=== PATIENT | female | born 1985 | race Caucasian/White ===

== ENCOUNTER 2016-10-22 17:13 | Inpatient (IN) | payer MEDICAID, OTHER ==
[~2016-10-22] VITALS: Ht 170.2 cm; Wt 69.6 kg
[2016-10-22] VITALS (7 sets, daily range): BP systolic 117–151; BP diastolic 79–93
[2016-10-22] MEDS ORDERED: humalog insulin pump (17:29)
[2016-10-22] MEDS ORDERED: HYDR50CA PO (17:29)
[2016-10-22] MEDS ORDERED: BUSP30TA2 PO (17:29)
[2016-10-22] MEDS ORDERED: NAPR500T PO (17:29)
[2016-10-22] MEDS ORDERED: GABA800T2 PO (17:29)
[2016-10-22] MEDS ORDERED: NS IV 1000 ML 1,000 ML IV ONE ×2 (18:42→20:22)
--- NOTE | 2016-10-22 19:12 | Diagnostic Imaging Report ---
INDICATION: History of previous fracture. Infection. COMPARISON: None FINDINGS: Multiple deformities of the toes of the right foot are identified. There is comminuted deformity involving the distal margins of the first proximal phalanx. There is underlying osteolysis. There may be some osteolysis involving the proximal margins of the first distal phalanx as well. Evaluation of the second toe demonstrates extensive osteolysis involving the distal phalanx. There is transverse oriented fracture involving the proximal margins of the second middle phalanx as well. There is displacement of the proximal fracture fragments with proximal retraction of the distal fracture fragment. The third and fourth toes have an unremarkable radiographic appearance. Evaluation of the fifth toe demonstrates acute appearing transverse oriented fracture of the distal phalanx. No unexpected radiopaque foreign bodies are seen. There is significant soft tissue swelling, particularly involving the second toe. IMPRESSION: 1. Multiple deformities of the toes of the right foot as described above. Osteolysis of the first proximal phalanx and second distal phalanx are identified and are consistent with underlying osteomyelitis. 2. Transverse oriented fractures involving the proximal margins of the second middle phalanx and fifth distal phalanx are also present. 3. There may be some early or mild osteomyelitis involving the proximal margins of the first distal phalanx as well. Dictated by: Dictated on workstation # [id number]
[2016-10-22] MEDS ORDERED: PIPERACILLIN SODIUM/TAZOBACTAM 4.5 GM in NS (IVPB) 100 ML IV ONE (19:15)
[2016-10-22] MEDS ORDERED: VANCOMYCIN IV ADD-VANTAGE 1,000 MG in SODIUM CHLORIDE (ADD-VANTAGE) 250 ML IV ONE (19:15)
[2016-10-22] MEDS ORDERED: fentaNYL INJECTION 100 MCG/2 ML AMP IVP ONE (19:30)
[2016-10-22 19:39] LABS: BASOPHILS # (AUTO) 0.1 10^3/uL (0.0-0.1); BASOPHILS % (AUTO) 1 % (0-10); EOSINOPHILS # (AUTO) 0.2 10^3/uL (0.0-0.3); EOSINOPHILS % (AUTO) 2 % (0-10); LYMPHOCYTES # (AUTO) 2.4 X 10^3 (1.0-4.0); LYMPHOCYTES % (AUTO) 33 % (12-44); MEAN CORPUSCULAR HEMOGLOBIN 25 PG (25-34); MEAN CORPUSCULAR HGB CONC 33 G/DL (32-36); MEAN CORPUSCULAR VOLUME 76 FL (80-99); MEAN PLATELET VOLUME 10.8 FL (7.4-10.4); MONOCYTES % (AUTO) 13 % (0-12); NEUTROPHILS # (AUTO) 3.8 X 10^3 (1.8-7.8); NEUTROPHILS % (AUTO) 51 % (42-75); PLATELET COUNT 267 10^3/uL (130-400); RED CELL DISTRIBUTION WIDTH 14.4 % (10.0-14.5); WHITE BLOOD COUNT 7.4 10^3/uL (4.3-11.0)
[2016-10-22 20:18] LABS: ALBUMIN 3.7 G/DL (3.2-4.5); BILIRUBIN,TOTAL 0.2 MG/DL (0.1-1.0); CALCIUM 8.7 MG/DL (8.5-10.1); CREATININE SERUM 1.61 MG/DL (0.60-1.30); TOTAL PROTEIN 7.4 G/DL (6.4-8.2); hs C REACTIVE PROTEIN 0.38 MG/DL (0.00-0.50)
[2016-10-22 20:21] LABS: POTASSIUM 7.2 MMOL/L (3.6-5.0)
[2016-10-22] MEDS ORDERED: inSUlin (REGULAR) HUMAN 1 UNIT/0.01 ML (CHARGE PER UNIT) IV ONE ×2 (20:30→21:30)
[2016-10-22] MEDS ORDERED: SOD POLYSTERENE 15 GM/60 ML (KAYEXALATE) UNIT DOSE PO ONE (20:30)
[2016-10-22 20:50] LABS: BILIRUBIN,URINE NEGATIVE (NEGATIVE); KETONES,URINE NEGATIVE (NEGATIVE); LEUKOCYTE ESTERASE ,URINE NEGATIVE (NEGATIVE); NITRITE,URINE NEGATIVE (NEGATIVE); PH,URINE 5 (5-9); PROTEIN,URINE NEGATIVE (NEGATIVE); UROBILINOGEN,URINE NORMAL (NORMAL)
[2016-10-22 20:53] LABS: SQUAMOUS EPITHELIAL CELL,UR 25-50 /HPF; WBC,URINE 0-2 /HPF
--- NOTE | 2016-10-22 21:38 | ED General ---
General Chief Complaint: Lower Extremity Stated Complaint: R TOE INFECTION Nursing Triage Note: pt reports right 2nd toe infection x 1 month. she has taken bactrim, but toe hasn't improved. Nursing Sepsis Screen: No Definite Risk Source of Information: Patient Exam Limitations: No Limitations History of Present Illness Time Seen by Provider: 18:30 Initial Comments This 31-year-old woman presents to the emergency room with swollen, painful, and red toes on the right foot. Symptoms have been present for 3-4 weeks. She was placed on Bactrim 1 week and finished the prescription about 2 weeks ago. She had no improvement. She did not follow-up until today. Her primary care provider is [facility] in [place]. She is presently staying at the [facility]. She denies any measured fevers but thinks she may have had some subjective fevers at home. She denies any drug or alcohol use. She does smoke. She is a type I diabetic who has been on insulin since her early teens. She uses an insulin pump. Allergies and Home Medications Allergies Coded Allergies: No Known Drug Allergies (Unverified , 10/22/16) Home Medications (Reported) Buspirone HCl 30 Mg Tablet 30 MG PO TID (Reported) Gabapentin 800 Mg Tablet 800 MG PO TID (Reported) Hydroxyzine Pamoate 50 Mg Capsule 50 MG PO TID (Reported) Naproxen 500 Mg Tablet 500 MG PO BID (Reported) Constitutional: see HPI EENTM: no symptoms reported Respiratory: no symptoms reported Cardiovascular: other (tachycardia) Gastrointestinal: no symptoms reported Genitourinary: no symptoms reported Musculoskeletal: no symptoms reported Skin: other (numerous skin sores) Psychiatric/Neurological: No Symptoms Reported Hematologic/Lymphatic: No Symptoms Reported Past Vntspxi-Llpdgh-Oqlxfy Hx Patient Social History Alcohol Use: Denies Use Recreational Drug Use: No Smoking Status: Current Everyday Smoker Type Used: Cigarettes Recent Foreign Travel: No Contact w/Someone Who Travel: No Recent Infectious Disease Expo: No Surgeries HX Surgeries: Yes Surgeries: Cardiac (as an ), Section Respiratory Hx Respiratory Disorders: Yes (tobaccoism) Cardiovascular Hx Cardiac Disorders: Yes (cardiac surgery as an ) Neurological Hx Neurological Disorders: No Reproductive System : No Genitourinary Hx Genitourinary Disorders: No Gastrointestinal Hx Gastrointestinal Disorders: Yes (celiac disease) Musculoskeletal Hx Musculoskeletal Disorders: No Endocrine Hx Endocrine Disorders: Yes Endocrine Disorders: Diabetes, Insulin dep (type I diabetes since early teens) HEENT HX ENT Disorders: No Cancer Hx Cancer: No Psychosocial Hx Psychiatric Problems: No Integumentary HX Skin/Integumentary Disorder: No Family Medical History Significant Family History: No Pertinent Family Hx Physical Exam Vital Signs Vital Sign - Last 12Hours 10/22/16 17:25 Temp 97.9 Pulse 109 Resp 18 B/P 119/78 Capillary Refill : Less Than 3 Seconds General Appearance: No Apparent Distress WD/WN HEENT: PERRL/EOMI Normal ENT Inspection Neck: Normal Inspection Respiratory: Lungs Clear Normal Breath Sounds No Accessory Muscle Use No Respiratory Distress Cardiovascular: No Edema No Murmur Tachycardia Gastrointestinal: Normal Bowel Sounds Non Tender Soft Extremity: Other (numerous skin sores. The right great toe is tender and swollen. The right second toe is markedly edematous, erythematous, and tender. The right fifth toe is tender and swollen with mild erythema. There is streaking of erythema from the second toe up the dorsum of the foot.) Neurologic/Psychiatric: Alert Oriented x3 No Motor/Sensory Deficits Normal Mood/Affect bilingual interpreter II-XII Norm as Tested Skin: Normal Color Warm/Dry Other (numerous skin sores in various stages throughout the body. See extremity exam above) Progress/Results/Core Measures Results/Orders Lab Results Laboratory Tests Test 10/22/16 19:30 10/22/16 19:45 10/22/16 20:30 10/22/16 21:02 Range/Units Basophils # (Auto) 0.1 0.0-0.1 10^3/uL Basophils (%) (Auto) 1 0-10 % Eosinophils # (Auto) 0.2 0.0-0.3 10^3/uL Eosinophils (%) (Auto) 2 0-10 % Hematocrit 33 L 35-52 % Hemoglobin 10.9 L 11.5-16.0 G/DL Lactic Acid Level 0.8 0.5-2.0 MMOL/L Lymphocytes # (Auto) 2.4 1.0-4.0 X 10^3 Lymphocytes (%) (Auto) 33 12-44 % Mean Corpuscular Hemoglobin 25 25-34 PG Mean Corpuscular Hemoglobin Concent 33 32-36 G/DL Mean Corpuscular Volume 76 L 80-99 FL Mean Platelet Volume 10.8 H 7.4-10.4 FL Monocytes # (Auto) 1.0 0.0-1.0 X 10^3 Monocytes (%) (Auto) 13 H 0-12 % Neutrophils # (Auto) 3.8 1.8-7.8 X 10^3 Neutrophils (%) (Auto) 51 42-75 % Platelet Count 267 130-400 10^3/uL Red Blood Count 4.40 4.35-5.85 10^6/uL Red Cell Distribution Width 14.4 10.0-14.5 % White Blood Count 7.4 4.3-11.0 10^3/uL Alanine Aminotransferase (ALT/SGPT) 40 0-55 U/L Albumin 3.7 3.2-4.5 G/DL Alkaline Phosphatase 163 H 40-136 U/L Anion Gap 12 5-14 MMOL/L Aspartate Amino Transf (AST/SGOT) 17 5-34 U/L BUN/Creatinine Ratio 15 Blood Urea Nitrogen 24 H 7-18 MG/DL C-Reactive Protein High Sensitivity 0.38 0.00-0.50 MG/DL Calcium Level 8.7 8.5-10.1 MG/DL Carbon Dioxide Level 15 L 21-32 MMOL/L Chloride Level 101 98-107 MMOL/L Creatinine 1.61 H 0.60-1.30 MG/DL Estimat Glomerular Filtration Rate 37 Glucose Level 768 *H 70-105 MG/DL Magnesium Level 1.8 1.8-2.4 MG/DL Potassium Level 7.2 *H 3.6-5.0 MMOL/L Serum Test, Qualitative NEGATIVE NEGATIVE Sodium Level 128 L 135-145 MMOL/L Total Bilirubin 0.2 0.1-1.0 MG/DL Total Protein 7.4 6.4-8.2 G/DL Ur Tricyclic Antidepressants Screen NEGATIVE NEGATIVE Urine Amphetamines Screen NEGATIVE NEGATIVE Urine Bacteria TRACE /HPF Urine Barbiturates Screen NEGATIVE NEGATIVE Urine Benzodiazepines Screen NEGATIVE NEGATIVE Urine Bilirubin NEGATIVE NEGATIVE Urine Cannabinoids Screen NEGATIVE NEGATIVE Urine Casts NONE /LPF Urine Clarity CLEAR Urine Cocaine Screen NEGATIVE NEGATIVE Urine Color YELLOW Urine Crystals NONE /LPF Urine Culture Indicated NO Urine Glucose (UA) 4+ H NEGATIVE Urine Ketones NEGATIVE NEGATIVE Urine Leukocyte Esterase NEGATIVE NEGATIVE Urine Methadone Screen NEGATIVE NEGATIVE Urine Methamphetamines Screen NEGATIVE NEGATIVE Urine Mucus NEGATIVE /LPF Urine Nitrite NEGATIVE NEGATIVE Urine Opiates Screen NEGATIVE NEGATIVE Urine Oxycodone Screen NEGATIVE NEGATIVE Urine Phencyclidine Screen NEGATIVE NEGATIVE Urine Propoxyphene Screen NEGATIVE NEGATIVE Urine Protein NEGATIVE NEGATIVE Urine RBC NONE /HPF Urine RBC (Auto) NEGATIVE NEGATIVE Urine Specific Jones 1.015 L 1.016-1.022 Urine Squamous Epithelial Cells 25-50 H /HPF Urine Urobilinogen NORMAL NORMAL MG/DL Urine WBC 0-2 /HPF Urine pH 5 5-9 Glucometer 579 *H 70-110 MG/DL My Orders Orders-CHAUNCEY ALCANTARA MD Cbc With Automated Diff (10/22/16 18:42) Comprehensive Metabolic Panel (10/22/16 18:42) Lactic Acid Analyzer (10/22/16 18:42) Blood Culture (10/22/16 18:42) Ua Culture If Indicated (10/22/16 18:42) O2 (10/22/16 18:42) Saline Lock/Iv-Start (10/22/16 18:42) Vital Signs Adult Sepsis Patie Q1HR (10/22/16 18:42) Remove Rings In Anticipation O (10/22/16 18:42) Hs C Reactive Protein (10/22/16 18:42) Ns Iv 1000 Ml (Sodium Chloride 0.9%) (10/22/16 18:42) Toe(S) (10/22/16 18:42) Vancomycin Iv Add-[place] (Vancomycin Iv (10/22/16 19:15) Piperacillin Sodium/Tazobactam (Zosyn Vi (10/22/16 19:15) Fentanyl Injection (Sublimaze Injection (10/22/16 19:30) Hcg,Qualitative Serum (10/22/16 19:26) Drug Screen Stat (Urine) (10/22/16 20:19) Magnesium (10/22/16 20:21) Ekg Tracing (10/22/16 20:21) Monitor-Rhythm Ecg Trace Only (10/22/16 20:21) Insulin (Regular) Human (Humulin R (Per (10/22/16 20:30) Ns Iv 1000 Ml (Sodium Chloride 0.9%) (10/22/16 20:22) Sodium Polystyrene Sulfonate (Kayexalate (10/22/16 20:30) Insulin (Regular) Human (Humulin R (Per (10/22/16 21:30) Basic Metabolic Panel (10/22/16 21:27) Medications Given in ED Current Medications Medications Dose Ordered Sig/Dipti Route Start Time Stop Time Status Last Admin Dose Admin Fentanyl Citrate 50 mcg ONCE ONCE IVP 10/22/16 19:30 10/22/16 19:31 DC 10/22/16 19:44 50 MCG Insulin Human Regular 5 unit ONCE ONCE IV 10/22/16 21:30 10/22/16 21:31 DC 10/22/16 21:41 5 UNIT Insulin Human Regular 10 unit ONCE ONCE IV 10/22/16 20:30 10/22/16 20:31 DC 10/22/16 20:32 10 UNIT Piperacillin Sod/ Tazobactam Sod/ Sodium Chloride 100 ml @ 200 mls/hr ONCE ONCE IV 10/22/16 19:15 10/22/16 19:44 DC 10/22/16 19:57 200 MLS/HR Sodium Polystyrene Sulfonate 15 gm ONCE ONCE PO 10/22/16 20:30 10/22/16 20:31 DC 10/22/16 22:03 15 GM Sodium Chloride 1,000 ml @ 0 mls/hr Q0M ONCE IV 10/22/16 18:42 10/22/16 18:44 DC 10/22/16 19:20 1,000 MLS/HR Vancomycin HCl 1000 mg/Sodium Chloride 250 ml @ 250 mls/hr ONCE ONCE IV 10/22/16 19:15 10/22/16 20:19 DC 10/22/16 21:14 250 MLS/HR Vital Signs/I&O Vital Sign - Last 12Hours 10/22/16 17:25 Temp 97.9 Pulse 109 Resp 18 B/P 119/78 Blood Pressure Mean: 92 Point of Care Testing Finger Stick Blood Glucose: 579 Blood Glucose Action Taken: RN and notified Progress Note : Progress Note On assessment patient was noted to be tachycardic with signs of infection in the toes of the right foot. Sepsis workup was pursued. X-ray suggested osteomyelitis of 3 toes. Zosyn and vancomycin were ordered. Blood sugar was found to be markedly elevated. 2 L of normal saline were administered along with a total of 15 units of insulin. Blood cultures were collected prior to antibiotics. X-ray images of the foot were reviewed by Dr. Sandoval. He recommended referral to podiatry. We will admit this patient and treat infection with IV antibiotics. DKA will be corrected in the ICU tonight. Podiatry can be consulted in the next 1-2 days after her other conditions calmed down. Fentanyl was used for pain control. Blood sugars were trending down. Hyperkalemia was noted and Kayexalate was administered in addition to the fluids and insulin. A repeat BMP will be collected at 22:00. ECG Initial ECG Impression Date: Oct 22, 2016 Initial ECG Impression Time: 20:30 Initial ECG Rate: 99 Initial ECG Rhythm: Normal Sinus Comment Sinus rhythm with no ST elevation or depression. T waves are somewhat peaked probably secondary to the hyperkalemia. No abnormal intervals. Diagnostic Imaging Diagonstic Imaging: Xray Plain Films/CT/US/NM/MRI: other (right toes) Comments X-ray viewed by me and report reviewed. See report below: [place], [place] NAME: [facility] REC#: [id number] PT STATUS: REG ER : 1985 PHYSICIAN: CHAUNCEY ALCANTARA MD ADMIT DATE: 10/22/16/ER Draft Date of Exam:10/22/16 TOE(S) INDICATION: History of previous fracture. Infection. COMPARISON: None FINDINGS: Multiple deformities of the toes of the right foot are identified. There is comminuted deformity involving the distal margins of the first proximal phalanx. There is underlying osteolysis. There may be some osteolysis involving the proximal margins of the first distal phalanx as well. Evaluation of the second toe demonstrates extensive osteolysis involving the distal phalanx. There is transverse oriented fracture involving the proximal margins of the second middle phalanx as well. There is displacement of the proximal fracture fragments with proximal retraction of the distal fracture fragment. The third and fourth toes have an unremarkable radiographic appearance. Evaluation of the fifth toe demonstrates acute appearing transverse oriented fracture of the distal phalanx. No unexpected radiopaque foreign bodies are seen. There is significant soft tissue swelling, particularly involving the second toe. IMPRESSION: 1. Multiple deformities of the toes of the right foot as described above. Osteolysis of the first proximal phalanx and second distal phalanx are identified and are consistent with underlying osteomyelitis. 2. Transverse oriented fractures involving the proximal margins of the second middle phalanx and fifth distal phalanx are also present. 3. There may be some early or mild osteomyelitis involving the proximal margins of the first distal phalanx as well. Dictated on workstation # [id number] Dict: 10/22/161904 Trans: 10/22/161911 GREGORIO [id number] Interpreted by: SALMA MALDONADO Departure Communication Time/Spoke to Admitting Phy: 21:[address] Jay Impression Impression: Primary Impression: Diabetic ketoacidosis Qualified Code: E10.10 - Type 1 diabetes mellitus with ketoacidosis without coma Additional Impressions: Hyperkalemia Osteomyelitis of toe of right foot Disposition: ADMITTED INPATIENT Condition: Improved Decision to Admit Reason: Admit from ER (General) Decision to Admit/Date: Oct 22, 2016 Time/Decision to Admit Time: 20:00 Departure-Patient Inst. Referrals: NO,LOCAL PHYSICIAN (PCP/Family) Primary Care Physician CHAUNCEY ALCANTARA MD Oct 22, 2016 21:38
[2016-10-22] MEDS ORDERED: 1/2 NS IV SOLUTION 1,000 ML IV SCH (22:30)
[2016-10-22] MEDS ORDERED: CATHETER FLUSH 10 ML SYR IV PRN (22:30)
[2016-10-22] MEDS ORDERED: REGULAR inSUlin DRIP 250 UNITS/NS 250 ML IV SCH ×2 (22:30)
[2016-10-22] MEDS ORDERED: DEXTROSE 10% IV SOLUTION 1,000 ML IV SCH (22:30)
[2016-10-22] MEDS ORDERED: NS IV 1000 ML X 1 WIDE OPEN IV ONE (22:30)
[2016-10-22] MEDS ORDERED: NS (IVPB) 100 ML ONE (22:36)
[2016-10-22] MEDS: HYDROcodone/APAP 5 MG/325 MG (LORTAB) TAB PO PRN (22:41)
[2016-10-22 23:05] LABS: CALCIUM 7.8 MG/DL (8.5-10.1); CREATININE SERUM 1.17 MG/DL (0.60-1.30); POTASSIUM 5.2 MMOL/L (3.6-5.0)
[2016-10-23] VITALS (10 sets, daily range): BP systolic 112–134; BP diastolic 72–102
[2016-10-23] MEDS ORDERED: inSUlin DETERMIR 1 UNIT/0.01 ML (LEVEMIR) CHARGE PER UNIT SQ ONE (00:38)
[2016-10-23] MEDS ORDERED: inSUlin (REGULAR) HUMAN 1 UNIT/0.01 ML (CHARGE PER UNIT) ONE ×2 (00:38→04:06)
[2016-10-23] MEDS: inSUlin ASPART (NovoLOG) 1 UNIT/0.01 ML (CHARGE PER UNIT) SC SCH ×2 (01:00→05:40)
[2016-10-23] MEDS ORDERED: inSUlin DETERMIR 1 UNIT/0.01 ML (LEVEMIR) CHARGE PER UNIT SQ SCH (01:28)
[2016-10-23] MEDS ORDERED: PIPERACILLIN/TAZOBACTAM 4.5 GM/NS 100 ML IVPB IV SCH ×2 (01:30)
[2016-10-23 02:00] LABS: CALCIUM 8.3 MG/DL (8.5-10.1); CREATININE SERUM 1.24 MG/DL (0.60-1.30); POTASSIUM 5.4 MMOL/L (3.6-5.0)
[2016-10-23 02:33] LABS: CALCIUM 7.9 MG/DL (8.5-10.1); CREATININE SERUM 1.15 MG/DL (0.60-1.30); POTASSIUM 4.9 MMOL/L (3.6-5.0)
[2016-10-23] MEDS: HYDROcodone/APAP 5 MG/325 MG (LORTAB) TAB PO PRN ×6 (02:41→23:42)
[2016-10-23] MEDS: NS IV 1000 ML 1,000 ML IV SCH ×2 (02:42→05:30)
[2016-10-23] MEDS ORDERED: NICOTINE 14 MG (NICODERM) PATCH TD ONE (02:59)
[2016-10-23] MEDS ORDERED: NS (IVPB) 250 ML ONE (04:05)
[2016-10-23 04:07] LABS: BASOPHILS # (AUTO) 0.1 10^3/uL (0.0-0.1); BASOPHILS % (AUTO) 1 % (0-10); EOSINOPHILS # (AUTO) 0.2 10^3/uL (0.0-0.3); EOSINOPHILS % (AUTO) 4 % (0-10); LYMPHOCYTES # (AUTO) 2.6 X 10^3 (1.0-4.0); LYMPHOCYTES % (AUTO) 38 % (12-44); MEAN CORPUSCULAR HEMOGLOBIN 24 PG (25-34); MEAN CORPUSCULAR HGB CONC 32 G/DL (32-36); MEAN CORPUSCULAR VOLUME 75 FL (80-99); MEAN PLATELET VOLUME 10.8 FL (7.4-10.4); MONOCYTES # (AUTO) 0.7 X 10^3 (0.0-1.0); MONOCYTES % (AUTO) 11 % (0-12); NEUTROPHILS # (AUTO) 3.3 X 10^3 (1.8-7.8); NEUTROPHILS % (AUTO) 47 % (42-75); PLATELET COUNT 380 10^3/uL (130-400); RED BLOOD COUNT 4.14 10^6/uL (4.35-5.85); RED CELL DISTRIBUTION WIDTH 14.4 % (10.0-14.5); WHITE BLOOD COUNT 6.9 10^3/uL (4.3-11.0)
[2016-10-23] MEDS ORDERED: LACTATED RINGERS 1,000 ML IV ONE (04:09)
[2016-10-23 04:32] LABS: CALCIUM 7.8 MG/DL (8.5-10.1); CREATININE SERUM 1.14 MG/DL (0.60-1.30); MAGNESIUM 1.4 MG/DL (1.8-2.4); PHOSPHORUS 3.9 MG/DL (2.3-4.7)
[2016-10-23] MEDS: MAGNESIUM 1 GM/100 ML IVPB 100 ML IV SCH ×4 (05:40→07:11)
[2016-10-23] MEDS: CATHETER FLUSH 10 ML SYR IV SCH ×3 (05:43→22:00)
[2016-10-23] MEDS ORDERED: POTASSIUM CL 10MEQ/50ML IVPB 50 ML IV SCH (06:00)
[2016-10-23] MEDS ORDERED: KCL 20 MEQ TAB (K-DUR) PO SCH (06:00)
[2016-10-23] MEDS ORDERED: DEXTROSE 50% 50 ML (IMS) SYR IV PRN (06:00)
[2016-10-23] MEDS ORDERED: INSULIN REGULAR TPN IV SCH (06:00)
[2016-10-23] MEDS ORDERED: NORMAL SALINE IV SCH (06:00)
[2016-10-23] MEDS ORDERED: DRIP ONLY IV SCH (06:00)
[2016-10-23] MEDS ORDERED: LACTATED RINGERS 1,000 ML IV SCH (06:15)
[2016-10-23 06:47] LABS: ANION GAP 9 MMOL/L (5-14); BLOOD UREA NITROGEN 18 MG/DL (7-18); BUN/CREATININE RATIO 17; CALCIUM 7.9 MG/DL (8.5-10.1); CARBON DIOXIDE 15 MMOL/L (21-32); CHLORIDE 113 MMOL/L (98-107); CREATININE SERUM 1.03 MG/DL (0.60-1.30); GFR ESTIMATED > 60; GLUCOSE 154 MG/DL (70-105); POTASSIUM 4.6 MMOL/L (3.6-5.0); SODIUM 137 MMOL/L (135-145)
--- NOTE | 2016-10-23 07:58 | Diagnostic Imaging Report ---
INDICATION: Dyspnea, hypokalemia, diabetic ketoacidosis, osteomyelitis of the toes. DISCUSSION: Single portable upright view of the chest was obtained, no comparison. Discoid atelectasis is noted within the right lung base. No focal consolidation, pleural fluid, or pneumothorax. Normal heart size. No osseous abnormality. IMPRESSION: 1. Negative portable chest. Dictated by: Dictated on workstation # [id number]
[2016-10-23] MEDS ORDERED: TROUGH ORDER-PHARMACY XX NR (08:00)
[2016-10-23] MEDS ORDERED: inSUlin REGULAR TPN/DRIP ONLY 250 UNITS in NORMAL SALINE 247.5 ML IV SCH (08:07)
--- NOTE | 2016-10-23 08:26 | History & Physical-Hospitalist ---
HPI History of Present Illness: HPI/Chief Complaint CC: Right foot pain with elevated sugars HPI: This is a 31-year-old white female clinic patient of [facility] with a past medical history of type I diabetes on insulin pump the presents to the emergency room with high sugar and redness to her foot with fever. She hurt her toe by running into a piece of furniture apparently one month ago presented to the clinic one week ago placed on Bactrim and he completed that treatment but felt like she was worse found to have sugar of 736 so admitted to the ICU in [place] [facility] for DKA although eICU managed that situation and found her have normal bicarbonate but she still remains on insulin pump because she says she is allergic to Levemir. Patient has poor IV access due to a history of IV drug abuse so a midline will be placed in addition MRI and bone scan will be obtained and I did speak to Dr. Parkinson who will see her in consultation for possible amputation. She has no pain but does want to eat breakfast. Source: patient Exam Limitations: no limitations Date Seen 10/23/16 Attending Physician Katherine Jay MD PCP No,Local Physician Referring Physician Date of Admission Oct 22, 2016 at 21:43 Home Medications & Allergies Home Medications Reviewed patient Home Medication Reconciliation Form Allergies Coded Allergies: No Known Drug Allergies (Unverified , 10/22/16) Past Ldixtfb-Fyaoht-Kwsqqy Hx Patient Social History Marrital Status: single Employed/Student: unemployed Alcohol Use: Denies Use Recreational Drug Use: No Smoking Status: Current Everyday Smoker Type Used: Cigarettes Recent Foreign Travel: No Contact w/other who traveled: No Recent Hopitalizations: No Recent Infectious Disease Expo: No Surgeries HX Surgeries: Yes Surgeries: Cardiac (as an infant), Section Respiratory Hx Respiratory Disorders: Yes (tobaccoism) Cardiovascular Hx Cardiovascular Disorders: Yes (cardiac surgery as an ) Neurological Hx Neurological Disorders: Yes Neurological Disorders: Neuropathy Reproductive System : No Genitourinary Hx Genitourinary Disorders: No Gastrointestinal Hx Gastrointestinal Disorders: Yes (celiac disease) Musculoskeletal Hx Musculoskeletal Disorders: No Endocrine Hx Endocrine Disorders: Yes Endocrine Disorders: Diabetes, Insulin dep (type I diabetes since early teens) HEENT HX ENT Disorders: No Cancer Hx Cancer: No Psychosocial Hx Psychiatric Problems: No Integumentary HX Skin/Integumentary Disorder: No Family Medical History Significant Family History: No Pertinent Family Hx Review of Systems Constitutional: see HPI dizziness fever weakness EENTM: no symptoms reported Respiratory: no symptoms reported Cardiovascular: no symptoms reported Gastrointestinal: no symptoms reported Genitourinary: no symptoms reported Musculoskeletal: joint pain (right toe pain) Skin: no symptoms reported Psychiatric/Neurological: No Symptoms Reported All Other Systems Reviewed Negative Unless Noted: Yes Physical Exam Physical Exam Vital Signs Vital Sign - Last 12Hours 10/22/16 10/22/16 10/22/16 17:25 22:06 22:20 Temp 97.9 Pulse 109 Resp 18 B/P 119/78 Pulse Ox 98 O2 Delivery Room Air Capillary Refill : Less Than 3 Seconds General Appearance: No Apparent Distress WD/WN Chronically ill Eyes: Bilateral Eye Normal Inspection, Bilateral Eye PERRL HEENT: PERRL/EOMI Normal ENT Inspection Pharynx Normal Neck: Full Range of Motion Normal Inspection Non Tender Supple Carotid Bruit Respiratory: Chest Non Tender Lungs Clear Normal Breath Sounds No Accessory Muscle Use No Respiratory Distress Cardiovascular: Regular Rate, Rhythm No Edema No Gallop No JVD No Murmur Normal Peripheral Pulses Gastrointestinal: Normal Bowel Sounds No Organomegaly No Pulsatile Mass Non Tender Soft Back: Normal Inspection No CVA Tenderness No Vertebral Tenderness Extremity: Normal Capillary Refill Normal Inspection Normal Range of Motion Non Tender No Calf Tenderness No Pedal Edema Other (right great toe and second toe with mild edema and tenderness and decreased range of motion with erythema) Neurologic/Psychiatric: Alert Oriented x3 No Motor/Sensory Deficits Normal Mood/Affect Skin: Normal Color Warm/Dry Lymphatic: No Adenopathy Results Results/Procedures Lab Laboratory Tests 10/22/16 19:30 10/22/16 19:45 10/22/16 22:36 10/23/16 00:32 10/23/16 02:00 10/23/16 03:54 10/23/16 06:15 Assessment/Plan Admission Diagnosis Assessment: Right great toe and second toe pain due to fracture 1 month ago with likely osteomyelitis Type I diabetes on insulin pump [id number] with labile sugars allergic to long-acting insulin on insulin pump History of IV drug abuse poor IV access midline will be placed Neuropathy Anxiety Smoker Assessment and Plan Check MRI and bone scan Consult Dr. Parkinson for general surgery possible 8 dictation Zosyn and vancomycin empirically Insulin JESSICA Smith DO Oct 23, 2016 08:26
[2016-10-23] MEDS ORDERED: FLU TRIvalent (5 YOA+) 2016-17 (AFLURIA) 0.5 ML IM ONE (09:15)
[2016-10-23] MEDS: VANCOMYCIN 1 GM/NS 250 ML IVPB IV SCH ×4 (11:16→22:08)
[2016-10-23] MEDS: PIPERACILLIN/TAZOBACTAM 4.5 GM/NS 100 ML IVPB IV SCH ×4 (11:17→22:03)
--- NOTE | 2016-10-23 11:19 | Diagnostic Imaging Report ---
PROCEDURE: MRI right lower extremity without contrast. TECHNIQUE: Multiplanar, multisequence non contrast-enhanced MRI of the right lower extremity was accomplished. INDICATION: Second greater than first toe pain, redness, swelling. Study interpreted in correlation with plain films performed one day prior. FINDINGS: There is marked edema and destructive changes with cortical disruption of the distal greater than middle phalanx of the second toe with overlying cellulitis and skin thickening. There is abnormal architectural distortion, cortical irregularity, and edematous signal involving the distal third of the proximal phalanx of the great toe. MRI findings correlate with areas of bony destruction and abnormal lucencies noted at earlier radiographs and are accompanied by soft tissue swelling. Osteomyelitis would be suspected in the appropriate clinical scenario. No abscess or discrete drainable fluid collection was found, and the remaining marrow signal intensity of the forefoot unremarkable. There is some dorsal forefoot subcutaneous edema. IMPRESSION: Marrow edema, architectural disorganization, cortical destructions involve distal greater than middle phalanges of the second toe and the distal aspect, proximal phalanx, great toe and are presumptively owing to osteomyelitis. There is regional soft tissue swelling present. There is no drainable or discrete fluid collection. Remaining osseous structures appeared normal. Dictated by: Dictated on workstation # [id number]
[2016-10-23] MEDS ORDERED: INSULIN VIAL ASPART for PUMP 100 UNIT/ML VIAL SQ SCH (11:30)
[2016-10-23] MEDS: ONDANSETRON 4 MG/2 ML (SDV) Z0FRAN IV PRN ×2 (11:53→17:01)
[2016-10-23] MEDS: hydrOXYzine (VISTARIL) 25 MG CAP PO SCH ×2 (13:13→21:56)
[2016-10-23] MEDS: GABAPENTIN 400 MG (NEURONTIN) CAP PO SCH ×2 (13:14→21:56)
[2016-10-23] MEDS: NAPROXEN 250 MG (NAPROSYN) TABLET PO SCH ×2 (13:14→19:02)
[2016-10-23] MEDS: busPIRone 15 MG (BUSPAR) TABLET PO SCH ×2 (13:14→21:56)
[2016-10-23] MEDS ORDERED: INSU100V SQ (13:17)
[2016-10-23] MEDS ORDERED: BUSP15TA60 PO (13:17)
[2016-10-23] MEDS ORDERED: LISI-556 PO (13:21)
[2016-10-23] MEDS ORDERED: PARO20TA5 PO (13:21)
[2016-10-23] MEDS ORDERED: OMEP40CA36 PO (13:21)
--- NOTE | 2016-10-23 18:25 | Consultation ---
History of Present Illness History of Present Illness Patient Consulted On(brooklynn/time) 10/23/16 18:19 Date of Admission History of Present Illness Consult requested on 31 yo female admitted for hyperglycemia with secondary right great, 2nd, and 3rd toe possible osteomyelitis. She has a past medical history of type I diabetes on insulin pump who presented to the emergency room; she is currently admitted to the ICU in for DKA. X-rays, bone scan, MRI were reviewed. Secondary consult as requested by Dr. Parkinson. Patient has poor IV access due to a history of IV drug abuse, thus we will obtain an FLORI to determine arterial flow to the affected extremity. Allergies and Home Medications Allergies Coded Allergies: No Known Drug Allergies (Unverified , 10/22/16) Home Medications Buspirone HCl 15 Mg Tablet 30 MG PO TID (Reported) LAST FILLED #168 09-11-16 TAKES 2 (15MG) TABLETS Gabapentin 800 Mg Tablet 800 MG PO TID (Reported) Hydroxyzine Pamoate 50 Mg Capsule 50 MG PO TID (Reported) Insulin Lispro 100 Unit/1 Ml Vial SQ PER INSULIN PUMP (Reported) Lisinopril 5 Mg Tablet 5 MG PO DAILY (Reported) Naproxen 500 Mg Tablet 500 MG PO BID (Reported) Omeprazole 40 Mg Capsule.dr 40 MG PO DAILY (Reported) Paroxetine HCl 20 Mg Tablet 20 MG PO DAILY (Reported) Past Eppvinf-Qitipf-Pgxgfb Hx Patient Social History Alcohol Use: Denies Use Recreational Drug Use: No Smoking Status: Current Everyday Smoker Type Used: Cigarettes Recent Foreign Travel: No Contact w/Someone Who Travel: No Recent Infectious Disease Expo: No Recent Hopitalizations: No Physical Abuse Screen: Yes Sexual Abuse: No Immunizations Up To Date PED Vaccines UTD: No Seasonal Allergies Seasonal Allergies: No Surgeries HX Surgeries: Yes Surgeries: Cardiac (as an ), Section Respiratory Hx Respiratory Disorders: Yes (tobaccoism) Cardiovascular Hx Cardiac Disorders: Yes (cardiac surgery as an ) Neurological Hx Neurological Disorders: Yes Neurological Disorders: Neuropathy Reproductive System : No Genitourinary Hx Genitourinary Disorders: No Gastrointestinal Hx Gastrointestinal Disorders: Yes (celiac disease) Musculoskeletal Hx Musculoskeletal Disorders: No Endocrine Hx Endocrine Disorders: Yes Endocrine Disorders: Diabetes, Insulin dep (type I diabetes since early teens) HEENT HX ENT Disorders: No Cancer Hx Cancer: No Psychosocial Hx Psychiatric Problems: No Integumentary HX Skin/Integumentary Disorder: No Family Medical History Significant Family History: No Pertinent Family Hx Physical Exam-General Problems Physical Exam Vital Signs Vital Sign - Last 12Hours 10/22/16 10/22/16 10/22/16 17:25 22:06 22:20 Temp 97.9 Pulse 109 Resp 18 B/P 119/78 Pulse Ox 98 O2 Delivery Room Air Capillary Refill : Less Than 3 Seconds Assessment/Plan Assessment/Plan Admission Diagnosis/Plan Patient high risk for poor healing. Will order FLORI study of the right lower extremity. DX: Osteomyelitis Right Great, 2nd, and 3rd toe. Plan: Once stable and discharged, will refer to Dr. Coello for evaluation and further treatment. Clinical Quality Measures DVT/VTE Risk/Contraindication: Risk Factor Score Per Nursin RFS Level Per Nursing on Admit: 1=Low/No VTE PPX Vital Signs Vitals Signs Temperature: 97.8, Source: Tympanic, Heart Rate: 99, Respiratory Rate: 17, BP: 134/75, Pulse Oximetry: 98 Labs Laboratory Tests 10/22/16 19:30 10/22/16 19:45 10/22/16 22:36 10/23/16 00:32 10/23/16 02:00 10/23/16 03:54 10/23/16 06:15 ROS-Standard Review of Systems ROS Laboratory Tests 10/23/16 11:03: Glucometer 232 10/23/16 13:49: Glucometer 476 10/23/16 15:32: Glucometer 532 10/23/16 16:38: Glucometer 560 10/23/16 17:47: Glucometer 520 GUERRIERKRISTA BIOLOGY TEACHER Oct 23, 2016 18:25
[2016-10-23] MEDS: PANTOPRAZOLE 40 MG (PROTONIX) TAB PO SCH (19:02)
--- NOTE | 2016-10-23 20:27 | Diagnostic Imaging Report ---
INDICATION: History of previous fractures. Infection with redness and swelling. TECHNIQUE: 26.3 mCi technetium-99m MDP administered with three-phase bone imaging obtained over the feet. CORRELATION STUDY: Recent radiograph imaging of one day earlier. FINDINGS: On the dynamic blood flow images, there is asymmetric uptake about the distal aspect of the right foot. This is likely predominantly in the region of the phalanges of the second toe as well as the proximal phalanges of the great toe. Very questionable subtle findings of uptake about the distal aspect likely the second toe of the left foot. Blood pool images demonstrate progressive accumulation of radiotracer within the proximal phalanx of the right great toe as well as through the likely proximal, mid and distal aspect of second phalanx. There is also uptake at the of the mid to distal aspect of the of the fifth toe. There is perhaps minimal uptake about the distal aspect of the great toe of the left foot. Delayed uptake demonstrates rather prominent uptake at the region of the proximal phalanx of the great toe as well as within the middle and distal and perhaps to a lesser degree proximal phalanx of the second digit. There is also uptake within the likely distal aspect of the fifth toe. There is uptake about the medial aspect of the left foot, likely in region of the first metatarsal head and/or sesamoid bones. There is also uptake about the proximal and distal phalanx of the great toe as well as tip of the second toe. IMPRESSION: Three-phase uptake about the region of the likely proximal phalanx of the great toe and through the middle, distal and likely proximal phalanx of second toe of right foot. Given the apparent fractures may be somewhat attributed to this, however, given three-phase uptake does raise concern for osteomyelitis. Delayed uptake about the right fifth toe. Somewhat indeterminate but predominantly delayed uptake about the first and second toes of the left foot favoring perhaps noninfectious-type uptake. Dictated by: Dictated on workstation # [id number]
[2016-10-23] MEDS: SUCRALFATE 1 GM (CARAFATE) TAB PO SCH (22:02)
[2016-10-23] MEDS: PIPERACILLIN/TAZOBACTAM 4.5 GM/NS100 ML IVPB IV SCH ×2 (23:00)
[2016-10-24] VITALS: BP 130/79
[2016-10-24] MEDS: inSUlin ASPART (NovoLOG) 1 UNIT/0.01 ML (CHARGE PER UNIT) SC SCH ×12 (00:10→22:00)
[2016-10-24 02:00] VITALS: BP 127/75
[2016-10-24] MEDS: HYDROcodone/APAP 5 MG/325 MG (LORTAB) TAB PO PRN ×2 (03:39→08:14)
[2016-10-24] MEDS: NAPROXEN 250 MG (NAPROSYN) TABLET PO SCH ×2 (06:07→16:02)
[2016-10-24] MEDS: CATHETER FLUSH 10 ML SYR IV SCH ×3 (06:07→21:17)
[2016-10-24] MEDS: PANTOPRAZOLE 40 MG (PROTONIX) TAB PO SCH (06:07)
[2016-10-24] MEDS: SUCRALFATE 1 GM (CARAFATE) TAB PO SCH ×4 (06:08→21:16)
[2016-10-24] MEDS: PIPERACILLIN/TAZOBACTAM 4.5 GM/NS100 ML IVPB IV SCH ×6 (06:08→23:22)
[2016-10-24 08:00] VITALS: BP_SYST 135; BP_SYST 186; BP_DIAS 72; BP_DIAS 85
[2016-10-24] MEDS ORDERED: TROUGH ORDER-PHARMACY XX NR (08:00)
[2016-10-24] MEDS: busPIRone 15 MG (BUSPAR) TABLET PO SCH ×3 (08:55→21:17)
[2016-10-24] MEDS: hydrOXYzine (VISTARIL) 25 MG CAP PO SCH ×3 (08:55→21:16)
[2016-10-24] MEDS: GABAPENTIN 400 MG (NEURONTIN) CAP PO SCH ×3 (08:55→21:17)
--- NOTE | 2016-10-24 09:30 | Progress Note-Hospitalist ---
Progress Note HPI/CC on Admission CC: Right foot pain with elevated sugars HPI: This is a 31-year-old white female clinic patient of [facility] with a past medical history of type I diabetes on insulin pump the presents to the emergency room with high sugar and redness to her foot with fever. She hurt her toe by running into a piece of furniture apparently one month ago presented to the clinic one week ago placed on Bactrim and he completed that treatment but felt like she was worse found to have sugar of 736 so admitted to the ICU in [place] treatment for DKA although eICU managed that situation and found her have normal bicarbonate but she still remains on insulin pump because she says she is allergic to Levemir. Patient has poor IV access due to a history of IV drug abuse so a midline will be placed in addition MRI and bone scan will be obtained and I did speak to Dr. Parkinson who will see her in consultation for possible amputation. She has no pain but does want to eat breakfast. Progress Notes/Assess & Plan Date Seen 10/24/16 Admission Dx/Process Assessment: Right great toe and second toe pain due to fracture 1 month ago with likely osteomyelitis Type I diabetes on insulin pump [id number] with labile sugars allergic to long-acting insulin on insulin pump History of IV drug abuse poor IV access midline will be placed Neuropathy Anxiety Smoker Diagonsis/Assessment & Plan Patient doing well except she is prepared for likely amputation of her toes Blood sugar much improved since off insulin drip and we'll restart her insulin pump today I spoke with Dr. Coello and he will make arrangements for likely amputation Midline has been placed in currently on Vanc and Zosyn Once her pain medication increased to hydrocodone 10 so initiated that change Overall still having reflux problems but a lot of social issues in her life she reports Difficulty with follow-up and compliance with medical treatment so we'll try to do everything we can to support this patient while hospitalized No fever, vital signs stable, pleasant Chronically ill Regular rate and rhythm, clear to auscultation bilaterally Right foot with improved edema and erythema but chronic and acute osteomyelitis noted Assessment: Right great toe and second toe pain due to fracture 1 month ago with likely osteomyelitis Type I diabetes on insulin pump [id number] with labile sugars allergic to long-acting insulin on insulin pump History of IV drug abuse poor IV access midline will be placed Neuropathy Anxiety Smoker Checked MRI and bone scan Ortho for amputation Zosyn and vancomycin empirically Insulin pump restarted JESSICA ALMEIDA DO Oct 24, 2016 09:30
[2016-10-24] MEDS: VANCOMYCIN 1 GM/NS 250 ML IVPB IV SCH ×4 (10:12→21:16)
[2016-10-24 12:00] VITALS: BP 118/70
--- NOTE | 2016-10-24 12:10 | Diagnostic Imaging Report ---
EXAMINATION: Ultrasound noninvasive INDICATION: Leg pain The ankle-brachial indices were obtained in the usual manner. The ankle-brachial index on the right is 0.96 and on the left is 0.97 (normal 1.00 or greater). IMPRESSION: The ankle-brachial indices are only slightly below normal limits. If further imaging is desired, then a dedicated bilateral lower extremity arterial Doppler exam should be obtained. Dictated by: Dictated on workstation # [id number]
[2016-10-24 12:36] LABS: BASOPHILS # (AUTO) 0.1 10^3/uL (0.0-0.1); BASOPHILS % (AUTO) 1 % (0-10); EOSINOPHILS # (AUTO) 0.2 10^3/uL (0.0-0.3); EOSINOPHILS % (AUTO) 3 % (0-10); LYMPHOCYTES # (AUTO) 2.6 X 10^3 (1.0-4.0); LYMPHOCYTES % (AUTO) 40 % (12-44); MEAN CORPUSCULAR HEMOGLOBIN 25 PG (25-34); MEAN CORPUSCULAR HGB CONC 33 G/DL (32-36); MEAN CORPUSCULAR VOLUME 75 FL (80-99); MEAN PLATELET VOLUME 10.6 FL (7.4-10.4); MONOCYTES # (AUTO) 0.9 X 10^3 (0.0-1.0); MONOCYTES % (AUTO) 14 % (0-12); NEUTROPHILS # (AUTO) 2.7 X 10^3 (1.8-7.8); NEUTROPHILS % (AUTO) 42 % (42-75); PLATELET COUNT 386 10^3/uL (130-400); RED BLOOD COUNT 3.69 10^6/uL (4.35-5.85); RED CELL DISTRIBUTION WIDTH 14.6 % (10.0-14.5); WHITE BLOOD COUNT 6.4 10^3/uL (4.3-11.0)
[2016-10-24] MEDS: HYDROcodone/APAP 10 MG/325 MG (LORTAB) TAB PO PRN ×3 (12:36→21:17)
[2016-10-24 12:57] LABS: ALANINE AMINOTRANSFERASE 29 U/L (0-55); ALBUMIN 2.4 G/DL (3.2-4.5); ANION GAP 4 MMOL/L (5-14); ASPARTATE AMINO TRANSFERASE 20 U/L (5-34); BILIRUBIN,TOTAL < 0.1 MG/DL (0.1-1.0); BLOOD UREA NITROGEN 23 MG/DL (7-18); BUN/CREATININE RATIO 18; CALCIUM 7.6 MG/DL (8.5-10.1); CARBON DIOXIDE 19 MMOL/L (21-32); CHLORIDE 109 MMOL/L (98-107); CREATININE SERUM 1.25 MG/DL (0.60-1.30); GFR ESTIMATED 49; GLUCOSE 341 MG/DL (70-105); SODIUM 132 MMOL/L (135-145); TOTAL PROTEIN 4.9 G/DL (6.4-8.2)
[2016-10-24 16:32] VITALS: BP 129/78
--- NOTE | 2016-10-24 18:08 | Consultation ---
History of Present Illness History of Present Illness Patient Consulted On(brooklynn/time) 10/24/16 18:04 Date of Admission History of Present Illness History of right 1st and 2nd toe fracture @1-2 mo ago now with significant cellulitis and nonhealing with MRI and bone scan findings concern for osteomyelitis. Allergies and Home Medications Allergies Coded Allergies: No Known Drug Allergies (Unverified , 10/22/16) Home Medications Buspirone HCl 15 Mg Tablet 30 MG PO TID (Reported) LAST FILLED #168 09-11-16 TAKES 2 (15MG) TABLETS Gabapentin 800 Mg Tablet 800 MG PO TID (Reported) Hydroxyzine Pamoate 50 Mg Capsule 50 MG PO TID (Reported) Insulin Lispro 100 Unit/1 Ml Vial SQ PER INSULIN PUMP (Reported) Lisinopril 5 Mg Tablet 5 MG PO DAILY (Reported) Naproxen 500 Mg Tablet 500 MG PO BID (Reported) Omeprazole 40 Mg Capsule.dr 40 MG PO DAILY (Reported) Paroxetine HCl 20 Mg Tablet 20 MG PO DAILY (Reported) Past Lanfwzx-Rtehpw-Pmcjyw Hx Patient Social History Alcohol Use: Denies Use Recreational Drug Use: No Smoking Status: Current Everyday Smoker Type Used: Cigarettes Recent Foreign Travel: No Contact w/Someone Who Travel: No Recent Infectious Disease Expo: No Recent Hopitalizations: No Physical Abuse Screen: Yes Sexual Abuse: No Immunizations Up To Date PED Vaccines UTD: No Seasonal Allergies Seasonal Allergies: No Surgeries HX Surgeries: Yes Surgeries: Cardiac (as an infant), Section Respiratory Hx Respiratory Disorders: Yes (tobaccoism) Cardiovascular Hx Cardiac Disorders: Yes (cardiac surgery as an infant) Neurological Hx Neurological Disorders: Yes Neurological Disorders: Neuropathy Reproductive System : No Genitourinary Hx Genitourinary Disorders: No Gastrointestinal Hx Gastrointestinal Disorders: Yes (celiac disease) Musculoskeletal Hx Musculoskeletal Disorders: No Endocrine Hx Endocrine Disorders: Yes Endocrine Disorders: Diabetes, Insulin dep (type I diabetes since early teens) HEENT HX ENT Disorders: No Cancer Hx Cancer: No Psychosocial Hx Psychiatric Problems: No Integumentary HX Skin/Integumentary Disorder: No Family Medical History Significant Family History: No Pertinent Family Hx Physical Exam-General Problems Physical Exam Vital Signs Vital Sign - Last 12Hours 10/22/16 10/22/16 10/22/16 17:25 22:06 22:20 Temp 97.9 Pulse 109 Resp 18 B/P 119/78 Pulse Ox 98 O2 Delivery Room Air Capillary Refill : Less Than 3 SecondsLess Than 3 Seconds Extremities: other (N/V intact to the right foot, swelling cellulitis to the 2nd toe, pain and swelling to the 1st and 2nd toes.) Assessment/Plan Assessment/Plan Admission Diagnosis/Plan 1. Osteomyelitis to the right 1st and 2nd toes -Plan for Toe amputations on Sunday10/29/16 -NPO on 10/29/16 -Cont current care until then. Clinical Quality Measures DVT/VTE Risk/Contraindication: Risk Factor Score Per Nursin RFS Level Per Nursing on Admit: 1=Low/No VTE PPX ORION HUNTER DPM Oct 24, 2016 18:08
[2016-10-24 20:07] VITALS: BP 111/73
[2016-10-25] VITALS: BP 108/70
[2016-10-25] MEDS: HYDROcodone/APAP 10 MG/325 MG (LORTAB) TAB PO PRN ×3 (01:08→14:35)
[2016-10-25] MEDS: inSUlin ASPART (NovoLOG) 1 UNIT/0.01 ML (CHARGE PER UNIT) SC SCH ×8 (02:00→14:00)
[2016-10-25 04:00] VITALS: BP 110/68
[2016-10-25] MEDS: PIPERACILLIN/TAZOBACTAM 4.5 GM/NS100 ML IVPB IV SCH ×4 (06:19→14:21)
[2016-10-25] MEDS: NAPROXEN 250 MG (NAPROSYN) TABLET PO SCH (06:19)
[2016-10-25] MEDS: CATHETER FLUSH 10 ML SYR IV SCH ×2 (06:19→14:22)
[2016-10-25] MEDS: PANTOPRAZOLE 40 MG (PROTONIX) TAB PO SCH (06:19)
[2016-10-25] MEDS: SUCRALFATE 1 GM (CARAFATE) TAB PO SCH ×3 (06:23→15:28)
[2016-10-25 08:15] VITALS: BP 131/84
[2016-10-25] MEDS: busPIRone 15 MG (BUSPAR) TABLET PO SCH ×2 (09:30→12:03)
[2016-10-25] MEDS: GABAPENTIN 400 MG (NEURONTIN) CAP PO SCH ×2 (09:30→12:03)
[2016-10-25] MEDS: hydrOXYzine (VISTARIL) 25 MG CAP PO SCH ×2 (09:30→12:03)
[2016-10-25] MEDS: VANCOMYCIN 1 GM/NS 250 ML IVPB IV SCH ×2 (09:31)
[2016-10-25] MEDS ORDERED: AMOX-358 PO (11:07)
[2016-10-25] MEDS ORDERED: HYDR-3820 PO (11:07)
--- NOTE | 2016-10-25 11:09 | Discharge Instructions ---
Discharge Instructions Discharge Medications New, Converted or Re-Newed RX: RX on Chart New Medications: Amoxicillin/Potassium Clav (Augmentin 875-125 Tablet) 1 Each Tablet 1 EACH PO BID #14 TAB Hydrocodone/Acetaminophen (Hydrocodon-Acetaminophn 10-325) 1 Each Tablet 1 EA PO BID PRN MODERATE PAIN #30 TAB Continued Medications: Buspirone HCl (Buspirone HCl) 15 Mg Tablet 30 MG PO TID LAST FILLED #168 9-17 TAKES 2 (15MG) TABLETS TAB Gabapentin (Gabapentin) 800 Mg Tablet 800 MG PO TID TAB Hydroxyzine Pamoate (Vistaril) 50 Mg Capsule 50 MG PO TID CAP Insulin Lispro (Humalog) 100 Unit/1 Ml Vial SQ PER INSULIN PUMP VIAL Lisinopril (Lisinopril) 5 Mg Tablet 5 MG PO DAILY TAB Naproxen (Naprosyn) 500 Mg Tablet 500 MG PO BID TAB Omeprazole (Omeprazole) 40 Mg Capsule.dr 40 MG PO DAILY CAP Paroxetine HCl (Paroxetine HCl) 20 Mg Tablet 20 MG PO DAILY TAB Patient Instructions Goal/Follow Up Appt: [facility] as scheduled Dr Coello podiatry to schedule appt next week to arrange for probable amputation of two toes Activity & Diet Discharge Diet: ADA Diet Activity as Tolerated: Yes JESSICA ALMEIDA DO Oct 25, 2016 11:09
--- NOTE | 2016-10-25 11:16 | Discharge Summary-Hospitalist ---
Diagnosis/Chief Complaint Date of Admission Oct 22, 2016 at 21:43 Date of Discharge Discharge Date: Oct 25, 2016 Admission Diagnosis Assessment: Right great toe and second toe pain due to fracture 1 month ago with likely osteomyelitis Type I diabetes on insulin pump [id number] with labile sugars allergic to long-acting insulin on insulin pump History of IV drug abuse poor IV access midline will be placed Neuropathy Anxiety Smoker Discharge Diagnosis Assessment: Right great toe and second toe pain due to fracture 1 month ago with osteomyelitis in need of outpatient amputation by Dr. Coello Type I diabetes on insulin pump [id number] with labile sugars allergic to long-acting insulin on insulin pump History of IV drug abuse poor IV access midline will be placed Neuropathy Anxiety Smoker Patient doing well except she is prepared for likely amputation of her toes Blood sugar much improved since off insulin drip and we'll restart her insulin pump today I spoke with Dr. Coello and he will make arrangements for likely amputation Midline has been placed in currently on Vanc and Zosyn Once her pain medication increased to hydrocodone 10 so initiated that change Overall still having reflux problems but a lot of social issues in her life she reports Difficulty with follow-up and compliance with medical treatment so we'll try to do everything we can to support this patient while hospitalized No fever, vital signs stable, pleasant Chronically ill Regular rate and rhythm, clear to auscultation bilaterally Right foot with improved edema and erythema but chronic and acute osteomyelitis noted Assessment: Right great toe and second toe pain due to fracture 1 month ago with likely osteomyelitis Type I diabetes on insulin pump [id number] with labile sugars allergic to long-acting insulin on insulin pump History of IV drug abuse poor IV access midline will be placed Neuropathy Anxiety Smoker Checked MRI and bone scan Ortho for amputation Zosyn and vancomycin empirically Insulin pump restarted Reason Hospital Visit/Course CC: Right foot pain with elevated sugars HPI: This is a 31-year-old white female clinic patient of [facility] with a past medical history of type I diabetes on insulin pump the presents to the emergency room with high sugar and redness to her foot with fever. She hurt her toe by running into a piece of furniture apparently one month ago presented to the clinic one week ago placed on Bactrim and he completed that treatment but felt like she was worse found to have sugar of 736 so admitted to the ICU in [place] treatment for DKA although eICU managed that situation and found her have normal bicarbonate but she still remains on insulin pump because she says she is allergic to Levemir. Patient has poor IV access due to a history of IV drug abuse so a midline will be placed in addition MRI and bone scan will be obtained and I did speak to Dr. Parkinson who will see her in consultation for possible amputation. She has no pain but does want to eat breakfast. Notes from 10/25/2015: Chart Review: No fever Vitals stable No new labs Blood sugars better on insulin pump All Cx negative Pharmacy Review: Augmentin with possible Bactrim suggested. MRSA negative. 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 Last pill was at 6am. Patient Interview: Dr. Almeida informs pt that she may shift to po antibiotic and DC today. Pt agrees to this plan. Pt has been ambulating. Pt is very tired. Pt has a PCP in [place] Pt has sufficient supply of Insulin. no fever vital signs stable, sleepy, oriented 3 Regular rate and rhythm, clear to auscultation bilaterally right foot with minimal edema or erythema Plan: DC with Augmentin for 7 days Follow-up with PCP and Dr. Coello Reduce pain meds for mental clarity Scribed by Efrain Person under the direct supervision of Dr. Almeida. Hospital course: Patient had an uneventful hospital course. She is placed in the ICU presumed DKA source but her bicarbonate was normal but just recorded insulin drip since her insulin pump was somewhat compromised. She was found to have right great toe and second toe with involvement likely osteomyelitis so she was placed on empiric IV antibiotics broad-spectrum with Zosyn and vancomycin and MRI and bone scan revealed osteomyelitis in need of amputation. General surgery did see the patient then referred to podiatry and patient was in no distress no evidence of any sepsis in the cellulitis had improved so she will have toe amputation managed by podiatry Dr. Coello next week after assessed in his office in clinic with a close follow-up a [facility] provider to be sure the foot does not worsen prior to the amputation process. She has a history of noncompliance and no-shows to multiple medical appointments so I recommend that she maintains this plan and will try to support this patient anyway possible. Discharge Summary Discharge Physical Examination Allergies: Coded Allergies: No Known Drug Allergies (Unverified , 10/22/16) Vitals & I&Os Vital Signs Date Time Temp Pulse Resp B/P Pulse Ox O2 Delivery O2 Flow Rate FiO2 10/25/16 04:00 98.2 108 20 110/68 97 Room Air Hospital Course Labs (last 24 hrs) Laboratory Tests 10/24/16 14:38: Glucometer 276H 10/24/16 16:17: Glucometer 175H 10/24/16 18:02: Glucometer 233H 10/24/16 20:04: Glucometer 320H 10/24/16 22:38: Glucometer 329H 10/24/16 23:39: Glucometer 273H 10/25/16 02:18: Glucometer 163H 10/25/16 04:01: Glucometer 224H 10/25/16 06:08: Glucometer 156H 10/25/16 08:21: Glucometer 122H 10/25/16 10:19: Glucometer 97 Microbiology 10/22/16 Blood Culture - Preliminary, Resulted No growth 10/22/16 MRSA Screen - Final, Complete MRSA not isolated Pending Labs Laboratory Tests 10/25/16 06:08: Glucometer 156 10/25/16 08:21: Glucometer 122 10/25/16 10:19: Glucometer 97 Discharge Home Medications: Active Scripts Active Augmentin 875-125 Tablet (Amoxicillin/Potassium Clav) 1 Each Tablet 1 Each PO BID Hydrocodon-Acetaminophn 10-325 (Hydrocodone/Acetaminophen) 1 Each Tablet 1 Ea PO BID PRN Reported Paroxetine HCl 20 Mg Tablet 20 Mg PO DAILY Lisinopril 5 Mg Tablet 5 Mg PO DAILY Omeprazole 40 Mg Capsule.dr 40 Mg PO DAILY Humalog (Insulin Lispro) 100 Unit/1 Ml Vial SQ PER INSULIN PUMP Buspirone HCl 15 Mg Tablet 30 Mg PO TID LAST FILLED #168 09-11-16 TAKES 2 (15MG) TABLETS Vistaril (Hydroxyzine Pamoate) 50 Mg Capsule 50 Mg PO TID Naprosyn (Naproxen) 500 Mg Tablet 500 Mg PO BID Gabapentin 800 Mg Tablet 800 Mg PO TID Instructions to patient/family Please see electonic discharge instructions given to patient. Clinical Quality Measures DVT/VTE Risk/Contraindication: Risk Factor Score Per Nursin RFS Level Per Nursing on Admit: 1=Low/No VTE PPX JESSICA ALMEIDA DO Oct 25, 2016 11:16
[2016-10-25 12:00] VITALS: BP 117/78
[2016-10-25] MEDS: ONDANSETRON 4 MG/2 ML (SDV) Z0FRAN IV PRN (12:03)
[2016-10-25] MEDS ORDERED: LOPERAMIDE 2 MG (IMODIUM) CAP PO NR (14:15)
[2016-10-25] MEDS ORDERED: PARO20TA5 PO (14:54)
[2016-10-25 16:00] VITALS: BP 123/85
--- NOTE | 2016-10-26 10:04 | Progress Note-Standard ---
Standard Progress Note Progress Notes/Assess & Plan Progress/Assessment & Plan Ortho note/dima After review of FLORI (greater than .9) If the patient is off meth, stops smoking and gets control of her diabetes ( hb a1c less than 7.5), she has chance of healing her foot incision. If she doesn't, there is probably very little chance of her foot incision healing and would then require BKA ANUEL VELASQUEZ DO Oct 26, 2016 10:04
[2016-11-10] MEDS ORDERED: HYDR-3729 PO (09:10)
== END 2016-10-25 16:17 | disposition home or self-care (01) | DRG 638 ==
LOC: ER 17:19 → ICU 21:43 → 4TH 10-23 22:50
PROVIDERS: ADMIT Family Medicine; ATTEND Family Medicine
DX: E10.65 Type 1 diabetes mellitus with hyperglycemia (principal); M86.9 Osteomyelitis, unspecified; E87.5 Hyperkalemia; E10.21 Type 1 diabetes mellitus with diabetic nephropathy; K90.0 Celiac disease; F17.210 Nicotine dependence, cigarettes, uncomplicated; F41.9 Anxiety disorder, unspecified; F19.21 Other psychoactive substance dependence, in remission; K21.9 Gastro-esophageal reflux disease without esophagitis; S92.521D Displaced fracture of middle phalanx of right lesser toe(s), subsequent encounter for fracture with routine healing; S92.531D Displaced fracture of distal phalanx of right lesser toe(s), subsequent encounter for fracture with routine healing; W22.03XD Walked into furniture, subsequent encounter; Y99.8 Other external cause status
CPT/HCPCS: 36415; 71010; 73660; 76937; 78315; 80048; 80053; 80202; 80306; 81000; 82962; 83605; 83735; 84100; 84703; 85025; 86141; 87040; 87081; 93005; 93922; 96361; 96365; 96375; 96376

== ENCOUNTER 2016-10-26 22:56 | Emergency (ER) | payer MEDICAID, OTHER ==
[~2016-10-26] VITALS: Ht 170.2 cm; Wt 69.4 kg
[~2016-10-26 22:56] MED LIST: AMOX-358 PO; BUSP15TA60 PO; BUSP30TA2 PO; GABA800T2 PO; HYDR-3820 PO; HYDR50CA PO; INSU100V SQ; LISI-556 PO; NAPR500T PO; OMEP40CA36 PO; PARO20TA5 PO; humalog insulin pump
--- OUTSIDE RECORDS SUMMARY | 2016-10-26 23:00 | XMS REPORT ---
Author Author ANSON SAPP Organization [employer] Address Unknown Phone Unavailable Care Team Providers Care Geology Professor Name Role Phone ANSON SAPP CP Unavailable Allergies No Known Allergies Problems Problem Type Condition Code Onset Dates Condition Status Problem Type 1 diabetes mellitus with diabetic neuropathy E10.40 Active Problem Hepatitis C virus infection, unspecified chronicity B19.20 Active Problem Anxiety disorder, unspecified F41.9 Active Problem 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 Active Problem Hep C w/o coma, chronic B18.2 Active Problem Generalized anxiety disorder F41.1 Active Problem Diabetes type 1, uncontrolled E10.65 Active Problem Celiac disease K90.0 Active Problem Type 1 diabetes mellitus with foot ulcer E10.621 Active Problem Microalbuminuria R80.9 Active Medications Medication Code System Code Instructions Start Date End Date Status Dosage Humalog [facility] [id number] 100 UNIT/ML USE DIRECTED PER INSULIN PUMP- 2 VIALS MONTHLY Results No Known Results Summary Purpose [employer] Submission
--- NOTE | 2016-10-26 23:12 | ED General ---
General Chief Complaint: General Problems/Pain Stated Complaint: SWELLING Nursing Triage Note: Pt to ED via [facility]. Pt ambulatory to ED exam room 7 from ambulance. Pt reports she was just recently discharged from the hospital after being treated for hyperglycemia and hyperkalemia. Pt now c/o bilat lower extremity swelling and pain. Pt reports she has appointment w/ orthopedic surgeon next Sunday to have toe amputated. Nursing Sepsis Screen: No Definite Risk Source of Information: Patient Exam Limitations: No Limitations History of Present Illness Time Seen by Provider: 22:55 Initial Comments here with complaint of bilateral lower extremity swelling and pain. She does have history of diabetes mellitus that is uncontrolled. She was admitted recently due to uncontrolled blood sugars. Reports that the swelling of both legs started today and has persisted. Reports that her blood sugar was elevated this evening. She is on insulin pump and states that is running. She did take 7 units of insulin subcutaneous at the time of ambulance arrival. Her main concern is to bilateral leg pain and swelling. Timing/Duration: 4-6 Hours, Getting Worse Severity: Moderate Associated Systoms: No Chest Pain, No Fever/Chills, No Nausea/Vomiting, No Shortness of Air, No Weakness Allergies and Home Medications Allergies Coded Allergies: No Known Drug Allergies (Unverified , 10/22/16) Home Medications Amoxicillin/Potassium Clav 1 Each Tablet #14 1 EACH PO BID Prescribed by: JESSICA ALMEIDA on 10/25/16 1107 Buspirone HCl 15 Mg Tablet 30 MG PO TID (Reported) LAST FILLED #168 09-11-16 TAKES 2 (15MG) TABLETS Gabapentin 800 Mg Tablet 800 MG PO TID (Reported) Hydrocodone/Acetaminophen 1 Each Tablet #30 1 EA PO BID PRN PRN MODERATE PAIN Prescribed by: JESSICA ALMEIDA on 10/25/16 1107 Hydroxyzine Pamoate 50 Mg Capsule 50 MG PO TID (Reported) Insulin Lispro 100 Unit/1 Ml Vial SQ PER INSULIN PUMP (Reported) Lisinopril 5 Mg Tablet 5 MG PO DAILY (Reported) Naproxen 500 Mg Tablet 500 MG PO BID (Reported) Omeprazole 40 Mg Capsule.dr 40 MG PO DAILY (Reported) Paroxetine HCl 20 Mg Tablet #30 20 MG PO DAILY Prescribed by: MENA TONEY on 10/25/16 9124 Constitutional: see HPINo chills, No fever EENTM: no symptoms reported Respiratory: no symptoms reportedNo dyspnea on exertion, No short of breath Cardiovascular: no symptoms reported edema Gastrointestinal: No nausea, No vomiting Genitourinary: no symptoms reported Musculoskeletal: see HPI muscle pain other (restless leg syndrome bilateral) Skin: see HPI other (left foot with toe requiring possible amputation.) Psychiatric/Neurological: No Symptoms Reported All Other Systems Reviewed Negative Unless Noted: Yes Past Oojollv-Bkrqcr-Rscrsd Hx Patient Social History Alcohol Use: Denies Use Recreational Drug Use: No Smoking Status: Current Everyday Smoker Type Used: Cigarettes Recent Foreign Travel: No Contact w/Someone Who Travel: No Recent Infectious Disease Expo: No Recent Hopitalizations: No Immunizations Up To Date PED Vaccines UTD: No Seasonal Allergies Seasonal Allergies: No Surgeries HX Surgeries: Yes Surgeries: Cardiac, Section Respiratory Hx Respiratory Disorders: Yes (tobaccoism) Cardiovascular Hx Cardiac Disorders: Yes (cardiac surgery as an ) Neurological Hx Neurological Disorders: Yes Neurological Disorders: Neuropathy Genitourinary Hx Genitourinary Disorders: No Gastrointestinal Hx Gastrointestinal Disorders: Yes (celiac disease) Musculoskeletal Hx Musculoskeletal Disorders: No Endocrine Hx Endocrine Disorders: Yes Endocrine Disorders: Diabetes, Insulin dep HEENT HX ENT Disorders: No Cancer Hx Cancer: No Psychosocial Hx Psychiatric Problems: No Integumentary HX Skin/Integumentary Disorder: No Reviewed Nursing Assessment Reviewed/Agree w Nursing PMH: Yes Family Medical History Significant Family History: No Pertinent Family Hx Physical Exam Vital Signs Vital Sign - Last 12Hours 10/26/16 22:59 Temp 97.3 Pulse 92 Resp 18 B/P 125/77 Pulse Ox 97 O2 Delivery Room Air Capillary Refill : Less Than 3 Seconds General Appearance: No Apparent Distress WD/WN HEENT: PERRL/EOMI Pharynx Normal Neck: Non Tender Supple Respiratory: Lungs Clear Normal Breath Sounds Cardiovascular: Regular Rate, Rhythm No Murmur Gastrointestinal: Non Tender Soft Back: Normal Inspection No CVA Tenderness No Vertebral Tenderness Extremity: Normal Range of Motion Pedal Edema (2+ edema up to level of mid tibia bilateral.) Neurologic/Psychiatric: Alert Oriented x3 Skin: Normal Color Warm/DryNo Erythema, Other (wound to the right foot great toe and second toe as well as left foot great and second toe.) Progress/Results/Core Measures Results/Orders Lab Results Laboratory Tests Test 10/27/16 00:00 2/24/17 01:20 Range/Units Alanine Aminotransferase (ALT/SGPT) 50 0-55 U/L Albumin 2.6 L 3.2-4.5 G/DL Alkaline Phosphatase 97 40-136 U/L Anion Gap 7 5-14 MMOL/L Aspartate Amino Transf (AST/SGOT) 46 H 5-34 U/L B-Type Natriuretic Peptide 77.2 <100.0 PG/ML BUN/Creatinine Ratio 19 Basophils # (Auto) 0.1 0.0-0.1 10^3/uL Basophils (%) (Auto) 1 0-10 % Blood Urea Nitrogen 21 H 7-18 MG/DL C-Reactive Protein High Sensitivity 0.22 0.00-0.50 MG/DL Calcium Level 8.1 L 8.5-10.1 MG/DL Carbon Dioxide Level 19 L 21-32 MMOL/L Chloride Level 111 H 98-107 MMOL/L Creatinine 1.08 0.60-1.30 MG/DL D-Dimer 0.87 H 0.00-0.49 UG/ML Eosinophils # (Auto) 0.3 0.0-0.3 10^3/uL Eosinophils (%) (Auto) 4 0-10 % Estimat Glomerular Filtration Rate 58 Glucose Level 135 H 70-105 MG/DL Hematocrit 31 L 35-52 % Hemoglobin 9.8 L 11.5-16.0 G/DL Lymphocytes # (Auto) 3.0 1.0-4.0 X 10^3 Lymphocytes (%) (Auto) 46 H 12-44 % Magnesium Level 1.7 L 1.8-2.4 MG/DL Mean Corpuscular Hemoglobin 24 L 25-34 PG Mean Corpuscular Hemoglobin Concent 32 32-36 G/DL Mean Corpuscular Volume 76 L 80-99 FL Mean Platelet Volume 10.5 H 7.4-10.4 FL Monocytes # (Auto) 0.7 0.0-1.0 X 10^3 Monocytes (%) (Auto) 12 0-12 % Neutrophils # (Auto) 2.3 1.8-7.8 X 10^3 Neutrophils (%) (Auto) 37 L 42-75 % Platelet Count 463 H 130-400 10^3/uL Potassium Level 5.6 H 3.6-5.0 MMOL/L Red Blood Count 4.03 L 4.35-5.85 10^6/uL Red Cell Distribution Width 15.1 H 10.0-14.5 % Sodium Level 137 135-145 MMOL/L Total Bilirubin 0.1 0.1-1.0 MG/DL Total Protein 5.3 L 6.4-8.2 G/DL White Blood Count 6.4 4.3-11.0 10^3/uL Glucometer 63 L 70-110 MG/DL My Orders Orders-JEIMY GUADALUPE MD Cbc With Automated Diff (10/26/16 23:03) Comprehensive Metabolic Panel (10/26/16 23:03) Hs C Reactive Protein (10/26/16 23:03) Fibrin Degradation Products (10/26/16 23:03) Saline Lock/Iv-Start (10/26/16 23:03) BNP (10/26/16 23:04) Magnesium (10/26/16 23:04) Us Venous Lower Ext Harley (10/27/16 01:05) Vital Signs/I&O Vital Sign - Last 12Hours 10/26/16 22:59 Temp 97.3 Pulse 92 Resp 18 B/P 125/77 Pulse Ox 97 O2 Delivery Room Air Blood Pressure Mean: 93 Progress Note : Progress Note Seen and evaluated. IV and labs ordered. Patient refused IV so we will just a blood draw. Monitor patient. Unable to rule out blood clots via d-dimer. Ultrasound bilateral lower extremity ordered. Otherwise labs look fine. Patient did have blood sugar declined to 60s. She was able to eat and tolerated that well. Monitor patient. 0245: DVT evaluation negative by ultrasound. Patient improved overall. Blood sugar 130s. Discharged home with return precautions. Patient verbalize understanding instructions and agreement with plan. Diagnostic Imaging Diagonstic Imaging: Ultrasound Plain Films/CT/US/NM/MRI: leg Comments Bilateral lower extremity negative for DVT. Departure Impression Impression: Primary Impression: Bilateral leg edema Disposition: HOME, SELF-CARE Condition: Improved Departure-Patient Inst. Decision time for Depature: 02:50 Referrals: NO,LOCAL PHYSICIAN (PCP/Family) Primary Care Physician Patient Instructions: Dependent Edema (DC) Add. Discharge Instructions: All discharge instructions reviewed with patient and/or family. Voiced understanding. Continue home medications as directed. Carefully manage her blood sugars. Follow-up with your DrJazlyn as scheduled. It is very important for you to seek local physician. Return for worse pain, fever, vomiting, weakness, breathing problems or other concerns as needed. Do not walk barefoot and carefully check your feet twice daily for wounds. JEIMY GUADALUPE MD Oct 26, 2016 23:12
[2016-10-27 00:27] LABS: BASOPHILS # (AUTO) 0.1 10^3/uL (0.0-0.1); BASOPHILS % (AUTO) 1 % (0-10); EOSINOPHILS # (AUTO) 0.3 10^3/uL (0.0-0.3); EOSINOPHILS % (AUTO) 4 % (0-10); LYMPHOCYTES % (AUTO) 46 % (12-44); MEAN CORPUSCULAR HEMOGLOBIN 24 PG (25-34); MEAN CORPUSCULAR HGB CONC 32 G/DL (32-36); MEAN CORPUSCULAR VOLUME 76 FL (80-99); MEAN PLATELET VOLUME 10.5 FL (7.4-10.4); MONOCYTES # (AUTO) 0.7 X 10^3 (0.0-1.0); MONOCYTES % (AUTO) 12 % (0-12); NEUTROPHILS # (AUTO) 2.3 X 10^3 (1.8-7.8); NEUTROPHILS % (AUTO) 37 % (42-75); PLATELET COUNT 463 10^3/uL (130-400); RED BLOOD COUNT 4.03 10^6/uL (4.35-5.85); RED CELL DISTRIBUTION WIDTH 15.1 % (10.0-14.5); WHITE BLOOD COUNT 6.4 10^3/uL (4.3-11.0)
[2016-10-27 00:40] LABS: ALBUMIN 2.6 G/DL (3.2-4.5); BILIRUBIN,TOTAL 0.1 MG/DL (0.1-1.0); CALCIUM 8.1 MG/DL (8.5-10.1); CREATININE SERUM 1.08 MG/DL (0.60-1.30); MAGNESIUM 1.7 MG/DL (1.8-2.4); POTASSIUM 5.6 MMOL/L (3.6-5.0); TOTAL PROTEIN 5.3 G/DL (6.4-8.2); hs C REACTIVE PROTEIN 0.22 MG/DL (0.00-0.50)
[2016-10-27 03:00] VITALS: BP 136/99
--- NOTE | 2016-10-27 08:14 | Diagnostic Imaging Report ---
INDICATION: Bilateral leg edema. Bilateral lower extremity venous Doppler study was performed in the routine fashion with color flow Doppler and waveform analysis. FINDINGS: The common femoral veins, superficial femoral veins, popliteal veins and visualized portion of the tibial veins show normal compressibility and venous flow patterns. There is normal augmentation. IMPRESSION: No evidence of deep vein thrombosis in the major veins of both legs. Dictated by: Dictated on workstation # [id number]
[2016-11-10] MEDS ORDERED: HYDR-3729 PO (09:10)
== END 2016-10-27 03:00 | disposition home or self-care (01) ==
LOC: EDUNIT# 22:56 → ER 22:57
DX: R60.0 Localized edema (principal); E11.9 Type 2 diabetes mellitus without complications; S91.102A Unspecified open wound of left great toe without damage to nail, initial encounter; S91.101A Unspecified open wound of right great toe without damage to nail, initial encounter; S91.104A Unspecified open wound of right lesser toe(s) without damage to nail, initial encounter; S91.105A Unspecified open wound of left lesser toe(s) without damage to nail, initial encounter; F17.210 Nicotine dependence, cigarettes, uncomplicated; Z96.41 Presence of insulin pump (external) (internal); X58.XXXA Exposure to other specified factors, initial encounter; Y99.8 Other external cause status
CPT/HCPCS: 36415; 80053; 82962; 83735; 83880; 85025; 85379; 86141; 93970; 99283

== ENCOUNTER → 2016-10-31 | Outpatient (CLI) | payer MEDICAID ==
[~2016-10-31] MED LIST changes: +HYDR-3729 PO; +HYDR-3812 PO; +INSU100I23 SQ; +INSU100I32 SQ; +INSU300I SQ; +NAPR500T3 PO; +PAMI30VI8 SQ; +SILV20CR14 TP; +SULF1TAB35 PO; +VANC1VIA IV
== END ==
LOC: PREOP 05:36
PROVIDERS: ATTEND Podiatrist
DX: Z01.818 Encounter for other preprocedural examination (principal); M86.9 Osteomyelitis, unspecified

== ENCOUNTER → 2016-11-01 | Day surgery (SDC) | payer MEDICAID, OTHER ==
[~2016-11-01] VITALS: Ht 170.2 cm; Wt 67.3 kg
[~2016-11-01] MED LIST changes: +BUPIVACAINE 0.5% 30 ML (SENSORCAINE) VIAL ONE
[2016-11-01 09:26] VITALS: BP 128/98
== END | disposition home or self-care (01) ==
LOC: SDC 07:39
PROVIDERS: ATTEND Podiatrist
DX: M86.9 Osteomyelitis, unspecified (principal); Z53.8 Procedure and treatment not carried out for other reasons
CPT/HCPCS: 82962

== ENCOUNTER 2016-11-04 18:37 | Emergency (ER) | payer MEDICAID, OTHER ==
[~2016-11-04] VITALS: Ht 170.2 cm; Wt 67.1 kg
[~2016-11-04 18:37] MED LIST changes: -BUPIVACAINE 0.5% 30 ML (SENSORCAINE) VIAL ONE; -HYDR-3729 PO; -HYDR-3812 PO; -INSU100I23 SQ; -INSU100I32 SQ; -INSU300I SQ; -NAPR500T3 PO; -PAMI30VI8 SQ; -SILV20CR14 TP; -SULF1TAB35 PO; -VANC1VIA IV
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
[2016-11-04] MEDS ORDERED: HYDROcodone/APAP 10 MG/325 MG (LORTAB) TAB PO STA (21:01)
[2016-11-04 21:28] VITALS: BP 125/73
[2016-11-10] MEDS ORDERED: HYDR-3729 PO (09:10)
== END 2016-11-04 21:28 | disposition home or self-care (01) ==
LOC: EDUNIT# 18:37 → ER 18:38
DX: M79.674 Pain in right toe(s) (principal); E11.9 Type 2 diabetes mellitus without complications; Z96.41 Presence of insulin pump (external) (internal); Z79.899 Other long term (current) drug therapy; Z87.39 Personal history of other diseases of the musculoskeletal system and connective tissue
CPT/HCPCS: 99283

== ENCOUNTER 2016-11-08 12:00 | Outpatient (CLI) | payer MEDICAID, OTHER ==
[~2016-11-08] VITALS: Ht 170.2 cm; Wt 67.3 kg
[2016-11-10] MEDS ORDERED: HYDR-3729 PO (09:10)
== END 2016-11-08 14:00 ==
LOC: PREOP 12:00
PROVIDERS: ATTEND Podiatrist
DX: Z01.818 Encounter for other preprocedural examination (principal); M86.671 Other chronic osteomyelitis, right ankle and foot

== ENCOUNTER 2016-11-10 06:04 | Day surgery (SDC) | payer MEDICAID, OTHER ==
[~2016-11-10] VITALS: Ht 170.2 cm; Wt 67.3 kg
[2016-11-10 06:30] VITALS: BP 115/84
[2016-11-10] MEDS ORDERED: LACTATED RINGERS 1,000 ML IV PRN (07:44)
[2016-11-10] MEDS ORDERED: MIDAZOLAM 2 MG/2 ML (VERSED) VIAL IV ONE (07:45)
[2016-11-10] MEDS ORDERED: BUPIVACAINE 0.5% 30 ML (SENSORCAINE) VIAL ONE (08:25)
[2016-11-10] MEDS ORDERED: MIDAZOLAM 2 MG/2 ML (VERSED) VIAL ONE (08:36)
[2016-11-10] MEDS ORDERED: fentaNYL INJECTION 100 MCG/2 ML AMP ONE (08:41)
[2016-11-10] MEDS ORDERED: LACTATED RINGERS 1,000 ML IV ONE (08:57)
[2016-11-10] MEDS ORDERED: ceFAZolin 1,000 MG (ANCEF) VIAL ONE (08:57)
[2016-11-10] MEDS ORDERED: proPOfol 200 MG/20 ML (DIPRIVAN) VIAL IV ONE (08:57)
[2016-11-10] MEDS ORDERED: LIDOCAINE PF 2% 10 ML (XYLOCAINE) AMP ONE (08:57)
[2016-11-10] MEDS ORDERED: SEVOFLURANE (ULTANE) 15 ML INHAL SOLN ONE ×2 (08:57)
[2016-11-10] MEDS ORDERED: ONDANSETRON 4 MG/2 ML (SDV) Z0FRAN ONE (08:57)
--- NOTE | 2016-11-10 09:07 | Discharge Inst-Surgical ---
ORION HUNTER DPM Nov 10, 2016 09:07
--- NOTE | 2016-11-10 09:07 | Progress Note-Post Operative ---
Post-Operative Progess Note Admission Liaison none Pre-Operative Diagnosis Osteomyelitis Right 2nd Toe Post-Operative Diagnosis same Post-Op Procedure Note Date of Procedure: Nov 10, 2016 Name of Procedure: Amputation Right 2nd Toe Anesthesia Type GA Estimated blood loss (mL): none ORION HUNTER DPM Nov 10, 2016 09:07
[2016-11-10] MEDS ORDERED: HYDR-3729 PO (09:10)
[2016-11-10] MEDS ORDERED: HYDROmorphone (DILAUDID) 2 MG/ML VIAL ONE (09:14)
[2016-11-10] MEDS ORDERED: MEPERIDINE (DEMEROL) INJ 50 MG/ML ONE (09:14)
[2016-11-10] MEDS ORDERED: ONDANSETRON 4 MG/2 ML (SDV) Z0FRAN IV ONE (09:30)
[2016-11-10] MEDS ORDERED: MEPERIDINE (DEMEROL) INJ 50 MG/ML IV PRN (09:30)
[2016-11-10] MEDS ORDERED: HYDROmorphone (DILAUDID) 2 MG/ML VIAL IV PRN (09:30)
[2016-11-10] MEDS ORDERED: fentaNYL INJECTION 100 MCG/2 ML AMP IV PRN (09:30)
[2016-11-10] MEDS ORDERED: morphine INJ 10 MG/ML 1ML (SYR OR VIAL) IV PRN (09:30)
[2016-11-10] MEDS ORDERED: ceFAZolin INJECTION 1,000 MG in NS (IVPB) 50 ML IVP SCH (09:30)
[2016-11-10 10:05] VITALS: BP 100/65
[2016-11-10 10:35] VITALS: BP 106/73
[2016-11-10] MEDS ORDERED: HYDROcodone/APAP 5 MG/325 MG (LORTAB) TAB PO ONE (10:45)
[2016-11-10] MEDS ORDERED: HYDROcodone/APAP 5 MG/325 MG (LORTAB) TAB ONE (10:52)
[2016-11-10 11:05] VITALS: BP 102/67
--- NOTE | 2016-11-30 09:11 | OPERATIVE REPORT ---
PROCEDURE PHYSICIAN: ORION HUNTER DATE OF PROCEDURE: 11/10/2016 SURGEON: Dr. Hunter DIESEL FITTER MECHANIC: None. PREOPERATIVE DIAGNOSIS: Osteomyelitis, right second toe. POSTOPERATIVE DIAGNOSIS: Osteomyelitis, right second toe. PROCEDURE PERFORMED: Amputation of right second toe with disarticulation at the metatarsophalangeal joint. ANESTHESIA: General anesthesia. HEMOSTASIS: Pneumatic ankle tourniquet at 250 mmHg. BLOOD LOSS: Minimal. MATERIALS USED: 3-0 nylon. INTRAOPERATIVE INJECTABLES: 10 mL of half percent Marcaine plain. COMPLICATIONS: None. INDICATIONS FOR THE PROCEDURE: The patient Ileana Glavin is a 31-year-old female who has osteomyelitis of her right second toe. She has exhausted all conservative measures at this time and is requiring surgical intervention. She has signed consent prior to being taken back to the OR. DESCRIPTION OF THE PROCEDURE: Under mild sedation, the patient was brought into the OR and placed on the operating table in the supine position. Following administration of general anesthesia, the right lower extremity was scrubbed, prepped and draped in an aseptic manner. Appropriate timeout was performed. The right lower extremity was identified as the surgical site. Next, 2 semi-elliptical incisions were made over the area of the second toe at the base of a second toe. The incisions were deepened down to the level of the metatarsophalangeal joint. The metatarsophalangeal joint was disarticulated and the toe was passed from the surgical field. The wound was flushed with copious amounts sterile saline. The skin was reapproximated and closed with 3-0 nylon. 10 mL of half percent Marcaine plain were injected in the foot and the foot was dressed with dry sterile dressing consisting of 4 x 4's, web roll, and Ted wrap. The patient tolerated the procedure and anesthesia well. She was transferred from OR to recovery with vital signs stable, neurovascular status intact to the right lower extremity. Job ID: [id number] Dictated Date: 11/29/2016 16:42:07 Panelbeater Date: 11/30/2016 09:05:21 / taylor
== END 2016-11-10 11:27 | disposition home or self-care (01) ==
LOC: SDC 06:04
PROVIDERS: ATTEND Podiatrist
DX: M86.9 Osteomyelitis, unspecified (principal)
CPT/HCPCS: 80306; 82962; 84703; 87081

== ENCOUNTER 2016-11-12 15:25 | Emergency (ER) | payer MEDICAID, OTHER ==
[~2016-11-12] VITALS: Ht 170.2 cm; Wt 68.0 kg
[~2016-11-12 15:25] MED LIST changes: +HYDR-3729 PO
[2016-11-12] MEDS ORDERED: DEXTROSE 50% 50 ML (IMS) SYR ONE (15:27)
--- NOTE | 2016-11-12 15:35 | ED General ---
General Stated Complaint: LOW BLOOD SUGAR Source of Information: Patient Exam Limitations: No Limitations History of Present Illness Time Seen by Provider: 15:33 Initial Comments To ER per EMS from the [facility] with reports of hypoglycemia. Sugar was found to be 30 though she was alert she was given oral glucose. Upon arrival to the emergency room EMS found her sugar to be 23. Patient still remained alert. I started an IV and found sugar to be 60. She was given one half amp of D50. She has multiple admissions here recently for diabetic ketoacidosis and osteomyelitis of the right foot with a second toe amputation in October of this year. She is a known diabetic and has an insulin pump which was disconnected upon arrival to ER Timing/Duration: 1-2 Days Severity: Moderate Allergies and Home Medications Allergies Coded Allergies: No Known Drug Allergies (Unverified , 10/22/16) Home Medications Buspirone HCl 15 Mg Tablet 30 MG PO TID (Reported) LAST FILLED #168 09-11-16 TAKES 2 (15MG) TABLETS Gabapentin 800 Mg Tablet 800 MG PO TID (Reported) Hydrocodone/Acetaminophen 1 Each Tablet #20 1 EACH PO Q4H PRN PRN PAIN Prescribed by: ORION HUNTER on 11/10/16 0910 Hydroxyzine Pamoate 50 Mg Capsule 50 MG PO TID (Reported) Insulin Lispro 100 Unit/1 Ml Vial SQ PER INSULIN PUMP (Reported) Naproxen 500 Mg Tablet 500 MG PO BID (Reported) Paroxetine HCl 20 Mg Tablet #30 20 MG PO DAILY Prescribed by: MENA TONEY on 10/25/16 1454 Constitutional: see HPI EENTM: see HPI Respiratory: no symptoms reported Cardiovascular: no symptoms reported Genitourinary: no symptoms reported Musculoskeletal: no symptoms reported Skin: no symptoms reported Psychiatric/Neurological: No Symptoms Reported Hematologic/Lymphatic: No Symptoms Reported Past Pyemtjw-Pprqqn-Cpizeh Hx Patient Social History Type Used: Cigarettes Recent Hopitalizations: No Immunizations Up To Date Tetanus Booster (TDap): Unknown PED Vaccines UTD: No Date of Influenza Vaccine: Jul 03, 2016 Seasonal Allergies Seasonal Allergies: No Surgeries HX Surgeries: Yes (OPEN HEART SX AN ) Surgeries: Cardiac, Section Respiratory Hx Respiratory Disorders: No Cardiovascular Hx Cardiac Disorders: Yes (CARDIAC SURGERY AN ) Neurological Hx Neurological Disorders: Yes Neurological Disorders: Neuropathy Genitourinary Hx Genitourinary Disorders: No Gastrointestinal Hx Gastrointestinal Disorders: Yes (CELIAC DISEASE) Musculoskeletal Hx Musculoskeletal Disorders: Yes (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) Endocrine Hx Endocrine Disorders: Yes (PT HAS INSULIN PUMP) Endocrine Disorders: Diabetes, Insulin dep HEENT HX ENT Disorders: No Loss of Vision: Denies Hearing Impairment: Denies Cancer Hx Cancer: No Psychosocial Hx Psychiatric Problems: Yes Behavioral Health Disorders: Anxiety Integumentary HX Skin/Integumentary Disorder: No Blood Transfusions Hx Blood Disorders: Yes (HEP C+) Family Medical History Significant Family History: No Pertinent Family Hx Physical Exam Vital Signs Vital Sign - Last 12Hours 11/12/16 11/12/16 15:25 17:20 Temp 98.0 Pulse 100 Resp 16 B/P 166/132 Pulse Ox 100 O2 Delivery Room Air Capillary Refill : General Appearance: No Apparent Distress WD/WN Chronically ill Other ( multiple track novak on both arms, bruises on both arms, cut novak that are old and healed to both arms. Bandage over the right foot.) HEENT: PERRL/EOMI TMs Normal Neck: Full Range of Motion Normal Inspection Respiratory: No Accessory Muscle Use No Respiratory Distress Cardiovascular: Regular Rate, Rhythm Normal Peripheral Pulses Gastrointestinal: Non Tender Soft Extremity: Normal Range of Motion No Pedal Edema Neurologic/Psychiatric: Alert Oriented x3 No Motor/Sensory Deficits Progress/Results/Core Measures Results/Orders Lab Results Laboratory Tests Test 11/12/16 15:30 11/12/16 15:40 11/12/16 16:02 11/12/16 16:03 Range/Units Glucometer 60 *L 206 H 70-110 MG/DL Ur Tricyclic Antidepressants Screen NEGATIVE NEGATIVE Urine Amphetamines Screen NEGATIVE NEGATIVE Urine Bacteria NEGATIVE /HPF Urine Barbiturates Screen NEGATIVE NEGATIVE Urine Benzodiazepines Screen NEGATIVE NEGATIVE Urine Bilirubin NEGATIVE NEGATIVE Urine Cannabinoids Screen NEGATIVE NEGATIVE Urine Casts NONE /LPF Urine Clarity CLEAR Urine Cocaine Screen NEGATIVE NEGATIVE Urine Color YELLOW Urine Crystals NONE /LPF Urine Culture Indicated NO Urine Glucose (UA) NEGATIVE NEGATIVE Urine Ketones NEGATIVE NEGATIVE Urine Leukocyte Esterase NEGATIVE NEGATIVE Urine Methadone Screen NEGATIVE NEGATIVE Urine Methamphetamines Screen NEGATIVE NEGATIVE Urine Mucus NEGATIVE /LPF Urine Nitrite NEGATIVE NEGATIVE Urine Opiates Screen POSITIVE H NEGATIVE Urine Oxycodone Screen NEGATIVE NEGATIVE Urine Phencyclidine Screen NEGATIVE NEGATIVE Urine Propoxyphene Screen NEGATIVE NEGATIVE Urine Protein NEGATIVE NEGATIVE Urine RBC NONE /HPF Urine RBC (Auto) NEGATIVE NEGATIVE Urine Specific [place] 1.020 1.016-1.022 Urine Squamous Epithelial Cells 10-25 H /HPF Urine Urobilinogen NORMAL NORMAL MG/DL Urine WBC RARE /HPF Urine pH 5 5-9 Alanine Aminotransferase (ALT/SGPT) 34 0-55 U/L Albumin 3.8 3.2-4.5 G/DL Alkaline Phosphatase 178 H 40-136 U/L Anion Gap 11 5-14 MMOL/L Aspartate Amino Transf (AST/SGOT) 30 5-34 U/L BUN/Creatinine Ratio 18 Basophils # (Auto) 0.1 0.0-0.1 10^3/uL Basophils (%) (Auto) 1 0-10 % Blood Urea Nitrogen 18 7-18 MG/DL Calcium Level 9.2 8.5-10.1 MG/DL Carbon Dioxide Level 18 L 21-32 MMOL/L Chloride Level 111 H 98-107 MMOL/L Creatinine 1.02 0.60-1.30 MG/DL Eosinophils # (Auto) 0.2 0.0-0.3 10^3/uL Eosinophils (%) (Auto) 2 0-10 % Estimat Glomerular Filtration Rate > 60 Glucose Level 197 H 70-105 MG/DL Hematocrit 37 35-52 % Hemoglobin 11.7 11.5-16.0 G/DL Lymphocytes # (Auto) 1.8 1.0-4.0 X 10^3 Lymphocytes (%) (Auto) 19 12-44 % Mean Corpuscular Hemoglobin 24 L 25-34 PG Mean Corpuscular Hemoglobin Concent 32 32-36 G/DL Mean Corpuscular Volume 75 L 80-99 FL Mean Platelet Volume 10.8 H 7.4-10.4 FL Monocytes # (Auto) 0.5 0.0-1.0 X 10^3 Monocytes (%) (Auto) 6 0-12 % Neutrophils # (Auto) 7.0 1.8-7.8 X 10^3 Neutrophils (%) (Auto) 74 42-75 % Platelet Count 361 130-400 10^3/uL Potassium Level 5.2 H 3.6-5.0 MMOL/L Red Blood Count 4.89 4.35-5.85 10^6/uL Red Cell Distribution Width 14.9 H 10.0-14.5 % Serum Alcohol < 10 <10 MG/DL Sodium Level 140 135-145 MMOL/L Total Bilirubin 0.1 0.1-1.0 MG/DL Total Protein 7.5 6.4-8.2 G/DL White Blood Count 9.5 4.3-11.0 10^3/uL Test 11/12/16 17:14 Range/Units Glucometer 290 H 70-110 MG/DL My Orders Orders-LATOYA CHRISTIANSEN APRN Cbc With Automated Diff (11/12/16 15:35) Comprehensive Metabolic Panel (11/12/16 15:35) Urine Bedside (11/12/16 15:35) Drug Screen Stat (Urine) (11/12/16 15:35) Saline Lock/Iv-Start (11/12/16 15:35) D50w (Emergency) Syringe (Dextrose 50% 5 (11/12/16 15:45) Alcohol (11/12/16 15:35) General/Regular (11/12/16 Lunch) Accucheck Stat ONCE (11/12/16 15:51) Ua Culture If Indicated (11/12/16 16:00) Hydrocodone/Apap 5/325 Tablet (Lortab 5 (11/12/16 16:30) Medications Given in ED Current Medications Medications Dose Ordered Sig/Dipti Route Start Time Stop Time Status Last Admin Dose Admin Acetaminophen/ Hydrocodone Bitart 1 tab ONCE ONCE PO 11/12/16 16:30 11/12/16 16:31 DC 11/12/16 16:35 1 TAB Dextrose 25 ml ONCE ONCE IV 11/12/16 15:45 11/12/16 15:46 DC 11/12/16 15:35 25 ML Vital Signs/I&O Vital Sign - Last 12Hours 11/12/16 11/12/16 15:25 17:20 Temp 98.0 Pulse 100 103 Resp 16 B/P 166/132 Pulse Ox 100 97 O2 Delivery Room Air Departure Impression Impression: Primary Impression: Hypoglycemic reaction to insulin Disposition: HOME, SELF-CARE Condition: Improved Departure-Patient Inst. Decision time for Depature: 16:35 Referrals: NO,LOCAL PHYSICIAN (PCP/Family) Primary Care Physician Patient Instructions: NO INSTRUCTIONS GIVEN Add. Discharge Instructions: 1. You should reattach her insulin pump and continue with the current rate and dosage. Check your blood sugars frequently and you may reduce your dosage of insulin/rate if your blood sugar is low. LATOYA CHRISTIANSEN APRN Nov 12, 2016 15:35
[2016-11-12] MEDS ORDERED: DEXTROSE 50% 50 ML (IMS) SYR IV ONE (15:45)
[2016-11-12 16:04] LABS: BILIRUBIN,URINE NEGATIVE (NEGATIVE); KETONES,URINE NEGATIVE (NEGATIVE); LEUKOCYTE ESTERASE ,URINE NEGATIVE (NEGATIVE); NITRITE,URINE NEGATIVE (NEGATIVE); PH,URINE 5 (5-9); PROTEIN,URINE NEGATIVE (NEGATIVE); UROBILINOGEN,URINE NORMAL (NORMAL)
[2016-11-12 16:09] LABS: BASOPHILS # (AUTO) 0.1 10^3/uL (0.0-0.1); BASOPHILS % (AUTO) 1 % (0-10); EOSINOPHILS # (AUTO) 0.2 10^3/uL (0.0-0.3); EOSINOPHILS % (AUTO) 2 % (0-10); LYMPHOCYTES # (AUTO) 1.8 X 10^3 (1.0-4.0); LYMPHOCYTES % (AUTO) 19 % (12-44); MEAN CORPUSCULAR HEMOGLOBIN 24 PG (25-34); MEAN CORPUSCULAR HGB CONC 32 G/DL (32-36); MEAN CORPUSCULAR VOLUME 75 FL (80-99); MEAN PLATELET VOLUME 10.8 FL (7.4-10.4); MONOCYTES # (AUTO) 0.5 X 10^3 (0.0-1.0); MONOCYTES % (AUTO) 6 % (0-12); NEUTROPHILS % (AUTO) 74 % (42-75); PLATELET COUNT 361 10^3/uL (130-400); RED BLOOD COUNT 4.89 10^6/uL (4.35-5.85); RED CELL DISTRIBUTION WIDTH 14.9 % (10.0-14.5); WHITE BLOOD COUNT 9.5 10^3/uL (4.3-11.0)
[2016-11-12 16:29] LABS: WBC,URINE RARE /HPF
[2016-11-12] MEDS ORDERED: HYDROcodone/APAP 5 MG/325 MG (LORTAB) TAB PO ONE (16:30)
[2016-11-12 16:31] LABS: ALANINE AMINOTRANSFERASE 34 U/L (0-55); ALBUMIN 3.8 G/DL (3.2-4.5); ANION GAP 11 MMOL/L (5-14); ASPARTATE AMINO TRANSFERASE 30 U/L (5-34); BILIRUBIN,TOTAL 0.1 MG/DL (0.1-1.0); BLOOD UREA NITROGEN 18 MG/DL (7-18); BUN/CREATININE RATIO 18; CALCIUM 9.2 MG/DL (8.5-10.1); CARBON DIOXIDE 18 MMOL/L (21-32); CHLORIDE 111 MMOL/L (98-107); CREATININE SERUM 1.02 MG/DL (0.60-1.30); GFR ESTIMATED > 60; GLUCOSE 197 MG/DL (70-105); POTASSIUM 5.2 MMOL/L (3.6-5.0); SODIUM 140 MMOL/L (135-145); TOTAL PROTEIN 7.5 G/DL (6.4-8.2)
[2016-11-12 16:33] LABS: ALCOHOL < 10 MG/DL (<10)
[2016-11-12 17:20] VITALS: BP 137/89
== END 2016-11-12 17:20 | disposition home or self-care (01) ==
LOC: EDUNIT# 15:25 → ER 15:26
DX: E11.649 Type 2 diabetes mellitus with hypoglycemia without coma (principal); Z96.41 Presence of insulin pump (external) (internal)
CPT/HCPCS: 36415; 80053; 80306; 80320; 81000; 82962; 84703; 85025; 96374

== ENCOUNTER 2016-11-19 18:43 | Emergency (ER) | payer MEDICAID, OTHER ==
[~2016-11-19] VITALS: Ht 167.6 cm; Wt 65.8 kg
[2016-11-19] MEDS ORDERED: DEXTROSE 50% 50 ML (IMS) SYR ONE (18:44)
[2016-11-19 18:53] LABS: BASOPHILS # (AUTO) 0.1 10^3/uL (0.0-0.1); BASOPHILS % (AUTO) 1 % (0-10); EOSINOPHILS # (AUTO) 0.6 10^3/uL (0.0-0.3); EOSINOPHILS % (AUTO) 7 % (0-10); LYMPHOCYTES # (AUTO) 3.7 X 10^3 (1.0-4.0); LYMPHOCYTES % (AUTO) 42 % (12-44); MEAN CORPUSCULAR HEMOGLOBIN 24 PG (25-34); MEAN CORPUSCULAR HGB CONC 32 G/DL (32-36); MEAN CORPUSCULAR VOLUME 76 FL (80-99); MEAN PLATELET VOLUME 10.5 FL (7.4-10.4); MONOCYTES # (AUTO) 0.9 X 10^3 (0.0-1.0); MONOCYTES % (AUTO) 10 % (0-12); NEUTROPHILS # (AUTO) 3.7 X 10^3 (1.8-7.8); NEUTROPHILS % (AUTO) 41 % (42-75); PLATELET COUNT 356 10^3/uL (130-400); RED BLOOD COUNT 4.03 10^6/uL (4.35-5.85); RED CELL DISTRIBUTION WIDTH 15.1 % (10.0-14.5); WHITE BLOOD COUNT 8.9 10^3/uL (4.3-11.0)
[2016-11-19] MEDS ORDERED: D5 NS 1000 ML IV SOLUTION 1,000 ML IV ONE (19:00)
[2016-11-19] MEDS ORDERED: DEXTROSE 50% 50 ML (IMS) SYR IV ONE (19:00)
[2016-11-19 19:21] LABS: ALANINE AMINOTRANSFERASE 37 U/L (0-55); ALBUMIN 3.4 G/DL (3.2-4.5); ANION GAP 9 MMOL/L (5-14); ASPARTATE AMINO TRANSFERASE 35 U/L (5-34); BILIRUBIN,TOTAL 0.1 MG/DL (0.1-1.0); BLOOD UREA NITROGEN 18 MG/DL (7-18); BUN/CREATININE RATIO 21; CALCIUM 8.7 MG/DL (8.5-10.1); CARBON DIOXIDE 18 MMOL/L (21-32); CHLORIDE 113 MMOL/L (98-107); CREATININE SERUM 0.86 MG/DL (0.60-1.30); GFR ESTIMATED > 60; MAGNESIUM 1.5 MG/DL (1.8-2.4); POTASSIUM 4.1 MMOL/L (3.6-5.0); SALICYLATE < 5.0 MG/DL (5.0-20.0); SODIUM 140 MMOL/L (135-145); TOTAL PROTEIN 6.5 G/DL (6.4-8.2)
[2016-11-19 19:33] LABS: ACETAMINOPHEN < 10 UG/ML (10-30); ALCOHOL < 10 MG/DL (<10); GLUCOSE 29 MG/DL (70-105)
--- NOTE | 2016-11-19 19:42 | Diagnostic Imaging Report ---
EXAMINATION: Portable chest. INDICATION: Shortness of breath. COMPARISON: Prior study from October 23, 2016. FINDINGS: Some interstitial changes are present within the lungs which are not significantly changed from the prior examination. Linear regions of density adjacent to the mauricio, bilaterally, suggest regions of scarring or discoid atelectasis. There is no focal alveolar consolidation. There is no effusion. There is no pneumothorax. Heart size and mediastinal contours appear appropriate. Prominent vascularity appears within normal limits. IMPRESSION: While this is a young patient, there do appear to be interstitial changes within the lungs. Correlation as to smoking history or history of interstitial lung disease appreciated. There has not been significant interval change when compared to the prior examination. No acute cardiopulmonary process is evident. Dictated by: Dictated on workstation # [id number]
--- NOTE | 2016-11-19 19:49 | ED General ---
General Chief Complaint: Glucose Problems Stated Complaint: UNRESPONSIVE Nursing Triage Note: PT HERE VIA EMS WITH REPORTS OF LOW BLOOD SUGAR AND UNRESPONSIVE. Nursing Sepsis Screen: No Definite Risk Source of Information: Patient Exam Limitations: No Limitations History of Present Illness Time Seen by Provider: 18:43 Initial Comments This 31-year-old woman presents to the emergency room via EMS after being found unresponsive in the [facility] where she is [facility]. She is a type I diabetic with an insulin pump. Companions who arrived a short time later report she had extremely high blood sugars early in the morning. She then bolused herself and did not eat the remainder of the day. She is going through significant psychosocial stressors including the suicide of a boyfriend yesterday and recovery from substance abuse. Those who are with her at that time attempted to give her sugar but patient was not awake enough to consume it. EMS attempted to clear the oropharynx. She was suctioned during initial assessment. Vital signs were stable upon arrival. Patient was unresponsive. Insulin pump was removed. Fingerstick blood sugar was "low" for EMS. It was 33 on arrival. Patient has had recent surgery for osteomyelitis of the toes without complication. Allergies and Home Medications Allergies Coded Allergies: No Known Drug Allergies (Unverified , 10/22/16) Home Medications Buspirone HCl 15 Mg Tablet 30 MG PO TID (Reported) LAST FILLED #168 09-11-16 TAKES 2 (15MG) TABLETS Gabapentin 800 Mg Tablet 800 MG PO TID (Reported) Hydrocodone/Acetaminophen 1 Each Tablet #20 1 EACH PO Q4H PRN PRN PAIN Prescribed by: ORION HUNTER on 11/10/16 0910 Hydroxyzine Pamoate 50 Mg Capsule 50 MG PO TID (Reported) Insulin Lispro 100 Unit/1 Ml Vial SQ PER INSULIN PUMP (Reported) Naproxen 500 Mg Tablet 500 MG PO BID (Reported) Paroxetine HCl 20 Mg Tablet #30 20 MG PO DAILY Prescribed by: MENA TONEY on 10/25/16 2704 Constitutional: see HPI EENTM: no symptoms reported Respiratory: see HPI Cardiovascular: no symptoms reported Gastrointestinal: diarrhea Genitourinary: no symptoms reported Musculoskeletal: see HPI Skin: no symptoms reported Psychiatric/Neurological: See HPI Past Maqjmji-Zwtjaa-Qmabsz Hx Patient Social History Type Used: Cigarettes Recent Foreign Travel: No Contact w/Someone Who Travel: No Recent Infectious Disease Expo: No Recent Hopitalizations: No Immunizations Up To Date Tetanus Booster (TDap): Unknown PED Vaccines UTD: No Date of Influenza Vaccine: Jul 03, 2016 Seasonal Allergies Seasonal Allergies: No Surgeries HX Surgeries: Yes (OPEN HEART SX AN ) Surgeries: Cardiac, Section, Orthopedic Respiratory Hx Respiratory Disorders: No Cardiovascular Hx Cardiac Disorders: Yes (CARDIAC SURGERY AN INFANT) Neurological Hx Neurological Disorders: Yes Neurological Disorders: Neuropathy, Seizure Disorder Genitourinary Hx Genitourinary Disorders: No Gastrointestinal Hx Gastrointestinal Disorders: Yes (CELIAC DISEASE) Musculoskeletal Hx Musculoskeletal Disorders: Yes (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) Endocrine Hx Endocrine Disorders: Yes (PT HAS INSULIN PUMP) Endocrine Disorders: Diabetes, Insulin dep HEENT HX ENT Disorders: No Loss of Vision: Denies Hearing Impairment: Denies Cancer Hx Cancer: No Psychosocial Hx Psychiatric Problems: Yes Behavioral Health Disorders: Anxiety Integumentary HX Skin/Integumentary Disorder: No Blood Transfusions Hx Blood Disorders: Yes (HEP C+) Family Medical History Significant Family History: No Pertinent Family Hx Physical Exam Vital Signs Vital Sign - Last 12Hours 11/19/16 11/19/16 18:43 18:50 Temp 97.8 Pulse 73 Resp 18 B/P 140/98 Pulse Ox 98 O2 Delivery Nonrebreather O2 Flow Rate 10 Capillary Refill : Less Than 3 Seconds General Appearance: WD/WN Other (Unresponsive) HEENT: PERRL/EOMI Normal ENT Inspection Neck: Normal Inspection Respiratory: Lungs Clear Normal Breath Sounds No Accessory Muscle Use No Respiratory Distress Cardiovascular: Regular Rate, Rhythm No Edema No Murmur Gastrointestinal: Normal Bowel Sounds SoftNo Distended Extremity: No Pedal Edema Neurologic/Psychiatric: Other (Unresponsive) Skin: Normal Color Warm/Dry Focused Exam Lactic Acid Level Progress/Results/Core Measures Results/Orders Lab Results Laboratory Tests Test 11/19/16 18:45 11/19/16 18:48 11/19/16 19:06 11/19/16 20:19 Range/Units Acetaminophen Level < 10 L 10-30 UG/ML Alanine Aminotransferase (ALT/SGPT) 37 0-55 U/L Albumin 3.4 3.2-4.5 G/DL Alkaline Phosphatase 152 H 40-136 U/L Anion Gap 9 5-14 MMOL/L Aspartate Amino Transf (AST/SGOT) 35 H 5-34 U/L BUN/Creatinine Ratio 21 Basophils # (Auto) 0.1 0.0-0.1 10^3/uL Basophils (%) (Auto) 1 0-10 % Blood Urea Nitrogen 18 7-18 MG/DL Calcium Level 8.7 8.5-10.1 MG/DL Carbon Dioxide Level 18 L 21-32 MMOL/L Chloride Level 113 H 98-107 MMOL/L Creatinine 0.86 0.60-1.30 MG/DL Eosinophils # (Auto) 0.6 H 0.0-0.3 10^3/uL Eosinophils (%) (Auto) 7 0-10 % Estimat Glomerular Filtration Rate > 60 Glucose Level 29 *L 70-105 MG/DL Hematocrit 31 L 35-52 % Hemoglobin 9.6 L 11.5-16.0 G/DL Lymphocytes # (Auto) 3.7 1.0-4.0 X 10^3 Lymphocytes (%) (Auto) 42 12-44 % Magnesium Level 1.5 L 1.8-2.4 MG/DL Mean Corpuscular Hemoglobin 24 L 25-34 PG Mean Corpuscular Hemoglobin Concent 32 32-36 G/DL Mean Corpuscular Volume 76 L 80-99 FL Mean Platelet Volume 10.5 H 7.4-10.4 FL Monocytes # (Auto) 0.9 0.0-1.0 X 10^3 Monocytes (%) (Auto) 10 0-12 % Neutrophils # (Auto) 3.7 1.8-7.8 X 10^3 Neutrophils (%) (Auto) 41 L 42-75 % Platelet Count 356 130-400 10^3/uL Potassium Level 4.1 3.6-5.0 MMOL/L Red Blood Count 4.03 L 4.35-5.85 10^6/uL Red Cell Distribution Width 15.1 H 10.0-14.5 % Salicylates Level < 5.0 L 5.0-20.0 MG/DL Serum Alcohol < 10 <10 MG/DL Serum Test, Qualitative NEGATIVE NEGATIVE Sodium Level 140 135-145 MMOL/L Total Bilirubin 0.1 0.1-1.0 MG/DL Total Protein 6.5 6.4-8.2 G/DL White Blood Count 8.9 4.3-11.0 10^3/uL Glucometer 33 *L 234 H 351 H 70-110 MG/DL Test 11/19/16 20:38 Range/Units Ur Tricyclic Antidepressants Screen NEGATIVE NEGATIVE Urine Amphetamines Screen NEGATIVE NEGATIVE Urine Bacteria TRACE /HPF Urine Barbiturates Screen NEGATIVE NEGATIVE Urine Benzodiazepines Screen POSITIVE H NEGATIVE Urine Bilirubin NEGATIVE NEGATIVE Urine Cannabinoids Screen NEGATIVE NEGATIVE Urine Casts NONE /LPF Urine Clarity CLEAR Urine Cocaine Screen NEGATIVE NEGATIVE Urine Color YELLOW Urine Crystals NONE /LPF Urine Culture Indicated NO Urine Glucose (UA) 4+ H NEGATIVE Urine Ketones NEGATIVE NEGATIVE Urine Leukocyte Esterase NEGATIVE NEGATIVE Urine Methadone Screen NEGATIVE NEGATIVE Urine Methamphetamines Screen NEGATIVE NEGATIVE Urine Mucus NEGATIVE /LPF Urine Nitrite NEGATIVE NEGATIVE Urine Opiates Screen NEGATIVE NEGATIVE Urine Oxycodone Screen NEGATIVE NEGATIVE Urine Phencyclidine Screen NEGATIVE NEGATIVE Urine Propoxyphene Screen NEGATIVE NEGATIVE Urine Protein 1+ H NEGATIVE Urine RBC NONE /HPF Urine RBC (Auto) NEGATIVE NEGATIVE Urine Specific Dixon 1.010 L 1.016-1.022 Urine Squamous Epithelial Cells 5-10 /HPF Urine Urobilinogen NORMAL NORMAL MG/DL Urine WBC NONE /HPF Urine pH 6 5-9 My Orders Orders-CHAUNCEY ALCANTARA MD Acetaminophen (11/19/16 18:46) Alcohol (11/19/16 18:46) Cbc With Automated Diff (11/19/16 18:46) Comprehensive Metabolic Panel (11/19/16 18:46) Drug Screen Stat (Urine) (11/19/16 18:46) Hcg,Qualitative Serum (11/19/16 18:46) Magnesium (11/19/16 18:46) Salicylate (11/19/16 18:46) Ua Culture If Indicated (11/19/16 18:46) Accucheck Stat ONCE (11/19/16 18:46) Saline Lock/Iv-Start (11/19/16 18:46) O2 (11/19/16 18:46) Monitor-Rhythm Ecg Trace Only (11/19/16 18:46) Chest 1 View, Ap/Pa Only (11/19/16 18:46) D50w (Emergency) Syringe (Dextrose 50% 5 (11/19/16 19:00) D5 Ns 1000 Ml Iv Solution (Dextrose 5%/0 (11/19/16 19:00) Magnesium Oxide Tablet (Mag Ox Tablet) (11/19/16 19:45) Accucheck Stat ONCE (11/19/16 19:54) Ketorolac Injection (Toradol Injection) (11/19/16 20:45) Medications Given in ED Vital Signs/I&O Blood Pressure Mean: 112 Point of Care Testing Finger Stick Blood Glucose: 234 Blood Glucose Action Taken: DR NOTIFIED Progress Note : Progress Note IV was rapidly established. Patient was bolused with D50. She rapidly became alert and oriented. Her companions were concerned about her overall well-being inability to care for herself. She reportedly made some comments about desiring earlier in the day. I address this directly with the patient who adamantly denies any suicidal ideation. I contacted Dr. Maurice regarding follow-up. She was to place a note in the patient's chart at the clinic to ensure someone contacts her tomorrow. A engineering instructor also contacted Tamar Westbrook at [facility] who plans to see the patient tomorrow for assistance with diabetes management. Patient was about to be discharged when she abruptly became very agitated, removed her own EJ IV, and burst out of the emergency room. Her companions who were giving her a ride home received her discharge papers. Patient had received IV fluids, Toradol for her postoperative pain, and magnesium supplementation prior to dismissal. Diagnostic Imaging Diagonstic Imaging: Xray Plain Films/CT/US/NM/MRI: chest Comments Chest x-ray viewed by me and report reviewed. See report below: NAME: HUONG ARANGO [facility] REC#: [id number] PT STATUS: REG ER : 1985 PHYSICIAN: CHAUNCEY ALCANTARA MD ADMIT DATE: 11/19/16/ER Draft Date of Exam:11/19/16 CHEST 1 VIEW, AP/PA ONLY EXAMINATION: Portable chest. INDICATION: Shortness of breath. COMPARISON: Prior study from October 23, 2016. FINDINGS: Some interstitial changes are present within the lungs which are not significantly changed from the prior examination. Linear regions of density adjacent to the mauricio, bilaterally, suggest regions of scarring or discoid atelectasis. There is no focal alveolar consolidation. There is no effusion. There is no pneumothorax. Heart size and mediastinal contours appear appropriate. Prominent vascularity appears within normal limits. IMPRESSION: While this is a young patient, there do appear to be interstitial changes within the lungs. Correlation as to smoking history or history of interstitial lung disease appreciated. There has not been significant interval change when compared to the prior examination. No acute cardiopulmonary process is evident. Dictated on workstation # [id number] Dict: 11/19/161935 Trans: 11/19/161940 [facility] [id number] Interpreted by: WENDY JOHNSTON MD Departure Impression Impression: Primary Impression: Hypoglycemia associated with diabetes Additional Impressions: Altered mental status Qualified Code: R41.82 - Altered mental status, unspecified Hypomagnesemia Postoperative pain Disposition: HOME, SELF-CARE Condition: Improved Departure-Patient Inst. Decision time for Depature: 20:42 Referrals: NO,LOCAL PHYSICIAN (PCP/Family) Primary Care Physician Patient Instructions: Diabetes Type 1, Adult (DC) Add. Discharge Instructions: Continue use of your insulin pump and other medications as prescribed. Follow-up with Tamar Westbrook at [facility] tomorrow morning. Please check your blood sugar upon returning home and again at midnight and at 2 or 3 a.m. Then check your blood sugars fasting and 2 hours after each meal unless otherwise instructed by Tamar. Return to the emergency room as needed. All discharge instructions reviewed with patient and/or family. Voiced understanding. Copy Copies To 1: DESIRAE MAURICE MD, JOSHUA T MD Nov 19, 2016 19:49 Dextrose 50 ml 50 ml ONCE ONCE IV 11/19/16 19:00 11/19/16 19:01 DC 11/19/16 18:43 50 ML Dextrose/Sodium Chloride 1,000 ml @ 0 mls/hr Q0M ONCE IV 11/19/16 19:00 11/19/16 19:01 DC 11/19/16 19:02 0 MLS/HR Ketorolac Tromethamine 30 mg ONCE ONCE IVP 11/19/16 20:45 11/19/16 20:46 DC 11/19/16 20:49 30 MG Magnesium Oxide 400 mg ONCE ONCE PO 11/19/16 19:45 11/19/16 19:46 DC 11/19/16 21:38 400 MG Vital Signs/I&O Vital Sign - Last 12Hours 11/19/16 11/19/16 18:43 18:50 Temp 97.8 Pulse 73 Resp 18 B/P 140/98 Pulse Ox 98 O2 Delivery Nonrebreather Nasal Cannula O2 Flow Rate 10 2 Blood Pressure Mean: 112 Point of Care Testing Finger Stick Blood Glucose: 234 Blood Glucose Action Taken: NOTIFIED Diagnostic Imaging Diagonstic Imaging: Xray Plain Films/CT/US/NM/MRI: chest Comments Chest x-ray viewed by me and report reviewed. See report below: NAME: HUONG ARANGO REC#: [id number] PT STATUS: REG ER : 1985 PHYSICIAN: CHAUNCEY ALCANTARA MD ADMIT DATE: 11/19/16/ER Draft Date of Exam:11/19/16 CHEST 1 VIEW, AP/PA ONLY EXAMINATION: Portable chest. INDICATION: Shortness of breath. COMPARISON: Prior study from October 23, 2016. FINDINGS: Some interstitial changes are present within the lungs which are not significantly changed from the prior examination. Linear regions of density adjacent to the mauricio, bilaterally, suggest regions of scarring or discoid atelectasis. There is no focal alveolar consolidation. There is no effusion. There is no pneumothorax. Heart size and mediastinal contours appear appropriate. Prominent vascularity appears within normal limits. IMPRESSION: While this is a young patient, there do appear to be interstitial changes within the lungs. Correlation as to smoking history or history of interstitial lung disease appreciated. There has not been significant interval change when compared to the prior examination. No acute cardiopulmonary process is evident. Dictated on workstation # [id number] Dict: 11/19/161935 Trans: 11/19/161940 [facility] [id number] Interpreted by: WENDY JOHNSTON MD Departure Impression Impression: Primary Impression: Hypoglycemia associated with diabetes Additional Impressions: Altered mental status Qualified Code: R41.82 - Altered mental status, unspecified Hypomagnesemia Postoperative pain Disposition: 01 HOME, SELF-CARE Condition: Improved Departure-Patient Inst. Decision time for Depature: 20:42 Referrals: NO,LOCAL PHYSICIAN (PCP/Family) Primary Care Physician Patient Instructions: Diabetes Type 1, Adult (DC) Add. Discharge Instructions: Continue use of your insulin pump and other medications as prescribed. Follow-up with Tamar Westbrook at [facility] tomorrow morning. Please check your blood sugar upon returning home and again at midnight and at 2 or 3 a.m. Then check your blood sugars fasting and 2 hours after each meal unless otherwise instructed by Tamar. Return to the emergency room as needed. All discharge instructions reviewed with patient and/or family. Voiced understanding. Copy Copies To 1: DESIRAE MAURICE MD, JOSHUA T MD Nov 19, 2016 19:49
[2016-11-19 20:45] LABS: BILIRUBIN,URINE NEGATIVE (NEGATIVE); KETONES,URINE NEGATIVE (NEGATIVE); LEUKOCYTE ESTERASE ,URINE NEGATIVE (NEGATIVE); NITRITE,URINE NEGATIVE (NEGATIVE); PH,URINE 6 (5-9); PROTEIN,URINE 1+ (NEGATIVE); UROBILINOGEN,URINE NORMAL (NORMAL)
[2016-11-19] MEDS ORDERED: KETOROLAC 30 MG/ML VIAL IVP ONE (20:45)
[2016-11-19] MEDS: MAGNESIUM OXIDE (MAG-OX)400 MG TAB PO ONE ×2 (21:38→22:15)
[2016-11-19 22:15] VITALS: BP 140/98
== END 2016-11-19 22:15 | disposition home or self-care (01) ==
LOC: EDUNIT# 18:43 → ER 18:43
DX: E10.649 Type 1 diabetes mellitus with hypoglycemia without coma (principal); E83.42 Hypomagnesemia; G89.18 Other acute postprocedural pain; F43.9 Reaction to severe stress, unspecified; Z96.41 Presence of insulin pump (external) (internal)
CPT/HCPCS: 36415; 71010; 80053; 80306; 80320; 80329; 81000; 82962; 83735; 84703; 85025; 93041; 96361; 96374; 96375

== ENCOUNTER 2016-11-29 18:15 | Emergency (ER) | payer MEDICAID, OTHER ==
[~2016-11-29] VITALS: Ht 170.2 cm; Wt 68.0 kg
[2016-11-29] MEDS ORDERED: PAMI30VI8 SQ (19:00)
[2016-11-29] MEDS ORDERED: INSU300I SQ (19:00)
--- NOTE | 2016-11-29 21:42 | ED General ---
General Chief Complaint: Skin/Wound Problems Stated Complaint: SUTURE REMOVAL/R FOOT POSS INFECTION Nursing Triage Note: pt reports she had right 2nd toe amputated 2 weeks ago. she was supposed to f/ u with dr hunter last week, but was unable to make that appt. she is requesting suture removal. also c/o infection at base of great toe et possible infection at amputation site. Nursing Sepsis Screen: No Definite Risk Source of Information: Patient Exam Limitations: No Limitations History of Present Illness Time Seen by Provider: 21:42 Initial Comments 31-year-old female patient presents to the emergency department with complaints of needing sutures removed from the right second toe amputation. Patient states toe was amputated 2 weeks ago. States she was supposed follow-up with Dr. Hunter last week, but was unable to see him. Has not rescheduled the appointment. Does complain of increased redness, swelling, and warmth beginning this a.m. Timing/Duration: Getting Worse, Other (this morning) Modifying Factors: worse with Other (worse with palpation) Allergies and Home Medications Allergies Coded Allergies: No Known Drug Allergies (Unverified , 10/22/16) Home Medications Buspirone HCl 15 Mg Tablet, 30 MG PO TID, (Reported) LAST FILLED #168 09-11-16 TAKES 2 (15MG) TABLETS Gabapentin 800 Mg Tablet, 800 MG PO TID, (Reported) Hydroxyzine Pamoate 50 Mg Capsule, 50 MG PO TID, (Reported) Insulin Glargine,Hum.rec.anlog 300 Unit/1 Ml Insuln.pen, 30 UNIT SQ HS, ( Reported) Insulin Lispro 100 Unit/1 Ml Cartridge, 100 UNIT SQ, (Reported) Naproxen 500 Mg Tablet, 500 MG PO BID, (Reported) Paroxetine HCl 20 Mg Tablet, 20 MG PO DAILY, #30 Ref 0 Prescribed by: MENA TONEY on 10/25/16 1454 Sulfamethoxazole/Trimethoprim 1 Each Tablet, 1 EACH PO BID for 7 Days, #14 Ref 0 Prescribed by: KARRIE BENTON on 11/29/16 2210 Constitutional: No chills, No fever, No malaise Skin: see HPI, change in color (erythema), other (ulcer right foot) Psychiatric/Neurological: Denies Numbness, Denies Paresthesia, Denies Tingling , Denies Weakness All Other Systems Reviewed Negative Unless Noted: Yes (Negative excepted noted.) Past Qmcqghi-Kvvdaq-Sgzduf Hx Patient Social History Type Used: Cigarettes Recent Foreign Travel: No Contact w/Someone Who Travel: No Recent Infectious Disease Expo: No Recent Hopitalizations: No Immunizations Up To Date Tetanus Booster (TDap): Unknown PED Vaccines UTD: No Date of Influenza Vaccine: Jul 03, 2016 Seasonal Allergies Seasonal Allergies: No Surgeries HX Surgeries: Yes (OPEN HEART SX AN ) Surgeries: Cardiac, Section, Orthopedic Respiratory Hx Respiratory Disorders: No Cardiovascular Hx Cardiac Disorders: Yes (CARDIAC SURGERY AN INFANT) Neurological Hx Neurological Disorders: Yes Neurological Disorders: Neuropathy, Seizure Disorder Genitourinary Hx Genitourinary Disorders: No Gastrointestinal Hx Gastrointestinal Disorders: Yes (CELIAC DISEASE) Musculoskeletal Hx Musculoskeletal Disorders: Yes (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) Endocrine Hx Endocrine Disorders: Yes (PT HAS INSULIN PUMP) Endocrine Disorders: Diabetes, Insulin dep HEENT HX ENT Disorders: No Loss of Vision: Denies Hearing Impairment: Denies Cancer Hx Cancer: No Psychosocial Hx Psychiatric Problems: Yes Behavioral Health Disorders: Anxiety Integumentary HX Skin/Integumentary Disorder: No Blood Transfusions Hx Blood Disorders: Yes (HEP C+) Reviewed Nursing Assessment Reviewed/Agree w Nursing PMH: Yes Family Medical History Significant Family History: No Pertinent Family Hx Physical Exam Vital Signs Vital Sign - Last 12Hours 11/29/16 11/29/16 18:54 22:45 Temp 99.0 Pulse 104 Resp 18 B/P (MAP) 120/81 Pulse Ox 98 Capillary Refill : Less Than 3 Seconds General Appearance: No Apparent Distress, WD/WN Cardiovascular: Normal Peripheral Pulses Extremity: Normal Capillary Refill, Inflammation (erythema, warmth, swelling right mid and distal foot. 2 x 2 cm ulcer noted on the base of the first right toe without active drainage. Second toe incision healed with sutures still intact.), Other (right foot soft tissue tenderness) Neurologic/Psychiatric: Alert, Oriented x3, Other (patient is very fidgety, avoids eye contact, nervous.) Skin: Warm/Dry, Erythema, Tattoos/Piercings, Other (erythema, warmth, swelling right mid and distal foot. 2 x 2 cm ulcer noted on the base of the first right toe without active drainage. Second toe incision healed with sutures still intact.) Progress/Results/Core Measures Results/Orders My Orders Orders - KARRIE BENTON Hydrocodone/Apap 10/325 Tablet (Lortab 1 (11/29/16 21:51) Wound Culture (11/29/16 21:51) Foot, Right, 3 View (11/29/16 21:51) Rx-Trimeth/Sulfameth Ds Tab (Rx-Bactrim/ (11/29/16 21:53) Vital Signs/I&O Vital Sign - Last 12Hours 11/29/16 11/29/16 18:54 22:45 Temp 99.0 99.0 Pulse 104 104 Resp 18 18 B/P (MAP) 120/81 Pulse Ox 98 Blood Pressure Mean: 94 Diagnostic Imaging Diagonstic Imaging: Xray Plain Films/CT/US/NM/MRI: other (right foot) Reviewed: Reviewed/Discussed Departure Communication Progress Notes Diagnostic findings discussed with the patient. Patient instructed to follow- up with Dr. Hunter as an outpatient for recheck, however patient states she is moving back to the [facility]. Patient states she leaves tomorrow at midnight to return home. Patient instructed to follow-up with the orthopedic surgeon, family practitioner, or urgent care/quick care of her choice in the next 1-2 days. All return precautions were discussed with the patient as described in the discharge instructions of this report. Patient voices understanding and agrees with the treatment plan. Impression Impression: Primary Impression: Cellulitis of right foot Additional Impression: Skin ulcer Qualified Codes: L98.491 - Non-pressure chronic ulcer of skin of other sites limited to breakdown of skin Disposition: 01 HOME, SELF-CARE Condition: Improved Departure-Patient Inst. Decision time for Depature: 22:10 Referrals: ORION HUNTER DPM NO,LOCAL PHYSICIAN (PCP) Primary Care Physician Patient Instructions: Cellulitis (Skin Infection), Adult (DC) Add. Discharge Instructions: All discharge instructions reviewed with patient and/or family. Voiced understanding. Medications as instructed. Continue usual home medications. Elevate the right foot on pillows above the level of the heart. Shower with antibacterial soap. Pat dry, apply triple antibiotic ointment twice daily to the ulcer and cover with gauze. Change dressing frequently if dressing becomes soiled. Follow-up with Dr. Hunter as an outpatient for a recheck this week or early next week. Call for appointment time tomorrow morning. Return to the emergency department for worsened redness, fever, drainage, swelling, pain, or any other concerns. Scripts Sulfamethoxazole/Trimethoprim (Bactrim Ds Tablet) 1 Each Tablet 1 EACH PO BID for 7 Days, #14 TAB 0 Refills Prov: KARRIE BENTON 11/29/16 KARRIE BENTON Nov 29, 2016 21:42
[2016-11-29] MEDS ORDERED: HYDROcodone/APAP 10 MG/325 MG (LORTAB) TAB PO STA (21:51)
[2016-11-29] MEDS ORDERED: RX-TRIMETH/SULFA. 160-800 MG (BACTRIM DS) TAB PPK#2 PO STA (21:53)
[2016-11-29] MEDS ORDERED: SULF1TAB35 PO (22:10)
[2016-11-29 22:45] VITALS: BP 120/81
--- NOTE | 2016-11-30 07:32 | Diagnostic Imaging Report ---
INDICATION: Recent surgery. Exam compared with study dated 10/22/2016. FINDINGS: There has been interval amputation of the second ray just distal to its mid proximal phalanx. Fragmentation and irregularity and destructive changes to the distal aspect of the proximal phalanx of the great toe is an unchanged finding. There is new subtle irregularity to the distal head of the third metatarsal which could be posttraumatic. Correlate with any recent injury. No other potential change. IMPRESSION: Interval surgical resection of portions of the second toe. Unchanged sclerosis, lucency, and fragmentation, distal aspect, proximal phalanx great toe. Lucency and subtle irregularities to the distal head of the third metatarsal as a new finding which is of uncertain etiology. This could be fracture from trauma. Correlate clinically. No soft tissue gas or opaque foreign body at this exam. Dictated by: Dictated on workstation # [id number]
--- OUTSIDE RECORDS SUMMARY | 2016-12-24 05:09 | XMS REPORT | Continuity of Care Document ---
Author Author [facility] Organization [facility] Address [facility] [address] [place], [place] [id number] Phone Unavailable Support Name Relationship Address Phone ANSON SAPP Caregiver [address] [place] [address] SOPHIA SOW MD Caregiver [address] [place], [place] [address] Unavailable BASSAM STEVENSON Next Of Kin [address] [id number] Insurance Providers Payer Name Policy Number Subscriber Name Relationship [employer] [facility] [id number] She Galvin 16 Self / Same As Patient Advance Directives Directive Response Recorded Date/Time Advance Directives No 03/16/15 4:11pm Living Will No 03/16/15 4:11pm Health Care Proxy No 09/25/16 6:41pm Power of Manager Patient for Health Care No 03/16/15 4:11pm Organ, Tissue, or Eye Donor No 03/16/15 4:11pm Do you have a signed organ donor card? No 03/16/15 4:11pm Chief Complaint and Reason for Visit Chief Complaint FOOT PROBLEM Reason for Visit [id number] Problems Active Problems Medical Problem Onset Date Status Abdominal pain Unknown Acute Abscess Unknown Acute Cellulitis of toe of right foot Unknown Acute Hyperglycemia Unknown Acute Medication refill Unknown Acute Toe fracture, right Unknown Acute Medications Current Home Medications Medication Dose Units Route Directions Days/Qty Instructions Start Date Insulin Detemir* 100 U/Ml 15 Unit Sub-Q Twice A Day 11/04/15 Insulin Detemir 100 U/Ml Unknown Dose Sub-Q Four Times Daily *PER SLIDING SCALE 11/04/15 Gabapentin 800 Mg 800 Mg Oral Three Times A Day 11/04/15 Ondansetron* 4 Mg/Tab 4 Mg Oral Every 6 To 8 Hours As Needed as needed for Nausea 10 11/04/15 Acetaminophen/Hydrocodone Bitart (Lortab 5-325*) 1 Tab 1 Each Oral Every 4- 6 Hrs As Needed Pain as needed for Pain 15 11/04/15 Buspirone Hcl 10 Mg 15 Mg Oral Three Times A Day 11/04/15 Naproxen 500 Mg 500 Mg Oral Twice Daily As Needed 11/04/15 Hydroxyzine Hcl 50 Mg 50 Mg Oral Three Times A Day 11/04/15 Acetaminophen/Hydrocodone Bitart (Lortab 5-325*) 1 Tab 1 Each Oral Every 4- 6 Hrs As Needed Pain 15 07/22/16 Sulfamethoxazole/Trimethoprim* 1 Tab 2 Ea Oral Twice A Day 40 TAKE FOR 5 DAYS 07/22/16 Levofloxacin 750 Mg 750 Mg Oral Daily 10 09/25/16 Oxycodone Hcl/Acetaminophen* 1 Tab 1 Ea Oral Every 6 Hrs As Needed For Pain 15 09/25/16 Past Home Medications Medication Directions Ordered Status Insulin Detemir* 100 U/Ml Vial, 13 Unit Sub-Q Twice A Day 03/16/15 Discontinued Social History Social History Problem Response Recorded Date/Time Smoking Status Current every day smoker 03/16/2015 4:50pm Tobacco Use Denies Use 07/22/2016 4:34pm Query Response Start Date Stop Date Smoking Status Current every day smoker Hospital Discharge Instructions No hospital discharge instructions. Plan of Care Discharge Date 09/25/16 7:10pm Condition at Discharge Stable Instructions/Education Provided Toe Fracture (ED) Cellulitis (ED) Prescriptions See Medication Section Referrals ANSON SAPP - 2-3 Days Functional Status Query Response Date Recorded Patient Behavior Cooperative Appropriate September 25, 2016 5:15pm Allergies, Adverse Reactions, Alerts No known allergies. Immunizations Name Given Type Hx Diphtheria, Pertussis, Tetanus Vaccination Up To Date Historical Hx Influenza Vaccination Yes Historical Hx Pneumococcal Vaccination Yes Historical DTP 07/22/16 Administered Vital Signs Acute Vital Signs Vital Response Date/Time Temperature (Fahrenheit) 98.2 degrees F (97.6 - 99.5) 09/25/2016 7:10pm Temperature Source Temporal Artery 09/25/2016 7:10pm Pulse Rate (adult) 97 bpm (60 - 90) 09/25/2016 7:10pm Respiratory Rate 20 bpm (12 - 24) 09/25/2016 7:10pm Blood Pressure 144/94 mm Hg 09/25/2016 7:10pm O2 Sat by Pulse Oximetry 98 % (90 - 100) 09/25/2016 7:10pm Oxygen Delivery Method 09/25/2016 7:10pm Pain Location Body Site Modifier 09/25/2016 6:30pm Height 5 ft 7 in Weight 130 lb Body Mass Index 20.0 kg/m^2 Results No known relevant diagnostic tests, laboratory data and/or discharge summary. Procedures Procedure Status Date Provider(s) X-ray of right foot, two views Completed 09/25/16 SOPHIA SOW MD Encounters Encounter Location Arrival/Admit Date Discharge/Depart Date Attending Provider Departed Emergency Room [facility] 09/25/16 5:18pm 09/25/16 7:10pm SOPHIA SOW MD Departed Emergency Room [facility] 07/22/16 3:30pm 07/22/16 5:10pm LAYA ALEX DO Recent Diagnosis
--- OUTSIDE RECORDS SUMMARY | 2016-12-24 05:09 | XMS REPORT ---
Author Author ANSON SAPP Organization [employer] Address Unknown Phone Unavailable Care Team Providers Care Filling Station Attendant Name Role Phone ANSON SAPP CP Unavailable [...] Start Date End Date Status Dosage Humalog [facility] [id number] 100 UNIT/ML USE DIRECTED PER INSULIN PUMP- 2 VIALS MONTHLY Results No Known Results Summary Purpose [employer] Submission
--- OUTSIDE RECORDS SUMMARY | 2016-12-24 05:09 | XMS REPORT ---
Author Author ANSON SAPP Organization [employer] Address Unknown Phone Unavailable Care Team Providers Care Marble Machine Operator Name Role Phone ANSON SAPP CP Unavailable Allergies No Known Allergies Problems Problem Type Condition Code Onset Dates Condition Status Problem Celiac disease K90.0 Active Problem Hepatitis C virus infection, unspecified chronicity B19.20 Active Problem Diabetes type 1, uncontrolled E10.65 Active Problem Anxiety disorder, unspecified F41.9 Active Problem Type 1 diabetes mellitus with diabetic neuropathy E10.40 Active Medications No Known Medications Results No Known Results Summary Purpose [employer] Submission
--- OUTSIDE RECORDS SUMMARY | 2016-12-24 05:09 | XMS REPORT ---
Author Author TREMAYNE SANABRIA Organization [employer] Address Unknown Phone Unavailable Care Team Providers Care Gun Synchronizer Name Role Phone TREMAYNE SANABRIA Unavailable Allergies No Known Allergies Problems Problem Type Condition ICD-9 Code Onset Dates Condition Status Problem Type 1 diabetes, uncontrolled, with neuropathy 250.63 Active Problem Celiac disease 579.0 Active Problem Diabetes mellitus type I 250.01 Active Problem Hepatitis C 070.70 Active Problem Anxiety 300.00 Active Medications No Known Medications Results No Known Results Summary Purpose [employer] Submission
--- OUTSIDE RECORDS SUMMARY | 2016-12-24 05:10 | XMS REPORT ---
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 Active 620897982 Problem Microalbuminuria R80.9 Active 159500606 Problem Diabetes type 1, uncontrolled E10.65 Active 688691719 Problem Hep C w/o coma, chronic B18.2 Active 289856323 Problem Type 1 diabetes mellitus with foot ulcer E10.621 Active 135292752 ALLERGIES Unknown Allergies SOCIAL HISTORY No smoking Hx information available PLAN OF CARE VITAL SIGNS MEDICATIONS Medication Instructions Dosage Frequency Start Date End Date Duration Status Cyclobenzaprine HCl 5 mg Orally Three times a day 1 tablet 8h Nov, Active RESULTS No Results PROCEDURES No Known procedures IMMUNIZATIONS No Known Immunizations
--- OUTSIDE RECORDS SUMMARY | 2016-12-24 05:10 | XMS REPORT ---
Author Author DESMOND HINDS [facility] [employer] Address Unknown Phone Unavailable Care Team Providers Care Inspector Machine Cut Glass Name Role Phone DESMOND HINDS Unavailable Allergies, Adverse Reactions, Alerts Substance Reaction Event Type gluten bloating Non Drug Allergy Problems Problem Type Condition Code Onset Dates Condition Status Problem Celiac disease K90.0 Active Problem Hepatitis C virus infection, unspecified chronicity B19.20 Active Problem Diabetes type 1, uncontrolled E10.65 Active Assessment Encounter for dental examination Z01.20 Active Problem Anxiety disorder, unspecified F41.9 Active Problem Type 1 diabetes mellitus with diabetic neuropathy E10.40 Active Medications Medication Code System Code Instructions Start Date End Date Status Dosage BuSpar NDC 0 30 MG Orally 3 times a day 1 tablet Vistaril [facility] [address]-89 50 MG Orally 3 times a day Apr 21, 2015 1 capsule as needed Humalog KwikPen [facility] [address]-39 100 UNIT/ML Subcutaneous 3 times a day with meals Apr 13, 2015 as directed per sliding scale Lancets NDC 0 Box 4 times a day Apr 14, 2015 as directed Naproxen [facility] [address]-46 500 MG Orally every 12 hrs 1 tablet as needed Gabapentin [facility] [address]-92 600 MG Orally Three times a day 1 tablet Levemir FlexTouch [facility] [address]-30 100 UNIT/ML Subcutaneous 2 times a day Apr 13, 2015 15 units TrueTrack Test Strips NDC 0 Test Strips In Vitro 4 times a day Apr 13, 2015 as directed Test strips NDC 0 1 tablet 6 times per day Apr 21, 2015 as directed Advocate Insulin Pen [place] [facility] 15782620036 31G X 8 MM DIRECTED WITH INSULIN PENS Procedures Procedure Coding System Code Date PROPHYLAXIS - ADULT CPT-4 D1110 Jul 15, 2015 INTRAORL - CMPL SERIES CODE 95466 CPT-4 D0210 Jul 15, 2015 Vital Signs Date/Time: Jul 15, 2015 Blood Pressure Diastolic 78 mmHg Blood Pressure Systolic 113 mmHg Cardiac Monitoring Heart Rate 91 bpm Results No Known Results Summary Purpose [employer] Submission
--- OUTSIDE RECORDS SUMMARY | 2016-12-24 05:10 | XMS REPORT ---
Author Author TREMAYNE SANABRIA Organization [employer] Address Unknown Phone Unavailable Care Team Providers Care Emission Specialist Name Role Phone TREMAYNE SANABRIA Unavailable Allergies [...]
--- OUTSIDE RECORDS SUMMARY | 2016-12-24 05:10 | XMS REPORT ---
Author Author TREMAYNE SANABRIA Organization [employer] Address Unknown Phone Unavailable Care Team Providers Care Solderer Furnace Name Role Phone TREMAYNE SANABRIA Unavailable Allergies, Adverse Reactions, Alerts Substance Reaction Event Type gluten bloating Non Drug Allergy Problems Problem Type Condition Code Onset Dates Condition Status Problem Celiac disease K90.0 Active Problem Hepatitis C virus infection, unspecified chronicity B19.20 Active Problem Diabetes type 1, uncontrolled E10.65 Active Assessment Type 1 diabetes mellitus with diabetic neuropathy E10.40 Active Problem Anxiety disorder, unspecified F41.9 Active Problem Type 1 diabetes mellitus with diabetic neuropathy E10.40 Active Medications Medication Code System Code Instructions Start Date End Date Status Dosage Gabapentin [facility] [address]-42 800 MG Orally Three times a day 1 tablet Naproxen [facility] [address]-86 500 MG Orally every 12 hrs 1 tablet as needed Humalog KwikPen [facility] [address]-33 100 UNIT/ML Subcutaneous 3 times a day with meals Apr 13, 2015 as directed per sliding scale Levemir FlexTouch [facility] [address]-36 100 UNIT/ML Subcutaneous and 16 units in the evening. Apr 13, 2015 15 units in the morning BuSpar NDC 0 30 MG Orally 3 times a day 1 tablet Vistaril [facility] [address]-92 50 MG Orally 3 times a day Apr 21, 2015 1 capsule as needed TrueTrack Test Strips NDC 0 Test Strips In Vitro 4 times a day Apr 13, 2015 as directed Lancets NDC 0 Box 4 times a day Apr 14, 2015 as directed Test strips NDC 0 1 tablet 6 times per day Apr 21, 2015 as directed Advocate Insulin Pen [place] [facility] [id number] 31G X 8 MM DIRECTED WITH INSULIN PENS Procedures Procedure Coding System Code Date COMPREHEN METABOLIC PANEL CPT-4 59595 Jul 23, 2015 VENIPUNCT, ROUTINE* CPT-4 16059 Jul 23, 2015 GLYCATED HEMOGLOBIN TEST CPT-4 69685 Jul 23, 2015 Office Visit, Est Pt., Level 3 CPT-4 18173 Jul 23, 2015 Vital Signs Date/Time: Jul 23, 2015 Temperature 98.7 F Weight 140.3 lbs Height 66 in BMI 22.64 Index Blood Pressure Diastolic 70 mmHg Blood Pressure Systolic 102 mmHg Cardiac Monitoring Heart Rate 94 bpm Results Name Result Date Reference Range Unit Abnormality Flag ROUTINE VENIPUNCTURE Summary Purpose [employer] Submission
--- OUTSIDE RECORDS SUMMARY | 2016-12-24 05:10 | XMS REPORT ---
Author Author ANSON SAPP Organization [employer] Address Unknown Phone Unavailable Care Team Providers Care Toll Collector Supervisor Name Role Phone ANSON SAPP CP Unavailable Allergies, Adverse Reactions, Alerts Substance Reaction Event Type NovoLog Flexpen hypoglycemia Drug Allergy gluten bloating Non Drug Allergy Problems Problem [...]
--- OUTSIDE RECORDS SUMMARY | 2016-12-24 05:10 | XMS REPORT ---
Author Author ANSON SAPP Organization [employer] Address Unknown Phone Unavailable Care Team Providers Care Family Practice Md Name Role Phone ANSON SAPP CP Unavailable Allergies No Known Allergies Problems Problem Type Condition Code Onset Dates Condition Status Problem Microalbuminuria R80.9 Active Problem Diabetes type 1, uncontrolled E10.65 Active Problem Type 1 diabetes mellitus with foot ulcer E10.621 Active Problem Anxiety disorder, unspecified F41.9 Active Problem Type 1 diabetes mellitus with diabetic neuropathy E10.40 Active Problem Celiac disease K90.0 Active Problem Hepatitis C virus infection, unspecified chronicity B19.20 Active Medications Medication Code System Code Instructions Start Date End Date Status Dosage Humalog [facility] [id number] 100 UNIT/ML Subcutaneous per insulin pump- 2 vials monthly as directed Results No Known Results Summary Purpose [employer] Submission
--- OUTSIDE RECORDS SUMMARY | 2016-12-24 05:10 | XMS REPORT ---
Author Author TREMAYNE SANABRIA Organization [employer] Address Unknown Phone Unavailable Care Team Providers Care Physicist [employer] Name Role Phone TREMAYNE SANABRIA Unavailable Allergies [...]
--- OUTSIDE RECORDS SUMMARY | 2016-12-24 05:10 | XMS REPORT ---
Author Author TREMAYNE SANABRIA Organization [employer] Address Unknown Phone Unavailable Care Team Providers Care It Trainee Name Role Phone TREMAYNE SANABRIA Unavailable Allergies, Adverse Reactions, Alerts Substance Reaction Event Type gluten bloating Non Drug Allergy Problems Problem Type Condition Code Onset Dates Condition Status Problem Celiac disease K90.0 Active Problem Hepatitis C virus infection, unspecified chronicity B19.20 Active Problem Diabetes type 1, uncontrolled E10.65 Active Assessment Diabetes type 1, uncontrolled E10.65 Active Assessment Needs flu shot Z23 Active Problem Anxiety disorder, unspecified F41.9 Active Problem Type 1 diabetes mellitus with diabetic neuropathy E10.40 Active Medications Medication Code System Code Instructions Start Date End Date Status Dosage Naproxen [facility] [address]-17 500 MG Orally every 12 hrs 1 tablet as needed Levemir FlexTouch [facility] [address]-54 100 UNIT/ML Subcutaneous 2 times a day Apr 13, 2015 15 units Test strips NDC 0 1 tablet 6 times per day Apr 21, 2015 as directed Humalog KwikPen [facility] [address]-76 100 UNIT/ML Subcutaneous 3 times a day with meals Apr 13, 2015 as directed per sliding scale Gabapentin [facility] [address]-03 600 MG Orally Three times a day 1 tablet BuSpar NDC 0 30 MG Orally 3 times a day 1 tablet Advocate Insulin Pen Jean [facility] [id number] 31G X 8 MM DIRECTED WITH INSULIN PENS TrueTrack Test Strips NDC 0 Test Strips In Vitro 4 times a day Apr 13, 2015 as directed Lancets NDC 0 Box 4 times a day Apr 14, 2015 as directed Vistaril [facility] [address]-41 50 MG Orally 3 times a day Apr 21, 2015 1 capsule as needed Procedures Procedure Coding System Code Date SINGLE IMMUNIZATION ADMIN CPT-4 87063 Jun 22, 2015 Office Visit, Est Pt., Level 3 CPT-4 61578 Jun 22, 2015 FLUARIX QUAD (3 & UP)-GSK-2014 CPT-4 61801 Jun 22, 2015 Vital Signs Date/Time: Jun 22, 2015 Temperature 98.2 F Weight 139.0 lbs Height 66 in BMI 22.43 Index Blood Pressure Diastolic 78 mmHg Blood Pressure Systolic 104 mmHg Cardiac Monitoring Heart Rate 90 bpm Results No Known Results Immunizations Vaccine Administration Date FLUARIX QUAD (3 & UP)-[employer]-2014Jun 22, 2015 Summary Purpose eClinicalWorks Submission
--- OUTSIDE RECORDS SUMMARY | 2016-12-24 05:11 | XMS REPORT ---
Author Author ANSON SAPP Organization [employer] Address Unknown Phone Unavailable Care Team Providers Care Garment Parts Cutter Hand Name Role Phone ANSON SAPP CP Unavailable [...] E10.621 Active Problem Microalbuminuria R80.9 Active Medications No Known Medications Results No Known Results Summary Purpose [employer] Submission
--- OUTSIDE RECORDS SUMMARY | 2016-12-24 05:11 | XMS REPORT ---
Author Author ANSON SAPP [facility] e[employer] Address Unknown Phone Unavailable Care Team Providers Care Movie Extra Name Role Phone ANSON SAPP CP Unavailable Allergies, Adverse Reactions, Alerts Substance Reaction Event Type NovoLog Flexpen hypoglycemia Drug Allergy gluten bloating Non Drug Allergy Problems Problem Type Condition Code Onset Dates Condition Status Problem Celiac disease K90.0 Active Problem Hepatitis C virus infection, unspecified chronicity B19.20 Active Problem Diabetes type 1, uncontrolled E10.65 Active Assessment Type 1 diabetes mellitus without complication E10.9 Active Problem Anxiety disorder, unspecified F41.9 Active Problem Type 1 diabetes mellitus with diabetic neuropathy E10.40 Active Medications Medication Code System Code Instructions Start Date End Date Status Dosage Naproxen [facility][NOTE 3] [address]-69 500 MG Orally every 12 hrs 1 tablet as needed BuSpar NDC 0 30 MG Orally 3 times a day 1 tablet TrueTrack Test Strips NDC 0 Test Strips In Vitro 4 times a day Apr 13, 2015 as directed Test strips NDC 0 1 tablet 6 times per day Apr 21, 2015 as directed Vistaril [facility][NOTE 3] [address]-25 50 MG Orally 3 times a day Apr 21, 2015 1 capsule as needed Levemir FlexTouch [facility][NOTE 3] [address]-57 100 UNIT/ML Subcutaneous and 16 units in the evening. Apr 13, 2015 15 units in the morning Gabapentin [facility][NOTE 3] [address]-55 800 MG Orally Three times a day 1 tablet Advocate Insulin Pen [place] [facility][NOTE 3] 24662630044 31G X 8 MM DIRECTED WITH INSULIN PENS Lancets ND 0 Box 4 times a day Apr 14, 2015 as directed Humalog KwikPen [facility][NOTE 3] [address]-50 100 UNIT/ML Subcutaneous 3 times a day with meals Apr 13, 2015 as directed per sliding scale Procedures Procedure Coding System Code Date Office Visit, Est Pt., Level 3 CPT-4 14211 Aug 17, 2015 Vital Signs Date/Time: Aug 17, 2015 Temperature 98 F Weight 140 lbs Height 66 in BMI 22.59 Index Blood Pressure Diastolic 70 mmHg Blood Pressure Systolic 102 mmHg Cardiac Monitoring Heart Rate 84 bpm Results No Known Results Summary Purpose eClinicalWorks Submission
--- OUTSIDE RECORDS SUMMARY | 2016-12-24 05:11 | XMS REPORT ---
Author Author ANSON SAPP Organization [employer] Address Unknown Phone Unavailable Care Team Providers Care Door To Door Selling Agent Name Role Phone ANSON SAPP CP Unavailable [...]
--- OUTSIDE RECORDS SUMMARY | 2016-12-24 05:11 | XMS REPORT | Continuity of Care Document ---
Author Author [facility] Organization [facility] Address [facility] [address] [place] [address] Phone Unavailable Support Name Relationship Address Phone LAYA ALEX DO Caregiver [address] [place], [place] [address] BASSAM STEVENSON Next Of Kin [address] [place] [address] Insurance Providers Payer Name Policy Number Subscriber Name Relationship [employer] [id number] She Galvin 16 Self / Same As Patient Advance Directives Directive Response Recorded Date/Time Advance Directives No 03/16/15 4:11pm Living Will No 03/16/15 4:11pm Health Care Proxy No 07/22/16 3:38pm Power of Television Producer for Health Care No 03/16/15 4:11pm Organ, Tissue, or Eye Donor No 03/16/15 4:11pm Do you have a signed organ donor card? No 03/16/15 4:11pm Chief Complaint and Reason for Visit Chief Complaint ABSCESS Reason for Visit Abscess Problems Active Problems Medical Problem Onset Date Status Abdominal pain Unknown Acute Abscess Unknown Acute Hyperglycemia Unknown Acute Medication refill Unknown Acute Medications Current Home Medications Medication [...] Day 40 TAKE FOR 5 DAYS 07/22/16 Past Home Medications Medication Directions Ordered Status Insulin Detemir* 100 U/Ml Vial, 13 Unit Sub-Q Twice A Day 03/16/15 Discontinued Social History Social History Problem Response Recorded Date/Time Smoking Status Current every day smoker 03/16/2015 4:50pm Tobacco Use Denies Use 07/22/2016 4:34pm Alcohol Use none 07/22/2016 4:34pm Drug Use none 07/22/2016 4:34pm Query Response Start Date Stop Date Smoking Status Current every day smoker Hospital Discharge Instructions No hospital discharge instructions. Plan of Care Discharge Date 07/22/16 5:10pm Disposition 01 HOME, SKILLED NURSING,ASSISTED LIVING Condition at Discharge Stable Instructions/Education Provided Abscess (ED) Prescriptions See Medication Section Referrals Your Doctor - 2-3 Days Functional Status Query Response Date Recorded Patient Behavior Cooperative Appropriate July 22, 2016 3:48pm Allergies, Adverse Reactions, Alerts No known allergies. Immunizations Name Given Type Hx Diphtheria, Pertussis, Tetanus Vaccination patient states that it is current, then states to , " sam moscoso know Historical Hx Influenza Vaccination Y last fall, not yet this year Historical Hx Pneumococcal Vaccination No Historical DTP 07/22/16 Administered Vital Signs Acute Vital Signs Vital Response Date/Time Temperature (Fahrenheit) 98.3 degrees F (97.6 - 99.5) 07/22/2016 5:09pm Temperature Source Temporal Artery 07/22/2016 5:09pm Pulse Rate (adult) 89 bpm (60 - 90) 07/22/2016 5:09pm Respiratory Rate 18 bpm (12 - 24) 07/22/2016 5:09pm Blood Pressure 138/79 mm Hg 07/22/2016 5:09pm O2 Sat by Pulse Oximetry 100 % (90 - 100) 07/22/2016 5:09pm Oxygen Delivery Method 07/22/2016 5:09pm Pain Location Body Site Modifier 07/22/2016 4:36pm Height 5 ft 7 in Weight 121 lb Body Mass Index 18.0 kg/m^2 Results No known relevant diagnostic tests, laboratory data and/or discharge summary. Procedures No known history of procedures. Encounters Encounter Location Arrival/Admit Date Discharge/Depart Date Attending Provider Departed Emergency Room [place] 07/22/16 3:30pm 07/22/16 5:10pm LAYA ALEX DO Recent Diagnosis
--- OUTSIDE RECORDS SUMMARY | 2016-12-24 05:11 | XMS REPORT ---
Author Author ANSON SAPP Organization [employer] Address Unknown Phone Unavailable Care Team Providers Care Natural Resource Economist Name Role Phone ANSON SAPP CP Unavailable Allergies, Adverse Reactions, Alerts Substance Reaction Event Type gluten bloating Non Drug Allergy Problems Problem Type Condition ICD-9 Code Onset Dates Condition Status Problem Type 1 diabetes, uncontrolled, with neuropathy 250.63 Active Problem Celiac disease 579.0 Active Problem DM type 1 (diabetes mellitus, type 1) 250.01 Active Assessment DM type 1 (diabetes mellitus, type 1) 250.01 Active Assessment Generalized anxiety disorder 300.02 Active Problem Hepatitis C 070.70 Active Problem Anxiety 300.00 Active Medications Medication Code System Code Instructions Start Date End Date Status Dosage TrueTrack Test Strips NDC 0 Test Strips In Vitro 4 times a day Apr 13, 2015 as directed BuSpar NDC 0 30 MG Orally 3 times a day 1 tablet Lancets NDC 0 Box 4 times a day Apr 14, 2015 as directed Naproxen [facility] [address]-79 500 MG Orally every 12 hrs 1 tablet as needed Levemir FlexTouch [facility] [address]-83 100 UNIT/ML Subcutaneous 2 times a day Apr 13, 2015 13u Humalog KwikPen [facility] [address]-33 100 UNIT/ML Subcutaneous 3 times a day with meals Apr 13, 2015 as directed per sliding scale Vistaril [facility] [address]-80 50 MG Orally 3 times a day Apr 21, 2015 1 capsule as needed Test strips NDC 0 1 tablet 6 times per day Apr 21, 2015 as directed Gabapentin [facility] [address]-64 600 MG Orally Three times a day 1 tablet Procedures Procedure Coding System Code Date Office Visit, Est Pt., Level 4 CPT-4 22907 May 21, 2015 Vital Signs Date/Time: May 21, 2015 Temperature 98.7 F Weight 142 lbs Height 66 in BMI 22.92 Index Blood Pressure Diastolic 70 mmHg Blood Pressure Systolic 112 mmHg Cardiac Monitoring Heart Rate 88 bpm Results No Known Results Summary Purpose eClinicalWorks Submission
--- OUTSIDE RECORDS SUMMARY | 2016-12-24 05:11 | XMS REPORT ---
Author Author ANSON SAPP [facility] Address [address] [place] [address] Care Team Providers Care Central Lab Technician Name Role Phone ANSON SAPP Unavailable PROBLEMS Type Condition ICD9-CM Code [id number] Code Onset Dates Condition Status SNOMED Code Problem Anxiety disorder, unspecified F41.9 Active 499855699 Problem Celiac disease K90.0 Active 699209233 Problem Hepatitis C virus infection, unspecified chronicity B19.20 Active 81356436 Problem Type 1 diabetes mellitus with diabetic neuropathy E10.40 Active 844978144 Problem Generalized anxiety disorder F41.1 Active 67731580 Problem 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
--- OUTSIDE RECORDS SUMMARY | 2016-12-24 05:11 | XMS REPORT | Continuity of Care Document ---
Author Author [facility] Organization [facility] Address [facility] [address] [place] [address] Phone Unavailable Support Name Relationship Address Phone COLTEN MCDERMOTT DO Caregiver [address] [place] [address] SENAIT, SWATI Caregiver [address] [place] [address] ISAIAH TOUSSAINT D.O. Caregiver [address] [place] [address] BASSAM STEVENSON Next Of Kin [address] [place] [address] Insurance Providers Payer Name Policy Number Subscriber Name Relationship [employer] [facility] [id number] She Galvin 18 Self / Same As Patient Advance Directives Directive Response Recorded Date/Time Advance Directives No 03/16/15 4:11pm Living Will No 03/16/15 4:11pm Health Care Proxy No 10/16/16 5:42pm Power of Program Analyst for Health Care No 03/16/15 4:11pm Organ, Tissue, or Eye Donor No 03/16/15 4:11pm Do you have a signed organ donor card? No 03/16/15 4:11pm Chief Complaint and Reason for Visit Chief Complaint RIB PAIN Reason for Visit [id number] Problems Active Problems Medical Problem Onset Date Status Abdominal pain Unknown Acute Abscess Unknown Acute Cellulitis of toe of right foot Unknown Acute Contusion of rib on left side Unknown Acute Hyperglycemia Unknown Acute Medication refill [...] Use Denies Use 07/22/2016 4:34pm Alcohol Use occasionally 10/16/2016 8:22pm Drug Use other 10/16/2016 8:22pm Employment Unemployeed 10/16/2016 8:22pm Query Response Start Date Stop Date Smoking Status Current every day smoker Hospital Discharge Instructions No hospital discharge instructions. Plan of Care Discharge Date 10/16/16 8:40pm Condition at Discharge Stable Instructions/Education Provided Contusion in Adults (ED) Prescriptions See Medication Section Referrals ANSON SAPP - Functional Status Query Response Date Recorded [place] Coma Scale Total 15 October 16, 2016 7:15pm Patient Behavior Fatigued October 16, 2016 7:15pm Allergies, Adverse Reactions, Alerts No known allergies. Immunizations Name Given Type Hx Diphtheria, Pertussis, Tetanus Vaccination Up To Date Historical Hx Influenza Vaccination Y FALL 2015 Historical Hx Pneumococcal Vaccination Yes Historical DTP 07/22/16 Administered Vital Signs Acute Vital Signs Vital Response Date/Time Temperature (Fahrenheit) 97.6 degrees F (97.6 - 99.5) 10/16/2016 7:15pm Temperature Source Temporal Artery 10/16/2016 7:15pm Pulse Rate (adult) 109 bpm (60 - 90) 10/16/2016 7:15pm Respiratory Rate 18 bpm (12 - 24) 10/16/2016 7:15pm Blood Pressure 116/85 mm Hg 10/16/2016 7:15pm O2 Sat by Pulse Oximetry 100 % (90 - 100) 10/16/2016 7:15pm Oxygen Delivery Method 10/16/2016 7:15pm Pain Location Body Site Modifier 09/25/2016 6:30pm Height 5 ft 5 in Weight 121 lb Body Mass Index 20.0 kg/m^2 Results No known relevant diagnostic tests, laboratory data and/or discharge summary. Procedures Procedure Status Date Provider(s) X-ray of right foot, two views Active 09/25/16 SOPHIA SOW MD X-ray of left ribs, three or more views including chest x-ray Completed 10/16 ISAIAH TOUSSAINT D.O. Encounters Encounter Location Arrival/Admit Date Discharge/Depart Date Attending Provider Departed Emergency Room [place] 10/16/16 4:58pm 10/16/16 8:40pm ISAIAH TOUSSAINT D.O. Departed Emergency Room [place] 09/25/16 5:18pm 09/25/16 7:10pm SOPHIA SOW MD Departed Emergency Room [place] 07/22/16 3:30pm 07/22/16 5:10pm LAYA ALEX DO Recent Diagnosis
--- OUTSIDE RECORDS SUMMARY | 2016-12-24 05:11 | XMS REPORT ---
Author Author ANSON SAPP Organization [employer] Address Unknown Phone Unavailable Care Team Providers Care Design Printing Machine Setter Name Role Phone ANSON SAPP CP Unavailable [...]
--- OUTSIDE RECORDS SUMMARY | 2016-12-24 05:11 | XMS REPORT ---
Author Author ANSON SAPP [facility] Address [address] [place] [address] Care Team Providers Care Certified Medical Technician Name Role Phone ANSON SAPP Unavailable PROBLEMS Type Condition ICD9-CM Code [id number] Code Onset Dates Condition Status SNOMED Code Problem Anxiety disorder, unspecified F41.9 Active 264630867 Problem Celiac disease K90.0 Active 129737008 Problem Hepatitis C virus infection, unspecified chronicity B19.20 Active 99172293 Problem Type 1 diabetes mellitus with diabetic neuropathy E10.40 Active 237817830 Problem Generalized anxiety disorder F41.1 Active 80768216 Problem 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
--- OUTSIDE RECORDS SUMMARY | 2016-12-24 05:12 | XMS REPORT ---
Author Author ANSON SAPP Organization [employer] Address Unknown Phone Unavailable Care Team Providers Care Primer Press Operator Name Role Phone ANSON SAPP CP Unavailable Allergies No Known Allergies Problems Problem Type Condition Code Onset Dates Condition Status Problem Diabetes type 1, uncontrolled E10.65 Active Problem Celiac disease K90.0 Active Problem Microalbuminuria R80.9 Active Problem Type 1 diabetes mellitus with diabetic neuropathy E10.40 Active Problem Hepatitis C virus infection, unspecified chronicity B19.20 Active Problem Anxiety disorder, unspecified F41.9 Active Medications No Known Medications Results No Known Results Summary Purpose eClinicalWorks Submission
--- OUTSIDE RECORDS SUMMARY | 2016-12-24 05:12 | XMS REPORT ---
Author Author DANIEL BOCANEGRA Organization [employer] Address Unknown Phone Unavailable Care Team Providers Care Roving Department End Finder Name Role Phone DANIEL BOCANEGRA CP Unavailable Allergies No Known Allergies Problems Problem Type Condition Code Onset Dates Condition Status Problem Celiac disease K90.0 Active Problem Hepatitis C virus infection, unspecified chronicity B19.20 Active Problem Diabetes type 1, uncontrolled E10.65 Active Assessment Dental caries on smooth surface penetrating into pulp K02.63 Active Problem Anxiety disorder, unspecified F41.9 Active Problem Type 1 diabetes mellitus with diabetic neuropathy E10.40 Active Medications No Known Medications Procedures Procedure Coding System Code Date EXTRAC ERUPTED TOOTH/EXPOSED ROOT CPT-4 D7140 Aug 17, 2015 Vital Signs Date/Time: Aug 20, 2015 Blood Pressure Systolic 129 mmHg Cardiac Monitoring Heart Rate 106 bpm Height 66 in Blood Pressure Diastolic 91 mmHg Results No Known Results Summary Purpose eClinicalWorks Submission
--- OUTSIDE RECORDS SUMMARY | 2016-12-24 05:12 | XMS REPORT ---
Author Author ANSON SAPP Organization [employer] Address Unknown Phone Unavailable Care Team Providers Care Outdoor Studies Professor Name Role Phone ANSON SAPP CP [...]
--- OUTSIDE RECORDS SUMMARY | 2016-12-24 05:12 | XMS REPORT ---
Author Author ANSON SAPP Organization [employer] Address Unknown Phone Unavailable Care Team Providers Care Laminator Name Role Phone ANSON SAPP CP Unavailable Allergies, Adverse Reactions, Alerts Substance Reaction Event Type gluten bloating Non Drug Allergy Problems Problem Type Condition ICD-9 Code Onset Dates Condition Status Assessment Hepatitis C 070.70 Active Problem Type 1 diabetes, uncontrolled, with neuropathy 250.63 Active Problem Celiac disease 579.0 Active Problem Diabetes mellitus type I 250.01 Active Assessment Diabetes mellitus type I 250.01 Active Assessment Generalized anxiety disorder 300.02 Active Problem Hepatitis C 070.70 Active Problem Anxiety 300.00 Active Medications Medication Code System Code Instructions Start Date End Date Status Dosage Test strips NDC 0 1 tablet 6 times per day Apr 21, 2015 as directed BuSpar NDC 0 30 MG Orally 3 times a day 0.5 tablet Humalog KwikPen [facility] [address]-15 100 UNIT/ML Subcutaneous 3 times a day with meals Apr 13, 2015 as directed per sliding scale TrueTrack Test Strips NDC 0 Test Strips In Vitro 4 times a day Apr 13, 2015 as directed Gabapentin [facility] [address]-76 600 MG Orally Three times a day 1 tablet Levemir FlexTouch [facility] [address]-52 100 UNIT/ML Subcutaneous 2 times a day Apr 13, 2015 13u Vistaril [facility] [address]-10 50 MG Orally 3 times a day Apr 21, 2015 1 capsule as needed Lancets NDC 0 Box 4 times a day Apr 14, 2015 as directed Naproxen [facility] [address]-59 500 MG Orally every 12 hrs 1 tablet as needed Procedures Procedure Coding System Code Date Office Visit, Est Pt., Level 4 CPT-4 09260 Apr 21, 2015 Vital Signs Date/Time: Apr 21, 2015 Temperature 97.0 F Weight 144.4 lbs Height 66 in BMI 23.30 Index Blood Pressure Diastolic 76 mmHg Blood Pressure Systolic 118 mmHg Cardiac Monitoring Heart Rate 16 bpm Results No Known Results Summary Purpose eClinicalWorks Submission
--- OUTSIDE RECORDS SUMMARY | 2016-12-24 05:12 | XMS REPORT ---
Author Author ANSON SAPP Organization [employer] Address Unknown Phone Unavailable Care Team Providers Care Medical Dir Name Role Phone ANSON SAPP CP Unavailable [...]
--- OUTSIDE RECORDS SUMMARY | 2016-12-24 05:12 | XMS REPORT ---
Author Author ANSON SAPP Organization [employer] Address Unknown Phone Unavailable Care Team Providers Care Television Journalist Name Role Phone ANSON SAPP CP Unavailable [...]
--- OUTSIDE RECORDS SUMMARY | 2016-12-24 05:12 | XMS REPORT ---
Author Author DANIEL BOCANEGRA [facility] eClinical[employer] Address Unknown Phone Unavailable Care Team Providers Care Drilling Supervisor Name Role Phone DANIEL BOCANEGRA CP Unavailable Allergies, Adverse Reactions, Alerts Substance [...] Instructions Start Date End Date Status Dosage Vistaril [facility] [address]-03 50 MG Orally 3 times a day Apr 21, 2015 1 capsule as needed Advocate Insulin Pen [place] [facility] [id number] 31G X 8 MM DIRECTED WITH INSULIN PENS TrueTrack Test Strips NDC 0 Test Strips In Vitro 4 times a day Apr 13, 2015 as directed Humalog KwikPen [facility] [address]-38 100 UNIT/ML Subcutaneous 3 times a day with meals Apr 13, 2015 as directed per sliding scale Gabapentin [facility] [address]-45 800 MG Orally Three times a day 1 tablet Naproxen [facility] [address]-20 500 MG Orally every 12 hrs 1 tablet as needed Lancets NDC 0 Box 4 times a day Apr 14, 2015 as directed Test strips NDC 0 1 tablet 6 times per day Apr 21, 2015 as directed Levemir FlexTouch [facility] [address]-54 100 UNIT/ML Subcutaneous and 16 units in the evening. Apr 13, 2015 15 units in the morning BuSpar NDC 0 30 MG Orally 3 times a day 1 tablet Procedures Procedure Coding System Code Date INTRAORL-PERIAPICAL 1 FILM 44616 CPT-4 D0220 Aug 17, 2015 LTD ORAL EVALUATION - PROBLEM FOCUS CPT-4 D0140 Aug 17, 2015 Vital Signs Date/Time: Aug 17, 2015 Blood Pressure Diastolic 88 mmHg Blood Pressure Systolic 129 mmHg Cardiac Monitoring Heart Rate 85 bpm Results No Known Results Summary Purpose eClinicalWorks Submission
== END 2016-11-29 22:46 | disposition home or self-care (01) ==
LOC: EDUNIT# 18:15 → ER 18:17
DX: L97.511 Non-pressure chronic ulcer of other part of right foot limited to breakdown of skin (principal); L03.115 Cellulitis of right lower limb; Z89.421 Acquired absence of other right toe(s); E11.9 Type 2 diabetes mellitus without complications; Z96.41 Presence of insulin pump (external) (internal)
CPT/HCPCS: 73630; 87070; 87077; 87186; 87205; 99283

== ENCOUNTER 2016-12-14 15:16 | Inpatient (IN) | payer MEDICAID ==
[~2016-12-14] VITALS: Ht 170.2 cm; Wt 67.6 kg
[~2016-12-14 15:16] MED LIST changes: +INSU300I SQ; +PAMI30VI8 SQ; +SULF1TAB35 PO
[2016-12-14] MEDS ORDERED: HYDROcodone/APAP 7.5 MG/325 MG (LORTAB, LORCET PLUS) TABLET PO STA (17:06)
--- NOTE | 2016-12-14 17:51 | Diagnostic Imaging Report ---
INDICATION: Swelling in right foot. EXAMINATION: AP, oblique and lateral views of the right foot were obtained. COMPARISON: 11/29/16. FINDINGS: The patient has had amputation of the second digit at the level of the distal aspect of the proximal phalanx. There is again noted to be a destructive change with sclerosis and fragmentation in the distal aspect of the first proximal phalanx. There is also worsening and destructive change in the distal aspect of the third metatarsal and some early lucency in the distal aspect of the fourth metatarsal. Remaining structures appear intact. IMPRESSION: Status post second toe amputation. Unchanged destructive bony findings in the first proximal phalanx. Worsening areas of lucency and early bony erosion in the distal aspects of the third and fourth metatarsals. Dictated by: Dictated on workstation # [id number]
[2016-12-14 17:58] LABS: BILIRUBIN,URINE NEGATIVE (NEGATIVE); KETONES,URINE NEGATIVE (NEGATIVE); LEUKOCYTE ESTERASE ,URINE 2+ (NEGATIVE); NITRITE,URINE POSITIVE (NEGATIVE); PH,URINE 5 (5-9); PROTEIN,URINE 1+ (NEGATIVE); UROBILINOGEN,URINE NORMAL (NORMAL)
[2016-12-14 18:13] LABS: BASOPHILS # (AUTO) 0.1 10^3/uL (0.0-0.1); BASOPHILS % (AUTO) 1 % (0-10); EOSINOPHILS # (AUTO) 0.3 10^3/uL (0.0-0.3); EOSINOPHILS % (AUTO) 5 % (0-10); LYMPHOCYTES # (AUTO) 1.8 X 10^3 (1.0-4.0); LYMPHOCYTES % (AUTO) 27 % (12-44); MEAN CORPUSCULAR HEMOGLOBIN 23 PG (25-34); MEAN CORPUSCULAR HGB CONC 31 G/DL (32-36); MEAN CORPUSCULAR VOLUME 75 FL (80-99); MONOCYTES # (AUTO) 0.9 X 10^3 (0.0-1.0); MONOCYTES % (AUTO) 13 % (0-12); NEUTROPHILS # (AUTO) 3.8 X 10^3 (1.8-7.8); NEUTROPHILS % (AUTO) 55 % (42-75); PLATELET COUNT 362 10^3/uL (130-400); RED BLOOD COUNT 3.98 10^6/uL (4.35-5.85); RED CELL DISTRIBUTION WIDTH 16.5 % (10.0-14.5)
[2016-12-14 18:17] LABS: SQUAMOUS EPITHELIAL CELL,UR 0-2 /HPF
--- NOTE | 2016-12-14 18:19 | ED Lower Extremity ---
General Chief Complaint: Skin/Wound Problems Stated Complaint: RT FOOT SWELLING Nursing Triage Note: c/o R foot swelling, reports had toe amputated 2 months ago Nursing Sepsis Screen: No Definite Risk History of Present Illness Time seen by provider: 17:00 Initial Comments Patient reports increased right foot pain. On November 082016 she had the distal aspect of the second right toe amputated by Dr. Coello.. She's had no follow-up with him since dismissal from the hospital. On November 29 she was treated for cellulitis of the right foot with oral antibiotics. 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 She had previously been on an insulin pump, she recently changed and has been having a difficult time maintaining her blood sugars. Severity: moderate Pain/Injury Location: left foot Method of Injury: unknown Modifying Factors: Improves With Pain Medication, Improves With Rest Allergies and Home Medications Allergies Coded Allergies: No Known Drug Allergies (Unverified , 10/22/16) Home Medications Buspirone HCl 15 Mg Tablet, 30 MG PO TID, (Reported) LAST FILLED #[id number] 09-11-16 TAKES 2 (15MG) TABLETS Gabapentin 800 Mg Tablet, 800 MG PO TID, (Reported) Hydroxyzine Pamoate 50 Mg Capsule, 50 MG PO TID, (Reported) Insulin Glargine,Hum.rec.anlog 300 Unit/1 Ml Insuln.pen, 30 UNIT SQ HS, ( Reported) Insulin Lispro 100 Unit/1 Ml Cartridge, 100 UNIT SQ, (Reported) Naproxen 500 Mg Tablet, 500 MG PO BID, (Reported) Paroxetine HCl 20 Mg Tablet, 20 MG PO DAILY, #30 Ref 0 Prescribed by: MENA TONEY on 10/25/16 4904 Constitutional: no symptoms reported, see HPI EENTM: no symptoms reported, see HPI Respiratory: no symptoms reported, see HPI Cardiovascular: no symptoms reported, see HPI Gastrointestinal: no symptoms reported, see HPI Genitourinary: no symptoms reported, see HPI Musculoskeletal: see HPI, joint pain, muscle pain Skin: no symptoms reported, see HPI Psychiatric/Neurological: No Symptoms Reported, See HPI Past Psopflt-Btztzi-Wkzlku Hx Patient Social History Alcohol Use: Denies Use Recreational Drug Use: No Smoking Status: Current Someday Smoker Type Used: Cigarettes 2nd Hand Smoke Exposure: No Recent Foreign Travel: No Contact w/Someone Who Travel: No Recent Infectious Disease Expo: No Recent Hopitalizations: No Immunizations Up To Date Tetanus Booster (TDap): Unknown PED Vaccines UTD: No Date of Influenza Vaccine: Jul 03, 2016 Seasonal Allergies Seasonal Allergies: No Surgeries HX Surgeries: Yes (OPEN HEART SX AN INFANT) Surgeries: Cardiac, Section, Orthopedic Respiratory Hx Respiratory Disorders: No Cardiovascular Hx Cardiac Disorders: Yes (CARDIAC SURGERY AN ) Neurological Hx Neurological Disorders: Yes Neurological Disorders: Neuropathy, Seizure Disorder Genitourinary Hx Genitourinary Disorders: No Gastrointestinal Hx Gastrointestinal Disorders: Yes (CELIAC DISEASE) Musculoskeletal Hx Musculoskeletal Disorders: Yes (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) Endocrine Hx Endocrine Disorders: Yes (PT HAS INSULIN PUMP) Endocrine Disorders: Diabetes, Insulin dep HEENT HX ENT Disorders: No Loss of Vision: Denies Hearing Impairment: Denies Cancer Hx Cancer: No Psychosocial Hx Psychiatric Problems: Yes Behavioral Health Disorders: Anxiety Integumentary HX Skin/Integumentary Disorder: No Blood Transfusions Hx Blood Disorders: Yes (HEP C+) Family Medical History Significant Family History: No Pertinent Family Hx Physical Exam Vital Signs Vital Sign - Last 12Hours 12/14/16 15:23 Temp 98.7 Pulse 96 Resp 18 B/P (MAP) 125/83 Pulse Ox 98 O2 Delivery Room Air Capillary Refill : Less Than 3 Seconds General Appearance: WD/WN, no apparent distress HEENT: PERRL/EOMI, normal ENT inspection, TMs normal, pharynx normal Neck: non-tender, full range of motion, normal inspection Cardiovascular: normal peripheral pulses, regular rate, rhythm, no JVD, no murmur Respiratory: chest non-tender, lungs clear, normal breath sounds Gastrointestinal: normal bowel sounds, non tender, soft Back: normal inspection, no CVA tenderness, no vertebral tenderness Ankles: bilateral ankle non-tender, bilateral ankle normal inspection, bilateral ankle normal range of motion, bilateral ankle no evidence of injury Feet: right foot limited range of motion, right foot pain (mainly on the medial aspect), right foot soft tissue tenderness (over the medial aspect), right foot other (peripheral pulses 1+ bilaterally, cap refill less than 3 seconds. Sensation intact bilateral lower extremities) Neurologic/Tendon: normal sensation, normal motor functions, normal tendon functions, responds to pain Neurologic/Psychiatric: no motor/sensory deficits, alert, normal mood/affect, oriented x 3 Progress/Results/Core Measures Results/Orders Lab Results Laboratory Tests Test 12/14/16 17:50 12/14/16 18:00 Range/Units Urine Color YELLOW Urine Clarity SLIGHTLY CLOUDY Urine pH 5 5-9 Urine Specific [place] 1.015 L 1.016-1.022 Urine Protein 1+ H NEGATIVE Urine Glucose (UA) NEGATIVE NEGATIVE Urine Ketones NEGATIVE NEGATIVE Urine Nitrite POSITIVE H NEGATIVE Urine Bilirubin NEGATIVE NEGATIVE Urine Urobilinogen NORMAL NORMAL MG/DL Urine Leukocyte Esterase 2+ H NEGATIVE Urine RBC (Auto) 1+ H NEGATIVE Urine RBC 0-2 /HPF Urine WBC 10-25 H /HPF Urine Squamous Epithelial Cells 0-2 /HPF Urine Crystals NONE /LPF Urine Bacteria MODERATE H /HPF Urine Casts NONE /LPF Urine Mucus NEGATIVE /LPF Urine Culture Indicated YES Urine Opiates Screen NEGATIVE NEGATIVE Urine Oxycodone Screen NEGATIVE NEGATIVE Urine Methadone Screen NEGATIVE NEGATIVE Urine Propoxyphene Screen NEGATIVE NEGATIVE Urine Barbiturates Screen NEGATIVE NEGATIVE Ur Tricyclic Antidepressants Screen NEGATIVE NEGATIVE Urine Phencyclidine Screen NEGATIVE NEGATIVE Urine Amphetamines Screen POSITIVE H NEGATIVE Urine Methamphetamines Screen NEGATIVE NEGATIVE Urine Benzodiazepines Screen NEGATIVE NEGATIVE Urine Cocaine Screen NEGATIVE NEGATIVE Urine Cannabinoids Screen NEGATIVE NEGATIVE White Blood Count 7.0 4.3-11.0 10^3/uL Red Blood Count 3.98 L 4.35-5.85 10^6/uL Hemoglobin 9.3 L 11.5-16.0 G/DL Hematocrit 30 L 35-52 % Mean Corpuscular Volume 75 L 80-99 FL Mean Corpuscular Hemoglobin 23 L 25-34 PG Mean Corpuscular Hemoglobin Concent 31 L 32-36 G/DL Red Cell Distribution Width 16.5 H 10.0-14.5 % Platelet Count 362 130-400 10^3/uL Mean Platelet Volume 11.0 H 7.4-10.4 FL Neutrophils (%) (Auto) 55 42-75 % Lymphocytes (%) (Auto) 27 12-44 % Monocytes (%) (Auto) 13 H 0-12 % Eosinophils (%) (Auto) 5 0-10 % Basophils (%) (Auto) 1 0-10 % Neutrophils # (Auto) 3.8 1.8-7.8 X 10^3 Lymphocytes # (Auto) 1.8 1.0-4.0 X 10^3 Monocytes # (Auto) 0.9 0.0-1.0 X 10^3 Eosinophils # (Auto) 0.3 0.0-0.3 10^3/uL Basophils # (Auto) 0.1 0.0-0.1 10^3/uL Erythrocyte Sedimentation Rate 36 H 0-20 MM/HR Sodium Level 138 135-145 MMOL/L Potassium Level 5.4 H 3.6-5.0 MMOL/L Chloride Level 112 H 98-107 MMOL/L Carbon Dioxide Level 17 L 21-32 MMOL/L Anion Gap 9 5-14 MMOL/L Blood Urea Nitrogen 24 H 7-18 MG/DL Creatinine 1.20 0.60-1.30 MG/DL Estimat Glomerular Filtration Rate 52 BUN/Creatinine Ratio 20 Glucose Level 238 H 70-105 MG/DL Calcium Level 8.1 L 8.5-10.1 MG/DL Total Bilirubin 0.1 0.1-1.0 MG/DL Aspartate Amino Transf (AST/SGOT) 22 5-34 U/L Alanine Aminotransferase (ALT/SGPT) 26 0-55 U/L Alkaline Phosphatase 173 H 40-136 U/L C-Reactive Protein High Sensitivity 0.46 0.00-0.50 MG/DL Total Protein 6.7 6.4-8.2 G/DL Albumin 3.4 3.2-4.5 G/DL My Orders Orders - VANDANADANIEL Cho 45g/M 0snack (12-1500 Caden) (12/14/16 Dinner) Cbc With Automated Diff (12/14/16 17:06) Comprehensive Metabolic Panel (12/14/16 17:06) Hs C Reactive Protein (12/14/16 17:06) Ua Culture If Indicated (12/14/16 17:06) Erythrocyte Sedimentation Rate (12/14/16 17:06) Hydrocodone/Apap 7.5/325 Tab (Lortab 7. (12/14/16 17:06) Foot, Right, 3 View (12/14/16 17:09) Urine Culture (12/14/16 17:50) Wound Culture (12/14/16 18:30) Doxycycline Hyclate Tablet (Vibramycin T (12/14/16 18:37) Sulfamethoxazole/Trimet Ds Tab (Bactrim (12/14/16 18:45) Saline Lock/Iv-Start (12/14/16 18:51) Ns Iv 1000 Ml (Sodium Chloride 0.9%) (12/14/16 18:51) Ketorolac Injection (Toradol Injection) (12/14/16 19:06) Ketorolac Injection (Toradol Injection) (12/14/16 19:24) Drug Screen Stat (Urine) (12/14/16 19:47) Blood Culture (12/14/16 19:54) Lactic Acid Analyzer (12/14/16 19:54) Morphine Injection (Morphine Injection (12/14/16 20:10) Medications Given in ED Current Medications Medications Dose Ordered Sig/Dipti Route Start Time Stop Time Status Last Admin Dose Admin Sodium Chloride 1,000 ml @ 0 mls/hr Q0M ONCE IV 12/14/16 18:51 12/14/16 18:57 DC 12/14/16 19:01 0 MLS/HR Trimethoprim/ Sulfamethoxazole 1 ea ONCE ONCE PO 12/14/16 18:45 12/14/16 18:46 DC 12/14/16 19:01 1 EA Vital Signs/I&O Vital Sign - Last 12Hours 12/14/16 15:23 Temp 98.7 Pulse 96 Resp 18 B/P (MAP) 125/83 Pulse Ox 98 O2 Delivery Room Air Blood Pressure Mean: 97 Progress Note : Time: 18:00 Progress Note Initial evaluation completed, recommended labs and x-rays of the right foot. WBC 7.0, hemoglobin 9.3, hematocrit 30, platelets 362, ESR 36, potassium 5.4, chloride 112, carbon dioxide 17, BUN 24, creatinine 1.2, estimated GFR 52, glucose 238, lactic acid 1.08, C-reactive protein 0.46, alkaline phosphatase 173. UA positive for urinary tract infection, ketones negative, nitrates positive, 2+ leukocyte Estrace, 1+ RBC, 10-25 WBCs, moderate bacteria. Urine culture pending. Hydrocodone/APAP 5/325mg po for pain 1830 Doxycycline 100 mg by mouth and Bactrim DS 1 tablet by mouth 1850 normal saline 1 L IV. 1899 Amphetamine screen positive. Toradol 30 mg IV for pain 1929 Discussed with patient the results of for foot x-ray, which show osteomyelitis with any distraction of the first metatarsal. 1999 discussed the patient's findings with Dr. Jay, recommended admission for treatment of osteomyelitis. Will start vancomycin 1 g IV. Admission orders written. 2009 morphine 5 mg IV for pain. Diagnostic Imaging Diagonstic Imaging: Xray Plain Films/CT/US/NM/MRI: other (Foot, right) Comments NAME: HUONG ARANGO [facility] REC#: [id number] PT STATUS: REG ER : 1985 PHYSICIAN: DANIEL ROSS ADMIT DATE: 12/14/16/ER Signed Date of Exam: 12/14/16 FOOT, RIGHT, 3 VIEW INDICATION: Swelling in right foot. EXAMINATION: AP, oblique and lateral views of the right foot were obtained. COMPARISON: 11/29/16. FINDINGS: The patient has had amputation of the second digit at the level of the distal aspect of the proximal phalanx. There is again noted to be a destructive change with sclerosis and fragmentation in the distal aspect of the first proximal phalanx. There is also worsening and destructive change in the distal aspect of the third metatarsal and some early lucency in the distal aspect of the fourth metatarsal. Remaining structures appear intact. IMPRESSION: Status post second toe amputation. Unchanged destructive bony findings in the first proximal phalanx. Worsening areas of lucency and early bony erosion in the distal aspects of the third and fourth metatarsals. Dictated by: Dictated on workstation # [id number] <Dictated by TIMO RUSSELL MD> 12/14/16 1753 Departure Impression Impression: Primary Impression: Osteomyelitis of metatarsal Additional Impression: Urinary tract infection Qualified Codes: N30.00 - Acute cystitis without hematuria Disposition: ADMITTED INPATIENT Condition: Stable Decision to Admit Reason: Admit from ER (General) Time/Decision to Admit Time: 19:30 Departure-Patient Inst. Referrals: NO,LOCAL PHYSICIAN (PCP/Family) Primary Care Physician DANIEL ROSS Dec 14, 2016 18:19
[2016-12-14 18:28] LABS: ALBUMIN 3.4 G/DL (3.2-4.5); BILIRUBIN,TOTAL 0.1 MG/DL (0.1-1.0); CALCIUM 8.1 MG/DL (8.5-10.1); CREATININE SERUM 1.2 MG/DL (0.60-1.30); POTASSIUM 5.4 MMOL/L (3.6-5.0); TOTAL PROTEIN 6.7 G/DL (6.4-8.2); hs C REACTIVE PROTEIN 0.46 MG/DL (0.00-0.50)
[2016-12-14] MEDS ORDERED: DOXYCYCLINE 100 MG (VIBRAMYCIN) TABLET PO STA (18:37)
[2016-12-14] MEDS ORDERED: TRIM/SULFAMETH 160/800 (SEPTRA DS) TAB PO ONE (18:45)
[2016-12-14] MEDS ORDERED: NS IV 1000 ML 1,000 ML IV ONE (18:51)
[2016-12-14 18:54] LABS: ERYTHROCYTE SEDIMENTATION RATE 36 MM/HR (0-20)
[2016-12-14] MEDS ORDERED: KETOROLAC 60 MG/2 ML VIAL IM STA (19:06)
[2016-12-14] MEDS ORDERED: KETOROLAC 30 MG/ML VIAL IVP STA (19:24)
[2016-12-14] MEDS ORDERED: morphine INJ 10 MG/ML 1ML (SYR OR VIAL) IVP STA (20:10)
[2016-12-14] MEDS ORDERED: NS IV 1000 ML 1,000 ML ONE (21:21)
[2016-12-14] MEDS ORDERED: VANCOMYCIN 1000 MG/VIAL ONE (21:21)
[2016-12-14] MEDS ORDERED: NS (IVPB) 250 ML ONE (21:21)
[2016-12-14] MEDS ORDERED: VANCOMYCIN 1 GM/NS 250 ML IVPB IV SCH ×2 (21:30)
[2016-12-14] MEDS ORDERED: CATHETER FLUSH 10 ML SYR IV PRN (21:45)
[2016-12-14] MEDS: NS IV 1000 ML 1,000 ML IV SCH (21:45)
[2016-12-14] MEDS ORDERED: NICOTINE 14 MG (NICODERM) PATCH TD ONE (21:56)
[2016-12-14] MEDS: CATHETER FLUSH 10 ML SYR IV SCH (22:00)
[2016-12-14] MEDS: ACETAMINOPHEN 325 MG TABLET/CAPLET (TYLENOL) PO PRN (22:26)
[2016-12-14] MEDS ORDERED: RT-ALBUTEROL SULF 2.5 MG/3 ML PRE-MIX VIAL IH PRN (22:45)
[2016-12-14] MEDS: morphine INJ 4 MG/ML 1 ML (VIAL/SYRINGE) IV PRN (23:39)
[2016-12-15 00:23] VITALS: BP 112/75
[2016-12-15 04:00] VITALS: BP 111/77
[2016-12-15] MEDS: morphine INJ 4 MG/ML 1 ML (VIAL/SYRINGE) IV PRN ×5 (05:05→22:24)
[2016-12-15] MEDS: CATHETER FLUSH 10 ML SYR IV SCH ×3 (05:07→20:54)
[2016-12-15 05:13] LABS: BASOPHILS # (AUTO) 0.1 10^3/uL (0.0-0.1); BASOPHILS % (AUTO) 1 % (0-10); EOSINOPHILS # (AUTO) 0.2 10^3/uL (0.0-0.3); EOSINOPHILS % (AUTO) 4 % (0-10); LYMPHOCYTES # (AUTO) 2.4 X 10^3 (1.0-4.0); LYMPHOCYTES % (AUTO) 41 % (12-44); MEAN CORPUSCULAR HEMOGLOBIN 23 PG (25-34); MEAN CORPUSCULAR HGB CONC 30 G/DL (32-36); MEAN CORPUSCULAR VOLUME 76 FL (80-99); MEAN PLATELET VOLUME 10.6 FL (7.4-10.4); MONOCYTES # (AUTO) 0.6 X 10^3 (0.0-1.0); MONOCYTES % (AUTO) 10 % (0-12); NEUTROPHILS # (AUTO) 2.5 X 10^3 (1.8-7.8); NEUTROPHILS % (AUTO) 43 % (42-75); PLATELET COUNT 316 10^3/uL (130-400); RED BLOOD COUNT 3.62 10^6/uL (4.35-5.85); RED CELL DISTRIBUTION WIDTH 16.8 % (10.0-14.5); WHITE BLOOD COUNT 5.7 10^3/uL (4.3-11.0)
[2016-12-15 05:37] LABS: ALBUMIN 2.9 G/DL (3.2-4.5); BILIRUBIN,TOTAL 0.1 MG/DL (0.1-1.0); CALCIUM 7.7 MG/DL (8.5-10.1); CREATININE SERUM 1.12 MG/DL (0.60-1.30); TOTAL PROTEIN 5.7 G/DL (6.4-8.2)
[2016-12-15 05:39] LABS: POTASSIUM 5.9 MMOL/L (3.6-5.0)
[2016-12-15 08:00] VITALS: BP 100/73
[2016-12-15] MEDS: PATCH REMOVAL TP SCH (08:34)
[2016-12-15] MEDS: NICOTINE 14 MG (NICODERM) PATCH TD SCH (08:34)
[2016-12-15] MEDS ORDERED: INSU100I23 SQ (08:59)
[2016-12-15] MEDS ORDERED: PARO20TA5 PO (08:59)
[2016-12-15] MEDS ORDERED: NAPR500T3 PO (08:59)
[2016-12-15] MEDS: VANCOMYCIN 1 GM/NS 250 ML IVPB IV SCH ×4 (09:11→20:33)
[2016-12-15] MEDS ORDERED: OMEP40CA36 PO (10:11)
[2016-12-15] MEDS ORDERED: INSU100I32 SQ (10:11)
[2016-12-15] MEDS ORDERED: LISI-556 PO (10:18)
--- NOTE | 2016-12-15 10:41 | History & Physicial (CHS) ---
HPI History of Present Illness: Patient came to ER due to foot pain in right foot for the last 3-5 days. She had second toe distal amputation 2 months ago for osteomyelitis. She has a wound at the base of her big toe, but has pain across her whole foot and swelling in her forefoot that prompted her visit. She denies fever. She has felt nauseated and has had nasal congestion and sore throat. She has a history of substance abuse and recently went through a rehab program, she does note she relapsed once a month ago after her ex-boyfriend committed suicide, states that was her last use. She has plans to go to a 9 month program in [place] next week and is hopeful to get out of the hospital in time to go. She has type I diabetes and admits she has not been using her mealtime insulin as much as she should. She used to have a pump, but is on Tresiba and sliding scale based on carb counting as well as correction factor. She says she would to talk to Tamar Westbrook (inclusion paraeducator) at [facility] about the Tresiba because she doesn't like it very well. Date seen by provider: Dec 15, 2016 Time seen by provider: 09:30 Attending Physician Katherine Jay MD PCP [facility] Consult Date of Admission Dec 14, 2016 at 8:32 pm Home Medications Home Medications Reviewed patient Home Medication Reconciliation Form Allergies Coded Allergies: No Known Drug Allergies (Unverified , 10/22/16) CAB-Sykwgq-Zytgak Hx Patient Social History Alcohol Use: Denies Use Recreational Drug Use: No (past history methamphetamine, last use 10/2016) Smoking Status: Current Someday Smoker Type Used: Cigarettes 2nd Hand Smoke Exposure: No Recent Foreign Travel: No Contact w/other who traveled: No Recent Hopitalizations: No Recent Infectious Disease Expo: No Physical Abuse Screen: No Sexual Abuse: No Immunizations Up To Date Tetanus Booster (TDap): Unknown Date of Influenza Vaccine: Jul 03, 2016 Past Medical History PMHx: DMI Anxiety/depression Substance abuse Hepatitis C Neuropathy Microalbuminuria PSurgHx: Right second toe distal amputation Heart surgery as a Family Medical History Significant Family History: No Pertinent Family Hx Family History: Review of Systems ([facility]) Constitutional: No fever EENTM: nose congestion, throat pain Respiratory: cough, No short of breath Cardiovascular: No chest pain Gastrointestinal: No abdominal pain, No constipation, diarrhea, nausea, No vomiting Genitourinary: no symptoms reported Musculoskeletal: see HPI Skin: see HPI Psychiatric/Neurological: No Symptoms Reported Reviewed Test Results Reviewed Test Results Lab Laboratory Tests Test 12/14/16 17:50 12/14/16 18:00 12/14/16 20:39 12/15/16 04:50 Range/Units Urine Color YELLOW Urine Clarity SLIGHTLY CLOUDY Urine pH 5 5-9 Urine Specific [place] 1.015 L 1.016-1.022 Urine Protein 1+ H NEGATIVE Urine Glucose (UA) NEGATIVE NEGATIVE Urine Ketones NEGATIVE NEGATIVE Urine Nitrite POSITIVE H NEGATIVE Urine Bilirubin NEGATIVE NEGATIVE Urine Urobilinogen NORMAL NORMAL MG/DL Urine Leukocyte Esterase 2+ H NEGATIVE Urine RBC (Auto) 1+ H NEGATIVE Urine RBC 0-2 /HPF Urine WBC 10-25 H /HPF Urine Squamous Epithelial Cells 0-2 /HPF Urine Crystals NONE /LPF Urine Bacteria MODERATE H /HPF Urine Casts NONE /LPF Urine Mucus NEGATIVE /LPF Urine Culture Indicated YES Urine Opiates Screen NEGATIVE NEGATIVE Urine Oxycodone Screen NEGATIVE NEGATIVE Urine Methadone Screen NEGATIVE NEGATIVE Urine Propoxyphene Screen NEGATIVE NEGATIVE Urine Barbiturates Screen NEGATIVE NEGATIVE Ur Tricyclic Antidepressants Screen NEGATIVE NEGATIVE Urine Phencyclidine Screen NEGATIVE NEGATIVE Urine Amphetamines Screen POSITIVE H NEGATIVE Urine Methamphetamines Screen NEGATIVE NEGATIVE Urine Benzodiazepines Screen NEGATIVE NEGATIVE Urine Cocaine Screen NEGATIVE NEGATIVE Urine Cannabinoids Screen NEGATIVE NEGATIVE White Blood Count 7.0 5.7 4.3-11.0 10^3/uL Red Blood Count 3.98 L 3.62 L 4.35-5.85 10^6/uL Hemoglobin 9.3 L 8.4 L 11.5-16.0 G/DL Hematocrit 30 L 28 L 35-52 % Mean Corpuscular Volume 75 L 76 L 80-99 FL Mean Corpuscular Hemoglobin 23 L 23 L 25-34 PG Mean Corpuscular Hemoglobin Concent 31 L 30 L 32-36 G/DL Red Cell Distribution Width 16.5 H 16.8 H 10.0-14.5 % Platelet Count 362 316 130-400 10^3/uL Mean Platelet Volume 11.0 H 10.6 H 7.4-10.4 FL Neutrophils (%) (Auto) 55 43 42-75 % Lymphocytes (%) (Auto) 27 41 12-44 % Monocytes (%) (Auto) 13 H 10 0-12 % Eosinophils (%) (Auto) 5 4 0-10 % Basophils (%) (Auto) 1 1 0-10 % Neutrophils # (Auto) 3.8 2.5 1.8-7.8 X 10^3 Lymphocytes # (Auto) 1.8 2.4 1.0-4.0 X 10^3 Monocytes # (Auto) 0.9 0.6 0.0-1.0 X 10^3 Eosinophils # (Auto) 0.3 0.2 0.0-0.3 10^3/uL Basophils # (Auto) 0.1 0.1 0.0-0.1 10^3/uL Erythrocyte Sedimentation Rate 36 H 0-20 MM/HR Sodium Level 138 135-145 MMOL/L Potassium Level 5.4 H 3.6-5.0 MMOL/L Chloride Level 112 H 98-107 MMOL/L Carbon Dioxide Level 17 L 21-32 MMOL/L Anion Gap 9 5-14 MMOL/L Blood Urea Nitrogen 24 H 7-18 MG/DL Creatinine 1.20 0.60-1.30 MG/DL Estimat Glomerular Filtration Rate 52 BUN/Creatinine Ratio 20 Glucose Level 238 H 70-105 MG/DL Calcium Level 8.1 L 8.5-10.1 MG/DL Total Bilirubin 0.1 0.1-1.0 MG/DL Aspartate Amino Transf (AST/SGOT) 22 5-34 U/L Alanine Aminotransferase (ALT/SGPT) 26 0-55 U/L Alkaline Phosphatase 173 H 40-136 U/L C-Reactive Protein High Sensitivity 0.46 0.00-0.50 MG/DL Total Protein 6.7 6.4-8.2 G/DL Albumin 3.4 3.2-4.5 G/DL Lactic Acid Level 1.08 0.50-2.00 MMOL/L Test 12/15/16 04:55 Range/Units Sodium Level 136 135-145 MMOL/L Potassium Level 5.9 H 3.6-5.0 MMOL/L Chloride Level 113 H 98-107 MMOL/L Carbon Dioxide Level 17 L 21-32 MMOL/L Anion Gap 6 5-14 MMOL/L Blood Urea Nitrogen 22 H 7-18 MG/DL Creatinine 1.12 0.60-1.30 MG/DL Estimat Glomerular Filtration Rate 56 BUN/Creatinine Ratio 20 Glucose Level 262 H 70-105 MG/DL Calcium Level 7.7 L 8.5-10.1 MG/DL Total Bilirubin 0.1 0.1-1.0 MG/DL Aspartate Amino Transf (AST/SGOT) 17 5-34 U/L Alanine Aminotransferase (ALT/SGPT) 22 0-55 U/L Alkaline Phosphatase 142 H 40-136 U/L Total Protein 5.7 L 6.4-8.2 G/DL Albumin 2.9 L 3.2-4.5 G/DL Radiology Right foot x-ray: "IMPRESSION: Status post second toe amputation. Unchanged destructive bony findings in the first proximal phalanx. Worsening areas of lucency and early bony erosion in the distal aspects of the third and fourth metatarsals." Physical Exam-([facility]) Physical Exam Vital Signs VS - Last 72 Hours, by Label 12/14/16 12/14/16 12/14/16 12/15/16 15:23 20:59 22:34 00:23 Temp 98.7 97.4 Pulse 96 88 90 Resp 18 18 20 B/P (MAP) 125/83 112/75 Pulse Ox 98 99 98 100 O2 Delivery Room Air Room Air 12/15/16 12/15/16 12/15/16 12/15/16 04:00 06:50 08:00 08:53 Temp 98.3 98.6 Pulse 91 84 Resp 20 16 B/P (MAP) 111/77 100/73 Pulse Ox 98 93 97 O2 Delivery Room Air Room Air Room Air Capillary Refill : Less Than 3 Seconds General Appearance: no apparent distress Respiratory: lungs clear, normal breath sounds Cardiovascular: regular rate, rhythm Peripheral Pulses: 2+ Dorsalis Pedis (R), 2+ Left Dors-Pedis (L) Gastrointestinal: normal bowel sounds, non tender, soft Extremities: no pedal edema, other (mild edema over right forefoot, markedly tender to touch) Neurologic/Psychiatric: alert, normal mood/affect Skin: other (Ulceration at first metatarsal head medially about 1.5 cm with white base about 2 mm deep and serous drainage, no erythema or purulence, no tunneling noted) Assessment/Plan Assessment/Plan Admission Dx 1. Diabetic foot wound with worsening 3rd and 4th metatarsal head bony destructive changes with recent second digit distal amputation 2. Hyperkalemia 3. UTI 4. DMI 5. Anxiety 6. Peripheral neuropathy 7. Microalbuminuria 8. Substance abuse history Plan 1. Diabetic foot wound with worsening 3rd and 4th metatarsal head bony destructive changes with recent second digit distal amputation -Dr Tinajero consulted appreciate recommendations -Wound culture prelim with MRSA, continue vancomycin for now, add ceftriaxone for gram negative coverage 2. Hyperkalemia- unclear etiology, hold lisinopril and monitor 3. UTI- awaiting culture, ceftriaxone 4. DMI- resume home insulin degludec Blood sugar q6 while NPO Diabetic diet when able to eat Sliding scale insulin as needed 5. Anxiety- resume home paroxetine and hydroxyzine, hold buspirone as already on multiple meds and was above max dose, if restarted will need lower dose 6. Peripheral neuropathy- resume home gabapentin 7. Microalbuminuria- hold home lisinopril due to hyperkalemia 8. Substance abuse history- plans for continued rehab in place, will consult social work to coordinate with treatment facility to try to hold her spot if she is unable to be discharged soon enough to make it there Sunday. DVT ppx- SCDs, enoxaparin if not having surgery today Diagnosis/Problems: Clinical Quality Measures DVT/VTE Risk/Contraindication: Risk Factor Score Per Nursin RFS Level Per Nursing on Admit: 3=High Copy Copies To 1: LUIS Tamayo BETHANY N MD Dec 15, 2016 10:41 am
[2016-12-15] MEDS ORDERED: hydrOXYzine (VISTARIL) 25 MG CAP PO PRN (11:00)
[2016-12-15] MEDS ORDERED: inSUlin ASPART (NovoLOG) 1 UNIT/0.01 ML (CHARGE PER UNIT) SC SCH (11:00)
[2016-12-15] MEDS ORDERED: ENOXAPARIN 40 MG/0.4 ML (LOVENOX) SYR SC SCH (11:00)
[2016-12-15] MEDS ORDERED: LEVOFLOXACIN 750 MG/150 ML IV 150 ML IV SCH (11:00)
[2016-12-15] MEDS: NAPROXEN 250 MG (NAPROSYN) TABLET PO SCH ×2 (11:07→16:14)
[2016-12-15 11:15] LABS: ANION GAP 6 MMOL/L (5-14); BLOOD UREA NITROGEN 21 MG/DL (7-18); BUN/CREATININE RATIO 20; CARBON DIOXIDE 20 MMOL/L (21-32); CHLORIDE 113 MMOL/L (98-107); CREATININE SERUM 1.04 MG/DL (0.60-1.30); GFR ESTIMATED > 60; GLUCOSE 149 MG/DL (70-105); POTASSIUM 5.5 MMOL/L (3.6-5.0); SODIUM 139 MMOL/L (135-145)
[2016-12-15] MEDS: cefTRIAXone INJECTION 1,000 MG in NS (IVPB) 50 ML IV SCH (11:46)
[2016-12-15] MEDS: GABAPENTIN 400 MG (NEURONTIN) CAP PO SCH ×2 (11:46→20:33)
[2016-12-15 12:00] VITALS: BP 116/80
[2016-12-15] MEDS: NS IV 1000 ML 1,000 ML IV SCH ×2 (13:04→16:14)
[2016-12-15] MEDS ORDERED: GADOBUTROL 7.5 MMOL/7.5 ML (GADAVIST) VIAL IV ONE (15:00)
[2016-12-15 15:45] VITALS: BP 123/83
[2016-12-15] MEDS: inSUlin ASPART (NovoLOG) 1 UNIT/0.01 ML (CHARGE PER UNIT) SC SCH ×2 (16:01→19:53)
--- NOTE | 2016-12-15 17:28 | Podiatry Progress Note ---
Standard Progress Note Progress Notes/Assess & Plan Progress/Assessment & Plan Consult dictated Awaiting results of MRI. Likely osteomyelitis of the right hallux and 3rd and 4th metatarsals. Final Diagnosis Diabetic Neuropathy Diabetic ulceration right foot (MRSA) Likely Osteomyelitis right foot BROOKS GARZA DPM Dec 15, 2016 17:28
--- NOTE | 2016-12-15 17:46 | Diagnostic Imaging Report ---
EXAM: MRI of the right foot without contrast. DATE: December 15, 2016. INDICATION: 31-year-old female, infection in the region of the second toe. COMPARISON: Radiographs of the right foot December 14, 2012. TECHNIQUE: Multiple MRI sequences of the right foot were obtained without contrast. FINDINGS: There is loss of normal T1 marrow signal and bone destruction of the distal aspect of the first proximal phalanx compatible with osteomyelitis. There is absence of the second digit middle and distal phalanges. The remaining distal aspect of the second proximal phalanx is indistinct with loss of normal T1 marrow signal also likely relating to findings of osteomyelitis of the very distal aspect of the second proximal phalanx. There is loss of normal T1 marrow signal in the distal phalanx of the fifth digit best seen on sagittal T1 sequence image 19 which does raise concern for osteomyelitis at this location as well. Recommend correlation for associated skin findings at this level. There is enhancement of the soft tissues at the level of the first, second, third, fourth, and fifth digits. Areas of abnormal enhancement at the levels of the second through fourth digits do extend at least to the level of the proximal metatarsals. There is no well-visualized focal drainable fluid collection or abscess. There is a mild loss of normal T1 marrow signal in the distal aspect of the second metatarsal. There is a minimally displaced fracture of the second metacarpal head and neck with fluid-filled fracture gap. There is patchy abnormal signal in the third metatarsal extending from the level of the proximal metadiaphysis to its distal aspect. There is altered contour of the fourth metatarsal head which is also likely fractured with loss of the normal marrow signal and abnormal contrast enhancement extending to the level of the base of the fourth metatarsal. IMPRESSION: 1. Findings compatible with osteomyelitis involving the distal aspect of the first proximal phalanx and distal aspect of the second proximal phalanx. 2. Prominent areas of extensive abnormal soft tissue enhancement which may potentially reflect cellulitis. No identified focal drainable fluid collection or abscess. 3. Fractures of the third and fourth metatarsal heads. There are signal alterations of the second through fourth metatarsals which are nonspecific. These potentially could relate to the fractures and/or stress-related marrow changes although osteomyelitis of these bones would be difficult to completely exclude. Dictated by: Dictated on workstation # [id number]
[2016-12-15] MEDS: SILVER SULFADIAZINE 50 GM CREAM TOP SCH (17:51)
[2016-12-15 19:50] VITALS: BP 111/65
[2016-12-15] MEDS: ACETAMINOPHEN 325 MG TABLET/CAPLET (TYLENOL) PO PRN (20:32)
[2016-12-16] VITALS: BP 130/82
[2016-12-16] MEDS: CATHETER FLUSH 10 ML SYR IV SCH ×3 (05:28→20:25)
[2016-12-16] MEDS: inSUlin ASPART (NovoLOG) 1 UNIT/0.01 ML (CHARGE PER UNIT) SC SCH ×4 (06:00→20:55)
[2016-12-16] MEDS: NAPROXEN 250 MG (NAPROSYN) TABLET PO SCH ×2 (06:24→16:15)
[2016-12-16] MEDS: morphine INJ 4 MG/ML 1 ML (VIAL/SYRINGE) IV PRN ×4 (06:28→23:48)
[2016-12-16] MEDS ORDERED: PANTOPRAZOLE 40 MG (PROTONIX) TAB PO PRN (07:00)
[2016-12-16] MEDS: ACETAMINOPHEN 325 MG TABLET/CAPLET (TYLENOL) PO PRN (07:29)
[2016-12-16 08:00] VITALS: BP 128/73
[2016-12-16] MEDS ORDERED: TROUGH ORDER-PHARMACY XX NR (08:00)
[2016-12-16 08:25] LABS: BASOPHILS # (AUTO) 0.1 10^3/uL (0.0-0.1); BASOPHILS % (AUTO) 1 % (0-10); EOSINOPHILS # (AUTO) 0.3 10^3/uL (0.0-0.3); EOSINOPHILS % (AUTO) 4 % (0-10); LYMPHOCYTES # (AUTO) 2.2 X 10^3 (1.0-4.0); LYMPHOCYTES % (AUTO) 32 % (12-44); MEAN CORPUSCULAR HEMOGLOBIN 23 PG (25-34); MEAN CORPUSCULAR HGB CONC 31 G/DL (32-36); MEAN CORPUSCULAR VOLUME 76 FL (80-99); MEAN PLATELET VOLUME 10.6 FL (7.4-10.4); MONOCYTES # (AUTO) 0.6 X 10^3 (0.0-1.0); MONOCYTES % (AUTO) 8 % (0-12); NEUTROPHILS # (AUTO) 3.7 X 10^3 (1.8-7.8); NEUTROPHILS % (AUTO) 55 % (42-75); PLATELET COUNT 157 10^3/uL (130-400); RED CELL DISTRIBUTION WIDTH 17.2 % (10.0-14.5); WHITE BLOOD COUNT 6.8 10^3/uL (4.3-11.0)
--- NOTE | 2016-12-16 08:27 | Progress Note (SOAP) ---
Subjective Subjective/Events-last exam Patient appears to be in fairly good spirits. She understands that her infection of the foot takes priority. She reports she is staying fairly comfortable although she does have some pain on the midportion of her right foot. Objective Exam Last Set of Vital Signs Vital Signs Date Time Temp Pulse Resp B/P (MAP) Pulse Ox O2 Delivery O2 Flow Rate FiO2 12/16/16 00:00 97.9 91 20 130/82 99 Room Air Capillary Refill : Less Than 3 Seconds I&O Intake and Output 12/16/16 00:00 Intake Total 3430 ml Output Total 1500 ml Balance 1930 ml Intake Oral 1880 ml IV Total 1550 ml Output Urine Total 1500 ml # Voids 2 General: No Acute Distress Lungs: Clear to Auscultation Heart: Regular Rate Extremities: Other (The right foot is currently wrapped with gauze. The tips of the toes visible are normal skin color.) Results/Procedures Lab Laboratory Tests 12/15/16 10:52: Sodium Level 139, Potassium Level 5.5H, Chloride Level 113H, Carbon Dioxide Level 20L, Anion Gap 6, Blood Urea Nitrogen 21H, Creatinine 1.04, Estimat Glomerular Filtration Rate > 60, BUN/Creatinine Ratio 20, Glucose Level 149H, Calcium Level 8.0L 12/15/16 15:59: Glucometer 86 12/15/16 19:47: Glucometer 240H 12/16/16 06:11: Glucometer 147H 12/16/16 08:18: Microbiology 12/14/16 Blood Culture - Final, Complete No growth 12/14/16 Urine Culture - Preliminary, Resulted Escherichia Coli 12/14/16 Gram Stain - Final, Resulted 12/14/16 Wound Culture - Preliminary, Resulted Staphylococcus Aureus Radiology Right foot x-ray: "IMPRESSION: Status post second toe amputation. Unchanged destructive bony findings in the first proximal phalanx. Worsening areas of lucency and early bony erosion in the distal aspects of the third and fourth metatarsals." Assessment/Plan Assessment/Plan Admission Dx 1. Diabetic foot wound with worsening 3rd and 4th metatarsal head bony destructive changes with recent second digit distal amputation 2. Hyperkalemia 3. UTI 4. DMI 5. Anxiety 6. Peripheral neuropathy 7. Microalbuminuria 8. Substance abuse history Plan 1. Diabetic foot wound with worsening 3rd and 4th metatarsal head bony destructive changes with recent second digit distal amputation -Dr Tinajero consulted appreciate recommendations -Wound culture prelim with MRSA, continue vancomycin for now, add ceftriaxone for gram negative coverage 12/16 podiatry consult noted. -Continue with vancomycin due to the MRSA. -MRI of the foot yesterday revealed osteomyelitis of the distal first and second proximal phalanx 2. Hyperkalemia- unclear etiology, hold lisinopril and monitor 3. UTI- awaiting culture, ceftriaxone 12/16 urine culture showed resistance to the Floxin's. She will be continued on ceftriaxone for now. 4. DMI- resume home insulin degludec Blood sugar q6 while NPO Diabetic diet when able to eat Sliding scale insulin as needed 5. Anxiety- resume home paroxetine and hydroxyzine, hold buspirone as already on multiple meds and was above max dose, if restarted will need lower dose 6. Peripheral neuropathy- resume home gabapentin 7. Microalbuminuria- hold home lisinopril due to hyperkalemia 8. Substance abuse history- plans for continued rehab in place, will consult social work to coordinate with treatment facility to try to hold her spot if she is unable to be discharged soon enough to make it there Sunday. DVT ppx- SCDs, enoxaparin if not having surgery today Diagnosis/Problems: Clinical Quality Measures DVT/VTE Risk/Contraindication: Risk Factor Score Per Nursin RFS Level Per Nursing on Admit: 3=High WYATT JIN MD Dec 16, 2016 08:27
[2016-12-16 08:45] LABS: ANION GAP 7 MMOL/L (5-14); BLOOD UREA NITROGEN 18 MG/DL (7-18); BUN/CREATININE RATIO 19; CARBON DIOXIDE 18 MMOL/L (21-32); CHLORIDE 113 MMOL/L (98-107); CREATININE SERUM 0.95 MG/DL (0.60-1.30); GFR ESTIMATED > 60; GLUCOSE 112 MG/DL (70-105); SODIUM 138 MMOL/L (135-145)
[2016-12-16 08:46] LABS: POTASSIUM 5.9 MMOL/L (3.6-5.0)
[2016-12-16] MEDS: NICOTINE 14 MG (NICODERM) PATCH TD SCH (09:10)
[2016-12-16] MEDS: cefTRIAXone INJECTION 1,000 MG in NS (IVPB) 50 ML IV SCH (09:39)
[2016-12-16] MEDS: VANCOMYCIN 1 GM/NS 250 ML IVPB IV SCH ×4 (09:39→20:25)
[2016-12-16] MEDS: PARoxetine 20 MG (PAXIL) TAB PO SCH (09:39)
[2016-12-16] MEDS: lisINopril 10 MG (PRINIVIL) TAB PO SCH (09:39)
[2016-12-16] MEDS: GABAPENTIN 400 MG (NEURONTIN) CAP PO SCH ×3 (09:39→20:25)
[2016-12-16] MEDS: SILVER SULFADIAZINE 50 GM CREAM TOP SCH (09:40)
[2016-12-16] MEDS: PATCH REMOVAL TP SCH (09:40)
[2016-12-16] MEDS: NS IV 1000 ML 1,000 ML IV SCH (13:45)
[2016-12-16] MEDS: HYDROcodone/APAP 7.5 MG/325 MG (LORTAB, LORCET PLUS) TABLET PO PRN ×3 (13:45→23:09)
[2016-12-16 16:16] VITALS: BP 124/79
[2016-12-16] MEDS: INSULIN DEGLUDEC 35 UNIT SQ SCH (20:56)
[2016-12-17 00:37] VITALS: BP 124/82
[2016-12-17] MEDS: NS IV 1000 ML 1,000 ML IV SCH ×2 (03:03→16:50)
[2016-12-17] MEDS: CATHETER FLUSH 10 ML SYR IV SCH ×3 (05:56→21:40)
[2016-12-17] MEDS: inSUlin ASPART (NovoLOG) 1 UNIT/0.01 ML (CHARGE PER UNIT) SC SCH ×4 (06:00→21:39)
[2016-12-17] MEDS: NAPROXEN 250 MG (NAPROSYN) TABLET PO SCH ×2 (06:09→16:50)
--- NOTE | 2016-12-17 06:48 | Progress Note (SOAP) ---
Subjective Subjective/Events-last exam Patient does not voice any current concerns. She knows that she has to receive antibiotics for her osteomyelitis of her right foot. Her glucose values are improved. Date seen by provider: Dec 17, 2016 Objective Exam Last Set of Vital Signs Vital Signs Date Time Temp Pulse Resp B/P (MAP) Pulse Ox O2 Delivery O2 Flow Rate FiO2 12/17/16 00:37 97.1 77 20 124/82 95 Room Air Capillary Refill : Less Than 3 Seconds I&O Intake and Output 12/17/16 00:00 Intake Total 1970 ml Balance 1970 ml Intake Oral 1720 ml IV Total 250 ml # Voids 5 # Bowel Movements 1 General: No Acute Distress Neck: Supple Lungs: Clear to Auscultation Extremities: Other (Right foot remains covered with gauze.) Results/Procedures Lab Laboratory Tests 12/16/16 08:18: White Blood Count 6.8, Red Blood Count 3.90L, Hemoglobin 9.1L, Hematocrit 30L, Mean Corpuscular Volume 76L, Mean Corpuscular Hemoglobin 23L, Mean Corpuscular Hemoglobin Concent 31L, Red Cell Distribution Width 17.2H, Platelet Count 157, Mean Platelet Volume 10.6H, Neutrophils (%) (Auto) 55, Lymphocytes (%) (Auto) 32 , Monocytes (%) (Auto) 8, Eosinophils (%) (Auto) 4, Basophils (%) (Auto) 1, Neutrophils # (Auto) 3.7, Lymphocytes # (Auto) 2.2, Monocytes # (Auto) 0.6, Eosinophils # (Auto) 0.3, Basophils # (Auto) 0.1, Sodium Level 138, Potassium Level 5.9H, Chloride Level 113H, Carbon Dioxide Level 18L, Anion Gap 7, Blood Urea Nitrogen 18, Creatinine 0.95, Estimat Glomerular Filtration Rate > 60, BUN/ Creatinine Ratio 19, Glucose Level 112H, Calcium Level 8.0L, Vancomycin Level Trough 18.8 12/16/16 10:45: Glucometer 111H 12/16/16 15:51: Glucometer 99 12/16/16 20:45: Glucometer 211H 12/17/16 05:57: Glucometer 65L Microbiology 12/14/16 Blood Culture - Final, Complete No growth 12/14/16 Urine Culture - Final, Complete Escherichia Coli 12/14/16 Gram Stain - Final, Resulted 12/14/16 Wound Culture - Preliminary, Resulted Staphylococcus Aureus Radiology Right foot x-ray: "IMPRESSION: Status post second toe amputation. Unchanged destructive bony findings in the first proximal phalanx. Worsening areas of lucency and early bony erosion in the distal aspects of the third and fourth metatarsals." Assessment/Plan Assessment/Plan Admission Dx 1. Diabetic foot wound with worsening 3rd and 4th metatarsal head bony destructive changes with recent second digit distal amputation 2. Hyperkalemia 3. UTI 4. DMI 5. Anxiety 6. Peripheral neuropathy 7. Microalbuminuria 8. Substance abuse history Plan 1. Diabetic foot wound with worsening 3rd and 4th metatarsal head bony destructive changes with recent second digit distal amputation -Dr Tinajero consulted appreciate recommendations -Wound culture prelim with MRSA, continue vancomycin for now, add ceftriaxone for gram negative coverage 12/16 podiatry consult noted. -Continue with vancomycin due to the MRSA. -MRI of the foot yesterday revealed osteomyelitis of the distal first and second proximal phalanx 12/17 -Vancomycin continues day number 3 -Will consult for PICC line for discharge planning. 2. Hyperkalemia- unclear etiology, hold lisinopril and monitor 3. UTI- awaiting culture, ceftriaxone 12/16 urine culture showed resistance to the Floxin's. She will be continued on ceftriaxone for now. 4. DMI- resume home insulin degludec Blood sugar q6 while NPO Diabetic diet when able to eat Sliding scale insulin as needed 12/17 on Tresiba and SS 5. Anxiety- resume home paroxetine and hydroxyzine, hold buspirone as already on multiple meds and was above max dose, if restarted will need lower dose 6. Peripheral neuropathy- resume home gabapentin 7. Microalbuminuria- hold home lisinopril due to hyperkalemia 8. Substance abuse history- plans for continued rehab in place, will consult social work to coordinate with treatment facility to try to hold her spot if she is unable to be discharged soon enough to make it there Sunday. DVT ppx- SCDs, enoxaparin if not having surgery today Diagnosis/Problems: Clinical Quality Measures DVT/VTE Risk/Contraindication: Risk Factor Score Per Nursin RFS Level Per Nursing on Admit: 3=High WYATT JIN MD Dec 17, 2016 06:48
[2016-12-17 08:00] VITALS: BP 125/85
[2016-12-17] MEDS: cefTRIAXone INJECTION 1,000 MG in NS (IVPB) 50 ML IV SCH (08:45)
[2016-12-17] MEDS: VANCOMYCIN 1 GM/NS 250 ML IVPB IV SCH ×4 (08:46→20:06)
[2016-12-17] MEDS: GABAPENTIN 400 MG (NEURONTIN) CAP PO SCH ×3 (08:46→20:05)
[2016-12-17] MEDS: PATCH REMOVAL TP SCH (08:47)
[2016-12-17] MEDS: NICOTINE 14 MG (NICODERM) PATCH TD SCH (08:47)
[2016-12-17] MEDS: HYDROcodone/APAP 7.5 MG/325 MG (LORTAB, LORCET PLUS) TABLET PO PRN ×4 (08:47→23:56)
[2016-12-17] MEDS: lisINopril 10 MG (PRINIVIL) TAB PO SCH (08:47)
[2016-12-17] MEDS: PARoxetine 20 MG (PAXIL) TAB PO SCH (08:47)
[2016-12-17] MEDS: morphine INJ 4 MG/ML 1 ML (VIAL/SYRINGE) IV PRN ×3 (09:53→20:58)
[2016-12-17] MEDS: SILVER SULFADIAZINE 50 GM CREAM TOP SCH (10:00)
--- NOTE | 2016-12-17 13:57 | Podiatry Progress Note ---
Standard Progress Note Progress Notes/Assess & Plan Progress/Assessment & Plan The patient is resting well with no new complaints. She is still having some foot pain, trying to stay off the foot and having it dress daily. She denies any F/C/N/V. Vital Signs Date Time Temp Pulse Resp B/P (MAP) Pulse Ox O2 Delivery O2 Flow Rate FiO2 12/17/16 08:00 98.8 74 20 125/85 98 Room Air 12/17/16 08:00 Room Air 12/17/16 07:57 95 12/17/16 07:56 93 12/17/16 00:37 97.1 77 20 124/82 95 Room Air 12/16/16 16:16 97.4 77 20 124/79 95 Room Air I & O 12/17/16 07:00 Intake Total 3240 ml Balance 3240 ml The full thickness wound to the plantar aspect of the right hallux is improved with less erythema, serous exudate, minimal hyperkeratotic border and no proximal streaking. There is some increase in calor to the anterior medial right forefoot as compared to the rearfoot but this too has improved over the last couple days. MRI from 12/15/16 indicated likely osteomyelitis to the head of the proximal phalanx of the hallux and the proximal phalanx of the 2nd digit, right foot. They also describe the fractures to the head of the 3rd and 4th metatarsals which can't completely exclude osteomyelitis affecting these areas as well. A/P: 1) Osteomyelitis to the 1st and 2nd toes of the right foot. 2) Full Thickness Ulceration right (Shaw Grade 3). 3) Diabetic Neuropathy. 4) History of non-compliance. 5) Tobaccoism. We discussed the results of the x-rays and the MRI. She understands that if she doesn't pursue treatment, the infection will spread and could results in further loss of limb or even her life. We discussed amputation of the 1st and 2nd digits of the right foot as this can be the most definitive treatment option. We also discussed terminologist antibiotics which would need to administered by IV. We discussed her poor veins and how she needed to preserve her veins for medical purposes. She is to have a PICC line placed. She understands that with assisted antibiotics, there is no guarantee that the infection won't spread or be completely eradicated. She stated that she does not want any further amputations and will consent to have local wound care and assisted IV antibiotics. She will need a bone sample for cultures and sensitivities to direct terminologist antibiotic use. We will try to have this done tomorrow under sedation and local anesthetic. Continue wound care daily with no weight to the right foot. We also discussed smoking cessation. Final Diagnosis Osteomyelitis right foot BROOKS GARZA DPM Dec 17, 2016 13:57
[2016-12-17 16:00] VITALS: BP 116/75
[2016-12-17] MEDS: INSULIN DEGLUDEC 35 UNIT SQ SCH (21:00)
[2016-12-18] VITALS: BP 130/93
[2016-12-18] MEDS: morphine INJ 4 MG/ML 1 ML (VIAL/SYRINGE) IV PRN ×2 (00:55→08:23)
[2016-12-18] MEDS: inSUlin ASPART (NovoLOG) 1 UNIT/0.01 ML (CHARGE PER UNIT) SC SCH ×4 (05:14→21:56)
[2016-12-18] MEDS: NS IV 1000 ML 1,000 ML IV SCH ×3 (05:14→23:37)
[2016-12-18] MEDS: CATHETER FLUSH 10 ML SYR IV SCH ×3 (05:14→22:00)
[2016-12-18] MEDS: NAPROXEN 250 MG (NAPROSYN) TABLET PO SCH ×2 (05:15→17:52)
[2016-12-18 08:00] VITALS: BP 146/83
[2016-12-18] MEDS: GABAPENTIN 400 MG (NEURONTIN) CAP PO SCH ×3 (08:09→19:53)
[2016-12-18] MEDS: PARoxetine 20 MG (PAXIL) TAB PO SCH (08:10)
[2016-12-18] MEDS: lisINopril 10 MG (PRINIVIL) TAB PO SCH (08:10)
--- NOTE | 2016-12-18 08:10 | Progress Note (SOAP) ---
Subjective Subjective/Events-last exam Patient voices no new concerns today. She has no current urinary symptoms. She is having biopsy today of her foot. Date seen by provider: Dec 18, 2016 Objective Exam Last Set of Vital Signs Vital Signs Date Time Temp Pulse Resp B/P (MAP) Pulse Ox O2 Delivery O2 Flow Rate FiO2 12/18/16 00:00 98.4 75 20 130/93 97 Room Air Capillary Refill : Less Than 3 SecondsLess Than 3 Seconds I&O Intake and Output 12/18/16 00:00 Intake Total 4360 ml Balance 4360 ml Intake Oral 1810 ml IV Total 2550 ml # Voids 8 # Bowel Movements 1 General: No Acute Distress Lungs: Clear to Auscultation Heart: Regular Rate Results/Procedures Lab Laboratory Tests 12/17/16 11:20: Glucometer 76 12/17/16 14:33: Glucometer 67L 12/17/16 21:28: Glucometer 81 12/18/16 05:31: Glucometer 190H Microbiology 12/14/16 Blood Culture - Final, Complete No growth 12/14/16 Urine Culture - Final, Complete Escherichia Coli 12/14/16 Gram Stain - Final, Resulted 12/14/16 Wound Culture - Preliminary, Resulted Staphylococcus Aureus Radiology Right foot x-ray: "IMPRESSION: Status post second toe amputation. Unchanged destructive bony findings in the first proximal phalanx. Worsening areas of lucency and early bony erosion in the distal aspects of the third and fourth metatarsals." Assessment/Plan Assessment/Plan Admission Dx 1. Diabetic foot wound with worsening 3rd and 4th metatarsal head bony destructive changes with recent second digit distal amputation 2. Hyperkalemia 3. UTI 4. DMI 5. Anxiety 6. Peripheral neuropathy 7. Microalbuminuria 8. Substance abuse history Plan 1. Diabetic foot wound with worsening 3rd and 4th metatarsal head bony destructive changes with recent second digit distal amputation -Dr Tinajero consulted appreciate recommendations -Wound culture prelim with MRSA, continue vancomycin for now, add ceftriaxone for gram negative coverage 12/16 podiatry consult noted. -Continue with vancomycin due to the MRSA. -MRI of the foot yesterday revealed osteomyelitis of the distal first and second proximal phalanx 12/17 -Vancomycin continues day number 3 -Will consult for PICC line for discharge planning. 12/18 biopsy today at noon of the affected area for more definitive antibiotic treatment. 2. Hyperkalemia- unclear etiology, hold lisinopril and monitor 3. UTI- awaiting culture, ceftriaxone 12/16 urine culture showed resistance to the Floxin's. She will be continued on ceftriaxone for now. 4. DMI- resume home insulin degludec Blood sugar q6 while NPO Diabetic diet when able to eat Sliding scale insulin as needed 12/17 on Tresiba and SS 5. Anxiety- resume home paroxetine and hydroxyzine, hold buspirone as already on multiple meds and was above max dose, if restarted will need lower dose 6. Peripheral neuropathy- resume home gabapentin 7. Microalbuminuria- hold home lisinopril due to hyperkalemia 8. Substance abuse history- plans for continued rehab in place, will consult social work to coordinate with treatment facility to try to hold her spot if she is unable to be discharged soon enough to make it there Sunday. DVT ppx- SCDs, enoxaparin if not having surgery today Diagnosis/Problems: Clinical Quality Measures DVT/VTE Risk/Contraindication: Risk Factor Score Per Nursin RFS Level Per Nursing on Admit: 3=High WYATT JIN MD Dec 18, 2016 08:10
[2016-12-18] MEDS: cefTRIAXone INJECTION 1,000 MG in NS (IVPB) 50 ML IV SCH (08:23)
[2016-12-18] MEDS: NICOTINE 14 MG (NICODERM) PATCH TD SCH (08:24)
[2016-12-18] MEDS: VANCOMYCIN 2000 MG/NS 500 ML IVPB IV SCH ×2 (08:24)
[2016-12-18] MEDS: SILVER SULFADIAZINE 50 GM CREAM TOP SCH (08:24)
[2016-12-18] MEDS: PATCH REMOVAL TP SCH (08:24)
--- NOTE | 2016-12-18 09:34 | CONSULTATION REPORT ---
DATE OF CONSULTATION: 12/15/2016 REASON FOR CONSULT: Possible osteomyelitis of the right foot. The patient was admitted through the ER due to foot pain. Apparently she had a second toe amputation on the same foot for osteomyelitis a couple of months ago. She indicates she has had wound on the base of the big toe for a while. She is not sure how long. She had pain across the foot and some swelling that initiated her visit to the ER. She states that it still sore. She has been treating the wound by exposing it to air as well as a topical antibiotic and Band-Aid every once in awhile. She indicated to me that she has a history of diabetes and her blood sugars are not well controlled. She was hoping to [facility] for rehabilitation purposes and planned on doing so in the next few days. PAST MEDICAL HISTORY: She has a past medical history of: 1. Diabetic neuropathy. 2. Hyperkalemia. 3. UTI. 4. Anxiety. 5. Substance abuse. 6. Tobacco use. 7. Hepatitis C. PAST SURGICAL HISTORY: 1. Amputation of the right second toe. 2. Heart surgery as a . 3. . FAMILY MEDICAL HISTORY: Noncontributory. SOCIAL HISTORY: The patient denies alcohol use. Past history of methamphetamine being used. She says her last use was in October 2016. Current every day smoker of cigarettes. PHYSICAL EXAM: The patient is resting well in no apparent distress. EXTREMITIES: She has no dressing to the right lower extremity. She has 2/4 pedal pulses bilaterally. Capillary fill time is less than 3 seconds. Light touch sensation is diminished bilateral foot. She has a full thickness wound to the plantar aspect of the base of the right hallux with granular and fibrotic tissue. There is serous exudate, minimal erythema, no proximal streaking, no bogginess noted at this time. There is some discomfort with palpation to the area of the base of the first toe, right foot. There is a dry eschar to the distal aspect of the left hallux that measures approximately 4 mm in diameter. MUSCULOSKELETAL FINDINGS: The patient has been a partial amputation of the right second toe. LABS: Laboratories were reviewed which demonstrate a white blood cell count of 5.7. Cultures of the right wound taken 12/14 indicated MRSA isolation. Screen test was positive for MRSA. Also E. coli was cultured out of the wound. X-RAYS: X-ray taken on 12/14 demonstrates osteolyses of the head of the proximal phalanx, right foot. There is also impaction with osteolysis to the head of the 3rd and lesser extent to the 4th metatarsal, right foot. We are awaiting the results on the MRI that was taken today. ASSESSMENT: 1. Osteomyelitis, right foot. 2. Diabetic ulceration, right foot. 3. History of amputation, right second toe. PLAN: Various treatment options were discussed with the patient. Depending on the results of the MR, she will need osseous debridement of the right hallux and possibly the 3rd and 4th metatarsal head area. She will continue with IV antibiotics for now. The patient indicated that she was not aware that she has an infection and was trying to give the wound air. She was instructed that wound care needs to be done on a daily basis and she needs to cover this and not to spread the MRSA infection. She still had some concerns about her rehabilitation and leaving for [place] on Sunday. She understands now that she may have to postpone that particular treatment. Job ID: [id number] Dictated Date: 12/15/2016 17:15:51 Movement Assembler Date: 12/18/2016 09:22:22/cortez
--- NOTE | 2016-12-18 10:18 | Diagnostic Imaging Report ---
INDICATION: PICC line. COMPARISON: 11/19/2016. FINDINGS: A right PICC catheter has its distal tip overlying the right cavoatrial junction or perhaps upper right atrium. If it was withdrawn 2 to 2.5 cm, it could be confirmed in the lower SVC and outside the right atrium. If that manipulation is undertaken, a followup radiograph would not be needed to confirm position. There are 5 lobed interstitial opacities and P[place] B lines having developed since the prior exam. This could be edema or interstitial pneumonia. The heart size itself is normal. IMPRESSION: The PICC line is a little bit deep and probably is just past the cavoatrial junction. If withdrawn around 2.5 cm, it would be confirmed to be in the lower SVC. The 5 lobed interstitial opacities, edema versus pneumonia, reflect a new finding. Stable heart size. Dictated by: Dictated on workstation # [id number]
[2016-12-18] MEDS ORDERED: LIDOCAINE 1% INJ 20 ML (XYLOCAINE) VIAL ONE (11:15)
[2016-12-18] MEDS ORDERED: BUPIVACAINE 0.5% 30 ML (SENSORCAINE) VIAL ONE (11:15)
[2016-12-18] MEDS ORDERED: proPOfol 200 MG/20 ML (DIPRIVAN) VIAL IV ONE ×2 (12:02→12:53)
[2016-12-18] MEDS ORDERED: LIDOCAINE PF 2% 10 ML (XYLOCAINE) AMP ONE (12:02)
[2016-12-18] MEDS ORDERED: MIDAZOLAM 2 MG/2 ML (VERSED) VIAL ONE (12:02)
[2016-12-18] MEDS ORDERED: LACTATED RINGERS 1,000 ML IV ONE (12:04)
[2016-12-18] MEDS: LACTATED RINGERS 1,000 ML IV SCH ×2 (12:12→20:01)
[2016-12-18] MEDS ORDERED: fentaNYL INJECTION 100 MCG/2 ML AMP ONE (12:39)
[2016-12-18] MEDS ORDERED: SILVER SULFADIAZINE 50 GM CREAM ONE (12:51)
--- NOTE | 2016-12-18 13:01 | Progress Note-Pre Operative ---
Pre-Operative Progress Note H&P Reviewed The H&P was reviewed, patient examined and no changes noted. Date H&P Reviewed: Dec 18, 2016 Time H&P Reviewed: 12:30 Pre-Operative Diagnosis: Osteomyelitis right foot BROOKS GARZA DPM Dec 18, 2016 13:01
--- NOTE | 2016-12-18 13:08 | Progress Note-Post Operative ---
Post-Operative Progess Note Surgeon (s)/Survey Field Technician (s) Surgeon BROOKS GARZA DPM Survey Field Technician: none Pre-Operative Diagnosis Osteomyelitis right foot Post-Operative Diagnosis Same Post-Op Procedure Note Date of Procedure: Dec 18, 2016 Name of Procedure Performed: Bone biopsy for cultures Description of the Procedure: Incision to bone of the head of the proximal phalanx, right Findings of the Procedure soft bone Anesthesia Type MAC Estimated blood loss (mL): minimal Specimen(s) collected/removed Bone of the right hallux proximal phalanx BROOKS GARZA DPM Dec 18, 2016 13:08
[2016-12-18] MEDS ORDERED: ONDANSETRON 4 MG/2 ML (SDV) Z0FRAN IVP PRN (13:15)
[2016-12-18] MEDS: HYDROcodone/APAP 5 MG/325 MG (LORTAB) TAB PO PRN ×3 (13:49→21:55)
[2016-12-18 16:00] VITALS: BP 154/91
[2016-12-18] MEDS: ACETAMINOPHEN 325 MG TABLET/CAPLET (TYLENOL) PO PRN (19:53)
[2016-12-18 20:00] VITALS: BP 161/93
[2016-12-18] MEDS: INSULIN DEGLUDEC 35 UNIT SQ SCH (21:56)
[2016-12-19 00:41] VITALS: BP 129/72
[2016-12-19] MEDS: HYDROcodone/APAP 5 MG/325 MG (LORTAB) TAB PO PRN ×2 (01:56→06:06)
[2016-12-19] MEDS: LACTATED RINGERS 1,000 ML IV SCH ×2 (02:44→09:09)
[2016-12-19] MEDS: inSUlin ASPART (NovoLOG) 1 UNIT/0.01 ML (CHARGE PER UNIT) SC SCH ×2 (06:06→09:30)
[2016-12-19] MEDS: NAPROXEN 250 MG (NAPROSYN) TABLET PO SCH (06:06)
[2016-12-19] MEDS: CATHETER FLUSH 10 ML SYR IV SCH (06:08)
--- NOTE | 2016-12-19 07:32 | Discharge Summary ---
Diagnosis/Chief Complaint Date of Admission Dec 14, 2016 at 20:33 Date of Discharge Dec 19, 2016 Admission Diagnosis Admission Diagnosis 1. Diabetic foot wound with worsening 3rd and 4th metatarsal head bony destructive changes with recent second digit distal amputation 2. Hyperkalemia 3. UTI 4. DMI 5. Anxiety 6. Peripheral neuropathy 7. Microalbuminuria 8. Substance abuse history Discharge Diagnosis 1. Diabetic foot wound with worsening 3rd and 4th metatarsal head bony destructive changes with recent second digit distal amputation 2. Osteomyelitis with noted MRSA from December 14 culture of the right foot 3. Urinary tract infectionEscherichia coli 4. Diabetes mellitusinsulin-dependent 5. Hyperkalemia 6. Anxiety 7. Peripheral neuropathy 8. Microalbuminuria 9. Substance abuse history Chief Complaint/HPI Chief Complaint/HPI Patient came to ER due to foot pain in right foot for the last 3-5 days. She had second toe distal amputation 2 months ago for osteomyelitis. She has a wound at the base of her big toe, but has pain across her whole foot and swelling in her forefoot that prompted her visit. She denies fever. She has felt nauseated and has had nasal congestion and sore throat. She has a history of substance abuse and recently went through a rehab program, she does note she relapsed once a month ago after her ex-boyfriend committed suicide, states that was her last use. She has plans to go to a 9 month program in [place] next week and is hopeful to get out of the hospital in time to go. She has type I diabetes and admits she has not been using her mealtime insulin as much as she should. She used to have a pump, but is on Tresiba and sliding scale based on carb counting as well as correction factor. She says she would to talk to Tamar Westbrook (certified diabetes educator) at [facility] about the Tresiba because she doesn't like it very well. Discharge Summary-Simple/Stand Procedures Podiatry-- Biopsy of metatarsal bone Consultations podiatry Dr. Tinajero Discharge Physical Examination Allergies: Coded Allergies: No Known Drug Allergies (Unverified , 10/22/16) Vitals & I&Os Vital Sign - Last 12Hours Date Time Temp Pulse Resp B/P (MAP) Pulse Ox O2 Delivery O2 Flow Rate FiO2 12/19/16 00:41 97.1 70 20 129/72 94 Room Air Intake and Output 12/19/16 00:00 Intake Total 3470 ml Output Total 3600 ml Balance -130 ml General Appearance: No Acute Distress Respiratory: Clear to Auscultation Cardiovascular: Regular Rate Extremities: Other (the right foot is covered with gauze on dismissal.) Hospital Course patient was admitted on December 15, 2016 with a diagnosis of osteomyelitis of the right metatarsal second. She has a history of MRSA and therefore was placed on vancomycin. She was also noted during the course of her initial workup to have a urinary tract infection and she was placed on levofloxacin as well as ceftriaxone. The culture later came back resistance to Floxin's and therefore this was discontinued and ceftriaxone continued. Patient continued to receive vancomycin daily with adjustments based upon her trough levels. Ultimately on December 17 consultation for PICC line was obtained in preparation for dismissal and the need for long-term antibiotics. Also Dr. Tinajero podiatry was consulted. Ultimately she received biopsy of the bone of the second hallux on the right side. At the time of dismissal this was pending. Patient also has insulin- dependent diabetes and this was monitored during the course of her hospital stay. She ultimately was placed back on to receive a 35 units at night with correction factors needed. She was felt ready for dismissal on December 19 and was educated on following up daily at the ambulatory surgery Center for IV vancomycin. Radiology Reviewed Right foot x-ray: "IMPRESSION: Status post second toe amputation. Unchanged destructive bony findings in the first proximal phalanx. Worsening areas of lucency and early bony erosion in the distal aspects of the third and fourth metatarsals." Discharge Instructions to patient/family Please see electonic discharge instructions given to patient. Discharge Medications Reviewed and agree with Discharge Medication list on patient's Discharge Instruction sheet Clinical Quality Measures DVT/VTE Risk/Contraindication: Risk Factor Score Per Nursin RFS Level Per Nursing on Admit: 3=High WYATT JIN MD Dec 19, 2016 07:32
[2016-12-19] MEDS ORDERED: HYDR-3812 PO (07:34)
--- NOTE | 2016-12-19 07:36 | Discharge Inst-Simple/Standard ---
Discharge Inst-Standard Discharge Medications New, Converted or Re-Newed RX: RX on Chart Patient Instructions/Follow Up Plan of Care/Instructions/FU: FU daily at ambulatory surgery for IV vanc Activity as Tolerated: Yes Discharge Diet: ADA Diet Return to The Hospital For: Fever or worsening pain of foot Planned Outpatient Orders/Ref. Pneu Vac Indicated: Yes WYATT JIN MD Dec 19, 2016 07:36
[2016-12-19] MEDS ORDERED: VANC1VIA IV (07:40)
[2016-12-19 08:00] VITALS: BP 163/95
[2016-12-19] MEDS: VANCOMYCIN 2000 MG/NS 500 ML IVPB IV SCH ×2 (09:25)
[2016-12-19] MEDS ORDERED: SILV20CR14 TP ×2 (09:46→09:51)
[2016-12-19] MEDS: SILVER SULFADIAZINE 50 GM CREAM TOP SCH (10:00)
[2016-12-19] MEDS: cefTRIAXone INJECTION 1,000 MG in NS (IVPB) 50 ML IV SCH (10:07)
[2016-12-19] MEDS: PARoxetine 20 MG (PAXIL) TAB PO SCH (10:07)
[2016-12-19] MEDS: PATCH REMOVAL TP SCH (10:07)
[2016-12-19] MEDS: GABAPENTIN 400 MG (NEURONTIN) CAP PO SCH ×2 (10:07→12:02)
[2016-12-19] MEDS: NICOTINE 14 MG (NICODERM) PATCH TD SCH (10:07)
[2016-12-19] MEDS: lisINopril 10 MG (PRINIVIL) TAB PO SCH (10:07)
--- NOTE | 2016-12-19 15:15 | OPERATIVE REPORT ---
PROCEDURE PHYSICIAN: TELMA GARZA DATE OF PROCEDURE: 12/18/2016 Telma Garza DPM. PREOPERATIVE DIAGNOSIS: Osteomyelitis right hallux and second digit. POSTOPERATIVE DIAGNOSIS: Osteomyelitis right hallux and second digit. PROCEDURE: Bone biopsy with culture and sensitivity head of the proximal phalanx right hallux. WOUND CLASS: Contaminated. ANESTHESIA: Monitored anesthesia care. HEMOSTASIS: Pneumatic ankle tourniquet at 250 mmHg. INDICATION: This 31-year-old female was admitted to the hospital secondary to right foot pain. She was admitted with ulceration to the plantar aspect of the right hallux. X-rays were taken which were consistent with osteomyelitis of the right hallux. An MRI had followed, and indicated osteomyelitis of the head of the proximal phalanx as well as the proximal phalanx of the second digit. We discussed risk and complications of amputation, as well as long-term antibiotics. She declined any further surgery but agreeable to a bone biopsy to dictate long-term antibiotic protocol. No guarantees were extended to the patient and she is willing to proceed. PROCEDURE: The patient was brought back to the operative table, placed secure, supine position. Appropriate timeout was performed. Ankle tourniquet was placed over the right lower extremity over several layers of padding. The local anesthetic was achieved with a 10 cc of 1:1 mixture of 1% Xylocaine, 0.5% Marcaine injected in a local infusion to the right hallux in a digital block. The right foot was then prepped and draped in normal sterile manner. The right foot was then elevated, allowed to exsanguinate after which the tourniquet was inflated to 250 mmHg. Attention was then directed to the dorsal lateral aspect of the right hallux where a 1.5 cm longitudinal linear incision was created overlying the interphalangeal joint and deepened down to bone where a rongeur was utilized to take a sample of the head of the proximal phalanx. The specimen was sent for culture and sensitivities, aerobic and anaerobic. The wound was flushed with copious amounts of normal saline; deep closure was performed with 4-0 Vicryl. Skin closure was performed with 4-0 Prolene in simple interrupted type stitch. Postoperative dressing consisted of Betadine soaked Adaptic to the incision site, Silvadene to the plantar aspect of the right hallux at the wound. Sterile 4 x 4, sterile Kerlix, all secured with a Coban wrap. The patient tolerated the anesthesia and procedure well and was transported from the operating room to the recovery area with vital signs stable and vascular status intact to all remaining digits of the right foot. She will be readmitted to the 4th floor under the care of Dr. Jay. The dressing is to be kept intact for the next 24 hours and then we will change the dressing for the plantar wound. She is to remain nonweightbearing on the right foot Job ID: [id number] Dictated Date: 12/18/2016 13:08:22 Gas Appliance Servicer Helper Date: 12/19/2016 14:58:09 / darcy
--- NOTE | 2016-12-19 15:15 | Anesthesia-General Post-Op ---
General Patient Condition Mental Status/LOC: Same as Preop Cardiovascular: Satisfactory Nausea/Vomiting: Absent Respiratory: Satisfactory Pain: Controlled Complications: Absent Post Op Complications Complications None Follow Up Care/Instructions Patient Instructions None needed. Anesthesia/Patient Condition Patient Condition Patient is doing well, no complaints, stable vital signs, no apparent adverse anesthesia problems. No complications reported per nursing. [place] [facility]: Yes IRINA HARLEY CRNA Dec 19, 2016 15:15
[2016-12-20] MEDS ORDERED: TROUGH ORDER-PHARMACY XX ONE (08:00)
== END 2016-12-19 13:25 | disposition home or self-care (01) | DRG 478 ==
LOC: EDUNIT# 15:16 → ER 15:18 → 4TH 20:32 → OBSVTOIN 20:32 → INTOOBSV 20:33
PROVIDERS: ADMIT Family Medicine; ATTEND Family Medicine
PROC: 0QBQ0ZX Excision of Right Toe Phalanx, Open Approach, Diagnostic (ICD-10-PCS; principal; 2016-12-18 12:12)
DX: M86.671 Other chronic osteomyelitis, right ankle and foot (principal); E11.69 Type 2 diabetes mellitus with other specified complication; N39.0 Urinary tract infection, site not specified; Z89.421 Acquired absence of other right toe(s); E87.5 Hyperkalemia; F41.9 Anxiety disorder, unspecified; R80.9 Proteinuria, unspecified; B95.62 Methicillin resistant Staphylococcus aureus infection as the cause of diseases classified elsewhere; F15.10 Other stimulant abuse, uncomplicated; Z79.4 Long term (current) use of insulin
CPT/HCPCS: 36415; 36569; 71010; 73630; 73720; 76937; 80048; 80053; 80202; 80306; 81000; 82962; 83605; 84703; 85025; 85652; 86141; 87040; 87070; 87075; 87077; 87088; 87186; 87205; 94760; 96361; 96374; 96375

== ENCOUNTER 2017-01-13 07:19 | Emergency (ER) | payer MEDICAID ==
[~2017-01-13] VITALS: Ht 170.2 cm; Wt 67.6 kg
[~2017-01-13 07:19] MED LIST changes: +DEXTROSE 50% 50 ML (IMS) SYR ONE; +HYDR-3812 PO; +INSU100I23 SQ; +INSU100I32 SQ; +NAPR500T3 PO; +SILV20CR14 TP; +VANC1VIA IV
--- NOTE | 2017-01-13 07:45 | ED Neurological Problem ---
General Stated Complaint: HYPERGLYCEMIA Source: patient, EMS Exam Limitations: clinical condition History of Present Illness Time seen by provider: 07:41 Initial Comments This 31-year-old white female presents with significant hypoglycemia. The patient's roommate found the patient largely unresponsive this morning and activated EMS. The patient's glucose at home was 22. The patient was able to take oral glucose and in route her glucose increased to 32. In the emergency department the glucose was largely unchanged. Patient acutely received an amp of D50 through her PICC line upon ED arrival which had been placed for IV antibiotics following toe amputation approximately 2 months ago. The patient was unable to offer reasonable explanation for her hypoglycemia other than apparently this occurs frequently for the patient. The patient denies associated fever, chills, headache, stiff neck, productive cough, nausea, vomiting, diarrhea, dysuria, frequency, flank pain, or any noted skin infection or rash. She does not believe she altered her daily insulin use yesterday. The patient recalls that her glucose was 200 last night before she went to bed. Allergies and Home Medications Allergies Coded Allergies: No Known Drug Allergies (Unverified , 10/22/16) Home Medications Buspirone HCl 15 Mg Tablet, 30 MG PO TID, (Reported) TAKES 2 (15MG) TABLETS Gabapentin 800 Mg Tablet, 800 MG PO TID, (Reported) Hydrocodone/Acetaminophen 1 Each Tablet, 1-2 TAB PO Q4H PRN for PAIN-MODERATE, # 30 Ref 0 Prescribed by: WYATT JIN on 12/19/16 0734 Hydroxyzine Pamoate 50 Mg Capsule, 50 MG PO TID PRN for ANXIETY, (Reported) Insulin Degludec 100 Unit/1 Ml Insuln.pen, 30 UNITS SQ HS, (Reported) Insulin Lispro 100 Unit/1 Ml Insuln.pen, 10 UNITS SQ SLIDING/SCALE, (Reported) Lisinopril 5 Mg Tablet, 10 MG PO DAILY, (Reported) TAKES 2 (5 MG) TABLETS Naproxen 500 Mg Tablet, 500 MG PO BID, (Reported) Omeprazole 40 Mg Capsule.dr, 40 MG PO DAILY PRN for INDIGESTION, (Reported) Paroxetine HCl 20 Mg Tablet, 20 MG PO DAILY, (Reported) Silver Sulfadiazine 20 Gm Cream..g., 20 GM TP DAILY for 30 Days, Ref 0 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 Prescribed by: ASHWIN HARRIS on 12/19/16 0951 Vancomycin HCl 1 Gm Vial, 2 GM IV DAILY for 28 Days Prescribed by: WYATT JIN on 12/19/16 0740 Constitutional: No chills, No fever Eyes: Denies Blurred Vision Ears, Nose, Mouth, Throat: denies ear pain Respiratory: No cough Gastrointestinal: No abdominal pain, No diarrhea, No vomiting Genitourinary: No dysuria, No frequency Musculoskeletal: No back pain Skin: No rash Psychiatric/Neurological: No Symptoms Reported Endocrine: See HPI Hematologic/Lymphatic: No Symptoms Reported Past Yzomhoe-Hldhvm-Fdmncf Hx Patient Social History Type Used: Cigarettes 2nd Hand Smoke Exposure: No Recent Hopitalizations: No Immunizations Up To Date Tetanus Booster (TDap): Unknown PED Vaccines UTD: No Date of Influenza Vaccine: Jul 03, 2016 Seasonal Allergies Seasonal Allergies: No Surgeries HX Surgeries: Yes (OPEN HEART SX AN INFANT, RIGHT FOOT SURGERY ON SUNDAY, ) Surgeries: Cardiac, Section, Orthopedic Respiratory Hx Respiratory Disorders: No Cardiovascular Hx Cardiac Disorders: Yes (CARDIAC SURGERY AN ) Neurological Hx Neurological Disorders: Yes Neurological Disorders: Neuropathy, Seizure Disorder Genitourinary Hx Genitourinary Disorders: No Gastrointestinal Hx Gastrointestinal Disorders: Yes (CELIAC DISEASE) Musculoskeletal Hx Musculoskeletal Disorders: Yes (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) Endocrine Hx Endocrine Disorders: Yes (PT HAS INSULIN PUMP) Endocrine Disorders: Diabetes, Insulin dep HEENT HX ENT Disorders: No Loss of Vision: Denies Hearing Impairment: Denies Cancer Hx Cancer: No Psychosocial Hx Psychiatric Problems: Yes Behavioral Health Disorders: Anxiety Integumentary HX Skin/Integumentary Disorder: No Blood Transfusions Hx Blood Disorders: Yes (HEP C+) Reviewed Nursing Assessment Reviewed/Agree w Nursing PMH: Yes Family Medical History Significant Family History: No Pertinent Family Hx Family Medial History: Physical Exam Vital Signs Vital Sign - Last 12Hours 01/13/17 07:20 Temp 96.4 Pulse 93 Resp 16 B/P (MAP) 156/111 Pulse Ox 100 O2 Delivery Room Air Capillary Refill : General Appearance: mild distress HEENT: normal ENT inspection Neck: full range of motion, supple Respiratory: chest non-tender, lungs clear, normal breath sounds Cardiovascular: normal peripheral pulses, regular rate, rhythm Gastrointestinal: normal bowel sounds, non tender, soft Back: normal inspection, no CVA tenderness Extremities: normal range of motion, non-tender, other (recent surgical amputation of the toe.) Neurologic/Psychiatric: no motor/sensory deficits, other (the patient was originally slowly answer questions but appeared to be oriented to person place and time. The patient's level of consciousness improved following the D50 and oral calories. No lateralizing localizing neurologic findings were appreciated. ) Motor/Sensory: no motor deficit, no sensory deficit Skin: normal color, warm/dry Progress/Results/Core Measures Results/Orders Lab Results Laboratory Tests Test 01/13/17 07:23 01/13/17 08:16 01/13/17 08:34 Range/Units Glucometer 31 *L 206 H 70-110 MG/DL White Blood Count 7.9 4.3-11.0 10^3/uL Red Blood Count 4.26 L 4.35-5.85 10^6/uL Hemoglobin 9.7 L 11.5-16.0 G/DL Hematocrit 31 L 35-52 % Mean Corpuscular Volume 73 L 80-99 FL Mean Corpuscular Hemoglobin 23 L 25-34 PG Mean Corpuscular Hemoglobin Concent 31 L 32-36 G/DL Red Cell Distribution Width 17.2 H 10.0-14.5 % Platelet Count 266 130-400 10^3/uL Mean Platelet Volume 11.0 H 7.4-10.4 FL Neutrophils (%) (Auto) 63 42-75 % Lymphocytes (%) (Auto) 17 12-44 % Monocytes (%) (Auto) 13 H 0-12 % Eosinophils (%) (Auto) 6 0-10 % Basophils (%) (Auto) 1 0-10 % Neutrophils # (Auto) 5.0 1.8-7.8 X 10^3 Lymphocytes # (Auto) 1.3 1.0-4.0 X 10^3 Monocytes # (Auto) 1.0 0.0-1.0 X 10^3 Eosinophils # (Auto) 0.5 H 0.0-0.3 10^3/uL Basophils # (Auto) 0.0 0.0-0.1 10^3/uL Sodium Level 138 135-145 MMOL/L Potassium Level 5.0 3.6-5.0 MMOL/L Chloride Level 110 H 98-107 MMOL/L Carbon Dioxide Level 19 L 21-32 MMOL/L Anion Gap 9 5-14 MMOL/L Blood Urea Nitrogen 26 H 7-18 MG/DL Creatinine 1.03 0.60-1.30 MG/DL Estimat Glomerular Filtration Rate > 60 BUN/Creatinine Ratio 25 Glucose Level 307 H 70-105 MG/DL Hemoglobin A1c 7.8 H 4.5-6.2 % Calcium Level 8.6 8.5-10.1 MG/DL Total Bilirubin 0.1 0.1-1.0 MG/DL Aspartate Amino Transf (AST/SGOT) 21 5-34 U/L Alanine Aminotransferase (ALT/SGPT) 29 0-55 U/L Alkaline Phosphatase 150 H 40-136 U/L Total Protein 6.3 L 6.4-8.2 G/DL Albumin 3.5 3.2-4.5 G/DL My Orders Orders - MATTHEW MELO MD Hemoglobin A1c (01/13/17 07:29) Cbc With Automated Diff (01/13/17 07:29) Comprehensive Metabolic Panel (01/13/17 07:29) Ua Culture If Indicated (01/13/17 07:29) Chest 1 View, Ap/Pa Only (01/13/17 07:29) General/Regular (01/13/17 Breakfast) Accucheck Stat ONCE (01/13/17 08:22) Accucheck Stat ONCE (01/13/17 08:22) Saline Lock/Iv-Start (01/13/17 08:39) Vital Signs/I&O Vital Sign - Last 12Hours 01/13/17 07:20 Temp 96.4 Pulse 93 Resp 16 B/P (MAP) 156/111 Pulse Ox 100 O2 Delivery Room Air Progress Note : Time: 09:02 Progress Note The patient's PICC line was not usable for drawing blood. I placed an IV in the right external jugular after the nurses attempted to draw blood unsuccessfully. The patient is due for her IV vancomycin this morning and I am elected to you use the right external jugular this morning for that purpose. We will instill the vancomycin in the emergency department visit right external jugular. Prior to discharge we'll remove the line if were able to infuse successfully through the PICC line in the right antecubital area. The patient's glucose following administration of D50 and oral calories in the emergency department was 200. Patient was awake and alert. No ready explanation for her hypoglycemia was forthcoming. The patient's chest x-ray, laboratory evaluation, and urinalysis were unremarkable. Last patient follow up closely with [facility] and the patient's diabetes expert for further discussion of her insulin needs and treatment. I advised the patient to return to the emergency department any time she had any problems or questions. 1045 a.m. The patient received the IV vancomycin 2.25 g IV without difficulty. The patient will follow up on Sunday with her diabetic counselor at [facility]. The plan is for her to have another insulin pump placed. In the interim she'll continue to use a sliding scale and will watch her sugars and oral intake closely to prevent another episode of hypoglycemia. Departure Impression Impression: Primary Impression: Hypoglycemia associated with diabetes Disposition: HOME, SELF-CARE Condition: Improved Departure-Patient Inst. Decision time for Depature: 10:45 Referrals: [facility] (PCP) Primary Care Physician DAVE GRAFF (Family) Primary Care Physician Patient Instructions: Diabetes Type 1, Adult (DC) Add. Discharge Instructions: Close follow-up with your diabetic counselor at [facility]. Watch closely for further signs of hypoglycemia by checking her sugar frequently. Employer sliding scale as advised. Return to the emergency department if any problems or questions. Patient understood her instructions and will comply. MATTHEW MELO MD January 13, 2017 07:45
--- NOTE | 2017-01-13 07:59 | Diagnostic Imaging Report ---
EXAMINATION: Chest radiograph, portable AP view. DATE: January 13, 2017 at 0752 hours. INDICATION: 31-year-old female, hyperglycemia. COMPARISON: December 18, 2016. FINDINGS: There is a right-sided PICC line with tip overlying the mid SVC. Heart size and mediastinal contours are unremarkable. There is no identified pneumothorax. There is no large pleural effusion. There is no identified focal airspace consolidation. Previously noted interstitial opacities are significantly improved on current exam. IMPRESSION: 1. Significant improvement in previously noted predominantly interstitial opacities bilaterally without identified interval acute cardiopulmonary abnormality. 2. Right-sided PICC line overlying the mid SVC. Dictated by: Dictated on workstation # [id number]
[2017-01-13 08:46] LABS: BASOPHILS % (AUTO) 1 % (0-10); EOSINOPHILS # (AUTO) 0.5 10^3/uL (0.0-0.3); EOSINOPHILS % (AUTO) 6 % (0-10); LYMPHOCYTES # (AUTO) 1.3 X 10^3 (1.0-4.0); LYMPHOCYTES % (AUTO) 17 % (12-44); MEAN CORPUSCULAR HEMOGLOBIN 23 PG (25-34); MEAN CORPUSCULAR HGB CONC 31 G/DL (32-36); MEAN CORPUSCULAR VOLUME 73 FL (80-99); MONOCYTES % (AUTO) 13 % (0-12); NEUTROPHILS % (AUTO) 63 % (42-75); PLATELET COUNT 266 10^3/uL (130-400); RED BLOOD COUNT 4.26 10^6/uL (4.35-5.85); RED CELL DISTRIBUTION WIDTH 17.2 % (10.0-14.5); WHITE BLOOD COUNT 7.9 10^3/uL (4.3-11.0)
[2017-01-13 09:04] LABS: ALANINE AMINOTRANSFERASE 29 U/L (0-55); ALBUMIN 3.5 G/DL (3.2-4.5); ANION GAP 9 MMOL/L (5-14); ASPARTATE AMINO TRANSFERASE 21 U/L (5-34); BILIRUBIN,TOTAL 0.1 MG/DL (0.1-1.0); BLOOD UREA NITROGEN 26 MG/DL (7-18); BUN/CREATININE RATIO 25; CALCIUM 8.6 MG/DL (8.5-10.1); CARBON DIOXIDE 19 MMOL/L (21-32); CHLORIDE 110 MMOL/L (98-107); CREATININE SERUM 1.03 MG/DL (0.60-1.30); GFR ESTIMATED > 60; GLUCOSE 307 MG/DL (70-105); SODIUM 138 MMOL/L (135-145); TOTAL PROTEIN 6.3 G/DL (6.4-8.2)
[2017-01-13 11:22] VITALS: BP 138/84
== END 2017-01-13 11:22 | disposition home or self-care (01) ==
LOC: EDUNIT# 07:19 → ER 07:20
DX: E11.649 Type 2 diabetes mellitus with hypoglycemia without coma (principal); Z79.4 Long term (current) use of insulin
CPT/HCPCS: 36415; 71010; 80053; 82962; 83036; 85025; 96374

== ENCOUNTER 2017-01-16 08:55 | Outpatient (RCR) | payer MEDICAID ==
[2016-12-20 08:46] VITALS: BP 131/91
[2016-12-20] MEDS: CATHETER FLUSH 10 ML SYR IV PRN (09:20)
[2016-12-20] MEDS: SILVER SULFADIAZINE 50 GM CREAM EXT SCH (10:00)
[2016-12-21 08:57] VITALS: BP 133/90
[2016-12-21] MEDS: VANCOMYCIN INJECTION 2,250 MG in NS IV 500 ML 500 ML IV SCH (08:57)
--- NOTE | 2016-12-21 09:39 | Physician Query-Final Dx ---
MARION DURHAM 12/21/16 0939: Clinic Account Progress/Dx Physician Query: Please give a diagnosis for the Vancomycin treatment thank you Date of Service Dec 21, 2016 at 08:31 WYATT JIN MD 12/22/16 0724: Clinic Account Progress/Dx DIAGNOSIS: Diagnosis MRSA R MARION Burrows Dec 21, 2016 09:39 WYATT JIN MD Dec 22, 2016 07:24
[2016-12-21 11:10] VITALS: BP 133/90
[2016-12-22] MEDS: CATHETER FLUSH 10 ML SYR IV PRN ×3 (09:21→11:25)
[2016-12-22] MEDS: VANCOMYCIN INJECTION 2,250 MG in NS IV 500 ML 500 ML IV SCH (09:21)
[2016-12-22] MEDS: SILVER SULFADIAZINE 50 GM CREAM EXT SCH (10:05)
[2016-12-22 11:25] VITALS: BP 172/99
[2016-12-23] MEDS: VANCOMYCIN INJECTION 2,250 MG in NS IV 500 ML 500 ML IV SCH (08:34)
[2016-12-23] MEDS: CATHETER FLUSH 10 ML SYR IV PRN (08:34)
[2016-12-23] MEDS: SILVER SULFADIAZINE 50 GM CREAM EXT SCH (09:25)
[2016-12-23 10:45] VITALS: BP 137/95
[2016-12-24] MEDS: CATHETER FLUSH 10 ML SYR IV PRN (08:00)
[2016-12-24] MEDS: VANCOMYCIN INJECTION 2,250 MG in NS IV 500 ML 500 ML IV SCH (08:00)
[2016-12-24] MEDS: SILVER SULFADIAZINE 50 GM CREAM EXT SCH (08:20)
[2016-12-24 10:09] VITALS: BP 171/105
[2016-12-25] MEDS: VANCOMYCIN INJECTION 2,250 MG in NS IV 500 ML 500 ML IV SCH (09:31)
[2016-12-25] MEDS: CATHETER FLUSH 10 ML SYR IV PRN ×2 (09:31→09:32)
[2016-12-25] MEDS: SILVER SULFADIAZINE 50 GM CREAM EXT SCH (09:32)
[2016-12-25 11:50] VITALS: BP 148/103
[2016-12-26] MEDS: VANCOMYCIN INJECTION 2,250 MG in NS IV 500 ML 500 ML IV SCH (08:47)
[2016-12-26] MEDS: CATHETER FLUSH 10 ML SYR IV PRN (08:47)
[2016-12-26] MEDS: SILVER SULFADIAZINE 50 GM CREAM EXT SCH (09:00)
[2016-12-26 09:32] VITALS: BP 121/80
[2016-12-27 09:00] VITALS: BP 151/102
[2016-12-27] MEDS: CATHETER FLUSH 10 ML SYR IV PRN ×2 (09:04→11:05)
[2016-12-27] MEDS: VANCOMYCIN INJECTION 2,250 MG in NS IV 500 ML 500 ML IV SCH (09:06)
[2016-12-27] MEDS: SILVER SULFADIAZINE 50 GM CREAM EXT SCH (10:00)
[2016-12-28] MEDS: CATHETER FLUSH 10 ML SYR IV PRN ×3 (09:44→11:48)
[2016-12-28] MEDS: VANCOMYCIN INJECTION 2,250 MG in NS IV 500 ML 500 ML IV SCH (09:45)
[2016-12-28] MEDS: SILVER SULFADIAZINE 50 GM CREAM EXT SCH (10:45)
[2016-12-28 11:50] VITALS: BP 130/93
[2016-12-29] MEDS: VANCOMYCIN INJECTION 2,250 MG in NS IV 500 ML 500 ML IV SCH (09:40)
[2016-12-29 11:51] VITALS: BP 140/98
[2016-12-30 09:00] VITALS: BP 128/87
[2016-12-30] MEDS: VANCOMYCIN INJECTION 2,250 MG in NS IV 500 ML 500 ML IV SCH (09:00)
[2016-12-30] MEDS: CATHETER FLUSH 10 ML SYR IV PRN ×2 (09:00→10:58)
[2016-12-31] MEDS: SILVER SULFADIAZINE 50 GM CREAM EXT SCH (10:29)
[2016-12-31] MEDS: VANCOMYCIN INJECTION 2,250 MG in NS IV 500 ML 500 ML IV SCH (10:29)
[2016-12-31 10:37] VITALS: BP 144/98
[2017-01-01] MEDS: CATHETER FLUSH 10 ML SYR IV PRN (08:59)
[2017-01-01 09:00] VITALS: BP 147/106
[2017-01-01] MEDS: VANCOMYCIN INJECTION 2,250 MG in NS IV 500 ML 500 ML IV SCH (09:00)
[2017-01-01] MEDS: SILVER SULFADIAZINE 50 GM CREAM EXT SCH (10:30)
[2017-01-02] MEDS: VANCOMYCIN INJECTION 2,250 MG in NS IV 500 ML 500 ML IV SCH (09:16)
[2017-01-02 11:30] VITALS: BP 137/96
[2017-01-03] MEDS: VANCOMYCIN INJECTION 2,250 MG in NS IV 500 ML 500 ML IV SCH (10:20)
[2017-01-03] MEDS: CATHETER FLUSH 10 ML SYR IV PRN (10:20)
[2017-01-03 12:28] VITALS: BP 135/92
[2017-01-04] MEDS: CATHETER FLUSH 10 ML SYR IV PRN ×2 (09:14→11:25)
[2017-01-04] MEDS: VANCOMYCIN INJECTION 2,250 MG in NS IV 500 ML 500 ML IV SCH (09:15)
[2017-01-04] MEDS: SILVER SULFADIAZINE 50 GM CREAM EXT SCH (09:20)
[2017-01-04 11:25] VITALS: BP 139/98
[2017-01-05] MEDS: VANCOMYCIN INJECTION 2,250 MG in NS IV 500 ML 500 ML IV SCH (09:21)
[2017-01-05 10:08] VITALS: BP 125/95
[2017-01-05 16:31] VITALS: BP 125/95
[2017-01-06 09:20] VITALS: BP 132/92
[2017-01-06] MEDS: VANCOMYCIN INJECTION 2,250 MG in NS IV 500 ML 500 ML IV SCH (09:35)
[2017-01-06] MEDS: CATHETER FLUSH 10 ML SYR IV PRN ×2 (09:35→11:40)
[2017-01-07] MEDS: CATHETER FLUSH 10 ML SYR IV PRN ×2 (09:01→10:56)
[2017-01-07 09:02] VITALS: BP 123/91
[2017-01-07] MEDS: VANCOMYCIN INJECTION 2,250 MG in NS IV 500 ML 500 ML IV SCH (09:02)
[2017-01-07 11:00] VITALS: BP 123/91
[2017-01-08] MEDS: VANCOMYCIN INJECTION 2,250 MG in NS IV 500 ML 500 ML IV SCH (09:35)
[2017-01-08] MEDS: CATHETER FLUSH 10 ML SYR IV PRN ×2 (09:35→12:01)
[2017-01-08 11:45] VITALS: BP 135/97
[2017-01-09 08:46] VITALS: BP 129/94
[2017-01-09] MEDS: VANCOMYCIN INJECTION 2,250 MG in NS IV 500 ML 500 ML IV SCH (09:03)
[2017-01-09] MEDS: CATHETER FLUSH 10 ML SYR IV PRN ×2 (09:03→11:07)
[2017-01-10 09:04] VITALS: BP 128/87
[2017-01-10] MEDS: VANCOMYCIN INJECTION 2,250 MG in NS IV 500 ML 500 ML IV SCH (09:04)
[2017-01-11] MEDS: CATHETER FLUSH 10 ML SYR IV PRN (08:59)
[2017-01-11 09:00] VITALS: BP 132/81
[2017-01-11] MEDS: VANCOMYCIN INJECTION 2,250 MG in NS IV 500 ML 500 ML IV SCH (09:00)
[2017-01-12] MEDS: CATHETER FLUSH 10 ML SYR IV PRN (09:07)
[2017-01-12] MEDS: VANCOMYCIN INJECTION 2,250 MG in NS IV 500 ML 500 ML IV SCH (09:07)
[2017-01-12 11:24] VITALS: BP 124/100
[2017-01-13] MEDS: VANCOMYCIN INJECTION 2,250 MG in NS IV 500 ML 500 ML IV SCH (09:15)
[2017-01-14 13:55] VITALS: BP 130/86
[2017-01-14] MEDS: VANCOMYCIN INJECTION 2,250 MG in NS IV 500 ML 500 ML IV SCH (14:00)
[2017-01-15] MEDS: VANCOMYCIN INJECTION 2,250 MG in NS IV 500 ML 500 ML IV SCH (09:05)
[2017-01-15 09:17] VITALS: BP 151/98
[2017-01-15] MEDS: CATHETER FLUSH 10 ML SYR IV PRN (11:10)
[2017-01-15 11:15] VITALS: BP 151/98
[~2017-01-16] VITALS: Ht 170.2 cm; Wt 67.6 kg
[~2017-01-16 08:55] MED LIST changes: +ALTEPLASE 2 MG (CATHFLO) IV NR; -DEXTROSE 50% 50 ML (IMS) SYR ONE; +ONDANSETRON 4 MG/2 ML (SDV) Z0FRAN IVP ONE; +TROUGH ORDER-PHARMACY XX NR; +TROUGH ORDER-PHARMACY XX ONE; +VANCOMYCIN 2000 MG/NS 500 ML IVPB IV SCH; +WATER (STERILE) FOR INJECTION 20 ML ONE
[2017-01-16] MEDS: CATHETER FLUSH 10 ML SYR IV PRN ×2 (09:08→11:15)
[2017-01-16] MEDS: VANCOMYCIN INJECTION 2,250 MG in NS IV 500 ML 500 ML IV SCH (09:10)
[2017-01-16 11:30] VITALS: BP 170/97
== END 2017-01-23 10:41 | disposition home or self-care (01) ==
LOC: SDC 08:55
PROVIDERS: ATTEND Podiatrist Foot & Ankle Surgery
DX: M86.671 Other chronic osteomyelitis, right ankle and foot (principal); B95.62 Methicillin resistant Staphylococcus aureus infection as the cause of diseases classified elsewhere
CPT/HCPCS: 36415; 36592; 80202; 96365; 96366; 99211

== ENCOUNTER 2017-01-29 16:22 | Emergency (ER) | payer MEDICAID ==
[~2017-01-29] VITALS: Ht 170.2 cm; Wt 68.0 kg
[~2017-01-29 16:22] MED LIST changes: -DEXAMETHASONE PF 10 MG/ML (DECADRON) VIAL ONE; -HYDROcodone/APAP 10 MG/325 MG (LORTAB) TAB PO ONE; -LEVO750T9 PO; -diphenhydrAMINE 25 MG TAB (BENADRYL) PO ONE
--- NOTE | 2017-01-29 18:32 | ED General ---
General Chief Complaint: Allergic Reaction Stated Complaint: RASH/RIGHT FOOT SWOLLEN/PAIN Nursing Triage Note: PT HERE WITH C/O RASH ALL OVER BODY AND FOOT PAIN. PT IS TAKING A STEROID FOR THE RASH. Nursing Sepsis Screen: No Definite Risk Source of Information: Patient Exam Limitations: No Limitations History of Present Illness Time Seen by Provider: 18:32 Allergies and Home Medications Allergies Coded Allergies: No Known Drug Allergies (Unverified , 10/22/16) Home Medications Buspirone HCl 15 Mg Tablet, 30 MG PO TID, (Reported) TAKES 2 (15MG) TABLETS Gabapentin 800 Mg Tablet, 800 MG PO TID, (Reported) Hydrocodone/Acetaminophen 1 Each Tablet, 1-2 TAB PO Q4H PRN for PAIN-MODERATE, # 30 Ref 0 Prescribed by: WYATT JIN on 12/19/16 0734 Hydroxyzine Pamoate 50 Mg Capsule, 50 MG PO TID PRN for ANXIETY, (Reported) Insulin Degludec 100 Unit/1 Ml Insuln.pen, 30 UNITS SQ HS, (Reported) Insulin Lispro 100 Unit/1 Ml Insuln.pen, 10 UNITS SQ SLIDING/SCALE, (Reported) Lisinopril 5 Mg Tablet, 10 MG PO DAILY, (Reported) TAKES 2 (5 MG) TABLETS Naproxen 500 Mg Tablet, 500 MG PO BID, (Reported) Omeprazole 40 Mg Capsule.dr, 40 MG PO DAILY PRN for INDIGESTION, (Reported) Paroxetine HCl 20 Mg Tablet, 20 MG PO DAILY, (Reported) Silver Sulfadiazine 20 Gm Cream..g., 20 GM TP DAILY for 30 Days, Ref 0 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 Prescribed by: ASHWIN HARRIS on 12/19/16 0951 Vancomycin HCl 1 Gm Vial, 2 GM IV DAILY for 28 Days Prescribed by: WYATT JIN on 12/19/16 0740 Past Cthfulk-Hqwjco-Ajqkox Hx Patient Social History Alcohol Use: Denies Use Recreational Drug Use: No Type Used: Cigarettes 2nd Hand Smoke Exposure: No Recent Foreign Travel: No Contact w/Someone Who Travel: No Recent Infectious Disease Expo: No Recent Hopitalizations: Yes Immunizations Up To Date Tetanus Booster (TDap): Unknown PED Vaccines UTD: No Date of Influenza Vaccine: Jul 03, 2016 Seasonal Allergies Seasonal Allergies: No Surgeries HX Surgeries: Yes (OPEN HEART SX AN , RIGHT FOOT SURGERY ON SUNDAY, ) Surgeries: Cardiac, Section, Orthopedic Respiratory Hx Respiratory Disorders: No Cardiovascular Hx Cardiac Disorders: Yes (CARDIAC SURGERY AN ) Neurological Hx Neurological Disorders: Yes Neurological Disorders: Neuropathy, Seizure Disorder Genitourinary Hx Genitourinary Disorders: No Gastrointestinal Hx Gastrointestinal Disorders: Yes (CELIAC DISEASE) Musculoskeletal Hx Musculoskeletal Disorders: Yes (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) Endocrine Hx Endocrine Disorders: Yes (PT HAS INSULIN PUMP) Endocrine Disorders: Diabetes, Insulin dep HEENT HX ENT Disorders: No Loss of Vision: Denies Hearing Impairment: Denies Cancer Hx Cancer: No Psychosocial Hx Psychiatric Problems: Yes Behavioral Health Disorders: Anxiety Integumentary HX Skin/Integumentary Disorder: No Blood Transfusions Hx Blood Disorders: Yes (HEP C+) Family Medical History Significant Family History: No Pertinent Family Hx Family Medial History: Physical Exam Vital Signs Vital Sign - Last 12Hours 01/29/17 17:49 Temp 98.5 Pulse 98 Resp 18 B/P (MAP) 119/79 Pulse Ox 98 O2 Delivery Room Air Capillary Refill : Less Than 3 Seconds Progress/Results/Core Measures Results/Orders Lab Results Laboratory Tests Test 01/29/17 19:14 01/29/17 20:18 Range/Units Urine Opiates Screen POSITIVE H NEGATIVE Urine Oxycodone Screen NEGATIVE NEGATIVE Urine Methadone Screen NEGATIVE NEGATIVE Urine Propoxyphene Screen NEGATIVE NEGATIVE Urine Barbiturates Screen NEGATIVE NEGATIVE Ur Tricyclic Antidepressants Screen NEGATIVE NEGATIVE Urine Phencyclidine Screen NEGATIVE NEGATIVE Urine Amphetamines Screen NEGATIVE NEGATIVE Urine Methamphetamines Screen NEGATIVE NEGATIVE Urine Benzodiazepines Screen NEGATIVE NEGATIVE Urine Cocaine Screen NEGATIVE NEGATIVE Urine Cannabinoids Screen NEGATIVE NEGATIVE White Blood Count 5.5 4.3-11.0 10^3/uL Red Blood Count 3.99 L 4.35-5.85 10^6/uL Hemoglobin 9.0 L 11.5-16.0 G/DL Hematocrit 29 L 35-52 % Mean Corpuscular Volume 72 L 80-99 FL Mean Corpuscular Hemoglobin 23 L 25-34 PG Mean Corpuscular Hemoglobin Concent 31 L 32-36 G/DL Red Cell Distribution Width 16.6 H 10.0-14.5 % Platelet Count 212 130-400 10^3/uL Mean Platelet Volume 10.6 H 7.4-10.4 FL Neutrophils (%) (Auto) 38 L 42-75 % Lymphocytes (%) (Auto) 27 12-44 % Monocytes (%) (Auto) 17 H 0-12 % Eosinophils (%) (Auto) 15 H 0-10 % Basophils (%) (Auto) 2 0-10 % Neutrophils # (Auto) 2.1 1.8-7.8 X 10^3 Lymphocytes # (Auto) 1.5 1.0-4.0 X 10^3 Monocytes # (Auto) 0.9 0.0-1.0 X 10^3 Eosinophils # (Auto) 0.8 H 0.0-0.3 10^3/uL Basophils # (Auto) 0.1 0.0-0.1 10^3/uL Neutrophils % (Manual) 48 % Lymphocytes % (Manual) 31 % Monocytes % (Manual) 1 % Eosinophils % (Manual) 17 % Basophils % (Manual) 3 % Band Neutrophils 0 % Hypochromasia SLIGHT Microcytosis SLIGHT Sodium Level 139 135-145 MMOL/L Potassium Level 5.7 H 3.6-5.0 MMOL/L Chloride Level 109 H 98-107 MMOL/L Carbon Dioxide Level 20 L 21-32 MMOL/L Anion Gap 10 5-14 MMOL/L Blood Urea Nitrogen 18 7-18 MG/DL Creatinine 1.18 0.60-1.30 MG/DL Estimat Glomerular Filtration Rate 53 BUN/Creatinine Ratio 15 Glucose Level 278 H 70-105 MG/DL Calcium Level 8.7 8.5-10.1 MG/DL Total Bilirubin 0.1 0.1-1.0 MG/DL Aspartate Amino Transf (AST/SGOT) 20 5-34 U/L Alanine Aminotransferase (ALT/SGPT) 27 0-55 U/L Alkaline Phosphatase 139 H 40-136 U/L C-Reactive Protein High Sensitivity 0.25 0.00-0.50 MG/DL Total Protein 6.2 L 6.4-8.2 G/DL Albumin 3.5 3.2-4.5 G/DL Noni Liu - KARRIE BENTON Cbc With Automated Diff (01/29/17 19:25) Comprehensive Metabolic Panel (01/29/17 19:25) Hs C Reactive Protein (01/29/17 19:25) Fentanyl Injection (Sublimaze Injection (01/29/17 19:25) Diphenhydramine Injection (Benadryl Inje (01/29/17 19:25) Famotidine Tablet (Pepcid Tablet) (01/29/17 19:25) Foot, Right, 3 View (01/29/17 20:23) Manual Differential (01/29/17 20:18) Drug Screen Stat (Urine) (01/29/17 20:36) Morphine Injection (Morphine Injection (01/29/17 20:36) Hydrocodone/Apap 10/325 Tablet (Lortab 1 (01/29/17 20:43) Diphenhydramine Tablet (Benadryl Tablet) (01/29/17 21:30) Dexamethasone Pf Injection (Decadron Pf (01/29/17 21:28) Medications Given in ED Current Medications Medications Dose Ordered Sig/Dipti Route Start Time Stop Time Status Last Admin Dose Admin Diphenhydramine HCl 25 mg ONCE ONCE PO 01/29/17 21:30 01/29/17 21:31 DC 01/29/17 21:35 25 MG Vital Signs/I&O Vital Sign - Last 12Hours 01/29/17 17:49 Temp 98.5 Pulse 98 Resp 18 B/P (MAP) 119/79 Pulse Ox 98 O2 Delivery Room Air Blood Pressure Mean: 92 Departure Impression Impression: Primary Impression: Drug-induced skin rash Additional Impression: Osteomyelitis of foot Disposition: 01 HOME, SELF-CARE Condition: Improved Departure-Patient Inst. Decision time for Depature: 21:27 Referrals: [facility] (PCP) Primary Care Physician DAVE GRAFF (Family) Primary Care Physician Patient Instructions: Drug Allergy Add. Discharge Instructions: All discharge instructions reviewed with patient and/or family. Voiced understanding. Medications as instructed. Stop the vancomycin immediately. Benadryl [id number] 25-50 mg by mouth every 4 hours as needed for itching and rash. Claritin, Zyrtec, or Erika [id number]-[id number] as directed for rash and itching. [facility] staff will contact you tomorrow to schedule an outpatient appointment time and for possibly scheduling outpatient wound care. Return to the emergency department for worsened symptoms or any other concerns. Scripts Sulfamethoxazole/Trimethoprim (Bactrim Ds Tablet) 1 Each Tablet 1 EACH PO BID, #14 TAB 0 Refills Prov: KARRIE BENTON 01/29/17 Levofloxacin (Levaquin) 750 Mg Tablet 750 MG PO DAILY, #7 TAB 0 Refills Prov: KARRIE BENTON 01/29/17 KARRIE BENTON January 29, 2017 18:32
[2017-01-29] MEDS ORDERED: diphenhydrAMINE 50 MG/ML INJ (BENADRYL) IV STA (19:25)
[2017-01-29] MEDS ORDERED: FAMOTIDINE 20 MG (PEPCID) TABLET PO STA (19:25)
[2017-01-29] MEDS ORDERED: fentaNYL INJECTION 100 MCG/2 ML AMP IVP STA (19:25)
[2017-01-29 20:27] LABS: BASOPHILS # (AUTO) 0.1 10^3/uL (0.0-0.1); BASOPHILS % (AUTO) 2 % (0-10); EOSINOPHILS # (AUTO) 0.8 10^3/uL (0.0-0.3); EOSINOPHILS % (AUTO) 15 % (0-10); LYMPHOCYTES # (AUTO) 1.5 X 10^3 (1.0-4.0); LYMPHOCYTES % (AUTO) 27 % (12-44); MEAN CORPUSCULAR HEMOGLOBIN 23 PG (25-34); MEAN CORPUSCULAR HGB CONC 31 G/DL (32-36); MEAN CORPUSCULAR VOLUME 72 FL (80-99); MEAN PLATELET VOLUME 10.6 FL (7.4-10.4); MONOCYTES # (AUTO) 0.9 X 10^3 (0.0-1.0); MONOCYTES % (AUTO) 17 % (0-12); NEUTROPHILS # (AUTO) 2.1 X 10^3 (1.8-7.8); NEUTROPHILS % (AUTO) 38 % (42-75); PLATELET COUNT 212 10^3/uL (130-400); RED BLOOD COUNT 3.99 10^6/uL (4.35-5.85); RED CELL DISTRIBUTION WIDTH 16.6 % (10.0-14.5); WHITE BLOOD COUNT 5.5 10^3/uL (4.3-11.0)
[2017-01-29] MEDS ORDERED: morphine INJ 10 MG/ML 1ML (SYR OR VIAL) IVP STA (20:36)
[2017-01-29 20:43] LABS: ALBUMIN 3.5 G/DL (3.2-4.5); BILIRUBIN,TOTAL 0.1 MG/DL (0.1-1.0); CALCIUM 8.7 MG/DL (8.5-10.1); CREATININE SERUM 1.18 MG/DL (0.60-1.30); POTASSIUM 5.7 MMOL/L (3.6-5.0); TOTAL PROTEIN 6.2 G/DL (6.4-8.2); hs C REACTIVE PROTEIN 0.25 MG/DL (0.00-0.50)
[2017-01-29] MEDS ORDERED: HYDROcodone/APAP 10 MG/325 MG (LORTAB) TAB PO STA (20:43)
[2017-01-29 20:46] LABS: BAND NEUTROPHILS 0 %; BASOPHILS % (MANUAL) 3 %; EOSINOPHILS % (MANUAL) 17 %; HYPOCHROMASIA SLIGHT; LYMPHOCYTES % (MANUAL) 31 %; MICROCYTOSIS SLIGHT; NEUTROPHILS % (MANUAL) 48 %
--- NOTE | 2017-01-29 20:55 | Diagnostic Imaging Report ---
INDICATION: Persistent right foot pain and swelling COMPARISON STUDIES: Right foot from 12-14-16. FINDINGS: Previous partial amputation of the left second digit is again identified. The destructive changes in the distal aspect of the proximal phalanx of the great toe are again identified. These demonstrate increasing cortication at the end of this consistent with some healing. The obstructive changes in the distal aspect of the third metatarsal appears stable. Mild periosteal reaction of the fourth metatarsal head is more apparent. IMPRESSION: Obstructive process of the first proximal phalanx is improving. The destructive process of the third distal metatarsal is stable. Minimal destructive process of the distal fourth metatarsal has advanced. Dictated by: Dictated on workstation # [id number]
[2017-01-29] MEDS ORDERED: DEXAMETHASONE PF 10 MG/ML (DECADRON) VIAL IV STA (21:28)
[2017-01-29] MEDS ORDERED: diphenhydrAMINE 25 MG TAB (BENADRYL) PO ONE (21:30)
[2017-01-29] MEDS ORDERED: LEVO750T9 PO (21:41)
[2017-01-29] MEDS ORDERED: SULF1TAB35 PO (21:41)
[2017-01-29 21:55] VITALS: BP 0/0
== END 2017-01-29 21:54 | disposition home or self-care (01) ==
LOC: EDUNIT# 16:22 → ER 16:23
DX: L27.0 Generalized skin eruption due to drugs and medicaments taken internally (principal); E11.69 Type 2 diabetes mellitus with other specified complication; M86.9 Osteomyelitis, unspecified
CPT/HCPCS: 36415; 73630; 80053; 80306; 85007; 85027; 86141; 96374; 96375; 99282

== ENCOUNTER → 2017-01-29 | Emergency (ER) | payer MEDICAID ==
[~2017-01-29] MED LIST changes: -ALTEPLASE 2 MG (CATHFLO) IV NR; +DEXAMETHASONE PF 10 MG/ML (DECADRON) VIAL ONE; +HYDROcodone/APAP 10 MG/325 MG (LORTAB) TAB PO ONE; +LEVO750T9 PO; -ONDANSETRON 4 MG/2 ML (SDV) Z0FRAN IVP ONE; -TROUGH ORDER-PHARMACY XX NR; -TROUGH ORDER-PHARMACY XX ONE; -VANCOMYCIN 2000 MG/NS 500 ML IVPB IV SCH; -WATER (STERILE) FOR INJECTION 20 ML ONE; +diphenhydrAMINE 25 MG TAB (BENADRYL) PO ONE
== END | disposition left against medical advice (07) ==
LOC: EDUNIT# 12:57 → ER 12:59
DX: M25.571 Pain in right ankle and joints of right foot (principal); Z53.21 Procedure and treatment not carried out due to patient leaving prior to being seen by health care provider

== ENCOUNTER 2017-02-06 12:15 | Outpatient (RCR) | payer MEDICAID ==
[2017-01-19 18:55] VITALS: BP 136/89
[2017-01-19] MEDS: VANCOMYCIN INJECTION 2,250 MG in NS IV 500 ML 500 ML IV SCH (19:00)
[2017-01-19 19:08] VITALS: BP 136/89
[2017-01-19 19:10] VITALS: BP 136/89
[2017-01-19 21:40] VITALS: BP 136/89
[2017-01-19 22:05] LABS: CALCIUM 8.5 MG/DL (8.5-10.1); CREATININE SERUM 1.36 MG/DL (0.60-1.30); POTASSIUM 5.4 MMOL/L (3.6-5.0)
[2017-01-20] MEDS: VANCOMYCIN INJECTION 2,250 MG in NS IV 500 ML 500 ML IV SCH (19:52)
[2017-01-20 20:00] VITALS: BP 132/92
[2017-01-20 21:00] VITALS: BP 132/92
[2017-01-21 18:35] VITALS: BP 136/84
[2017-01-21 19:26] VITALS: BP_SYST 136; BP_SYST 138; BP_DIAS 84; BP_DIAS 88
[2017-01-21] MEDS: VANCOMYCIN INJECTION 2,250 MG in NS IV 500 ML 500 ML IV SCH (19:26)
[2017-01-22] MEDS: CATHETER FLUSH 10 ML SYR IV PRN ×2 (14:09→16:15)
[2017-01-22 14:13] VITALS: BP 118/78
[2017-01-22 16:20] VITALS: BP 118/78
[2017-01-23] MEDS: VANCOMYCIN INJECTION 2,250 MG in NS IV 500 ML 500 ML IV SCH (10:42)
[2017-01-23 13:05] VITALS: BP 127/68
[2017-01-24 09:12] VITALS: BP 134/84
[2017-01-24] MEDS: VANCOMYCIN INJECTION 2,250 MG in NS IV 500 ML 500 ML IV SCH (09:12)
[2017-01-24] MEDS: CATHETER FLUSH 10 ML SYR IV PRN (09:12)
--- NOTE | 2017-01-24 10:46 | Physician Query-Final Dx ---
MARION DURHAM 01/24/17 1046: Clinic Account Progress/Dx Physician Query: Please give a diagnosis for the Vancomycin treatment thank you Date of Service January 24, 2017 at 08:59 DESIRAE MAURICE MD 01/25/17 1141: Clinic Account Progress/Dx DIAGNOSIS: Diagnosis Osteomyelitis MARVAKARLEY WAYLEY January 24, 2017 10:46 DESIRAE MAURICE MD January 25, 2017 11:41
[2017-01-24 12:39] VITALS: BP 134/84
[2017-01-25] MEDS: VANCOMYCIN INJECTION 2,250 MG in NS IV 500 ML 500 ML IV SCH (09:20)
[2017-01-25 09:45] VITALS: BP 131/98
[2017-01-26] MEDS: CATHETER FLUSH 10 ML SYR IV PRN (10:00)
[2017-01-26 11:00] VITALS: BP 104/86
[2017-01-26] MEDS: VANCOMYCIN 2000 MG/NS 500 ML IVPB IV SCH ×2 (11:00)
[2017-01-26 13:10] VITALS: BP 104/86
[2017-01-27] MEDS: VANCOMYCIN 2000 MG/NS 500 ML IVPB IV SCH ×2 (09:40)
[2017-01-27] MEDS: CATHETER FLUSH 10 ML SYR IV PRN ×2 (09:41→11:46)
[2017-01-27 11:59] VITALS: BP 123/81
[2017-01-28 13:20] VITALS: BP 134/81
[2017-01-28] MEDS: VANCOMYCIN 2000 MG/NS 500 ML IVPB IV SCH ×2 (13:37)
[2017-01-28 15:47] VITALS: BP 134/81
[2017-01-28 15:57] VITALS: BP 127/89
[2017-01-29 13:35] VITALS: BP 125/85
[2017-01-29] MEDS: CATHETER FLUSH 10 ML SYR IV PRN (13:56)
[2017-01-29] MEDS: VANCOMYCIN 2000 MG/NS 500 ML IVPB IV SCH ×2 (13:56)
[2017-01-31] MEDS: CATHETER FLUSH 10 ML SYR IV PRN (13:45)
[2017-01-31 14:33] VITALS: BP 109/73
[2017-02-01] MEDS: CATHETER FLUSH 10 ML SYR IV PRN ×2 (09:41→11:47)
[2017-02-01] MEDS: VANCOMYCIN 2000 MG/NS 500 ML IVPB IV SCH ×2 (09:41)
[2017-02-01 09:49] VITALS: BP_SYST 109; BP_SYST 117; BP_DIAS 73; BP_DIAS 84
[2017-02-02] MEDS: VANCOMYCIN 2000 MG/NS 500 ML IVPB IV SCH ×2 (09:23)
[2017-02-02 11:30] VITALS: BP 114/79
[~2017-02-06] VITALS: Ht 170.2 cm; Wt 68.0 kg
[~2017-02-06 12:15] MED LIST changes: +ALTEPLASE 2 MG (CATHFLO) IV ONE; +LEVO750T9 PO; +NS (IVPB) 250 ML ONE; +TROUGH ORDER-PHARMACY XX NR; +VANCOMYCIN 1000 MG/VIAL ONE; +VANCOMYCIN INJECTION 2,250 MG in NS IV 500 ML 500 ML IV SCH; +WATER (STERILE) FOR INJECTION 20 ML ONE
[2017-04-13] MEDS ORDERED: [UNRECOGNIZED DRUG - SUPPLY] (17:27)
== END 2017-04-19 | disposition home or self-care (01) ==
LOC: 4THo 12:15
PROVIDERS: ATTEND Family Medicine
DX: M86.9 Osteomyelitis, unspecified (principal)
CPT/HCPCS: 36415; 36592; 36593; 80048; 80202; 96365; 96366; 99211

== ENCOUNTER 2017-04-13 15:36 | Emergency (ER) | payer MEDICAID ==
[~2017-04-13] VITALS: Ht 170.2 cm; Wt 68.0 kg
[~2017-04-13 15:36] MED LIST changes: -ALTEPLASE 2 MG (CATHFLO) IV ONE; -NS (IVPB) 250 ML ONE; -TROUGH ORDER-PHARMACY XX NR; -VANCOMYCIN 1000 MG/VIAL ONE; -VANCOMYCIN INJECTION 2,250 MG in NS IV 500 ML 500 ML IV SCH; -WATER (STERILE) FOR INJECTION 20 ML ONE
--- OUTSIDE RECORDS SUMMARY | 2017-04-13 15:45 | XMS REPORT | Continuity of Care Document ---
Author Author [facility] Organization [facility] Address [facility] [address] [place] [id number] Phone Unavailable Support Name Relationship Address Phone LAYA ALEX DO Caregiver [address] [place], [place] [id number] BASSAM STEVENSON Next Of Kin [address] [place] [address] Insurance Providers Payer Name Policy Number Subscriber Name Relationship [employer] [id number] She Galvin 16 Self / Same As Patient Advance Directives Directive Response Recorded Date/Time Advance Directives No 03/16/15 4:11pm Living Will No 03/16/15 4:11pm Health Care Proxy No 11/04/15 12:59pm Power of Supervisor [employer] for Health Care No 03/16/15 4:11pm Organ, Tissue, or Eye Donor No 03/16/15 4:11pm Do you have a signed organ donor card? No 03/16/15 4:11pm Chief Complaint and Reason for Visit Chief Complaint ABDOMINAL PAIN Reason for Visit Abdominal pain Problems Active Problems Medical Problem Onset Date Status Abdominal pain Unknown Acute Hyperglycemia Unknown Acute Medication refill [...] Mg Oral Three Times A Day 11/04/15 Past Home Medications Medication Directions Ordered Status Insulin Detemir* 100 U/Ml Vial, 13 Unit Sub-Q Twice A Day 03/16/15 Discontinued Social History Social History Problem Response Recorded Date/Time Smoking Status Current every day smoker 03/16/2015 4:50pm Alcohol Use none 11/04/2015 1:41pm Drug Use none 11/04/2015 1:41pm Employment Employed 11/04/2015 1:41pm Query Response Start Date Stop Date Smoking Status Current every day smoker Hospital Discharge Instructions No hospital discharge instructions. Plan of Care Discharge Date 11/04/15 3:56pm Condition at Discharge Stable Instructions/Education Provided Abdominal Pain (ED) Prescriptions See Medication Section Referrals ANSON SAPP - Additional Instructions/Education Please return in 12 hours for recheck or sooner if worsens Functional Status Query Response Date Recorded Patient Behavior Cooperative Appropriate November 04, 2015 1:13pm Allergies, Adverse Reactions, Alerts No known allergies. Immunizations Name Given Type Hx Diphtheria, Pertussis, Tetanus Vaccination Unknown Historical Hx Influenza Vaccination Y FALL 2014 Historical Hx Pneumococcal Vaccination No Historical Vital Signs Acute Vital Signs Vital Response Date/Time Temperature (Fahrenheit) 98.0 degrees F (97.6 - 99.5) 11/04/2015 3:50pm Temperature Source Temporal Artery 11/04/2015 3:50pm Pulse Rate (adult) 81 bpm (60 - 90) 11/04/2015 3:50pm Respiratory Rate 16 bpm (12 - 24) 11/04/2015 3:50pm Blood Pressure 109/80 mm Hg 11/04/2015 3:50pm O2 Sat by Pulse Oximetry 98 % (90 - 100) 11/04/2015 3:50pm Oxygen Delivery Method 11/04/2015 3:50pm Pain Location Body Site Modifier 11/04/2015 2:24pm Height 5 ft 7 in Weight 132 lb Body Mass Index 20.0 kg/m^2 Results Laboratory Results Test Name Result Units Flags Reference Collection Date/Time Result Date/ Time Comments White Blood Count 7.3 K/uL 4.8-10.8 11/04/2015 2:39pm 11/04/2015 2: 48pm Red Blood Count 5.05 M/uL 4.20-5.40 11/04/2015 2:39pm 11/04/2015 2: 48pm Hemoglobin 14.0 gm/dL 12.0-16.0 11/04/2015 2:39pm 11/04/2015 2:48pm Hematocrit 42.0 % 37.0-47.0 11/04/2015 2:39pm 11/04/2015 2:48pm Mean Corpuscular Volume 83.3 fL 81.0-99.0 11/04/2015 2:39pm 11/04/2015 2:48pm Mean Corpuscular Hemoglobin 27.8 pg 27.0-31.0 11/04/2015 2:39pm 2015 2:48pm Mean Corpuscular Hemoglobin Concent 33.4 g/dL 30.0-37.0 11/04/2015 2: 39pm 11/04/2015 2:48pm Red Cell Distribution Width 13.6 % 11.5-14.5 11/04/2015 2:39pm 2015 2:48pm Platelet Count 248 K/uL 130-400 11/04/2015 2:39pm 11/04/2015 2:48pm Mean Platelet Volume 9.0 fL 7.4-10.4 11/04/2015 2:39pm 11/04/2015 2: 48pm Neutrophils (%) (Auto) 50.2 % 42.2-75.2 11/04/2015 2:39pm 11/04/2015 2: 48pm Lymphocytes (%) (Auto) 36.9 % 20.5-51.1 11/04/2015 2:39pm 11/04/2015 2: 48pm Monocytes (%) (Auto) 4.5 % 1.7-9.3 11/04/2015 2:39pm 11/04/2015 2:48pm Eosinophils (%) (Auto) 4.1 % H 0-3 11/04/2015 2:39pm 11/04/2015 2:48pm Basophils (%) (Auto) 4.3 % H 0.0-1.0 11/04/2015 2:39pm 11/04/2015 2: 48pm Neutrophils # (Auto) 3.7 K/uL 2.0-6.9 11/04/2015 2:39pm 11/04/2015 2: 48pm Lymphocytes # (Auto) 2.7 K/uL 1.2-3.4 11/04/2015 2:39pm 11/04/2015 2: 48pm Monocytes # (Auto) 0.3 K/uL 0.1-0.6 11/04/2015 2:39pm 11/04/2015 2: 48pm Eosinophils # (Auto) 0.3 K/uL 0.0-0.7 11/04/2015 2:39pm 11/04/2015 2: 48pm Basophils # (Auto) 0.3 K/uL H 0.0-0.2 11/04/2015 2:39pm 11/04/2015 2: 48pm Random Glucose 268 mg/dL H 70-110 11/04/2015 2:39pm 11/04/2015 2:57pm Blood Urea Nitrogen 27 mg/dL H 7-18 11/04/2015 2:39pm 11/04/2015 2:57pm Creatinine 1.1 mg/dL H 0.55-1.02 11/04/2015 2:39pm 11/04/2015 2:57pm Sodium Level 138 mEq/L 136-145 11/04/2015 2:39pm 11/04/2015 2:57pm Potassium Level 4.4 mEq/L 3.5-5.0 11/04/2015 2:39pm 11/04/2015 2:57pm Chloride Level 106 mEq/L 98-107 11/04/2015 2:39pm 11/04/2015 2:57pm Carbon Dioxide Level 22.7 mEq/L 21-32 11/04/2015 2:39pm 11/04/2015 2: 57pm Calcium Level 9.2 mg/dL 8.8-10.5 11/04/2015 2:39pm 11/04/2015 2:57pm Total Protein 7.4 gm/dL 6.4-8.2 11/04/2015 2:39pm 11/04/2015 2:57pm Albumin 3.9 gm/dL 3.4-5.0 11/04/2015 2:39pm 11/04/2015 2:57pm Total Bilirubin 0.50 mg/dL 0.00-1.00 11/04/2015 2:39pm 11/04/2015 2: 57pm Aspartate Amino Transf (AST/SGOT) 12 U/L L 15-37 11/04/2015 2:39pm 11/03 2:57pm Alanine Aminotransferase (ALT/SGPT) 23 U/L 12-78 11/04/2015 2:39pm 11/2015 2:57pm Total Alkaline Phosphatase 81 U/L 46-116 11/04/2015 2:39pm 11/04/2015 2 :57pm Lipase 156 U/L 65-230 11/04/2015 2:39pm 11/04/2015 2:57pm Venous Blood pH 7.43 H 7.31-7.41 11/04/2015 2:39pm 11/04/2015 2:49pm Venous Blood pCO2 at Patient Temp 31 mmHg L 41-51 11/04/2015 2:39pm 11/2015 2:49pm Venous Blood pO2 at Patient Temp 66 mmHg 11/04/2015 2:39pm 2015 2:49pm Venous Blood HCO3 21 mmHg L 23-28 11/04/2015 2:39pm 11/04/2015 2:49pm Venous Blood Total Carbon Dioxide 22 mmHg L 24-29 11/04/2015 2:39pm 11/2015 2:49pm Venous Blood Base Excess -4.0 mEq/L L -2.0-3.0 11/04/2015 2:39pm 2015 2:49pm Venous Blood O2 Saturation (Calc) 94.0 % 11/04/2015 2:39pm 2015 2:49pm Urine Color YELLOW YELLOW 11/04/2015 3:00pm 11/04/2015 3:14pm Urine Appearance CLEAR CLEAR 11/04/2015 3:00pm 11/04/2015 3:14pm Urine Glucose (UA) 3+ (1000 mg/dl) mg/dL H NEGATIVE 11/04/2015 3:00pm 3:14pm Urine Bilirubin NEGATIVE NEGATIVE 11/04/2015 3:00pm 11/04/2015 3: 14pm Urine Ketones NEGATIVE mg/dL NEGATIVE 11/04/2015 3:00pm 11/04/2015 3: 14pm Urine Specific [place] 1.020 1.010-1.025 11/04/2015 3:00pm 2015 3:14pm Urine Occult Blood NEGATIVE NEGATIVE 11/04/2015 3:00pm 11/04/2015 3: 14pm Urine pH 7.0 5.0-8.0 11/04/2015 3:00pm 11/04/2015 3:14pm Urine Protein TRACE mg/dL H NEGATIVE 11/04/2015 3:00pm 11/04/2015 3: 14pm Urine Urobilinogen 0.2 mg/dL E.U./dL 0.2-1.0 11/04/2015 3:00pm 2015 3:14pm Urine Nitrate NEGATIVE NEGATIVE 11/04/2015 3:00pm 11/04/2015 3:14pm Urine Leukocyte Esterase NEGATIVE NEGATIVE 11/04/2015 3:00pm 2015 3:14pm Urine RBC NEGATIVE /hpf 0 11/04/2015 3:00pm 11/04/2015 3:19pm Urine WBC NEGATIVE /hpf 0-4 11/04/2015 3:00pm 11/04/2015 3:19pm Urine Squamous Epithelial Cells 5-10 /hpf H 0-1 11/04/2015 3:00pm 2015 3:19pm Urine Bacteria NEGATIVE NEGATIVE 11/04/2015 3:00pm 11/04/2015 3:19pm Urine Mucus FEW H NEGATIVE 11/04/2015 3:00pm 11/04/2015 3:19pm Human Chorionic Gonadotropin, Qual NEGATIVE NEG 11/04/2015 2:39pm 11/2015 2:53pm Glomerular Filtration Rate Calc 61.2 mL/min 11/04/2015 2:39pm 2015 2:57pm Procedures No known history of procedures. Encounters Encounter Location Arrival/Admit Date Discharge/Depart Date Attending Provider Departed Emergency Room [facility] 11/04/15 1:01pm 11/04/15 3:56pm LAYA ALEX DO Recent Diagnosis
--- NOTE | 2017-04-13 16:21 | ED Lower Extremity ---
General Chief Complaint: Lower Extremity Stated Complaint: RT FOOT SWELLING Nursing Triage Note: PT REPORTS R FOOT SWELLING. SHE HAS BEEN SEEN AND TX AT THE WALK IN CLINIC YESTERDAY FOR SAME SYMPTOMS. Nursing Sepsis Screen: No Definite Risk History of Present Illness Time seen by provider: 16:00 Initial Comments Evaluation for right foot swelling. The patient has an ulcer that is healing over the first metatarsal head on the right plantar surface of her foot. She was recently started on Keflex 2 days ago for cellulitis in the foot. She reports since last admission she was in the [facility], she denies using any illicit drugs, she is currently living in the women's assisted. She is taking the Keflex as directed. She was also recently treated with Bactrim DS for a urinary tract infection. She states that her blood sugars have been very labile anywhere from 47 -200 in the morning, she has had no changes in her diabetic management of medications that she does report that her eating habits have been very inconsistent. She is very concerned about swelling in the foot and has generalized mid foot pain. Pain/Injury Location: right foot Method of Injury: unknown Modifying Factors: Improves With Rest Allergies and Home Medications Allergies Coded Allergies: No Known Drug Allergies (Unverified , 10/22/16) Home Medications Buspirone HCl 15 Mg Tablet, 30 MG PO TID, (Reported) TAKES 2 (15MG) TABLETS Gabapentin 800 Mg Tablet, 800 MG PO TID, (Reported) Hydrocodone/Acetaminophen 1 Each Tablet, 1-2 TAB PO Q4H PRN for PAIN-MODERATE, # 30 Ref 0 Prescribed by: WYATT JIN on 12/19/16 0734 Hydroxyzine Pamoate 50 Mg Capsule, 50 MG PO TID PRN for ANXIETY, (Reported) Insulin Degludec 100 Unit/1 Ml Insuln.pen, 30 UNITS SQ HS, (Reported) Insulin Lispro 100 Unit/1 Ml Insuln.pen, 10 UNITS SQ SLIDING/SCALE, (Reported) Levofloxacin 750 Mg Tablet, 750 MG PO DAILY, #7 Ref 0 Prescribed by: KARRIE BENTON on 01/29/17 2141 Lisinopril 5 Mg Tablet, 10 MG PO DAILY, (Reported) TAKES 2 (5 MG) TABLETS Naproxen 500 Mg Tablet, 500 MG PO BID, (Reported) Omeprazole 40 Mg Capsule.dr, 40 MG PO DAILY PRN for INDIGESTION, (Reported) Paroxetine HCl 20 Mg Tablet, 20 MG PO DAILY, (Reported) Silver Sulfadiazine 20 Gm Cream..g., 20 GM TP DAILY for 30 Days, Ref 0 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 Prescribed by: ASHWIN HARRIS on 12/19/16 0951 Sulfamethoxazole/Trimethoprim 1 Each Tablet, 1 EACH PO BID, #14 Ref 0 Prescribed by: KARRIE BENTON on 01/29/17 2141 Vancomycin HCl 1 Gm Vial, 2 GM IV DAILY for 28 Days Prescribed by: WYATT JIN on 12/19/16 0740 Constitutional: no symptoms reported, see HPI Musculoskeletal: see HPI, joint pain (right forefoot and midfoot) All Other Systems Reviewed Negative Unless Noted: Yes Past Nvzrlsx-Cntmqw-Psncbv Hx Patient Social History Alcohol Use: Denies Use Recreational Drug Use: No Drug of Choice: PAST HX Smoking Status: Current Everyday Smoker Type Used: Cigarettes 2nd Hand Smoke Exposure: No Recent Foreign Travel: No Contact w/Someone Who Travel: No Recent Infectious Disease Expo: No Recent Hopitalizations: No Immunizations Up To Date Tetanus Booster (TDap): Unknown PED Vaccines UTD: No Date of Influenza Vaccine: Jul 03, 2016 Seasonal Allergies Seasonal Allergies: No Surgeries HX Surgeries: Yes (OPEN HEART SX AN INFANT, RIGHT FOOT SURGERY ON SUNDAY, ) Surgeries: Cardiac, Section, Orthopedic Respiratory Hx Respiratory Disorders: No Cardiovascular Hx Cardiac Disorders: Yes (CARDIAC SURGERY AN ) Neurological Hx Neurological Disorders: Yes Neurological Disorders: Neuropathy, Seizure Disorder Genitourinary Hx Genitourinary Disorders: No Gastrointestinal Hx Gastrointestinal Disorders: Yes (CELIAC DISEASE) Musculoskeletal Hx Musculoskeletal Disorders: Yes (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) Endocrine Hx Endocrine Disorders: Yes (PT HAS INSULIN PUMP) Endocrine Disorders: Diabetes, Insulin dep HEENT HX ENT Disorders: No Loss of Vision: Denies Hearing Impairment: Denies Cancer Hx Cancer: No Psychosocial Hx Psychiatric Problems: Yes Behavioral Health Disorders: Anxiety Integumentary HX Skin/Integumentary Disorder: No Blood Transfusions Hx Blood Disorders: Yes (HEP C+) Reviewed Nursing Assessment Reviewed/Agree w Nursing PMH: Yes Family Medical History Significant Family History: No Pertinent Family Hx Family Medial History: Physical Exam Vital Signs Vital Sign - Last 12Hours 04/13/17 15:45 Temp 98.1 Pulse 88 Resp 16 B/P (MAP) 129/90 Pulse Ox 98 O2 Delivery Room Air Capillary Refill : Less Than 3 Seconds General Appearance: WD/WN, no apparent distress HEENT: PERRL/EOMI, normal ENT inspection, TMs normal, pharynx normal Neck: non-tender, full range of motion, supple, normal inspection Cardiovascular: normal peripheral pulses (pedal pulses 2+ and symmetric), regular rate, rhythm, no edema, no murmur Respiratory: chest non-tender, lungs clear, normal breath sounds, no respiratory distress Gastrointestinal: normal bowel sounds, non tender, soft Back: normal inspection, no CVA tenderness, no vertebral tenderness Ankles: bilateral ankle non-tender, bilateral ankle normal inspection, bilateral ankle normal range of motion, bilateral ankle no evidence of injury Feet: right foot normal range of motion, right foot pain (tender to palpation midfoot and forefoot, generalized not spot specific), right foot swelling (1+ nonpitting), right foot other (healing ulcers on the plantar surface of the right foot, over the first and second webspace and by the fifth phalanx. No induration or fluctuance, trace erythema, no active drainage or warmth) Neurologic/Tendon: normal sensation, normal motor functions, normal tendon functions Neurologic/Psychiatric: no motor/sensory deficits, alert, normal mood/affect, oriented x 3 Skin: normal color, warm/dry Lymphatic: no adenopathy Progress/Results/Core Measures Results/Orders Lab Results Laboratory Tests Test 04/13/17 16:27 04/13/17 16:45 Range/Units White Blood Count 8.0 4.3-11.0 10^3/uL Red Blood Count 4.57 4.35-5.85 10^6/uL Hemoglobin 10.6 L 11.5-16.0 G/DL Hematocrit 34 L 35-52 % Mean Corpuscular Volume 74 L 80-99 FL Mean Corpuscular Hemoglobin 23 L 25-34 PG Mean Corpuscular Hemoglobin Concent 32 32-36 G/DL Red Cell Distribution Width 19.8 H 10.0-14.5 % Platelet Count 284 130-400 10^3/uL Mean Platelet Volume 11.6 H 7.4-10.4 FL Neutrophils (%) (Auto) 41 L 42-75 % Lymphocytes (%) (Auto) 37 12-44 % Monocytes (%) (Auto) 10 0-12 % Eosinophils (%) (Auto) 10 0-10 % Basophils (%) (Auto) 2 0-10 % Neutrophils # (Auto) 3.3 1.8-7.8 X 10^3 Lymphocytes # (Auto) 3.0 1.0-4.0 X 10^3 Monocytes # (Auto) 0.8 0.0-1.0 X 10^3 Eosinophils # (Auto) 0.8 H 0.0-0.3 10^3/uL Basophils # (Auto) 0.2 H 0.0-0.1 10^3/uL Erythrocyte Sedimentation Rate 20 0-20 MM/HR Sodium Level 140 135-145 MMOL/L Potassium Level 4.5 3.6-5.0 MMOL/L Chloride Level 110 H 98-107 MMOL/L Carbon Dioxide Level 21 21-32 MMOL/L Anion Gap 9 5-14 MMOL/L Blood Urea Nitrogen 20 H 7-18 MG/DL Creatinine 1.20 0.60-1.30 MG/DL Estimat Glomerular Filtration Rate 52 BUN/Creatinine Ratio 17 Glucose Level 63 L 70-105 MG/DL Calcium Level 9.4 8.5-10.1 MG/DL Total Bilirubin 0.2 0.1-1.0 MG/DL Aspartate Amino Transf (AST/SGOT) 33 5-34 U/L Alanine Aminotransferase (ALT/SGPT) 33 0-55 U/L Alkaline Phosphatase 141 H 40-136 U/L Total Protein 7.8 6.4-8.2 GM/DL Albumin 4.2 3.2-4.5 GM/DL Urine Color YELLOW Urine Clarity SLIGHTLY CLOUDY Urine pH 6 5-9 Urine Specific [place] 1.020 1.016-1.022 Urine Protein 2+ H NEGATIVE Urine Glucose (UA) NEGATIVE NEGATIVE Urine Ketones NEGATIVE NEGATIVE Urine Nitrite NEGATIVE NEGATIVE Urine Bilirubin NEGATIVE NEGATIVE Urine Urobilinogen NORMAL NORMAL MG/DL Urine Leukocyte Esterase 1+ H NEGATIVE Urine RBC (Auto) 1+ H NEGATIVE Urine RBC 0-2 /HPF Urine WBC 0-2 /HPF Urine Squamous Epithelial Cells 25-50 H /HPF Urine Crystals NONE /LPF Urine Bacteria TRACE /HPF Urine Casts NONE /LPF Urine Mucus NEGATIVE /LPF Urine Culture Indicated NO My Orders Orders - DANIEL ROSSP Foot, Right, 3 View (04/13/17 16:07) Cbc With Automated Diff (04/13/17 16:07) Comprehensive Metabolic Panel (04/13/17 16:07) Ua Culture If Indicated (04/13/17 16:07) Erythrocyte Sedimentation Rate (04/13/17 16:07) Vital Signs/I&O Vital Sign - Last 12Hours 04/13/17 04/13/17 15:45 17:29 Temp 98.1 98.1 Pulse 88 88 Resp 16 16 B/P (MAP) 129/90 Pulse Ox 98 98 O2 Delivery Room Air Blood Pressure Mean: 103 Progress Note : Time: 16:00 Progress Note Initial evaluation completed, recommended CBC CMP and UA. Will obtain x-ray of the right foot. 1650 labs all essentially normal, x-ray shows chronic nonunion of the fractures of the second third and fourth metatarsal heads. No obvious osteomyelitis noted. Discussed results with the patient, recommended firm soled shoe or rehabilitation shoe when ambulatory. She needs to follow-up with Dr. Tinajero or Dr. Coello. Diagnostic Imaging Diagonstic Imaging: Xray Plain Films/CT/US/NM/MRI: other (right foot) Comments NAME: [facility] REC#: [id number] PT STATUS: REG ER : 1985 PHYSICIAN: DANIEL ROSS ADMIT DATE: 04/13/17/ER Signed Date of Exam: 04/13/17 FOOT, RIGHT, 3 VIEW INDICATION: Skin infection. Evaluate for osteomyelitis. COMPARISON: 01/29/2017. TECHNIQUE: Three views of the right foot. FINDINGS: Status post partial amputation of the second toe. There are old nonunited fractures of the third and fourth metatarsal heads. Chronic fragmentation of the great toe proximal phalangeal head. No cortical indistinctness or osseous erosions to confirm osteomyelitis. Mild degenerative changes at the tarsometatarsal articulations. IMPRESSION: No radiographic confirmation of osteomyelitis. Due to multifocal chronic osseous fractures and fragmentation, consider MRI for further evaluation to better assess for osteomyelitis. 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 Decision time for Depature: 17:00 Referrals: [facility] (PCP) Primary Care Physician DAVE GRAFF (Family) Primary Care Physician Patient Instructions: Foot Fracture (DC) Add. Discharge Instructions: Wear Ted wrap and firm soled athletic shoe when ambulatory. Or obtain a rehabilitation shoe from via [employer] by the [facility] Follow up with Dr. Tinajero for chronic fractures in the right foot. Continue Keflex for the cellulitis. Return to emergency department for fever greater than 101, new injuries or problems. All discharge instructions reviewed with patient and/or family. Voiced understanding. Scripts [Rehabilitation shoe] No Conflict Check #1 0 Refills Right rehabilitation shoe. Diagnosis nonunion metatarsal fractures right foot Prov: DANIEL ROSS 04/13/17 Copy Copies To 1: DESIRAE MAURICE MD Copies To 2: BROKOS TINAJERO DPM, AMY ARNP Apr 13, 2017 16:21
[2017-04-13 16:32] LABS: BASOPHILS # (AUTO) 0.2 10^3/uL (0.0-0.1); BASOPHILS % (AUTO) 2 % (0-10); EOSINOPHILS # (AUTO) 0.8 10^3/uL (0.0-0.3); EOSINOPHILS % (AUTO) 10 % (0-10); LYMPHOCYTES % (AUTO) 37 % (12-44); MEAN CORPUSCULAR HEMOGLOBIN 23 PG (25-34); MEAN CORPUSCULAR HGB CONC 32 G/DL (32-36); MEAN CORPUSCULAR VOLUME 74 FL (80-99); MEAN PLATELET VOLUME 11.6 FL (7.4-10.4); MONOCYTES # (AUTO) 0.8 X 10^3 (0.0-1.0); MONOCYTES % (AUTO) 10 % (0-12); NEUTROPHILS # (AUTO) 3.3 X 10^3 (1.8-7.8); NEUTROPHILS % (AUTO) 41 % (42-75); PLATELET COUNT 284 10^3/uL (130-400); RED BLOOD COUNT 4.57 10^6/uL (4.35-5.85); RED CELL DISTRIBUTION WIDTH 19.8 % (10.0-14.5)
[2017-04-13 16:51] LABS: ERYTHROCYTE SEDIMENTATION RATE 20 MM/HR (0-20)
[2017-04-13 16:52] LABS: BILIRUBIN,URINE NEGATIVE (NEGATIVE); KETONES,URINE NEGATIVE (NEGATIVE); LEUKOCYTE ESTERASE ,URINE 1+ (NEGATIVE); NITRITE,URINE NEGATIVE (NEGATIVE); PH,URINE 6 (5-9); PROTEIN,URINE 2+ (NEGATIVE); UROBILINOGEN,URINE NORMAL (NORMAL)
[2017-04-13 16:53] LABS: ALBUMIN 4.2 GM/DL (3.2-4.5); BILIRUBIN,TOTAL 0.2 MG/DL (0.1-1.0); CALCIUM 9.4 MG/DL (8.5-10.1); CREATININE SERUM 1.2 MG/DL (0.60-1.30); POTASSIUM 4.5 MMOL/L (3.6-5.0); TOTAL PROTEIN 7.8 GM/DL (6.4-8.2)
--- NOTE | 2017-04-13 17:03 | Diagnostic Imaging Report ---
INDICATION: Skin infection. Evaluate for osteomyelitis. COMPARISON: 01/29/2017. TECHNIQUE: Three views of the right foot. FINDINGS: Status post partial amputation of the second toe. There are old nonunited fractures of the third and fourth metatarsal heads. Chronic fragmentation of the great toe proximal phalangeal head. No cortical indistinctness or osseous erosions to confirm osteomyelitis. Mild degenerative changes at the tarsometatarsal articulations. IMPRESSION: No radiographic confirmation of osteomyelitis. Due to multifocal chronic osseous fractures and fragmentation, consider MRI for further evaluation to better assess for osteomyelitis. Dictated by: Dictated on workstation # [id number]
[2017-04-13 17:04] LABS: SQUAMOUS EPITHELIAL CELL,UR 25-50 /HPF; WBC,URINE 0-2 /HPF
[2017-04-13] MEDS ORDERED: [UNRECOGNIZED DRUG - SUPPLY] (17:27)
[2017-04-13 17:29] VITALS: BP 129/90
== END 2017-04-13 17:30 | disposition home or self-care (01) ==
LOC: EDUNIT# 15:36 → ER 15:38
DX: S92.321A Displaced fracture of second metatarsal bone, right foot, initial encounter for closed fracture (principal); S92.331A Displaced fracture of third metatarsal bone, right foot, initial encounter for closed fracture; S92.341A Displaced fracture of fourth metatarsal bone, right foot, initial encounter for closed fracture; L03.115 Cellulitis of right lower limb; E11.621 Type 2 diabetes mellitus with foot ulcer; L97.511 Non-pressure chronic ulcer of other part of right foot limited to breakdown of skin; G40.909 Epilepsy, unspecified, not intractable, without status epilepticus; E11.40 Type 2 diabetes mellitus with diabetic neuropathy, unspecified; F41.9 Anxiety disorder, unspecified; B19.20 Unspecified viral hepatitis C without hepatic coma; F17.210 Nicotine dependence, cigarettes, uncomplicated; Z79.4 Long term (current) use of insulin; Z87.59 Personal history of other complications of pregnancy, childbirth and the puerperium; X58.XXXA Exposure to other specified factors, initial encounter
CPT/HCPCS: 36415; 73630; 80053; 81000; 85025; 85652; 99283

== ENCOUNTER 2017-04-23 21:32 | Emergency (ER) | payer MEDICAID ==
[~2017-04-23] VITALS: Ht 170.2 cm; Wt 71.2 kg
[~2017-04-23 21:32] MED LIST changes: +[UNRECOGNIZED DRUG - SUPPLY]
--- OUTSIDE RECORDS SUMMARY | 2017-04-23 21:38 | XMS REPORT ---
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 Active Problem History of alcohol dependence F10.21 Active 044651330 Problem Primary insomnia F51.01 Active 6493177 Problem Cannabis dependence F12.20 Active 63459445 Problem History of alcohol abuse 305.03 Active 800559199 Problem Microalbuminuria R80.9 Active 303396190 Problem Type 1 diabetes mellitus with foot ulcer E10.621 Active 611737430 Problem Type 1 diabetes mellitus with diabetic neuropathy E10.40 Active 347101720 Problem Generalized anxiety disorder F41.1 Active 91840574 Problem Substance abuse F19.10 Active 52230767 Problem Hep C w/o coma, chronic B18.2 Active 712145644 Problem Diabetes mellitus E11.9 Active 19295659 Problem 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 Active 397966921 Problem Endocrine disorder, unspecified E34.9 Active 247453590 ALLERGIES Unknown Allergies SOCIAL HISTORY No smoking Hx information available PLAN OF CARE VITAL SIGNS MEDICATIONS Medication Instructions Dosage Frequency Start Date End Date Duration Status Cyclobenzaprine HCl 5 mg Orally Three times a day 1 tablet 8h Active RESULTS No Results PROCEDURES No Known procedures IMMUNIZATIONS No Known Immunizations
[2017-04-23 21:57] LABS: BILIRUBIN,URINE NEGATIVE (NEGATIVE); KETONES,URINE NEGATIVE (NEGATIVE); LEUKOCYTE ESTERASE ,URINE NEGATIVE (NEGATIVE); NITRITE,URINE NEGATIVE (NEGATIVE); PH,URINE 6.5 (5-9); PROTEIN,URINE 2+ (NEGATIVE); UROBILINOGEN,URINE NORMAL (NORMAL)
[2017-04-23 22:04] LABS: WBC,URINE RARE /HPF
[2017-04-23 22:18] LABS: BASOPHILS # (AUTO) 0.1 10^3/uL (0.0-0.1); BASOPHILS % (AUTO) 2 % (0-10); EOSINOPHILS # (AUTO) 0.5 10^3/uL (0.0-0.3); EOSINOPHILS % (AUTO) 7 % (0-10); LYMPHOCYTES # (AUTO) 2.9 X 10^3 (1.0-4.0); LYMPHOCYTES % (AUTO) 35 % (12-44); MEAN CORPUSCULAR HEMOGLOBIN 23 PG (25-34); MEAN CORPUSCULAR HGB CONC 31 G/DL (32-36); MEAN CORPUSCULAR VOLUME 73 FL (80-99); MEAN PLATELET VOLUME 11.6 FL (7.4-10.4); MONOCYTES # (AUTO) 1.1 X 10^3 (0.0-1.0); MONOCYTES % (AUTO) 14 % (0-12); NEUTROPHILS # (AUTO) 3.6 X 10^3 (1.8-7.8); NEUTROPHILS % (AUTO) 43 % (42-75); PLATELET COUNT 246 10^3/uL (130-400); RED BLOOD COUNT 4.43 10^6/uL (4.35-5.85); RED CELL DISTRIBUTION WIDTH 19.2 % (10.0-14.5); WHITE BLOOD COUNT 8.2 10^3/uL (4.3-11.0)
[2017-04-23] MEDS ORDERED: NS IV 1000 ML 1,000 ML IV ONE (22:26)
[2017-04-23] MEDS ORDERED: fentaNYL INJECTION 100 MCG/2 ML AMP IVP STA (22:26)
[2017-04-23] MEDS ORDERED: SULF-222 (22:31)
[2017-04-23] MEDS ORDERED: IBUP-1780 (22:31)
[2017-04-23 22:37] LABS: ALBUMIN 4.1 GM/DL (3.2-4.5); BILIRUBIN,TOTAL 0.2 MG/DL (0.1-1.0); CREATININE SERUM 1.69 MG/DL (0.60-1.30); POTASSIUM 5.7 MMOL/L (3.6-5.0); TOTAL PROTEIN 7.5 GM/DL (6.4-8.2); hs C REACTIVE PROTEIN 0.05 MG/DL (0.00-0.50)
--- NOTE | 2017-04-23 22:37 | ED Abdominal Pain ---
General Chief Complaint: Abdominal/GI Problems Stated Complaint: R SIDE PAIN Nursing Triage Note: Pt ambulatory to ED with c/o 1 1/2 week right sided flank pain. Pt carrying a perea slush from [employer] and laid down on chairs in waiting room. Brought to ED 7 and is in constant movement and rocking. Pt states she went to [facility] for evaluation and had labs. Pt does not disclose any results. Sepsis Screen: No Definite Risk Source of Information: Patient Exam Limitations: No Limitations History of Present Illness Time Seen By Provider: 21:52 Initial Comments Here with 10 days of right flank and low back pain. States it has gotten worse day-to-day. She was seen at [facility] for evaluation and had labs drawn. She states they have not done anything related to that yet but she does not have results yet either. Denies dysuria or diarrhea. Does have history of celiac disease and has abnormal bowel habits typically ranging from diarrhea constipation and she states that hasn't changed. Denies fever or chills. States she is not sexually active and denies vaginal discharge. Denies any recent injuries that could have caused pain to her back. States her ibuprofen 800 mg that she takes 3 times a day is not helping her pain. Timing/Duration: 1 Week, Getting Worse Severity/Quality: Moderate, Aching Location: Flank (right) Radiation: Back Activities at Onset: None Associated Symptoms: Back Pain, No Chest Pain, No Fever/Chills, No Nausea/ Vomiting, No Shortness of Air, No Weakness Allergies and Home Medications Allergies Coded Allergies: No Known Drug Allergies (Unverified , 10/22/16) Home Medications Buspirone HCl 15 Mg Tablet, 30 MG PO TID, (Reported) TAKES 2 (15MG) TABLETS Gabapentin 800 Mg Tablet, 800 MG PO QID, (Reported) Hydroxyzine Pamoate 50 Mg Capsule, 50 MG PO TID PRN for ANXIETY, (Reported) Ibuprofen 800 Mg Tablet, (Reported) Insulin Degludec 100 Unit/1 Ml Insuln.pen, 30 UNITS SQ HS, (Reported) Insulin Lispro 100 Unit/1 Ml Insuln.pen, 10 UNITS SQ SLIDING/SCALE, (Reported) Sulfamethoxazole/Trimethoprim 1 Each Tablet, (Reported) Review of Systems Constitutional: see HPI, No chills, No fever EENTM: No Symptoms Reported Respiratory: No Symptoms Reported Cardiovascular: No Symptoms Reported Gastrointestinal: See HPI, Denies Nausea, Denies Vomiting Genitourinary: No Symptoms Reported Musculoskeletal: see HPI, back pain Skin: no symptoms reported Psychiatric/Neurological: No Symptoms Reported All Other Systems Reviewed Negative Unless Noted: Yes Past Kqqkdwz-Ihabtz-Nfczgp Hx Patient Social History Alcohol Use: Denies Use Recreational Drug Use: No (PAST HX) Drug of Choice: PAST HX Type Used: Cigarettes 2nd Hand Smoke Exposure: No Recent Foreign Travel: No Contact w/Someone Who Travel: No Recent Infectious Disease Expo: No Recent Hopitalizations: No Immunizations Up To Date Tetanus Booster (TDap): Unknown PED Vaccines UTD: No Date of Influenza Vaccine: Jul 03, 2016 Seasonal Allergies Seasonal Allergies: No Surgeries History of Surgeries: Yes (OPEN HEART SX AN ) Surgeries: Cardiac, Section, Orthopedic Respiratory History of Respiratory Disorde: No (TOBACCOISM) Cardiovascular History of Cardiac Disorders: Yes (CARDIAC SURGERY AN INFANT) Neurological History of Neurological Disord: Yes Neurological Disorders: Neuropathy, Seizure Disorder Reproductive System : No (states irregular periods, last one is a month ago) Genitourinary History of Genitourinary Disor: No Gastrointestinal History of Gastrointestinal Di: Yes (CELIAC DISEASE) Musculoskeletal History of Musculoskeletal Dis: Yes (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) Endocrine History of Endocrine Disorders: Yes (PT HAS INSULIN PUMP) Endocrine Disorders: Diabetes, Insulin dep HEENT History of HEENT Disorders: No Loss of Vision: Denies Hearing Impairment: Denies Cancer History of Cancer: No Psychosocial History of Psychiatric Problem: Yes Behavioral Health Disorders: Anxiety Integumentary History of Skin or Integumenta: No Blood Transfusions History of Blood Disorders: Yes (HEP C+) Reviewed Nursing Assessment Reviewed/Agree w Nursing PMH: Yes Family Medical History Significant Family History: No Pertinent Family Hx Family Medial History: Physical Exam Vital Signs VS - Last 72 Hours, by Label 04/23/17 04/23/17 21:35 22:38 Temp 97.7 97.7 Pulse 95 Resp 20 B/P (MAP) 150/100 Pulse Ox 97 O2 Delivery Room Air Capillary Refill : Less Than 3 Seconds General Appearance: WD/WN, no apparent distress HEENT: PERRL/EOMI, pharynx normal Neck: full range of motion, supple Respiratory: lungs clear, normal breath sounds Cardiovascular: regular rate, rhythm, no murmur Gastrointestinal: non tender, soft Extremities: non-tender, normal inspection Back: CVA tenderness (R), No muscle spasm, No vertebral tenderness, other ( right low back pain and flank pain) Neurologic/Psychiatric: alert, normal mood/affect, oriented x 3 Skin: normal color, warm/dry Progress/Results/Core Measures Results/Orders Lab Results Laboratory Tests Test 04/23/17 21:39 04/23/17 22:11 Range/Units Urine Color YELLOW Urine Clarity SLIGHTLY CLOUDY Urine pH 6.5 5-9 Urine Specific [place] 1.005 L 1.016-1.022 Urine Protein 2+ H NEGATIVE Urine Glucose (UA) 2+ H NEGATIVE Urine Ketones NEGATIVE NEGATIVE Urine Nitrite NEGATIVE NEGATIVE Urine Bilirubin NEGATIVE NEGATIVE Urine Urobilinogen NORMAL NORMAL MG/DL Urine Leukocyte Esterase NEGATIVE NEGATIVE Urine RBC (Auto) 2+ H NEGATIVE Urine RBC 0-2 /HPF Urine WBC RARE /HPF Urine Squamous Epithelial Cells 10-25 H /HPF Urine Crystals NONE /LPF Urine Bacteria TRACE /HPF Urine Casts NONE /LPF Urine Mucus NEGATIVE /LPF Urine Culture Indicated NO Urine Opiates Screen NEGATIVE NEGATIVE Urine Oxycodone Screen NEGATIVE NEGATIVE Urine Methadone Screen NEGATIVE NEGATIVE Urine Propoxyphene Screen NEGATIVE NEGATIVE Urine Barbiturates Screen NEGATIVE NEGATIVE Ur Tricyclic Antidepressants Screen NEGATIVE NEGATIVE Urine Phencyclidine Screen NEGATIVE NEGATIVE Urine Amphetamines Screen NEGATIVE NEGATIVE Urine Methamphetamines Screen NEGATIVE NEGATIVE Urine Benzodiazepines Screen NEGATIVE NEGATIVE Urine Cocaine Screen NEGATIVE NEGATIVE Urine Cannabinoids Screen NEGATIVE NEGATIVE White Blood Count 8.2 4.3-11.0 10^3/uL Red Blood Count 4.43 4.35-5.85 10^6/uL Hemoglobin 10.1 L 11.5-16.0 G/DL Hematocrit 32 L 35-52 % Mean Corpuscular Volume 73 L 80-99 FL Mean Corpuscular Hemoglobin 23 L 25-34 PG Mean Corpuscular Hemoglobin Concent 31 L 32-36 G/DL Red Cell Distribution Width 19.2 H 10.0-14.5 % Platelet Count 246 130-400 10^3/uL Mean Platelet Volume 11.6 H 7.4-10.4 FL Neutrophils (%) (Auto) 43 42-75 % Lymphocytes (%) (Auto) 35 12-44 % Monocytes (%) (Auto) 14 H 0-12 % Eosinophils (%) (Auto) 7 0-10 % Basophils (%) (Auto) 2 0-10 % Neutrophils # (Auto) 3.6 1.8-7.8 X 10^3 Lymphocytes # (Auto) 2.9 1.0-4.0 X 10^3 Monocytes # (Auto) 1.1 H 0.0-1.0 X 10^3 Eosinophils # (Auto) 0.5 H 0.0-0.3 10^3/uL Basophils # (Auto) 0.1 0.0-0.1 10^3/uL Sodium Level 130 L 135-145 MMOL/L Potassium Level 5.7 H 3.6-5.0 MMOL/L Chloride Level 105 98-107 MMOL/L Carbon Dioxide Level 13 L 21-32 MMOL/L Anion Gap 12 5-14 MMOL/L Blood Urea Nitrogen 26 H 7-18 MG/DL Creatinine 1.69 H 0.60-1.30 MG/DL Estimat Glomerular Filtration Rate 35 BUN/Creatinine Ratio 15 Glucose Level 305 H 70-105 MG/DL Calcium Level 9.0 8.5-10.1 MG/DL Total Bilirubin 0.2 0.1-1.0 MG/DL Aspartate Amino Transf (AST/SGOT) 32 5-34 U/L Alanine Aminotransferase (ALT/SGPT) 30 0-55 U/L Alkaline Phosphatase 118 40-136 U/L C-Reactive Protein High Sensitivity 0.05 0.00-0.50 MG/DL Total Protein 7.5 6.4-8.2 GM/DL Albumin 4.1 3.2-4.5 GM/DL My Orders Orders - JEIMY GUADALUPE MD Cbc With Automated Diff (04/23/17 21:48) Comprehensive Metabolic Panel (04/23/17 21:48) Hs C Reactive Protein (04/23/17 21:48) Drug Screen Stat (Urine) (04/23/17 21:48) Ua Culture If Indicated (04/23/17 21:48) Saline Lock/Iv-Start (04/23/17 21:48) Urine Bedside (04/23/17 21:48) Ct Abdomen/Pelvis Wo (04/23/17 22:26) Fentanyl Injection (Sublimaze Injection (04/23/17 22:26) Ns Iv 1000 Ml (Sodium Chloride 0.9%) (04/23/17 22:26) Us Non Ob Transvaginal [id number] (04/24/17 00:01) Medications Given in ED Current Medications Medications Dose Ordered Sig/Dipti Route Start Time Stop Time Status Last Admin Dose Admin Sodium Chloride 1,000 ml @ 0 mls/hr Q0M ONCE IV 04/23/17 22:26 04/23/17 22:28 DC 04/23/17 22:38 999 MLS/HR Vital Signs/I&O Vital Sign - Last 12Hours 04/23/17 04/23/17 21:35 22:38 Temp 97.7 97.7 Pulse 95 Resp 20 B/P (MAP) 150/100 Pulse Ox 97 O2 Delivery Room Air Blood Pressure Mean: 117 Point of Care Testing Urine -Bedside: Negative Progress Note : Progress Note Seen and evaluated. IV, labs and UA ordered. Normal saline 1 L bolus. Fentanyl [address] abdomen and pelvis without contrast due to poor IV access. Monitor patient. CT results concerning for ovarian cystic structure that needs further evaluation with ultrasound. This was ordered. 0040: Ultrasound complete and preliminary shows 2 cystic structures 1 with findings consistent with hemorrhagic cyst. Hydrocodone 7.5/325 one tab by mouth given. Discharged home with return precautions. Patient verbalize understanding of instructions and agreement with plan. I did auto travel counselor her regarding her serum creatinine and blood sugar. She will work towards tighter blood sugar control and will decrease or stop ibuprofen use and follow-up with her doctor. Diagnostic Imaging Diagonstic Imaging: CT Plain Films/CT/US/NM/MRI: abdomen, pelvis Comments No renal calculi and no hydronephrosis. There is a 4.2 x 7.3 x 3.8 cm bilobed cystic structure in the right adnexa with suspected mural nodularity versus layering blood. Pelvic ultrasound is recommended for further evaluation. Constipation is suggested. Other incidental findings per report. Reviewed: Reviewed [place] Study, Reviewed by Me Diagonstic Imaging: Ultrasound Plain Films/CT/US/NM/MRI: pelvis Comments 2 right-sided ovarian cystic structures. Positive blood flow to the right ovary and left ovary appeared normal. Otherwise no other significant findings on preliminary read. Departure Impression Impression: Primary Impression: Right ovarian cyst Additional Impressions: Constipation Qualified Codes: K59.00 - Constipation, unspecified Renal insufficiency Disposition: HOME, SELF-CARE Condition: Stable Departure-Patient Inst. Decision time for Depature: 00:45 Referrals: [facility] (PCP) Primary Care Physician DAVE GRAFF (Family) Primary Care Physician Patient Instructions: Acute Kidney Failure (DC), Constipation, Adult (DC), Ovarian Cyst (DC) Add. Discharge Instructions: All discharge instructions reviewed with patient and/or family. Voiced understanding. Drink plenty of fluids and carefully monitoring control your blood sugar. Decrease or stop ibuprofen use. Follow-up with your doctor in 2-3 days for recheck and further evaluation. You need to have your serum creatinine (kidney function) recheck this week or early next week to ensure resolution. You have ovarian cyst that will need further evaluation as well. You can talk with your doctor about referral to irrigation manager for evaluation as needed. Return for worse pain, fever, vomiting, weakness, breathing problems or other concerns as needed. Scripts Hydrocodone/Acetaminophen (Hydrocodon-Acetaminoph 7.5-325) 1 Each Tablet 1 EACH PO Q6H, #10 TAB 0 Refills Prov: JEIMY GUADALUPE MD 04/24/17 Copy Copies To 1: KASANDRA SANCHEZ TIMOTHY D MD Apr 23, 2017 22:37
[2017-04-24] MEDS ORDERED: HYDROcodone/APAP 7.5 MG/325 MG (LORTAB, LORCET PLUS) TABLET PO STA (00:41)
[2017-04-24] MEDS ORDERED: HYDR-3816 PO (00:47)
[2017-04-24 00:54] VITALS: BP 142/96
--- NOTE | 2017-04-24 08:26 | Diagnostic Imaging Report ---
PROCEDURE: CT abdomen and pelvis without contrast. TECHNIQUE: Multiple contiguous axial images were obtained through the abdomen and pelvis without the use of intravenous contrast. INDICATION: One and a half week history of right flank pain. I have no priors. FINDINGS: There is a large bilobed cystic structure in the right adnexa measuring 7.3 x 4.1 cm. Its evaluation limited by the absence of vascular contrast. Pelvic ultrasound recommended as further evaluation. It is difficult to separate from adjacent fluid containing unopacified small bowel. There is no hydronephrosis and no opaque kidney stone. No perinephric edema. Liver, gallbladder, spleen, adrenals and pancreas unremarkable. The aorta is nonaneurysmal. The appendix is believed absent. Uterus unremarkable. The urinary bladder is unremarkable. There is mildly elevated colonic fecal load diffusely consistent with at least mild degree of constipation. No focal impaction or resultant obstruction, however. No pneumatosis or free air. No focal inflammatory changes. There are few shotty periaortic and retroperitoneal mesenteric nodes predominantly less than 1 cm of uncertain significance. There is some shotty mild adenopathy in the bilateral inguinal canals. Detection of lymph nodes limited by the absence of oral as well as vascular contrast. IMPRESSION: 1. Bilobed likely complex cystic right adnexal lesion. Further characterization with ultrasound recommended. 2. Probable constipation without obstruction or impaction. 3. Mild scattered lymph nodes are suboptimally visualized of uncertain significance. Study otherwise normal. In particular, no evidence for nephrolithiasis. Dictated by: Dictated on workstation # [id number]
--- NOTE | 2017-04-24 08:29 | Diagnostic Imaging Report ---
INDICATION: Pelvic pain. Pelvic sonography performed in routine fashion with transabdominal and transvaginal views. FINDINGS: The uterus measured 10.4 x 5.4 x 4.6 cm. There is no uterine mass. Endometrium measured 9 mm in thickness. Left ovary is normal and measured 4.0 x 2.2 x 2.5 cm. The right ovary measured 8.0 x 4.3 x 5.1 cm. There is a probable hemorrhagic cyst in the right ovary superiorly measuring 4.3 x 4.1 x 3.9 cm. There is a simple cyst in the right ovary inferiorly measuring 3.8 x 3.2 x 2.7 cm. Color flow is visualized in both ovaries. IMPRESSION: Right ovary is enlarged and contains a complex or hemorrhagic cyst superiorly and simple cyst inferiorly as described above. Left ovary appears normal. The uterus and endometrium appear unremarkable for age. There is no significant free fluid. Dictated by: Dictated on workstation # [id number]
== END 2017-04-24 00:54 | disposition home or self-care (01) ==
LOC: EDUNIT# 21:32 → ER 21:33
DX: N83.201 Unspecified ovarian cyst, right side (principal); K59.00 Constipation, unspecified; N28.9 Disorder of kidney and ureter, unspecified; E11.40 Type 2 diabetes mellitus with diabetic neuropathy, unspecified; G40.909 Epilepsy, unspecified, not intractable, without status epilepticus; Z87.891 Personal history of nicotine dependence; Z79.4 Long term (current) use of insulin
CPT/HCPCS: 36415; 74176; 76830; 80053; 80306; 81000; 84703; 85025; 86141; 96361; 96374

== ENCOUNTER → 2017-05-16 | Outpatient (CLI) | payer MEDICAID ==
[~2017-05-16] MED LIST changes: +HYDR-3816 PO; +IBUP-1780; -NAPR500T3 PO; +NAPR500T4 PO; +SULF-222; +TRAZ100T92
--- NOTE | 2017-05-16 20:37 | Diagnostic Imaging Report ---
EXAMINATION: Three views of the right foot. INDICATION: Chronic osteomyelitis with draining sinus. There is an ulcer marked near the base of the great toe medial aspect. COMPARISON: 04/13/17. FINDINGS: There is prior amputation through the distal aspect of the proximal phalanx of the second toe. Also chronic changes of collapse and abnormal lucency along the heads of the third and fourth metatarsals seen similar to the prior exam. These have well corticated margins compatible with nonunion. Deformity of the distal aspect of the proximal phalanx of the great toe with sclerotic changes and mild collapse is the seen, similar to the previous study. No acute bone erosion or periosteal reaction is identified. IMPRESSION: Chronic changes described at the distal aspect of the proximal phalanx of the great toe and the heads of the third and fourth metatarsal bones without change from the prior study. Dictated by: Dictated on workstation # [id number]
== END ==
LOC: RAD 13:59
PROVIDERS: ATTEND Surgery
DX: M86.471 Chronic osteomyelitis with draining sinus, right ankle and foot (principal); E10.621 Type 1 diabetes mellitus with foot ulcer; E10.42 Type 1 diabetes mellitus with diabetic polyneuropathy; L97.511 Non-pressure chronic ulcer of other part of right foot limited to breakdown of skin; B18.2 Chronic viral hepatitis C
CPT/HCPCS: 73630

== ENCOUNTER → 2017-05-16 | Outpatient (CLI) | payer MEDICAID | LOC: WOUNDCARE 12:12 | PROVIDERS: ATTEND Surgery | DX: E10.621 Type 1 diabetes mellitus with foot ulcer (principal); E10.42 Type 1 diabetes mellitus with diabetic polyneuropathy; L97.511 Non-pressure chronic ulcer of other part of right foot limited to breakdown of skin; M84.374A Stress fracture, right foot, initial encounter for fracture; M86.471 Chronic osteomyelitis with draining sinus, right ankle and foot; B18.2 Chronic viral hepatitis C | CPT/HCPCS: 97597 ==

== ENCOUNTER → 2017-05-30 | Outpatient (CLI) | payer MEDICAID ==
[~2017-05-30] MED LIST changes: +NAPR500T3 PO; -NAPR500T4 PO; -TRAZ100T92
== END ==
LOC: WOUNDCARE 08:49
PROVIDERS: ATTEND Surgery
DX: E10.621 Type 1 diabetes mellitus with foot ulcer (principal); E10.42 Type 1 diabetes mellitus with diabetic polyneuropathy; L97.511 Non-pressure chronic ulcer of other part of right foot limited to breakdown of skin; M84.374A Stress fracture, right foot, initial encounter for fracture; M86.471 Chronic osteomyelitis with draining sinus, right ankle and foot; B18.2 Chronic viral hepatitis C
CPT/HCPCS: 99213

== ENCOUNTER 2017-06-05 11:25 | Emergency (ER) | payer MEDICAID ==
[~2017-06-05] VITALS: Ht 160 cm; Wt 63.5 kg
--- NOTE | 2017-06-05 11:39 | ED General ---
General Stated Complaint: LOW BLOOD SUGAR Source of Information: Patient, EMS Exam Limitations: No Limitations History of Present Illness Time Seen by Provider: 11:37 Initial Comments To ER per EMS from home with reports of low blood sugar. Patient was found on the floor by her friend and found to be unresponsive. EMS was summoned and checked her blood sugar and found it to be 20. She was given oral glucose which only raised it minimally. She was then given D50 IV which raised her sugar to a current 198. She is crying and tearful and very anxious. She denies drug use. Timing/Duration: 1-2 Days Severity: Moderate Allergies and Home Medications Allergies Coded Allergies: No Known Drug Allergies (Unverified , 10/22/16) Home Medications Buspirone HCl 15 Mg Tablet, 30 MG PO TID, (Reported) TAKES 2 (15MG) TABLETS Gabapentin 800 Mg Tablet, 800 MG PO QID, (Reported) Ibuprofen 800 Mg Tablet, (Reported) Insulin Degludec 100 Unit/1 Ml Insuln.pen, 30 UNITS SQ HS, (Reported) Insulin Lispro 100 Unit/1 Ml Insuln.pen, 10 UNITS SQ SLIDING/SCALE, (Reported) Trazodone HCl 100 Mg Tablet, (Reported) Constitutional: see HPI EENTM: see HPI Respiratory: no symptoms reported Cardiovascular: no symptoms reported Genitourinary: no symptoms reported Musculoskeletal: no symptoms reported Skin: no symptoms reported Psychiatric/Neurological: No Symptoms Reported Hematologic/Lymphatic: No Symptoms Reported Immunological/Allergic: no symptoms reported Past Asxhmoc-Thnrwn-Zfxwtf Hx Patient Social History Drug of Choice: PAST HX Type Used: Cigarettes 2nd Hand Smoke Exposure: No Recent Hopitalizations: No Immunizations Up To Date Tetanus Booster (TDap): Unknown PED Vaccines UTD: No Date of Influenza Vaccine: Jul 03, 2016 Seasonal Allergies Seasonal Allergies: No Surgeries History of Surgeries: Yes (OPEN HEART SX AN ) Surgeries: Cardiac, Section, Orthopedic Respiratory History of Respiratory Disorde: No (TOBACCOISM) Cardiovascular History of Cardiac Disorders: Yes (CARDIAC SURGERY AN INFANT) Neurological History of Neurological Disord: Yes Neurological Disorders: Neuropathy, Seizure Disorder Genitourinary History of Genitourinary Disor: No Gastrointestinal History of Gastrointestinal Di: Yes (CELIAC DISEASE) Musculoskeletal History of Musculoskeletal Dis: Yes (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) Endocrine History of Endocrine Disorders: Yes (PT HAS INSULIN PUMP) Endocrine Disorders: Diabetes, Insulin dep HEENT History of HEENT Disorders: No Loss of Vision: Denies Hearing Impairment: Denies Cancer History of Cancer: No Psychosocial History of Psychiatric Problem: Yes Behavioral Health Disorders: Anxiety Integumentary History of Skin or Integumenta: No Blood Transfusions History of Blood Disorders: Yes (HEP C+) Family Medical History Significant Family History: No Pertinent Family Hx Family Medial History: Physical Exam Vital Signs Vital Sign - Last 12Hours 06/05/17 11:25 Temp 98.0 Pulse 111 Resp 18 B/P (MAP) 106/73 Pulse Ox 97 O2 Delivery Room Air Capillary Refill : General Appearance: No Apparent Distress, WD/WN, Anxious, Other (history of a right second toe partial amputation due to diabetes complications. Poor veins, multiple healed sores on her arms.) Eyes: Bilateral Eye Normal Inspection, Bilateral Eye PERRL, Bilateral Eye EOMI HEENT: PERRL/EOMI, TMs Normal Neck: Full Range of Motion Respiratory: Normal Breath Sounds, No Accessory Muscle Use, No Respiratory Distress Cardiovascular: Regular Rate, Rhythm, Normal Peripheral Pulses Gastrointestinal: Non Tender, Soft Extremity: Normal Capillary Refill Neurologic/Psychiatric: Alert, Oriented x3, No Motor/Sensory Deficits Skin: Normal Color, Warm/Dry Progress/Results/Core Measures Results/Orders Lab Results Laboratory Tests Test 06/05/17 11:36 Range/Units White Blood Count 6.2 4.3-11.0 10^3/uL Red Blood Count 4.37 4.35-5.85 10^6/uL Hemoglobin 10.5 L 11.5-16.0 G/DL Hematocrit 33 L 35-52 % Mean Corpuscular Volume 76 L 80-99 FL Mean Corpuscular Hemoglobin 24 L 25-34 PG Mean Corpuscular Hemoglobin Concent 32 32-36 G/DL Red Cell Distribution Width 18.0 H 10.0-14.5 % Platelet Count 283 130-400 10^3/uL Mean Platelet Volume 11.3 H 7.4-10.4 FL Neutrophils (%) (Auto) 59 42-75 % Lymphocytes (%) (Auto) 22 12-44 % Monocytes (%) (Auto) 13 H 0-12 % Eosinophils (%) (Auto) 4 0-10 % Basophils (%) (Auto) 2 0-10 % Neutrophils # (Auto) 3.7 1.8-7.8 X 10^3 Lymphocytes # (Auto) 1.4 1.0-4.0 X 10^3 Monocytes # (Auto) 0.8 0.0-1.0 X 10^3 Eosinophils # (Auto) 0.2 0.0-0.3 10^3/uL Basophils # (Auto) 0.1 0.0-0.1 10^3/uL Sodium Level 139 135-145 MMOL/L Potassium Level 4.4 3.6-5.0 MMOL/L Chloride Level 112 H 98-107 MMOL/L Carbon Dioxide Level 18 L 21-32 MMOL/L Anion Gap 9 5-14 MMOL/L Blood Urea Nitrogen 16 7-18 MG/DL Creatinine 1.12 0.60-1.30 MG/DL Estimat Glomerular Filtration Rate 56 BUN/Creatinine Ratio 14 Glucose Level 246 H 70-105 MG/DL Calcium Level 8.8 8.5-10.1 MG/DL Total Bilirubin 0.2 0.1-1.0 MG/DL Aspartate Amino Transf (AST/SGOT) 25 5-34 U/L Alanine Aminotransferase (ALT/SGPT) 28 0-55 U/L Alkaline Phosphatase 102 40-136 U/L Total Protein 6.9 6.4-8.2 GM/DL Albumin 3.7 3.2-4.5 GM/DL My Orders Orders - LATOYA CHRISTIANSEN APRN Cbc With Automated Diff (06/05/17 11:31) Comprehensive Metabolic Panel (06/05/17 11:31) Ua Culture If Indicated (06/05/17 11:31) Drug Screen Stat (Urine) (06/05/17 11:31) Urine Bedside (06/05/17 11:31) Saline Lock/Iv-Start (06/05/17 11:31) Lorazepam Injection (Ativan Injection) (06/05/17 11:45) General/Regular (06/05/17 Lunch) Medications Given in ED Current Medications Medications Dose Ordered Sig/Dipti Route Start Time Stop Time Status Last Admin Dose Admin Lorazepam 1 mg ONCE ONCE IVP 06/05/17 11:45 06/05/17 11:46 DC 06/05/17 11:41 1 MG Vital Signs/I&O Vital Sign - Last 12Hours 06/05/17 11:25 Temp 98.0 Pulse 111 Resp 18 B/P (MAP) 106/73 Pulse Ox 97 O2 Delivery Room Air Departure Communication (Admissions) Progress Notes 1229- patient states she is feeling much better. She was able to eat a plate of food. We will recheck blood sugar and discharged home. Impression Impression: Primary Impression: Hypoglycemic reaction to insulin Additional Impression: Anxiety Disposition: 01 HOME, SELF-CARE Condition: Stable Departure-Patient Inst. Referrals: KASANDRA SANCHEZ DO (PCP) Primary Care Physician DAVE GRAFF (Family) Primary Care Physician LATOYA CHRISTIANSEN APRN Jun 05, 2017 11:39
[2017-06-05] MEDS ORDERED: LORazepam INJ 2 MG/ML (ATIVAN) VIAL IVP ONE (11:45)
[2017-06-05] MEDS ORDERED: TRAZ100T92 (11:50)
[2017-06-05 11:52] LABS: BASOPHILS # (AUTO) 0.1 10^3/uL (0.0-0.1); BASOPHILS % (AUTO) 2 % (0-10); EOSINOPHILS # (AUTO) 0.2 10^3/uL (0.0-0.3); EOSINOPHILS % (AUTO) 4 % (0-10); LYMPHOCYTES # (AUTO) 1.4 X 10^3 (1.0-4.0); LYMPHOCYTES % (AUTO) 22 % (12-44); MEAN CORPUSCULAR HEMOGLOBIN 24 PG (25-34); MEAN CORPUSCULAR HGB CONC 32 G/DL (32-36); MEAN CORPUSCULAR VOLUME 76 FL (80-99); MEAN PLATELET VOLUME 11.3 FL (7.4-10.4); MONOCYTES # (AUTO) 0.8 X 10^3 (0.0-1.0); MONOCYTES % (AUTO) 13 % (0-12); NEUTROPHILS # (AUTO) 3.7 X 10^3 (1.8-7.8); NEUTROPHILS % (AUTO) 59 % (42-75); PLATELET COUNT 283 10^3/uL (130-400); RED BLOOD COUNT 4.37 10^6/uL (4.35-5.85); WHITE BLOOD COUNT 6.2 10^3/uL (4.3-11.0)
[2017-06-05 12:16] LABS: ALBUMIN 3.7 GM/DL (3.2-4.5); BILIRUBIN,TOTAL 0.2 MG/DL (0.1-1.0); CALCIUM 8.8 MG/DL (8.5-10.1); CREATININE SERUM 1.12 MG/DL (0.60-1.30); POTASSIUM 4.4 MMOL/L (3.6-5.0); TOTAL PROTEIN 6.9 GM/DL (6.4-8.2)
[2017-06-05 12:50] VITALS: BP 149/83
== END 2017-06-05 12:48 | disposition home or self-care (01) ==
LOC: EDUNIT# 11:25 → ER 11:26
DX: Z96.41 Presence of insulin pump (external) (internal); T38.3X5A Adverse effect of insulin and oral hypoglycemic [antidiabetic] drugs, initial encounter; E16.0 Drug-induced hypoglycemia without coma; B19.20 Unspecified viral hepatitis C without hepatic coma; F17.210 Nicotine dependence, cigarettes, uncomplicated; E11.40 Type 2 diabetes mellitus with diabetic neuropathy, unspecified; Z87.59 Personal history of other complications of pregnancy, childbirth and the puerperium; Z79.4 Long term (current) use of insulin; F41.9 Anxiety disorder, unspecified
CPT/HCPCS: 36415; 80053; 82962; 85025; 96374

== ENCOUNTER → 2017-06-27 | Outpatient (CLI) | payer MEDICAID ==
[~2017-06-27] MED LIST changes: +TRAZ100T92
== END ==
LOC: WOUNDCARE 12:56
PROVIDERS: ATTEND Surgery
DX: E10.621 Type 1 diabetes mellitus with foot ulcer (principal); E10.42 Type 1 diabetes mellitus with diabetic polyneuropathy; L97.522 Non-pressure chronic ulcer of other part of left foot with fat layer exposed; M84.374A Stress fracture, right foot, initial encounter for fracture; B18.2 Chronic viral hepatitis C; N18.3 Chronic kidney disease, stage 3 (moderate)
CPT/HCPCS: 11042

== ENCOUNTER → 2017-06-27 | Outpatient (CLI) | payer MEDICAID ==
--- NOTE | 2017-06-27 15:51 | Diagnostic Imaging Report ---
Three views of the left foot. INDICATION: Left foot ulcer. FINDINGS: There is soft tissue swelling around the metatarsophalangeal joint of the fifth toe. Lucency in the soft tissues related to the ulcer is seen with no periosteal reaction or erosions in the bone to suggest osteomyelitis. No fracture or dislocation. 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 Alternatively, this could be an old fracture of the medial sesamoid bone. No subluxation or dislocation. No radiopaque foreign body. IMPRESSION: Ulcer and soft tissue swelling near the head of the fifth metatarsal with no radiographic evidence of osteomyelitis. Dictated by: Dictated on workstation # [id number]
== END ==
LOC: RAD 15:07
PROVIDERS: ATTEND Surgery
DX: L97.522 Non-pressure chronic ulcer of other part of left foot with fat layer exposed (principal); E10.621 Type 1 diabetes mellitus with foot ulcer; E10.42 Type 1 diabetes mellitus with diabetic polyneuropathy; B18.2 Chronic viral hepatitis C; N18.3 Chronic kidney disease, stage 3 (moderate)
CPT/HCPCS: 73630

== ENCOUNTER → 2017-07-18 | Outpatient (CLI) | payer MEDICAID | LOC: WOUNDCARE 08:17 | PROVIDERS: ATTEND Surgery | DX: L97.512 Non-pressure chronic ulcer of other part of right foot with fat layer exposed (principal); E10.621 Type 1 diabetes mellitus with foot ulcer; E10.42 Type 1 diabetes mellitus with diabetic polyneuropathy; M86.471 Chronic osteomyelitis with draining sinus, right ankle and foot; M84.374A Stress fracture, right foot, initial encounter for fracture; B18.2 Chronic viral hepatitis C; E10.22 Type 1 diabetes mellitus with diabetic chronic kidney disease; N18.3 Chronic kidney disease, stage 3 (moderate) | CPT/HCPCS: 11042; 87070; 87075; 87077; 87205 ==

== ENCOUNTER → 2017-07-25 | Outpatient (CLI) | payer MEDICAID ==
[~2017-07-25] MED LIST changes: -NAPR500T3 PO; +NAPR500T4 PO
== END ==
LOC: WOUNDCARE 08:29
PROVIDERS: ATTEND Surgery
DX: E10.621 Type 1 diabetes mellitus with foot ulcer (principal); L97.512 Non-pressure chronic ulcer of other part of right foot with fat layer exposed; E10.42 Type 1 diabetes mellitus with diabetic polyneuropathy; M86.471 Chronic osteomyelitis with draining sinus, right ankle and foot; M84.374A Stress fracture, right foot, initial encounter for fracture; B18.2 Chronic viral hepatitis C; N18.3 Chronic kidney disease, stage 3 (moderate)
CPT/HCPCS: 99212

== ENCOUNTER → 2017-08-06 | Outpatient (CLI) | payer MEDICAID ==
--- NOTE | 2017-08-06 22:07 | Diagnostic Imaging Report ---
Ceretec white blood cells scan. After the intravenous administration of 20.6 technetium 99m Ceretec white blood cells tagged scans, images over the feet bilaterally were obtained. INDICATION: Right foot ulcer. FINDINGS: There is no significant focal area of increased uptake seen to suggest an underlying infection or inflammation in both feet. IMPRESSION: No scintigraphic evidence of infection or inflammation identified. Dictated by: Dictated on workstation # [id number]
== END ==
LOC: CARD 06:32
PROVIDERS: ATTEND Podiatrist Foot & Ankle Surgery
DX: L97.512 Non-pressure chronic ulcer of other part of right foot with fat layer exposed (principal); S92.334 Nondisplaced fracture of third metatarsal bone, right foot; S91.301S Unspecified open wound, right foot, sequela
CPT/HCPCS: 78805; 84703

== ENCOUNTER 2017-08-19 10:52 | Observation (INO) | payer MEDICAID ==
[~2017-08-19] VITALS: Ht 170.2 cm; Wt 65.8 kg
[~2017-08-19 10:52] MED LIST changes: -IBUP-1780; +IBUP-1780 PO; +NAPR-1071 PO; -NAPR500T PO; -TRAZ100T92; +TRAZ100T92 PO
--- OUTSIDE RECORDS SUMMARY | 2017-08-19 10:57 | XMS REPORT ---
Author Author RITA Patel Organization [facility] Address [address] [place] [address] Care Team Providers Care Hand Bander Name Role Phone ireneRITA HENLEY Unavailable PROBLEMS Type Condition ICD9-CM Code [id number] Code Onset Dates Condition Status SNOMED Code Problem Endocrine disorder, unspecified E34.9 Active 009836390 Problem Primary insomnia F51.01 Active 0688904 Problem Gastroesophageal reflux disease without esophagitis K21.9 Active 346403156 Problem Right upper quadrant pain R10.11 Active 173815852 Problem Toe amputation status, right Z89.421 Active 291814319 Problem Cannabis dependence F12.20 Active 15737074 Problem History of alcohol dependence F10.21 Active 898357083 Problem Methamphetamine use disorder, severe, 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 Active Problem History of alcohol abuse 305.03 Active 678366300 Problem Type 1 diabetes mellitus with foot ulcer E10.621 Active 802001139 Problem Generalized anxiety disorder F41.1 Active 55257411 Problem Type 1 diabetes mellitus with diabetic neuropathy E10.40 Active 173599100 Problem Microalbuminuria R80.9 Active 920510612 Problem Substance abuse F19.10 Active 17055401 Problem Diabetes mellitus E11.9 Active 16536575 Problem Hep C w/o coma, chronic B18.2 Active 878765675 Problem 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 Active 70794160 Problem 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 Active 636087361 Problem Anxiety F41.9 Active 59175890 ALLERGIES No Information SOCIAL HISTORY Never Assessed PLAN OF CARE VITAL SIGNS MEDICATIONS Unknown Medications RESULTS No Results PROCEDURES Procedure Date Ordered Result Body Site Alcohol and/or drug services January 30, 2017 IMMUNIZATIONS No Known Immunizations MEDICAL (GENERAL) HISTORY Type Description Date Medical History type I diabetes Medical History hepatitis C Medical History celiac Medical History anxiety Medical History diabetic neuropathy Medical History Heart murmur Medical History drug abuse Surgical History section Surgical History open heart at Surgical History Right foot toe amputated Oct 2016 Hospitalization History Surgery(s) only Hospitalization History DKA Hospitalization History MARSA in her foot December 2016 Hospitalization History [facility] 02/2017
--- OUTSIDE RECORDS SUMMARY | 2017-08-19 10:57 | XMS REPORT ---
Author Author DAVE GRAFF [facility] Address [address] [place] [address] Care Team Providers Care Elevator Pilot Name Role Phone HECTOR GRAFFNETTE Unavailable PROBLEMS Type Condition ICD9-CM Code [id number] Code Onset Dates Condition Status SNOMED Code Problem Endocrine disorder, unspecified E34.9 Active 675842943 Problem Primary insomnia F51.01 Active 1583583 Problem Gastroesophageal reflux disease without esophagitis K21.9 Active 907911557 Problem Right upper quadrant pain R10.11 Active 606622898 Problem Toe amputation status, right Z89.421 Active 788134350 Problem Cannabis dependence F12.20 Active 03919472 Problem History of alcohol dependence F10.21 Active 138686633 Problem Methamphetamine use disorder, severe, 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 Active Problem History of alcohol abuse 305.03 Active 083091121 Problem Type 1 diabetes mellitus with foot ulcer E10.621 Active 834349811 Problem Generalized anxiety disorder F41.1 Active 48072856 Problem Type 1 diabetes mellitus with diabetic neuropathy E10.40 Active 416379053 Problem Microalbuminuria R80.9 Active 184129108 Problem Substance abuse F19.10 Active 24619477 Problem Diabetes mellitus E11.9 Active 27576761 Problem Hep C w/o coma, chronic B18.2 Active 122681544 Problem 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
--- OUTSIDE RECORDS SUMMARY | 2017-08-19 10:57 | XMS REPORT ---
Author Author RITA Patel Organization [facility] Address [address] [place] [address] Care Team Providers Care Supervisor Screen Printing Name Role Phone ireneRITA HENLEY Unavailable PROBLEMS Type Condition ICD9-CM Code [id number] Code Onset Dates Condition Status SNOMED Code Problem Endocrine disorder, unspecified E34.9 Active 798266376 Problem Primary insomnia F51.01 Active 9689111 Problem Gastroesophageal reflux disease without esophagitis K21.9 Active 638450131 Problem Right upper quadrant pain R10.11 Active 717956850 Problem Toe amputation status, right Z89.421 Active 677879213 Problem Cannabis dependence F12.20 Active 88814337 Problem History of alcohol dependence F10.21 Active 861782373 Problem Methamphetamine use disorder, severe, 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 Active Problem History of alcohol abuse 305.03 Active 295862111 Problem Type 1 diabetes mellitus with foot ulcer E10.621 Active 186197799 Problem Generalized anxiety disorder F41.1 Active 08253543 Problem Type 1 diabetes mellitus with diabetic neuropathy E10.40 Active 852764790 Problem Microalbuminuria R80.9 Active 507947855 Problem Substance abuse F19.10 Active 02592284 Problem Diabetes mellitus E11.9 Active 48685801 Problem Hep C w/o coma, chronic B18.2 Active 327367741 Problem 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
--- OUTSIDE RECORDS SUMMARY | 2017-08-19 10:57 | XMS REPORT ---
Author Author SOPHIA NOVA Organization [facility] Address [address] [place] [address] Care Team Providers Care Energy Systems Laboratory Director Name Role Phone SOPHIA NOVA Unavailable PROBLEMS Type Condition ICD9-CM Code [id number] Code Onset Dates Condition Status SNOMED Code Problem Endocrine disorder, unspecified E34.9 Active 709650172 Problem Primary insomnia F51.01 Active 6176005 Problem Gastroesophageal reflux disease without esophagitis K21.9 Active 661068058 Problem Right upper quadrant pain R10.11 Active 992843191 Problem Toe amputation status, right Z89.421 Active 068111902 Problem Cannabis dependence F12.20 Active 22397290 Problem History of alcohol dependence F10.21 Active 082998016 Problem Methamphetamine use disorder, severe, 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 Active Problem History of alcohol abuse 305.03 Active 847393046 Problem Type 1 diabetes mellitus with foot ulcer E10.621 Active 898034766 Problem Generalized anxiety disorder F41.1 Active 08036161 Problem Type 1 diabetes mellitus with diabetic neuropathy E10.40 Active 828338792 Problem Microalbuminuria R80.9 Active 828733879 Problem Substance abuse F19.10 Active 11953010 Problem Diabetes mellitus E11.9 Active 49656253 Problem Hep C w/o coma, chronic B18.2 Active 329042977 Problem 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
--- OUTSIDE RECORDS SUMMARY | 2017-08-19 10:58 | XMS REPORT ---
Author Author MARGARITO ANDREWS [facility] Address [address] [place] [address] Care Team Providers Care Hollow Core Door Frame Assembler Name Role Phone MARGARITO ANDREWS Unavailable PROBLEMS Type Condition ICD9-CM Code [id number] Code Onset Dates Condition Status SNOMED Code Problem Endocrine disorder, unspecified E34.9 Active 197750596 Problem Primary insomnia F51.01 Active 6308444 Problem Gastroesophageal reflux disease without esophagitis K21.9 Active 994345431 Problem Right upper quadrant pain R10.11 Active 120986615 Problem Toe amputation status, right Z89.421 Active 669386015 Problem Cannabis dependence F12.20 Active 72204571 Problem History of alcohol dependence F10.21 Active 166761996 Problem Methamphetamine use disorder, severe, 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 Active Problem History of alcohol abuse 305.03 Active 826799188 Problem Type 1 diabetes mellitus with foot ulcer E10.621 Active 562229078 Problem Generalized anxiety disorder F41.1 Active 06822735 Problem Type 1 diabetes mellitus with diabetic neuropathy E10.40 Active 464891703 Problem Microalbuminuria R80.9 Active 275500006 Problem Substance abuse F19.10 Active 03948156 Problem Diabetes mellitus E11.9 Active 78261771 Problem Hep C w/o coma, chronic B18.2 Active 900946640 Problem 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
--- OUTSIDE RECORDS SUMMARY | 2017-08-19 10:58 | XMS REPORT ---
Author Author ANSON Burnett Organization [facility] Address [address] [place] [address] Care Team Providers Care Legal Intern Name Role Phone ANSON Burnett Unavailable PROBLEMS Type Condition ICD9-CM Code [id number] Code Onset Dates Condition Status SNOMED Code Problem Endocrine disorder, unspecified E34.9 Active 078925219 Problem Primary insomnia F51.01 Active 7508321 Problem Gastroesophageal reflux disease without esophagitis K21.9 Active 482747568 Problem Right upper quadrant pain R10.11 Active 829349393 Problem Toe amputation status, right Z89.421 Active 489383036 Problem Cannabis dependence F12.20 Active 71559890 Problem History of alcohol dependence F10.21 Active 890577296 Problem Methamphetamine use disorder, severe, 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 Active Problem History of alcohol abuse 305.03 Active 497677285 Problem Type 1 diabetes mellitus with foot ulcer E10.621 Active 566694235 Problem Generalized anxiety disorder F41.1 Active 70051282 Problem Type 1 diabetes mellitus with diabetic neuropathy E10.40 Active 252991835 Problem Microalbuminuria R80.9 Active 060045475 Problem Substance abuse F19.10 Active 66736014 Problem Diabetes mellitus E11.9 Active 26378701 Problem Hep C w/o coma, chronic B18.2 Active 666295675 Problem 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 Active 11877999 Problem 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 Active 038087869 Problem Anxiety F41.9 Active 71585046 ALLERGIES Substance Reaction Event Type Date Status NovoLog Flexpen hypoglycemia Drug Allergy Oct, Active gluten bloating Non Drug Allergy Oct, Active SOCIAL HISTORY Never Assessed PLAN OF CARE Activity Details Follow Up 1 Week Reason: VITAL SIGNS Height 66 in 2016-10-10 Weight 135.8 lbs 2016-10-10 Temperature 98.4 degrees Fahrenheit 2016-10-10 Heart Rate 98 bpm 2016-10-10 Respiratory Rate 18 2016-10-10 BMI 21.92 kg/m2 2016-10-10 Blood pressure systolic 122 mmHg 2016-10-10 Blood pressure diastolic 78 mmHg 2016-10-10 MEDICATIONS Medication Instructions Dosage Frequency Start Date End Date Duration Status Cyclobenzaprine HCl 5 mg Orally Three times a day 1 tablet 8h Active BusPIRone HCl 15 MG TAKE 2 TABLETS ( 30 MG ) BY MOUTH THREE TIMES DAILY 30 Active Insulin Pump BH9224 Active Gabapentin 800 MG Orally 3 times a day 1 tablet 8h 30 Active Vistaril 50 MG Orally 3 times a day 1 capsule as needed 8h Apr, 30 day(s) Active Bactrim DS 800-160 MG Orally Twice a day 1 tablet 12h 07 Oct, 2016Oct 07 days Active RESULTS Name Result Date Reference Range A1C (IN HOUSE) 2016-10-10 A1C IN HOUSE 9.1 4.3 - 5.6 % Previous A1c 11.7 Lot [id number] Exp date 07/21 PROCEDURES Procedure Date Ordered Result Body Site GLYCATED HEMOGLOBIN TEST Oct 10, 2016 IMMUNIZATIONS No Known Immunizations MEDICAL (GENERAL) HISTORY [...] in her foot December 2016 Hospitalization History [facility] 02/2017
--- OUTSIDE RECORDS SUMMARY | 2017-08-19 10:58 | XMS REPORT ---
Author Author DAVE GRAFF Organization [facility] Address [address] [place] [address] Care Team Providers Care Power Plant Assistant Name Role Phone HECTOR GRAFFNETTE Unavailable PROBLEMS Type Condition ICD9-CM Code [id number] Code Onset Dates Condition Status SNOMED Code Problem Endocrine disorder, unspecified E34.9 Active 905488320 Problem Primary insomnia F51.01 Active 2538444 Problem Gastroesophageal reflux disease without esophagitis K21.9 Active 689525273 Problem Right upper quadrant pain R10.11 Active 183027502 Problem Toe amputation status, right Z89.421 Active 466381609 Problem Cannabis dependence F12.20 Active 19892164 Problem History of alcohol dependence F10.21 Active 798141511 Problem Methamphetamine use disorder, severe, 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 Active Problem History of alcohol abuse 305.03 Active 456438358 Problem Type 1 diabetes mellitus with foot ulcer E10.621 Active 940763325 Problem Generalized anxiety disorder F41.1 Active 95743618 Problem Type 1 diabetes mellitus with diabetic neuropathy E10.40 Active 457839049 Problem Microalbuminuria R80.9 Active 232908989 Problem Substance abuse F19.10 Active 54794128 Problem Diabetes mellitus E11.9 Active 85536342 Problem Hep C w/o coma, chronic B18.2 Active 310387723 Problem 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
--- OUTSIDE RECORDS SUMMARY | 2017-08-19 10:58 | XMS REPORT ---
Author Author DAVE GRAFF [facility] Address [address] [place] [address] Care Team Providers Care Lawn Mower Sharpener Name Role Phone HECTOR GRAFFNETTE Unavailable PROBLEMS Type Condition ICD9-CM Code [id number] Code Onset Dates Condition Status SNOMED Code Problem Endocrine disorder, unspecified E34.9 Active 975222465 Problem Primary insomnia F51.01 Active 0211811 Problem Gastroesophageal reflux disease without esophagitis K21.9 Active 194527164 Problem Right upper quadrant pain R10.11 Active 059162616 Problem Toe amputation status, right Z89.421 Active 390285347 Problem Cannabis dependence F12.20 Active 26008462 Problem History of alcohol dependence F10.21 Active 500627628 Problem Methamphetamine use disorder, severe, 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 Active Problem History of alcohol abuse 305.03 Active 498949113 Problem Type 1 diabetes mellitus with foot ulcer E10.621 Active 474809622 Problem Generalized anxiety disorder F41.1 Active 27974411 Problem Type 1 diabetes mellitus with diabetic neuropathy E10.40 Active 570026796 Problem Microalbuminuria R80.9 Active 496947275 Problem Substance abuse F19.10 Active 33577981 Problem Diabetes mellitus E11.9 Active 95139742 Problem Hep C w/o coma, chronic B18.2 Active 304384052 Problem 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
--- OUTSIDE RECORDS SUMMARY | 2017-08-19 10:58 | XMS REPORT ---
Author Author DAVE GRAFF Organization [facility] Address [address] [place] [address] Care Team Providers Care Rag Room Supervisor Name Role Phone HECTOR GRAFFNETTE Unavailable PROBLEMS Type Condition ICD9-CM Code [id number] Code Onset Dates Condition Status SNOMED Code Problem Endocrine disorder, unspecified E34.9 Active 461796404 Problem Primary insomnia F51.01 Active 1569041 Problem Gastroesophageal reflux disease without esophagitis K21.9 Active 078890785 Problem Right upper quadrant pain R10.11 Active 884124927 Problem Toe amputation status, right Z89.421 Active 171733408 Problem Cannabis dependence F12.20 Active 26806038 Problem History of alcohol dependence F10.21 Active 353358331 Problem Methamphetamine use disorder, severe, 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 Active Problem History of alcohol abuse 305.03 Active 645564183 Problem Type 1 diabetes mellitus with foot ulcer E10.621 Active 226508443 Problem Generalized anxiety disorder F41.1 Active 10446392 Problem Type 1 diabetes mellitus with diabetic neuropathy E10.40 Active 086177862 Problem Microalbuminuria R80.9 Active 986496374 Problem Substance abuse F19.10 Active 28703353 Problem Diabetes mellitus E11.9 Active 33603055 Problem Hep C w/o coma, chronic B18.2 Active 371780667 Problem 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 Active 14370227 Problem 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 Active 778583833 Problem Anxiety F41.9 Active 01633957 ALLERGIES Substance Reaction Event Type Date Status NovoLog Flexpen hypoglycemia Drug Allergy January, Active gluten bloating Non Drug Allergy January, Active SOCIAL HISTORY Never Assessed PLAN OF CARE Activity Details Follow Up 1 Week Reason:uds drug abuse VITAL SIGNS Height 66 in 2017-01-15 Weight 149.6 lbs 2017-01-15 Temperature 98.3 degrees Fahrenheit 2017-01-15 Heart Rate 98 bpm 2017-01-15 Respiratory Rate 20 2017-01-15 BMI 24.14 kg/m2 2017-01-15 Blood pressure systolic 138 mmHg 2017-01-15 Blood pressure diastolic 84 mmHg 2017-01-15 MEDICATIONS Medication Instructions Dosage Frequency Start Date End Date Duration Status Naproxen 500 mg Orally every 12 hrs 1 tablet as needed 12h January, Apr, 30 days Active Tresiba FlexTouch 100 UNIT/ML Subcutaneous at bedtime 35 units Dec, Active Humalog 100 UNIT/ML Subcutaneous 3 times a day 3 units with meals 8h Active Test strips 1 tablet as directed Apr, Active Trazodone HCl 100 mg Orally Once a day 1 tablet at bedtime 24h January, 30 day(s) Active Vistaril 50 mg Orally 3 times a day 1 capsule as needed 8h Apr, 30 days Active Paxil 20 mg Orally Once a day 1 tablet in the morning 24h January, 30 day(s) Active Gabapentin 800 MG Orally 4 times a day 1 tablet 6h January, 30 day( s) Active BusPIRone HCl 15 mg Orally 3 times a day one tablet 8h 30 days Active Lancets Box as directed 6h Apr, Active RESULTS Name Result Date Reference Range A1C (IN HOUSE) 2017-01-15 A1C IN HOUSE 8.2 4.3 - 5.6 % Previous A1c 9.1 Lot [id number] Exp date 09/2018 URINE DRUG SCREEN (IN HOUSE) 2017-01-15 Lot # [id number] Exp date 10/2018 Control + COCAINE Neg AMPH neg MTD neg THC neg OPIATE neg BENZO neg PCP neg BAR neg OXY neg MAMP neg TCA neg BUP neg MDMA neg PROCEDURES Procedure Date Ordered Result Body Site GLYCATED HEMOGLOBIN TEST January 15, 2017 LAB NOT BILLED BY [facility] January 15, 2017 IMMUNIZATIONS No Known Immunizations MEDICAL (GENERAL) [...]
--- OUTSIDE RECORDS SUMMARY | 2017-08-19 10:58 | XMS REPORT ---
Author Author MARGARITO ANDREWS Organization [facility] Address [address] [place] [address] Care Team Providers Care Engineer Fishing Vessel Name Role Phone MARGARITO ANDREWS Unavailable PROBLEMS Type Condition ICD9-CM Code [id number] Code Onset Dates Condition Status SNOMED Code Problem Endocrine disorder, unspecified E34.9 Active 056401234 Problem Primary insomnia F51.01 Active 2227475 Problem Gastroesophageal reflux disease without esophagitis K21.9 Active 496097208 Problem Right upper quadrant pain R10.11 Active 407610797 Problem Toe amputation status, right Z89.421 Active 285662098 Problem Cannabis dependence F12.20 Active 07823213 Problem History of alcohol dependence F10.21 Active 820855648 Problem Methamphetamine use disorder, severe, 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 Active Problem History of alcohol abuse 305.03 Active 068172913 Problem Type 1 diabetes mellitus with foot ulcer E10.621 Active 158089739 Problem Generalized anxiety disorder F41.1 Active 05519443 Problem Type 1 diabetes mellitus with diabetic neuropathy E10.40 Active 628594582 Problem Microalbuminuria R80.9 Active 376566472 Problem Substance abuse F19.10 Active 17823187 Problem Diabetes mellitus E11.9 Active 03053343 Problem Hep C w/o coma, chronic B18.2 Active 820165210 Problem 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 Active 87619137 Problem 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 Active 599268257 Problem Anxiety F41.9 Active 87380572 ALLERGIES No Information SOCIAL HISTORY Never Assessed PLAN OF CARE Activity Details Follow Up 2 - 3 Days Reason: VITAL SIGNS MEDICATIONS Unknown Medications RESULTS Name Result Date Reference Range URINE DRUG SCREEN (IN HOUSE) 2017-02-06 Lot # [id number] Exp date Oct 2018 Control + COCAINE Negative AMPH Negative MTD Negative THC Negative OPIATE POSITIVE BENZO POSITIVE PCP Negative BAR Negative OXY Negative MAMP Negative TCA Negative BUP Negative MDMA Negative PROCEDURES Procedure Date Ordered Result Body Site Alcohol and/or drug services February 06, 2017 LAB NOT BILLED BY [facility] February 06, 2017 IMMUNIZATIONS No Known Immunizations MEDICAL (GENERAL) [...]
--- OUTSIDE RECORDS SUMMARY | 2017-08-19 10:59 | XMS REPORT ---
Author Author DAVE GRAFF Organization [facility] Address [address] [place] [address] Care Team Providers Care Math Professor Name Role Phone HECTOR GRAFFNETTE Unavailable PROBLEMS Type Condition ICD9-CM Code [id number] Code Onset Dates Condition Status SNOMED Code Problem Endocrine disorder, unspecified E34.9 Active 164191946 Problem Primary insomnia F51.01 Active 5233309 Problem Gastroesophageal reflux disease without esophagitis K21.9 Active 502406977 Problem Right upper quadrant pain R10.11 Active 109085948 Problem Toe amputation status, right Z89.421 Active 218814082 Problem Cannabis dependence F12.20 Active 10125380 Problem History of alcohol dependence F10.21 Active 645049985 Problem Methamphetamine use disorder, severe, 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 Active Problem History of alcohol abuse 305.03 Active 768928299 Problem Type 1 diabetes mellitus with foot ulcer E10.621 Active 026507620 Problem Generalized anxiety disorder F41.1 Active 50784367 Problem Type 1 diabetes mellitus with diabetic neuropathy E10.40 Active 261041337 Problem Microalbuminuria R80.9 Active 024629179 Problem Substance abuse F19.10 Active 25854031 Problem Diabetes mellitus E11.9 Active 57707961 Problem Hep C w/o coma, chronic B18.2 Active 851424267 Problem 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 Active 91501524 Problem 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
--- OUTSIDE RECORDS SUMMARY | 2017-08-19 10:59 | XMS REPORT ---
Author Author DAVE GRAFF Organization [facility] Address [address] [place] [address] Care Team Providers Care Labor Contract Analyst Name Role Phone HECTOR GRAFFNETTE Unavailable PROBLEMS Type Condition ICD9-CM Code [id number] Code Onset Dates Condition Status SNOMED Code Problem Endocrine disorder, unspecified E34.9 Active 647349851 Problem Primary insomnia F51.01 Active 4797408 Problem Gastroesophageal reflux disease without esophagitis K21.9 Active 433961132 Problem Right upper quadrant pain R10.11 Active 821807130 Problem Toe amputation status, right Z89.421 Active 007738226 Problem Cannabis dependence F12.20 Active 68867060 Problem History of alcohol dependence F10.21 Active 940082200 Problem Methamphetamine use disorder, severe, 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 Active Problem History of alcohol abuse 305.03 Active 972043359 Problem Type 1 diabetes mellitus with foot ulcer E10.621 Active 332573214 Problem Generalized anxiety disorder F41.1 Active 30044533 Problem Type 1 diabetes mellitus with diabetic neuropathy E10.40 Active 880047466 Problem Microalbuminuria R80.9 Active 809218852 Problem Substance abuse F19.10 Active 91494621 Problem Diabetes mellitus E11.9 Active 90527036 Problem Hep C w/o coma, chronic B18.2 Active 486854599 Problem 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
--- OUTSIDE RECORDS SUMMARY | 2017-08-19 10:59 | XMS REPORT ---
Author Author PRERNA DAVE Organization [facility] Address [address] [place] [address] Care Team Providers Care Stump Blower Name Role Phone DAVE GRAFF Unavailable PROBLEMS Type Condition ICD9-CM Code [id number] Code Onset Dates Condition Status SNOMED Code Problem Endocrine disorder, unspecified E34.9 Active 360136757 Problem Primary insomnia F51.01 Active 3613311 Problem Gastroesophageal reflux disease without esophagitis K21.9 Active 753773109 Problem Right upper quadrant pain R10.11 Active 495735126 Problem Toe amputation status, right Z89.421 Active 688061616 Problem Cannabis dependence F12.20 Active 36039360 Problem History of alcohol dependence F10.21 Active 479339882 Problem Methamphetamine use disorder, severe, 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 Active Problem History of alcohol abuse 305.03 Active 843785174 Problem Type 1 diabetes mellitus with foot ulcer E10.621 Active 737381691 Problem Generalized anxiety disorder F41.1 Active 80660802 Problem Type 1 diabetes mellitus with diabetic neuropathy E10.40 Active 269051707 Problem Microalbuminuria R80.9 Active 198053720 Problem Substance abuse F19.10 Active 74034283 Problem Diabetes mellitus E11.9 Active 53828854 Problem Hep C w/o coma, chronic B18.2 Active 861762483 Problem 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 Active 97010790 Problem 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 Active 073212876 Problem Anxiety F41.9 Active 89872314 ALLERGIES No Information SOCIAL HISTORY Never Assessed PLAN OF CARE VITAL SIGNS MEDICATIONS Unknown Medications RESULTS Name Result Date Reference Range URINE DRUG SCREEN (IN HOUSE) Lot # [id number] Exp date 10/2018 Control + COCAINE Negative AMPH Negative MTD Negative THC Negative OPIATE Negative BENZO Negative PCP Negative BAR Negative OXY Negative MAMP Negative TCA Negative BUP Negative MDMA Negative PROCEDURES Procedure Date Ordered Result Body Site LAB NOT BILLED BY [facility] January 22, 2017 IMMUNIZATIONS No Known Immunizations MEDICAL (GENERAL) [...]
--- OUTSIDE RECORDS SUMMARY | 2017-08-19 10:59 | XMS REPORT ---
Author Author DAVE GRAFF Organization [facility] Address [address] [place] [address] Care Team Providers Care Medical Technologist Clinical Name Role Phone HECTOR GRAFFNETTE Unavailable PROBLEMS Type Condition ICD9-CM Code [id number] Code Onset Dates Condition Status SNOMED Code Problem Endocrine disorder, unspecified E34.9 Active 779192085 Problem Primary insomnia F51.01 Active 6225270 Problem Gastroesophageal reflux disease without esophagitis K21.9 Active 826893315 Problem Right upper quadrant pain R10.11 Active 333710682 Problem Toe amputation status, right Z89.421 Active 034839972 Problem Cannabis dependence F12.20 Active 69283690 Problem History of alcohol dependence F10.21 Active 216124157 Problem Methamphetamine use disorder, severe, 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 Active Problem History of alcohol abuse 305.03 Active 762374896 Problem Type 1 diabetes mellitus with foot ulcer E10.621 Active 402876088 Problem Generalized anxiety disorder F41.1 Active 39605136 Problem Type 1 diabetes mellitus with diabetic neuropathy E10.40 Active 604959372 Problem Microalbuminuria R80.9 Active 009371399 Problem Substance abuse F19.10 Active 16181472 Problem Diabetes mellitus E11.9 Active 62481383 Problem Hep C w/o coma, chronic B18.2 Active 266939119 Problem 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 Active 12789715 Problem 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 Active 654255877 Problem Anxiety F41.9 Active 39881994 ALLERGIES Substance Reaction Event Type Date Status NovoLog Flexpen hypoglycemia Drug Allergy January, Active gluten bloating Non Drug Allergy January, Active SOCIAL HISTORY Never Assessed PLAN OF CARE Activity Details Follow Up 1 Week Reason:uds Pending Test CMP VITAL SIGNS Height 66 in 2017-01-31 Weight 149.0 lbs 2017-01-31 Temperature 98.7 degrees Fahrenheit 2017-01-31 Heart Rate 80 bpm 2017-01-31 Respiratory Rate 22 2017-01-31 BMI 24.05 kg/m2 2017-01-31 Blood pressure systolic 124 mmHg 2017-01-31 Blood pressure diastolic 82 mmHg 2017-01-31 MEDICATIONS Medication Instructions Dosage Frequency Start Date End Date Duration Status Paxil 20 mg Orally Once a day 1 tablet in the morning 24h January, 30 day(s) Active Lancets Box as directed 6h Apr, Active Vistaril 50 mg Orally 3 times a day capsule as needed 8h January, 10 days Active Test strips 1 tablet Accucheck Smartview- DX- E10.621 6 times per day test blood sugar Apr, Active Ibuprofen 800 MG Orally Three times a day 1 tablet with food or milk 8h January, Feb, 30 day(s) Active Gabapentin 800 MG Orally 4 times a day 1 tablet 6h January, 30 day( s) Active Trazodone HCl 100 mg Orally Once a day 1 tablet at bedtime 24h January, 30 day(s) Active BusPIRone HCl 15 mg Orally 3 times a day one tablet 8h 30 days Active Hydrocortisone 2.5 % Externally Twice a day 1 application to affected area 12h January, Feb, 30 day(s) Active Humalog 100 UNIT/ML ICD10- E10.40 per pump 50 units daily thru insulin pump Active Vancomycin HCl in Dextrose 1 GM/200ML as directed January, Active RESULTS Name Result Date Reference Range URINE DRUG SCREEN (IN HOUSE) 2017-01-31 Lot # [id number] Exp date 10/2018 Control + COCAINE NEG AMPH NEG MTD NEG THC NEG OPIATE POS BENZO NEG PCP NEG BAR NEG OXY NEG MAMP NEG TCA NEG BUP NEG MDMA NEG PROCEDURES Procedure Date Ordered Result Body [facility] January [facility], 2017 IMMUNIZATIONS No Known Immunizations MEDICAL (GENERAL) [...] her foot December 2016 Hospitalization History [facility] 02/2017
--- OUTSIDE RECORDS SUMMARY | 2017-08-19 10:59 | XMS REPORT ---
Author Author DAVE GRAFF Organization [facility] Address [address] [place] [address] Care Team Providers Care News Assistant Name Role Phone HECTOR GRAFFNETTE Unavailable PROBLEMS Type Condition ICD9-CM Code [id number] Code Onset Dates Condition Status SNOMED Code Problem Endocrine disorder, unspecified E34.9 Active 191000932 Problem Primary insomnia F51.01 Active 0985539 Problem Gastroesophageal reflux disease without esophagitis K21.9 Active 132688464 Problem Right upper quadrant pain R10.11 Active 432552362 Problem Toe amputation status, right Z89.421 Active 661804638 Problem Cannabis dependence F12.20 Active 70465731 Problem History of alcohol dependence F10.21 Active 243816108 Problem Methamphetamine use disorder, severe, 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 Active Problem History of alcohol abuse 305.03 Active 780501713 Problem Type 1 diabetes mellitus with foot ulcer E10.621 Active 973147074 Problem Generalized anxiety disorder F41.1 Active 54511235 Problem Type 1 diabetes mellitus with diabetic neuropathy E10.40 Active 243341486 Problem Microalbuminuria R80.9 Active 093990470 Problem Substance abuse F19.10 Active 79970971 Problem Diabetes mellitus E11.9 Active 73692114 Problem Hep C w/o coma, chronic B18.2 Active 611338312 Problem 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 Active 24043949 Problem 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 Active 652682279 Problem Anxiety F41.9 Active 54536671 ALLERGIES Substance Reaction Event Type Date Status NovoLog Flexpen hypoglycemia Drug Allergy Feb, Active gluten bloating Non Drug Allergy Feb, Active SOCIAL HISTORY Never Assessed PLAN OF CARE Activity Details Follow Up 1 Week Reason:nesxt VITAL SIGNS Height 66 in 2017-02-05 Weight 148.2 lbs 2017-02-05 Temperature 98.2 degrees Fahrenheit 2017-02-05 Heart Rate 88 bpm 2017-02-05 Respiratory Rate 20 2017-02-05 BMI 23.92 kg/m2 2017-02-05 Blood pressure systolic 116 mmHg 2017-02-05 Blood pressure diastolic 70 mmHg 2017-02-05 MEDICATIONS Medication Instructions Dosage Frequency Start Date End Date Duration Status Hydrocortisone 2.5 % Externally Twice a day 1 application to affected area 12h January, Feb, 30 day(s) Active BusPIRone HCl 15 mg Orally 3 times a day one tablet 8h 30 days Active Test strips 1 tablet Accucheck Smartview- DX- E10.621 6 times per day test blood sugar Apr, Active Gabapentin 800 MG Orally 4 times a day 1 tablet 6h January, 30 day( s) Active Trazodone HCl 100 mg Orally Once a day 1 tablet at bedtime 24h January, 30 day(s) Active Advocate Insulin Pen Melvin 31G X 8 MM DIRECTED WITH INSULIN PENS 30 Active Cyclobenzaprine HCl 5 mg Orally Three times a day 1 tablet 8h Active Paxil 20 mg Orally Once a day 1 tablet in the morning 24h January, 30 day(s) Active Nexium 40 MG Orally Once a day 1 capsule 24h Nov, 90 days Active Cetirizine HCl 10 MG Orally Once a day 1 tablet 24h Feb, 30 day (s) Active Lancets Box as directed 6h Apr, Active Permethrin 5 % Externally Once today and repeat in 7 days 1 application head to toe at bedtime, wash off thoroughly in the am, repeat in 7 days Feb, Feb, 7 day(s) Active Ibuprofen 800 MG Orally Three times a day 1 tablet with food or milk 8h January, Feb, 30 day(s) Active BuSpar 30 MG Orally 3 times a day 1 tablet 8h Active Vistaril 50 mg Orally 3 times a day capsule as needed 8h January, 10 days Active Humalog 100 UNIT/ML ICD10- E10.40 per pump 50 units daily thru insulin pump Active RESULTS No Results PROCEDURES Procedure Date Ordered Result Body Site X-RAY EXAM OF FOOT February 05, 2017 IMMUNIZATIONS No Known Immunizations MEDICAL (GENERAL) [...]
--- OUTSIDE RECORDS SUMMARY | 2017-08-19 10:59 | XMS REPORT ---
Author Author SOPHIA NOVA [facility] Address [address] [place] [address] Care Team Providers Care Computer Systems Analyst Name Role Phone SOPHIA NOVA Unavailable PROBLEMS Type Condition ICD9-CM Code PWA38-IL Code Onset Dates Condition Status SNOMED Code Problem Endocrine disorder, unspecified E34.9 Active 729937756 Problem Primary insomnia F51.01 Active 6853370 Problem Gastroesophageal reflux disease without esophagitis K21.9 Active 544474546 Problem Right upper quadrant pain R10.11 Active 600534300 Problem Toe amputation status, right Z89.421 Active 328290290 Problem Cannabis dependence F12.20 Active 42918858 Problem History of alcohol dependence F10.21 Active 593707284 Problem Methamphetamine use disorder, severe, 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 Active Problem History of alcohol abuse 305.03 Active 744494278 Problem Type 1 diabetes mellitus with foot ulcer E10.621 Active 329548915 Problem Generalized anxiety disorder F41.1 Active 86543881 Problem Type 1 diabetes mellitus with diabetic neuropathy E10.40 Active 635669460 Problem Microalbuminuria R80.9 Active 492041382 Problem Substance abuse F19.10 Active 15552975 Problem Diabetes mellitus E11.9 Active 57980377 Problem Hep C w/o coma, chronic B18.2 Active 232958407 Problem 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 Active 22899183 Problem 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 Active 953897701 Problem Anxiety F41.9 Active 50600026 ALLERGIES Substance Reaction Event Type Date Status NovoLog Flexpen hypoglycemia Drug Allergy January, Active gluten bloating Non Drug Allergy January, Active SOCIAL HISTORY Never Assessed PLAN OF CARE VITAL SIGNS Height 66 in 2017-01-24 Weight 148.0 lbs 2017-01-24 Temperature 98.3 degrees Fahrenheit 2017-01-24 Heart Rate 80 bpm 2017-01-24 Respiratory Rate 20 2017-01-24 BMI 23.89 kg/m2 2017-01-24 Blood pressure systolic 136 mmHg 2017-01-24 Blood pressure diastolic 88 mmHg 2017-01-24 MEDICATIONS Medication Instructions Dosage Frequency Start Date End Date Duration Status Paxil 20 mg Orally Once a day 1 tablet in the morning 24h January, 30 day(s) Active BusPIRone HCl 15 mg Orally 3 times a day one tablet 8h 30 days Active Naproxen 500 mg Orally every 12 hrs 1 tablet as needed 12h January, Apr, 30 days Active Vancomycin HCl in Dextrose 1 GM/200ML as directed January, Active Gabapentin 800 MG Orally 4 times a day 1 tablet 6h January, 30 day( s) Active Lancets Box as directed 6h Apr, Active Vistaril 50 mg Orally 3 times a day 1 capsule as needed 8h Apr, 30 days Active Trazodone HCl 100 mg Orally Once a day 1 tablet at bedtime 24h January, 30 day(s) Active Test strips 1 tablet as directed Apr, Active PredniSONE 20 mg Orally Once a day 2 tablets 24h January, January, 05 days Active Humalog 100 UNIT/ML ICD10- E10.40 [...]
--- OUTSIDE RECORDS SUMMARY | 2017-08-19 11:00 | XMS REPORT ---
Author Author DAVE GRAFF [facility] Address [address] [place] [address] Care Team Providers Care Pill Maker Name Role Phone HECTOR GRAFFNETTE Unavailable PROBLEMS Type Condition ICD9-CM Code [id number] Code Onset Dates Condition Status SNOMED Code Problem Endocrine disorder, unspecified E34.9 Active 780023804 Problem Primary insomnia F51.01 Active 4936894 Problem Gastroesophageal reflux disease without esophagitis K21.9 Active 863300764 Problem Right upper quadrant pain R10.11 Active 502235922 Problem Toe amputation status, right Z89.421 Active 820707227 Problem Cannabis dependence F12.20 Active 29874646 Problem History of alcohol dependence F10.21 Active 974298932 Problem Methamphetamine use disorder, severe, 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 Active Problem History of alcohol abuse 305.03 Active 189903969 Problem Type 1 diabetes mellitus with foot ulcer E10.621 Active 974044018 Problem Generalized anxiety disorder F41.1 Active 99823592 Problem Type 1 diabetes mellitus with diabetic neuropathy E10.40 Active 713459843 Problem Microalbuminuria R80.9 Active 151757864 Problem Substance abuse F19.10 Active 70825764 Problem Diabetes mellitus E11.9 Active 80942424 Problem Hep C w/o coma, chronic B18.2 Active 652788282 Problem 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
--- OUTSIDE RECORDS SUMMARY | 2017-08-19 11:00 | XMS REPORT ---
Author Author DAVE GRAFF Organization [facility] Address [address] [place] [address] Care Team Providers Care Licensed Sales Producer Name Role Phone HECTOR GRAFFNETTE Unavailable PROBLEMS Type Condition ICD9-CM Code QWQ03-DM Code Onset Dates Condition Status SNOMED Code Problem Endocrine disorder, unspecified E34.9 Active 585806655 Problem Primary insomnia F51.01 Active 0507250 Problem Gastroesophageal reflux disease without esophagitis K21.9 Active 308537192 Problem Right upper quadrant pain R10.11 Active 326453737 Problem Toe amputation status, right Z89.421 Active 749273812 Problem Cannabis dependence F12.20 Active 43801771 Problem History of alcohol dependence F10.21 Active 204179774 Problem Methamphetamine use disorder, severe, 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 Active Problem History of alcohol abuse 305.03 Active 918536015 Problem Type 1 diabetes mellitus with foot ulcer E10.621 Active 897484553 Problem Generalized anxiety disorder F41.1 Active 02157123 Problem Type 1 diabetes mellitus with diabetic neuropathy E10.40 Active 373312152 Problem Microalbuminuria R80.9 Active 362014536 Problem Substance abuse F19.10 Active 15118247 Problem Diabetes mellitus E11.9 Active 45880777 Problem Hep C w/o coma, chronic B18.2 Active 044652913 Problem 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 Active 73355179 Problem 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 Active 641172376 Problem Anxiety F41.9 Active 09529997 ALLERGIES Substance Reaction Event Type Date Status NovoLog Flexpen hypoglycemia Drug Allergy Nov, Active gluten bloating Non Drug Allergy Nov, Active SOCIAL HISTORY Never Assessed PLAN OF CARE Activity Details Follow Up 4 Weeks Reason:diabetes, open wound VITAL SIGNS Height 66 in 2016-11-02 Weight 145 lbs 2016-11-02 Temperature 97.9 degrees Fahrenheit 2016-11-02 Heart Rate 96 bpm 2016-11-02 Respiratory Rate 16 2016-11-02 BMI 23.40 kg/m2 2016-11-02 Blood pressure systolic 130 mmHg 2016-11-02 Blood pressure diastolic 90 mmHg 2016-11-02 MEDICATIONS Medication Instructions Dosage Frequency Start Date End Date Duration Status Test strips 1 tablet as directed Apr, Active Nexium 40 MG Orally Once a day 1 capsule 24h Nov, 90 days Active Lisinopril 5 MG Orally Once a day 2 tablets 24h Nov, 90 days Active Vistaril 50 MG Orally 3 times a day 1 capsule as needed 8h Apr, 30 day(s) Active Lancets Box as directed 6h Apr, Active Insulin Pump VT3546 Active Paxil 20 mg Orally Once a day 1 tablet in the morning 24h Mar, Active Gabapentin 800 MG Orally 3 times a day 1 tablet 8h 60 days Active BusPIRone HCl 15 MG TAKE 2 TABLETS ( 30 MG ) BY MOUTH THREE TIMES DAILY 30 Active Humalog 100 UNIT/ML USE DIRECTED PER INSULIN PUMP- 2 VIALS MONTHLY 30 Active RESULTS Name Result Date Reference Range MICROALBUMIN, URINE (IN HOUSE) 2016-11-02 MICROALBUMIN Abnormal Lot # Exp Clarity clear Color yellow ALB 80 mg/L CRE 100mg/dl A:C (IN HOUSE) 30-300mg/g Control Control Lot # Exp URINE DRUG SCREEN (IN HOUSE) 2016-11-02 Lot # [id number] Exp date 07/2018 Control + COCAINE negative AMPH negative MTD negative THC negative OPIATE positive BENZO positive PCP negative BAR negative OXY negative MAMP negative TCA negative BUP negative MDMA negative UA LONG DIP (IN HOUSE) 2016-11-02 Lot # [id number] Exp date 10-03-2017 Clarity celar Color yellow Odor nonw GLU negative KAYLAH negative KET negative SG 1.025 BLO trace-intact pH 5.5 Protein negative URO 0.2 NIT negative JEWEL negative Lot # Exp date CBC 2016-11-02 WBC 7.9 3.4-10.8 RBC 4.62 3.77-5.28 Hemoglobin 11.2 11.1-15.9 Hematocrit 36.3 34.0-46.6 MCV 79 79-97 MCH 24.2 26.6-33.0 MCHC 30.9 31.5-35.7 RDW 14.6 12.3-15.4 Platelets 590 150-379 Neutrophils 55 Lymphs 32 Monocytes 7 Eos 4 Basos 2 Neutrophils (Absolute) 4.4 1.4-7.0 Lymphs (Absolute) 2.5 0.7-3.1 Monocytes(Absolute) 0.5 0.1-0.9 Eos (Absolute) 0.3 0.0-0.4 Baso (Absolute) 0.1 0.0-0.2 Immature Granulocytes 0 Immature Grans (Abs) 0.0 0.0-0.1 LIPID PANEL 2016-11-02 Cholesterol, Total 214 100-199 Triglycerides 107 0-149 HDL Cholesterol 60 >39 VLDL Cholesterol Caden 21 5-40 LDL Cholesterol Calc 133 0-99 CMP 2016-11-02 Glucose, Serum 144 65-99 BUN 17 6-20 Creatinine, Serum 0.99 0.57-1.00 eGFR If NonAfricn Am 75 >59 eGFR If Africn Am 87 >59 BUN/Creatinine Ratio 17 8-20 Sodium, Serum 137 134-144 Potassium, Serum 6.0 3.5-5.2 Chloride, Serum 104 96-106 Carbon Dioxide, Total 15 18-29 Calcium, Serum 8.7 8.7-10.2 Protein, Total, Serum 6.7 6.0-8.5 Albumin, Serum 3.5 3.5-5.5 Globulin, Total 3.2 1.5-4.5 A/G Ratio 1.1 1.1-2.5 Bilirubin, Total <0.2 0.0-1.2 Alkaline Phosphatase, S 149 39-117 AST (SGOT) 32 0-40 ALT (SGPT) 38 0-32 PROCEDURES Procedure Date Ordered Result Body Site MICROALBUMIN, SEMIQUANT November 02, 2016 DRUG TEST PRSMV DIR OPT OBS November 02, 2016 VENIPUNCT, ROUTINE* November 02, 2016 COMPREHEN METABOLIC PANEL November 02, 2016 COMPLETE CBC W/AUTO DIFF WBC November 02, 2016 URINALYSIS, AUTO, W/O SCOPE November 02, 2016 LIPID PANEL November 02, 2016 IMMUNIZATIONS No Known Immunizations MEDICAL (GENERAL) [...] her foot December 2016 Hospitalization History [facility] 02/2017
--- OUTSIDE RECORDS SUMMARY | 2017-08-19 11:00 | XMS REPORT ---
Author Author DAVE GRAFF Organization [facility] Address [address] [place] [address] Care Team Providers Care Community Fundraiser Name Role Phone GRAFF, DAVE Unavailable PROBLEMS Type Condition ICD9-CM Code [id number] Code Onset Dates Condition Status SNOMED Code Problem Endocrine disorder, unspecified E34.9 Active 427056685 Problem Primary insomnia F51.01 Active 8052935 Problem Gastroesophageal reflux disease without esophagitis K21.9 Active 056618241 Problem Right upper quadrant pain R10.11 Active 839067175 Problem Toe amputation status, right Z89.421 Active 127364001 Problem Cannabis dependence F12.20 Active 06986084 Problem History of alcohol dependence F10.21 Active 588778380 Problem Methamphetamine use disorder, severe, 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 Active Problem History of alcohol abuse 305.03 Active 693158714 Problem Type 1 diabetes mellitus with foot ulcer E10.621 Active 466419198 Problem Generalized anxiety disorder F41.1 Active 52660932 Problem Type 1 diabetes mellitus with diabetic neuropathy E10.40 Active 473131622 Problem Microalbuminuria R80.9 Active 693577057 Problem Substance abuse F19.10 Active 46004965 Problem Diabetes mellitus E11.9 Active 79602007 Problem Hep C w/o coma, chronic B18.2 Active 631209745 Problem 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
--- OUTSIDE RECORDS SUMMARY | 2017-08-19 11:00 | XMS REPORT ---
Author Author JOCELINE WEST Organization [facility] Address [address] [place] [address] Care Team Providers Care Track Moving Machine Operator Name Role Phone JOCELINE WEST Unavailable PROBLEMS Type Condition ICD9-CM Code [id number] Code Onset Dates Condition Status SNOMED Code Problem Endocrine disorder, unspecified E34.9 Active 939386152 Problem Primary insomnia F51.01 Active 1549413 Problem Gastroesophageal reflux disease without esophagitis K21.9 Active 081531964 Problem Right upper quadrant pain R10.11 Active 339123527 Problem Toe amputation status, right Z89.421 Active 942125939 Problem Cannabis dependence F12.20 Active 04304853 Problem History of alcohol dependence F10.21 Active 596937949 Problem Methamphetamine use disorder, severe, 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 Active Problem History of alcohol abuse 305.03 Active 001882803 Problem Type 1 diabetes mellitus with foot ulcer E10.621 Active 365865761 Problem Generalized anxiety disorder F41.1 Active 34292285 Problem Type 1 diabetes mellitus with diabetic neuropathy E10.40 Active 390140702 Problem Microalbuminuria R80.9 Active 658373351 Problem Substance abuse F19.10 Active 71989727 Problem Diabetes mellitus E11.9 Active 60031269 Problem Hep C w/o coma, chronic B18.2 Active 699272934 Problem 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
--- OUTSIDE RECORDS SUMMARY | 2017-08-19 11:00 | XMS REPORT ---
Author Author RITA Patel Organization [facility] Address [address] [place] [address] Care Team Providers Care Stitcher Utility Name Role Phone ireneRITA HENLEY Unavailable PROBLEMS Type Condition ICD9-CM Code [id number] Code Onset Dates Condition Status SNOMED Code Problem Endocrine disorder, unspecified E34.9 Active 318721838 Problem Primary insomnia F51.01 Active 9352524 Problem Gastroesophageal reflux disease without esophagitis K21.9 Active 935052791 Problem Right upper quadrant pain R10.11 Active 087905369 Problem Toe amputation status, right Z89.421 Active 473056357 Problem Cannabis dependence F12.20 Active 77130501 Problem History of alcohol dependence F10.21 Active 505486626 Problem Methamphetamine use disorder, severe, 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 Active Problem History of alcohol abuse 305.03 Active 865908081 Problem Type 1 diabetes mellitus with foot ulcer E10.621 Active 605443422 Problem Generalized anxiety disorder F41.1 Active 72549353 Problem Type 1 diabetes mellitus with diabetic neuropathy E10.40 Active 245387672 Problem Microalbuminuria R80.9 Active 980271195 Problem Substance abuse F19.10 Active 68214781 Problem Diabetes mellitus E11.9 Active 83159872 Problem Hep C w/o coma, chronic B18.2 Active 071515473 Problem 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
--- OUTSIDE RECORDS SUMMARY | 2017-08-19 11:00 | XMS REPORT ---
Author Author DAVE GRAFF Organization [facility] Address [address] [place] [address] Care Team Providers Care Separator Operator [employer] Name Role Phone HECTOR GRAFFNETTE Unavailable PROBLEMS Type Condition ICD9-CM Code [id number] Code Onset Dates Condition Status SNOMED Code Problem Endocrine disorder, unspecified E34.9 Active 423372309 Problem Primary insomnia F51.01 Active 9380780 Problem Gastroesophageal reflux disease without esophagitis K21.9 Active 387220441 Problem Right upper quadrant pain R10.11 Active 983105027 Problem Toe amputation status, right Z89.421 Active 118704597 Problem Cannabis dependence F12.20 Active 26737416 Problem History of alcohol dependence F10.21 Active 482883578 Problem Methamphetamine use disorder, severe, 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 Active Problem History of alcohol abuse 305.03 Active 248611826 Problem Type 1 diabetes mellitus with foot ulcer E10.621 Active 006235432 Problem Generalized anxiety disorder F41.1 Active 50431464 Problem Type 1 diabetes mellitus with diabetic neuropathy E10.40 Active 159189187 Problem Microalbuminuria R80.9 Active 867959727 Problem Substance abuse F19.10 Active 52698526 Problem Diabetes mellitus E11.9 Active 84155987 Problem Hep C w/o coma, chronic B18.2 Active 240446066 Problem 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
--- OUTSIDE RECORDS SUMMARY | 2017-08-19 11:00 | XMS REPORT ---
Author Author RITA Patel Organization [facility] Address [address] [place] [address] Care Team Providers Care Public Policy Analyst Name Role Phone ireneRITA HENLEY Unavailable PROBLEMS Type Condition ICD9-CM Code [id number] Code Onset Dates Condition Status SNOMED Code Problem Endocrine disorder, unspecified E34.9 Active 957627468 Problem Primary insomnia F51.01 Active 7655868 Problem Gastroesophageal reflux disease without esophagitis K21.9 Active 093085050 Problem Right upper quadrant pain R10.11 Active 482921623 Problem Toe amputation status, right Z89.421 Active 178499219 Problem Cannabis dependence F12.20 Active 15134895 Problem History of alcohol dependence F10.21 Active 641649220 Problem Methamphetamine use disorder, severe, 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 Active Problem History of alcohol abuse 305.03 Active 198836364 Problem Type 1 diabetes mellitus with foot ulcer E10.621 Active 505372357 Problem Generalized anxiety disorder F41.1 Active 98616228 Problem Type 1 diabetes mellitus with diabetic neuropathy E10.40 Active 642711574 Problem Microalbuminuria R80.9 Active 522983151 Problem Substance abuse F19.10 Active 42386647 Problem Diabetes mellitus E11.9 Active 66417304 Problem Hep C w/o coma, chronic B18.2 Active 356864871 Problem 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
--- OUTSIDE RECORDS SUMMARY | 2017-08-19 11:01 | XMS REPORT ---
Author Author RITA Patel Organization [facility] Address [address] [place] [address] Care Team Providers Care Lane Marker Installer Name Role Phone ireneRITA HENLEY Unavailable PROBLEMS Type Condition ICD9-CM Code [id number] Code Onset Dates Condition Status SNOMED Code Problem Endocrine disorder, unspecified E34.9 Active 003017179 Problem Primary insomnia F51.01 Active 9652013 Problem Gastroesophageal reflux disease without esophagitis K21.9 Active 426126839 Problem Right upper quadrant pain R10.11 Active 275540324 Problem Toe amputation status, right Z89.421 Active 320536983 Problem Cannabis dependence F12.20 Active 65669139 Problem History of alcohol dependence F10.21 Active 297983833 Problem Methamphetamine use disorder, severe, 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 Active Problem History of alcohol abuse 305.03 Active 697262208 Problem Type 1 diabetes mellitus with foot ulcer E10.621 Active 749582722 Problem Generalized anxiety disorder F41.1 Active 16421101 Problem Type 1 diabetes mellitus with diabetic neuropathy E10.40 Active 143621760 Problem Microalbuminuria R80.9 Active 063190590 Problem Substance abuse F19.10 Active 89986139 Problem Diabetes mellitus E11.9 Active 59531470 Problem Hep C w/o coma, chronic B18.2 Active 500547087 Problem 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
--- OUTSIDE RECORDS SUMMARY | 2017-08-19 11:01 | XMS REPORT ---
Author Author JOCELINE WEST Organization [facility] Address [address] [place] [address] Care Team Providers Care Associate Application Developer Name Role Phone JOCELINE WEST Unavailable PROBLEMS Type Condition ICD9-CM Code [id number] Code Onset Dates Condition Status SNOMED Code Problem Endocrine disorder, unspecified E34.9 Active 305012811 Problem Primary insomnia F51.01 Active 1525607 Problem Gastroesophageal reflux disease without esophagitis K21.9 Active 413808304 Problem Right upper quadrant pain R10.11 Active 164633865 Problem Toe amputation status, right Z89.421 Active 099672371 Problem Cannabis dependence F12.20 Active 49816450 Problem History of alcohol dependence F10.21 Active 302284172 Problem Methamphetamine use disorder, severe, 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 Active Problem History of alcohol abuse 305.03 Active 774969662 Problem Type 1 diabetes mellitus with foot ulcer E10.621 Active 022841354 Problem Generalized anxiety disorder F41.1 Active 98282659 Problem Type 1 diabetes mellitus with diabetic neuropathy E10.40 Active 497607826 Problem Microalbuminuria R80.9 Active 469059243 Problem Substance abuse F19.10 Active 07200861 Problem Diabetes mellitus E11.9 Active 42735338 Problem Hep C w/o coma, chronic B18.2 Active 984995260 Problem 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
--- OUTSIDE RECORDS SUMMARY | 2017-08-19 11:01 | XMS REPORT ---
Author Author ANSON Burnett Organization [facility] Address [address] [place] [address] Care Team Providers Care Applications Project Manager Name Role Phone ANSON Burnett Unavailable PROBLEMS Type Condition ICD9-CM Code [id number] Code Onset Dates Condition Status SNOMED Code Problem Endocrine disorder, unspecified E34.9 Active 816732465 Problem Primary insomnia F51.01 Active 3329019 Problem Gastroesophageal reflux disease without esophagitis K21.9 Active 398538387 Problem Right upper quadrant pain R10.11 Active 765991757 Problem Toe amputation status, right Z89.421 Active 938493113 Problem Cannabis dependence F12.20 Active 54359095 Problem History of alcohol dependence F10.21 Active 795384264 Problem Methamphetamine use disorder, severe, 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 Active Problem History of alcohol abuse 305.03 Active 272599277 Problem Type 1 diabetes mellitus with foot ulcer E10.621 Active 510246496 Problem Generalized anxiety disorder F41.1 Active 33099458 Problem Type 1 diabetes mellitus with diabetic neuropathy E10.40 Active 952404417 Problem Microalbuminuria R80.9 Active 158762187 Problem Substance abuse F19.10 Active 28057578 Problem Diabetes mellitus E11.9 Active 60358519 Problem Hep C w/o coma, chronic B18.2 Active 557076035 Problem 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 Active 28853633 Problem 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
--- OUTSIDE RECORDS SUMMARY | 2017-08-19 11:01 | XMS REPORT ---
Author Author MARGARITO ANDREWS Organization [facility] Address [address] [place] [address] Care Team Providers Care Software Publisher Name Role Phone MARGARITO ANDREWS Unavailable PROBLEMS Type Condition ICD9-CM Code PNB73-ON Code Onset Dates Condition Status SNOMED Code Problem Endocrine disorder, unspecified E34.9 Active 035708840 Problem Primary insomnia F51.01 Active 3648737 Problem Gastroesophageal reflux disease without esophagitis K21.9 Active 180102505 Problem Right upper quadrant pain R10.11 Active 434471968 Problem Toe amputation status, right Z89.421 Active 557711040 Problem Cannabis dependence F12.20 Active 54965891 Problem History of alcohol dependence F10.21 Active 765722375 Problem Methamphetamine use disorder, severe, 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 Active Problem History of alcohol abuse 305.03 Active 820771844 Problem Type 1 diabetes mellitus with foot ulcer E10.621 Active 024200294 Problem Generalized anxiety disorder F41.1 Active 02812885 Problem Type 1 diabetes mellitus with diabetic neuropathy E10.40 Active 770149139 Problem Microalbuminuria R80.9 Active 417859092 Problem Substance abuse F19.10 Active 15837925 Problem Diabetes mellitus E11.9 Active 12819325 Problem Hep C w/o coma, chronic B18.2 Active 047079562 Problem 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
--- OUTSIDE RECORDS SUMMARY | 2017-08-19 11:01 | XMS REPORT ---
Author Author RITA Patel Organization [facility] Address [address] [place] [address] Care Team Providers Care Motion Picture Set Grip Name Role Phone ireneRITA HENLEY Unavailable PROBLEMS Type Condition ICD9-CM Code LFD16-PI Code Onset Dates Condition Status SNOMED Code Problem Endocrine disorder, unspecified E34.9 Active 341307450 Problem Primary insomnia F51.01 Active 4695324 Problem Gastroesophageal reflux disease without esophagitis K21.9 Active 266363827 Problem Right upper quadrant pain R10.11 Active 209438451 Problem Toe amputation status, right Z89.421 Active 109851937 Problem Cannabis dependence F12.20 Active 28777588 Problem History of alcohol dependence F10.21 Active 631793878 Problem Methamphetamine use disorder, severe, 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 Active Problem History of alcohol abuse 305.03 Active 725229014 Problem Type 1 diabetes mellitus with foot ulcer E10.621 Active 967324466 Problem Generalized anxiety disorder F41.1 Active 51208765 Problem Type 1 diabetes mellitus with diabetic neuropathy E10.40 Active 054576021 Problem Microalbuminuria R80.9 Active 021748744 Problem Substance abuse F19.10 Active 00468038 Problem Diabetes mellitus E11.9 Active 47701012 Problem Hep C w/o coma, chronic B18.2 Active 551336489 Problem 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
--- OUTSIDE RECORDS SUMMARY | 2017-08-19 11:01 | XMS REPORT ---
Author Author MARGARITO ANDREWS [facility] Address [address] [place] [address] Care Team Providers Care Mechanical Specialist Name Role Phone MARGARITO ANDREWS Unavailable PROBLEMS Type Condition ICD9-CM Code NIY69-WO Code Onset Dates Condition Status SNOMED Code Problem Endocrine disorder, unspecified E34.9 Active 185793266 Problem Primary insomnia F51.01 Active 9446818 Problem Gastroesophageal reflux disease without esophagitis K21.9 Active 461181624 Problem Right upper quadrant pain R10.11 Active 092076028 Problem Toe amputation status, right Z89.421 Active 031246627 Problem Cannabis dependence F12.20 Active 74917925 Problem History of alcohol dependence F10.21 Active 915274979 Problem Methamphetamine use disorder, severe, 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 Active Problem History of alcohol abuse 305.03 Active 311531460 Problem Type 1 diabetes mellitus with foot ulcer E10.621 Active 561589827 Problem Generalized anxiety disorder F41.1 Active 92232471 Problem Type 1 diabetes mellitus with diabetic neuropathy E10.40 Active 957487657 Problem Microalbuminuria R80.9 Active 638361979 Problem Substance abuse F19.10 Active 06715258 Problem Diabetes mellitus E11.9 Active 45927152 Problem Hep C w/o coma, chronic B18.2 Active 705303582 Problem 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
--- OUTSIDE RECORDS SUMMARY | 2017-08-19 11:01 | XMS REPORT ---
Author Author ANSON Burnett Organization [facility] Address [address] [place] [address] Care Team Providers Care Civil Engineer Helper Name Role Phone ANSON Burnett Unavailable PROBLEMS Type Condition ICD9-CM Code YBB66-CD Code Onset Dates Condition Status SNOMED Code Problem Endocrine disorder, unspecified E34.9 Active 871391686 Problem Primary insomnia F51.01 Active 7589297 Problem Gastroesophageal reflux disease without esophagitis K21.9 Active 910350434 Problem Right upper quadrant pain R10.11 Active 037583848 Problem Toe amputation status, right Z89.421 Active 847323406 Problem Cannabis dependence F12.20 Active 12938681 Problem History of alcohol dependence F10.21 Active 936563456 Problem Methamphetamine use disorder, severe, 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 Active Problem History of alcohol abuse 305.03 Active 170323684 Problem Type 1 diabetes mellitus with foot ulcer E10.621 Active 585690284 Problem Generalized anxiety disorder F41.1 Active 73496625 Problem Type 1 diabetes mellitus with diabetic neuropathy E10.40 Active 776531158 Problem Microalbuminuria R80.9 Active 004473375 Problem Substance abuse F19.10 Active 12687619 Problem Diabetes mellitus E11.9 Active 74858757 Problem Hep C w/o coma, chronic B18.2 Active 081200069 Problem 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
--- OUTSIDE RECORDS SUMMARY | 2017-08-19 11:01 | XMS REPORT ---
Author Author DAVE GRAFF Organization [facility] Address [address] [place] [address] Care Team Providers Care Copping Machine Operator Name Role Phone HECTOR GRAFFNETTE Unavailable PROBLEMS Type Condition ICD9-CM Code PRD20-UI Code Onset Dates Condition Status SNOMED Code Problem Endocrine disorder, unspecified E34.9 Active 728558505 Problem Primary insomnia F51.01 Active 7043086 Problem Gastroesophageal reflux disease without esophagitis K21.9 Active 398901385 Problem Right upper quadrant pain R10.11 Active 036692341 Problem Toe amputation status, right Z89.421 Active 452378961 Problem Cannabis dependence F12.20 Active 00791109 Problem History of alcohol dependence F10.21 Active 524303470 Problem Methamphetamine use disorder, severe, 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 Active Problem History of alcohol abuse 305.03 Active 083831075 Problem Type 1 diabetes mellitus with foot ulcer E10.621 Active 071027216 Problem Generalized anxiety disorder F41.1 Active 01376848 Problem Type 1 diabetes mellitus with diabetic neuropathy E10.40 Active 336093395 Problem Microalbuminuria R80.9 Active 221420405 Problem Substance abuse F19.10 Active 43057405 Problem Diabetes mellitus E11.9 Active 49841893 Problem Hep C w/o coma, chronic B18.2 Active 944010005 Problem 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
--- OUTSIDE RECORDS SUMMARY | 2017-08-19 11:01 | XMS REPORT ---
Author Author DAVE GRAFF [facility] Address [address] [place] [address] Care Team Providers Care Pattern Fitter Name Role Phone HECTOR GRAFFNETTE Unavailable PROBLEMS Type Condition ICD9-CM Code MTY52-KG Code Onset Dates Condition Status SNOMED Code Problem Endocrine disorder, unspecified E34.9 Active 391577748 Problem Primary insomnia F51.01 Active 1620097 Problem Gastroesophageal reflux disease without esophagitis K21.9 Active 967261203 Problem Right upper quadrant pain R10.11 Active 048914736 Problem Toe amputation status, right Z89.421 Active 304207870 Problem Cannabis dependence F12.20 Active 80385432 Problem History of alcohol dependence F10.21 Active 521635991 Problem Methamphetamine use disorder, severe, 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 Active Problem History of alcohol abuse 305.03 Active 875903868 Problem Type 1 diabetes mellitus with foot ulcer E10.621 Active 679013449 Problem Generalized anxiety disorder F41.1 Active 53805219 Problem Type 1 diabetes mellitus with diabetic neuropathy E10.40 Active 512608822 Problem Microalbuminuria R80.9 Active 734977492 Problem Substance abuse F19.10 Active 47968860 Problem Diabetes mellitus E11.9 Active 30064158 Problem Hep C w/o coma, chronic B18.2 Active 689913859 Problem 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
--- OUTSIDE RECORDS SUMMARY | 2017-08-19 11:02 | XMS REPORT ---
Author Author NORMA BISHOP Organization [facility] Address [address] [place] [address] Care Team Providers Care Marbleizer Name Role Phone NORMA BISHOP Unavailable PROBLEMS Type Condition ICD9-CM Code [id number] Code Onset Dates Condition Status SNOMED Code Problem Endocrine disorder, unspecified E34.9 Active 232193519 Problem Primary insomnia F51.01 Active 5958757 Problem Gastroesophageal reflux disease without esophagitis K21.9 Active 933153651 Problem Right upper quadrant pain R10.11 Active 171428442 Problem Toe amputation status, right Z89.421 Active 134762316 Problem Cannabis dependence F12.20 Active 19900884 Problem History of alcohol dependence F10.21 Active 619926240 Problem Methamphetamine use disorder, severe, 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 Active Problem History of alcohol abuse 305.03 Active 306705910 Problem Type 1 diabetes mellitus with foot ulcer E10.621 Active 427126561 Problem Generalized anxiety disorder F41.1 Active 36516954 Problem Type 1 diabetes mellitus with diabetic neuropathy E10.40 Active 215884650 Problem Microalbuminuria R80.9 Active 597911740 Problem Substance abuse F19.10 Active 16543011 Problem Diabetes mellitus E11.9 Active 07732622 Problem Hep C w/o coma, chronic B18.2 Active 633336327 Problem 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 Active 22451444 Problem 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 Active 633964109 Problem Anxiety F41.9 Active 47784016 ALLERGIES Substance Reaction Event Type Date Status NovoLog Flexpen hypoglycemia Drug Allergy Feb, Active gluten bloating Non Drug Allergy Feb, Active SOCIAL HISTORY Never Assessed PLAN OF CARE Activity Details Follow Up prn Reason: VITAL SIGNS Height 66 in 2017-02-01 Weight 148.6 lbs 2017-02-01 Temperature 98.4 degrees Fahrenheit 2017-02-01 Heart Rate 84 bpm 2017-02-01 Respiratory Rate 20 2017-02-01 BMI 23.98 kg/m2 2017-02-01 Blood pressure systolic 120 mmHg 2017-02-01 Blood pressure diastolic 80 mmHg 2017-02-01 MEDICATIONS Medication Instructions Dosage Frequency Start Date End Date Duration Status BusPIRone HCl 15 mg Orally 3 times a day one tablet 8h 30 days Active Hydrocortisone 2.5 % Externally Twice a day 1 application to affected area 12h January, Feb, 30 day(s) Active Vistaril 50 mg Orally 3 times a day capsule as needed 8h January, 10 days Active Vancomycin HCl in Dextrose 1 GM/200ML as directed January, Active Test strips 1 tablet Accucheck Smartview- DX- E10.621 6 times per day test blood sugar Apr, Active Humalog 100 UNIT/ML ICD10- E10.40 per pump 50 units daily thru insulin pump Active Ibuprofen 800 MG Orally Three times a day 1 tablet with food or milk 8h January, Feb, 30 day(s) Active Trazodone HCl 100 mg Orally Once a day 1 tablet at bedtime 24h January, 30 day(s) Active Paxil 20 mg Orally Once a day 1 tablet in the morning 24h January, 30 day(s) Active Permethrin 5 % Externally Once today and repeat in 7 days 1 application head to toe at bedtime, wash off thoroughly in the am, repeat in 7 days Feb, Feb, 7 day(s) Active Lancets Box as directed 6h Apr, Active Gabapentin 800 MG Orally 4 times a day 1 tablet 6h January, 30 day( s) Active Cetirizine HCl 10 MG Orally Once a day 1 tablet 24h Feb, 30 day (s) Active RESULTS No Results PROCEDURES No Known [...]
--- OUTSIDE RECORDS SUMMARY | 2017-08-19 11:02 | XMS REPORT ---
Author Author DAVE GRAFF Organization [facility] Address [address] [place] [address] Care Team Providers Care Salesperson Shoes Name Role Phone HECTOR GRAFFNETTE Unavailable PROBLEMS Type Condition ICD9-CM Code [id number] Code Onset Dates Condition Status SNOMED Code Problem Endocrine disorder, unspecified E34.9 Active 554737335 Problem Primary insomnia F51.01 Active 6484391 Problem Gastroesophageal reflux disease without esophagitis K21.9 Active 747591882 Problem Right upper quadrant pain R10.11 Active 440672935 Problem Toe amputation status, right Z89.421 Active 928516004 Problem Cannabis dependence F12.20 Active 76857139 Problem History of alcohol dependence F10.21 Active 130008760 Problem Methamphetamine use disorder, severe, 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 Active Problem History of alcohol abuse 305.03 Active 724455470 Problem Type 1 diabetes mellitus with foot ulcer E10.621 Active 101910478 Problem Generalized anxiety disorder F41.1 Active 37418455 Problem Type 1 diabetes mellitus with diabetic neuropathy E10.40 Active 610688361 Problem Microalbuminuria R80.9 Active 736433870 Problem Substance abuse F19.10 Active 71976007 Problem Diabetes mellitus E11.9 Active 66733219 Problem Hep C w/o coma, chronic B18.2 Active 518220941 Problem 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
--- OUTSIDE RECORDS SUMMARY | 2017-08-19 11:02 | XMS REPORT ---
Author Author RITA Patel Organization [facility] Address [address] [place] [address] Care Team Providers Care German Professor Name Role Phone ireneRITA HENLEY Unavailable PROBLEMS Type Condition ICD9-CM Code REI21-RL Code Onset Dates Condition Status SNOMED Code Problem Endocrine disorder, unspecified E34.9 Active 980532541 Problem Primary insomnia F51.01 Active 2750748 Problem Gastroesophageal reflux disease without esophagitis K21.9 Active 358470454 Problem Right upper quadrant pain R10.11 Active 998544826 Problem Toe amputation status, right Z89.421 Active 255443705 Problem Cannabis dependence F12.20 Active 60347308 Problem History of alcohol dependence F10.21 Active 040161900 Problem Methamphetamine use disorder, severe, 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 Active Problem History of alcohol abuse 305.03 Active 031292286 Problem Type 1 diabetes mellitus with foot ulcer E10.621 Active 321376792 Problem Generalized anxiety disorder F41.1 Active 99899129 Problem Type 1 diabetes mellitus with diabetic neuropathy E10.40 Active 751213798 Problem Microalbuminuria R80.9 Active 916213901 Problem Substance abuse F19.10 Active 92352082 Problem Diabetes mellitus E11.9 Active 28769676 Problem Hep C w/o coma, chronic B18.2 Active 651222808 Problem 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 Active 58530415 Problem 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
--- OUTSIDE RECORDS SUMMARY | 2017-08-19 11:02 | XMS REPORT ---
Author Author DAVE GRAFF Organization [facility] Address [address] [place] [address] Care Team Providers Care Bioinformatics Software Engineer Name Role Phone HECTOR GRAFFNETTE Unavailable PROBLEMS Type Condition ICD9-CM Code PCC41-UT Code Onset Dates Condition Status SNOMED Code Problem Endocrine disorder, unspecified E34.9 Active 510931134 Problem Primary insomnia F51.01 Active 1353095 Problem Gastroesophageal reflux disease without esophagitis K21.9 Active 843434749 Problem Right upper quadrant pain R10.11 Active 703572534 Problem Toe amputation status, right Z89.421 Active 011559715 Problem Cannabis dependence F12.20 Active 15792057 Problem History of alcohol dependence F10.21 Active 547222517 Problem Methamphetamine use disorder, severe, 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 Active Problem History of alcohol abuse 305.03 Active 053236374 Problem Type 1 diabetes mellitus with foot ulcer E10.621 Active 478372050 Problem Generalized anxiety disorder F41.1 Active 77153168 Problem Type 1 diabetes mellitus with diabetic neuropathy E10.40 Active 460810852 Problem Microalbuminuria R80.9 Active 751964753 Problem Substance abuse F19.10 Active 97193150 Problem Diabetes mellitus E11.9 Active 81091583 Problem Hep C w/o coma, chronic B18.2 Active 910342427 Problem 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
--- OUTSIDE RECORDS SUMMARY | 2017-08-19 11:02 | XMS REPORT ---
Author Author JOCELINE WEST Organization [facility] Address [address] [place] [address] Care Team Providers Care Cigar Packing Examiner Name Role Phone JOCELINE WEST Unavailable PROBLEMS Type Condition ICD9-CM Code TKK00-NS Code Onset Dates Condition Status SNOMED Code Problem Endocrine disorder, unspecified E34.9 Active 663786119 Problem Primary insomnia F51.01 Active 1882291 Problem Gastroesophageal reflux disease without esophagitis K21.9 Active 566974899 Problem Right upper quadrant pain R10.11 Active 264338243 Problem Toe amputation status, right Z89.421 Active 389441783 Problem Cannabis dependence F12.20 Active 62102315 Problem History of alcohol dependence F10.21 Active 324903665 Problem Methamphetamine use disorder, severe, 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 Active Problem History of alcohol abuse 305.03 Active 812115084 Problem Type 1 diabetes mellitus with foot ulcer E10.621 Active 059306723 Problem Generalized anxiety disorder F41.1 Active 34594456 Problem Type 1 diabetes mellitus with diabetic neuropathy E10.40 Active 927582025 Problem Microalbuminuria R80.9 Active 987680862 Problem Substance abuse F19.10 Active 50792625 Problem Diabetes mellitus E11.9 Active 56061776 Problem Hep C w/o coma, chronic B18.2 Active 610588657 Problem 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
--- OUTSIDE RECORDS SUMMARY | 2017-08-19 11:02 | XMS REPORT ---
Author Author ANSON Burnett Organization [facility] Address [address] [place] [address] Care Team Providers Care Director Of Search Engine Marketing Name Role Phone ANSON Burnett Unavailable PROBLEMS Type Condition ICD9-CM Code ZKZ29-FR Code Onset Dates Condition Status SNOMED Code Problem Endocrine disorder, unspecified E34.9 Active 385962898 Problem Primary insomnia F51.01 Active 7509519 Problem Gastroesophageal reflux disease without esophagitis K21.9 Active 158016743 Problem Right upper quadrant pain R10.11 Active 260217613 Problem Toe amputation status, right Z89.421 Active 279749364 Problem Cannabis dependence F12.20 Active 70517831 Problem History of alcohol dependence F10.21 Active 304894733 Problem Methamphetamine use disorder, severe, 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 Active Problem History of alcohol abuse 305.03 Active 343845568 Problem Type 1 diabetes mellitus with foot ulcer E10.621 Active 818029480 Problem Generalized anxiety disorder F41.1 Active 32461705 Problem Type 1 diabetes mellitus with diabetic neuropathy E10.40 Active 015395745 Problem Microalbuminuria R80.9 Active 851560756 Problem Substance abuse F19.10 Active 80763733 Problem Diabetes mellitus E11.9 Active 58063381 Problem Hep C w/o coma, chronic B18.2 Active 177733492 Problem 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
--- OUTSIDE RECORDS SUMMARY | 2017-08-19 11:02 | XMS REPORT ---
Author Author DAVE GRAFF Organization [facility] Address [address] [place] [address] Care Team Providers Care Gas Operations Analyst Name Role Phone HECTOR GRAFFNETTE Unavailable PROBLEMS Type Condition ICD9-CM Code CRG12-AA Code Onset Dates Condition Status SNOMED Code Problem Endocrine disorder, unspecified E34.9 Active 296751621 Problem Primary insomnia F51.01 Active 0384715 Problem Gastroesophageal reflux disease without esophagitis K21.9 Active 745996186 Problem Right upper quadrant pain R10.11 Active 474575656 Problem Toe amputation status, right Z89.421 Active 183165064 Problem Cannabis dependence F12.20 Active 81473576 Problem History of alcohol dependence F10.21 Active 509793932 Problem Methamphetamine use disorder, severe, 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 Active Problem History of alcohol abuse 305.03 Active 004812304 Problem Type 1 diabetes mellitus with foot ulcer E10.621 Active 250120998 Problem Generalized anxiety disorder F41.1 Active 37811337 Problem Type 1 diabetes mellitus with diabetic neuropathy E10.40 Active 254223054 Problem Microalbuminuria R80.9 Active 668359090 Problem Substance abuse F19.10 Active 63012171 Problem Diabetes mellitus E11.9 Active 24928098 Problem Hep C w/o coma, chronic B18.2 Active 355393116 Problem 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
--- OUTSIDE RECORDS SUMMARY | 2017-08-19 11:03 | XMS REPORT ---
Author Author DAVE GRAFF [facility] Address [address] [place] [address] Care Team Providers Care Cps Team Lead Name Role Phone HECTOR GRAFFNETTE Unavailable PROBLEMS Type Condition ICD9-CM Code UGM02-SD Code Onset Dates Condition Status SNOMED Code Problem Endocrine disorder, unspecified E34.9 Active 080976087 Problem Primary insomnia F51.01 Active 9652956 Problem Gastroesophageal reflux disease without esophagitis K21.9 Active 564650698 Problem Right upper quadrant pain R10.11 Active 639336274 Problem Toe amputation status, right Z89.421 Active 277345282 Problem Cannabis dependence F12.20 Active 18422962 Problem History of alcohol dependence F10.21 Active 503011590 Problem Methamphetamine use disorder, severe, 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 Active Problem History of alcohol abuse 305.03 Active 418765514 Problem Type 1 diabetes mellitus with foot ulcer E10.621 Active 452168803 Problem Generalized anxiety disorder F41.1 Active 43172470 Problem Type 1 diabetes mellitus with diabetic neuropathy E10.40 Active 933720271 Problem Microalbuminuria R80.9 Active 744366710 Problem Substance abuse F19.10 Active 67876535 Problem Diabetes mellitus E11.9 Active 51245653 Problem Hep C w/o coma, chronic B18.2 Active 362083635 Problem 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
--- OUTSIDE RECORDS SUMMARY | 2017-08-19 11:03 | XMS REPORT ---
Author Author DAVE GRAFF [facility] Address [address] [place] [address] Care Team Providers Care Clinical Law Professor Name Role Phone HECTOR GRAFFNETTE Unavailable PROBLEMS Type Condition ICD9-CM Code [id number] Code Onset Dates Condition Status SNOMED Code Problem Endocrine disorder, unspecified E34.9 Active 304836889 Problem Primary insomnia F51.01 Active 0153428 Problem Gastroesophageal reflux disease without esophagitis K21.9 Active 927397444 Problem Right upper quadrant pain R10.11 Active 593432949 Problem Toe amputation status, right Z89.421 Active 112279313 Problem Cannabis dependence F12.20 Active 16732905 Problem History of alcohol dependence F10.21 Active 893804732 Problem Methamphetamine use disorder, severe, 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 Active Problem History of alcohol abuse 305.03 Active 493209620 Problem Type 1 diabetes mellitus with foot ulcer E10.621 Active 301133202 Problem Generalized anxiety disorder F41.1 Active 76349129 Problem Type 1 diabetes mellitus with diabetic neuropathy E10.40 Active 126360790 Problem Microalbuminuria R80.9 Active 290832214 Problem Substance abuse F19.10 Active 87450329 Problem Diabetes mellitus E11.9 Active 57115572 Problem Hep C w/o coma, chronic B18.2 Active 917692382 Problem 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
[2017-08-19] MEDS ORDERED: NS IV 1000 ML 1,000 ML IV SCH (11:15)
--- NOTE | 2017-08-19 11:21 | ED Abdominal Pain ---
General Stated Complaint: BLOOD SUGAR ISSUES Source of Information: Patient, EMS History of Present Illness Time Seen By Provider: 11:17 Initial Comments This 32-year-old white female presents after having been found essentially unresponsive by the paramedics. The patient states that she's been using IV meth. She is an insulin-dependent diabetic. The patient was found to be hypothermic upon arrival in emergency department. Allergies and Home Medications Allergies Coded Allergies: No Known Drug Allergies (Unverified , 10/22/16) Home Medications Buspirone HCl 15 Mg Tablet, 30 MG PO TID, (Reported) TAKES 2 (15MG) TABLETS Gabapentin 800 Mg Tablet, 800 MG PO QID, (Reported) Ibuprofen 800 Mg Tablet, (Reported) Insulin Degludec 100 Unit/1 Ml Insuln.pen, 30 UNITS SQ HS, (Reported) Insulin Lispro 100 Unit/1 Ml Insuln.pen, 10 UNITS SQ SLIDING/SCALE, (Reported) Trazodone HCl 100 Mg Tablet, (Reported) Review of Systems Constitutional: No diaphoresis, No fever EENTM: No Symptoms Reported Respiratory: Denies Cough Gastrointestinal: Denies Abdominal Pain Genitourinary: No Symptoms Reported Musculoskeletal: no symptoms reported Skin: change in color (patient is pale), No rash Psychiatric/Neurological: Other (IV drug use) Hematologic/Lymphatic: No Symptoms Reported Past Pkiggmq-Ssxogx-Bgqtvr Hx Patient Social History Drug of Choice: PAST HX Type Used: Cigarettes 2nd Hand Smoke Exposure: No Recent Hopitalizations: No Immunizations Up To Date Tetanus Booster (TDap): Unknown PED Vaccines UTD: No Date of Influenza Vaccine: Jul 03, 2016 Seasonal Allergies Seasonal Allergies: No Surgeries History of Surgeries: Yes (OPEN HEART SX AN ) Surgeries: Cardiac, Section, Orthopedic Respiratory History of Respiratory Disorde: No (TOBACCOISM) Cardiovascular History of Cardiac Disorders: Yes (CARDIAC SURGERY AN INFANT) Neurological History of Neurological Disord: Yes Neurological Disorders: Neuropathy, Seizure Disorder Genitourinary History of Genitourinary Disor: No Gastrointestinal History of Gastrointestinal Di: Yes (CELIAC DISEASE) Musculoskeletal History of Musculoskeletal Dis: Yes (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) Endocrine History of Endocrine Disorders: Yes (PT HAS INSULIN PUMP) Endocrine Disorders: Diabetes, Insulin dep HEENT History of HEENT Disorders: No Loss of Vision: Denies Hearing Impairment: Denies Cancer History of Cancer: No Psychosocial History of Psychiatric Problem: Yes Behavioral Health Disorders: Anxiety Integumentary History of Skin or Integumenta: No Blood Transfusions History of Blood Disorders: Yes (HEP C+) Reviewed Nursing Assessment Reviewed/Agree w Nursing PMH: Yes Family Medical History Significant Family History: No Pertinent Family Hx Family Medial History: Physical Exam Vital Signs VS - Last 72 Hours, by Label 08/19/17 10:52 Temp 92.9 Pulse 106 Resp 18 B/P (MAP) 148/94 (112) Pulse Ox 100 O2 Delivery Room Air Capillary Refill : General Appearance: mild distress, cachetic HEENT: normal ENT inspection Neck: normal inspection Respiratory: lungs clear Cardiovascular: normal peripheral pulses, regular rate, rhythm Gastrointestinal: normal bowel sounds, non tender, soft Extremities: normal range of motion, non-tender, normal inspection Back: normal inspection Neurologic/Psychiatric: no motor/sensory deficits, oriented x 3 Skin: normal color, warm/dry Focused Exam Evaluation Lactate Level Laboratory Tests 08/19/17 11:06: Lactic Acid Level 0.79 Lactic Acid Level Laboratory Tests Test 08/19/17 11:06 Lactic Acid Level 0.79 MMOL/L (0.50-2.00) Progress/Results/Core Measures Results/Orders Lab Results Laboratory Tests Test 08/19/17 10:55 08/19/17 11:06 08/19/17 11:35 Range/Units Glucometer 132 H 268 H 70-110 MG/DL White Blood Count 6.4 4.3-11.0 10^3/uL Red Blood Count 4.73 4.35-5.85 10^6/uL Hemoglobin 11.9 11.5-16.0 G/DL Hematocrit 37 35-52 % Mean Corpuscular Volume 78 L 80-99 FL Mean Corpuscular Hemoglobin 25 25-34 PG Mean Corpuscular Hemoglobin Concent 32 32-36 G/DL Red Cell Distribution Width 15.7 H 10.0-14.5 % Platelet Count 277 130-400 10^3/uL Mean Platelet Volume 11.7 H 7.4-10.4 FL Neutrophils (%) (Auto) 68 42-75 % Lymphocytes (%) (Auto) 22 12-44 % Monocytes (%) (Auto) 8 0-12 % Eosinophils (%) (Auto) 1 0-10 % Basophils (%) (Auto) 1 0-10 % Neutrophils # (Auto) 4.4 1.8-7.8 X 10^3 Lymphocytes # (Auto) 1.4 1.0-4.0 X 10^3 Monocytes # (Auto) 0.5 0.0-1.0 X 10^3 Eosinophils # (Auto) 0.0 0.0-0.3 10^3/uL Basophils # (Auto) 0.1 0.0-0.1 10^3/uL Sodium Level 137 135-145 MMOL/L Potassium Level 4.3 3.6-5.0 MMOL/L Chloride Level 106 98-107 MMOL/L Carbon Dioxide Level 18 L 21-32 MMOL/L Anion Gap 13 5-14 MMOL/L Blood Urea Nitrogen 30 H 7-18 MG/DL Creatinine 1.86 H 0.60-1.30 MG/DL Estimat Glomerular Filtration Rate 31 BUN/Creatinine Ratio 16 Glucose Level 139 H 70-105 MG/DL Hemoglobin A1c 7.5 H 4.5-6.2 % Lactic Acid Level 0.79 0.50-2.00 MMOL/L Calcium Level 9.9 8.5-10.1 MG/DL Total Bilirubin 0.2 0.1-1.0 MG/DL Aspartate Amino Transf (AST/SGOT) 61 H 5-34 U/L Alanine Aminotransferase (ALT/SGPT) 46 0-55 U/L Alkaline Phosphatase 158 H 40-136 U/L Total Protein 8.3 H 6.4-8.2 GM/DL Albumin 4.2 3.2-4.5 GM/DL My Orders Orders - MATTHEW MELO MD Cbc With Automated Diff (08/19/17 11:11) Hemoglobin A1c (08/19/17 11:11) Blood Culture (08/19/17 11:11) Lactic Acid Analyzer (08/19/17 11:11) Comprehensive Metabolic Panel (08/19/17 11:11) Ua Culture If Indicated (08/19/17 11:11) Ns Iv 1000 Ml (Sodium Chloride 0.9%) (08/19/17 11:15) Vital Signs/I&O Vital Sign - Last 12Hours 08/19/17 10:52 Temp 92.9 Pulse 106 Resp 18 B/P (MAP) 148/94 (112) Pulse Ox 100 O2 Delivery Room Air Progress Note : Time: 12:07 Progress Note The patient was significantly clinically dehydrated and the nursing staff was finally able to establish a left external jugular and the patient. She was given 2 L of normal saline. Patient's glucose was approximately 130 and no supplemental glucose was given. Next The patient's rectal temp was approximated 92. A bear hugger was employed to treat the patient. Noon. The patient stated that she wanted to go home and go to work. As the patient's rectal temp was only 94 and the patient had presented unresponsive to the emergency department it was felt that the patient's capacity was at best questionable. Patient agreed to stay in the hospital after discussion. Orders been written. Patient was admitted . Departure Communication (Admissions) Time/Spoke to Admitting Phy: 11:[address] Lopez. Impression Impression: Primary Impression: Hypothermia Qualified Codes: T68.XXXA - Hypothermia, initial encounter Additional Impressions: Insulin dependent diabetes mellitus Drug abuse by member of household Disposition: ADMITTED INPATIENT Condition: Improved Admissions Decision to Admit Reason: Admit from ER (General) Decision to Admit/Date: Aug 19, 2017 Time/Decision to Admit Time: 12:52 Departure-Patient Inst. Referrals: KASANDRA SANCHEZ DO (PCP) Primary Care Physician DIOMEDES SMITH (Family) Primary Care Physician MATTHEW MELO MD Aug 19, 2017 11:21
[2017-08-19 11:23] LABS: BASOPHILS # (AUTO) 0.1 10^3/uL (0.0-0.1); BASOPHILS % (AUTO) 1 % (0-10); EOSINOPHILS % (AUTO) 1 % (0-10); LYMPHOCYTES # (AUTO) 1.4 X 10^3 (1.0-4.0); LYMPHOCYTES % (AUTO) 22 % (12-44); MEAN CORPUSCULAR HEMOGLOBIN 25 PG (25-34); MEAN CORPUSCULAR HGB CONC 32 G/DL (32-36); MEAN CORPUSCULAR VOLUME 78 FL (80-99); MEAN PLATELET VOLUME 11.7 FL (7.4-10.4); MONOCYTES # (AUTO) 0.5 X 10^3 (0.0-1.0); MONOCYTES % (AUTO) 8 % (0-12); NEUTROPHILS # (AUTO) 4.4 X 10^3 (1.8-7.8); NEUTROPHILS % (AUTO) 68 % (42-75); PLATELET COUNT 277 10^3/uL (130-400); RED BLOOD COUNT 4.73 10^6/uL (4.35-5.85); RED CELL DISTRIBUTION WIDTH 15.7 % (10.0-14.5); WHITE BLOOD COUNT 6.4 10^3/uL (4.3-11.0)
[2017-08-19 11:35] LABS: ALBUMIN 4.2 GM/DL (3.2-4.5); BILIRUBIN,TOTAL 0.2 MG/DL (0.1-1.0); CALCIUM 9.9 MG/DL (8.5-10.1); CREATININE SERUM 1.86 MG/DL (0.60-1.30); POTASSIUM 4.3 MMOL/L (3.6-5.0); TOTAL PROTEIN 8.3 GM/DL (6.4-8.2)
[2017-08-19 13:35] VITALS: BP 141/84
--- NOTE | 2017-08-19 13:35 | History & Physicial (CHS) ---
HPI History of Present Illness: 32-year-old female admitted through the emergency department after she was found unresponsive by paramedics. Patient had apparently been using IV meth by the emergency room report. She was also found to be with temperature of 93. She was immediately placed in francisco javier hugger. Patient is a known insulin- dependent diabetic. Apparently she was found with syrup all over her external body since she was trying to get sugar into her system. She recently had insulin dosage adjustment. She does report to me she is a very brittle diabetic Source: patient, EMS Exam Limitations: clinical condition Date seen by provider: Aug 19, 2017 Time Seen by Provider: 15:00 Attending Physician Wyatt Jin MD PCP Nikole Green DO Consult Date of Admission Aug 19, 2017 at 12:31 Home Medications Home Medications Reviewed patient Home Medication Reconciliation Form Allergies Coded Allergies: gluten (Verified Allergy, Unknown, 08/19/17) IYA-Qjqvzf-Rvryqj Hx Patient Social History Alcohol Use: Denies Use Recreational Drug Use: Yes (METH RECENTLY) Drug of Choice: PAST HX Smoking Status: Current Everyday Smoker Type Used: Cigarettes 2nd Hand Smoke Exposure: No Recent Foreign Travel: No Contact w/other who traveled: No Recent Hopitalizations: No Recent Infectious Disease Expo: No Immunizations Up To Date Tetanus Booster (TDap): Unknown Date of Influenza Vaccine: Jul 03, 2016 Past Medical History PMHx: DMI Anxiety/depression Substance abuse Hepatitis C Neuropathy Microalbuminuria PSurgHx: Right second toe distal amputation Heart surgery as a Family Medical History Significant Family History: No Pertinent Family Hx Family History: Review of Systems (CHC) Constitutional: see HPI Reviewed Test Results Reviewed Test Results Lab Laboratory Tests Test 08/19/17 10:55 08/19/17 11:06 08/19/17 11:35 Range/Units Glucometer 132 H 268 H 70-110 MG/DL White Blood Count 6.4 4.3-11.0 10^3/uL Red Blood Count 4.73 4.35-5.85 10^6/uL Hemoglobin 11.9 11.5-16.0 G/DL Hematocrit 37 35-52 % Mean Corpuscular Volume 78 L 80-99 FL Mean Corpuscular Hemoglobin 25 25-34 PG Mean Corpuscular Hemoglobin Concent 32 32-36 G/DL Red Cell Distribution Width 15.7 H 10.0-14.5 % Platelet Count 277 130-400 10^3/uL Mean Platelet Volume 11.7 H 7.4-10.4 FL Neutrophils (%) (Auto) 68 42-75 % Lymphocytes (%) (Auto) 22 12-44 % Monocytes (%) (Auto) 8 0-12 % Eosinophils (%) (Auto) 1 0-10 % Basophils (%) (Auto) 1 0-10 % Neutrophils # (Auto) 4.4 1.8-7.8 X 10^3 Lymphocytes # (Auto) 1.4 1.0-4.0 X 10^3 Monocytes # (Auto) 0.5 0.0-1.0 X 10^3 Eosinophils # (Auto) 0.0 0.0-0.3 10^3/uL Basophils # (Auto) 0.1 0.0-0.1 10^3/uL Sodium Level 137 135-145 MMOL/L Potassium Level 4.3 3.6-5.0 MMOL/L Chloride Level 106 98-107 MMOL/L Carbon Dioxide Level 18 L 21-32 MMOL/L Anion Gap 13 5-14 MMOL/L Blood Urea Nitrogen 30 H 7-18 MG/DL Creatinine 1.86 H 0.60-1.30 MG/DL Estimat Glomerular Filtration Rate 31 BUN/Creatinine Ratio 16 Glucose Level 139 H 70-105 MG/DL Hemoglobin A1c 7.5 H 4.5-6.2 % Lactic Acid Level 0.79 0.50-2.00 MMOL/L Calcium Level 9.9 8.5-10.1 MG/DL Total Bilirubin 0.2 0.1-1.0 MG/DL Aspartate Amino Transf (AST/SGOT) 61 H 5-34 U/L Alanine Aminotransferase (ALT/SGPT) 46 0-55 U/L Alkaline Phosphatase 158 H 40-136 U/L Total Protein 8.3 H 6.4-8.2 GM/DL Albumin 4.2 3.2-4.5 GM/DL Physical Exam-(CHC) Physical Exam Vital Signs VS - Last 72 Hours, by Label 08/19/17 08/19/17 08/19/17 08/19/17 10:52 13:11 13:35 13:45 Temp 92.9 99.0 98.7 Pulse 106 100 112 Resp 18 18 18 B/P (MAP) 148/94 (112) 141/84 (103) Pulse Ox 100 100 96 O2 Delivery Room Air Room Air Room Air 08/19/17 16:32 Temp 97.0 Pulse 104 Resp 20 B/P (MAP) 160/93 (115) Pulse Ox 97 O2 Delivery Room Air Capillary Refill : Less Than 3 Seconds General Appearance: no apparent distress, mild distress Eyes: Bilateral Eye Normal Inspection HEENT: normal ENT inspection Neck: non-tender, full range of motion, supple Respiratory: chest non-tender, lungs clear, normal breath sounds Cardiovascular: regular rate, rhythm Gastrointestinal: non tender, soft Rectal: deferred Extremities: normal inspection, no pedal edema Skin: normal color (On fourth medical floor) Assessment/Plan Assessment/Plan Admission Dx 1. Hypothermia--and apparently this was brought on by her having a hypoglycemic episode. 2. IV methamphetamine use 3 Insulin-dependent diabeticknown Plan 1. Hypothermia--and apparently this was brought on by her having a hypoglycemic episode. -Measures to warm her up (francisco javier hugger) have been implemented -iV fluid rehydration 2. IV methamphetamine use 3 Insulin-dependent diabeticknown -monitor glucose -Her insulin will be restarted carefully since she has a brittle diabetic. Already on the floor she has fluctuated from 700 value to under 100 within 2 hours. WYATT JIN MD Aug 19, 2017 13:35
[2017-08-19] MEDS ORDERED: LORazepam INJ 2 MG/ML (ATIVAN) VIAL IV PRN (13:45)
[2017-08-19] MEDS ORDERED: ACETAMINOPHEN 500 MG TAB (TYLENOL) PO PRN (13:45)
[2017-08-19] MEDS ORDERED: CATHETER FLUSH 10 ML SYR IV PRN (13:45)
[2017-08-19] MEDS ORDERED: ONDANSETRON 4 MG/2 ML (SDV) Z0FRAN IV PRN (13:45)
[2017-08-19] MEDS ORDERED: D5 NS 1000 ML IV SOLUTION 1,000 ML IV SCH (13:45)
[2017-08-19] MEDS ORDERED: INFLUENZA TRIvalent 2017-2018 0.5 ML/45 MCG SYR IM ONE (14:00)
[2017-08-19] MEDS: NS IV 1000 ML 1,000 ML IV SCH (14:54)
[2017-08-19] MEDS ORDERED: BUSP30TA2 PO (15:22)
[2017-08-19] MEDS ORDERED: HYDR50CA3 PO (15:22)
[2017-08-19] MEDS ORDERED: METF500T8 PO (15:22)
[2017-08-19] MEDS ORDERED: INSU200I4 SQ (15:22)
[2017-08-19] MEDS ORDERED: inSUlin ASPART (NovoLOG) 1 UNIT/0.01 ML (CHARGE PER UNIT) SC SCH (16:00)
[2017-08-19 16:32] VITALS: BP 160/93
[2017-08-19] MEDS ORDERED: NON-FORMULARY MEDICATION 1 EA EA (Gabapentin 800 MG) PO SCH (17:00)
[2017-08-19] MEDS ORDERED: IBUPROFEN 800 MG (MOTRIN) TAB PO PRN (17:00)
[2017-08-19] MEDS: GABAPENTIN 400 MG (NEURONTIN) CAP PO SCH ×2 (18:22→21:11)
[2017-08-19 18:32] LABS: BILIRUBIN,URINE NEGATIVE (NEGATIVE); KETONES,URINE NEGATIVE (NEGATIVE); LEUKOCYTE ESTERASE ,URINE NEGATIVE (NEGATIVE); NITRITE,URINE NEGATIVE (NEGATIVE); PH,URINE 5 (5-9); PROTEIN,URINE 3+ (NEGATIVE); UROBILINOGEN,URINE NORMAL (NORMAL)
[2017-08-19 20:00] VITALS: BP 137/84
[2017-08-19] MEDS: inSUlin ASPART (NovoLOG) 1 UNIT/0.01 ML (CHARGE PER UNIT) SC SCH (20:00)
[2017-08-19] MEDS ORDERED: NON-FORMULARY MEDICATION 1 EA EA (Buspirone HCl 30 MG) PO SCH (21:00)
[2017-08-19] MEDS ORDERED: traZODone 100 MG (DESYREL) TAB PO SCH (21:00)
[2017-08-19] MEDS: busPIRone 10 MG (BUSPAR) TAB PO SCH (21:11)
[2017-08-20] VITALS: BP 144/90
[2017-08-20] MEDS: inSUlin ASPART (NovoLOG) 1 UNIT/0.01 ML (CHARGE PER UNIT) SC SCH ×2 (00:36→04:08)
[2017-08-20 03:58] VITALS: BP 117/74
[2017-08-20] MEDS: NS IV 1000 ML 1,000 ML IV SCH (04:14)
[2017-08-20 05:29] LABS: BASOPHILS # (AUTO) 0.1 10^3/uL (0.0-0.1); BASOPHILS % (AUTO) 1 % (0-10); EOSINOPHILS # (AUTO) 0.3 10^3/uL (0.0-0.3); EOSINOPHILS % (AUTO) 4 % (0-10); LYMPHOCYTES # (AUTO) 2.2 X 10^3 (1.0-4.0); LYMPHOCYTES % (AUTO) 33 % (12-44); MEAN CORPUSCULAR HEMOGLOBIN 25 PG (25-34); MEAN CORPUSCULAR HGB CONC 32 G/DL (32-36); MEAN CORPUSCULAR VOLUME 78 FL (80-99); MEAN PLATELET VOLUME 12.2 FL (7.4-10.4); MONOCYTES # (AUTO) 0.7 X 10^3 (0.0-1.0); MONOCYTES % (AUTO) 11 % (0-12); NEUTROPHILS # (AUTO) 3.3 X 10^3 (1.8-7.8); NEUTROPHILS % (AUTO) 51 % (42-75); PLATELET COUNT 223 10^3/uL (130-400); RED BLOOD COUNT 3.39 10^6/uL (4.35-5.85); WHITE BLOOD COUNT 6.5 10^3/uL (4.3-11.0)
[2017-08-20 06:00] LABS: BILIRUBIN,TOTAL 0.2 MG/DL (0.1-1.0); CALCIUM 7.9 MG/DL (8.5-10.1); CREATININE SERUM 1.33 MG/DL (0.60-1.30); POTASSIUM 4.9 MMOL/L (3.6-5.0); TOTAL PROTEIN 5.7 GM/DL (6.4-8.2)
[2017-08-20 08:53] VITALS: BP 122/80
--- NOTE | 2017-08-20 09:33 | Discharge Summary-Hospitalist ---
Diagnosis/Chief Complaint Date of Admission Aug 19, 2017 at 12:31 Date of Discharge Discharge Date: Aug 20, 2017 Discharge Diagnosis Assessment per Dr Lopez admit doctor which on concur: 1. Hypothermia--and apparently this was brought on by her having a hypoglycemic episode. 2. IV methamphetamine use 3 Insulin-dependent diabeticknown but brittle DM noted Discharge Summary Discharge Physical Examination Allergies: Coded Allergies: gluten (Verified Allergy, Unknown, 08/19/17) Vitals & I&Os Vital Signs Date Time Temp Pulse Resp B/P (MAP) Pulse Ox O2 Delivery O2 Flow Rate FiO2 08/20/17 08:53 98.7 89 12 122/80 (94) 96 Room Air Hospital Course Hospital course: patient had an uneventful hospital course. Pt was admitted due to hypoglycemia and hypothermia of 93. Bear Hugger was initiated with good results. Brittle DM noted as this is a chronic status. Overall she was able to eat and drink and ambulate without difficulty and was in agreement for DC for close f/u this week as scheduled. Poor prognosis overall due to young age and Meth use and brittle DM status. Labs (last 24 hrs) Laboratory Tests 08/19/17 10:55: Glucometer 132H 08/19/17 11:06: White Blood Count 6.4, Red Blood Count 4.73, Hemoglobin 11.9, Hematocrit 37, Mean Corpuscular Volume 78L, Mean Corpuscular Hemoglobin 25, Mean Corpuscular Hemoglobin Concent 32, Red Cell Distribution Width 15.7H, Platelet Count 277, Mean Platelet Volume 11.7H, Neutrophils (%) (Auto) 68, Lymphocytes (%) (Auto) 22 , Monocytes (%) (Auto) 8, Eosinophils (%) (Auto) 1, Basophils (%) (Auto) 1, Neutrophils # (Auto) 4.4, Lymphocytes # (Auto) 1.4, Monocytes # (Auto) 0.5, Eosinophils # (Auto) 0.0, Basophils # (Auto) 0.1, Sodium Level 137, Potassium Level 4.3, Chloride Level 106, Carbon Dioxide Level 18L, Anion Gap 13, Blood Urea Nitrogen 30H, Creatinine 1.86H, Estimat Glomerular Filtration Rate 31, BUN/ Creatinine Ratio 16, Glucose Level 139H, Hemoglobin A1c 7.5H, Lactic Acid Level 0.79, Calcium Level 9.9, Total Bilirubin 0.2, Aspartate Amino Transf (AST/SGOT) 61H, Alanine Aminotransferase (ALT/SGPT) 46, Alkaline Phosphatase 158H, Total Protein 8.3H, Albumin 4.2 08/19/17 11:35: Glucometer 268H 08/19/17 13:44: Glucometer > 600*H 08/19/17 14:10: Glucose Level 675*H 08/19/17 16:19: Glucometer 76 08/19/17 18:03: Glucometer 82 08/19/17 18:25: Urine Color YELLOW, Urine Clarity CLEAR, Urine pH 5, Urine Specific [place] 1.025H, Urine Protein 3+H, Urine Glucose (UA) 4+H, Urine Ketones NEGATIVE, Urine Nitrite NEGATIVE, Urine Bilirubin NEGATIVE, Urine Urobilinogen NORMAL, Urine Leukocyte Esterase NEGATIVE, Urine RBC (Auto) 2+H, Urine RBC 2-5H, Urine WBC NONE, Urine Squamous Epithelial Cells 10-25H, Urine Crystals NONE, Urine Bacteria TRACE, Urine Casts NONE, Urine Mucus NEGATIVE, Urine Culture Indicated NO 08/19/17 19:49: Glucometer 122H 08/20/17 00:00: Glucometer 98 08/20/17 03:52: Glucometer 150H 08/20/17 05:03: White Blood Count 6.5, Red Blood Count 3.39L, Hemoglobin 8.4#L, Hematocrit 26L, Mean Corpuscular Volume 78L, Mean Corpuscular Hemoglobin 25, Mean Corpuscular Hemoglobin Concent 32, Red Cell Distribution Width 15.0H, Platelet Count 223, Mean Platelet Volume 12.2H, Neutrophils (%) (Auto) 51, Lymphocytes (%) (Auto) 33 , Monocytes (%) (Auto) 11, Eosinophils (%) (Auto) 4, Basophils (%) (Auto) 1, Neutrophils # (Auto) 3.3, Lymphocytes # (Auto) 2.2, Monocytes # (Auto) 0.7, Eosinophils # (Auto) 0.3, Basophils # (Auto) 0.1, Sodium Level 139, Potassium Level 4.9, Chloride Level 111H, Carbon Dioxide Level 21, Anion Gap 7, Blood Urea Nitrogen 32H, Creatinine 1.33H, Estimat Glomerular Filtration Rate 46, BUN/ Creatinine Ratio 24, Glucose Level 138H, Calcium Level 7.9L, Total Bilirubin 0.2 , Aspartate Amino Transf (AST/SGOT) 39H, Alanine Aminotransferase (ALT/SGPT) 33 , Alkaline Phosphatase 101, Total Protein 5.7L, Albumin 3.0L 08/20/17 08:35: Glucometer 72 Pending Labs Laboratory Tests 08/20/17 03:52: Glucometer 150 08/20/17 05:03: White Blood Count 6.5, Red Blood Count 3.39, Hemoglobin 8.4, Hematocrit 26, Mean Corpuscular Volume 78, Mean Corpuscular Hemoglobin 25, Mean Corpuscular Hemoglobin Concent 32, Red Cell Distribution Width 15.0, Platelet Count 223, Mean Platelet Volume 12.2, Neutrophils (%) (Auto) 51, Lymphocytes (%) (Auto) 33 , Monocytes (%) (Auto) 11, Eosinophils (%) (Auto) 4, Basophils (%) (Auto) 1, Neutrophils # (Auto) 3.3, Lymphocytes # (Auto) 2.2, Monocytes # (Auto) 0.7, Eosinophils # (Auto) 0.3, Basophils # (Auto) 0.1, Sodium Level 139, Potassium Level 4.9, Chloride Level 111, Carbon Dioxide Level 21, Anion Gap 7, Blood Urea Nitrogen 32, Creatinine 1.33, Estimat Glomerular Filtration Rate 46, BUN/ Creatinine Ratio 24, Glucose Level 138, Calcium Level 7.9, Total Bilirubin 0.2, Aspartate Amino Transf (AST/SGOT) 39, Alanine Aminotransferase (ALT/SGPT) 33, Alkaline Phosphatase 101, Total Protein 5.7, Albumin 3.0 08/20/17 08:35: Glucometer 72 Discharge Home Medications: Active Scripts Active Reported Hydroxyzine Pamoate 50 Mg Capsule 50 Mg PO TID PRN Tresiba Flextouch U-200 (Insulin Degludec) 200 Unit/1 Ml Insuln.pen 26 Units SQ HS Buspirone HCl 30 Mg Tablet 30 Mg PO TID Trazodone HCl 100 Mg Tablet 100 Mg PO HS Ibuprofen 800 Mg Tablet 800 Mg PO TID PRN Humalog Kwikpen (Insulin Lispro) 100 Unit/1 Ml Insuln.pen SQ SLIDING/SCALE Gabapentin 800 Mg Tablet 800 Mg PO QID Instructions to patient/family Please see electronic discharge instructions given to patient. Clinical Quality Measures DVT/VTE Risk/Contraindication: Risk Factor Score Per Nursin RFS Level Per Nursing on Admit: 1=Low/No VTE PPX JESSICA ALMEIDA DO Aug 20, 2017 09:33
[2017-08-20] MEDS: GABAPENTIN 400 MG (NEURONTIN) CAP PO SCH (09:50)
[2017-08-20] MEDS: busPIRone 10 MG (BUSPAR) TAB PO SCH (09:50)
== END 2017-08-20 09:28 | disposition home or self-care (01) ==
LOC: ER 10:52 → EDUNIT# 10:52 → 4TH 12:31 → UNDOADMOB 12:31 → 4TH 13:25 → UNDODISOB 08-20 10:00
PROVIDERS: ADMIT Family Medicine; ATTEND Family Medicine
DX: T68.XXXA Hypothermia, initial encounter (principal); F15.90 Other stimulant use, unspecified, uncomplicated; E10.40 Type 1 diabetes mellitus with diabetic neuropathy, unspecified; Z79.4 Long term (current) use of insulin; F17.210 Nicotine dependence, cigarettes, uncomplicated; F41.9 Anxiety disorder, unspecified; F32.9 Major depressive disorder, single episode, unspecified; B19.20 Unspecified viral hepatitis C without hepatic coma; G40.909 Epilepsy, unspecified, not intractable, without status epilepticus
CPT/HCPCS: 36415; 80053; 81000; 82947; 82962; 83036; 83605; 85025; 87040; 96360; G0378

== ENCOUNTER 2017-09-24 10:08 | Outpatient (CLI) | payer MEDICAID ==
[~2017-09-24] VITALS: Ht 170.2 cm; Wt 65.8 kg
[~2017-09-24 10:08] MED LIST changes: +ACHD5005 PO; -HYDR-3812 PO; +HYDR50CA3 PO; +INSU200I4 SQ; +METF500T8 PO
[2017-09-24] MEDS ORDERED: TRAM50TA2 PO (10:15)
== END 2017-09-24 10:23 ==
LOC: PREOP 10:08
PROVIDERS: ATTEND Podiatrist Foot & Ankle Surgery
DX: Z01.818 Encounter for other preprocedural examination (principal); M86.9 Osteomyelitis, unspecified

== ENCOUNTER 2018-05-09 10:47 | Emergency (ER) | payer MEDICAID ==
[~2018-05-09] VITALS: Ht 170.2 cm; Wt 73.0 kg
[~2018-05-09 10:47] MED LIST changes: +HYDR-34 PO; -HYDR-3816 PO; +NAPR-915 PO; -NAPR500T4 PO; +TRAM50TA2 PO; +TRAZ-190 PO; -TRAZ100T92 PO
[2018-05-09] MEDS ORDERED: HYDROcodone/APAP 5 MG/325 MG (LORTAB) TAB PO STA (11:40)
[2018-05-09 12:01] LABS: BASOPHILS # (AUTO) 0.1 10^3/uL (0.0-0.1); BASOPHILS % (AUTO) 1 % (0-10); EOSINOPHILS # (AUTO) 0.2 10^3/uL (0.0-0.3); EOSINOPHILS % (AUTO) 3 % (0-10); HEMATOCRIT 26 % (35-52); HEMOGLOBIN 8.3 G/DL (11.5-16.0); LYMPHOCYTES # (AUTO) 2.5 X 10^3 (1.0-4.0); LYMPHOCYTES % (AUTO) 30 % (12-44); MEAN CORPUSCULAR HEMOGLOBIN 23 PG (25-34); MEAN CORPUSCULAR HGB CONC 32 G/DL (32-36); MEAN CORPUSCULAR VOLUME 71 FL (80-99); MEAN PLATELET VOLUME 10.4 FL (7.4-10.4); MONOCYTES # (AUTO) 0.9 X 10^3 (0.0-1.0); MONOCYTES % (AUTO) 11 % (0-12); NEUTROPHILS # (AUTO) 4.6 X 10^3 (1.8-7.8); NEUTROPHILS % (AUTO) 56 % (42-75); PLATELET COUNT 308 10^3/uL (130-400); RED BLOOD COUNT 3.65 10^6/uL (4.35-5.85); RED CELL DISTRIBUTION WIDTH 21.6 % (10.0-14.5); WHITE BLOOD COUNT 8.2 10^3/uL (4.3-11.0)
[2018-05-09 12:01] LABS: BILIRUBIN,URINE NEGATIVE (NEGATIVE); CLARITY,URINE VERY CLOUDY; COLOR,URINE YELLOW; GLUCOSE, URINE (UA) NEGATIVE (NEGATIVE); KETONES,URINE NEGATIVE (NEGATIVE); LEUKOCYTE ESTERASE ,URINE 3+ (NEGATIVE); NITRITE,URINE POSITIVE (NEGATIVE); PH,URINE 5 (5-9); PROTEIN,URINE 4+ (NEGATIVE); UROBILINOGEN,URINE NORMAL (NORMAL)
--- NOTE | 2018-05-09 12:05 | ED General ---
General Chief Complaint: Lower Extremity Stated Complaint: RT FOOT PAIN Nursing Triage Note: PT HAS A WOUND ON HER RT GREAT TOE AND A WOUND ON HER LT LOWER LEG. STATES SHE IS ABOUT 7-8 WEEKS ALONG, HAS NOT SEEN A PRINCIPAL PRODUCT MANAGER BUT IS SCHEDULED TO. HER RT GREAT TOE WAS TO BE AMPUTATED 5-6 MONTHS AGO BUT SHE WAS SCARED TO GET IT DONE. PT IS DIABETIC. Nursing Sepsis Screen: No Definite Risk Source of Information: Patient Exam Limitations: No Limitations History of Present Illness Date Seen by Provider: May 09, 2018 Time Seen by Provider: 11:20 Initial Comments Here with report of wound to the left lower extremity in the mid tibia anterior region as well as right great toe wound and problems. Patient is diabetic and has history of poor sugar control although it is doing better recently. Also has history of drug abuse with methamphetamine but has stopped that since finding out that she was . She believes she is approximately 6 weeks along now. She has not used methamphetamine for several weeks. Complains of pain to the foot and leg. She has tried Naprosyn and that has not helped. She is worried about MRSA. She is in process of getting amputation of the right great toe with Dr. Parkinson. Timing/Duration: 1 Week, Getting Worse Severity: Moderate Modifying Factors: improves with Other (none) Associated Systoms: No Chest Pain, No Cough, No Diaphoresis, No Fever/Chills, No Nausea/Vomiting, No Shortness of Air, No Weakness Allergies and Home Medications Allergies Coded Allergies: gluten (Verified Allergy, Unknown, 09/24/17) Home Medications Buspirone HCl 30 Mg Tablet, 30 MG PO TID, (Reported) Gabapentin 800 Mg Tablet, 800 MG PO QID, (Reported) Hydroxyzine Pamoate 50 Mg Capsule, 50 MG PO TID PRN for ANXIETY, (Reported) Ibuprofen 800 Mg Tablet, 800 MG PO TID PRN for PAIN-MILD, (Reported) Insulin Degludec 200 Unit/1 Ml Insuln.pen, 20 UNITS SQ HS, (Reported) Insulin Lispro 100 Unit/1 Ml Insuln.pen, SQ SLIDING/SCALE, (Reported) Tramadol HCl 50 Mg Tablet, 50 MG PO PRN, (Reported) Trazodone HCl 100 Mg Tablet, 100 MG PO HS, (Reported) Patient Home Medication List Home Medication List Reviewed: Yes Review of Systems Review of Systems Constitutional: see HPI, chills; No fever EENTM: no symptoms reported Respiratory: no symptoms reported Cardiovascular: no symptoms reported; No chest pain, No edema Gastrointestinal: No abdominal pain, No nausea, No vomiting Genitourinary: no symptoms reported Musculoskeletal: joint pain, muscle pain Skin: change in color, lesions; No rash Psychiatric/Neurological: No Symptoms Reported All Other Systems Reviewed Negative Unless Noted: Yes Past Ybliqou-Iifazr-Qcwkka Hx Past Med/Social Hx: Reviewed Nursing Past Med/Soc Hx Patient Social History Alcohol Use: Denies Use Recreational Drug Use: Yes (HX OF IV DRUG ) Drug of Choice: PAST HX Smoking Status: Current Everyday Smoker Type Used: Cigarettes 2nd Hand Smoke Exposure: No Recent Foreign Travel: No Contact w/Someone Who Travel: No Recent Infectious Disease Expo: No Recent Hopitalizations: No Immunizations Up To Date Tetanus Booster (TDap): Unknown PED Vaccines UTD: No Date of Influenza Vaccine: Jul 03, 2016 Seasonal Allergies Seasonal Allergies: Yes Past Medical History Surgeries: Yes (OPEN HEART SX AN INFANT; TOE AMPUTATION, CS X2) Cardiac, Section, Orthopedic Respiratory: No (TOBACCOISM) Cardiac: Yes (CARDIAC SURGERY AN INFANT) Neurological: Yes (SEIZURES R/T DIABETES) Neuropathy, Seizure Disorder : Yes Last Menstrual Period: Mar 18, 2018 Hx : 13 Hx Para: 2 Hx Total # of Abortions (Sp): 10 Reproductive Disorders: No Female Reproductive Disorders: Denies Sexually Transmitted Disease: No HIV/AIDS: No Genitourinary: No Gastrointestinal: Yes (CELIAC DISEASE, HEP C) Hepatitis Musculoskeletal: No (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) Endocrine: Yes (PT HAS INSULIN PUMP) Diabetes, Insulin dep HEENT: No Loss of Vision: Bilateral Hearing Impairment: Denies Cancer: No Psychosocial: Yes Anxiety, Depression Integumentary: No Blood Disorders: Yes (HEP C+, ANEMIA) Adverse Reaction/Blood Tranf: No Family Medical History Reviewed Nursing Family Hx FH: COPD (chronic obstructive pulmonary disease) 19 FATHER FH: congestive heart failure 19 FATHER FH: liver cancer 19 MOTHER No Pertinent Family Hx Physical Exam Vital Signs Vital Signs - First Documented 05/09/18 11:17 Temp 97.2 Pulse 83 Resp 20 B/P (MAP) 168/103 (124) Pulse Ox 100 O2 Delivery Room Air Capillary Refill : Less Than 3 Seconds Height, Weight, BMI Height: 5'7.00" Weight: 161lbs. 0.0oz. 73.461188ja; 22.7 BMI Method:Estimated General Appearance: No Apparent Distress, WD/WN HEENT: PERRL/EOMI, Pharynx Normal Neck: Non Tender, Supple Respiratory: Lungs Clear, Normal Breath Sounds Cardiovascular: Regular Rate, Rhythm, No Murmur Gastrointestinal: Non Tender, Soft Back: Normal Inspection, No CVA Tenderness, No Vertebral Tenderness Extremity: Normal Range of Motion, Non Tender Neurologic/Psychiatric: Alert, Oriented x3 Focused Exam Lactate Level 05/09/18 11:50: Lactic Acid Level 0.59 Lactic Acid Level Laboratory Tests Test 05/09/18 11:50 Lactic Acid Level 0.59 MMOL/L (0.50-2.00) Progress/Results/Core Measures Suspected Sepsis Recent Fever Within 48 Hours: No Infection Criteria Present: Documented Infection New/Unexplained Altered Menta: No Sepsis Screen: No Definite Risk SIRS Temperature:97.2 Pulse: 83 Respiratory Rate: 20 Laboratory Tests 05/09/18 11:50: White Blood Count 8.2 Blood Pressure 168 /103 Mean: 124 05/09/18 11:50: Lactic Acid Level 0.59 Laboratory Tests 05/09/18 11:50: Creatinine 1.14, Platelet Count 308, Total Bilirubin 0.2 Results/Orders Lab Results Laboratory Tests Test 05/09/18 11:50 05/09/18 11:55 Range/Units White Blood Count 8.2 4.3-11.0 10^3/uL Red Blood Count 3.65 L 4.35-5.85 10^6/uL Hemoglobin 8.3 L 11.5-16.0 G/DL Hematocrit 26 L 35-52 % Mean Corpuscular Volume 71 L 80-99 FL Mean Corpuscular Hemoglobin 23 L 25-34 PG Mean Corpuscular Hemoglobin Concent 32 32-36 G/DL Red Cell Distribution Width 21.6 H 10.0-14.5 % Platelet Count 308 130-400 10^3/uL Mean Platelet Volume 10.4 7.4-10.4 FL Neutrophils (%) (Auto) 56 42-75 % Lymphocytes (%) (Auto) 30 12-44 % Monocytes (%) (Auto) 11 0-12 % Eosinophils (%) (Auto) 3 0-10 % Basophils (%) (Auto) 1 0-10 % Neutrophils # (Auto) 4.6 1.8-7.8 X 10^3 Lymphocytes # (Auto) 2.5 1.0-4.0 X 10^3 Monocytes # (Auto) 0.9 0.0-1.0 X 10^3 Eosinophils # (Auto) 0.2 0.0-0.3 10^3/uL Basophils # (Auto) 0.1 0.0-0.1 10^3/uL Sodium Level 131 L 135-145 MMOL/L Potassium Level 4.8 3.6-5.0 MMOL/L Chloride Level 108 H 98-107 MMOL/L Carbon Dioxide Level 19 L 21-32 MMOL/L Anion Gap 4 L 5-14 MMOL/L Blood Urea Nitrogen 28 H 7-18 MG/DL Creatinine 1.14 0.60-1.30 MG/DL Estimat Glomerular Filtration Rate 54 BUN/Creatinine Ratio 25 Glucose Level 148 H 70-105 MG/DL Lactic Acid Level 0.59 0.50-2.00 MMOL/L Calcium Level 8.5 8.5-10.1 MG/DL Corrected Calcium 9.4 8.5-10.1 MG/DL Total Bilirubin 0.2 0.1-1.0 MG/DL Aspartate Amino Transf (AST/SGOT) 23 5-34 U/L Alanine Aminotransferase (ALT/SGPT) 30 0-55 U/L Alkaline Phosphatase 134 40-136 U/L C-Reactive Protein High Sensitivity 0.30 0.00-0.50 MG/DL Total Protein 6.5 6.4-8.2 GM/DL Albumin 2.9 L 3.2-4.5 GM/DL Human Chorionic Gonadotropin, Quant [id number] H <5 MIU/ML Urine Color YELLOW Urine Clarity VERY CLOUDY H Urine pH 5 5-9 Urine Specific [place] 1.015 L 1.016-1.022 Urine Protein 4+ NEGATIVE Urine Glucose (UA) NEGATIVE NEGATIVE Urine Ketones NEGATIVE NEGATIVE Urine Nitrite POSITIVE H NEGATIVE Urine Bilirubin NEGATIVE NEGATIVE Urine Urobilinogen NORMAL NORMAL MG/DL Urine Leukocyte Esterase 3+ H NEGATIVE Urine RBC (Auto) 2+ H NEGATIVE Urine RBC NONE /HPF Urine WBC TNTC H /HPF Urine Squamous Epithelial Cells 10-25 H /HPF Urine Crystals NONE /LPF Urine Bacteria LARGE H /HPF Urine Casts NONE /LPF Urine Mucus NEGATIVE /LPF Urine Culture Indicated YES Urine Opiates Screen NEGATIVE NEGATIVE Urine Oxycodone Screen NEGATIVE NEGATIVE Urine Methadone Screen NEGATIVE NEGATIVE Urine Propoxyphene Screen NEGATIVE NEGATIVE Urine Barbiturates Screen NEGATIVE NEGATIVE Ur Tricyclic Antidepressants Screen NEGATIVE NEGATIVE Urine Phencyclidine Screen NEGATIVE NEGATIVE Urine Amphetamines Screen NEGATIVE NEGATIVE Urine Methamphetamines Screen NEGATIVE NEGATIVE Urine Benzodiazepines Screen NEGATIVE NEGATIVE Urine Cocaine Screen NEGATIVE NEGATIVE Urine Cannabinoids Screen POSITIVE H NEGATIVE My Orders Orders - JEIMY GUADALUPE MD Cbc With Automated Diff (05/09/18 11:40) Comprehensive Metabolic Panel (05/09/18 11:40) Hs C Reactive Protein (05/09/18 11:40) Ua Culture If Indicated (05/09/18 11:40) Blood Culture (05/09/18 11:40) Hydrocodone/Apap 5/325 Tablet (Lortab 5 (05/09/18 11:40) Lactic Acid Analyzer (05/09/18 11:40) Hcg,Quantitative (05/09/18 11:40) Wound Culture (05/09/18 11:40) Urine Culture (05/09/18 11:55) Cho 75g/M 0snack (21-2400 Caden) (05/09/18 Lunch) Us Ob Single Fetus<14 [id number] (05/09/18 12:46) Drug Screen Stat (Urine) (05/09/18 14:02) Acetaminophen Tablet/Caplet (Tylenol T (05/09/18 14:26) Clindamycin Capsule (Cleocin Capsule) (05/09/18 14:26) Cephalexin Capsule (Keflex Capsule) (05/09/18 14:26) Vital Signs/I&O 05/09/18 05/09/18 11:17 11:59 Temp 97.2 97.2 Pulse 83 Resp 20 B/P (MAP) 168/103 (124) Pulse Ox 100 O2 Delivery Room Air Capillary Refill : Less Than 3 Seconds Blood Pressure Mean: 124 Progress Note : Progress Note Seen and evaluated. IV, labs, blood cultures and lactic acid ordered. Wound culture of weeping wound to the left mid anterior tibial region. Hydrocodone 5/ 325 one tab by mouth given. Monitor patient. Ultrasound pelvis ordered. 1415 : I did discuss the case with Dr. Danielson, on-call for [facility]. We will continue gabapentin. Due to wounds and urinary tract infection, we will initiate cephalexin and clindamycin. First dose here with remainder to be continued outpatient. She has appointment at 1600 at [facility] for her diabetes management. She will go to that and discuss with them about her new . Ultrasound results noted. A copy of the chart will be sent to [facility]. All findings and results discussed with the patient). Discharged home with return precautions. Patient verbalize understanding instructions and agreement with plan. Diagnostic Imaging Diagonstic Imaging: Ultrasound Plain Films/CT/US/NM/MRI: pelvis Comments VIA [facility]. [place], [place] NAME: HUONG ARANGO [facility] REC#: [id number] PT STATUS: REG ER : 1985 PHYSICIAN: JEIMY GUADALUPE MD ADMIT DATE: 05/09/18/ER Draft Date of Exam:05/09/18 US OB SINGLE FETUS<14 [id number] PROCEDURE: US OB SINGLE FETUS <14 WKS. TECHNIQUE: Multiple real-time grayscale images were obtained over the gravid uterus in various projections. INDICATION: Diabetes with prior history of miscarriages. Study is performed to evaluate viability. There is an intrauterine gestational sac containing a pole. [place]-rump length measurement is 13 mm consistent with 7 weeks 4 days gestation. Cardiac activity is measured at 149 beats per minute. No perigestational hemorrhage is seen. Gestational sac shape is within normal limits. Adnexa are unremarkable. IMPRESSION: Single live IUP 7 weeks 4 days gestational age. Estimated date of confinement sonographically is 12/22/2018. Dictated on workstation # [id number] Dict: 05/09/18 1323 Trans: 05/09/18 1333 [facility] [id number] Interpreted by: DEMOND REAVES MD Electronically signed by: Departure Impression Primary Impression: Diabetic foot ulcer Qualified Codes: E10.621 - Type 1 diabetes mellitus with foot ulcer; L97.511 - Non-pressure chronic ulcer of other part of right foot limited to breakdown of skin Additional Impressions: Diabetic leg ulcer Intrauterine Urinary tract infection Qualified Codes: N30.00 - Acute cystitis without hematuria Disposition: HOME, SELF-CARE Condition: Stable Departure-Patient Inst. Decision time for Depature: 14:30 Referrals: KASANDRA SANCHEZ DO (PCP) Primary Care Physician DIOMEDES SMITH (Family) Primary Care Physician Patient Instructions: Diabetic Foot Ulcer (DC), - The Second Month, Urinary Tract Infection, Adult (DC) Add. Discharge Instructions: All discharge instructions reviewed with patient and/or family. Voiced understanding. Follow up with [facility] for scheduled appointment for clot to discuss your diabetes. Let them know that you were found to be and are 7 weeks and 4 days by ultrasound. A copy of the chart was sent the clinic for review. Return for worse pain, fever, vomiting, increasing redness or wounds or other concerns as needed. Scripts Clindamycin HCl (Clindamycin HCl) 300 Mg Capsule 300 MG PO QID, #28 CAP 0 Refills Prov: JEIMY GUADALUPE MD 05/09/18 Cephalexin (Cephalexin) 500 Mg Tablet 500 MG PO QID, #28 TAB 0 Refills Prov: JEIMY GUADALUPE MD 05/09/18 Copy Copies To 1: KASANDRA SANCHEZ TIMOTHY D MD May 09, 2018 12:05
[2018-05-09 12:11] LABS: BACTERIA,URINE LARGE /HPF; WBC,URINE TNTC /HPF
[2018-05-09 12:22] LABS: ALBUMIN 2.9 GM/DL (3.2-4.5); BILIRUBIN,TOTAL 0.2 MG/DL (0.1-1.0); CALCIUM 8.5 MG/DL (8.5-10.1); CREATININE SERUM 1.14 MG/DL (0.60-1.30); POTASSIUM 4.8 MMOL/L (3.6-5.0); TOTAL PROTEIN 6.5 GM/DL (6.4-8.2)
--- NOTE | 2018-05-09 13:33 | Diagnostic Imaging Report ---
PROCEDURE: US OB SINGLE FETUS <14 WKS. TECHNIQUE: Multiple real-time grayscale images were obtained over the gravid uterus in various projections. INDICATION: Diabetes with prior history of miscarriages. Study is performed to evaluate viability. There is an intrauterine gestational sac containing a pole. Arjay-rump length measurement is 13 mm consistent with 7 weeks 4 days gestation. Cardiac activity is measured at 149 beats per minute. No perigestational hemorrhage is seen. Gestational sac shape is within normal limits. Adnexa are unremarkable. IMPRESSION: Single live IUP 7 weeks 4 days gestational age. Estimated date of confinement sonographically is 12/22/2018. Dictated by: Dictated on workstation # [id number]
[2018-05-09 14:21] LABS: AMPHETAMINE SCREEN, URINE NEGATIVE (NEGATIVE); BARBITURATE SCREEN URINE NEGATIVE (NEGATIVE); BENZODIAZEPINES SCREEN URINE NEGATIVE (NEGATIVE); CANNABINOID SCREEN, URINE POSITIVE (NEGATIVE); COCAINE SCREEN URINE NEGATIVE (NEGATIVE); METHADONE STAT NEGATIVE (NEGATIVE); METHAMPHETAMINE SCREEN URINE S NEGATIVE (NEGATIVE); OPIATE SCREEN URINE NEGATIVE (NEGATIVE); OXYCODONE STAT NEGATIVE (NEGATIVE); PROPOXYPHENE STAT NEGATIVE (NEGATIVE); TRICYCLIC ANTIDEPRESSANTS SCRE NEGATIVE (NEGATIVE)
[2018-05-09] MEDS ORDERED: CEPHALEXIN 250 MG (KEFLEX) CAP PO STA (14:26)
[2018-05-09] MEDS ORDERED: ACETAMINOPHEN 325 MG TABLET PO STA (14:26)
[2018-05-09] MEDS ORDERED: CLINDAMYCIN 150 MG (CLEOCIN) CAP PO STA (14:26)
[2018-05-09] MEDS ORDERED: CEPH500T PO (14:34)
[2018-05-09] MEDS ORDERED: CLIN300C11 PO (14:34)
[2018-05-09 14:54] VITALS: BP 170/112
[2018-05-21] MEDS ORDERED: SULF1TAB35 PO (16:05)
[2018-05-21] MEDS ORDERED: CEFD300C3 PO (16:05)
== END 2018-05-09 14:54 | disposition home or self-care (01) ==
LOC: EDUNIT# 10:47 → ER 10:49
DX: O24.911 Unspecified diabetes mellitus in pregnancy, first trimester (principal); O99.711 Diseases of the skin and subcutaneous tissue complicating pregnancy, first trimester; E11.621 Type 2 diabetes mellitus with foot ulcer; L97.519 Non-pressure chronic ulcer of other part of right foot with unspecified severity; O23.41 Unspecified infection of urinary tract in pregnancy, first trimester; O99.351 Diseases of the nervous system complicating pregnancy, first trimester; G40.909 Epilepsy, unspecified, not intractable, without status epilepticus; O99.611 Diseases of the digestive system complicating pregnancy, first trimester; B19.20 Unspecified viral hepatitis C without hepatic coma; O99.341 Other mental disorders complicating pregnancy, first trimester; F41.9 Anxiety disorder, unspecified; F32.9 Major depressive disorder, single episode, unspecified; O99.011 Anemia complicating pregnancy, first trimester; D64.9 Anemia, unspecified; O99.331 Smoking (tobacco) complicating pregnancy, first trimester; F17.210 Nicotine dependence, cigarettes, uncomplicated; Z87.59 Personal history of other complications of pregnancy, childbirth and the puerperium; Z3A.01 Less than 8 weeks gestation of pregnancy; Z82.49 Family history of ischemic heart disease and other diseases of the circulatory system; Z80.0 Family history of malignant neoplasm of digestive organs; Z79.4 Long term (current) use of insulin
CPT/HCPCS: 36415; 76801; 80053; 80306; 81000; 83605; 84702; 85025; 86141; 87040; 87070; 87077; 87088; 87186; 87205

== ENCOUNTER 2018-05-17 08:47 | Emergency (ER) | payer MEDICAID ==
[~2018-05-17] VITALS: Ht 167.6 cm; Wt 72.6 kg
[~2018-05-17 08:47] MED LIST changes: +CEPH500T PO; +CLIN300C11 PO
[2018-05-17] MEDS ORDERED: DEXTROSE 50% 50 ML (IMS) SYR ONE (08:53)
[2018-05-17] MEDS ORDERED: D5 NS 1000 ML IV SOLUTION 1,000 ML IV SCH (09:00)
[2018-05-17] MEDS ORDERED: DEXTROSE 50% 50 ML (IMS) SYR IV ONE (09:00)
[2018-05-17] MEDS ORDERED: ONDANSETRON 4 MG/2 ML (SDV) Z0FRAN IVP ONE (09:00)
[2018-05-17] MEDS: ONDANSETRON 4 MG/2 ML (SDV) Z0FRAN ONE ×2 (09:02→09:26)
[2018-05-17 09:13] LABS: BILIRUBIN,URINE NEGATIVE (NEGATIVE); CLARITY,URINE CLEAR; COLOR,URINE YELLOW; GLUCOSE, URINE (UA) 1+ (NEGATIVE); KETONES,URINE NEGATIVE (NEGATIVE); LEUKOCYTE ESTERASE ,URINE NEGATIVE (NEGATIVE); NITRITE,URINE NEGATIVE (NEGATIVE); PH,URINE 7 (5-9); PROTEIN,URINE 4+ (NEGATIVE); UROBILINOGEN,URINE NORMAL (NORMAL)
[2018-05-17 09:28] LABS: AMPHETAMINE SCREEN, URINE NEGATIVE (NEGATIVE); BARBITURATE SCREEN URINE NEGATIVE (NEGATIVE); BENZODIAZEPINES SCREEN URINE NEGATIVE (NEGATIVE); CANNABINOID SCREEN, URINE POSITIVE (NEGATIVE); COCAINE SCREEN URINE NEGATIVE (NEGATIVE); METHADONE STAT NEGATIVE (NEGATIVE); METHAMPHETAMINE SCREEN URINE S NEGATIVE (NEGATIVE); OPIATE SCREEN URINE NEGATIVE (NEGATIVE); OXYCODONE STAT NEGATIVE (NEGATIVE); PROPOXYPHENE STAT NEGATIVE (NEGATIVE); TRICYCLIC ANTIDEPRESSANTS SCRE NEGATIVE (NEGATIVE)
[2018-05-17 09:29] LABS: BACTERIA,URINE NEGATIVE /HPF; RBC,URINE RARE /HPF; WBC,URINE RARE /HPF
[2018-05-17 09:30] LABS: BASOPHILS % (AUTO) 1 % (0-10); EOSINOPHILS # (AUTO) 0.2 10^3/uL (0.0-0.3); EOSINOPHILS % (AUTO) 3 % (0-10); HEMATOCRIT 27 % (35-52); HEMOGLOBIN 8.9 G/DL (11.5-16.0); LYMPHOCYTES % (AUTO) 28 % (12-44); MEAN CORPUSCULAR HEMOGLOBIN 24 PG (25-34); MEAN CORPUSCULAR HGB CONC 33 G/DL (32-36); MEAN CORPUSCULAR VOLUME 74 FL (80-99); MEAN PLATELET VOLUME 11.3 FL (7.4-10.4); MONOCYTES # (AUTO) 0.7 X 10^3 (0.0-1.0); MONOCYTES % (AUTO) 9 % (0-12); NEUTROPHILS # (AUTO) 4.4 X 10^3 (1.8-7.8); NEUTROPHILS % (AUTO) 60 % (42-75); PLATELET COUNT 242 10^3/uL (130-400); RED CELL DISTRIBUTION WIDTH 23.1 % (10.0-14.5); WHITE BLOOD COUNT 7.3 10^3/uL (4.3-11.0)
[2018-05-17 09:31] VITALS: BP 148/86
[2018-05-17 09:46] LABS: ALANINE AMINOTRANSFERASE 64 U/L (0-55); ALBUMIN 2.9 GM/DL (3.2-4.5); ALKALINE PHOSPHATASE 189 U/L (40-136); BILIRUBIN,TOTAL 0.1 MG/DL (0.1-1.0); BUN/CREATININE RATIO 22; CALCIUM 7.7 MG/DL (8.5-10.1); CARBON DIOXIDE 19 MMOL/L (21-32); CHLORIDE 110 MMOL/L (98-107); CREATININE SERUM 0.99 MG/DL (0.60-1.30); GFR ESTIMATED > 60; GLUCOSE 108 MG/DL (70-105); POTASSIUM 4.4 MMOL/L (3.6-5.0); SODIUM 136 MMOL/L (135-145)
[2018-05-17 10:38] VITALS: BP 157/86
--- NOTE | 2018-05-17 10:38 | Diagnostic Imaging Report ---
PROCEDURE: US OB SINGLE FETUS <14 WKS. TECHNIQUE: Multiple real-time grayscale images were obtained over the gravid uterus in various projections. INDICATION: Low blood sugar. FINDINGS: There is an intrauterine gestational sac containing a pole with crown-rump length measurement of 20 mm consistent with 8 weeks 5 days gestation. heart rate was recorded at 136 beats per minute. No barry-gestational sac hemorrhage is seen. Gestational sac shape is within normal limits. Adnexa are unremarkable. IMPRESSION: Single live IUP 8 weeks 5 days gestational age. The estimated date of confinement sonographically is 12/22/2018. Dictated by: Dictated on workstation # [id number]
[2018-05-17] MEDS ORDERED: GABA800T2 PO (11:02)
[2018-05-17] MEDS ORDERED: PREN1TAB86 PO (11:02)
[2018-05-17] MEDS ORDERED: FERR325T18 PO (11:02)
[2018-05-17] MEDS ORDERED: ASCO500T5 PO (11:02)
[2018-05-17] MEDS ORDERED: ACET-2267 PO (11:05)
--- NOTE | 2018-05-17 11:25 | ED General ---
General Chief Complaint: Glucose Problems Stated Complaint: LOW BLOOD SUGAR Nursing Triage Note: TO ED PER EMS MALE WITH PATIENT REPORTRS THAT HE GOT UP AT 730A AND SHE WAS NOT UP WENT TO CHECK ON HER FOUND HER COLD AND UNRESPONSIVE ON EMS ARRIVAL FOUND TO BE COLD UNRSPONSIVE WITH BS IN 20'S I AMP OF D50 GIVEN BY EMS BLOOD UP IN 200'S PATIENT ALERT ON ADMIT BUT COOL TO TOUCH Nursing Sepsis Screen: No Definite Risk Source of Information: EMS Exam Limitations: No Limitations History of Present Illness Date Seen by Provider: May 17, 2018 Time Seen by Provider: 08:50 Initial Comments The patient is a 33-year-old juvenile diabetic. 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 He went on to work. He called back later to check on her and got no response so he came home from work and found her to be unresponsive and cold to the touch. He called EMS. They found her blood sugar to be in the 20s. An IV was started and she was given an amp of D50 W. Her temperature was said to be 92 percent and she was very poorly responsive. She is known to have peripheral neuropathy. She has previously had the right second toe amputated and it was the wish of surgeons at the time to take her first toe as well. She declined that but has continued to have sores and swelling and pain and is to have this removed soon. She is a previous methamphetamine abuser. She states that she has not been using since she was known to be . The patient was thought to be about 3 months . With another amp of D50 W and IV fluids and a bear hugger she has warmed up and become more alert. Timing/Duration: 4-6 Hours Allergies and Home Medications Allergies Coded Allergies: gluten (Verified Allergy, Unknown, 09/24/17) Home Medications Acetaminophen 500 Mg Tablet, 500-1,000 MG PO Q6H PRN for PAIN-MILD, (Reported) Ascorbic Acid 500 Mg Tab.chew, 500 MG PO DAILY, (Reported) Ferrous Sulfate 325 Mg Tablet, 325 MG PO DAILY, (Reported) Gabapentin 800 Mg Tablet, 800 MG PO QID, (Reported) Hydroxyzine Pamoate 50 Mg Capsule, 50 MG PO TID PRN for ANXIETY, (Reported) LAST FILLED #90 18 Insulin Degludec 200 Unit/1 Ml Insuln.pen, 22 UNITS SQ HS, (Reported) LAST FILLED 2-2-18 Insulin Lispro 100 Unit/1 Ml Insuln.pen, SQ AC, (Reported) Vit W-Ca,Fe,FA(<1 mg) 1 Each Tablet, 1 TAB PO DAILY, (Reported) PLUS FOLIC ACID Trazodone HCl 100 Mg Tablet, 50 MG PO HS PRN for SLEEP, (Reported) LAST FILLED #30 2-2-18 Patient Home Medication List Home Medication List Reviewed: Yes Review of Systems Review of Systems Constitutional: other (the patient responded to verbal questioning by stating that she did not know what her medications were or what her dose of insulin was. She was unable to state when she had last eaten.) EENTM: no symptoms reported Respiratory: no symptoms reported Cardiovascular: no symptoms reported Gastrointestinal: no symptoms reported : Yes Skin: other (previous plantar sores on right foot) Psychiatric/Neurological: No Symptoms Reported Hematologic/Lymphatic: No Symptoms Reported Immunological/Allergic: no symptoms reported Past Bgxevkg-Cecotg-Fpvnmz Hx Patient Social History Alcohol Use: Denies Use Recreational Drug Use: No Drug of Choice: PAST HX meth Smoking Status: Current Everyday Smoker Type Used: Cigarettes 2nd Hand Smoke Exposure: No Recent Foreign Travel: No Contact w/Someone Who Travel: No Recent Infectious Disease Expo: No Recent Hopitalizations: No Immunizations Up To Date Tetanus Booster (TDap): Unknown PED Vaccines UTD: No Date of Influenza Vaccine: Jul 03, 2016 Seasonal Allergies Seasonal Allergies: Yes Past Medical History Surgeries: Yes (OPEN HEART SX AN INFANT; TOE AMPUTATION, CS X2) Cardiac, Section, Orthopedic Respiratory: No (TOBACCOISM) Cardiac: Yes (CARDIAC SURGERY AN ) Neurological: Yes (SEIZURES R/T DIABETES) Neuropathy, Seizure Disorder : Yes Last Menstrual Period: Feb 01, 2018 Hx : 13 Hx Para: 1 Reproductive Disorders: No Female Reproductive Disorders: Denies Sexually Transmitted Disease: No HIV/AIDS: No Genitourinary: No Gastrointestinal: Yes (CELIAC DISEASE, HEP C) Hepatitis Musculoskeletal: No (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) Endocrine: Yes (PT HAS INSULIN PUMP) Diabetes, Insulin dep HEENT: No Loss of Vision: Bilateral Hearing Impairment: Denies Cancer: No Psychosocial: Yes Anxiety, Depression Integumentary: No Blood Disorders: Yes (HEP C+, ANEMIA) Adverse Reaction/Blood Tranf: No Family Medical History FH: COPD (chronic obstructive pulmonary disease) 19 FATHER FH: congestive heart failure 19 FATHER FH: liver cancer 19 MOTHER No Pertinent Family Hx Physical Exam Vital Signs Vital Signs - First Documented 05/17/18 08:47 Temp 90.0 Pulse 82 Resp 18 B/P (MAP) 189/102 (131) Pulse Ox 100 O2 Delivery Room Air Capillary Refill : Less Than 3 Seconds Height, Weight, BMI Height: 5'6.00" Weight: 160lbs. 0.0oz. [id number]; 22.7 BMI Method:Stated General Appearance: Moderate Distress Eyes: Bilateral Eye Normal Inspection HEENT: Normal ENT Inspection Neck: Full Range of Motion, Normal Inspection, Non Tender, Supple, Carotid Bruit Respiratory: Chest Non Tender, Lungs Clear, Normal Breath Sounds, No Accessory Muscle Use, No Respiratory Distress Cardiovascular: Regular Rate, Rhythm, No Edema, No Gallop, No JVD, No Murmur, Normal Peripheral Pulses Extremity: Other Progress/Results/Core Measures Suspected Sepsis Recent Fever Within 48 Hours: No Infection Criteria Present: None New/Unexplained Altered Menta: No Sepsis Screen: No Definite Risk SIRS Temperature:94.5 Pulse: 91 Respiratory Rate: 16 Laboratory Tests 05/17/18 08:55: White Blood Count 7.3 Blood Pressure 157 /86 Mean: 109 Laboratory Tests 05/17/18 08:55: Creatinine 0.99, Platelet Count 242, Total Bilirubin 0.1 Results/Orders Lab Results Laboratory Tests Test 05/17/18 08:52 05/17/18 08:55 05/17/18 09:00 05/17/18 09:08 Range/Units Glucometer 123 H 96 70-110 MG/DL White Blood Count 7.3 4.3-11.0 10^3/uL Red Blood Count 3.70 L 4.35-5.85 10^6/uL Hemoglobin 8.9 L 11.5-16.0 G/DL Hematocrit 27 L 35-52 % Mean Corpuscular Volume 74 L 80-99 FL Mean Corpuscular Hemoglobin 24 L 25-34 PG Mean Corpuscular Hemoglobin Concent 33 32-36 G/DL Red Cell Distribution Width 23.1 H 10.0-14.5 % Platelet Count 242 130-400 10^3/uL Mean Platelet Volume 11.3 H 7.4-10.4 FL Neutrophils (%) (Auto) 60 42-75 % Lymphocytes (%) (Auto) 28 12-44 % Monocytes (%) (Auto) 9 0-12 % Eosinophils (%) (Auto) 3 0-10 % Basophils (%) (Auto) 1 0-10 % Neutrophils # (Auto) 4.4 1.8-7.8 X 10^3 Lymphocytes # (Auto) 2.0 1.0-4.0 X 10^3 Monocytes # (Auto) 0.7 0.0-1.0 X 10^3 Eosinophils # (Auto) 0.2 0.0-0.3 10^3/uL Basophils # (Auto) 0.0 0.0-0.1 10^3/uL Sodium Level 136 135-145 MMOL/L Potassium Level 4.4 3.6-5.0 MMOL/L Chloride Level 110 H 98-107 MMOL/L Carbon Dioxide Level 19 L 21-32 MMOL/L Anion Gap 7 5-14 MMOL/L Blood Urea Nitrogen 22 H 7-18 MG/DL Creatinine 0.99 0.60-1.30 MG/DL Estimat Glomerular Filtration Rate > 60 BUN/Creatinine Ratio 22 Glucose Level 108 H 70-105 MG/DL Calcium Level 7.7 L 8.5-10.1 MG/DL Corrected Calcium 8.6 8.5-10.1 MG/DL Total Bilirubin 0.1 0.1-1.0 MG/DL Aspartate Amino Transf (AST/SGOT) 73 H 5-34 U/L Alanine Aminotransferase (ALT/SGPT) 64 H 0-55 U/L Alkaline Phosphatase 189 H 40-136 U/L Total Protein 6.0 L 6.4-8.2 GM/DL Albumin 2.9 L 3.2-4.5 GM/DL Serum Alcohol < 10 <10 MG/DL Urine Color YELLOW Urine Clarity CLEAR Urine pH 7 5-9 Urine Specific [place] 1.010 L 1.016-1.022 Urine Protein 4+ NEGATIVE Urine Glucose (UA) 1+ H NEGATIVE Urine Ketones NEGATIVE NEGATIVE Urine Nitrite NEGATIVE NEGATIVE Urine Bilirubin NEGATIVE NEGATIVE Urine Urobilinogen NORMAL NORMAL MG/DL Urine Leukocyte Esterase NEGATIVE NEGATIVE Urine RBC (Auto) NEGATIVE NEGATIVE Urine RBC RARE /HPF Urine WBC RARE /HPF Urine Squamous Epithelial Cells NONE /HPF Urine Crystals NONE /LPF Urine Bacteria NEGATIVE /HPF Urine Casts NONE /LPF Urine Mucus NEGATIVE /LPF Urine Culture Indicated NO Urine Test POSITIVE NEGATIVE Urine Opiates Screen NEGATIVE NEGATIVE Urine Oxycodone Screen NEGATIVE NEGATIVE Urine Methadone Screen NEGATIVE NEGATIVE Urine Propoxyphene Screen NEGATIVE NEGATIVE Urine Barbiturates Screen NEGATIVE NEGATIVE Ur Tricyclic Antidepressants Screen NEGATIVE NEGATIVE Urine Phencyclidine Screen NEGATIVE NEGATIVE Urine Amphetamines Screen NEGATIVE NEGATIVE Urine Methamphetamines Screen NEGATIVE NEGATIVE Urine Benzodiazepines Screen NEGATIVE NEGATIVE Urine Cocaine Screen NEGATIVE NEGATIVE Urine Cannabinoids Screen POSITIVE H NEGATIVE Test 05/17/18 10:08 Range/Units Glucometer 373 H 70-110 MG/DL My Orders Orders - MARCELA CASTANO MD D50w (Emergency) Syringe (Dextrose 50% 5 (05/17/18 08:53) Ondansetron Injection (Zofran Injectio (05/17/18 08:57) Alcohol (05/17/18 09:00) Cbc With Automated Diff (05/17/18 09:00) Comprehensive Metabolic Panel (05/17/18 09:00) Drug Screen Stat (Urine) (05/17/18 09:00) Ua Culture If Indicated (05/17/18 09:00) Ondansetron Injection (Zofran Injectio (05/17/18 09:00) D5 Ns 1000 Ml Iv Solution (Dextrose 5%/0 (05/17/18 09:00) D50w (Emergency) Syringe (Dextrose 50% 5 (05/17/18 09:00) Hcg,Qualitative Urine (05/17/18 09:18) Us Ob Single Fetus<14 [id number] (05/17/18 09:53) Medications Given in ED Current Medications Medications Dose Ordered Sig/Dipti Route Start Time Stop Time Status Last Admin Dose Admin Dextrose 50 ml ONCE ONCE IV 05/17/18 09:00 05/17/18 09:04 DC 05/17/18 09:11 50 ML Ondansetron HCl 8 mg ONCE ONCE IVP 05/17/18 09:00 05/17/18 09:03 DC 05/17/18 09:00 8 MG Vital Signs/I&O 05/17/18 05/17/18 05/17/18 08:47 09:31 10:38 Temp 90.0 93.8 94.5 Pulse 82 92 91 Resp 18 18 16 B/P (MAP) 189/102 (131) 148/86 (106) 157/86 (109) Pulse Ox 100 100 99 O2 Delivery Room Air Room Air Room Air Capillary Refill : Less Than 3 Seconds Blood Pressure Mean: 109 Point of Care Testing Finger Stick Blood Glucose: 373 Blood Glucose Action Taken: AMP OF D50 GIVEN PER DR ORDER. Departure Impression Primary Impression: hypoglycemia/hypothermia Additional Impressions: diabetic peripheral neuropathy hepatitis C Disposition: HOME, SELF-CARE Condition: Improved Departure-Patient Inst. Decision time for Depature: 11:45 Referrals: KASANDRA SANCHEZ DO (PCP) Primary Care Physician DIOMEDES SMITH (Family) Primary Care Physician Patient Instructions: Diabetes Type 1, Adult (DC) Add. Discharge Instructions: All discharge instructions reviewed with patient and/or family. Voiced understanding. You should eat regularly today and Do fingerstick blood sugars. You have an appointment to see Dr. Weiss at [facility] on Sunday morning at 1040. MARCELA CASTANO MD May 17, 2018 11:25
[2018-05-17 12:30] VITALS: BP 180/100
[2018-05-21] MEDS ORDERED: SULF1TAB35 PO (16:05)
[2018-05-21] MEDS ORDERED: CEFD300C3 PO (16:05)
== END 2018-05-17 12:36 | disposition home or self-care (01) ==
LOC: EDUNIT# 08:47 → ER 08:48
DX: O24.911 Unspecified diabetes mellitus in pregnancy, first trimester (principal); O24.111 Pre-existing type 2 diabetes mellitus, in pregnancy, first trimester; E11.649 Type 2 diabetes mellitus with hypoglycemia without coma; E11.42 Type 2 diabetes mellitus with diabetic polyneuropathy; O98.411 Viral hepatitis complicating pregnancy, first trimester; B19.20 Unspecified viral hepatitis C without hepatic coma; O26.891 Other specified pregnancy related conditions, first trimester; R68.0 Hypothermia, not associated with low environmental temperature; O99.351 Diseases of the nervous system complicating pregnancy, first trimester; G40.909 Epilepsy, unspecified, not intractable, without status epilepticus; O99.011 Anemia complicating pregnancy, first trimester; D64.9 Anemia, unspecified; O99.331 Smoking (tobacco) complicating pregnancy, first trimester; F17.210 Nicotine dependence, cigarettes, uncomplicated; Z89.421 Acquired absence of other right toe(s); Z88.8 Allergy status to other drugs, medicaments and biological substances; Z98.890 Other specified postprocedural states; Z3A.08 8 weeks gestation of pregnancy; Z80.0 Family history of malignant neoplasm of digestive organs; Z82.49 Family history of ischemic heart disease and other diseases of the circulatory system; Z79.4 Long term (current) use of insulin
CPT/HCPCS: 36415; 76801; 80053; 80306; 80320; 81000; 82962; 84703; 85025; 96361; 96374; 96376

== ENCOUNTER → 2018-05-21 | Emergency (ER) | payer MEDICAID ==
[~2018-05-21] VITALS: Ht 167.6 cm; Wt 77.1 kg
[~2018-05-21] MED LIST changes: +ACET-2267 PO; +ASCO500T5 PO; +CEFD300C3 PO; +FERR325T18 PO; +NS IV 1000 ML 1,000 ML IV ONE; +PREN1TAB86 PO; +cefTRIAXone FOR IV USE 1,000 MG in NS (IVPB) 50 ML IV ONE; +inSUlin (REGULAR) HUMAN 1 UNIT/0.01 ML (CHARGE PER UNIT) SC ONE
[2018-05-21 10:37] VITALS: BP 174/121
[2018-05-21 11:54] LABS: BASOPHILS % (AUTO) 0 % (0-10); EOSINOPHILS # (AUTO) 0.1 10^3/uL (0.0-0.3); EOSINOPHILS % (AUTO) 1 % (0-10); HEMATOCRIT 26 % (35-52); HEMOGLOBIN 8.6 G/DL (11.5-16.0); LYMPHOCYTES % (AUTO) 11 % (12-44); MEAN CORPUSCULAR HEMOGLOBIN 24 PG (25-34); MEAN CORPUSCULAR HGB CONC 33 G/DL (32-36); MEAN CORPUSCULAR VOLUME 74 FL (80-99); MEAN PLATELET VOLUME 10.6 FL (7.4-10.4); MONOCYTES # (AUTO) 0.6 X 10^3 (0.0-1.0); MONOCYTES % (AUTO) 6 % (0-12); NEUTROPHILS # (AUTO) 7.4 X 10^3 (1.8-7.8); NEUTROPHILS % (AUTO) 81 % (42-75); PLATELET COUNT 241 10^3/uL (130-400); RED BLOOD COUNT 3.52 10^6/uL (4.35-5.85); RED CELL DISTRIBUTION WIDTH 23.2 % (10.0-14.5); WHITE BLOOD COUNT 9.1 10^3/uL (4.3-11.0)
[2018-05-21 12:17] LABS: ALANINE AMINOTRANSFERASE 45 U/L (0-55); ALBUMIN 2.8 GM/DL (3.2-4.5); ALKALINE PHOSPHATASE 164 U/L (40-136); BILIRUBIN,TOTAL 0.2 MG/DL (0.1-1.0); BUN/CREATININE RATIO 16; CALCIUM 8.2 MG/DL (8.5-10.1); CARBON DIOXIDE 19 MMOL/L (21-32); CHLORIDE 108 MMOL/L (98-107); GFR ESTIMATED > 60; GLUCOSE 370 MG/DL (70-105); MAGNESIUM 1.9 MG/DL (1.8-2.4); POTASSIUM 4.9 MMOL/L (3.6-5.0); SODIUM 133 MMOL/L (135-145)
[2018-05-21 12:36] LABS: TSH (THYROID ANALYZER) 1.11 UIU/ML (0.35-4.94)
[2018-05-21 12:57] LABS: BILIRUBIN,URINE NEGATIVE (NEGATIVE); CLARITY,URINE SLIGHTLY CLOUDY; COLOR,URINE YELLOW; GLUCOSE, URINE (UA) 4+ (NEGATIVE); KETONES,URINE NEGATIVE (NEGATIVE); LEUKOCYTE ESTERASE ,URINE 3+ (NEGATIVE); NITRITE,URINE POSITIVE (NEGATIVE); PH,URINE 6.5 (5-9); PROTEIN,URINE 4+ (NEGATIVE); UROBILINOGEN,URINE NORMAL (NORMAL)
[2018-05-21 13:20] LABS: BACTERIA,URINE LARGE /HPF; RBC,URINE 0-2 /HPF; WBC,URINE >100 /HPF
[2018-05-21 13:27] LABS: AMPHETAMINE SCREEN, URINE NEGATIVE (NEGATIVE); BARBITURATE SCREEN URINE NEGATIVE (NEGATIVE); BENZODIAZEPINES SCREEN URINE NEGATIVE (NEGATIVE); CANNABINOID SCREEN, URINE POSITIVE (NEGATIVE); COCAINE SCREEN URINE NEGATIVE (NEGATIVE); METHADONE STAT NEGATIVE (NEGATIVE); METHAMPHETAMINE SCREEN URINE S NEGATIVE (NEGATIVE); OPIATE SCREEN URINE NEGATIVE (NEGATIVE); OXYCODONE STAT NEGATIVE (NEGATIVE); PROPOXYPHENE STAT NEGATIVE (NEGATIVE); TRICYCLIC ANTIDEPRESSANTS SCRE NEGATIVE (NEGATIVE)
--- NOTE | 2018-05-21 14:44 | Diagnostic Imaging Report ---
INDICATION: Diabetic ulcer to the medial aspect of the right great toe. TIME OF EXAM: 2:05 PM FINDINGS: Three views right foot were obtained. There has been partial amputation of the second toe. Resection margins are smooth. No definite bony destructive changes of the great toe are identified. Some chronic deformity to the third and fourth metatarsal heads, similar to radiographs from one year earlier. The patient does appear to have a healing fracture at the base of the fifth metatarsal. No displacement is seen. Midfoot and hindfoot are unremarkable. There does appear to be a soft tissue defect in the great toe on the plantar surface. IMPRESSION: 1. Ulcer of the great toe. No foreign body is seen. No bony destructive changes are detected. 2. Healing fracture at the base of the fifth metatarsal. Dictated by: Dictated on workstation # [id number]
--- NOTE | 2018-05-21 16:00 | ED General ---
General Chief Complaint: Glucose Problems Stated Complaint: BLURRED VISION/CONFUSION LOW BLOOD SUGAR Nursing Triage Note: Pt arrives to ED Room #8 via EMS with c/o altered mental status, confusion, HTN , and [place]. Per EMS, pt's fiance called because the pt was confused and not acting right. Pt's BS on scene 62, one tube of PO Glucose given, BS 174. Upon arrival the pt's temp 94.3 and BS 191 Nursing Sepsis Screen: No Definite Risk Source of Information: Patient, Old Records Exam Limitations: No Limitations History of Present Illness Date Seen by Provider: May 21, 2018 Time Seen by Provider: 11:05 Initial Comments This 33-year-old woman at approximately 9 weeks gestational age presents to the emergency room with hypoglycemia and hypothermia. Patient reported her blood sugar before bed last night was 218. This morning it was 142. She began experiencing symptoms of hypoglycemia including confusion, hypertension, headache, and altered mental status. Blood sugar on scene was 62. Oral glucose was given and blood sugar improved to 172 per EMS. Patient is a brittle diabetic. She was seen in this ER 4 days ago for a severe hypoglycemia with significant hypothermia. She was to establish care with Dr. JOHNSON this morning but arrived at the emergency room instead. She receives her primary care from Graciela Loza at [facility]. She has not met with the perinatal educator since becoming . Patient also has recently been treated for urinary tract infection and a diabetic ulcer on the right great toe. She has associated swelling and erythema of the distal foot. She is afebrile. Temperature on arrival was 94.3. Allergies and Home Medications Allergies Coded Allergies: gluten (Verified Allergy, Unknown, 09/24/17) Home Medications Acetaminophen 500 Mg Tablet, 500-1,000 MG PO Q6H PRN for PAIN-MILD, (Reported) Ascorbic Acid 500 Mg Tab.chew, 500 MG PO DAILY, (Reported) Cefdinir 300 Mg Capsule, 300 MG PO BID Prescribed by: CHAUNCEY THOMAS on 05/21/18 1605 Ferrous Sulfate 325 Mg Tablet, 325 MG PO DAILY, (Reported) Gabapentin 800 Mg Tablet, 800 MG PO QID, (Reported) Hydroxyzine Pamoate 50 Mg Capsule, 50 MG PO TID PRN for ANXIETY, (Reported) LAST FILLED #90 10-05-17 Insulin Degludec 200 Unit/1 Ml Insuln.pen, 22 UNITS SQ HS, (Reported) LAST FILLED 10-05-17 Insulin Lispro 100 Unit/1 Ml Insuln.pen, SQ AC, (Reported) Vit W-Ca,Fe,FA(<1 mg) 1 Each Tablet, 1 TAB PO DAILY, (Reported) PLUS FOLIC ACID Sulfamethoxazole/Trimethoprim 1 Each Tablet, 1 EACH PO BID Prescribed by: CHAUNCEY THOMAS on 05/21/18 1605 Trazodone HCl 100 Mg Tablet, 50 MG PO HS PRN for SLEEP, (Reported) LAST FILLED #30 10-05-17 Patient Home Medication List Home Medication List Reviewed: Yes Review of Systems Review of Systems Constitutional: see HPI EENTM: no symptoms reported Respiratory: no symptoms reported Cardiovascular: see HPI, other (Hypertensive) Gastrointestinal: no symptoms reported Genitourinary: no symptoms reported : Yes LMP: Mar 19, 2018 Musculoskeletal: no symptoms reported Skin: see HPI Psychiatric/Neurological: See HPI Hematologic/Lymphatic: No Symptoms Reported Immunological/Allergic: no symptoms reported Past Cmrvmnc-Kmaugn-Pzghny Hx Past Med/Social Hx: Reviewed and Corrections made Patient Social History Alcohol Use: Denies Use Recreational Drug Use: No Drug of Choice: PAST HX meth Smoking Status: Current Everyday Smoker Type Used: Cigarettes 2nd Hand Smoke Exposure: No Recent Foreign Travel: No Contact w/Someone Who Travel: No Recent Infectious Disease Expo: No Recent Hopitalizations: No Physical Abuse: No Sexual Abuse: No Mistreated: No Fear: No Immunizations Up To Date Tetanus Booster (TDap): Unknown PED Vaccines UTD: No Date of Influenza Vaccine: Jul 03, 2016 Seasonal Allergies Seasonal Allergies: Yes Past Medical History Surgeries: Yes (OPEN HEART SX AN ; TOE AMPUTATION, CS X2) Cardiac, Section, Orthopedic Respiratory: No (TOBACCOISM) Cardiac: Yes (CARDIAC SURGERY AN ) Hypertension Neurological: Yes (SEIZURES R/T DIABETES) Neuropathy, Seizure Disorder Reproductive Disorders: No Female Reproductive Disorders: Denies Sexually Transmitted Disease: No HIV/AIDS: No Genitourinary: No Gastrointestinal: Yes (CELIAC DISEASE, HEP C) Hepatitis Musculoskeletal: No (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) Endocrine: Yes (PT HAS INSULIN PUMP) Diabetes, Insulin dep HEENT: No Loss of Vision: Bilateral Hearing Impairment: Denies Cancer: No Psychosocial: Yes Anxiety, Depression Integumentary: No Blood Disorders: Yes (HEP C+, ANEMIA) Adverse Reaction/Blood Tranf: No Family Medical History Reviewed Nursing Family Hx FH: COPD (chronic obstructive pulmonary disease) 19 FATHER FH: congestive heart failure 19 FATHER FH: liver cancer 19 MOTHER No Pertinent Family Hx Physical Exam Vital Signs Vital Signs - First Documented 05/21/18 10:37 Temp 94.3 Pulse 105 Resp 20 B/P (MAP) 174/121 (138) Pulse Ox 100 O2 Delivery Room Air Capillary Refill : Less Than 3 Seconds Height, Weight, BMI Height: 5'6.00" Weight: 170lbs. 0.0oz. [id number]; 22.7 BMI Method:Stated General Appearance: No Apparent Distress, WD/WN HEENT: PERRL/EOMI, Normal ENT Inspection Neck: Normal Inspection Respiratory: Lungs Clear, Normal Breath Sounds, No Accessory Muscle Use, No Respiratory Distress Cardiovascular: Regular Rate, Rhythm, No Edema, Normal Peripheral Pulses Gastrointestinal: Normal Bowel Sounds, Non Tender, Soft, Other (Appropriately gravid for gestational age) Extremity: Normal Capillary Refill, Other (Diabetic ulcer on the right great toe with edema and erythema great toe and of the distal foot) Neurologic/Psychiatric: Alert, Oriented x3, No Motor/Sensory Deficits, Normal 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, 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 Norm as Tested Skin: Normal Color, Warm/Dry, Other (Diabetic ulcer right great toe) Progress/Results/Core Measures Suspected Sepsis Recent Fever Within 48 Hours: No Infection Criteria Present: None New/Unexplained Altered Menta: No Sepsis Screen: No Definite Risk SIRS Temperature:94.3 Pulse: 105 Respiratory Rate: 20 Laboratory Tests 05/21/18 11:46: White Blood Count 9.1 Blood Pressure 174 /121 Mean: 138 Laboratory Tests 05/21/18 11:46: Creatinine 1.00, Platelet Count 241, Total Bilirubin 0.2 Results/Orders Lab Results Laboratory Tests Test 05/21/18 10:43 05/21/18 11:46 05/21/18 12:19 05/21/18 13:48 Range/Units Glucometer 191 H 475 *H 70-110 MG/DL White Blood Count 9.1 4.3-11.0 10^3/uL Red Blood Count 3.52 L 4.35-5.85 10^6/uL Hemoglobin 8.6 L 11.5-16.0 G/DL Hematocrit 26 L 35-52 % Mean Corpuscular Volume 74 L 80-99 FL Mean Corpuscular Hemoglobin 24 L 25-34 PG Mean Corpuscular Hemoglobin Concent 33 32-36 G/DL Red Cell Distribution Width 23.2 H 10.0-14.5 % Platelet Count 241 130-400 10^3/uL Mean Platelet Volume 10.6 H 7.4-10.4 FL Neutrophils (%) (Auto) 81 H 42-75 % Lymphocytes (%) (Auto) 11 L 12-44 % Monocytes (%) (Auto) 6 0-12 % Eosinophils (%) (Auto) 1 0-10 % Basophils (%) (Auto) 0 0-10 % Neutrophils # (Auto) 7.4 1.8-7.8 X 10^3 Lymphocytes # (Auto) 1.0 1.0-4.0 X 10^3 Monocytes # (Auto) 0.6 0.0-1.0 X 10^3 Eosinophils # (Auto) 0.1 0.0-0.3 10^3/uL Basophils # (Auto) 0.0 0.0-0.1 10^3/uL Sodium Level 133 L 135-145 MMOL/L Potassium Level 4.9 3.6-5.0 MMOL/L Chloride Level 108 H 98-107 MMOL/L Carbon Dioxide Level 19 L 21-32 MMOL/L Anion Gap 6 5-14 MMOL/L Blood Urea Nitrogen 16 7-18 MG/DL Creatinine 1.00 0.60-1.30 MG/DL Estimat Glomerular Filtration Rate > 60 BUN/Creatinine Ratio 16 Glucose Level 370 H 70-105 MG/DL Calcium Level 8.2 L 8.5-10.1 MG/DL Corrected Calcium 9.2 8.5-10.1 MG/DL Magnesium Level 1.9 1.8-2.4 MG/DL Total Bilirubin 0.2 0.1-1.0 MG/DL Aspartate Amino Transf (AST/SGOT) 26 5-34 U/L Alanine Aminotransferase (ALT/SGPT) 45 0-55 U/L Alkaline Phosphatase 164 H 40-136 U/L C-Reactive Protein High Sensitivity 0.42 0.00-0.50 MG/DL Total Protein 6.0 L 6.4-8.2 GM/DL Albumin 2.8 L 3.2-4.5 GM/DL TSH [place] Testing 1.11 0.35-4.94 UIU/ML Serum Alcohol < 10 <10 MG/DL Urine Color YELLOW Urine Clarity SLIGHTLY CLOUDY Urine pH 6.5 5-9 Urine Specific [place] 1.010 L 1.016-1.022 Urine Protein 4+ NEGATIVE Urine Glucose (UA) 4+ H NEGATIVE Urine Ketones NEGATIVE NEGATIVE Urine Nitrite POSITIVE H NEGATIVE Urine Bilirubin NEGATIVE NEGATIVE Urine Urobilinogen NORMAL NORMAL MG/DL Urine Leukocyte Esterase 3+ H NEGATIVE Urine RBC (Auto) 2+ H NEGATIVE Urine RBC 0-2 /HPF Urine WBC >100 H /HPF Urine Squamous Epithelial Cells 10-25 H /HPF Urine Crystals NONE /LPF Urine Bacteria LARGE H /HPF Urine Casts NONE /LPF Urine Mucus NEGATIVE /LPF Urine Culture Indicated YES Urine Opiates Screen NEGATIVE NEGATIVE Urine Oxycodone Screen NEGATIVE NEGATIVE Urine Methadone Screen NEGATIVE NEGATIVE Urine Propoxyphene Screen NEGATIVE NEGATIVE Urine Barbiturates Screen NEGATIVE NEGATIVE Ur Tricyclic Antidepressants Screen NEGATIVE NEGATIVE Urine Phencyclidine Screen NEGATIVE NEGATIVE Urine Amphetamines Screen NEGATIVE NEGATIVE Urine Methamphetamines Screen NEGATIVE NEGATIVE Urine Benzodiazepines Screen NEGATIVE NEGATIVE Urine Cocaine Screen NEGATIVE NEGATIVE Urine Cannabinoids Screen POSITIVE H NEGATIVE Test 05/21/18 15:37 05/21/18 16:29 05/21/18 16:42 Range/Units Glucometer 481 *H 336 H 70-110 MG/DL Micro Results Microbiology 05/21/18 Urine Culture - Preliminary, Resulted Sent To [facility] 05/21/18 Gram Stain, Resulted Pending 05/21/18 Wound Culture - Preliminary, Resulted Sent To [facility] My Orders Orders - CHAUNCEY ALCANTARA MD Alcohol (05/21/18 11:14) Cbc With Automated Diff (05/21/18 11:14) Comprehensive Metabolic Panel (05/21/18 11:14) Drug Screen Stat (Urine) (05/21/18 11:14) Ua Culture If Indicated (05/21/18 11:14) Saline Lock/Iv-Start (05/21/18 11:14) Ns Iv 1000 Ml (Sodium Chloride 0.9%) (05/21/18 11:14) Accucheck Stat ONCE (05/21/18 11:14) Accucheck Stat ONCE (05/21/18 11:14) Magnesium (05/21/18 11:21) Hs C Reactive Protein (05/21/18 11:23) Thyroid Analyzer (05/21/18 11:23) General/Regular (05/21/18 Lunch) Disposal Tray (Paper/Plastic) (05/21/18 12:12) Urine Culture (05/21/18 12:19) Ceftriaxone For Iv Use (Rocephin For I (05/21/18 13:30) Foot, Right, 3 View (05/21/18 13:50) Insulin (Regular) Human (Humulin R (Per (05/21/18 14:00) Accucheck Stat ONCE (05/21/18 13:50) Wound Culture (05/21/18 14:36) Type And Screen (05/21/18 15:45) Hepatitis B Surface Antibody (05/21/18 15:45) Hiv 1&2 Antibody (05/21/18 15:45) Rubella Antibody Igg (05/21/18 15:45) Syphilis Antibody Screen (05/21/18 15:45) Insulin (Regular) Human (Humulin R (Per (05/21/18 16:00) Medications Given in ED Current Medications Medications Dose Ordered Sig/Dipti Route Start Time Stop Time Status Last Admin Dose Admin Ceftriaxone Sodium 1000 mg/ Sodium Chloride 50 ml @ 100 mls/hr ONCE ONCE IV 05/21/18 13:30 05/21/18 13:59 DC 05/21/18 13:50 100 MLS/HR Insulin Human Regular 5 unit ONCE ONCE SC 05/21/18 14:00 05/21/18 14:01 DC 05/21/18 14:37 5 UNIT Insulin Human Regular 5 unit ONCE ONCE SC 05/21/18 16:00 05/21/18 16:01 DC 05/21/18 16:00 5 UNIT Sodium Chloride 1,000 ml @ 0 mls/hr Q0M ONCE IV 05/21/18 11:14 05/21/18 11:17 DC 05/21/18 12:21 1,000 MLS/HR Vital Signs/I&O 05/21/18 10:37 Temp 94.3 Pulse 105 Resp 20 B/P (MAP) 174/121 (138) Pulse Ox 100 O2 Delivery Room Air Capillary Refill : Less Than 3 Seconds Blood Pressure Mean: 138 Point of Care Testing Finger Stick Blood Glucose: 191 Blood Glucose Action Taken: Notified, no action taken. Progress Note : Progress Note Patient had mild hypothermia and was placed under the bear hugger warmer. Warm fluids were administered. Patient was allowed to eat to maintain blood sugar. She eventually became hyperglycemic and 2 doses of subcutaneous insulin were administered. She was found to have urinary tract infection recurrence. Rocephin was administered. The toe ulcer was cultured. Case was discussed with Tamar Westbrook, Dr. JOHNSON, Dr. Green, and Dr. Olmedo. Admission was discussed but not felt appropriate by Dr. Green or Dr. JOHNSON. Arrangements were made for follow-up with Dr. Olmedo and Tamar Westbrook. Patient is to call Dr. JOHNSON's office to confirm follow-up with him. Since patient has such difficult vascular access, labs were drawn from the EJ line she had placed today. Patient was started on Bactrim and Omnicef for treatment of her ulcer and urinary tract infection. Greater than 30 minutes of time was dedicated to coordination of care with this patient and her other providers. Right foot x- ray was obtained and compared with prior. Bone structures actually appear improved and there is no evidence of active osteomyelitis by x-ray at this time. heart tones were obtained a Doppler and were in the 170s. Diagnostic Imaging Diagonstic Imaging: Xray Plain Films/CT/US/NM/MRI: other (Right foot) Comments Right foot x-ray viewed by me and compared with prior. See report below: NAME: HUONG ARANGO [facility] REC#: [id number] PT STATUS: REG ER : 1985 PHYSICIAN: CHAUNCEY ALCANTARA MD ADMIT DATE: 05/21/18/ER Signed Date of Exam: 05/21/18 FOOT, RIGHT, 3 VIEW INDICATION: Diabetic ulcer to the medial aspect of the right great toe. TIME OF EXAM: 2:05 PM FINDINGS: Three views right foot were obtained. There has been partial amputation of the second toe. Resection margins are smooth. No definite bony destructive changes of the great toe are identified. Some chronic deformity to the third and fourth metatarsal heads, similar to radiographs from one year earlier. The patient does appear to have a healing fracture at the base of the fifth metatarsal. No displacement is seen. Midfoot and hindfoot are unremarkable. There does appear to be a soft tissue defect in the great toe on the plantar surface. IMPRESSION: 1. Ulcer of the great toe. No foreign body is seen. No bony destructive changes are detected. 2. Healing fracture at the base of the fifth metatarsal. Dictated by: Dictated on workstation # [id number] Dict: 05/21/18 1440 Trans: 05/21/18 1513 Interpreted by: DEMOND REAVES MD Electronically signed by: DEMOND REAVES MD 05/21/18 1513 Departure Impression Primary Impression: Hypoglycemia associated with diabetes Additional Impressions: Accidental hypothermia Qualified Codes: T68.XXXA - Hypothermia, initial encounter Urinary tract infection Qualified Codes: N39.0 - Urinary tract infection, site not specified Ulcer of right great toe due to diabetes mellitus Cellulitis of right foot Noncompliance Positive urine drug screen Qualified Codes: Z3A.09 - 9 weeks gestation of Disposition: 01 HOME, SELF-CARE Condition: Improved Departure-Patient Inst. Decision time for Depature: 15:59 Referrals: KASANDRA GREEN DO (PCP/Family) Primary Care Physician Patient Instructions: Diabetes Type 1, Adult (DC), Diabetic Foot Ulcer (DC) Add. Discharge Instructions: Complete your antibiotics as prescribed. Keep your ulcer covered to avoid contamination. Call Dr. JOHNSON's office as soon as possible to schedule a follow-up appointment. You have an appointment at wound care at 1:15 p.m. tomorrow, Sunday, May 22. You have an appointment with Tamar Westbrook at [facility] on May 23 at 10: 00. It is extremely important that you do not miss these appointments. Continue your sliding scale insulin as previously instructed until you meet with Tamar. Return to the emergency room if you have worsening symptoms. Avoid any inhaled substances including marijuana and tobacco smoke as well as any other drugs or alcohol. All discharge instructions reviewed with patient and/or family. Voiced understanding. Scripts Cefdinir (Cefdinir) 300 Mg Capsule 300 MG PO BID, #20 CAP Prov: CHAUNCEY ALCANTARA MD 05/21/18 Sulfamethoxazole/Trimethoprim (Bactrim Ds Tablet) 1 Each Tablet 1 EACH PO BID, #20 TAB Prov: CHAUNCEY ALCANTARA MD 05/21/18 Copy Copies To 1: KASANDRA GREEN DO Copies To 2: PEEWEE JOHNSON JOSHUA T MD May 21, 2018 16:00
== END | disposition home or self-care (01) ==
LOC: EDUNIT# 10:37 → ER 10:39
DX: O24.111 Pre-existing type 2 diabetes mellitus, in pregnancy, first trimester (principal); O99.711 Diseases of the skin and subcutaneous tissue complicating pregnancy, first trimester; E11.649 Type 2 diabetes mellitus with hypoglycemia without coma; E11.621 Type 2 diabetes mellitus with foot ulcer; L97.519 Non-pressure chronic ulcer of other part of right foot with unspecified severity; L03.115 Cellulitis of right lower limb; O23.41 Unspecified infection of urinary tract in pregnancy, first trimester; O16.1 Unspecified maternal hypertension, first trimester; O99.351 Diseases of the nervous system complicating pregnancy, first trimester; G40.909 Epilepsy, unspecified, not intractable, without status epilepticus; O98.411 Viral hepatitis complicating pregnancy, first trimester; B19.20 Unspecified viral hepatitis C without hepatic coma; O99.011 Anemia complicating pregnancy, first trimester; D64.9 Anemia, unspecified; O26.891 Other specified pregnancy related conditions, first trimester; R82.5 Elevated urine levels of drugs, medicaments and biological substances; O9A.22 Injury, poisoning and certain other consequences of external causes complicating childbirth; T68.XXXA Hypothermia, initial encounter; O99.341 Other mental disorders complicating pregnancy, first trimester; F41.9 Anxiety disorder, unspecified; F32.9 Major depressive disorder, single episode, unspecified; O99.331 Smoking (tobacco) complicating pregnancy, first trimester; F17.210 Nicotine dependence, cigarettes, uncomplicated; Z98.890 Other specified postprocedural states; Z3A.09 9 weeks gestation of pregnancy; Z82.49 Family history of ischemic heart disease and other diseases of the circulatory system; Z91.14 Patient's other noncompliance with medication regimen; Z87.19 Personal history of other diseases of the digestive system; Z79.4 Long term (current) use of insulin; X31.XXXA Exposure to excessive natural cold, initial encounter
CPT/HCPCS: 36415; 73630; 80053; 80306; 80320; 81000; 82962; 83735; 84443; 85025; 86141; 86703; 86706; 86762; 86780; 86850; 86900; 86901; 87070; 87077; 87088; 87186; 87205; 96365; 96372

== ENCOUNTER → 2018-05-22 | Outpatient (CLI) | payer MEDICAID ==
[~2018-05-22] MED LIST changes: -NS IV 1000 ML 1,000 ML IV ONE; -cefTRIAXone FOR IV USE 1,000 MG in NS (IVPB) 50 ML IV ONE; -inSUlin (REGULAR) HUMAN 1 UNIT/0.01 ML (CHARGE PER UNIT) SC ONE
== END ==
LOC: WOUNDCARE 13:19
PROVIDERS: ATTEND Surgery
DX: O24.019 Pre-existing type 1 diabetes mellitus, in pregnancy, unspecified trimester (principal); E10.621 Type 1 diabetes mellitus with foot ulcer; O99.719 Diseases of the skin and subcutaneous tissue complicating pregnancy, unspecified trimester; L97.512 Non-pressure chronic ulcer of other part of right foot with fat layer exposed; O26.899 Other specified pregnancy related conditions, unspecified trimester; M86.471 Chronic osteomyelitis with draining sinus, right ankle and foot; E10.42 Type 1 diabetes mellitus with diabetic polyneuropathy; E10.65 Type 1 diabetes mellitus with hyperglycemia
CPT/HCPCS: 99213

== ENCOUNTER → 2018-05-27 | Outpatient (CLI) | payer MEDICAID | LOC: WOUNDCARE 13:01 | PROVIDERS: ATTEND Surgery | DX: O24.019 Pre-existing type 1 diabetes mellitus, in pregnancy, unspecified trimester (principal); E10.621 Type 1 diabetes mellitus with foot ulcer; O99.719 Diseases of the skin and subcutaneous tissue complicating pregnancy, unspecified trimester; L97.512 Non-pressure chronic ulcer of other part of right foot with fat layer exposed; O26.899 Other specified pregnancy related conditions, unspecified trimester; M86.471 Chronic osteomyelitis with draining sinus, right ankle and foot; E10.622 Type 1 diabetes mellitus with other skin ulcer; I87.332 Chronic venous hypertension (idiopathic) with ulcer and inflammation of left lower extremity; L97.222 Non-pressure chronic ulcer of left calf with fat layer exposed; E10.42 Type 1 diabetes mellitus with diabetic polyneuropathy; E10.65 Type 1 diabetes mellitus with hyperglycemia | CPT/HCPCS: 11042 ==

== ENCOUNTER → 2018-05-29 | Emergency (ER) | payer MEDICAID ==
[~2018-05-29] VITALS: Ht 167.6 cm; Wt 77.1 kg
[2018-05-29 18:39] LABS: BACTERIA,URINE TRACE /HPF; BILIRUBIN,URINE NEGATIVE (NEGATIVE); CLARITY,URINE CLEAR; COLOR,URINE YELLOW; GLUCOSE, URINE (UA) NEGATIVE (NEGATIVE); KETONES,URINE NEGATIVE (NEGATIVE); LEUKOCYTE ESTERASE ,URINE NEGATIVE (NEGATIVE); NITRITE,URINE NEGATIVE (NEGATIVE); PH,URINE 6 (5-9); PROTEIN,URINE 4+ (NEGATIVE); SQUAMOUS EPITHELIAL CELL,UR 25-50 /HPF; UROBILINOGEN,URINE NORMAL (NORMAL)
--- NOTE | 2018-05-29 18:49 | ED General ---
General Chief Complaint: Glucose Problems Stated Complaint: LOW BLOOD SUGAR Source of Information: Patient Exam Limitations: No Limitations History of Present Illness Date Seen by Provider: May 29, 2018 Time Seen by Provider: 18:13 Initial Comments Here by EMS with report of low blood sugar. Noted LO on monitor. IV established by EMS and 1 amp D50 given. She responded well. She is 10 weeks and is a known brittle diabetic. Denies other complaints except upper respiratory runny nose. Did have recent adjustments of insulin down and did eat today. Timing/Duration: 1 Hour Severity: Moderate Associated Systoms: No Chest Pain, No Cough, No Fever/Chills, No Nausea/ Vomiting, No Shortness of Air, No Weakness Allergies and Home Medications Allergies Coded Allergies: gluten (Verified Allergy, Unknown, 09/24/17) Home Medications Acetaminophen 500 Mg Tablet, 500-1,000 MG PO Q6H PRN for PAIN-MILD, (Reported) Ascorbic Acid 500 Mg Tab.chew, 500 MG PO DAILY, (Reported) Cefdinir 300 Mg Capsule, 300 MG PO BID Prescribed by: CHAUNCEY THOMAS on 05/21/18 1605 Ferrous Sulfate 325 Mg Tablet, 325 MG PO DAILY, (Reported) Gabapentin 800 Mg Tablet, 800 MG PO QID, (Reported) Hydroxyzine Pamoate 50 Mg Capsule, 50 MG PO TID PRN for ANXIETY, (Reported) LAST FILLED #90 10-05-18 Insulin Degludec 200 Unit/1 Ml Insuln.pen, 22 UNITS SQ HS, (Reported) LAST FILLED 2-2-18 Insulin Lispro 100 Unit/1 Ml Insuln.pen, SQ AC, (Reported) Vit W-Ca,Fe,FA(<1 mg) 1 Each Tablet, 1 TAB PO DAILY, (Reported) PLUS FOLIC ACID Sulfamethoxazole/Trimethoprim 1 Each Tablet, 1 EACH PO BID Prescribed by: CHAUNCEY THOMAS on 05/21/18 1605 Trazodone HCl 100 Mg Tablet, 50 MG PO HS PRN for SLEEP, (Reported) LAST FILLED #30 2-2-18 Patient Home Medication List Home Medication List Reviewed: Yes Review of Systems Review of Systems Constitutional: see HPI; No chills, No fever EENTM: nose congestion; No ear pain, No throat pain Respiratory: No cough, No short of breath Cardiovascular: No chest pain, No edema Gastrointestinal: No abdominal pain, No nausea, No vomiting Genitourinary: no symptoms reported : Yes Skin: lesions, other (improving wound to right foot) Psychiatric/Neurological: No Symptoms Reported Past Xnhyufl-Kfjkbg-Qixqnx Hx Past Med/Social Hx: Reviewed Nursing Past Med/Soc Hx Patient Social History Alcohol Use: Denies Use Drug of Choice: PAST HX meth Smoking Status: Current Everyday Smoker Type Used: Cigarettes 2nd Hand Smoke Exposure: No Recent Foreign Travel: No Contact w/Someone Who Travel: No Recent Hopitalizations: No Immunizations Up To Date Tetanus Booster (TDap): Unknown PED Vaccines UTD: No Date of Influenza Vaccine: Jul 03, 2016 Seasonal Allergies Seasonal Allergies: Yes Past Medical History Surgeries: Yes (OPEN HEART SX AN INFANT; TOE AMPUTATION, CS X2) Cardiac, Section, Orthopedic Respiratory: No (TOBACCOISM) Cardiac: Yes (CARDIAC SURGERY AN ) Hypertension Neurological: Yes (SEIZURES R/T DIABETES) Neuropathy, Seizure Disorder Reproductive Disorders: No Female Reproductive Disorders: Denies Sexually Transmitted Disease: No HIV/AIDS: No Genitourinary: No Gastrointestinal: Yes (CELIAC DISEASE, HEP C) Hepatitis Musculoskeletal: No (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) Endocrine: Yes (PT HAS INSULIN PUMP) Diabetes, Insulin dep HEENT: No Loss of Vision: Bilateral Hearing Impairment: Denies Cancer: No Psychosocial: Yes Anxiety, Depression Integumentary: No Blood Disorders: Yes (HEP C+, ANEMIA) Adverse Reaction/Blood Tranf: No Family Medical History Reviewed Nursing Family Hx FH: COPD (chronic obstructive pulmonary disease) 19 FATHER FH: congestive heart failure 19 FATHER FH: liver cancer 19 MOTHER No Pertinent Family Hx Physical Exam Vital Signs Vital Signs - First Documented 05/29/18 18:12 Temp 97.3 Pulse 90 Resp 18 B/P (MAP) 198/121 (146) Pulse Ox 100 O2 Delivery Room Air Capillary Refill : Height, Weight, BMI Height: 5'6.00" Weight: 170lbs. 0.0oz. 77.117985cz; 22.7 BMI Method:Stated General Appearance: No Apparent Distress, WD/WN HEENT: PERRL/EOMI, Pharynx Normal, Other (nasal congestion) Neck: Non Tender, Supple Respiratory: Lungs Clear, Normal Breath Sounds Cardiovascular: Regular Rate, Rhythm, No Murmur Gastrointestinal: Non Tender, Soft Extremity: Normal Range of Motion, Non Tender Neurologic/Psychiatric: Alert, Oriented x3 Skin: Normal Color, Warm/Dry Progress/Results/Core Measures Suspected Sepsis SIRS Temperature: Pulse: Respiratory Rate: Blood Pressure / Mean: Results/Orders Lab Results Laboratory Tests Test 05/29/18 18:16 05/29/18 18:25 05/29/18 20:14 Range/Units Glucometer 124 H 244 H 70-110 MG/DL Urine Color YELLOW Urine Clarity CLEAR Urine pH 6 5-9 Urine Specific [place] 1.010 L 1.016-1.022 Urine Protein 4+ NEGATIVE Urine Glucose (UA) NEGATIVE NEGATIVE Urine Ketones NEGATIVE NEGATIVE Urine Nitrite NEGATIVE NEGATIVE Urine Bilirubin NEGATIVE NEGATIVE Urine Urobilinogen NORMAL NORMAL MG/DL Urine Leukocyte Esterase NEGATIVE NEGATIVE Urine RBC (Auto) 2+ H NEGATIVE Urine RBC 2-5 H /HPF Urine WBC 2-5 /HPF Urine Squamous Epithelial Cells 25-50 H /HPF Urine Crystals NONE /LPF Urine Bacteria TRACE /HPF Urine Casts NONE /LPF Urine Mucus NEGATIVE /LPF Urine Culture Indicated NO Vital Signs/I&O 05/29/18 18:12 Temp 97.3 Pulse 90 Resp 18 B/P (MAP) 198/121 (146) Pulse Ox 100 O2 Delivery Room Air Capillary Refill : Progress Note : Progress Note Seen and evaluated. Blood sugar 125. Meal ordered. UA obtained due to recent UTI. monitor patient. 2000: Tolerated meal well. heart tones 136 by Doppler. Maintained blood sugar. I did discuss the case with Dr. Adame. His clinic is working on getting evaluation at . Patient is to call his clinic in the morning. The patient does have availability each Sunday and has a friend who can take her up to if needed. Discharged home with return precautions. Patient verbalize understanding instructions and agreement with plan. Departure Impression Primary Impression: Hypoglycemia associated with diabetes Disposition: 01 HOME, SELF-CARE Condition: Improved Departure-Patient Inst. Decision time for Depature: 20:04 Referrals: DIOMEDES SMITH (PCP) Primary Care Physician KASANDRA SANCHEZ DO (Family) Primary Care Physician Patient Instructions: Diabetes Type 1, Adult (DC), HYPOGLYCEMIA Add. Discharge Instructions: All discharge instructions reviewed with patient and/or family. Voiced understanding. It is very important that you monitor your sugar level. Count and keep a log of your carbs to assist with provider adjustment of her insulin dosing. Call Dr. Adame's clinic in the morning to discuss your follow-up appointment with [facility]. Return for worse pain, fever, vomiting, weakness, breathing problems or other concerns as needed. You should be eating 3 meals daily as well as 3 snacks to ensure that she blood sugar is not dropping too low. Copy Copies To 1: PEEWEE ADAME TIMOTHY D MD May 29, 2018 18:48
[2018-05-29 20:36] VITALS: BP 156/98
== END | disposition home or self-care (01) ==
LOC: EDUNIT# 18:12 → ER 18:13
DX: O24.111 Pre-existing type 2 diabetes mellitus, in pregnancy, first trimester (principal); E11.649 Type 2 diabetes mellitus with hypoglycemia without coma; O16.1 Unspecified maternal hypertension, first trimester; O99.351 Diseases of the nervous system complicating pregnancy, first trimester; G40.909 Epilepsy, unspecified, not intractable, without status epilepticus; O99.341 Other mental disorders complicating pregnancy, first trimester; F41.9 Anxiety disorder, unspecified; F32.9 Major depressive disorder, single episode, unspecified; O99.011 Anemia complicating pregnancy, first trimester; D64.9 Anemia, unspecified; O98.411 Viral hepatitis complicating pregnancy, first trimester; B19.20 Unspecified viral hepatitis C without hepatic coma; O99.331 Smoking (tobacco) complicating pregnancy, first trimester; F17.210 Nicotine dependence, cigarettes, uncomplicated; Z3A.10 10 weeks gestation of pregnancy; Z88.8 Allergy status to other drugs, medicaments and biological substances; Z98.890 Other specified postprocedural states; Z79.4 Long term (current) use of insulin; Z80.0 Family history of malignant neoplasm of digestive organs; Z82.49 Family history of ischemic heart disease and other diseases of the circulatory system
CPT/HCPCS: 81000; 82962

== ENCOUNTER → 2018-06-05 | Outpatient (CLI) | payer MEDICAID | LOC: WOUNDCARE 13:01 | PROVIDERS: ATTEND Surgery | DX: E10.621 Type 1 diabetes mellitus with foot ulcer (principal); E10.42 Type 1 diabetes mellitus with diabetic polyneuropathy; E10.65 Type 1 diabetes mellitus with hyperglycemia; O26.899 Other specified pregnancy related conditions, unspecified trimester; L97.512 Non-pressure chronic ulcer of other part of right foot with fat layer exposed; L97.222 Non-pressure chronic ulcer of left calf with fat layer exposed; I87.332 Chronic venous hypertension (idiopathic) with ulcer and inflammation of left lower extremity; O24.019 Pre-existing type 1 diabetes mellitus, in pregnancy, unspecified trimester; M86.471 Chronic osteomyelitis with draining sinus, right ankle and foot; O99.719 Diseases of the skin and subcutaneous tissue complicating pregnancy, unspecified trimester | CPT/HCPCS: 11042 ==

== ENCOUNTER 2018-07-16 10:42 | Emergency (ER) | payer MEDICAID ==
[~2018-07-16] VITALS: Ht 162.6 cm; Wt 65.8 kg
[2018-07-16] MEDS ORDERED: CEPH-507 PO (11:34)
[2018-07-16] MEDS ORDERED: HYDR-4226 PO (11:34)
--- NOTE | 2018-07-16 11:34 | ED Lower Extremity ---
General Chief Complaint: Lower Extremity Stated Complaint: diabetes (16 wks) Source: patient Exam Limitations: no limitations History of Present Illness Date Seen by Provider: Jul 16, 2018 Time Seen by Provider: 11:30 Initial Comments To ER with right foot pain after having her right great toe amputated 3 weeks ago at . She finished her pain medicine and is out of them but her foot still hurts. Glucose this morning was 126. She is 16 weeks she states. Onset: other Severity: moderate Pain/Injury Location: right foot, right 1st toe Modifying Factors: Worse With Movement Allergies and Home Medications Allergies Coded Allergies: gluten (Verified Allergy, Unknown, 09/24/17) Home Medications Acetaminophen 500 Mg Tablet, 500-1,000 MG PO Q6H PRN for PAIN-MILD, (Reported) Ascorbic Acid 500 Mg Tab.chew, 500 MG PO DAILY, (Reported) Cefdinir 300 Mg Capsule, 300 MG PO BID Prescribed by: CHAUNCEY THOMAS on 05/21/18 1605 Ferrous Sulfate 325 Mg Tablet, 325 MG PO DAILY, (Reported) Gabapentin 800 Mg Tablet, 800 MG PO QID, (Reported) Hydroxyzine Pamoate 50 Mg Capsule, 50 MG PO TID PRN for ANXIETY, (Reported) LAST FILLED #90 2-2-18 Insulin Degludec 200 Unit/1 Ml Insuln.pen, 22 UNITS SQ HS, (Reported) LAST FILLED 2-2-18 Insulin Lispro 100 Unit/1 Ml Insuln.pen, SQ AC, (Reported) Vit W-Ca,Fe,FA(<1 mg) 1 Each Tablet, 1 TAB PO DAILY, (Reported) PLUS FOLIC ACID Sulfamethoxazole/Trimethoprim 1 Each Tablet, 1 EACH PO BID Prescribed by: CHAUNCEY THOMAS on 05/21/18 1605 Trazodone HCl 100 Mg Tablet, 50 MG PO HS PRN for SLEEP, (Reported) LAST FILLED #30 2-2-18 Patient Home Medication List Home Medication List Reviewed: Yes Review of Systems Constitutional: see HPI EENTM: see HPI Respiratory: no symptoms reported Cardiovascular: no symptoms reported Genitourinary: no symptoms reported Musculoskeletal: see HPI Skin: no symptoms reported Psychiatric/Neurological: No Symptoms Reported Past Zyhpcqo-Iadfmr-Mbqcxh Hx Patient Social History Alcohol Use: Denies Use Recreational Drug Use: No Drug of Choice: Marijuana Smoking Status: Former Smoker Type Used: Cigarettes 2nd Hand Smoke Exposure: No Recent Hopitalizations: No Immunizations Up To Date Tetanus Booster (TDap): Unknown PED Vaccines UTD: No Date of Influenza Vaccine: Jul 03, 2016 Seasonal Allergies Seasonal Allergies: No Past Medical History Surgeries: Yes (OPEN HEART SX AN INFANT; TOE AMPUTATION, CS X2) Cardiac, Section, Orthopedic Respiratory: Yes (TOBACCOISM) Cardiac: Yes (CARDIAC SURGERY AN ) Hypertension Neurological: Yes (SEIZURES R/T DIABETES) Neuropathy, Seizure Disorder Reproductive Disorders: No Female Reproductive Disorders: Denies Sexually Transmitted Disease: No HIV/AIDS: No Genitourinary: No Gastrointestinal: Yes (CELIAC DISEASE, HEP C) Hepatitis Musculoskeletal: Yes (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 0.0oz. 77.777074wr; 22.7 BMI Method:Stated General Appearance: WD/WN, no apparent distress HEENT: PERRL/EOMI, normal ENT inspection Respiratory: no respiratory distress, no accessory muscle use Hips: bilateral hip non-tender, bilateral hip normal inspection, bilateral hip normal range of motion Legs: bilateral leg non-tender, bilateral leg normal inspection, bilateral leg normal range of motion Knees: bilateral knee non-tender, bilateral knee normal inspection, bilateral knee normal range of motion Ankles: bilateral ankle non-tender, bilateral ankle normal inspection, bilateral ankle normal range of motion Feet: right foot pain, right foot soft tissue tenderness (the stump of the right great toe is slightly erythematous which is likely just a reaction to sutures. This erythema only extends about half to 1 cm beyond either side of the incision. There is no drainage at this time but there is some dried drainage on her sock. A culture of this will be collected. We will start antibiotics and I'll give her a few more pain pills.) Skin: normal color, warm/dry Progress/Results/Core Measures Results/Orders My Orders Orders - LATOYA CHRISTIANSEN APRN Cbc With Automated Diff (07/16/18 11:09) Comprehensive Metabolic Panel (07/16/18 11:09) Iv Heplock-Insert (Order) (07/16/18 11:09) Accucheck Stat ONCE (07/16/18 11:09) Ua Culture If Indicated (07/16/18 11:09) Drug Screen Stat (Urine) (07/16/18 11:09) Wound Culture (07/16/18 11:28) Departure Impression Primary Impression: Toe pain, right Disposition: HOME, SELF-CARE Condition: Stable Departure-Patient Inst. Decision time for Depature: 11:32 Referrals: DIOMEDES SMITH (PCP) Primary Care Physician KASANDRA SANCHEZ DO (Family) Primary Care Physician Patient Instructions: Postoperative Pain (DC) Add. Discharge Instructions: 1. Continue with wound care the right foot. Follow-up with your surgeon at . Antibiotics and pain medication as directed. Instructions reviewed with patient and/or family. Voiced understanding. Scripts Cephalexin (Keflex) 500 Mg Capsule 500 MG PO QID, #20 CAP Prov: LATOYA CHRISTIANSEN APRN 07/16/18 Hydrocodone/Acetaminophen ([place] 5-325 Tablet) 1 Each Tablet 1 EACH PO Q6H PRN for PAIN-MODERATE MDD 10, #10 TAB Do not fill unless Keflex is also filled Prov: LATOYA CHRISTIANSEN APRN 07/16/18 LATOYA CHRISTIANSEN APRN Jul 16, 2018 11:34
[2018-07-16 11:41] VITALS: BP 153/88
== END 2018-07-16 11:41 | disposition home or self-care (01) ==
LOC: EDUNIT# 10:42 → ER 10:45
DX: O26.891 Other specified pregnancy related conditions, first trimester (principal); M79.674 Pain in right toe(s); O99.612 Diseases of the digestive system complicating pregnancy, second trimester; B19.20 Unspecified viral hepatitis C without hepatic coma; O24.912 Unspecified diabetes mellitus in pregnancy, second trimester; E11.40 Type 2 diabetes mellitus with diabetic neuropathy, unspecified; O99.342 Other mental disorders complicating pregnancy, second trimester; F41.9 Anxiety disorder, unspecified; F32.9 Major depressive disorder, single episode, unspecified; O99.012 Anemia complicating pregnancy, second trimester; D64.9 Anemia, unspecified; O99.352 Diseases of the nervous system complicating pregnancy, second trimester; G40.909 Epilepsy, unspecified, not intractable, without status epilepticus; O16.2 Unspecified maternal hypertension, second trimester; Z87.891 Personal history of nicotine dependence; Z98.890 Other specified postprocedural states; Z3A.16 16 weeks gestation of pregnancy; Z82.49 Family history of ischemic heart disease and other diseases of the circulatory system; Z80.0 Family history of malignant neoplasm of digestive organs; Z89.411 Acquired absence of right great toe; Z79.4 Long term (current) use of insulin
CPT/HCPCS: 87070; 87077; 87186; 87205; 99283

== ENCOUNTER 2018-09-29 18:00 | Inpatient (IN) | payer MEDICAID ==
[~2018-09-29] VITALS: Ht 167.6 cm; Wt 91.0 kg
[~2018-09-29 18:00] MED LIST changes: +CEPH-507 PO; +GABA800T10 PO; -GABA800T2 PO; +HYDR-4226 PO
--- NOTE | 2018-09-29 18:53 | NUR ---
LAB HERE TO ATTEMPT TO DRAW BLOOD.
[2018-09-29 19:22] LABS: BASOPHILS # (AUTO) 0.1 10^3/uL (0.0-0.1); BASOPHILS % (AUTO) 1 % (0-10); EOSINOPHILS # (AUTO) 0.2 10^3/uL (0.0-0.3); EOSINOPHILS % (AUTO) 2 % (0-10); HEMATOCRIT 27 % (35-52); LYMPHOCYTES # (AUTO) 1.7 X 10^3 (1.0-4.0); LYMPHOCYTES % (AUTO) 20 % (12-44); MEAN CORPUSCULAR HEMOGLOBIN 29 PG (25-34); MEAN CORPUSCULAR HGB CONC 34 G/DL (32-36); MEAN CORPUSCULAR VOLUME 84 FL (80-99); MEAN PLATELET VOLUME 11.7 FL (7.4-10.4); MONOCYTES # (AUTO) 0.8 X 10^3 (0.0-1.0); MONOCYTES % (AUTO) 9 % (0-12); NEUTROPHILS % (AUTO) 69 % (42-75); PLATELET COUNT 205 10^3/uL (130-400); RED CELL DISTRIBUTION WIDTH 14.4 % (10.0-14.5); WHITE BLOOD COUNT 8.7 10^3/uL (4.3-11.0)
[2018-09-29 19:45] LABS: ALBUMIN 2.4 GM/DL (3.2-4.5); BILIRUBIN,TOTAL 0.1 MG/DL (0.1-1.0); CALCIUM 8.6 MG/DL (8.5-10.1); CREATININE SERUM 1.6 MG/DL (0.60-1.30); MAGNESIUM 1.7 MG/DL (1.8-2.4); POTASSIUM 5.1 MMOL/L (3.6-5.0); TOTAL PROTEIN 6.4 GM/DL (6.4-8.2)
[2018-09-29 19:46] LABS: ERYTHROCYTE SEDIMENTATION RATE > 140 MM/HR (0-20)
[2018-09-29 19:50] LABS: PROTHROMBIN TIME PATIENT 13.1 SEC (12.2-14.7)
[2018-09-29] MEDS ORDERED: NS IV 1000 ML 1,000 ML IV ONE (20:03)
--- NOTE | 2018-09-29 20:03 | Diagnostic Imaging Report ---
INDICATION: Left foot pain 3 views of the left foot show an acute nondisplaced fracture of the proximal shaft of the second metatarsal. There is an old healed fracture of the midshaft of the fifth metatarsal. IMPRESSION: Acute nondisplaced fracture proximal shaft second metatarsal left foot. Dictated by: Dictated on workstation # [id number]
[2018-09-29] MEDS ORDERED: NS (IVPB) 100 ML ONE (20:12)
[2018-09-29] MEDS ORDERED: PIPERACILLIN/TAZO 4.5 GM VIAL (ZOSYN) IV ONE (20:12)
[2018-09-29] MEDS ORDERED: PIPERACILLIN SODIUM/TAZOBACTAM 4.5 GM in NS (IVPB) 100 ML IV ONE (20:15)
--- NOTE | 2018-09-29 20:32 | Diagnostic Imaging Report ---
PROCEDURE: US left lower extremity venous. TECHNIQUE: Multiple real-time grayscale images were obtained over the left lower extremity in various projections. Additional duplex Doppler and color Doppler images were also obtained. INDICATION: Left leg pain and swelling Veins in the left leg have good color filling and compressibility. There is normal spontaneous and augmented flow. IMPRESSION: Negative venous Doppler left leg Dictated by: Dictated on workstation # [id number]
[2018-09-29] MEDS ORDERED: ACETAMINOPHEN 500 MG TAB (TYLENOL) PO ONE (20:45)
[2018-09-29] MEDS ORDERED: VANCOMYCIN INJECTION 1,000 MG in NS (IVPB) 250 ML IV ONE (21:00)
[2018-09-29 22:01] LABS: BILIRUBIN,URINE NEGATIVE (NEGATIVE); CLARITY,URINE CLEAR; COLOR,URINE YELLOW; GLUCOSE, URINE (UA) 3+ (NEGATIVE); KETONES,URINE NEGATIVE (NEGATIVE); LEUKOCYTE ESTERASE ,URINE NEGATIVE (NEGATIVE); NITRITE,URINE NEGATIVE (NEGATIVE); PH,URINE 6 (5-9); PROTEIN,URINE 4+ (NEGATIVE); UROBILINOGEN,URINE NORMAL (NORMAL)
[2018-09-29] MEDS ORDERED: fentaNYL INJECTION 100 MCG/2 ML AMP IVP STA (22:05)
[2018-09-29 22:16] LABS: BACTERIA,URINE MODERATE /HPF
[2018-09-29 22:19] LABS: AMPHETAMINE SCREEN, URINE NEGATIVE (NEGATIVE); BARBITURATE SCREEN URINE NEGATIVE (NEGATIVE); BENZODIAZEPINES SCREEN URINE NEGATIVE (NEGATIVE); CANNABINOID SCREEN, URINE NEGATIVE (NEGATIVE); COCAINE SCREEN URINE NEGATIVE (NEGATIVE); METHADONE STAT NEGATIVE (NEGATIVE); METHAMPHETAMINE SCREEN URINE S NEGATIVE (NEGATIVE); OPIATE SCREEN URINE POSITIVE (NEGATIVE); OXYCODONE STAT NEGATIVE (NEGATIVE); PROPOXYPHENE STAT NEGATIVE (NEGATIVE); TRICYCLIC ANTIDEPRESSANTS SCRE NEGATIVE (NEGATIVE)
[2018-09-29 22:50] VITALS: BP 169/97
--- NOTE | 2018-09-29 22:50 | NUR ---
HUONG ARANGO Anderson admitted to room 422-1, with an admitting diagnosis of cellulitis left foot, 28 weeks gestation, IDDM, and chronic real insufficency, on 09/29/18 from ED via w/c, accompanied by ED staff. HUONG ARANGO introduced to surroundings, call light, bed controls, phone, TV, temperature control, lights, meal times, smoking policy, visitor policy, side rail policy, bathrooms and showers. Patient Rights given to patient in the handbook. HUONG ARANGO verbalizes understanding that [facility] is not responsible for the loss or damage to any personal effects or valuables that are kept in the patients posession during their hospitalization. The following Patient Care Plans were discussed with the pt: Discharge Planning, pain, impaired mobility, fluid volume deficit, impaired skin intergrity, activity intolerance, high risk injury, anxiety, and knowledge deficit. HUONG ARANGO verbalizes understanding of Interdisciplinary Patient Education. Patient and/or family were informed about the Rapid Response Team and its purpose.
[2018-09-29 23:00] VITALS: BP 150/84
[2018-09-29] MEDS ORDERED: NS IV 1000 ML 1,000 ML ONE (23:25)
--- NOTE | 2018-09-29 23:29 | NUR ---
Nurse in to do FHT's. heart tones 138. Pt states that she feels baby moving at this time.
[2018-09-29] MEDS ORDERED: CLON-445 PO (23:58)
[2018-09-29] MEDS ORDERED: NIFE60TA2 PO (23:58)
[2018-09-29] MEDS ORDERED: ASPI-586 PO (23:58)
[2018-09-30] VITALS (7 sets, daily range): BP systolic 126–162; BP diastolic 78–102
[2018-09-30] MEDS ORDERED: GABAPENTIN 400 MG (NEURONTIN) CAP ONE (00:30)
[2018-09-30] MEDS ORDERED: ASPIRIN E.C. 81 MG (ECOTRIN) TAB PO ONE (00:30)
[2018-09-30] MEDS ORDERED: cloNIDine 0.1 MG (CATAPRES) TAB ONE (00:30)
[2018-09-30] MEDS ORDERED: NIFEdipine ER 60 MG (PROCARDIA XL) TAB PO ONE (00:31)
[2018-09-30] MEDS ORDERED: fentaNYL INJECTION 100 MCG/2 ML AMP ONE (01:10)
[2018-09-30] MEDS ORDERED: fentaNYL INJECTION 100 MCG/2 ML AMP IV PRN (01:30)
[2018-09-30] MEDS: NS IV 1000 ML 1,000 ML IV SCH ×4 (01:40→22:18)
[2018-09-30] MEDS: PIPERACILLIN/TAZO 4.5 GM/NS 100 ML IV SCH ×6 (02:34→17:33)
[2018-09-30] MEDS: ACETAMINOPHEN 500 MG TAB (TYLENOL) PO PRN ×3 (02:37→17:32)
--- NOTE | 2018-09-30 04:00 | NUR ---
FHT obtained. FHT's 130-135.
[2018-09-30 05:41] LABS: BASOPHILS % (AUTO) 0 % (0-10); EOSINOPHILS # (AUTO) 0.2 10^3/uL (0.0-0.3); EOSINOPHILS % (AUTO) 3 % (0-10); HEMATOCRIT 23 % (35-52); HEMOGLOBIN 7.7 G/DL (11.5-16.0); LYMPHOCYTES # (AUTO) 1.3 X 10^3 (1.0-4.0); LYMPHOCYTES % (AUTO) 20 % (12-44); MEAN CORPUSCULAR HEMOGLOBIN 29 PG (25-34); MEAN CORPUSCULAR HGB CONC 34 G/DL (32-36); MEAN CORPUSCULAR VOLUME 86 FL (80-99); MEAN PLATELET VOLUME 11.4 FL (7.4-10.4); MONOCYTES # (AUTO) 0.4 X 10^3 (0.0-1.0); MONOCYTES % (AUTO) 6 % (0-12); NEUTROPHILS # (AUTO) 4.5 X 10^3 (1.8-7.8); NEUTROPHILS % (AUTO) 71 % (42-75); PLATELET COUNT 177 10^3/uL (130-400); RED CELL DISTRIBUTION WIDTH 14.7 % (10.0-14.5); WHITE BLOOD COUNT 6.4 10^3/uL (4.3-11.0)
[2018-09-30] MEDS ORDERED: HYDROcodone/APAP 5 MG/325 MG (LORTAB) TAB ONE (05:44)
[2018-09-30] MEDS: HYDROcodone/APAP 5 MG/325 MG (LORTAB) TAB PO PRN ×2 (05:49→12:59)
[2018-09-30 05:58] LABS: BILIRUBIN,TOTAL 0.1 MG/DL (0.1-1.0); CALCIUM 7.5 MG/DL (8.5-10.1); CREATININE SERUM 1.6 MG/DL (0.60-1.30); POTASSIUM 4.6 MMOL/L (3.6-5.0); TOTAL PROTEIN 5.3 GM/DL (6.4-8.2)
[2018-09-30] MEDS ORDERED: inSUlin ASPART (NovoLOG) 1 UNIT/0.01 ML (CHARGE PER UNIT) SC SCH (06:00)
--- NOTE | 2018-09-30 06:41 | ED Lower Extremity ---
General Chief Complaint: Lower Extremity Stated Complaint: CELLULITIS FT,FX L 2ND METATARSAL,28 WKS PREG,IDDM Nursing Triage Note: AMB TO ROOM C/O PAIN AND SWELLING IN L FOOT CONCERN SHE MAY HAVE GOUT. IS APX 28 WEEKS PREG. Nursing Sepsis Screen: No Definite Risk Source: patient (DIFFICULT HISTORIAN--RAMBLES ON NON-STOP, DIFFICULT TO KEEP ON SUBJECT) History of Present Illness Date Seen by Provider: Sep 29, 2018 Time Seen by Provider: 18:14 Initial Comments PT ARRIVES VIA POV C/O PAIN, REDNESS AND SWELLING TO LEFT FOOT SINCE SUNDAY ADAMANTLY DENIES ANY INJURY HAS HAD SUBJECTIVE FEVER, SWEATS AND CHILLS PT STATES SHE HAS NOT TAKEN ANYTHING FOR PAIN AT ANY TIME PT IS 28 WEEKS PT IS POORLY CONTROLLED INSULIN DEPENDENT DIABETIC, WITH LONG HISTORY OF NON- COMPLIANCE PT IS G 11, P 2, AB 10. PT GOES TO [facility], AND HAS SEEN DR. JOHNSON AT SOME POINT AND HAS BEEN REFERRED TO FOR MANAGEMENT OF . PT STATES SHE GOES TO EVERY 2 WEEKS. WAS THERE ON Sunday09/27/18 FOR LAB WORK + ACTIVE MOVEMENT NO BLEEDING NO ABDOMINAL PAIN NO URINARY SYMPTOMS NO CHEST PAIN OR SHORTNESS OF BREATH PT HAS NEUROPATHY IN HER FEET, WITH NO CHANGE IN THOSE SYMPTOMS STATES BLOOD GLUCOSE WAS 176 JUST PRIOR TO ARRIVAL PT STATES SHE HAD FRACTURED HER RIGHT FOOT/GREAT TOE IN 2017 AND ENDED UP HAVING OSTEOMYELITIS AND HAS HAD RIGHT GREAT AND SECOND TOE AMPUTATED. PT HAS HAD 23 VISITS HERE SINCE SHE MOVED HERE IN 2017. PCP: [facility], HUMAIRA SMITH Allergies and Home Medications Allergies Coded Allergies: gluten (Verified Allergy, Unknown, 09/24/17) Home Medications Acetaminophen 500 Mg Tablet, 500-1,000 MG PO Q6H PRN for PAIN-MILD, (Reported) Aspirin 81 Mg Tablet.dr, 81 MG PO BID, (Reported) Clonidine HCl 0.1 Mg Tab.er.12h, 0.2 MG PO BID, (Reported) Ferrous Sulfate 325 Mg Tablet, 325 MG PO DAILY, (Reported) Gabapentin 800 Mg Tablet, 800 MG PO QID, (Reported) Insulin Lispro 100 Unit/1 Ml Insuln.pen, SQ AC, (Reported) Nifedipine 60 Mg Tab.er.24, 60 MG PO BID, (Reported) Vit W-Ca,Fe,FA(<1 mg) 1 Each Tablet, 1 TAB PO DAILY, (Reported) PLUS FOLIC ACID Patient Home Medication List Home Medication List Reviewed: Yes Review of Systems Constitutional: see HPI, chills, diaphoresis, fever EENTM: no symptoms reported Respiratory: no symptoms reported; No cough Cardiovascular: no symptoms reported; No chest pain Gastrointestinal: no symptoms reported; No nausea, No vomiting Genitourinary: No dysuria : Yes Control/STD Prophylaxis: None Musculoskeletal: see HPI Skin: see HPI Psychiatric/Neurological: See HPI, Pre-Existing Deficit Past Xedqqzw-Tkshac-Lugytt Hx Patient Social History Alcohol Use: Past History (HISTORY OF ABUSE, CLAIMS NONE SINCE DX WITH ) Recreational Drug Use: Yes (EXTENSIVE HISTORY OF DRUG ABUSE, WITH HX OF IV USE- -WILL NOT STATE WHAT DRUGS SHE USED. ) Drug of Choice: + IV DRUG USE, EXTENSIVE--WILL NOT STATE WHAT DRUGS SHE HAS USED. Smoking Status: Current Everyday Smoker (2 PPD) Type Used: Cigarettes 2nd Hand Smoke Exposure: No Recent Foreign Travel: No Contact w/Someone Who Travel: No Recent Infectious Disease Expo: No Recent Hopitalizations: No Immunizations Up To Date Tetanus Booster (TDap): Unknown PED Vaccines UTD: No Date of Influenza Vaccine: Jul 03, 2016 Seasonal Allergies Seasonal Allergies: No Past Medical History Surgeries: Yes (" OPEN HEART SX AN INFANT"; RIGHT GREAT AND SECOND TOE AMPUTATION; X2) Cardiac, Section, Orthopedic Respiratory: Yes (TOBACCOISM) Cardiac: Yes (CARDIAC SURGERY AN --HAS NO IDEA WHAT KIND OF HEART PROBLEMS SHE HAD--SCAR IS TO LEFT LATERAL CHEST. STATES SHE WAS 3 MONTHS PREMATURE. ) Hypertension Neurological: Yes (SEIZURES R/T DIABETES) Neuropathy, Seizure Disorder : Yes (28 WEEKS) Hx : 13 Hx Para: 2 Hx Total # of Abortions (Sp): 10 Reproductive Disorders: No Female Reproductive Disorders: Denies Sexually Transmitted Disease: No HIV/AIDS: No Genitourinary: Yes Bladder Infection, Renal Failure, UTI-Chronic Gastrointestinal: Yes (CELIAC DISEASE; HEPATITIS C--NO TREATMENT) Hepatitis Musculoskeletal: Yes (RIGHT FOOT FRACTURE WITH SUBSEQUENT OSTEOMYELITIS AND AMPUTATION OF RIGHT TOES 1 AND 2. ) Fractures Endocrine: Yes (PT HAS INSULIN PUMP) Diabetes, Insulin dep HEENT: No Loss of Vision: Bilateral Hearing Impairment: Denies Cancer: No Psychosocial: Yes (POLYSUBSTANCE ABUSE) Anxiety, Depression Integumentary: Yes (MRSA) Blood Disorders: Yes (HEP C+, ANEMIA) Adverse Reaction/Blood Tranf: No Family Medical History FH: COPD (chronic obstructive pulmonary disease) 19 FATHER FH: congestive heart failure 19 FATHER FH: liver cancer 19 MOTHER No Pertinent Family Hx Physical Exam Vital Signs Vital Signs - First Documented 09/29/18 18:03 Temp 95.1 Pulse 90 Resp 18 B/P (MAP) 167/107 (127) Pulse Ox 99 Capillary Refill : Less Than 3 SecondsLess Than 3 Seconds Height, Weight, BMI Height: 5'6.00" Weight: 193lbs. 4.0oz. 87.696049ww; 31.2 BMI Method:Stated General Appearance: WD/WN, no apparent distress, other (CONSTANT MOVEMENTS, TALKS NON-STOP, RAMBLES ON AT LENGTH, DIFFICULT TO KEEP ON SUBJECT. ) Cardiovascular: regular rate, rhythm, no murmur Respiratory: normal breath sounds, no respiratory distress, no accessory muscle use Gastrointestinal: non tender, other (GRAVID UTERUS) Back: no CVA tenderness Hips: bilateral hip non-tender, bilateral hip normal inspection Legs: bilateral leg non-tender, bilateral leg normal inspection Knees: bilateral knee non-tender, bilateral knee normal inspection Ankles: right ankle non-tender, right ankle normal inspection; left ankle other (MODERATE SWELLING, TENDERNESS AND ERYTHEMA TO RIGHT ANKLE) Feet: left foot other (MODERATE SWELLING, ERYTHEMA, WARMTH AND TENDERNESS TO ENTIRE LEFT FOOT. PT IS WEARING HOUSE SLIPPERS, BOTTOM OF FEET VERY DIRTY, FEW SUPERFICIAL ABRASIONS TO BOTTOM OF FEET, WITHOUT OBVIOUS SOURCE OF INFECTION NO AREAS OF FLUCTUANCE OR DRAINAGE. RIGHT TOES 1 AND 2 MISSING. 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, no motor/sensory deficits, alert, oriented x 3 Skin: normal color, warm/dry, other ( ABOVE) Progress/Results/Core Measures Results/Orders Lab Results Laboratory Tests Test 09/29/18 18:33 09/29/18 19:01 Range/Units Glucometer 203 H 70-110 MG/DL White Blood Count 8.7 4.3-11.0 10^3/uL Red Blood Count 3.14 L 4.35-5.85 10^6/uL Hemoglobin 9.0 L 11.5-16.0 G/DL Hematocrit 27 L 35-52 % Mean Corpuscular Volume 84 80-99 FL Mean Corpuscular Hemoglobin 29 25-34 PG Mean Corpuscular Hemoglobin Concent 34 32-36 G/DL Red Cell Distribution Width 14.4 10.0-14.5 % Platelet Count 205 130-400 10^3/uL Mean Platelet Volume 11.7 H 7.4-10.4 FL Neutrophils (%) (Auto) 69 42-75 % Lymphocytes (%) (Auto) 20 12-44 % Monocytes (%) (Auto) 9 0-12 % Eosinophils (%) (Auto) 2 0-10 % Basophils (%) (Auto) 1 0-10 % Neutrophils # (Auto) 6.0 1.8-7.8 X 10^3 Lymphocytes # (Auto) 1.7 1.0-4.0 X 10^3 Monocytes # (Auto) 0.8 0.0-1.0 X 10^3 Eosinophils # (Auto) 0.2 0.0-0.3 10^3/uL Basophils # (Auto) 0.1 0.0-0.1 10^3/uL Erythrocyte Sedimentation Rate > 140 H 0-20 MM/HR Prothrombin Time 13.1 12.2-14.7 SEC INR Comment 1.0 0.8-1.4 Activated Partial Thromboplast Time 28 24-35 SEC Sodium Level 134 L 135-145 MMOL/L Potassium Level 5.1 H 3.6-5.0 MMOL/L Chloride Level 109 H 98-107 MMOL/L Carbon Dioxide Level 16 L 21-32 MMOL/L Anion Gap 9 5-14 MMOL/L Blood Urea Nitrogen 26 H 7-18 MG/DL Creatinine 1.60 H 0.60-1.30 MG/DL Estimat Glomerular Filtration Rate 37 BUN/Creatinine Ratio 16 Glucose Level 185 H 70-105 MG/DL Lactic Acid Level 0.58 0.50-2.00 MMOL/L Calcium Level 8.6 8.5-10.1 MG/DL Corrected Calcium 9.9 8.5-10.1 MG/DL Magnesium Level 1.7 L 1.8-2.4 MG/DL Total Bilirubin 0.1 0.1-1.0 MG/DL Aspartate Amino Transf (AST/SGOT) 31 5-34 U/L Alanine Aminotransferase (ALT/SGPT) 36 0-55 U/L Alkaline Phosphatase 172 H 40-136 U/L C-Reactive Protein High Sensitivity 2.47 H 0.00-0.50 MG/DL Total Protein 6.4 6.4-8.2 GM/DL Albumin 2.4 L 3.2-4.5 GM/DL Serum Alcohol < 10 <10 MG/DL My Orders Orders - KAUSHAL LOUIS DO Saline Lock/Iv-Start (09/29/18 18:24) Heart Tones (09/29/18 18:24) Monitor-Rhythm Ecg Trace Only (09/29/18 18:24) Cbc With Automated Diff (09/29/18 18:24) Comprehensive Metabolic Panel (09/29/18 18:24) Hs C Reactive Protein (09/29/18 18:24) Erythrocyte Sedimentation Rate (09/29/18 18:24) Drug Screen Stat (Urine) (09/29/18 18:24) Lactic Acid Analyzer (09/29/18 18:24) Magnesium (09/29/18 18:24) Protime With Inr (09/29/18 18:24) Partial Thromboplastin Time (09/29/18 18:24) Ua Culture If Indicated (09/29/18 18:24) Blood Culture (09/29/18 18:24) Foot, Left, 3 Views (09/29/18 18:24) Us Venous Lower Ext Lt (09/29/18 19:01) Saline Lock/Iv-Start (09/29/18 20:03) Ns Iv 1000 Ml (Sodium Chloride 0.9%) (09/29/18 20:03) Saline Lock/Iv-Start (09/29/18 20:03) Remove Rings In Anticipation O (09/29/18 20:03) Piperacillin Sodium/Tazobactam (Zosyn Vi (09/29/18 20:15) Ns (Ivpb) (Sodium Chloride 0.9% Ivpb Bag (09/29/18 20:12) Piperacillin Sodium/Tazobactam (Zosyn Vi (09/29/18 20:12) Medications Given in ED Current Medications Medications Dose Ordered Sig/Dipti Route Start Time Stop Time Status Last Admin Dose Admin Piperacillin Sod/ Tazobactam Sod 4.5 gm/Sodium Chloride 100 ml @ 200 mls/hr ONCE ONCE IV 09/29/18 20:15 09/29/18 20:44 DC 09/29/18 20:19 200 MLS/HR Sodium Chloride 1,000 ml @ 0 mls/hr Q0M ONCE IV 09/29/18 20:03 09/29/18 20:20 DC 09/29/18 20:18 999 MLS/HR Vital Signs/I&O 09/29/18 09/29/18 18:03 19:01 Temp 95.1 Pulse 90 Resp 18 B/P (MAP) 167/107 (127) Pulse Ox 99 Blood Pressure Mean: 122 FSBG Bedside Testing Finger Stick Blood Glucose: 203 Blood Glucose Action Taken: RN notified Progress Progress Note : Progress Note PT DID NOT COMPLAINT OF SIGNIFICANT PAIN UNTIL SHE WAS INFORMED OF FRACTURE, THEN BEGAN WAILING AND DEMANDING PAIN MEDICATION. URINE DRUG SCREEN IS POSITIVE FOR OPIATES--THIS WAS OBTAINED PRIOR TO PT BEING GIVEN ANY PAIN MEDICATIONS IN ER. PT CLAIMS SHE HAS NOT TAKEN ANYTHING FOR PAIN. PT CONTINUES TO CLAIM SHE DOES NOT RECALL ANY INJURY TO HER FOOT. NO DETERIORATION IN PT'S CONDITION DURING ER STAY FHR 142. Diagnostic Imaging Comments XRAYS RIGHT FOOT--ACUTE FRACTURE LEFT 2ND PROXIMAL METATARSAL, OLD/HEALING FRACTURE OF 5TH METATARSAL. PER RADIOLOGIST REPORT AT 2019 VENOUS DOPPLER/ULTRASOUND OF LEFT LEG--NO DVT, PER TECH REPORT AT 2019 AND PER RADIOLOGIST REPORT Reviewed: Reviewed by Me Departure Communication (Admissions) 2019--SPOKE WITH DR. DIAS. ACCEPTS PT FOR ADMIT. ADVISES TO CONSULT DR. JOHNSON/ OB ANCHORMAN AND DR. GARZA, [employer] DEVELOPER. 2027--SPOKE WITH DR. JOHNSON, HE IS OUT OF TOWN. 2036--SPOKE WITH DR. BLISS, OB ANCHORMAN. HE IS IN AGREEMENT TO ZOSYN + VANCOMYCIN TREATMENT, WILL OBTAIN OB ULTRASOUND IN AM Impression Primary Impression: Cellulitis of left foot Additional Impressions: Closed fracture of second metatarsal bone of left foot IDDM (insulin dependent diabetes mellitus) 28 weeks gestation of UTI (urinary tract infection) Anemia Chronic renal insufficiency Peripheral neuropathy HX OF POLYSUBSTANCE ABUSE, INCLUDING IV DRUG USE HX OF HEPATITIS C--UNTREATED Electrolyte imbalance HTN (hypertension) Disposition: ADMITTED INPATIENT Condition: Improved Departure-Patient Inst. Referrals: PEEWEE JOHNSON DO (PCP) Primary Care Physician Patient Instructions: Cellulitis and Erysipelas (Skin Infections) KAUSHAL LOUIS DO Sep 30, 2018 06:41
--- NOTE | 2018-09-30 07:41 | NUR ---
PTD VANCOMYCIN LABS: SCR 1.6 (ESTIMATED CRCL ADJUSTED BODY WEIGHT ~ 55) PLAN: VANCOMYCIN 1 GRAM WAS GIVEN LAST NIGHT AT 2122, WE WILL START VANCOMYCIN 1,250MG IV Q 12 HOURS AND CHECK A TROUGH LEVEL ON 10/01 @ 0700, HOLDING IF LEVEL IS GREATER THAN 20, AND IF SCR IMPROVES MAY NEED TO INCREASE DOSE/FREQUENCY. WILL MONITOR LEVELS/SCR CLOSELY.
[2018-09-30] MEDS ORDERED: FLU QUADRIvalent (5+ YOA) 2018-2019 (AFLURIA) 0.5 ML IM ONE (07:45)
[2018-09-30] MEDS: VANCOMYCIN 1250 MG/NS 250 ML IVPB IV SCH ×4 (07:56→19:50)
--- NOTE | 2018-09-30 08:08 | NUR ---
FHT VIA DOPPLER AT 145. PT STATES SHE IS FEELING MOVEMENTS.
[2018-09-30] MEDS: ASPIRIN 81 MG CHEW (CHILDREN'S ASA) PO SCH (08:41)
[2018-09-30] MEDS: cloNIDine 0.2 MG (CATAPRES) TAB PO SCH ×2 (08:41→20:14)
[2018-09-30] MEDS: NIFEdipine ER 60 MG (PROCARDIA XL) TAB PO SCH ×2 (08:41→20:16)
[2018-09-30] MEDS: GABAPENTIN 400 MG (NEURONTIN) CAP PO SCH ×4 (08:41→20:16)
[2018-09-30] MEDS ORDERED: NON-FORMULARY MEDICATION 1 EA EA (Gabapentin 800 MG) PO SCH (09:00)
[2018-09-30] MEDS ORDERED: NON-FORMULARY MEDICATION 1 EA EA (Aspirin (Aspir 81) 81 MG) PO SCH (09:00)
[2018-09-30] MEDS ORDERED: NIFEDIPINE 60 MG PO SCH (09:00)
[2018-09-30] MEDS ORDERED: CLONIDINE HCL 0.2 MG PO SCH (09:00)
[2018-09-30] MEDS ORDERED: INSU100I10 SC (09:29)
[2018-09-30] MEDS ORDERED: FURO20TA4 PO (09:29)
[2018-09-30] MEDS ORDERED: CYCL10TA9 PO (09:29)
[2018-09-30] MEDS ORDERED: PREN-8 PO (09:29)
[2018-09-30] MEDS ORDERED: BUSP30TA2 PO (09:29)
[2018-09-30] MEDS ORDERED: PRAM0.257 PO (09:29)
--- NOTE | 2018-09-30 09:36 | NUR ---
WENT OVER THE EXT MED HX WITH THE PATIENT AND SHE VERIFIED HOW SHE TAKES EACH MEDICATION. ACCORDING TO THE EXT MED HX HER BUSPIRONE 30MG WAS FILLED #30 FOR 30 DAYS HOWEVER SHE STATES THIS WAS A MISTAKE AND SHE WILL HAVE THE DRJazlyn CORRECT IT, SHE IS TAKING 30MG TID. SHE TAKES TYLENOL PRN, ASPIRIN 81MG BID, IRON DAILY AND A VITAMIN OTC.
[2018-09-30] MEDS ORDERED: CLON0.2T PO (09:38)
[2018-09-30] MEDS: inSUlin ASPART (NovoLOG) 1 UNIT/0.01 ML (CHARGE PER UNIT) SC SCH ×5 (10:38→23:08)
--- NOTE | 2018-09-30 10:51 | Progress Note-Standard ---
Standard Progress Note Progress Notes/Assess & Plan Date Seen by a Provider: Sep 30, 2018 Time Seen by a Provider: 10:30 Progress/Assessment & Plan CONSULTATION Re: patient with left foot fracture and cellulitis. Also, Ms. Galvin is a noncompliant insulin -requiring diabetic. Subjective: I was asked to see Ms. Galvin secondary to her being 28 weeks . She was admitted secondary to having a left foot fracture and cellulitis. She admits to breaking her foot on Sunday while "hopping a fence", but didn't realize it. She does admit to having two toes amputated on her right foot, which she states is related to her diabetes. PmHx: Diabetes, Kidney Disease, Endometriosis PsHx: Right toes amputated, x 2, Open heart surgery as a ( patient unsure of problem or type of surgery) Medications: "pain pills" and Insulin Allergies: NKDA PObHx: [id number]--ckw C-Sections, 10 spontaneous abortions (around 8-9 weeks, none requiring a D & C) PGynHx: Menses at age 11 with a "regular" cycle lasting 3-7 days with medium flow. Denies STD, but admits to having had an abnormal Pap Smear, but denies any follow up or treatment. Admits to being diagnosed with Endometriosis by "biopsy". Social Hx: Admits to being in the process of quitting tobacco, at the moment, only smoking 1 cigarette daily. Prior to , smoking 1 ppd. Denies alcohol use. 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 She admits to being single. Objective: Vital signs stable Heart: Regular rate and rhythm, no audible murmur Lungs: Clear to auscultation bilaterally Abdomen: Good bowel sounds, no rebound or guarding, gravid, FHt 30 cm Extremities: Bilateral pitting edema up to knee. Left foot is extremely swollen, too Assessment: IUP at 28 weeks 2. Fracture Left Foot 3. Left Foot Cellulitis 4. Diabetes 5. History of Substance Abuse 6. Tobacco Abuse Plan: From an Obstetrical point of view, periodic (every two weeks) Biophysical Profile. While in the hospital regular doppled heart tones. Tighter control of blood sugars. She is being seen at [facility] for her obstetrical care, she just needs to keep her appointments once she is discharged. Final Diagnosis IUP at 28 weeks Diabetes Fracture Left Foot Cellulitis Left Foot History of Substance Abuse Tobacco Abuse Focused Exam Lactate Level 09/29/18 19:01: Lactic Acid Level 0.58 ASHER BLISS DO Sep 30, 2018 10:51
--- NOTE | 2018-09-30 11:34 | Diagnostic Imaging Report ---
INDICATION: Electrolyte imbalance, diabetes. TECHNIQUE: Multiple real-time grayscale images were obtained over the gravid uterus. COMPARISON: 05/17/2018. FINDINGS: The previous exam of 05/17/2018 noted a single live intrauterine at approximately 8 weeks 5 days gestation. On this exam, the fetus is again visualized. The fetus is cephalic in presentation. heart motion was noted and a rate of 134 BPM was recorded. There were no abnormalities identified. The biophysical profile score was 6/8 as breathing could not be identified. The placenta is anterior and there is no previa. The amniotic fluid volume is within normal limits. The growth parameters have progressed as expected since the prior exam, tending towards the low side of normal. The estimated weight is in the 14th percentile. Biometrical measurements are as follows: Biparietal 7.16 cm, age 28 weeks 6 days. Head circumference 26.44 cm, age 28 weeks 6 days. Abdominal circumference 23.95 cm, age 28 weeks 2 days. Femur length 4.63 cm, age 25 weeks 3 days. Sonographic estimate age: 27 weeks 6 days. Sonographic estimated date of delivery: 12/24/2018. Estimated Weight: 1063 gm (+/- 155 gm). LMP percentile: 14%. heart rate: 134 beats per minute. number: 1 of 1. IMPRESSION: 1. There is a single live fetus at approximately 28 weeks gestation +/-1 week. The EDC remains December 22, 2018. 2. There were no abnormalities identified. However the biophysical profile score is only 6/8 as breathing could not be identified. 3. The growth parameters have progressed as expected since the prior exam, tending towards the low side of normal. The estimated weight is in the 14th percentile. 4. If further evaluation of the growth is desired, then a short-term (2-4 week) followup ultrasound exam should be obtained. 5. These results were called to Najma Jo M.D., by our sonologist. CRITICAL FINDING Dictated by: Dictated on workstation # [id number]
--- NOTE | 2018-09-30 11:39 | History & Physicial (CHS) ---
HPI History of Present Illness: This is a 33 yo female with uncontrolled DM Type 1 since the age of 11. Pt is 28 wk with an PRIYANK of 12/22/18. Pt has seen Dr. Adame for her OB care and was referred to and has been managed by [facility] Dr. Valdes for DM, CKD and PIH. Pt reports that Sunday09/27/18 she hopped a low fence while taking a short cut and landed on her left foot (pt was trying to protect her R foot due to a hx of osteo s/p amputation of 2 toes in 06/2018). She report she thought she sprained her foot/ankle. She then presented to the ER yesterday with c/o of increased pain and redness. She reports warmth to the foot. Denies fever. BS reported was 170's prior to coming to the ER. Pt was diagnosed with an acute non-displaced fracture of the 2nd metatarsal of the L foot and cellulitis. She was started on IV Zosyn and Vancomycin. Improvement in redness and warmth. Pt reports significant pain in the foot. She describe the pain as burning but also reports that it is exquisitely tender to the touch. She reports she "barely" could walk on it since Sunday. Pt has been afebrile since admission. 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 Patients Allergies have been reviewed. Allergies Coded Allergies: gluten (Verified Allergy, Unknown, 09/24/17) [id number] Hx Patient Social History Alcohol Use: Past History (HISTORY OF ABUSE, CLAIMS NONE SINCE DX WITH ) Recreational Drug Use: Yes (EXTENSIVE HISTORY OF DRUG ABUSE, WITH HX OF IV USE- -WILL NOT STATE WHAT DRUGS SHE USED. ) Drug of Choice: + IV DRUG USE, EXTENSIVE--WILL NOT STATE WHAT DRUGS SHE HAS USED. Smoking Status: Current Everyday Smoker (2 PPD) Type Used: Cigarettes 2nd Hand Smoke Exposure: No Recent Foreign Travel: No Contact w/other who traveled: No Recent Hopitalizations: No Recent Infectious Disease Expo: No Immunizations Up To Date Tetanus Booster (TDap): Unknown Date of Influenza Vaccine: Jul 03, 2016 Past Medical History PMHx: DM Type 1 Anxiety/depression Substance abuse Hepatitis C Neuropathy CKD Stage 3 PSurgHx: Right first and second toe distal amputation Heart surgery as a x2 Family Medical History Significant Family History: No Pertinent Family Hx Family History: FH: COPD (chronic obstructive pulmonary disease) 19 FATHER FH: congestive heart failure 19 FATHER FH: liver cancer 19 MOTHER Review of Systems (CHC) Constitutional: see HPI Reviewed Test Results Reviewed Test Results Lab Laboratory Tests 09/29/18 18:33: Glucometer 203H 09/29/18 19:01: White Blood Count 8.7, Red Blood Count 3.14L, Hemoglobin 9.0L, Hematocrit 27L, Mean Corpuscular Volume 84, Mean Corpuscular Hemoglobin 29, Mean Corpuscular Hemoglobin Concent 34, Red Cell Distribution Width 14.4, Platelet Count 205, Mean Platelet Volume 11.7H, Neutrophils (%) (Auto) 69, Lymphocytes (%) (Auto) 20 , Monocytes (%) (Auto) 9, Eosinophils (%) (Auto) 2, Basophils (%) (Auto) 1, Neutrophils # (Auto) 6.0, Lymphocytes # (Auto) 1.7, Monocytes # (Auto) 0.8, Eosinophils # (Auto) 0.2, Basophils # (Auto) 0.1, Erythrocyte Sedimentation Rate > 140H, Prothrombin Time 13.1, INR Comment 1.0, Activated Partial Thromboplast Time 28, Sodium Level 134L, Potassium Level 5.1H, Chloride Level 109H, Carbon Dioxide Level 16L, Anion Gap 9, Blood Urea Nitrogen 26H, Creatinine 1.60H, Estimat Glomerular Filtration Rate 37, BUN/Creatinine Ratio 16 , Glucose Level 185H, Lactic Acid Level 0.58, Calcium Level 8.6, Corrected Calcium 9.9, Magnesium Level 1.7L, Total Bilirubin 0.1, Aspartate Amino Transf ( AST/SGOT) 31, Alanine Aminotransferase (ALT/SGPT) 36, Alkaline Phosphatase 172H , C-Reactive Protein High Sensitivity 2.47H, Total Protein 6.4, Albumin 2.4L, Serum Alcohol < 10 09/29/18 21:55: Urine Color YELLOW, Urine Clarity CLEAR, Urine pH 6, Urine Specific [place] 1.015L, Urine Protein 4+, Urine Glucose (UA) 3+H, Urine Ketones NEGATIVE, Urine Nitrite NEGATIVE, Urine Bilirubin NEGATIVE, Urine Urobilinogen NORMAL, Urine Leukocyte Esterase NEGATIVE, Urine RBC (Auto) 2+H, Urine RBC 5-10H, Urine WBC 10 -25H, Urine Squamous Epithelial Cells 10-25H, Urine Renal Epithelial Cells NONE , Urine Crystals NONE, Urine Bacteria MODERATEH, Urine Casts PRESENT, Urine Hyaline Casts 5-10H, Urine Mucus NEGATIVE, Urine Culture Indicated YES, Urine Opiates Screen POSITIVEH, Urine Oxycodone Screen NEGATIVE, Urine Methadone Screen NEGATIVE, Urine Propoxyphene Screen NEGATIVE, Urine Barbiturates Screen NEGATIVE, Ur Tricyclic Antidepressants Screen NEGATIVE, Urine Phencyclidine Screen NEGATIVE, Urine Amphetamines Screen NEGATIVE, Urine Methamphetamines Screen NEGATIVE, Urine Benzodiazepines Screen NEGATIVE, Urine Cocaine Screen NEGATIVE, Urine Cannabinoids Screen NEGATIVE 09/30/18 05:23: Glucometer 438*H 09/30/18 05:25: White Blood Count 6.4, Red Blood Count 2.66L, Hemoglobin 7.7L, Hematocrit 23L, Mean Corpuscular Volume 86, Mean Corpuscular Hemoglobin 29, Mean Corpuscular Hemoglobin Concent 34, Red Cell Distribution Width 14.7H, Platelet Count 177, Mean Platelet Volume 11.4H, Neutrophils (%) (Auto) 71, Lymphocytes (%) (Auto) 20 , Monocytes (%) (Auto) 6, Eosinophils (%) (Auto) 3, Basophils (%) (Auto) 0, Neutrophils # (Auto) 4.5, Lymphocytes # (Auto) 1.3, Monocytes # (Auto) 0.4, Eosinophils # (Auto) 0.2, Basophils # (Auto) 0.0, Sodium Level 134L, Potassium Level 4.6, Chloride Level 111H, Carbon Dioxide Level 15L, Anion Gap 8, Blood Urea Nitrogen 26H, Creatinine 1.60H, Estimat Glomerular Filtration Rate 37, BUN/ Creatinine Ratio 16, Glucose Level 431*H, Calcium Level 7.5L, Corrected Calcium 9.1, Total Bilirubin 0.1, Aspartate Amino Transf (AST/SGOT) 28, Alanine Aminotransferase (ALT/SGPT) 30, Alkaline Phosphatase 150H, Total Protein 5.3L, Albumin 2.0L 09/30/18 10:37: Glucometer 294H 09/30/18 14:50: Glucometer 180H 09/30/18 18:07: Glucometer 224H Radiology Date of Exam: 09/29/18 FOOT, LEFT, 3 VIEWS INDICATION: Left foot pain 3 views of the left foot show an acute nondisplaced fracture of the proximal shaft of the second metatarsal. There is an old healed fracture of the midshaft of the fifth metatarsal. IMPRESSION: Acute nondisplaced fracture proximal shaft second metatarsal left foot. Physical Exam-([facility]) Physical Exam Vital Signs VS - Last 72 Hours, by Label 09/29/18 09/29/18 09/29/18 09/29/18 18:03 19:01 22:44 22:50 Temp 95.1 97.5 Pulse 90 102 Resp 18 18 B/P (MAP) 167/107 (127) 169/97 (121) Pulse Ox 99 99 O2 Delivery Room Air 09/29/18 09/29/18 09/30/18 09/30/18 22:50 23:00 00:12 00:47 Temp 97.5 98.4 97.4 Pulse 102 100 99 100 Resp 18 22 20 B/P (MAP) 169/97 150/84 (106) 162/102 (122) Pulse Ox 99 98 99 O2 Delivery Room Air Room Air Room Air 09/30/18 09/30/18 09/30/18 09/30/18 01:00 04:04 07:00 08:00 Temp 97.8 Pulse 89 89 86 Resp 20 B/P (MAP) 137/90 (106) Pulse Ox 99 98 O2 Delivery Room Air Room Air 09/30/18 09/30/18 09/30/18 09/30/18 08:00 12:00 13:00 16:55 Temp 97.6 98.4 97.4 Pulse 97 104 102 88 Resp 20 20 16 B/P (MAP) 132/86 (101) 131/85 (100) 126/84 (98) Pulse Ox 98 97 98 O2 Delivery Room Air Room Air Room Air Capillary Refill : Less Than 3 SecondsLess Than 3 Seconds General Appearance: WD/WN, no apparent distress HEENT: PERRL/EOMI Respiratory: lungs clear, normal breath sounds, no respiratory distress, no accessory muscle use Cardiovascular: regular rate, rhythm Gastrointestinal: other (gravid uterus) Extremities: No inflammation; swelling (+2 pitting edema delfino LE), other (no erythema noted; exam of foot limited by patient's pain complaint from lower leg to toes) Skin: normal color, warm/dry Assessment/Plan Assessment/Plan Admission Status: Inpatient Order (span 2 midnights) Reason for Inpatient Admission: Will need at least 2 days of antibiotic treatment for cellulitis in a patient with uncontrolled diabetes and . (1) Cellulitis Status: Acute Assessment & Plan: - admitted 09/19/18 - IV Zosyn and Vancomycin - wbc wnl, afebrile, mild elevation in crp; blood culture negative thus far - erythema to the foot improved since admission - pain appear out of proportion to clinical picture especially in light of the fact that patient was ambulating on the foot prior to coming to the ER. Qualifiers: (2) Diabetes type 1, uncontrolled Status: Chronic Assessment & Plan: - pt reports that she took her usual dose of Lantus 24U last night - BS running 400's this am. - resumed home Humalog of 6U with meals plus SSI A; will treat with Levemir 24U qhs Qualifiers: Qualified Codes: E10.65 - Type 1 diabetes mellitus with hyperglycemia (3) CKD (chronic kidney disease) stage 3, GFR 30-59 ml/min Status: Chronic Assessment & Plan: - Cr. 1.6; baseline from clinic record 05/2017 was 1.7 - unable to use JOSEPHINE-I secondary to - managed by specialists at (4) Bilateral leg edema Status: Acute Assessment & Plan: - venous doppler negative - likely secondary to and CKD - resume home Lasix 20mg daily (5) Fracture of second metatarsal bone of left foot Status: Acute Assessment & Plan: - pt unaware of foot injury until x-ray was done in the ER - pain out of proportion for fracture, encompassing entire foot, ankle and lower let Qualifiers: Qualified Codes: S92.325A - Nondisplaced fracture of second metatarsal bone , left foot, initial encounter for closed fracture (6) Anemia Status: Chronic Assessment & Plan: - secondary to CKD and - increase home iron to BID Qualifiers: Qualified Codes: D50.8 - Other iron deficiency anemias (7) 28 weeks gestation of Assessment & Plan: - seen in consultation by OB - OB US obtained (8) induced hypertension Status: Chronic Assessment & Plan: - continue home clonidine and Procardia Qualifiers: Qualified Codes: O13.3 - Gestational [-induced] hypertension without significant proteinuria, third trimester (9) Diabetic 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 Status: Chronic Assessment & Plan: - resume home Neurontin Qualifiers: Qualified Codes: E10.42 - Type 1 diabetes mellitus with diabetic polyneuropathy (10) Hx of substance abuse Status: Chronic Assessment & Plan: - pt reports prior hx of drug use; reports she has seen Ray at [facility] as ATS Counselor in the past but does not need to continue to see him as she is clean - UDS was positive for opiates, pt reports she took old pain pill from when he had an infection after her amputation in June - per her ext med hx pt had rx for hydrocodone 07/16/18 #10 tab - recommended ongoing out-patient support through [facility] ATS program; pt declines at this time. - DC'd fentanyl; will continue hydrocodone for short-term though pain appears to be out of proportion to clinical picture. (11) Anxiety Status: Chronic Assessment & Plan: resume home Buspar Clinical Quality Measures DVT/VTE Risk/Contraindication: Risk Factor Score Per Nursin RFS Level Per Nursing on Admit: 3=High KASANDRA SANCHEZ DO Sep 30, 2018 11:39
--- NOTE | 2018-09-30 12:00 | NUR ---
THIS RN AT BEDSIDE FOR FHT VIA DOPPLER. FHT AT 130. PT STATES FEELS GOOD MOVEMENT.
--- NOTE | 2018-09-30 13:27 | NUR ---
CM/SS was going to speak with the patient after RNing stated that she wanted to "fire" her Dr due to reduction of pain medications. This writer editor walked in and introduced self and role at hospital, patient then stated that she did not need a home health care social worker and was not going to speak with me.
[2018-09-30] MEDS: CYCLOBENZAPRINE 10 MG (FLEXERIL) TAB PO PRN (14:23)
--- NOTE | 2018-09-30 15:41 | NUR ---
Pt. complaining of heart burn. Dr. Green called and orders received for tums. Asked by to call patient's pharmacy and verify dosage of Buspar. Pt. is prescribed Buspar 30mg PO TID. According to her pharmacy, this is accurate. [facility] pharmacy notified.
[2018-09-30] MEDS: CALCIUM CARBONATE 500 MG (TUMS) TAB.CHEW PO PRN ×2 (15:47→15:53)
--- NOTE | 2018-09-30 16:00 | NUR ---
fht doppled at 125. pt states feels good movement.
--- NOTE | 2018-09-30 19:45 | NUR ---
Pt refused doppler at this time.
[2018-09-30] MEDS ORDERED: VANCOMYCIN 1250 MG/NS 250 ML IVPB IV SCH ×2 (20:00)
[2018-09-30] MEDS: busPIRone 15 MG (BUSPAR) TABLET PO SCH (20:17)
--- NOTE | 2018-09-30 20:35 | NUR ---
DR. SANCHEZ CALLED AND INFORMED THAT PATIENT WAS CONCERNED ABOUT TAKING LEVEMIR AND NOT HER NORMAL LANTUS. PATIENT STATED THAT YEARS AGO HER DOCTOR TOLD HER THAT SHE SHOULD TAKE LANTUS AND NOT LEVEMIR BUT SHE COULD NOT REMEMBER THE REASON WHY. RECEIVED ORDERS FOR PATIENT TO USE HER OWN LANTUS TONIGHT. THIS RN WITNESSED PATIENT AND CONFIRMED THAT PATIENT PULLED UP 24 UNITS OF LANTUS ON HER PEN AND INJECT IT INTO HER RIGHT ABD. ALSO INFORMED THAT PATIENT REFUSED HER CHECK WITH WOMEN SERVICES NURSE BECAUSE SHE "WAS TIRED OF GETTING POKED AND PRODDED AND WAS EXHAUSTED AND COULD FEEL HER BABY MOVING". INFORMED DOCTOR THAT PATIENT WAS EDUCATED REGARDING THE IMPORTANCE OF CHECKS AND THAT SHE AGREED THAT SHE WOULD ALLOW THE WOMEN'S SERVICES NURSE PERFORM HER ASSESSMENT THE NEXT TIME.
[2018-09-30] MEDS: FERROUS SULF 325 MG (IRON) TAB PO SCH (20:47)
[2018-09-30] MEDS ORDERED: NON-FORMULARY MEDICATION 1 EA EA (Pramipexole Di-HCl (Pramipexole Dihydrochloride) 0.25 MG PO SCH (21:00)
[2018-09-30] MEDS ORDERED: NON-FORMULARY MEDICATION 1 EA EA (Buspirone HCl 30 MG) PO SCH (21:00)
[2018-09-30] MEDS ORDERED: PRAMIPEXOLE 0.125 MG (MIRAPEX) TABLET PO SCH (21:00)
[2018-09-30] MEDS ORDERED: inSUlin DETERMIR 1 UNIT/0.01 ML (LEVEMIR) CHARGE PER UNIT SQ SCH (21:00)
--- NOTE | 2018-09-30 23:25 | NUR ---
FH tones obtained at this time, 120-130
[2018-10-01 00:03] VITALS: BP 127/75
[2018-10-01] MEDS: PIPERACILLIN/TAZO 4.5 GM/NS 100 ML IV SCH ×2 (02:52)
[2018-10-01] MEDS: HYDROcodone/APAP 5 MG/325 MG (LORTAB) TAB PO PRN ×2 (03:41→11:19)
[2018-10-01 04:09] VITALS: BP 135/82
--- NOTE | 2018-10-01 04:30 | NUR ---
HR at 120's.
[2018-10-01] MEDS: inSUlin ASPART (NovoLOG) 1 UNIT/0.01 ML (CHARGE PER UNIT) SC SCH ×3 (05:28→11:18)
[2018-10-01] MEDS: CYCLOBENZAPRINE 10 MG (FLEXERIL) TAB PO PRN ×2 (06:43→11:19)
[2018-10-01] MEDS: FERROUS SULF 325 MG (IRON) TAB PO SCH (06:43)
[2018-10-01] MEDS: NS IV 1000 ML 1,000 ML IV SCH (06:45)
[2018-10-01] MEDS ORDERED: TROUGH ORDER-PHARMACY XX ONE (07:00)
[2018-10-01] MEDS ORDERED: PRENATAL VITAMIN 1 EA TAB PO SCH (07:00)
[2018-10-01] MEDS ORDERED: FERROUS SULF 325 MG (IRON) TAB PO SCH (08:00)
--- NOTE | 2018-10-01 08:05 | NUR ---
FHT OBTAINED VIA DOPPLER. HR: 122.
[2018-10-01 08:45] VITALS: BP 134/83
[2018-10-01] MEDS ORDERED: NON-FORMULARY MEDICATION 1 EA EA (Prenatal Vit W-Ca,Fe,FA(<1 mg) (Prenatal Formula) 1 TAB) PO SCH (09:00)
[2018-10-01] MEDS ORDERED: FUROSEMIDE 20 MG (LASIX) TAB PO SCH (09:00)
[2018-10-01] MEDS ORDERED: ACET325T38 PO (09:43)
[2018-10-01] MEDS ORDERED: FERR325T18 PO (09:43)
--- NOTE | 2018-10-01 09:47 | Discharge Instructions ---
Discharge [facility] Discharge Medications New, Converted or Re-Newed RX: Transmitted to Pharmacy New Medications: Acetaminophen (Tylenol) 325 Mg Tablet 2 TAB PO Q6H PRN for PAIN-MILD, #100 TAB 0 Refills Ferrous Sulfate (Ferrous Sulfate) 325 Mg Tablet 325 MG PO BID WITH MEALS, #60 TAB 0 Refills Continued Medications: Aspirin (Aspir 81) 81 Mg Tablet.dr 81 MG PO BID, TAB Buspirone HCl (Buspirone HCl) 30 Mg Tablet 30 MG PO TID, TAB Clonidine HCl (Clonidine HCl) 0.2 Mg Tablet 0.2 MG PO BID, TAB Cyclobenzaprine HCl (Cyclobenzaprine HCl) 10 Mg Tablet 10 MG PO TID PRN for MUSCLE SPASMS, TAB Furosemide (Furosemide) 20 Mg Tablet 20 MG PO DAILY, TAB Gabapentin (Gabapentin) 800 Mg Tablet 800 MG PO QID, TAB Insulin Glargine,Hum.rec.anlog (Lantus Solostar) 100 Unit/1 Ml Insuln.pen 24 UNITS SC HS, EA Insulin Lispro (Humalog Kwikpen) 100 Unit/1 Ml Insuln.pen 6 UNITS SQ AC, EA Nifedipine (Procardia Xl) 60 Mg Tab.er.24 60 MG PO BID, TAB Pramipexole Di-HCl (Pramipexole Dihydrochloride) 0.25 Mg Tablet 0.25 MG PO HS, TAB Vit W-Ca,Fe,FA(<1 mg) ( Formula) 1 Each Tablet 1 TAB PO DAILY, TAB Patient Instructions Goal/Follow Up Appt: Follow-up with MIKAEL as scheduled Activity & Diet Discharge Diet: ADA Diet Orders-Post D/C & Referrals Pneu Vac Indicated: Yes KASANDRA SANCHEZ DO Oct 01, 2018 09:46
--- NOTE | 2018-10-01 09:47 | Discharge Summary ---
Diagnosis/Chief Complaint Date of Admission Sep 29, 2018 at 20:20 Date of Discharge Oct 01, 2018 Admission Diagnosis Admission Diagnosis Cellulitis L foot 2nd metatarsal fracture L foot DM Type 1 uncontrolled 28wk preg Discharge Diagnosis see Problem List Problems/Diagnosis: (1) Cellulitis Assessment & Plan: - admitted 09/19/18 - IV Zosyn and Vancomycin - wbc wnl, afebrile, mild elevation in crp; blood culture negative thus far - erythema to the foot improved since admission - pain appear out of proportion to clinical picture especially in light of the fact that patient was ambulating on the foot prior to coming to the ER. 10/01 - resolved DC home continue Augmentin for antibiotics Qualifiers: Status: Acute (2) Diabetes type 1, uncontrolled Assessment & Plan: - pt reports that she took her usual dose of Lantus 24U last night - BS running 400's this am. - resumed home Humalog of 6U with meals plus SSI A; will treat with Levemir 24U qhs Qualifiers: Qualified Codes: E10.65 - Type 1 diabetes mellitus with hyperglycemia Status: Chronic (3) CKD (chronic kidney disease) stage 3, GFR 30-59 ml/min Assessment & Plan: - Cr. 1.6; baseline from clinic record 05/2017 was 1.7 - unable to use JOSEPHINE-I secondary to - managed by specialists at Status: Chronic (4) Bilateral leg edema Assessment & Plan: - venous doppler negative - likely secondary to and CKD - resume home Lasix 20mg daily Status: Acute (5) Fracture of second metatarsal bone of left foot Assessment & Plan: - pt unaware of foot injury until x-ray was done in the ER - pain out of proportion for fracture, encompassing entire foot, ankle and lower leg 10/01 - walking boot on DC; recommend APAP for pain Qualifiers: Qualified Codes: S92.325A - Nondisplaced fracture of second metatarsal bone , left foot, initial encounter for closed fracture Status: Acute (6) Anemia Assessment & Plan: - secondary to CKD and - increase home iron to BID Qualifiers: Qualified Codes: D50.8 - Other iron deficiency anemias Status: Chronic (7) 28 weeks gestation of Assessment & Plan: - seen in consultation by OB - OB US obtained (8) induced hypertension Assessment & Plan: - continue home clonidine and Procardia Qualifiers: Qualified Codes: O13.3 - Gestational [-induced] hypertension without significant proteinuria, third trimester Status: Chronic (9) Diabetic 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 Assessment & Plan: - resume home Neurontin Qualifiers: Qualified Codes: E10.42 - Type 1 diabetes mellitus with diabetic polyneuropathy Status: Chronic (10) Hx of substance abuse Assessment & Plan: - pt reports prior hx of drug use; reports she has seen Ray at [facility] as ATS Counselor in the past but does not need to continue to see him as she is clean - UDS was positive for opiates, pt reports she took old pain pill from when he had an infection after her amputation in June - per her ext med hx pt had rx for hydrocodone 07/16/18 #10 tab - recommended ongoing out-patient support through [facility] ATS program; pt declines at this time. - DC'd fentanyl; will continue hydrocodone for short-term though pain appears to be out of proportion to clinical picture. 10/01 - pt very upset yesterday about the DC of fentanyl; recommend APAP for pain at DC though pt is requesting something stronger - not recommended with and concern about addiction/abuse potential Status: Chronic (11) Anxiety Assessment & Plan: resume home Buspar Status: Chronic Chief Complaint/HPI Chief Complaint/HPI This is a 33 yo female with uncontrolled DM Type 1 since the age of 11. Pt is 28 wk with an PRIYANK of 12/22/18. Pt has seen Dr. Adame for her OB care and was referred to and has been managed by M Dr. Valdes for DM, CKD and PIH. Pt reports that Sunday09/27/18 she hopped a low fence while taking a short cut and landed on her left foot (pt was trying to protect her R foot due to a hx of osteo s/p amputation of 2 toes in 06/2018). She report she thought she sprained her foot/ankle. She then presented to the ER yesterday with c/o of increased pain and redness. She reports warmth to the foot. Denies fever. BS reported was 170's prior to coming to the ER. Pt was diagnosed with an acute non-displaced fracture of the 2nd metatarsal of the L foot and cellulitis. She was started on IV Zosyn and Vancomycin. Improvement in redness and warmth. Pt reports significant pain in the foot. She describe the pain as burning but also reports that it is exquisitely tender to the touch. She reports she "barely" could walk on it since Sunday. Pt has been afebrile since admission. Discharge Summary-Simple/Stand Consultations Discharge Physical Examination Allergies: Coded Allergies: gluten (Verified Allergy, Unknown, 09/24/17) Vitals & I&Os Vital Sign - Last 12Hours Date Time Temp Pulse Resp B/P (MAP) Pulse Ox O2 Delivery O2 Flow Rate FiO2 10/01/18 08:53 99 10/01/18 08:45 94.7 18 134/83 (100) 100 Room Air Intake and Output 10/01/18 00:00 Intake Total 3280 ml Balance 3280 ml Hospital Course See final discharge diagnosis. Radiology Reviewed Date of Exam: 09/29/18 FOOT, LEFT, 3 VIEWS INDICATION: Left foot pain 3 views of the left foot show an acute nondisplaced fracture of the proximal shaft of the second metatarsal. There is an old healed fracture of the midshaft of the fifth metatarsal. IMPRESSION: Acute nondisplaced fracture proximal shaft second metatarsal left foot. Discharge Instructions to patient/family Please see electronic discharge instructions given to patient. Discharge Medications Reviewed and agree with Discharge Medication list on patient's Discharge Instruction sheet Clinical Quality Measures DVT/VTE Risk/Contraindication: Risk Factor Score Per Nursin RFS Level Per Nursing on Admit: 3=High KASANDRA SANCHEZ DO Oct 01, 2018 09:47
[2018-10-01] MEDS: NIFEdipine ER 60 MG (PROCARDIA XL) TAB PO SCH (11:19)
[2018-10-01] MEDS: ASPIRIN 81 MG CHEW (CHILDREN'S ASA) PO SCH (11:19)
[2018-10-01] MEDS: busPIRone 15 MG (BUSPAR) TABLET PO SCH (11:19)
[2018-10-01] MEDS: GABAPENTIN 400 MG (NEURONTIN) CAP PO SCH (11:19)
[2018-10-01] MEDS: cloNIDine 0.2 MG (CATAPRES) TAB PO SCH (11:29)
[2018-10-01 13:00] VITALS: BP 134/83
--- NOTE | 2018-10-01 13:00 | NUR ---
HUONG ARANGO demonstrates understanding of discharge instructions and accurately returns instructions upon questioning. Copy of Post-Discharge Instructions given to PT. HUONG ARANGO is able to manage continuing needs after discharge. Patients belongings returned to PT. Patient discharged from [facility] on 10/01/18 at 1300. HUONG ARANGO left floor via W/C, accompanied by STAFF AND SUSAN PER AUTO.
== END 2018-10-01 13:00 | disposition home or self-care (01) | DRG 832 ==
LOC: EDUNIT# 18:00 → ER 18:01 → 4TH 20:20
PROVIDERS: ADMIT Family Medicine; ATTEND Family Medicine
DX: O99.713 Diseases of the skin and subcutaneous tissue complicating pregnancy, third trimester (principal); L03.116 Cellulitis of left lower limb; O9A.213 Injury, poisoning and certain other consequences of external causes complicating pregnancy, third trimester; S92.325A Nondisplaced fracture of second metatarsal bone, left foot, initial encounter for closed fracture; O98.413 Viral hepatitis complicating pregnancy, third trimester; Z3A.28 28 weeks gestation of pregnancy; O23.13 Infections of bladder in pregnancy, third trimester; O24.013 Pre-existing type 1 diabetes mellitus, in pregnancy, third trimester; O26.833 Pregnancy related renal disease, third trimester; E10.42 Type 1 diabetes mellitus with diabetic polyneuropathy; E10.65 Type 1 diabetes mellitus with hyperglycemia; O99.333 Smoking (tobacco) complicating pregnancy, third trimester; O99.89 Other specified diseases and conditions complicating pregnancy, childbirth and the puerperium; F17.210 Nicotine dependence, cigarettes, uncomplicated; O13.3 Gestational [pregnancy-induced] hypertension without significant proteinuria, third trimester; O99.613 Diseases of the digestive system complicating pregnancy, third trimester; K90.0 Celiac disease; O99.353 Diseases of the nervous system complicating pregnancy, third trimester; G40.909 Epilepsy, unspecified, not intractable, without status epilepticus; O99.343 Other mental disorders complicating pregnancy, third trimester; F41.9 Anxiety disorder, unspecified; F32.9 Major depressive disorder, single episode, unspecified; O10.213 Pre-existing hypertensive chronic kidney disease complicating pregnancy, third trimester; N18.3 Chronic kidney disease, stage 3 (moderate); O99.013 Anemia complicating pregnancy, third trimester; D50.8 Other iron deficiency anemias; D63.1 Anemia in chronic kidney disease; Z79.4 Long term (current) use of insulin; Z89.411 Acquired absence of right great toe; Z87.74 Personal history of (corrected) congenital malformations of heart and circulatory system
CPT/HCPCS: 36415; 73630; 76805; 76819; 80053; 80202; 80306; 80320; 81000; 82962; 83605; 83735; 85025; 85610; 85652; 85730; 86141; 87040; 87088; 93041; 96361; 96365; 96367; 96375

== ENCOUNTER 2018-10-04 09:21 | Emergency (ER) | payer MEDICAID ==
[~2018-10-04] VITALS: Ht 167.6 cm; Wt 86.4 kg
[~2018-10-04 09:21] MED LIST changes: +ACET325T38 PO; +ASPI-586 PO; +CLON-445 PO; +CLON0.2T PO; +CYCL10TA9 PO; +FURO20TA4 PO; +INSU100I10 SC; +NIFE60TA2 PO; +PRAM0.257 PO; +PREN-8 PO
[2018-10-04] MEDS ORDERED: ACHD5005 PO (11:34)
--- NOTE | 2018-10-04 11:34 | ED Lower Extremity ---
General Chief Complaint: Lower Extremity Stated Complaint: LEFT FOOT PAIN/SWELLING Nursing Triage Note: C/O WORSENING PAIN TO L-FOOT. PT. STATES SHE MAY HAVE MADE FOOR WORSE BY CLIMBIMG 3 FLIGHTS OF STAIRS Nursing Sepsis Screen: No Definite Risk Source: patient Exam Limitations: no limitations History of Present Illness Date Seen by Provider: Oct 04, 2018 Time Seen by Provider: 11:15 Initial Comments 33-year-old female who presents to the emergency room with complaints of left foot pain. She reports that she fractured her foot last week and has had increasing pain because she is having to climb 3 flights of stairs to her apartment. She called her high risk sales closer Dr. Valdes at [facility] and he instructed her to come to to be evaluated but she does not have a ride to the hospital and decided to come here for pain control. Onset: last week Pain/Injury Location: left foot Method of Injury: fell Allergies and Home Medications Allergies Coded Allergies: gluten (Verified Allergy, Unknown, 09/24/17) Home Medications Acetaminophen 500 Mg Tablet, 500-1,000 MG PO Q6H PRN for PAIN-MILD, (Reported) Acetaminophen 325 Mg Tablet, 2 TAB PO Q6H PRN for PAIN-MILD Prescribed by: KASANDRA SANCHEZ on 10/01/18 09 Aspirin 81 Mg Tablet.dr, 81 MG PO BID, (Reported) Buspirone HCl 30 Mg Tablet, 30 MG PO TID, (Reported) Clonidine HCl 0.2 Mg Tablet, 0.2 MG PO BID, (Reported) Cyclobenzaprine HCl 10 Mg Tablet, 10 MG PO TID PRN for MUSCLE SPASMS, (Reported) Ferrous Sulfate 325 Mg Tablet, 325 MG PO BID WITH MEALS Prescribed by: KASANDRA SANCHEZ on 10/01/18 0943 Furosemide 20 Mg Tablet, 20 MG PO DAILY, (Reported) Gabapentin 800 Mg Tablet, 800 MG PO QID, (Reported) Hydrocodone Bit/Acetaminophen 1 Tab Tab, 1 EACH PO Q6H PRN for PAIN-MODERATE Prescribed by: ROSS ANG on 10/04/18 1134 Insulin Glargine,Hum.rec.anlog 100 Unit/1 Ml Insuln.pen, 24 UNITS SC HS, ( Reported) Insulin Lispro 100 Unit/1 Ml Insuln.pen, 6 UNITS SQ AC, (Reported) Nifedipine 60 Mg Tab.er.24, 60 MG PO BID, (Reported) Pramipexole Di-HCl 0.25 Mg Tablet, 0.25 MG PO HS, (Reported) Vit W-Ca,Fe,FA(<1 mg) 1 Each Tablet, 1 TAB PO DAILY, (Reported) Patient Home Medication List Home Medication List Reviewed: Yes Review of Systems Constitutional: no symptoms reported, see HPI Musculoskeletal: see HPI, joint pain (left foot pain) All Other Systems Reviewed Negative Unless Noted: Yes Past Dqyeaba-Qesnhg-Gxjcrh Hx Past Med/Social Hx: Reviewed Nursing Past Med/Soc Hx Patient Social History Drug of Choice: + IV DRUG USE, EXTENSIVE--WILL NOT STATE WHAT DRUGS SHE HAS USED. Type Used: Cigarettes 2nd Hand Smoke Exposure: No Recent Foreign Travel: No Contact w/Someone Who Travel: No Recent Infectious Disease Expo: No Recent Hopitalizations: No Immunizations Up To Date Tetanus Booster (TDap): Unknown PED Vaccines UTD: No Date of Influenza Vaccine: Jul 03, 2016 Seasonal Allergies Seasonal Allergies: No Past Medical History Surgeries: Yes Cardiac, Section, Orthopedic Respiratory: Yes (TOBACCOISM) Cardiac: Yes Hypertension Neurological: Yes (SEIZURES R/T DIABETES) Neuropathy, Seizure Disorder : Yes Reproductive Disorders: No Female Reproductive Disorders: Denies Sexually Transmitted Disease: No HIV/AIDS: No Genitourinary: Yes Bladder Infection, Renal Failure, UTI-Chronic Gastrointestinal: Yes (CELIAC DISEASE; HEPATITIS C--NO TREATMENT) Hepatitis Musculoskeletal: Yes Fractures Endocrine: Yes (PT HAS INSULIN PUMP) Diabetes, Insulin dep HEENT: No Loss of Vision: Bilateral Hearing Impairment: Denies Cancer: No Psychosocial: Yes (POLYSUBSTANCE ABUSE) Anxiety, Depression Integumentary: Yes (MRSA) Blood Disorders: Yes (HEP C+, ANEMIA) Adverse Reaction/Blood Tranf: No Family Medical History Reviewed Nursing Family Hx FH: COPD (chronic obstructive pulmonary disease) 19 FATHER FH: congestive heart failure 19 FATHER FH: liver cancer 19 MOTHER No Pertinent Family Hx Physical Exam Vital Signs Vital Signs - First Documented 10/04/18 09:52 Temp 96.0 Pulse 103 Resp 18 B/P (MAP) 153/106 (122) Pulse Ox 98 O2 Delivery Room Air Capillary Refill : Less Than 3 Seconds Height, Weight, BMI Height: 5'6.00" Weight: 190lbs. 9.0oz. [id number]; 31.2 BMI Method:Stated General Appearance: WD/WN, no apparent distress Cardiovascular: normal peripheral pulses, regular rate, rhythm, no edema, no gallop, no JVD, no murmur Respiratory: chest non-tender, lungs clear, normal breath sounds, no respiratory distress, no accessory muscle use Feet: left foot pain, left foot soft tissue tenderness, left foot swelling Neurologic/Psychiatric: alert, normal mood/affect, oriented x 3 Skin: normal color, warm/dry Progress/Results/Core Measures Results/Orders Vital Signs/I&O 10/04/18 10/04/18 09:52 11:35 Temp 96.0 96.0 Pulse 103 103 Resp 18 18 B/P (MAP) 153/106 (122) 153/106 (122) Pulse Ox 98 98 O2 Delivery Room Air Blood Pressure Mean: 122 Progress Progress Note : Time: 11:30 Progress Note I have seen and evaluated the patient. I've called and spoke to Dr. Valdes at [facility] obstetrics and he recommends giving the patient a small number of hydrocodone given her substance abuse history. I have informed the patient of plan of care and she is in agreement. Return precautions were given. Diagnostic Imaging Diagonstic Imaging: Xray Plain Films/CT/US/NM/MRI: other (foot) Comments Date of Exam: 09/29/18 FOOT, LEFT, 3 VIEWS INDICATION: Left foot pain 3 views of the left foot show an acute nondisplaced fracture of the proximal shaft of the second metatarsal. There is an old healed fracture of the midshaft of the fifth metatarsal. IMPRESSION: Acute nondisplaced fracture proximal shaft second metatarsal left foot. 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 Decision time for Depature: 11:32 Referrals: REPLACED BY [facility] (PCP/Family) Primary Care Physician Patient Instructions: Stress Fracture of the Metatarsal Bone (DC) Add. Discharge Instructions: Take medications as directed. You may use additional Tylenol not exceeding your daily limit for pain relief. Follow-up with [facility] within 1 week for recheck. Follow-up with Dr. Valdes at [facility]etric[facility] office within 1 week for recheck. Return back to the emergency room for worsening symptoms or concerns as needed. All discharge instructions reviewed with patient and/or family. Voiced understanding. Scripts Hydrocodone Bit/Acetaminophen (Hydrocodone/Acetaminophen 5/325mg Tablet) 1 Tab Tab 1 EACH PO Q6H PRN for PAIN-MODERATE MDD 10, #10 TAB Prov: ROSS ANG 10/04/18 ROSS ANG Oct 04, 2018 11:34
[2018-10-04 11:35] VITALS: BP 153/106
== END 2018-10-04 11:35 | disposition home or self-care (01) ==
LOC: EDUNIT# 09:21 → ER 09:24
DX: S92.325K Nondisplaced fracture of second metatarsal bone, left foot, subsequent encounter for fracture with nonunion (principal); I10 Essential (primary) hypertension; E11.40 Type 2 diabetes mellitus with diabetic neuropathy, unspecified; E11.49 Type 2 diabetes mellitus with other diabetic neurological complication; G40.909 Epilepsy, unspecified, not intractable, without status epilepticus; B19.20 Unspecified viral hepatitis C without hepatic coma; F41.9 Anxiety disorder, unspecified; F32.9 Major depressive disorder, single episode, unspecified; F19.10 Other psychoactive substance abuse, uncomplicated; D64.9 Anemia, unspecified; Z87.19 Personal history of other diseases of the digestive system; Z87.448 Personal history of other diseases of urinary system; Z80.0 Family history of malignant neoplasm of digestive organs; Z82.49 Family history of ischemic heart disease and other diseases of the circulatory system; Z87.440 Personal history of urinary (tract) infections; Z79.82 Long term (current) use of aspirin; Z79.4 Long term (current) use of insulin; Z98.890 Other specified postprocedural states; X58.XXXD Exposure to other specified factors, subsequent encounter
CPT/HCPCS: 99283

== ENCOUNTER 2018-12-20 16:24 | Emergency (ER) | payer MEDICAID ==
[~2018-12-20] VITALS: Ht 170.2 cm; Wt 72.6 kg
[2018-12-20 17:23] LABS: BASOPHILS # (AUTO) 0.1 10^3/uL (0.0-0.1); BASOPHILS % (AUTO) 1 % (0-10); EOSINOPHILS # (AUTO) 0.2 10^3/uL (0.0-0.3); EOSINOPHILS % (AUTO) 3 % (0-10); HEMATOCRIT 37 % (35-52); LYMPHOCYTES % (AUTO) 32 % (12-44); MEAN CORPUSCULAR HEMOGLOBIN 29 PG (25-34); MEAN CORPUSCULAR HGB CONC 33 G/DL (32-36); MEAN CORPUSCULAR VOLUME 89 FL (80-99); MEAN PLATELET VOLUME 11.1 FL (7.4-10.4); MONOCYTES # (AUTO) 0.7 X 10^3 (0.0-1.0); MONOCYTES % (AUTO) 11 % (0-12); NEUTROPHILS # (AUTO) 3.3 X 10^3 (1.8-7.8); NEUTROPHILS % (AUTO) 53 % (42-75); PLATELET COUNT 270 10^3/uL (130-400); RED CELL DISTRIBUTION WIDTH 13.1 % (10.0-14.5); WHITE BLOOD COUNT 6.3 10^3/uL (4.3-11.0)
[2018-12-20 17:45] LABS: ALBUMIN 3.5 GM/DL (3.2-4.5); BILIRUBIN,TOTAL 0.1 MG/DL (0.1-1.0); CREATININE SERUM 2.66 MG/DL (0.60-1.30); POTASSIUM 5.1 MMOL/L (3.6-5.0); TOTAL PROTEIN 7.6 GM/DL (6.4-8.2); URIC ACID 6.4 MG/DL (2.6-7.2)
--- NOTE | 2018-12-20 17:58 | Diagnostic Imaging Report ---
EXAMINATION: Three views of the left foot. INDICATION: Increasing foot pain. Previous foot fracture. COMPARISON: Prior study from 09/29/2018. FINDINGS: When compared to the prior examination, there is increased callus and periosteal reaction demonstrated about the patient's proximal second metatarsal fracture but this does not appear to be united at this time. The more remote appearing fifth metatarsal fracture is unchanged. There also now appear to be some possible lucencies within the first and second cuneiforms. Additional fractures could not be excluded. There is no evidence to suggest abnormal widening of the Lisfranc joint on this exam. IMPRESSION: There is a large degree of periosteal reaction and callus developing about the patient's proximal second metatarsal fracture but this does appear to remain nonunited. The patient's remote fifth metatarsal fracture is unchanged. There are new possible lucencies within the first and second cuneiforms which may reflect fractures. While there is no definitive widening of the Lisfranc joint, a Lisfranc injury is suspected given the location of the fractures. Consider followup with left foot MRI. Dictated by: Dictated on workstation # [id number]
--- NOTE | 2018-12-20 18:09 | ED General ---
General Chief Complaint: Lower Extremity Stated Complaint: LEFT FOOT PAIN Nursing Triage Note: PATIENT AMBULATORY TO ER ROOM 5 WITH FRIEND WITH COMPLAINT OF LEFT FOOT PAIN WITH SWELLING AND REDNESS X 3 MONTHS. PATIENT STATES THE PAIN IS WORSE TODAY THAN NORMAL. PATIENT STATES SHE BROKE HER FOOT 3 MONTHS AGO AND HAS HAD PROBLEMS WITH THE FOOT SWELLING. TODAY THE FOOT IS HOT TO THE TOUCH AND HAS +2 EDEMA. PATIENT HAS GOOD CAPILLARY REFILL TO THE FOOT. Nursing Sepsis Screen: No Definite Risk Source of Information: Patient, Old Records Exam Limitations: No Limitations History of Present Illness Date Seen by Provider: Dec 20, 2018 Time Seen by Provider: 16:55 Initial Comments This 33-year-old woman presents to the emergency room with concerns about worsening swelling, erythema, and pain in the left foot. She has had problems with this foot for several months since having a fracture. She does not believe the fracture healed properly. She has not followed with an orthopedic surgeon because her healthcare was distracted by a and her type I diabetes. She is afebrile but the foot is warm to the touch with bright blanching erythema. She had a complicated and spent about one month at [facility]. She has been home for about 2 weeks. She is not breast-feeding. Patient also has chronic kidney disease and has a oracle consultant, Dr. Mejia. Her primary care provider is Graciela Loza at [facility]. Allergies and Home Medications Allergies Coded Allergies: gluten (Verified Allergy, Unknown, 12/20/18) Home Medications Acetaminophen 500 Mg Tablet, 500-1,000 MG PO Q6H PRN for PAIN-MILD, (Reported) Acetaminophen 325 Mg Tablet, 2 TAB PO Q6H PRN for PAIN-MILD Prescribed by: KASANDRA SANCHEZ on 10/01/18 09 Aspirin 81 Mg Tablet.dr, 81 MG PO BID, (Reported) Buspirone HCl 30 Mg Tablet, 30 MG PO TID, (Reported) Clonidine HCl 0.2 Mg Tablet, 0.2 MG PO BID, (Reported) Cyclobenzaprine HCl 10 Mg Tablet, 10 MG PO TID PRN for MUSCLE SPASMS, (Reported) Doxycycline Hyclate 100 Mg Tablet, 100 MG PO BID Prescribed by: CHAUNCEY THOMAS on 12/20/18 191 Ferrous Sulfate 325 Mg Tablet, 325 MG PO BID WITH MEALS Prescribed by: KASANDRA SANCHEZ on 10/01/18942 Furosemide 20 Mg Tablet, 20 MG PO DAILY, (Reported) Gabapentin 800 Mg Tablet, 800 MG PO QID, (Reported) Hydrocodone Bit/Acetaminophen 1 Tab Tab, 1 EACH PO Q6H PRN for PAIN-MODERATE Prescribed by: ROSS ANG on 10/04/18 1134 Hydrocodone/Acetaminophen 1 Each Tablet, 1 TAB PO Q4-6HR Prescribed by: CHAUNCEY THOMAS on 12/20/181909 Insulin Glargine,Hum.rec.anlog 100 Unit/1 Ml Insuln.pen, 24 UNITS SC HS, ( Reported) Insulin Lispro 100 Unit/1 Ml Insuln.pen, 6 UNITS SQ AC, (Reported) Levofloxacin 250 Mg Tablet, 250 MG PO DAILY Prescribed by: CHAUNCEY THOMAS on 12/20/181909 Nifedipine 60 Mg Tab.er.24, 60 MG PO BID, (Reported) Pramipexole Di-HCl 0.25 Mg Tablet, 0.25 MG PO HS, (Reported) Vit W-Ca,Fe,FA(<1 mg) 1 Each Tablet, 1 TAB PO DAILY, (Reported) Patient Home Medication List Home Medication List Reviewed: Yes Review of Systems Review of Systems Constitutional: no symptoms reported EENTM: no symptoms reported Respiratory: no symptoms reported Cardiovascular: no symptoms reported Gastrointestinal: no symptoms reported Genitourinary: no symptoms reported : No Musculoskeletal: see HPI Skin: see HPI Psychiatric/Neurological: No Symptoms Reported Hematologic/Lymphatic: No Symptoms Reported Past Timxumr-Zvhnwc-Flncum Hx Patient Social History Alcohol Use: Denies Use Recreational Drug Use: No (PATIENT DENIES CURRENT USE) Drug of Choice: + IV DRUG USE, EXTENSIVE--WILL NOT STATE WHAT DRUGS SHE HAS USED. Smoking Status: Current Everyday Smoker Type Used: Cigarettes Former Smoker, Quit: Oct 04, 2018 2nd Hand Smoke Exposure: Yes Recent Foreign Travel: No Contact w/Someone Who Travel: No Recent Infectious Disease Expo: No Recent Hopitalizations: Yes (HOSPITALIZED AT [facility] FOR RELEASED TWO WEEKS AGO) Immunizations Up To Date Tetanus Booster (TDap): Unknown PED Vaccines UTD: No Date of Influenza Vaccine: Jul 03, 2016 Seasonal Allergies Seasonal Allergies: No Past Medical History Surgeries: Yes Amputation (toes on the right foot secondary to osteomyelitis), Cardiac, Section, Orthopedic Respiratory: Yes (TOBACCOISM) Cardiac: Yes Hypertension Neurological: Yes (SEIZURES R/T DIABETES) Neuropathy, Seizure Disorder Last Menstrual Period: Dec 20, 2018 Reproductive Disorders: No Female Reproductive Disorders: Denies Sexually Transmitted Disease: No HIV/AIDS: No Genitourinary: Yes Bladder Infection, Renal Failure, UTI-Chronic Gastrointestinal: Yes (CELIAC DISEASE; HEPATITIS C--NO TREATMENT) Hepatitis Musculoskeletal: Yes (osteomyelitis leading to toe amputation on the right) Fractures Endocrine: Yes (PT HAS INSULIN PUMP) Diabetes, Insulin dep HEENT: No Loss of Vision: Bilateral Hearing Impairment: Denies Cancer: No Psychosocial: Yes (POLYSUBSTANCE ABUSE) Anxiety, Depression Integumentary: Yes (MRSA) Blood Disorders: Yes (HEP C+, ANEMIA) Adverse Reaction/Blood Tranf: No Family Medical History FH: COPD (chronic obstructive pulmonary disease) 19 FATHER FH: congestive heart failure 19 FATHER FH: liver cancer 19 MOTHER No Pertinent Family Hx Physical Exam Vital Signs Vital Signs - First Documented 12/20/18 16:49 Temp 98.4 Pulse 95 Resp 16 B/P (MAP) 195/112 (139) Pulse Ox 97 O2 Delivery Room Air Capillary Refill : Less Than 3 Seconds Height, Weight, BMI Height: 5'7.00" Weight: 160lbs. 9.0oz. 72.970512xh; 31.2 BMI Method:Actual General Appearance: No Apparent Distress, WD/WN HEENT: PERRL/EOMI, Normal ENT Inspection Neck: Normal Inspection Respiratory: Lungs Clear, Normal Breath Sounds, No Accessory Muscle Use Cardiovascular: Regular Rate, Rhythm, No Edema, No Murmur Extremity: Other (left foot has moderate pitting edema, warm blanching erythema , and tenderness throughout. No focal calf tenderness. 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 Norm as Tested Skin: Normal Color, Warm/Dry Focused Exam Lactate Level 12/20/18 17:15: Lactic Acid Level 0.82 Lactic Acid Level Laboratory Tests Test 12/20/18 17:15 Lactic Acid Level 0.82 MMOL/L (0.50-2.00) Progress/Results/Core Measures Suspected Sepsis Recent Fever Within 48 Hours: No Infection Criteria Present: None New/Unexplained Altered Menta: No Sepsis Screen: No Definite Risk SIRS Temperature:98.4 Pulse: 95 Respiratory Rate: 16 Laboratory Tests 12/20/18 17:15: White Blood Count 6.3 Blood Pressure 195 /112 Mean: 139 12/20/18 17:15: Lactic Acid Level 0.82 Laboratory Tests 12/20/18 17:15: Creatinine 2.66H, Platelet Count 270, Total Bilirubin 0.1 Results/Orders Lab Results Laboratory Tests Test 12/20/18 17:15 Range/Units White Blood Count 6.3 4.3-11.0 10^3/uL Red Blood Count 4.12 L 4.35-5.85 10^6/uL Hemoglobin 12.0 11.5-16.0 G/DL Hematocrit 37 35-52 % Mean Corpuscular Volume 89 80-99 FL Mean Corpuscular Hemoglobin 29 25-34 PG Mean Corpuscular Hemoglobin Concent 33 32-36 G/DL Red Cell Distribution Width 13.1 10.0-14.5 % Platelet Count 270 130-400 10^3/uL Mean Platelet Volume 11.1 H 7.4-10.4 FL Neutrophils (%) (Auto) 53 42-75 % Lymphocytes (%) (Auto) 32 12-44 % Monocytes (%) (Auto) 11 0-12 % Eosinophils (%) (Auto) 3 0-10 % Basophils (%) (Auto) 1 0-10 % Neutrophils # (Auto) 3.3 1.8-7.8 X 10^3 Lymphocytes # (Auto) 2.0 1.0-4.0 X 10^3 Monocytes # (Auto) 0.7 0.0-1.0 X 10^3 Eosinophils # (Auto) 0.2 0.0-0.3 10^3/uL Basophils # (Auto) 0.1 0.0-0.1 10^3/uL Sodium Level 139 135-145 MMOL/L Potassium Level 5.1 H 3.6-5.0 MMOL/L Chloride Level 110 H 98-107 MMOL/L Carbon Dioxide Level 19 L 21-32 MMOL/L Anion Gap 10 5-14 MMOL/L Blood Urea Nitrogen 46 H 7-18 MG/DL Creatinine 2.66 H 0.60-1.30 MG/DL Estimat Glomerular Filtration Rate 20 BUN/Creatinine Ratio 17 Glucose Level 220 H 70-105 MG/DL Lactic Acid Level 0.82 0.50-2.00 MMOL/L Uric Acid 6.4 2.6-7.2 MG/DL Calcium Level 9.0 8.5-10.1 MG/DL Corrected Calcium 9.4 8.5-10.1 MG/DL Total Bilirubin 0.1 0.1-1.0 MG/DL Aspartate Amino Transf (AST/SGOT) 27 5-34 U/L Alanine Aminotransferase (ALT/SGPT) 40 0-55 U/L Alkaline Phosphatase 157 H 40-136 U/L C-Reactive Protein High Sensitivity 0.10 0.00-0.50 MG/DL Total Protein 7.6 6.4-8.2 GM/DL Albumin 3.5 3.2-4.5 GM/DL My Orders Orders - CHAUNCEY ALCANTARA MD Ed Iv/Invasive Line Start (12/20/18 17:01) Cbc With Automated Diff (12/20/18 17:01) Comprehensive Metabolic Panel (12/20/18 17:01) Hs C Reactive Protein (12/20/18 17:01) Uric Acid (12/20/18 17:01) Foot, Left, 3 Views (12/20/18 17:41) Ed Iv/Invasive Line Start (12/20/18 18:12) Ns Iv 1000 Ml (Sodium Chloride 0.9%) (12/20/18 18:12) Ns Iv 1000 Ml (Sodium Chloride 0.9%) (12/20/18 18:13) Vancomycin Injection (Vancomycin Injecti (12/20/18 18:15) Blood Culture (12/20/18 18:14) Lactic Acid Analyzer (12/20/18 18:14) Levofloxacin 750 Mg/150 Ml Iv (Levaquin (12/20/18 18:15) Hydrocodone/Apap 5/325 Tablet (Lortab 5 (12/20/18 19:15) Rx-Hydrocodone/Apap 5-325 Mg (Rx-Vicodin (12/20/18 19:15) Medications Given in ED Current Medications Medications Dose Ordered Sig/Dipti Route Start Time Stop Time Status Last Admin Dose Admin Acetaminophen/ Hydrocodone Bitart 1 ea Q4H PRN PO 12/20/18 19:15 12/20/18 19:17 1 EA Levofloxacin/ Dextrose 150 ml @ 100 mls/hr ONCE ONCE IV 12/20/18 18:15 12/20/18 19:44 DC 12/20/18 18:29 100 MLS/HR Sodium Chloride 1,000 ml @ 0 mls/hr Q0M ONCE IV 12/20/18 18:12 12/20/18 18:13 DC 12/20/18 18:29 1,000 MLS/HR Vital Signs/I&O 12/20/18 16:49 Temp 98.4 Pulse 95 Resp 16 B/P (MAP) 195/112 (139) Pulse Ox 97 O2 Delivery Room Air Capillary Refill : Less Than 3 Seconds Blood Pressure Mean: 139 Progress Note : Progress Note Patient was seen and examined. X-ray of the left foot revealed old fractures with no acute fractures. MRI was recommended for further evaluation. Patient' s creatinine has jumped to 2.66. 2 L of IV fluids were ordered for aggressive hydration. Patient will also be empirically treated with vancomycin and Levaquin. These medications were selected based on prior wound cultures. Loading doses are being administered by IV route. Oral therapy will continue with doxycycline and Levaquin. Patient is strongly desires to go home so she can care for her . I discussed the case with Dr. Maurice. We are in agreement to trial outpatient therapy. Patient is to return to the hospital in 48 hours for repeat lab work that will be called to Dr. Maurice. She is then to follow closely in the clinic next week. She should pursue MRI in the outpatient setting. Diagnostic Imaging Diagonstic Imaging: Xray Plain Films/CT/US/NM/MRI: other (left foot) Comments Left foot x-ray viewed by me and report reviewed. See report below: NAME: HUONG ARANGO [facility] REC#: [id number] PT STATUS: REG ER : 1985 PHYSICIAN: CHAUNCEY ALCANTARA MD ADMIT DATE: 12/20/18/ER Draft Date of Exam:12/20/18 FOOT, LEFT, 3 VIEWS EXAMINATION: Three views of the left foot. INDICATION: Increasing foot pain. Previous foot fracture. COMPARISON: Prior study from 09/29/2018. FINDINGS: When compared to the prior examination, there is increased callus and periosteal reaction demonstrated about the patient's proximal second metatarsal fracture but this does not appear to be united at this time. The more remote appearing fifth metatarsal fracture is unchanged. There also now appear to be some possible lucencies within the first and second cuneiforms. Additional fractures could not be excluded. There is no evidence to suggest abnormal widening of the Lisfranc joint on this exam. IMPRESSION: There is a large degree of parosteal reaction and callus developing about the patient's proximal second metatarsal fracture but this does appear to remain nonunited. The patient's remote fifth metatarsal fracture is unchanged. There are new possible lucencies within the first and second cuneiforms which may reflect fractures. While there is no definitive widening of the Lisfranc joint, a Lisfranc injury is suspected given the location of the fractures. Consider followup with left foot MRI. Dictated on workstation # [id number] Dict: 12/20/181751 Trans: 12/20/181757 [facility] [id number] Interpreted by: WENDY JOHNSTON MD Departure Impression Primary Impression: Cellulitis of left foot Additional Impression: Acute on chronic renal failure Qualified Codes: N17.9 - Acute kidney failure, unspecified; N18.9 - Chronic kidney disease, unspecified Disposition: HOME, SELF-CARE Condition: Improved Departure-Patient Inst. Decision time for Depature: 19:05 Referrals: [facility] [place] Primary Care Physician Patient Instructions: Cellulitis (Skin Infection), Adult (DC) Add. Discharge Instructions: You must return to the hospital on Sunday, December 22 for lab work. Those labs will be called to Dr. Maurice for review. Complete your antibiotics as prescribed. Drink plenty of water to stay well-hydrated. Follow-up in the clinic as soon as possible. Preferably early next week. Discuss imaging your foot with MRI which can be ordered as an outpatient. Return to care if you have worsening symptoms including development of fever, spreading redness and pain, etc. All discharge instructions reviewed with patient and/or family. Voiced understanding. Scripts Hydrocodone/Acetaminophen (Hydrocodone-Acetamin 5-325 mg) 1 Each Tablet 1 TAB PO Q4-6HR for PAIN-MODERATE, #10 TAB Prov: CHAUNCEY ALCANTARA MD 12/20/18 Levofloxacin (Levofloxacin) 250 Mg Tablet 250 MG PO DAILY, #10 TAB Prov: CHAUNCEY ALCANTARA MD 12/20/18 Doxycycline Hyclate (Doxycycline Hyclate) 100 Mg Tablet 100 MG PO BID, #20 TAB Prov: CHAUNCEY ALCANTARA MD 12/20/18 Copy Copies To 1: DESIRAE MAURICE MD, JOSHUA T MD Dec 20, 2018 18:09
[2018-12-20] MEDS ORDERED: NS IV 1000 ML 1,000 ML IV ONE ×2 (18:12→18:13)
[2018-12-20] MEDS ORDERED: VANCOMYCIN INJECTION 1,000 MG in NS (IVPB) 250 ML IV SCH (18:15)
[2018-12-20] MEDS ORDERED: LEVOFLOXACIN 750 MG/150 ML IV 150 ML IV ONE (18:15)
[2018-12-20] MEDS ORDERED: LEVO250T46 PO (19:10)
[2018-12-20] MEDS ORDERED: DOXY100T2 PO (19:10)
[2018-12-20] MEDS ORDERED: HYDR-3812 PO (19:10)
[2018-12-20] MEDS ORDERED: HYDROcodone/APAP 5 MG/325 MG (LORTAB) TAB PO ONE (19:15)
[2018-12-20] MEDS ORDERED: RX-HYDROCODONE/APAP 5/325 MG #4 TAB PK PO PRN (19:15)
--- NOTE | 2018-12-20 20:05 | NUR ---
PT CONCERNED ABOUT HYPERTENSION. SPOKE WITH DR LOZADA. PT REPORTS MISSING SCHEDULED DAILY BLOODPRESSURE MEDICATIONS. MEDICATIONS OFFERED TO PATIENT BY DR LOZADA. PT STATED SHE WILL CALL FRIEND TO CHECK ON DOSAGE OF NEW MEDICATION FOR BLOOD PRESSURE
[2018-12-20 20:35] VITALS: BP 216/119
== END 2018-12-20 20:35 | disposition home or self-care (01) ==
LOC: EDUNIT# 16:24 → ER 16:26
DX: L03.116 Cellulitis of left lower limb (principal); N17.9 Acute kidney failure, unspecified; E11.22 Type 2 diabetes mellitus with diabetic chronic kidney disease; I12.9 Hypertensive chronic kidney disease with stage 1 through stage 4 chronic kidney disease, or unspecified chronic kidney disease; N18.9 Chronic kidney disease, unspecified; F41.9 Anxiety disorder, unspecified; F32.9 Major depressive disorder, single episode, unspecified; B19.20 Unspecified viral hepatitis C without hepatic coma; D64.9 Anemia, unspecified; G40.909 Epilepsy, unspecified, not intractable, without status epilepticus; E11.40 Type 2 diabetes mellitus with diabetic neuropathy, unspecified; F17.210 Nicotine dependence, cigarettes, uncomplicated; Z87.19 Personal history of other diseases of the digestive system; Z89.421 Acquired absence of other right toe(s); Z79.4 Long term (current) use of insulin; Z87.440 Personal history of urinary (tract) infections; Z86.14 Personal history of Methicillin resistant Staphylococcus aureus infection; Z80.0 Family history of malignant neoplasm of digestive organs; Z82.49 Family history of ischemic heart disease and other diseases of the circulatory system; Z79.82 Long term (current) use of aspirin; Z98.890 Other specified postprocedural states
CPT/HCPCS: 36415; 73630; 80053; 83605; 84550; 85025; 86141; 87040

== ENCOUNTER → 2018-12-22 | Outpatient (CLI) | payer MEDICAID ==
[~2018-12-22] MED LIST changes: +DOXY100T2 PO; +HYDR-3812 PO; +LEVO250T46 PO
[2018-12-22 17:40] LABS: BASOPHILS # (AUTO) 0.1 10^3/uL (0.0-0.1); BASOPHILS % (AUTO) 1 % (0-10); EOSINOPHILS # (AUTO) 0.3 10^3/uL (0.0-0.3); EOSINOPHILS % (AUTO) 6 % (0-10); HEMATOCRIT 33 % (35-52); LYMPHOCYTES # (AUTO) 1.7 X 10^3 (1.0-4.0); LYMPHOCYTES % (AUTO) 29 % (12-44); MEAN CORPUSCULAR HEMOGLOBIN 29 PG (25-34); MEAN CORPUSCULAR HGB CONC 33 G/DL (32-36); MEAN CORPUSCULAR VOLUME 88 FL (80-99); MEAN PLATELET VOLUME 11.4 FL (7.4-10.4); MONOCYTES # (AUTO) 0.6 X 10^3 (0.0-1.0); MONOCYTES % (AUTO) 11 % (0-12); NEUTROPHILS % (AUTO) 53 % (42-75); PLATELET COUNT 241 10^3/uL (130-400); RED CELL DISTRIBUTION WIDTH 12.9 % (10.0-14.5); WHITE BLOOD COUNT 5.6 10^3/uL (4.3-11.0)
[2018-12-22 17:54] LABS: CALCIUM 9.1 MG/DL (8.5-10.1); CREATININE SERUM 2.94 MG/DL (0.60-1.30); POTASSIUM 4.9 MMOL/L (3.6-5.0)
== END ==
LOC: LAB 17:17
PROVIDERS: ATTEND Family Medicine
DX: L03.116 Cellulitis of left lower limb (principal); N18.9 Chronic kidney disease, unspecified
CPT/HCPCS: 36415; 80048; 85025; 86141

== ENCOUNTER 2019-01-01 17:24 | Emergency (ER) | payer MEDICAID ==
[~2019-01-01] VITALS: Ht 167.6 cm; Wt 72.6 kg
--- NOTE | 2019-01-01 18:40 | Diagnostic Imaging Report ---
INDICATION: Pain and swelling in left foot. TIME OF EXAM: 6:21 p.m. EXAMINATION: Three views of the left foot were obtained. COMPARISON: Correlation made with prior study from 12/20/2018. FINDINGS: Healing fractures of the second and fifth metatarsals are noted. Moderate callus formation is present. Fracture line remains clearly visible involving the second metatarsal and is similar to prior study. There is continued blurring of the fracture of the fifth metatarsal; however, this does remain present as well. Midfoot and hindfoot are unremarkable. No new fracture is seen. IMPRESSION: Healing second and fifth metatarsal fractures. Fracture lines remain partly visible. Dictated by: Dictated on workstation # [id number]
[2019-01-01 18:58] LABS: BASOPHILS # (AUTO) 0.1 10^3/uL (0.0-0.1); BASOPHILS % (AUTO) 1 % (0-10); EOSINOPHILS # (AUTO) 0.2 10^3/uL (0.0-0.3); EOSINOPHILS % (AUTO) 3 % (0-10); HEMATOCRIT 34 % (35-52); HEMOGLOBIN 11.3 G/DL (11.5-16.0); LYMPHOCYTES # (AUTO) 1.7 X 10^3 (1.0-4.0); LYMPHOCYTES % (AUTO) 28 % (12-44); MEAN CORPUSCULAR HEMOGLOBIN 29 PG (25-34); MEAN CORPUSCULAR HGB CONC 33 G/DL (32-36); MEAN CORPUSCULAR VOLUME 88 FL (80-99); MEAN PLATELET VOLUME 11.5 FL (7.4-10.4); MONOCYTES # (AUTO) 0.7 X 10^3 (0.0-1.0); MONOCYTES % (AUTO) 11 % (0-12); NEUTROPHILS # (AUTO) 3.5 X 10^3 (1.8-7.8); NEUTROPHILS % (AUTO) 57 % (42-75); PLATELET COUNT 252 10^3/uL (130-400); RED CELL DISTRIBUTION WIDTH 12.8 % (10.0-14.5); WHITE BLOOD COUNT 6.2 10^3/uL (4.3-11.0)
[2019-01-01 19:16] LABS: ALBUMIN 3.4 GM/DL (3.2-4.5); BILIRUBIN,TOTAL 0.2 MG/DL (0.1-1.0); CREATININE SERUM 2.45 MG/DL (0.60-1.30); POTASSIUM 4.9 MMOL/L (3.6-5.0); TOTAL PROTEIN 6.9 GM/DL (6.4-8.2)
[2019-01-01] MEDS ORDERED: ACHD5005 PO (20:21)
--- NOTE | 2019-01-01 20:21 | ED Lower Extremity ---
General Chief Complaint: Lower Extremity Stated Complaint: L FOOT PAIN Nursing Triage Note: PT AMB TO TRIAGE WITH COMPLAINT OF OSTEOMYELITIS. PT STATES SHE WAS SEEN HERE A FEW WEEKS AGO. STATES SYMPTOMS ARE WORSENING, SWELLING, INCREASRED REDNESS, PAIN. STATES BROKE FOOT A FEW MONTHS AGO THAT IS NOT HEALING. Nursing Sepsis Screen: No Definite Risk Source: patient Exam Limitations: no limitations History of Present Illness Date Seen by Provider: January 01, 2019 Time Seen by Provider: 18:00 Allergies and Home Medications Allergies Coded Allergies: gluten (Verified Allergy, Unknown, 12/20/18) Home Medications Acetaminophen 500 Mg Tablet, 500-1,000 MG PO Q6H PRN for PAIN-MILD, (Reported) Acetaminophen 325 Mg Tablet, 2 TAB PO Q6H PRN for PAIN-MILD Prescribed by: KASANDRA SANCHEZ on 10/01/18942 Aspirin 81 Mg Tablet.dr, 81 MG PO BID, (Reported) Buspirone HCl 30 Mg Tablet, 30 MG PO TID, (Reported) Clonidine HCl 0.2 Mg Tablet, 0.2 MG PO BID, (Reported) Cyclobenzaprine HCl 10 Mg Tablet, 10 MG PO TID PRN for MUSCLE SPASMS, (Reported) Doxycycline Hyclate 100 Mg Tablet, 100 MG PO BID Prescribed by: CHAUNCEY THOMAS on 12/20/181909 Ferrous Sulfate 325 Mg Tablet, 325 MG PO BID WITH MEALS Prescribed by: KASANDRA SANCHEZ on 10/01/18942 Furosemide 20 Mg Tablet, 20 MG PO DAILY, (Reported) Gabapentin 800 Mg Tablet, 800 MG PO QID, (Reported) Hydrocodone Bit/Acetaminophen 1 Tab Tab, 1 EACH PO Q6H PRN for PAIN-MODERATE Prescribed by: ROSS ANG on 10/04/18 1134 Hydrocodone/Acetaminophen 1 Each Tablet, 1 TAB PO Q4-6HR Prescribed by: CHAUNCEY THOMAS on 12/20/181909 Insulin Glargine,Hum.rec.anlog 100 Unit/1 Ml Insuln.pen, 24 UNITS SC HS, ( Reported) Insulin Lispro 100 Unit/1 Ml Insuln.pen, 6 UNITS SQ AC, (Reported) Levofloxacin 250 Mg Tablet, 250 MG PO DAILY Prescribed by: CHAUNCEY THOMAS on 12/20/181909 Nifedipine 60 Mg Tab.er.24, 60 MG PO BID, (Reported) Pramipexole Di-HCl 0.25 Mg Tablet, 0.25 MG PO HS, (Reported) Vit W-Ca,Fe,FA(<1 mg) 1 Each Tablet, 1 TAB PO DAILY, (Reported) Past Updfxhh-Sqrtrk-Mzmnux Hx Patient Social History Alcohol Use: Denies Use Recreational Drug Use: No Drug of Choice: + IV DRUG USE, EXTENSIVE--WILL NOT STATE WHAT DRUGS SHE HAS USED. Smoking Status: Current Someday Smoker Type Used: Cigarettes Former Smoker, Quit: Oct 04, 2018 2nd Hand Smoke Exposure: Yes Recent Foreign Travel: No Contact w/Someone Who Travel: No Recent Infectious Disease Expo: No Recent Hopitalizations: Yes (HOSPITALIZED AT [facility] FOR RELEASED TWO WEEKS AGO) Immunizations Up To Date Tetanus Booster (TDap): Unknown PED Vaccines UTD: No Date of Influenza Vaccine: Jul 03, 2016 Seasonal Allergies Seasonal Allergies: No Past Medical History Surgeries: Yes Amputation, Cardiac, Section, Orthopedic Respiratory: Yes (TOBACCOISM) Cardiac: Yes Hypertension Neurological: Yes (SEIZURES R/T DIABETES) Neuropathy, Seizure Disorder Reproductive Disorders: No Female Reproductive Disorders: Denies Sexually Transmitted Disease: No HIV/AIDS: No Genitourinary: Yes Bladder Infection, Renal Failure, UTI-Chronic Gastrointestinal: Yes (CELIAC DISEASE; HEPATITIS C--NO TREATMENT) Hepatitis Musculoskeletal: Yes (osteomyelitis leading to toe amputation on the right) Fractures Endocrine: Yes Diabetes, Insulin dep HEENT: No Loss of Vision: Bilateral Hearing Impairment: Denies Cancer: No Psychosocial: Yes (POLYSUBSTANCE ABUSE) Anxiety, Depression Integumentary: Yes (MRSA) Blood Disorders: Yes (HEP C+, ANEMIA) Adverse Reaction/Blood Tranf: No Family Medical History FH: COPD (chronic obstructive pulmonary disease) 19 FATHER FH: congestive heart failure 19 FATHER FH: liver cancer 19 MOTHER No Pertinent Family Hx Physical Exam Vital Signs Vital Signs - First Documented 01/01/19 17:34 Temp 98.3 Pulse 89 Resp 20 B/P (MAP) 147/93 (111) Pulse Ox 97 O2 Delivery Room Air Capillary Refill : Less Than 3 Seconds Height, Weight, BMI Height: 5'6.00" Weight: 160lbs. 9.0oz. 72.823349bd; 31.2 BMI Method:Stated Progress/Results/Core Measures Results/Orders Lab Results Laboratory Tests Test 01/01/19 18:39 Range/Units White Blood Count 6.2 4.3-11.0 10^3/uL Red Blood Count 3.85 L 4.35-5.85 10^6/uL Hemoglobin 11.3 L 11.5-16.0 G/DL Hematocrit 34 L 35-52 % Mean Corpuscular Volume 88 80-99 FL Mean Corpuscular Hemoglobin 29 25-34 PG Mean Corpuscular Hemoglobin Concent 33 32-36 G/DL Red Cell Distribution Width 12.8 10.0-14.5 % Platelet Count 252 130-400 10^3/uL Mean Platelet Volume 11.5 H 7.4-10.4 FL Neutrophils (%) (Auto) 57 42-75 % Lymphocytes (%) (Auto) 28 12-44 % Monocytes (%) (Auto) 11 0-12 % Eosinophils (%) (Auto) 3 0-10 % Basophils (%) (Auto) 1 0-10 % Neutrophils # (Auto) 3.5 1.8-7.8 X 10^3 Lymphocytes # (Auto) 1.7 1.0-4.0 X 10^3 Monocytes # (Auto) 0.7 0.0-1.0 X 10^3 Eosinophils # (Auto) 0.2 0.0-0.3 10^3/uL Basophils # (Auto) 0.1 0.0-0.1 10^3/uL Sodium Level 138 135-145 MMOL/L Potassium Level 4.9 3.6-5.0 MMOL/L Chloride Level 109 H 98-107 MMOL/L Carbon Dioxide Level 18 L 21-32 MMOL/L Anion Gap 11 5-14 MMOL/L Blood Urea Nitrogen 63 H 7-18 MG/DL Creatinine 2.45 H 0.60-1.30 MG/DL Estimat Glomerular Filtration Rate 22 BUN/Creatinine Ratio 26 Glucose Level 225 H 70-105 MG/DL Lactic Acid Level 0.56 0.50-2.00 MMOL/L Calcium Level 9.0 8.5-10.1 MG/DL Corrected Calcium 9.5 8.5-10.1 MG/DL Total Bilirubin 0.2 0.1-1.0 MG/DL Aspartate Amino Transf (AST/SGOT) 41 H 5-34 U/L Alanine Aminotransferase (ALT/SGPT) 42 0-55 U/L Alkaline Phosphatase 143 H 40-136 U/L C-Reactive Protein High Sensitivity 0.38 0.00-0.50 MG/DL Total Protein 6.9 6.4-8.2 GM/DL Albumin 3.4 3.2-4.5 GM/DL My Orders Orders - ROSS ANG Foot, Left, 3 Views (01/01/19 18:07) Cbc With Automated Diff (01/01/19 18:07) Comprehensive Metabolic Panel (01/01/19 18:07) Lactic Acid Analyzer (01/01/19 18:07) Hs C Reactive Protein (01/01/19 18:07) Blood Culture (01/01/19 18:07) Vital Signs/I&O 01/01/19 17:34 Temp 98.3 Pulse 89 Resp 20 B/P (MAP) 147/93 (111) Pulse Ox 97 O2 Delivery Room Air Blood Pressure Mean: 111 Departure Impression Primary Impression: Healing second and fifth metatarsal fractures Disposition: 01 HOME, SELF-CARE Condition: Stable/Unchanged Departure-Patient Inst. Decision time for Depature: 20:20 Referrals: [facility] (PCP) Primary Care Physician DIOMEDES SMITH (Family) Primary Care Physician Patient Instructions: Foot Fracture (DC) Add. Discharge Instructions: Continue to wear your splint as previously instructed. Elevate the foot as much as possible to help with swelling. Follow-up with [facility] within 1 week for recheck. Take medication as directed. For pain unrelieved by medication you may use Tylenol. Do not exceed your daily limit of Tylenol 4000 mg. Return back to the emergency room for worsening symptoms or concerns as needed. All discharge instructions reviewed with patient and/or family. Voiced understanding. Scripts Hydrocodone Bit/Acetaminophen (Hydrocodone/Acetaminophen 5/325mg Tablet) 1 Tab Tab 1 EACH PO Q4-6HR PRN for PAIN-MODERATE MDD 10 for 3 Days, #10 TAB Prov: ROSS ANG 01/01/19 ROSS ANG January 01, 2019 20:21
[2019-01-01] MEDS ORDERED: RX-HYDROCODONE/APAP 5/325 MG #4 TAB PK PO PRN (20:30)
[2019-01-01 20:35] VITALS: BP 147/93
== END 2019-01-01 20:35 | disposition home or self-care (01) ==
LOC: EDUNIT# 17:24 → ER 17:25
DX: S92.352D Displaced fracture of fifth metatarsal bone, left foot, subsequent encounter for fracture with routine healing (principal); I10 Essential (primary) hypertension; G40.909 Epilepsy, unspecified, not intractable, without status epilepticus; G62.9 Polyneuropathy, unspecified; M86.171 Other acute osteomyelitis, right ankle and foot; E11.9 Type 2 diabetes mellitus without complications; F41.9 Anxiety disorder, unspecified; F32.9 Major depressive disorder, single episode, unspecified; B19.20 Unspecified viral hepatitis C without hepatic coma; D64.9 Anemia, unspecified; Z86.14 Personal history of Methicillin resistant Staphylococcus aureus infection; Z80.0 Family history of malignant neoplasm of digestive organs; Z82.49 Family history of ischemic heart disease and other diseases of the circulatory system; Z89.421 Acquired absence of other right toe(s); Z87.19 Personal history of other diseases of the digestive system; Z87.448 Personal history of other diseases of urinary system; Z87.440 Personal history of urinary (tract) infections; Z79.82 Long term (current) use of aspirin; Z79.4 Long term (current) use of insulin; Z87.891 Personal history of nicotine dependence; Z98.890 Other specified postprocedural states; X58.XXXD Exposure to other specified factors, subsequent encounter
CPT/HCPCS: 36415; 73630; 80053; 83605; 85025; 86141; 87040

== ENCOUNTER → 2019-01-07 | Outpatient (CLI) | payer MEDICAID ==
--- NOTE | 2019-01-07 15:23 | Diagnostic Imaging Report ---
PROCEDURE: MR imaging left lower extremity without contrast. TECHNIQUE: Multiplanar, multisequence non contrast enhanced MR imaging of the left lower extremity was accomplished. INDICATION: Forefoot cellulitis. COMPARISON: Left foot radiographs of 01/01/2019. FINDINGS: Bones: Multifocal bone marrow edema is seen throughout the midfoot involving each of the tarsal bones. Cystic change is also present throughout a few of the tarsal bones and there is probable insufficiency-type fracture in the navicular. Hypertrophic nonunited fracture within the second metatarsal diaphysis. Fourth metatarsal midshaft fracture has edema present and no features of healing. Healed fracture of the fifth metatarsal diaphysis. Soft tissues: Extensive subcutaneous edema and swelling throughout the midfoot, hindfoot, and forefoot. The musculature of the foot is mildly atrophic which can be seen with longstanding diabetes. No nodular thickening of the plantar fascia. No drainable fluid collection. IMPRESSION: 1. Multifocal bone marrow edema throughout the midfoot and metatarsals is felt most likely to be due to neuropathic arthropathy and fractures. There is no definitive dermal wound that would increase the possibility of osteomyelitis being present. Correlation for history of diabetes is recommended. 2. No drainable abscess. Dictated by: Dictated on workstation # [id number]
== END ==
LOC: RAD 13:28
PROVIDERS: ATTEND Nurse Practitioner Community Health
DX: L03.116 Cellulitis of left lower limb (principal); E11.9 Type 2 diabetes mellitus without complications; R60.0 Localized edema

== ENCOUNTER 2019-02-25 16:58 | Emergency (ER) | payer SELFPAY ==
[~2019-02-25] VITALS: Ht 167.6 cm; Wt 72.8 kg
[2019-02-25] MEDS ORDERED: NS IV 1000 ML 1,000 ML IV SCH (17:15)
--- NOTE | 2019-02-25 17:34 | ED GU-Female ---
General Chief Complaint: - Urinary Stated Complaint: BACK/ABD PAIN;TROUBLE URINATING Nursing Triage Note: PT STATES BURNING AND PAIN WITH URINATION FOR 1 WEEK. PT HAS HISTORY OF KIDNEY FAILURE AND DIABETES. PT STATES SHE IS NOT ON DIALYSIS. PT DENIES N/V. PT STATES DIARRHEA FOR 1 WEEK. PT DENIES FEVER. PT DENIES VAGINAL DISCHARGE. PT STATES LMP 2 WEEKS AGO. PT DENIES CHANCE OF BEING . Nursing Sepsis Screen: No Definite Risk Source: patient Exam Limitations: no limitations History of Present Illness Date Seen by Provider: Feb 25, 2019 Time Seen by Provider: 17:32 Initial Comments To ER with reports of burning on urination for 1 week, diarrhea for one week without blood or mucus. Suprapubic abdominal cramping. Denies nausea vomiting fevers or chills. Timing/Duration: constant, week Severity/Quality: moderate Location: suprapubic Radiation: none Activities at Onset: none Prior Genitourinary Problems: none Associated Symptoms: abdominal pain (suprapubic), dysuria Allergies and Home Medications Allergies Coded Allergies: gluten (Verified Allergy, Unknown, 12/20/18) Home Medications Acetaminophen 500 Mg Tablet, 500-1,000 MG PO Q6H PRN for PAIN-MILD, (Reported) Acetaminophen 325 Mg Tablet, 2 TAB PO Q6H PRN for PAIN-MILD Prescribed by: KASANDRA SANCHEZ on 10/01/18942 Aspirin 81 Mg Tablet.dr, 81 MG PO BID, (Reported) Buspirone HCl 30 Mg Tablet, 30 MG PO TID, (Reported) Cefuroxime Axetil 250 Mg Tablet, 250 MG PO BID Prescribed by: LATOYA CHRISTIANSEN on 02/25/19 175 Clonidine HCl 0.2 Mg Tablet, 0.2 MG PO BID, (Reported) Cyclobenzaprine HCl 10 Mg Tablet, 10 MG PO TID PRN for MUSCLE SPASMS, (Reported) Doxycycline Hyclate 100 Mg Tablet, 100 MG PO BID Prescribed by: CHAUNCEY THOMAS on 12/20/181909 Ferrous Sulfate 325 Mg Tablet, 325 MG PO BID WITH MEALS Prescribed by: KASANDRA SANCHEZ on 10/01/18 09 Furosemide 20 Mg Tablet, 20 MG PO DAILY, (Reported) Gabapentin 800 Mg Tablet, 800 MG PO QID, (Reported) Hydrocodone Bit/Acetaminophen 1 Tab Tab, 1 EACH PO Q6H PRN for PAIN-MODERATE Prescribed by: ROSS ANG on 10/04/18 1134 Hydrocodone Bit/Acetaminophen 1 Tab Tab, 1 EACH PO Q4-6HR PRN for PAIN-MODERATE Prescribed by: ROSS ANG on 01/01/192020 Hydrocodone/Acetaminophen 1 Each Tablet, 1 TAB PO Q4-6HR Prescribed by: CHAUNCEY THOMAS on 12/20/181909 Insulin Glargine,Hum.rec.anlog 100 Unit/1 Ml Insuln.pen, 24 UNITS SC HS, (Reported) Insulin Lispro 100 Unit/1 Ml Insuln.pen, 6 UNITS SQ AC, (Reported) Levofloxacin 250 Mg Tablet, 250 MG PO DAILY Prescribed by: CHAUNCEY THOMAS on 12/20/181909 Nifedipine 60 Mg Tab.er.24, 60 MG PO BID, (Reported) Phenazopyridine HCl 100 Mg Tablet, 100 MG PO TID Prescribed by: LATOYA CHRISTIANSEN on 02/25/191749 Pramipexole Di-HCl 0.25 Mg Tablet, 0.25 MG PO HS, (Reported) Vit W-Ca,Fe,FA(<1 mg) 1 Each Tablet, 1 TAB PO DAILY, (Reported) Patient Home Medication List Home Medication List Reviewed: Yes Review of Systems Review of Systems Constitutional: see HPI EENTM: see HPI Respiratory: no symptoms reported Cardiovascular: no symptoms reported Gastrointestinal: abdominal pain, diarrhea Genitourinary: see HPI, burning Musculoskeletal: no symptoms reported Skin: no symptoms reported Psychiatric/Neurological: No Symptoms Reported Endocrine: No Symptoms Reported Past Owxfmfd-Btwift-Eqmeti Hx Patient Social History Alcohol Use: Denies Use Recreational Drug Use: No Drug of Choice: + IV DRUG USE, EXTENSIVE--WILL NOT STATE WHAT DRUGS SHE HAS USED. Type Used: Cigarettes Former Smoker, Quit: Oct 04, 2018 2nd Hand Smoke Exposure: Yes Recent Foreign Travel: No Contact w/Someone Who Travel: No Recent Infectious Disease Expo: No Recent Hopitalizations: Yes (HOSPITALIZED AT [facility] FOR RELEASED TWO WEEKS AGO) Physical Abuse: No Sexual Abuse: No Mistreated: No Fear: No Immunizations Up To Date Tetanus Booster (TDap): Unknown PED Vaccines UTD: No Date of Influenza Vaccine: Jul 03, 2016 Seasonal Allergies Seasonal Allergies: No Past Medical History Surgeries: Yes Amputation, Cardiac, Section, Orthopedic Respiratory: Yes (TOBACCOISM) Cardiac: Yes Hypertension Neurological: Yes (SEIZURES R/T DIABETES) Neuropathy, Seizure Disorder Reproductive Disorders: No Female Reproductive Disorders: Denies Sexually Transmitted Disease: No HIV/AIDS: No Genitourinary: Yes Bladder Infection, Renal Failure, UTI-Chronic Gastrointestinal: Yes (CELIAC DISEASE; HEPATITIS C--NO TREATMENT) Hepatitis Musculoskeletal: Yes (osteomyelitis leading to toe amputation on the right) Fractures Endocrine: Yes Diabetes, Insulin dep HEENT: No Loss of Vision: Bilateral Hearing Impairment: Denies Cancer: No Psychosocial: Yes (POLYSUBSTANCE ABUSE) Anxiety, Depression Integumentary: Yes (MRSA) Blood Disorders: Yes (HEP C+, ANEMIA) Adverse Reaction/Blood Tranf: No Family Medical History FH: COPD (chronic obstructive pulmonary disease) 19 FATHER FH: congestive heart failure 19 FATHER FH: liver cancer 19 MOTHER No Pertinent Family Hx Physical Exam Vital Signs Vital Signs - First Documented 02/25/19 17:08 Temp 98.0 Pulse 92 Resp 18 B/P (MAP) 131/94 (106) Pulse Ox 99 O2 Delivery Room Air Capillary Refill : Less Than 3 Seconds Height, Weight, BMI Height: 5'6.00" Weight: 160lbs. 9.0oz. 72.844390bu; 31.2 BMI Method:Stated General Appearance: WD/WN, no apparent distress HEENT: PERRL/EOMI, normal ENT inspection Respiratory: no respiratory distress Gastrointestinal: normal bowel sounds, soft, tenderness (suprapubic) Extremities: normal range of motion, non-tender Neurologic/Psychiatric: alert, normal mood/affect, oriented x 3 Skin: normal color, warm/dry Progress/Results/Core Measures Suspected Sepsis Recent Fever Within 48 Hours: No Infection Criteria Present: Suspected New Infection New/Unexplained Altered Menta: No Sepsis Screen: No Definite Risk SIRS Temperature:98.0 Pulse: 92 Respiratory Rate: 18 Laboratory Tests 02/25/19 17:26: White Blood Count 6.1 Blood Pressure 131 /94 Mean: 106 Laboratory Tests 02/25/19 17:26: Creatinine 2.35H, Platelet Count 333, Total Bilirubin 0.3 Results/Orders Lab Results Laboratory Tests Test 02/25/19 17:26 Range/Units White Blood Count 6.1 4.3-11.0 10^3/uL Red Blood Count 4.22 L 4.35-5.85 10^6/uL Hemoglobin 11.8 11.5-16.0 G/DL Hematocrit 36 35-52 % Mean Corpuscular Volume 85 80-99 FL Mean Corpuscular Hemoglobin 28 25-34 PG Mean Corpuscular Hemoglobin Concent 33 32-36 G/DL Red Cell Distribution Width 13.6 10.0-14.5 % Platelet Count 333 130-400 10^3/uL Mean Platelet Volume 11.2 H 7.4-10.4 FL Neutrophils (%) (Auto) 48 42-75 % Lymphocytes (%) (Auto) 37 12-44 % Monocytes (%) (Auto) 10 0-12 % Eosinophils (%) (Auto) 3 0-10 % Basophils (%) (Auto) 2 0-10 % Neutrophils # (Auto) 2.9 1.8-7.8 X 10^3 Lymphocytes # (Auto) 2.3 1.0-4.0 X 10^3 Monocytes # (Auto) 0.6 0.0-1.0 X 10^3 Eosinophils # (Auto) 0.2 0.0-0.3 10^3/uL Basophils # (Auto) 0.1 0.0-0.1 10^3/uL Urine Color YELLOW Urine Clarity CLOUDY H Urine pH 5 5-9 Urine Specific [place] 1.020 1.016-1.022 Urine Protein 4+ NEGATIVE Urine Glucose (UA) 1+ H NEGATIVE Urine Ketones NEGATIVE NEGATIVE Urine Nitrite POSITIVE H NEGATIVE Urine Bilirubin NEGATIVE NEGATIVE Urine Urobilinogen NORMAL NORMAL MG/DL Urine Leukocyte Esterase 3+ H NEGATIVE Urine RBC (Auto) 1+ H NEGATIVE Urine RBC RARE /HPF Urine WBC >100 H /HPF Urine Squamous Epithelial Cells >50 H /HPF Urine Crystals NONE /LPF Urine Bacteria MODERATE H /HPF Urine Casts NONE /LPF Urine Mucus NEGATIVE /LPF Urine Culture Indicated YES Sodium Level 137 135-145 MMOL/L Potassium Level 4.9 3.6-5.0 MMOL/L Chloride Level 110 H 98-107 MMOL/L Carbon Dioxide Level 15 L 21-32 MMOL/L Anion Gap 12 5-14 MMOL/L Blood Urea Nitrogen 24 H 7-18 MG/DL Creatinine 2.35 H 0.60-1.30 MG/DL Estimat Glomerular Filtration Rate 24 BUN/Creatinine Ratio 10 Glucose Level 138 H 70-105 MG/DL Calcium Level 8.7 8.5-10.1 MG/DL Corrected Calcium 9.0 8.5-10.1 MG/DL Total Bilirubin 0.3 0.1-1.0 MG/DL Aspartate Amino Transf (AST/SGOT) 31 5-34 U/L Alanine Aminotransferase (ALT/SGPT) 39 0-55 U/L Alkaline Phosphatase 157 H 40-136 U/L Total Protein 7.2 6.4-8.2 GM/DL Albumin 3.6 3.2-4.5 GM/DL Serum Test, Qualitative NEGATIVE NEGATIVE Urine Opiates Screen POSITIVE H NEGATIVE Urine Oxycodone Screen NEGATIVE NEGATIVE Urine Methadone Screen NEGATIVE NEGATIVE Urine Propoxyphene Screen NEGATIVE NEGATIVE Urine Barbiturates Screen NEGATIVE NEGATIVE Ur Tricyclic Antidepressants Screen NEGATIVE NEGATIVE Urine Phencyclidine Screen NEGATIVE NEGATIVE Urine Amphetamines Screen NEGATIVE NEGATIVE Urine Methamphetamines Screen NEGATIVE NEGATIVE Urine Benzodiazepines Screen NEGATIVE NEGATIVE Urine Cocaine Screen NEGATIVE NEGATIVE Urine Cannabinoids Screen POSITIVE H NEGATIVE My Orders Orders - LATOYA CHRISTIANSEN APRN Cbc With Automated Diff (02/25/19 17:14) Drug Screen Stat (Urine) (02/25/19 17:14) Comprehensive Metabolic Panel (02/25/19 17:14) Ua Culture If Indicated (02/25/19 17:14) Hcg,Qualitative Serum (02/25/19 17:14) Ed Iv/Invasive Line Start (02/25/19 17:14) Ns Iv 1000 Ml (Sodium Chloride 0.9%) (02/25/19 17:15) Urine Culture (02/25/19 17:26) Ketorolac Injection (Toradol Injection) (02/25/19 18:00) Phenazopyridine Tablet (Pyridium Tablet) (02/25/19 18:00) Ceftriaxone For Iv Use (Rocephin For I (02/25/19 18:00) Vital Signs/I&O 02/25/19 17:08 Temp 98.0 Pulse 92 Resp 18 B/P (MAP) 131/94 (106) Pulse Ox 99 O2 Delivery Room Air Capillary Refill : Less Than 3 Seconds Blood Pressure Mean: 106 Departure Impression Primary Impression: Urinary tract infection Qualified Codes: N30.00 - Acute cystitis without hematuria Additional Impression: Chronic renal insufficiency Disposition: 01 HOME, SELF-CARE Condition: Stable Departure-Patient Inst. Decision time for Depature: 17:49 Referrals: [facility] (PCP) Primary Care Physician DIOMEDES SMITH (Family) Primary Care Physician Patient Instructions: Urinary Tract Infection, Adult (DC) Add. Discharge Instructions: 1. Increase fluid intake 2. Tylenol and ibuprofen for pain control 3. Medication as directed. All discharge instructions reviewed with patient and/or family. Voiced understanding. Scripts Cefuroxime Axetil (Cefuroxime) 250 Mg Tablet 250 MG PO BID, #10 TAB Prov: LATOYA CHRISTIANSEN [employer] DOCKET MANAGER 02/25/19 Phenazopyridine HCl (Pyridium) 100 Mg Tablet 100 MG PO TID, #6 TAB Prov: LATOYA CHRISTIANSEN LITIGATION DOCKET MANAGER 02/25/19 LATOYA CHRISTIANSEN LIT[employer]ATION DOCKET MANAGER Feb 25, 2019 17:34
[2019-02-25 17:36] LABS: BILIRUBIN,URINE NEGATIVE (NEGATIVE); COLOR,URINE YELLOW; GLUCOSE, URINE (UA) 1+ (NEGATIVE); KETONES,URINE NEGATIVE (NEGATIVE); LEUKOCYTE ESTERASE ,URINE 3+ (NEGATIVE); NITRITE,URINE POSITIVE (NEGATIVE); PH,URINE 5 (5-9); PROTEIN,URINE 4+ (NEGATIVE); UROBILINOGEN,URINE NORMAL (NORMAL)
[2019-02-25 17:37] LABS: BASOPHILS # (AUTO) 0.1 10^3/uL (0.0-0.1); BASOPHILS % (AUTO) 2 % (0-10); EOSINOPHILS # (AUTO) 0.2 10^3/uL (0.0-0.3); EOSINOPHILS % (AUTO) 3 % (0-10); HEMATOCRIT 36 % (35-52); HEMOGLOBIN 11.8 G/DL (11.5-16.0); LYMPHOCYTES # (AUTO) 2.3 X 10^3 (1.0-4.0); LYMPHOCYTES % (AUTO) 37 % (12-44); MEAN CORPUSCULAR HEMOGLOBIN 28 PG (25-34); MEAN CORPUSCULAR HGB CONC 33 G/DL (32-36); MEAN CORPUSCULAR VOLUME 85 FL (80-99); MEAN PLATELET VOLUME 11.2 FL (7.4-10.4); MONOCYTES # (AUTO) 0.6 X 10^3 (0.0-1.0); MONOCYTES % (AUTO) 10 % (0-12); NEUTROPHILS # (AUTO) 2.9 X 10^3 (1.8-7.8); NEUTROPHILS % (AUTO) 48 % (42-75); PLATELET COUNT 333 10^3/uL (130-400); RED CELL DISTRIBUTION WIDTH 13.6 % (10.0-14.5); WHITE BLOOD COUNT 6.1 10^3/uL (4.3-11.0)
[2019-02-25 17:43] LABS: BACTERIA,URINE MODERATE /HPF; CLARITY,URINE CLOUDY; RBC,URINE RARE /HPF; SQUAMOUS EPITHELIAL CELL,UR >50 /HPF; WBC,URINE >100 /HPF
[2019-02-25 17:45] LABS: AMPHETAMINE SCREEN, URINE NEGATIVE (NEGATIVE); BARBITURATE SCREEN URINE NEGATIVE (NEGATIVE); BENZODIAZEPINES SCREEN URINE NEGATIVE (NEGATIVE); CANNABINOID SCREEN, URINE POSITIVE (NEGATIVE); COCAINE SCREEN URINE NEGATIVE (NEGATIVE); METHADONE STAT NEGATIVE (NEGATIVE); METHAMPHETAMINE SCREEN URINE S NEGATIVE (NEGATIVE); OPIATE SCREEN URINE POSITIVE (NEGATIVE); OXYCODONE STAT NEGATIVE (NEGATIVE); PROPOXYPHENE STAT NEGATIVE (NEGATIVE); TRICYCLIC ANTIDEPRESSANTS SCRE NEGATIVE (NEGATIVE)
[2019-02-25] MEDS ORDERED: PHEN-639 PO (17:50)
[2019-02-25] MEDS ORDERED: CEFU250T80 PO (17:50)
[2019-02-25 17:56] LABS: ALBUMIN 3.6 GM/DL (3.2-4.5); BILIRUBIN,TOTAL 0.3 MG/DL (0.1-1.0); CALCIUM 8.7 MG/DL (8.5-10.1); CREATININE SERUM 2.35 MG/DL (0.60-1.30); POTASSIUM 4.9 MMOL/L (3.6-5.0); TOTAL PROTEIN 7.2 GM/DL (6.4-8.2)
[2019-02-25] MEDS ORDERED: PHENAZOPYRIDINE 100 MG (PYRIDIUM) TABLET PO ONE (18:00)
[2019-02-25] MEDS ORDERED: cefTRIAXone FOR IV USE 1,000 MG in WATER (STERILE) FOR INJECTION 10 ML IV ONE (18:00)
[2019-02-25] MEDS ORDERED: KETOROLAC 30 MG/ML VIAL IVP ONE (18:00)
[2019-02-25 18:33] VITALS: BP 131/94
== END 2019-02-25 18:34 | disposition home or self-care (01) ==
LOC: EDUNIT# 16:58 → ER 16:59
DX: N39.0 Urinary tract infection, site not specified (principal); I12.9 Hypertensive chronic kidney disease with stage 1 through stage 4 chronic kidney disease, or unspecified chronic kidney disease; N18.9 Chronic kidney disease, unspecified; E11.22 Type 2 diabetes mellitus with diabetic chronic kidney disease; G40.909 Epilepsy, unspecified, not intractable, without status epilepticus; E11.40 Type 2 diabetes mellitus with diabetic neuropathy, unspecified; B19.20 Unspecified viral hepatitis C without hepatic coma; E11.69 Type 2 diabetes mellitus with other specified complication; M86.9 Osteomyelitis, unspecified; F41.9 Anxiety disorder, unspecified; F32.9 Major depressive disorder, single episode, unspecified; Z80.0 Family history of malignant neoplasm of digestive organs; Z87.440 Personal history of urinary (tract) infections; Z79.82 Long term (current) use of aspirin; Z79.4 Long term (current) use of insulin; Z87.891 Personal history of nicotine dependence; Z77.22 Contact with and (suspected) exposure to environmental tobacco smoke (acute) (chronic); Z89.421 Acquired absence of other right toe(s); Z82.49 Family history of ischemic heart disease and other diseases of the circulatory system
CPT/HCPCS: 36415; 80053; 80306; 81000; 84703; 85025; 87077; 87088; 87186; 96361; 96374; 96375

== ENCOUNTER 2019-04-06 16:49 | Emergency (ER) | payer MEDICAID ==
[~2019-04-06] VITALS: Ht 170.2 cm; Wt 71.2 kg
[~2019-04-06 16:49] MED LIST changes: +CEFU250T80 PO; +PHEN-639 PO
--- NOTE | 2019-04-06 17:05 | NUR ---
ice pack placed on injury
--- NOTE | 2019-04-06 17:29 | ED Lower Extremity ---
General Chief Complaint: Lower Extremity Stated Complaint: L FOOT PAIN Nursing Triage Note: pt fell down the stairs two months ago. Pt is supposed to see surgeon at in 2 weeks but she states she can not handle the pain. Pt ambulated to triage room Nursing Sepsis Screen: No Definite Risk Source: patient (DIFFICULT HISTORIAN--GIVES CONFLICTING AND CONVOLUTED INFORMATION.), old records History of Present Illness Date Seen by Provider: Apr 06, 2019 Time Seen by Provider: 17:15 Initial Comments PT ARRIVES VIA POV AND WALKS INTO ER ON HER OWN C/O LEFT FOOT PAIN FOR "A COUPLE OF MONTHS" CLAIMS SHE BROKE IT, A COUPLE OF MONTHS AGO. DENIES ANY NEW INJURY CLAIMS INCREASED PAIN FOR HE LAST 3-4 DAYS,ALSO HAVING SWELLING TO ARCH OF LEFT FOOT. PT STATES SHE HAS SEEN DR. CHILDS, ORTHOPEDIC SURGEON AT --BUT NOT RECENTLY SHE STATES HE HAS REFERRED HER TO UNKNOWN SURGEON, AND STATES SHE HAS AN APPOINTMENT IN A COUPLE OF WEEKS STATES SHE HAS BEEN TAKING TYLENOL AND MOTRIN AND IT IS NOT HELPING STATES "I HAVE KIDNEY FAILURE AND I'M NOT SUPPOSED TO TAKE NSAIDS BUT I TOOK IB UPROFEN" ON REVIEW OF OLD RECORDS, WAS ACTUALLY SOMETIME IN SEPTEMBER OF THIS YEAR, THAT SHE FRACTURED THIS FOOT ( METATARSAL #2, WITH OLDER FX METATARSAL #5 ) AND WAS HOSPITALIZED FOR SUBSEQUENT CELLULITIS --PT WAS AT THE TIME. 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 SUBSEQUENT TO METATARSAL FRACTURE PER [facility], PT HAS HAD 35 RX'S FOR NARCOTICS AND SEDATIVES BY 17 DIFFERENT PROVIDERS, AND FILLED AT 5 DIFFERENT PHARMACIES IN LESS THAN A YEAR, AND FROM MULTIPLE DIFFERENT FACILITIES MOST RECENTLY SHE FILLED RX'S FOR TRAMADOL FOR #21 FILLED ON 03/24, #84 FILLED ON 03/09/19, AND HAS FILLED MULTIPLE RX'S FOR THIS IN THE LAST FEW MONTHS HAS ALSO HAD MULTIPLE RX'S FOR HYDROCODONE AND OXYCODONE IN THE LAST FEW MONTHS WELL PT HAS HAD A MULTITUDE OF VISITS HERE, SINCE MOVING HERE IN 2017 PT IS TYPE 1 DIABETIC PCP: CHERELLE, ALARM OPERATOR DIOMEDES SMITH Allergies and Home Medications Allergies Coded Allergies: gluten (Verified Allergy, Unknown, 12/20/18) Home Medications Acetaminophen 500 Mg Tablet, 500-1,000 MG PO Q6H PRN for PAIN-MILD, (Reported) Acetaminophen 325 Mg Tablet, 2 TAB PO Q6H PRN for PAIN-MILD Prescribed by: KASANDRA SANCHEZ on 10/01/18942 Aspirin 81 Mg Tablet.dr, 81 MG PO BID, (Reported) Buspirone HCl 30 Mg Tablet, 30 MG PO TID, (Reported) Cefuroxime Axetil 250 Mg Tablet, 250 MG PO BID Prescribed by: LATOYA CHRISTIANSEN on 02/25/191749 Clonidine HCl 0.2 Mg Tablet, 0.2 MG PO BID, (Reported) Cyclobenzaprine HCl 10 Mg Tablet, 10 MG PO TID PRN for MUSCLE SPASMS, (Reported) Doxycycline Hyclate 100 Mg Tablet, 100 MG PO BID Prescribed by: CHAUNCEY THOMAS on 12/20/181909 Ferrous Sulfate 325 Mg Tablet, 325 MG PO BID WITH MEALS Prescribed by: KASANDRA SANCHEZ on 10/01/18942 Furosemide 20 Mg Tablet, 20 MG PO DAILY, (Reported) Gabapentin 800 Mg Tablet, 800 MG PO QID, (Reported) Hydrocodone Bit/Acetaminophen 1 Tab Tab, 1 EACH PO Q6H PRN for PAIN-MODERATE Prescribed by: ROSS ANG on 10/04/18 113 Hydrocodone Bit/Acetaminophen 1 Tab Tab, 1 EACH PO Q4-6HR PRN for PAIN-MODERATE Prescribed by: ROSS ANG on 01/01/192020 Hydrocodone/Acetaminophen 1 Each Tablet, 1 TAB PO Q4-6HR Prescribed by: CHAUNCEY THOMAS on 12/20/181909 Insulin Glargine,Hum.rec.anlog 100 Unit/1 Ml Insuln.pen, 24 UNITS SC HS, (Reported) Insulin Lispro 100 Unit/1 Ml Insuln.pen, 6 UNITS SQ AC, (Reported) Levofloxacin 250 Mg Tablet, 250 MG PO DAILY Prescribed by: CHAUNCEY THOMAS on 12/20/181909 Nifedipine 60 Mg Tab.er.24, 60 MG PO BID, (Reported) Phenazopyridine HCl 100 Mg Tablet, 100 MG PO TID Prescribed by: LATOYA CHRISTIANSEN on 02/25/191749 Pramipexole Di-HCl 0.25 Mg Tablet, 0.25 MG PO HS, (Reported) Vit W-Ca,Fe,FA(<1 mg) 1 Each Tablet, 1 TAB PO DAILY, (Reported) Patient Home Medication List Home Medication List Reviewed: Yes Review of Systems Constitutional: no symptoms reported Musculoskeletal: see HPI Skin: no symptoms reported Past Npvrijm-Unqwvy-Uokpdi Hx Past Med/Social Hx: Reviewed and Corrections made Patient Social History Alcohol Use: Past History (HISTORY OF ABUSE, WILL NOT STATE IF SHE IS STILL DRINKING) Recreational Drug Use: Yes (+ IV DRUG USE--EXTENSIVE--WILL NOT STATE WHAT DRUGS SHE HAS USED; HAS TESTED + FOR AMPHETAMINES, BENZO'S, THC, OPIATES IN THE PAST) Drug of Choice: + IV DRUG USE, EXTENSIVE--WILL NOT STATE WHAT DRUGS SHE HAS USED. Smoking Status: Current Everyday Smoker (2 PPD) Type Used: Cigarettes (2 PPD) 2nd Hand Smoke Exposure: Yes Recent Foreign Travel: No Contact w/Someone Who Travel: No Recent Infectious Disease Expo: No Recent Hopitalizations: Yes (HOSPITALIZED AT [facility]LE[facility]ED TWO WEEKS AGO) Immunizations Up To Date Tetanus Booster (TDap): Unknown PED Vaccines UTD: No Date of Influenza Vaccine: Jul 03, 2016 Seasonal Allergies Seasonal Allergies: No Past Medical History Surgeries: Yes (RIGHT 1ST AND 2ND TOES AMPUTATED; "OPEN HEART SURGERY" INFANT; X 3) Amputation, Cardiac, Section, Orthopedic Respiratory: Yes (TOBACCOISM) Cardiac: Yes ("OPEN HEART SURGERY" --PT HAS NO IDEA WHAT KIND OF BAUMANN RGERY/ WHAT KIND OF HEART PROBLEMS SHE HAD--SCAR IS TO LEFT LATERAL CHEST. SHE STATES SHE WAS 3 MONTHS PREMATURE) Congenital Heart Disease, Hypertension Neurological: Yes (SEIZURES R/T DIABETES) Neuropathy, Seizure Disorder Reproductive Disorders: No Female Reproductive Disorders: Denies Sexually Transmitted Disease: No HIV/AIDS: No Genitourinary: Yes Bladder Infection, Renal Failure, UTI-Chronic Gastrointestinal: Yes (CELIAC DISEASE; HEPATITIS C--NO TREATMENT) Hepatitis Musculoskeletal: Yes (RIGHT FIRST AND SECOND TOES AMPUTATED SECONDARY TO OSTEOMYELITIS SUBSEQUENT TO METATARSAL FRACTURE. ) Amputee, Fractures Endocrine: Yes Diabetes, Insulin dep HEENT: No Loss of Vision: Bilateral Hearing Impairment: Denies Cancer: No Psychosocial: Yes (POLYSUBSTANCE ABUSE) Anxiety, Depression Integumentary: Yes (MRSA) Blood Disorders: Yes (HEP C+, ANEMIA) Adverse Reaction/Blood Tranf: No Family Medical History FH: COPD (chronic obstructive pulmonary disease) 19 FATHER FH: congestive heart failure 19 FATHER FH: liver cancer 19 MOTHER No Pertinent Family Hx Physical Exam Vital Signs Vital Signs - First Documented 04/06/19 16:53 Temp 98.0 Pulse 92 Resp 20 B/P (MAP) 132/91 (105) Pulse Ox 100 Capillary Refill : Less Than 3 Seconds Height, Weight, BMI Height: 5'7.00" Weight: 157lbs. 9.0oz. [id number]; 31.2 BMI Method:Stated General Appearance: WD/WN, no apparent distress, other (PT ARRIVES BAREFOOT, FEET DIRTY, PT IS NOT WEARING ANY KIND OF BRACE/SPLINT, ETC. OR USING CRUTCHES, ETC. ) Feet: left foot other (LEFT FOOT-MODERATE SWELLING TO ARCH AND MEDIAL ASPECT OF FOOT. DISTAL MOTOR/VASCULAR INTACT; HAS SENSATION, BUT HAS PERIPHERAL NEUROPATHY. NO EXTERNAL EVIDENCE OF TRAUMA. NO ERYTHEMA. HAS MARKEDLY EXAGGERATED PAIN RESPONSE. ) Neurologic/Tendon: normal motor functions, normal tendon functions, other (PERIPHERAL NEUROPATHY) Neurologic/Psychiatric: alert, normal mood/affect Skin: normal color, warm/dry, tattoos/piercings, other (EXTENSIVE SORES/SCARS/SCABS TO MOST OF BODY, ESPECIALLY FACE AND ARMS. ALSO WITH EXTENSIVE TRACK MENARD AND SCARRING FROM IV DRUG USE TO ARMS ) Procedures/Interventions Splinting and Joint Reduction : Ted wrap: Yes Immobilizers: Step Light Walker s/m/lg Ordered: Crutches Progress/Results/Core Measures Results/Orders My Orders Orders - KAUSHAL LOUIS DO Foot, Left, 3 Views (04/06/19 17:18) Ted Bandage (04/06/19 18:34) Crutches (04/06/19 18:34) Steplite (04/06/19 18:34) Tramadol Tablet (Ultram Tablet) (04/06/19 18:34) Vital Signs/I&O 04/06/19 16:53 Temp 98.0 Pulse 92 Resp 20 B/P (MAP) 132/91 (105) Pulse Ox 100 Blood Pressure Mean: 105 Progress Progress Note : Progress Note REVIEWED MRI FROM 01/07/19--DIFFUSE BONE MARROW EDEMA OF ALL TARSALS AND MET ATARSALS, WITH SOME CYSTIC CHANGES WELL-DUE TO NEUROPATHY AND FRACTURES. NAVICULAR BONE INSUFFICIENCY FRACTURE, ALONG WITH FRACTURES OF METATARSALS 2,4,5 WITH VARIOUS STAGES OF HEALING AND NON-HEALING. ADVISED PT THAT I WOULD NOT BE GIVING HER ANY RX'S FOR PAIN MEDICATIONS, THESE ARE NOT ACUTE PROBLEMS, AND DUE TO HER HISTORY OF DRUG USE AND MULTIPLE RX'S FOR PAIN MEDICATIONS, ANY RX'S FOR PAIN MEDICATIONS WOULD NEED TO BE DONE THROUGH ONE PERSON AT [facility] ALSO STRESSED THE IMPORTANCE OF WEARING BOOT AND USING CRUTCHES, AND NO WEIGHT BEARING ALSO STRESSED THE IMPORTANCE OF FOLLOW UP WITH ORTHOPEDIC SURGEON THIS WEEK FOR FURTHER CARE Diagnostic Imaging Comments XRAYS LEFT FOOT--MULTIPLE METATARSAL AND TARSAL FRACTURES OF VARIOUS AGES AND VARIOUS STAGES OF HEALING. NEW FX 3RD METATARSAL AND PHALANX, WITH PROGRESSION OF CUNEIFORM FRACTURES--PER RADIOLOGIST VIA PHONE AT 1832 Reviewed: Reviewed by Me, Discussed w/Radiologist Departure Impression Primary Impression: Chronic pain in left foot Additional Impressions: MULTIPLE FRACTURES OF LEFT FOOT, VARIOUS AGES/STAGES OF HEALING/NON-HEALING Type 1 diabetes mellitus Disposition: 01 HOME, SELF-CARE Condition: Stable Departure-Patient Inst. Referrals: [facility] (PCP) Primary Care Physician DIOMEDES SMITH (Family) Primary Care Physician Patient Instructions: Chronic Pain (DC), Diabetes Type 1, Adult (DC), Foot Fracture (DC) Add. Discharge Instructions: WEAR TED WRAP AND BOOT, AND USE CRUTCHES AT ALL TIMES--NO WEIGHT BEARING ELEVATE FOOT MUCH POSSIBLE FOLLOW UP WITH ORTHOPEDIC SURGEON AT THIS WEEK FOR FURTHER CARE FOLLOW UP WITH [facility] FOR ANY PAIN MEDICATIONS All discharge instructions reviewed with patient and/or family. Voiced understanding. KAUSHAL LOUIS DO Apr 06, 2019 17:29
--- NOTE | 2019-04-06 18:24 | NUR ---
pt stating she is still in a lot of pain and has been waiting awhile. Physician notified
--- NOTE | 2019-04-06 18:45 | Diagnostic Imaging Report ---
EXAMINATION: Left foot radiographs, 3 views. COMPARISON: January 01, 2019. HISTORY: 33-year-old female, fell down stairs two months ago. Left foot pain and swelling. FINDINGS: There is a chronic appearing fracture deformity of the fifth metatarsal diaphysis without currently visible fracture line. There is a comminuted displaced fracture of the fourth metatarsal mid to distal diaphysis with healing response which is a new finding since January 01, 2019. There is a visible fracture line. There is a new mildly displaced fracture involving the third metatarsal head and neck. There is extension of the fracture near the lateral margin of the articulating surface. There is also a new essentially nondisplaced fracture involving the proximal metaphysis of the third proximal phalanx. There is partial interval healing response. There is mild flattening of the second metatarsal head similar to comparison exam. There is interval healing response at the site of previously noted second metatarsal fracture in its proximal aspect. There is a bipartite medial sesamoid. The bones appear demineralized. There is a comminuted fracture deformity of the medial cuneiform. The middle cuneiform is not well assessed and also potentially could be fractured. There are areas of ossification adjacent to the proximal and medial aspect of the medial cuneiform as well as areas of abnormal ossification projecting dorsally at the level of the midfoot. There is no tibiotalar joint effusion. There is no identified radiopaque foreign body. There is diffuse dorsal soft tissue swelling at the level of the foot. IMPRESSION: Multiple fractures involving the metatarsals and third proximal phalanx as well as the medial and potentially middle cuneiforms with interval progression of findings since January 01, 2019 as described in detail above. Dictated by: Dictated on workstation # [id number]
[2019-04-06 18:55] VITALS: BP 132/68
== END 2019-04-06 18:55 | disposition home or self-care (01) ==
LOC: EDUNIT# 16:49 → ER 16:49
DX: S92.512A Displaced fracture of proximal phalanx of left lesser toe(s), initial encounter for closed fracture (principal); S92.332A Displaced fracture of third metatarsal bone, left foot, initial encounter for closed fracture; I10 Essential (primary) hypertension; E10.9 Type 1 diabetes mellitus without complications; G40.909 Epilepsy, unspecified, not intractable, without status epilepticus; G62.9 Polyneuropathy, unspecified; F41.9 Anxiety disorder, unspecified; F32.9 Major depressive disorder, single episode, unspecified; D64.9 Anemia, unspecified; B19.20 Unspecified viral hepatitis C without hepatic coma; H54.7 Unspecified visual loss; F19.10 Other psychoactive substance abuse, uncomplicated; F17.210 Nicotine dependence, cigarettes, uncomplicated; Z87.440 Personal history of urinary (tract) infections; Z87.81 Personal history of (healed) traumatic fracture; Z87.448 Personal history of other diseases of urinary system; Z89.421 Acquired absence of other right toe(s); Z79.82 Long term (current) use of aspirin; Z79.4 Long term (current) use of insulin; Z82.49 Family history of ischemic heart disease and other diseases of the circulatory system; Z80.0 Family history of malignant neoplasm of digestive organs; W10.9XXA Fall (on) (from) unspecified stairs and steps, initial encounter
CPT/HCPCS: 73630

== ENCOUNTER 2019-09-11 22:38 | Emergency (ER) | payer SELFPAY ==
[~2019-09-11 22:38] MED LIST changes: +ASCO-413 PO; -ASCO500T5 PO; +METF500T19 PO; -METF500T8 PO; +OMEP40CA27 PO; -OMEP40CA36 PO; -TRAM50TA2 PO; +TRM50T PO
--- NOTE | 2019-09-12 00:39 | ED Lower Extremity ---
General Chief Complaint: Lower Extremity Stated Complaint: INJ LEFT FOOT Nursing Triage Note: AMBULATORY TO ED ROOM 5 WITH C/O LEFT ANKLE PAIN AFTER TRIPPING AND FALLING ON IT. Nursing Sepsis Screen: No Definite Risk Source: patient, old records Exam Limitations: no limitations History of Present Illness Date Seen by Provider: Sep 11, 2019 Time Seen by Provider: 22:52 Initial Comments This 34-year-old young lady presents to the emergency room with pain in the left ankle and foot after tripping on her stairs and twisting it. She has had life skills coach haley problems with this foot due to prior fracture and infection. She has pain throughout much of her foot no and on the lateral ankle as well. She denies any other injury. She has not taken any medications yet for the pain. She is a type I diabetic Allergies and Home Medications Allergies Coded Allergies: gluten (Verified Allergy, Unknown, 12/20/18) Home Medications Acetaminophen 500 Mg Tablet, 500-1,000 MG PO Q6H PRN for PAIN-MILD, (Reported) Acetaminophen 325 Mg Tablet, 2 TAB PO Q6H PRN for PAIN-MILD Prescribed by: KASANDRA SANCHEZ on 10/01/18 09 Aspirin 81 Mg Tablet.dr, 81 MG PO BID, (Reported) Buspirone HCl 30 Mg Tablet, 30 MG PO TID, (Reported) Cefuroxime Axetil 250 Mg Tablet, 250 MG PO BID Prescribed by: LATOYA CHRISTIANSEN on 02/25/191749 Clonidine HCl 0.2 Mg Tablet, 0.2 MG PO BID, (Reported) Cyclobenzaprine HCl 10 Mg Tablet, 10 MG PO TID PRN for MUSCLE SPASMS, (Reported) Doxycycline Hyclate 100 Mg Tablet, 100 MG PO BID Prescribed by: CHAUNCEY THOMAS on 12/20/181909 Ferrous Sulfate 325 Mg Tablet, 325 MG PO BID WITH MEALS Prescribed by: KASANDRA SANCHEZ on 10/01/18 09 Furosemide 20 Mg Tablet, 20 MG PO DAILY, (Reported) Gabapentin 800 Mg Tablet, 800 MG PO QID, (Reported) Hydrocodone Bit/Acetaminophen 1 Tab Tab, 1 EACH PO Q6H PRN for PAIN-MODERATE Prescribed by: ROSS ANG on 10/04/18 1134 Hydrocodone Bit/Acetaminophen 1 Tab Tab, 1 EACH PO Q4-6HR PRN for PAIN-MODERATE Prescribed by: ROSS ANG on 01/01/192020 Hydrocodone/Acetaminophen 1 Each Tablet, 1 TAB PO Q4-6HR Prescribed by: CHAUNCEY THOMAS on 12/20/181909 Insulin Glargine,Hum.rec.anlog 100 Unit/1 Ml Insuln.pen, 24 UNITS SC HS, (Reported) Insulin Lispro 100 Unit/1 Ml Insuln.pen, 6 UNITS SQ AC, (Reported) Levofloxacin 250 Mg Tablet, 250 MG PO DAILY Prescribed by: CHAUNCEY THOMAS on 12/20/181909 Nifedipine 60 Mg Tab.er.24, 60 MG PO BID, (Reported) Phenazopyridine HCl 100 Mg Tablet, 100 MG PO TID Prescribed by: LATOYA CHRISTIANSEN on 02/25/191749 Pramipexole Di-HCl 0.25 Mg Tablet, 0.25 MG PO HS, (Reported) Vit W-Ca,Fe,FA(<1 mg) 1 Each Tablet, 1 TAB PO DAILY, (Reported) Patient Home Medication List Home Medication List Reviewed: Yes Review of Systems Constitutional: no symptoms reported EENTM: no symptoms reported Respiratory: no symptoms reported Cardiovascular: no symptoms reported Gastrointestinal: no symptoms reported Genitourinary: no symptoms reported : No Musculoskeletal: see HPI Skin: no symptoms reported Psychiatric/Neurological: No Symptoms Reported Past Qpfwwgr-Mffxiz-Clbbpm Hx Past Med/Social Hx: Reviewed Nursing Past Med/Soc Hx Patient Social History Alcohol Use: Denies Use Drug of Choice: + IV DRUG USE, EXTENSIVE--WILL NOT STATE WHAT DRUGS SHE HAS USED. Type Used: Cigarettes 2nd Hand Smoke Exposure: Yes Recent Foreign Travel: No Contact w/Someone Who Travel: No Recent Infectious Disease Expo: No Recent Hopitalizations: No Physical Abuse: No Sexual Abuse: No Mistreated: No Fear: No Immunizations Up To Date Tetanus Booster (TDap): Unknown PED Vaccines UTD: No Date of Influenza Vaccine: Jul 03, 2016 Seasonal Allergies Seasonal Allergies: No Past Medical History Surgeries: Yes Amputation, Cardiac, Section, Orthopedic Respiratory: Yes (TOBACCOISM) Cardiac: Yes Congenital Heart Disease, Hypertension Neurological: Yes (SEIZURES R/T DIABETES) Neuropathy, Seizure Disorder Reproductive Disorders: No Female Reproductive Disorders: Denies Sexually Transmitted Disease: No HIV/AIDS: No Genitourinary: Yes Bladder Infection, Renal Failure, UTI-Chronic Gastrointestinal: Yes (CELIAC DISEASE; HEPATITIS C--NO TREATMENT) Hepatitis Musculoskeletal: Yes Amputee, Fractures Endocrine: Yes Diabetes, Insulin dep HEENT: No Loss of Vision: Bilateral Hearing Impairment: Denies Cancer: No Psychosocial: Yes (POLYSUBSTANCE ABUSE) Anxiety, Depression Integumentary: Yes (MRSA) Blood Disorders: Yes (HEP C+, ANEMIA) Adverse Reaction/Blood Tranf: No Family Medical History FH: COPD (chronic obstructive pulmonary disease) 19 FATHER FH: congestive heart failure 19 FATHER FH: liver cancer 19 MOTHER No Pertinent Family Hx Physical Exam Vital Signs Vital Signs - First Documented 09/11/19 09/12/19 22:53 00:49 Temp 36.7 Pulse 91 Resp 18 B/P (MAP) 179/113 (135) Pulse Ox 99 O2 Delivery Room Air Capillary Refill : Less Than 3 Seconds Height, Weight, BMI Height: 5'7.00" Weight: 157lbs. 9.0oz. 71.929556vk; 31.2 BMI Method:Stated General Appearance: WD/WN, no apparent distress HEENT: normal ENT inspection Neck: normal inspection Cardiovascular: regular rate, rhythm, no edema, no murmur Respiratory: lungs clear, normal breath sounds, no respiratory distress Knees: left knee non-tender, left knee normal inspection, left knee no evidence of injury Ankles: left ankle normal inspection, left ankle bone tenderness (lateral malleolus) Feet: left foot bone tenderness (over the midfoot and lateral foot), left foot swelling (subtle swelling over the midfoot), left foot other (normal pedal pulse, sensation, and capillary refill) Neurologic/Tendon: normal sensation, normal motor functions 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, no motor/sensory deficits, alert, normal mood/affect, oriented x 3 Skin: normal color, warm/dry Progress/Results/Core Measures Results/Orders My Orders Orders - CHAUNCEY ALCANTARA MD Foot, Left, 3 Views (09/11/19 22:58) Ankle, Left, 3 Views (09/11/19 22:58) Ketorolac Injection (Toradol Injection) (09/12/19 00:45) Medications Given in ED Current Medications Medications Dose Ordered Sig/Dipti Route Start Time Stop Time Status Last Admin Dose Admin Ketorolac Tromethamine 30 mg ONCE ONCE IM 09/12/19 00:45 09/12/19 00:46 DC 09/12/19 00:40 30 MG Vital Signs/I&O 09/11/19 09/12/19 22:53 00:49 Temp 36.7 36.7 Pulse 91 87 Resp 18 18 B/P (MAP) 179/113 (135) 132/101 (135) Pulse Ox 99 O2 Delivery Room Air Room Air Blood Pressure Mean: 135 Progress Progress Note : Progress Note X-rays of the ankle and foot were reviewed by me. There are significant bony abnormalities in the foot. These appeared chronic but expert opinion from the radiologist was sought. Films were sent to [facility]. No acute injuries were identified. Patient's pain was treated with Toradol. Patient was offered crutches but has some at home already. Foot was wrapped with Ted bandage. Patient reports she is aware of her chronic bone abnormalities in the foot. She intends to seek orthopedic referral when she has medical coverage for this. Diagnostic Imaging Diagonstic Imaging: Xray Plain Films/CT/US/NM/MRI: ankle, other (left foot) Comments X-ray of the ankle viewed by me. [facility] report reviewed. No acute injuries were identified. Left foot x-ray was viewed by me and compared with prior. [facility] report reviewed stating no acute fractures. There is fragmentation of the cuneiforms with old fractures of the second fourth and fifth metatarsals. Findings are not significantly changed from prior study. There is a vascular necrosis or Freiberg's infraction of the third metatarsal head. Departure Impression Primary Impression: Sprain of left foot Qualified Codes: S93.602A - Unspecified sprain of left foot, initial encounter Additional Impression: chronic foot pain exacerbation Disposition: 01 HOME, SELF-CARE Condition: Improved Departure-Patient Inst. Referrals: [facility] (PCP/Family) Primary Care Physician Patient Instructions: Foot Sprain (DC) Add. Discharge Instructions: Use crutches as needed. Gradually advance level of activity as pain allows. Wear well cushioned supportive shoes. Elevation and icing in 20 minute intervals should also help with pain and swelling. Please follow-up with an orthopedic provider and your primary care provider soon as possible. Return to care if you have worsening symptoms. For pain you may use ibuprofen up to 600 mg every 6 hours and/or Tylenol (acetaminophen) up to 1000 mg every 6 hours. All discharge instructions reviewed with patient and/or family. Voiced understanding. Copy Copies To 1: KASANDRA SANCHEZ JOSHUA T MD Sep 12, 2019 00:39
[2019-09-12] MEDS ORDERED: KETOROLAC 30 MG/ML VIAL IM ONE (00:45)
[2019-09-12 00:49] VITALS: BP 132/101
--- NOTE | 2019-09-12 06:55 | Diagnostic Imaging Report ---
INDICATION: Left ankle pain after fall. TECHNIQUE: 3 views of the left ankle COMPARISON: None FINDINGS: No acute fracture or dislocation is seen in the left ankle. Alignment appears normal. Joint spaces are preserved. The ankle mortise is symmetric. IMPRESSION: 1. No acute osseous abnormality is seen in the left ankle. Dictated by: Dictated on workstation # [id number]
--- NOTE | 2019-09-12 06:57 | Diagnostic Imaging Report ---
HISTORY: Fall, left foot pain. TECHNIQUE: 3 views of the left foot. COMPARISON: 04/06/2019 FINDINGS: There is chronic posttraumatic deformity in the midfoot which appears unchanged compared to 04/06/2019. There are healing fractures of the 2nd through 5th metatarsals as well as osteonecrosis of the 3rd metatarsal head. There does appear to be a healing fracture of the 2nd toe middle phalanx which is new since the prior exam. IMPRESSION: 1. Healing nondisplaced fracture of the left 2nd toe middle phalanx which is new since April 2019. 2. Multiple healing fractures of the left metatarsals and midfoot in stable alignment compared to the prior study. 3. 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 Dictated by: Dictated on workstation # [id number]
== END 2019-09-12 00:56 | disposition home or self-care (01) ==
LOC: EDUNIT# 22:38 → ER 22:40
DX: S93.602A Unspecified sprain of left foot, initial encounter (principal); G89.29 Other chronic pain; E10.40 Type 1 diabetes mellitus with diabetic neuropathy, unspecified; I10 Essential (primary) hypertension; G40.909 Epilepsy, unspecified, not intractable, without status epilepticus; B19.20 Unspecified viral hepatitis C without hepatic coma; F41.9 Anxiety disorder, unspecified; F32.9 Major depressive disorder, single episode, unspecified; D64.9 Anemia, unspecified; Z87.440 Personal history of urinary (tract) infections; Z88.8 Allergy status to other drugs, medicaments and biological substances; Z79.82 Long term (current) use of aspirin; Z79.4 Long term (current) use of insulin; Z77.22 Contact with and (suspected) exposure to environmental tobacco smoke (acute) (chronic); Z82.49 Family history of ischemic heart disease and other diseases of the circulatory system; Z80.0 Family history of malignant neoplasm of digestive organs; X50.1XXA Overexertion from prolonged static or awkward postures, initial encounter
CPT/HCPCS: 73610; 73630; 96372

== ENCOUNTER 2019-11-03 10:34 | Emergency (ER) | payer MEDICAID ==
[~2019-11-03] VITALS: Ht 170.1 cm; Wt 81.6 kg
[~2019-11-03 10:34] MED LIST changes: +ACHYD1T PO; -HYDR-3812 PO; -HYDR-3820 PO; -TRAZ-190 PO; +TRAZ-227 PO
[2019-11-03] MEDS ORDERED: LACTATED RINGERS 1,000 ML IV SCH (11:00)
--- NOTE | 2019-11-03 11:06 | ED General ---
General Chief Complaint: Respiratory Problems Stated Complaint: SOA;KIDNEY FAILURE;PAIN ALL OVER Source of Information: Patient Exam Limitations: No Limitations History of Present Illness Date Seen by Provider: Nov 03, 2019 Time Seen by Provider: 11:04 Initial Comments To ER by private vehicle with reports of diffuse pain, shortness of breath for the past few days, she reports that she has fluid on her lungs she reports increased swelling to her low back, legs. She has kidney failure, treated at [facility], she was recently started on sodium bicarbonate 3 times a day but feels like this makes her worse so she didn't take it today. Timing/Duration: 1-2 Days Severity: Moderate Associated Systoms: Cough, Malaise Allergies and Home Medications Allergies Coded Allergies: gluten (Verified Allergy, Unknown, 12/20/18) Home Medications Acetaminophen 500 Mg Tablet, 500-1,000 MG PO Q6H PRN for PAIN-MILD, (Reported) Acetaminophen 325 Mg Tablet, 2 TAB PO Q6H PRN for PAIN-MILD Prescribed by: KASANDRA SANCHEZ on 10/01/18942 Aspirin 81 Mg Tablet.dr, 81 MG PO BID, (Reported) Buspirone HCl 30 Mg Tablet, 30 MG PO TID, (Reported) Cefuroxime Axetil 250 Mg Tablet, 250 MG PO BID Prescribed by: LATOYA LAYTON on 02/25/191749 Clonidine HCl 0.2 Mg Tablet, 0.2 MG PO BID, (Reported) Cyclobenzaprine HCl 10 Mg Tablet, 10 MG PO TID PRN for MUSCLE SPASMS, (Reported) Doxycycline Hyclate 100 Mg Tablet, 100 MG PO BID Prescribed by: CHAUNCEY THOMAS on 12/20/181909 Ferrous Sulfate 325 Mg Tablet, 325 MG PO BID WITH MEALS Prescribed by: KASANDRA SANCHEZ on 10/01/18 09 Furosemide 20 Mg Tablet, 20 MG PO DAILY, (Reported) Gabapentin 800 Mg Tablet, 800 MG PO QID, (Reported) Hydrocodone Bit/Acetaminophen 1 Tab Tab, 1 EACH PO Q6H PRN for PAIN-MODERATE Prescribed by: ROSS ANG on 10/04/18 113 Hydrocodone Bit/Acetaminophen 1 Tab Tab, 1 EACH PO Q4-6HR PRN for PAIN-MODERATE Prescribed by: ROSS ANG on 01/01/192020 Hydrocodone/Acetaminophen 1 Each Tablet, 1 TAB PO Q4-6HR Prescribed by: CHAUNCEY THOMAS on 12/20/181909 Insulin Glargine,Hum.rec.anlog 100 Unit/1 Ml Insuln.pen, 24 UNITS SC HS, (Reported) Insulin Lispro 100 Unit/1 Ml Insuln.pen, 6 UNITS SQ AC, (Reported) Levofloxacin 250 Mg Tablet, 250 MG PO DAILY Prescribed by: CHAUNCEY THOMAS on 12/20/181909 Nifedipine 60 Mg Tab.er.24, 60 MG PO BID, (Reported) Phenazopyridine HCl 100 Mg Tablet, 100 MG PO TID Prescribed by: LATOYA LAYTON on 02/25/191749 Pramipexole Di-HCl 0.25 Mg Tablet, 0.25 MG PO HS, (Reported) Vit W-Ca,Fe,FA(<1 mg) 1 Each Tablet, 1 TAB PO DAILY, (Reported) Patient Home Medication List Home Medication List Reviewed: Yes Review of Systems Review of Systems Constitutional: see HPI; No chills, No fever EENTM: see HPI Respiratory: see HPI, cough, short of breath Cardiovascular: no symptoms reported Genitourinary: no symptoms reported Musculoskeletal: see HPI Skin: no symptoms reported Psychiatric/Neurological: No Symptoms Reported Past Peqbvtt-Ckkrvn-Kuhawl Hx Patient Social History Drug of Choice: + IV DRUG USE, EXTENSIVE--WILL NOT STATE WHAT DRUGS SHE HAS USED. Type Used: Cigarettes 2nd Hand Smoke Exposure: Yes Recent Foreign Travel: No Contact w/Someone Who Travel: No Recent Hopitalizations: No Immunizations Up To Date Tetanus Booster (TDap): Unknown PED Vaccines UTD: No Date of Influenza Vaccine: Jul 03, 2016 Seasonal Allergies Seasonal Allergies: No Past Medical History Surgeries: Yes Amputation, Cardiac, Section, Orthopedic Respiratory: Yes (TOBACCOISM) Cardiac: Yes Congenital Heart Disease, Hypertension Neurological: Yes (SEIZURES R/T DIABETES) Neuropathy, Seizure Disorder Reproductive Disorders: No Female Reproductive Disorders: Denies Sexually Transmitted Disease: No HIV/AIDS: No Genitourinary: Yes Bladder Infection, Renal Failure, UTI-Chronic Gastrointestinal: Yes (CELIAC DISEASE; HEPATITIS C--NO TREATMENT) Hepatitis Musculoskeletal: Yes Amputee, Fractures Endocrine: Yes Diabetes, Insulin dep HEENT: No Loss of Vision: Bilateral Hearing Impairment: Denies Cancer: No Psychosocial: Yes (POLYSUBSTANCE ABUSE) Anxiety, Depression Integumentary: Yes (MRSA) Blood Disorders: Yes (HEP C+, ANEMIA) Adverse Reaction/Blood Tranf: No Family Medical History FH: COPD (chronic obstructive pulmonary disease) 19 FATHER FH: congestive heart failure 19 FATHER FH: liver cancer 19 MOTHER No Pertinent Family Hx Physical Exam Vital Signs Vital Signs - First Documented 11/03/19 10:43 Temp 37.0 Pulse 97 Resp 20 B/P (MAP) 193/112 (139) Pulse Ox 96 O2 Delivery Room Air Capillary Refill : Height, Weight, BMI Height: 5'7.00" Weight: 157lbs. 9.0oz. 71.551577vl; 31.2 BMI Method:Stated General Appearance: No Apparent Distress, WD/WN, Other (no distress, chronically ill-appearing. Oxygen saturation 95% room air heart rate 90, blood pressure 190/101.) Eyes: Bilateral Eye Normal Inspection, Bilateral Eye PERRL HEENT: PERRL/EOMI, TMs Normal Neck: Full Range of Motion, Normal Inspection Respiratory: No Accessory Muscle Use, No Respiratory Distress Cardiovascular: Regular Rate, Rhythm, Normal Peripheral Pulses Gastrointestinal: Non Tender, Soft Back: Other (she does have some trace pitting edema to the low back, she has 1+ pitting edema to bilateral lower extremities) Extremity: Normal Capillary Refill, Normal Range of Motion Neurologic/Psychiatric: Alert, Oriented x3 Skin: Normal Color, Warm/Dry Progress/Results/Core Measures Suspected Sepsis SIRS Temperature: Pulse: Respiratory Rate: Laboratory Tests 11/03/19 11:30: White Blood Count 13.9H Blood Pressure / Mean: Laboratory Tests 11/03/19 11:30: Creatinine 5.10H, Platelet Count 310, Total Bilirubin 0.2 Results/Orders Lab Results Laboratory Tests Test 11/03/19 10:53 11/03/19 11:30 11/03/19 14:22 Range/Units Glucometer 139 H 70-110 MG/DL White Blood Count 13.9 H 4.3-11.0 10^3/uL Red Blood Count 2.87 L 4.35-5.85 10^6/uL Hemoglobin 8.2 L 11.5-16.0 G/DL Hematocrit 25 L 35-52 % Mean Corpuscular Volume 87 80-99 FL Mean Corpuscular Hemoglobin 29 25-34 PG Mean Corpuscular Hemoglobin Concent 33 32-36 G/DL Red Cell Distribution Width 15.6 H 10.0-14.5 % Platelet Count 310 130-400 10^3/uL Mean Platelet Volume 10.7 H 7.4-10.4 FL Neutrophils (%) (Auto) 73 42-75 % Lymphocytes (%) (Auto) 15 12-44 % Monocytes (%) (Auto) 11 0-12 % Eosinophils (%) (Auto) 1 0-10 % Basophils (%) (Auto) 0 0-10 % Neutrophils # (Auto) 10.2 H 1.8-7.8 X 10^3 Lymphocytes # (Auto) 2.0 1.0-4.0 X 10^3 Monocytes # (Auto) 1.5 H 0.0-1.0 X 10^3 Eosinophils # (Auto) 0.2 0.0-0.3 10^3/uL Basophils # (Auto) 0.1 0.0-0.1 10^3/uL Sodium Level 137 135-145 MMOL/L Potassium Level 5.1 H 3.6-5.0 MMOL/L Chloride Level 111 H 98-107 MMOL/L Carbon Dioxide Level 17 L 21-32 MMOL/L Anion Gap 9 5-14 MMOL/L Blood Urea Nitrogen 62 H 7-18 MG/DL Creatinine 5.10 H 0.60-1.30 MG/DL Estimat Glomerular Filtration Rate 10 BUN/Creatinine Ratio 12 Glucose Level 122 H 70-105 MG/DL Calcium Level 7.9 L 8.5-10.1 MG/DL Corrected Calcium 8.9 8.5-10.1 MG/DL Total Bilirubin 0.2 0.1-1.0 MG/DL Aspartate Amino Transf (AST/SGOT) 20 5-34 U/L Alanine Aminotransferase (ALT/SGPT) 32 0-55 U/L Alkaline Phosphatase 179 H 40-136 U/L Total Protein 6.2 L 6.4-8.2 GM/DL Albumin 2.7 L 3.2-4.5 GM/DL Urine Color ORANGE Urine Clarity CLEAR Urine pH 7.0 5-9 Urine Specific [place] 1.020 1.016-1.022 Urine Protein 3+ H NEGATIVE Urine Glucose (UA) 1+ H NEGATIVE Urine Ketones NEGATIVE NEGATIVE Urine Nitrite NEGATIVE NEGATIVE Urine Bilirubin NEGATIVE NEGATIVE Urine Urobilinogen 0.2 < = 1.0 MG/DL Urine Leukocyte Esterase NEGATIVE NEGATIVE Urine RBC (Auto) TRACE-I NEGATIVE Urine RBC 0-2 /HPF Urine WBC 0-2 /HPF Urine Squamous Epithelial Cells 2-5 /HPF Urine Crystals NONE /LPF Urine Bacteria TRACE /HPF Urine Casts NONE /LPF Urine Mucus NEGATIVE /LPF Urine Culture Indicated NO Urine Opiates Screen NEGATIVE NEGATIVE Urine Oxycodone Screen NEGATIVE NEGATIVE Urine Methadone Screen NEGATIVE NEGATIVE Urine Propoxyphene Screen NEGATIVE NEGATIVE Urine Barbiturates Screen NEGATIVE NEGATIVE Ur Tricyclic Antidepressants Screen NEGATIVE NEGATIVE Urine Phencyclidine Screen NEGATIVE NEGATIVE Urine Amphetamines Screen NEGATIVE NEGATIVE Urine Methamphetamines Screen NEGATIVE NEGATIVE Urine Benzodiazepines Screen NEGATIVE NEGATIVE Urine Cocaine Screen NEGATIVE NEGATIVE Urine Cannabinoids Screen NEGATIVE NEGATIVE My Orders Orders - LATOYA LAYTON APRN Cbc With Automated Diff (11/03/19 10:52) Ua Culture If Indicated (11/03/19 10:52) Drug Screen Stat (Urine) (11/03/19 10:52) Comprehensive Metabolic Panel (11/03/19 10:52) Ed Iv/Invasive Line Start (11/03/19 10:52) Lactated Ringers (Lr 1000 Ml Iv Solution (11/03/19 11:00) Chest Pa/Lat (2 View) (11/03/19 10:56) Hydralazine Injection (Apresoline Inject (11/03/19 11:15) Furosemide Injection (Lasix Injection) (11/03/19 11:15) Lidocaine 2% Injection 20 Ml (Xylocaine (11/03/19 11:30) Lidocaine 1% Inj 20 Ml (Xylocaine 1% Inj (11/03/19 11:20) Ekg Tracing (11/03/19 12:39) General/Regular (11/03/19 Lunch) Hydralazine Injection (Apresoline Inject (11/03/19 13:15) Alprazolam Tablet (Xanax Tablet) (11/03/19 13:30) Blood Culture (11/03/19 13:28) Ceftriaxone For Iv Use (Rocephin For I (11/03/19 13:30) Doxycycline Hyclate Tablet (Vibramycin T (11/03/19 13:30) Acetaminophen Tablet (Tylenol Tablet) (11/03/19 14:36) Medications Given in ED Vital Signs/I&O 11/04/19 00:00 Intake Total 10 ml Balance 10 ml Capillary Refill : Diagnostic Imaging Diagonstic Imaging: Xray Plain Films/CT/US/NM/MRI: chest Comments NAME: HUONG ARANGO [facility] REC#: [id number] PT STATUS: REG ER : 1985 PHYSICIAN: LATOYA LAYTON APRN ADMIT DATE: 11/03/19/ER Draft Date of Exam:11/03/19 CHEST PA/LAT (2 VIEW) EXAMINATION: PA and lateral chest at 11:45 a.m. INDICATION: Shortness of breath. FINDINGS: The heart size is within normal limits and stable when compared to 01/13/2017. In the interval since the previous study, however, alveolar/interstitial pulmonary infiltrates have developed about the right hilum. There is also a small amount of fluid now present in the right lung base. These findings do suggest that there is an element of pneumonia/atelectasis present. The density about the left hilum is also somewhat greater than on the prior exam and there could be an element of pneumonia/atelectasis in this area as well. There is no pleural effusion evident on the left however. The mediastinum is not widened. The osseous structures are intact. IMPRESSION: 1. There is bilateral perihilar pneumonia/atelectasis with much greater involvement on the right. There is also a small right pleural effusion. A follow-up exam would be recommended for continued evaluation. 2. These results were discussed with Latoya Layton APRN. Dictated on workstation # [id number] Dict: 11/03/19 1143 Trans: 11/03/19 1151 [id number] Interpreted by: ANUEL KLINE MD Electronically signed by: Departure Impression Primary Impression: Nephrotic syndrome Disposition: XFER SHT-TRM HOSP Condition: Stable Departure-Patient Inst. Referrals: [facility] (PCP/Family) Primary Care Physician LATOYA LAYTON APRN Nov 03, 2019 11:06
[2019-11-03] MEDS ORDERED: hydrALAZINE (APESOLINE) 20 MG/ML VIAL IV ONE ×2 (11:15→13:15)
[2019-11-03] MEDS ORDERED: FUROSEMIDE 40 MG/4 ML INJ (LASIX) IVP ONE (11:15)
[2019-11-03] MEDS ORDERED: LIDOCAINE 1% INJ 20 ML 20 ML VIAL ONE (11:20)
[2019-11-03] MEDS ORDERED: LIDOCAINE 2% 20 ML (XYLOCAINE) VIAL INJ ONE (11:30)
[2019-11-03 11:38] LABS: BASOPHILS # (AUTO) 0.1 10^3/uL (0.0-0.1); BASOPHILS % (AUTO) 0 % (0-10); EOSINOPHILS # (AUTO) 0.2 10^3/uL (0.0-0.3); EOSINOPHILS % (AUTO) 1 % (0-10); HEMATOCRIT 25 % (35-52); HEMOGLOBIN 8.2 G/DL (11.5-16.0); LYMPHOCYTES % (AUTO) 15 % (12-44); MEAN CORPUSCULAR HEMOGLOBIN 29 PG (25-34); MEAN CORPUSCULAR HGB CONC 33 G/DL (32-36); MEAN CORPUSCULAR VOLUME 87 FL (80-99); MEAN PLATELET VOLUME 10.7 FL (7.4-10.4); MONOCYTES # (AUTO) 1.5 X 10^3 (0.0-1.0); MONOCYTES % (AUTO) 11 % (0-12); NEUTROPHILS # (AUTO) 10.2 X 10^3 (1.8-7.8); NEUTROPHILS % (AUTO) 73 % (42-75); PLATELET COUNT 310 10^3/uL (130-400); RED CELL DISTRIBUTION WIDTH 15.6 % (10.0-14.5); WHITE BLOOD COUNT 13.9 10^3/uL (4.3-11.0)
--- NOTE | 2019-11-03 11:52 | Diagnostic Imaging Report ---
EXAMINATION: PA and lateral chest at 11:45 a.m. INDICATION: Shortness of breath. FINDINGS: The heart size is within normal limits and stable when compared to 01/13/2017. In the interval since the previous study, however, alveolar/interstitial pulmonary infiltrates have developed about the right hilum. There is also a small amount of fluid now present in the right lung base. These findings do suggest that there is an element of pneumonia/atelectasis present. The density about the left hilum is also somewhat greater than on the prior exam and there could be an element of pneumonia/atelectasis in this area as well. There is no pleural effusion evident on the left however. The mediastinum is not widened. The osseous structures are intact. IMPRESSION: 1. There is bilateral perihilar pneumonia/atelectasis with much greater involvement on the right. There is also a small right pleural effusion. A follow-up exam would be recommended for continued evaluation. 2. These results were discussed with Slick Layton APRN. Dictated by: Dictated on workstation # [id number]
[2019-11-03 12:02] LABS: ALBUMIN 2.7 GM/DL (3.2-4.5); BILIRUBIN,TOTAL 0.2 MG/DL (0.1-1.0); CALCIUM 7.9 MG/DL (8.5-10.1); CREATININE SERUM 5.1 MG/DL (0.60-1.30); POTASSIUM 5.1 MMOL/L (3.6-5.0); TOTAL PROTEIN 6.2 GM/DL (6.4-8.2)
[2019-11-03] MEDS ORDERED: DOXYCYCLINE 100 MG (VIBRAMYCIN) TABLET PO SCH (13:30)
[2019-11-03] MEDS ORDERED: cefTRIAXone FOR IV USE 1,000 MG in WATER (STERILE) FOR INJECTION 10 ML IV ONE (13:30)
[2019-11-03] MEDS ORDERED: ALPRAZolam 0.5 MG (XANAX) TAB PO SCH (13:30)
[2019-11-03 14:28] LABS: BILIRUBIN,URINE NEGATIVE (NEGATIVE); CLARITY,URINE CLEAR; COLOR,URINE ORANGE; GLUCOSE, URINE (UA) 1+ (NEGATIVE); KETONES,URINE NEGATIVE (NEGATIVE); LEUKOCYTE ESTERASE ,URINE NEGATIVE (NEGATIVE); NITRITE,URINE NEGATIVE (NEGATIVE); PROTEIN,URINE 3+ (NEGATIVE)
[2019-11-03] MEDS ORDERED: ACETAMINOPHEN 500 MG TAB (TYLENOL) ONE (14:36)
[2019-11-03 14:38] LABS: BACTERIA,URINE TRACE /HPF; RBC,URINE 0-2 /HPF; WBC,URINE 0-2 /HPF
[2019-11-03 14:41] LABS: AMPHETAMINE SCREEN, URINE NEGATIVE (NEGATIVE); BARBITURATE SCREEN URINE NEGATIVE (NEGATIVE); BENZODIAZEPINES SCREEN URINE NEGATIVE (NEGATIVE); CANNABINOID SCREEN, URINE NEGATIVE (NEGATIVE); COCAINE SCREEN URINE NEGATIVE (NEGATIVE); METHADONE STAT NEGATIVE (NEGATIVE); METHAMPHETAMINE SCREEN URINE S NEGATIVE (NEGATIVE); OPIATE SCREEN URINE NEGATIVE (NEGATIVE); OXYCODONE STAT NEGATIVE (NEGATIVE); PROPOXYPHENE STAT NEGATIVE (NEGATIVE); TRICYCLIC ANTIDEPRESSANTS SCRE NEGATIVE (NEGATIVE)
[2019-11-03 14:46] VITALS: BP 180/101
== END 2019-11-03 14:46 | disposition short-term general hospital (02) ==
LOC: EDUNIT# 10:34 → ER 10:35
DX: N04.9 Nephrotic syndrome with unspecified morphologic changes (principal); I10 Essential (primary) hypertension; E11.40 Type 2 diabetes mellitus with diabetic neuropathy, unspecified; G40.909 Epilepsy, unspecified, not intractable, without status epilepticus; F41.9 Anxiety disorder, unspecified; F32.9 Major depressive disorder, single episode, unspecified; Z79.4 Long term (current) use of insulin; Z77.22 Contact with and (suspected) exposure to environmental tobacco smoke (acute) (chronic); Z80.0 Family history of malignant neoplasm of digestive organs; Z82.49 Family history of ischemic heart disease and other diseases of the circulatory system
CPT/HCPCS: 36415; 71046; 80053; 80306; 81000; 82962; 85025; 87040; 93005

== ENCOUNTER 2020-01-12 17:29 | Emergency (ER) | payer MEDICAID ==
[~2020-01-12] VITALS: Ht 170 cm; Wt 63.6 kg
[~2020-01-12 17:29] MED LIST changes: -ASCO-413 PO; +ASCO500T71 PO
--- NOTE | 2020-01-12 17:37 | ED Dyspnea ---
General Stated Complaint: CHEMICAL INGESTION History of Present Illness Date Seen by Provider: January 12, 2020 Time Seen by Provider: 17:37 Initial Comments 34-year-old female presents with cough, shortness of breath, chest pain, nausea, vomiting not feeling well. Patient reports that she was in her bathroom cleaning it and she mixed Ajax and bleach. That she inhaled the fumes in the symptoms started after that. Patient does have a history of kidney disease and is on dialysis from uncontrolled diabetes. She has a history of drug use. (CURT ROBERTSON DO) Initial Comments Nephrology through [facility]. (OLAMIDE LOZADA) Allergies and Home Medications Allergies Coded Allergies: gluten (Verified Allergy, Unknown, 12/20/18) Home Medications Acetaminophen 500 Mg Tablet, 500-1,000 MG PO Q6H PRN for PAIN-MILD, (Reported) Acetaminophen 325 Mg Tablet, 2 TAB PO Q6H PRN for PAIN-MILD Prescribed by: KASANDRA SANCHEZ on 10/01/18942 Aspirin 81 Mg Tablet.dr, 81 MG PO BID, (Reported) Buspirone HCl 30 Mg Tablet, 30 MG PO TID, (Reported) Cefuroxime Axetil 250 Mg Tablet, 250 MG PO BID Prescribed by: LATOYA CHRISTIANSEN on 02/25/191749 Clonidine HCl 0.2 Mg Tablet, 0.2 MG PO BID, (Reported) Cyclobenzaprine HCl 10 Mg Tablet, 10 MG PO TID PRN for MUSCLE SPASMS, (Reported) Doxycycline Hyclate 100 Mg Tablet, 100 MG PO BID Prescribed by: CHAUNCEY THOMAS on 12/20/181909 Ferrous Sulfate 325 Mg Tablet, 325 MG PO BID WITH MEALS Prescribed by: KASANDRA SANCHEZ on 10/01/18942 Furosemide 20 Mg Tablet, 20 MG PO DAILY, (Reported) Gabapentin 800 Mg Tablet, 800 MG PO QID, (Reported) Hydrocodone Bit/Acetaminophen 1 Tab Tab, 1 EACH PO Q6H PRN for PAIN-MODERATE Prescribed by: ORSS ANG on 10/04/18 1134 Hydrocodone Bit/Acetaminophen 1 Each Tablet, 1 TAB PO Q4-6HR Prescribed by: CHAUNCEY THOMAS on 12/20/181909 Hydrocodone Bit/Acetaminophen 1 Tab Tab, 1 EACH PO Q4-6HR PRN for PAIN-MODERATE Prescribed by: ROSS ANG on 01/01/192020 Insulin Glargine,Hum.rec.anlog 100 Unit/1 Ml Insuln.pen, 24 UNITS SC HS, (Reported) Insulin Lispro 100 Unit/1 Ml Insuln.pen, 6 UNITS SQ AC, (Reported) Levofloxacin 250 Mg Tablet, 250 MG PO DAILY Prescribed by: CHAUNCEY THOMAS on 12/20/18 191 Nifedipine 60 Mg Tab.er.24, 60 MG PO BID, (Reported) Phenazopyridine HCl 100 Mg Tablet, 100 MG PO TID Prescribed by: LATOYA CHRISTIANSEN on 02/25/191749 Pramipexole Di-HCl 0.25 Mg Tablet, 0.25 MG PO HS, (Reported) Vit W-Ca,Fe,FA(<1 mg) 1 Each Tablet, 1 TAB PO DAILY, (Reported) Patient Home Medication List Home Medication List Reviewed: Yes (CURT ROBERTSON DO) Review of Systems Review of Systems Constitutional: malaise Respiratory: cough, short of breath Cardiovascular: chest pain Gastrointestinal: nausea, vomiting Genitourinary: no symptoms reported Musculoskeletal: no symptoms reported Skin: no symptoms reported Psychiatric/Neurological: No Symptoms Reported (CURT ROBERTSON DO) Past Aegpbpw-Ejxkps-Feqpsq Hx Past Med/Social Hx: Reviewed Nursing Past Med/Soc Hx (CURT ROBERTSON DO) Patient Social History Drug of Choice: + IV DRUG USE, EXTENSIVE--WILL NOT STATE WHAT DRUGS SHE HAS USED. Type Used: Cigarettes Former Smoker, Quit: Oct 04, 2018 2nd Hand Smoke Exposure: Yes Recent Foreign Travel: No Contact w/Someone Who Travel: No Recent Hopitalizations: No (CURT ROBERTSON DO) Immunizations Up To Date Tetanus Booster (TDap): Unknown PED Vaccines UTD: No Date of Influenza Vaccine: Jul 03, 2016 (CURT ROBERTSON DO) Seasonal Allergies Seasonal Allergies: No (CURT ROBERTSON DO) Past Medical History Surgeries: Yes Amputation, Cardiac, Section, Orthopedic Respiratory: Yes (TOBACCOISM) Cardiac: Yes Congenital Heart Disease, Hypertension Neurological: Yes (SEIZURES R/T DIABETES) Neuropathy, Seizure Disorder Reproductive Disorders: No Female Reproductive Disorders: Denies Sexually Transmitted Disease: No HIV/AIDS: No Genitourinary: Yes Bladder Infection, Renal Failure, UTI-Chronic Gastrointestinal: Yes (CELIAC DISEASE; HEPATITIS C--NO TREATMENT) Hepatitis Musculoskeletal: Yes Amputee, Fractures Endocrine: Yes Diabetes, Insulin dep HEENT: No Loss of Vision: Bilateral Hearing Impairment: Denies Cancer: No Psychosocial: Yes (POLYSUBSTANCE ABUSE) Anxiety, Depression Integumentary: Yes (MRSA) Blood Disorders: Yes (HEP C+, ANEMIA) Adverse Reaction/Blood Tranf: No (ROBERTSON,CURT L DO) Family Medical History FH: COPD (chronic obstructive pulmonary disease) 19 FATHER FH: congestive heart failure 19 FATHER FH: liver cancer 19 MOTHER No Pertinent Family Hx (ROBERTSON,CURT L DO) Physical Exam Vital Signs Vital Signs - First Documented 01/12/20 17:39 Temp 35.2 Pulse 91 Resp 12 B/P (MAP) 147/87 (107) Pulse Ox 90 O2 Delivery Room Air (OLAMIDE LOZADA) Vital Signs Capillary Refill : (ROBERTSON,CURT L DO) Height, Weight, BMI Height: 5'7.00" Weight: 157lbs. 9.0oz. 71.560846rw; 28.00 BMI Method:Stated General Appearance: No Apparent Distress, Anxious Neck: Non Tender, Supple Respiratory: Chest Non Tender, No Accessory Muscle Use, Decreased Breath Sounds Cardiovascular: Regular Rate, Rhythm Gastrointestinal: Non Tender, Soft Extremity: Normal Capillary Refill Neurologic/Psychiatric: Oriented x3, No Motor/Sensory Deficits, Normal Mood/Affect Skin: Normal Color, Warm/Dry (ROBERTSON,CURT L DO) Progress/Results/Core Measures Results/Orders Lab Results Laboratory Tests Test 01/12/20 17:49 01/12/20 17:55 01/12/20 17:58 01/12/20 18:15 Range/Units Blood Gas Puncture Site R RAD Blood Gas Patient Temperature 35.2 Arterial Blood pH 7.41 7.37-7.43 Arterial Blood Partial Pressure CO2 42 35-45 MMHG Arterial Blood Partial Pressure O2 55 L 79-93 MMHG Arterial Blood HCO3 27 23-27 MMOL/L Arterial Blood Total CO2 28.4 21.0-31.0 MMOL/L Arterial Blood Oxygen Saturation 90 L 94-100 % Arterial Blood Base Excess 2.3 -2.5-2.5 MMOL/L Sebastian Test YES-POS Blood Gas Ventilator Setting NO Blood Gas Inspired Oxygen 2L White Blood Count 6.9 4.3-11.0 10^3/uL Red Blood Count 4.18 L 4.35-5.85 10^6/uL Hemoglobin 11.8 11.5-16.0 G/DL Hematocrit 35 35-52 % Mean Corpuscular Volume 84 80-99 FL Mean Corpuscular Hemoglobin 28 25-34 PG Mean Corpuscular Hemoglobin Concent 33 32-36 G/DL Red Cell Distribution Width 14.9 H 10.0-14.5 % Platelet Count 211 130-400 10^3/uL Mean Platelet Volume 11.0 H 7.4-10.4 FL Neutrophils (%) (Auto) 54 42-75 % Lymphocytes (%) (Auto) 29 12-44 % Monocytes (%) (Auto) 11 0-12 % Eosinophils (%) (Auto) 5 0-10 % Basophils (%) (Auto) 1 0-10 % Neutrophils # (Auto) 3.7 1.8-7.8 X 10^3 Lymphocytes # (Auto) 2.0 1.0-4.0 X 10^3 Monocytes # (Auto) 0.8 0.0-1.0 X 10^3 Eosinophils # (Auto) 0.3 0.0-0.3 10^3/uL Basophils # (Auto) 0.1 0.0-0.1 10^3/uL Sodium Level 138 135-145 MMOL/L Potassium Level 4.3 3.6-5.0 MMOL/L Chloride Level 100 98-107 MMOL/L Carbon Dioxide Level 24 21-32 MMOL/L Anion Gap 14 5-14 MMOL/L Blood Urea Nitrogen 39 H 7-18 MG/DL Creatinine 6.14 H 0.60-1.30 MG/DL Estimat Glomerular Filtration Rate 8 BUN/Creatinine Ratio 6 Glucose Level 96 70-105 MG/DL Calcium Level 8.1 L 8.5-10.1 MG/DL Corrected Calcium 8.3 L 8.5-10.1 MG/DL Magnesium Level 2.3 1.6-2.4 MG/DL Total Bilirubin 0.3 0.1-1.0 MG/DL Aspartate Amino Transf (AST/SGOT) 20 5-34 U/L Alanine Aminotransferase (ALT/SGPT) 16 0-55 U/L Alkaline Phosphatase 195 H 40-136 U/L Troponin I 0.028 <0.028 NG/ML Total Protein 7.2 6.4-8.2 GM/DL Albumin 3.7 3.2-4.5 GM/DL Glucometer 93 70-110 MG/DL Urine Color YELLOW Urine Clarity CLEAR Urine pH 8.0 5-[address] [place] 1.015 L 1.016-1.022 Urine Protein 3+ H NEGATIVE Urine Glucose (UA) 1+ H NEGATIVE Urine Ketones NEGATIVE NEGATIVE Urine Nitrite NEGATIVE NEGATIVE Urine Bilirubin NEGATIVE NEGATIVE Urine Urobilinogen 0.2 < = 1.0 MG/DL Urine Leukocyte Esterase NEGATIVE NEGATIVE Urine RBC (Auto) NEGATIVE NEGATIVE Urine RBC RARE /HPF Urine WBC 2-5 /HPF Urine Squamous Epithelial Cells 10-25 H /HPF Urine Renal Epithelial Cells RARE /HPF Urine Crystals NONE /LPF Urine Bacteria FEW H /HPF Urine Casts NONE /LPF Urine Mucus NEGATIVE /LPF Urine Culture Indicated NO Urine Opiates Screen NEGATIVE NEGATIVE Urine Oxycodone Screen NEGATIVE NEGATIVE Urine Methadone Screen NEGATIVE NEGATIVE Urine Propoxyphene Screen NEGATIVE NEGATIVE Urine Barbiturates Screen NEGATIVE NEGATIVE Ur Tricyclic Antidepressants Screen NEGATIVE NEGATIVE Urine Phencyclidine Screen NEGATIVE NEGATIVE Urine Amphetamines Screen NEGATIVE NEGATIVE Urine Methamphetamines Screen NEGATIVE NEGATIVE Urine Benzodiazepines Screen NEGATIVE NEGATIVE Urine Cocaine Screen NEGATIVE NEGATIVE Urine Cannabinoids Screen NEGATIVE NEGATIVE (OLAMIDE LOZADA) Vital Signs/I&O 01/12/20 17:39 Temp 35.2 Pulse 91 Resp 12 B/P (MAP) 147/87 (107) Pulse Ox 90 O2 Delivery Room Air (OLAMIDE LOZADA) Progress Progress Note : Time: 18:25 Progress Note Having reviewed the patient as well as the history and physical exam from Dr. Robertson I agree with the above stated. The patient is calm but 80-82% on room air. Suspect that she could possibly have worsening chemical pneumonitis overnight and it would be costello to observe her. Since she has dialysis in the morning we're going to talk to [facility] about transferring her. She is afebrile is unremarkable chest x-ray at this time. Her other labs are not unexpected. (OLAMIDE LOZADA) Initial ECG Impression Date: January 12, 2020 Initial ECG Impression Time: 18:05 Initial ECG Rate: 96 Initial ECG Rhythm: Normal Sinus Initial ECG Intervals: QT (497) Initial ECG Impression: Normal Initial ECG Comparisson: Unchanged Comment Normal sinus rhythm without clinically relevant ST changes. (OLAMIDE LOZADA) Diagnostic Imaging Diagonstic Imaging: Xray Plain Films/CT/US/NM/MRI: chest (1v) Comments No acute cardiopulmonary process noted on one view chest x-ray. NAME: HUONG ARANGO [facility] REC#: [id number] PT STATUS: REG ER : 1985 PHYSICIAN: CURT ROBERTSON DO ADMIT DATE: 01/12/20/ER Draft Date of Exam:01/12/20 CHEST PA/LAT (2 VIEW) INDICATION: Chemical inhalation, vomiting and shortness of breath. COMPARISON STUDY: Chest from November 02. FINDINGS: 2 views of the chest demonstrate interval placement of a dialysis catheter with its tip in the mid right atrium. Previous pulmonary infiltrates are clear. The heart size and vascularity are normal. IMPRESSION: 1. Previous infiltrates have cleared. 2. There has been interval placement of a dialysis type catheter. Dictated on workstation # [id number] Dict: 01/12/20 1835 Trans: 01/12/20 1841 [facility] [id number] Interpreted by: TIM SAUNDERS MD Electronically signed by: Reviewed: Reviewed by Me (OLAMIDE LOZADA) Departure Impression Primary Impression: Pneumonia, chemical Additional Impression: Acute respiratory failure with hypoxia Disposition: XF SHT-TRM HOSP Condition: Stable Transfer Transfer Reason: Exceeds level of care (HD) Time Spoke to Accepting Phy: 18:40 Transfer Progress Notes [facility] 1829: Dr Roldan: Discussed the case and presentation and plan and he agrees to accept the patient. Transfer Facility: [place], [place] Method of Transfer: EMS (OLAMIDE LOZADA) Departure-Patient Inst. Referrals: [facility] (PCP/Family) Primary Care Physician CURT ROBERTSON DO January 12, 2020 17:37 OLAMIDE LOZADA January 12, 2020 18:44
[2020-01-12 17:57] LABS: ABG BASE EXCESS 2.3 MMOL/L (-2.5-2.5); ABG OXYGEN SATURATION 90 % (94-100); ABG PCO2 42 MMHG (35-45); ABG PH 7.41 (7.37-7.43); ABG PO2 55 MMHG (79-93); ABG TCO2 28.4 MMOL/L (21.0-31.0)
[2020-01-12 17:58] LABS: ALLENS TEST YES-POS; INSPIRED O2 2L; PATIENT TEMP 35.2; VENTILATOR NO
[2020-01-12 18:04] LABS: BASOPHILS # (AUTO) 0.1 10^3/uL (0.0-0.1); BASOPHILS % (AUTO) 1 % (0-10); EOSINOPHILS # (AUTO) 0.3 10^3/uL (0.0-0.3); EOSINOPHILS % (AUTO) 5 % (0-10); HEMATOCRIT 35 % (35-52); HEMOGLOBIN 11.8 G/DL (11.5-16.0); LYMPHOCYTES % (AUTO) 29 % (12-44); MEAN CORPUSCULAR HEMOGLOBIN 28 PG (25-34); MEAN CORPUSCULAR HGB CONC 33 G/DL (32-36); MEAN CORPUSCULAR VOLUME 84 FL (80-99); MONOCYTES # (AUTO) 0.8 X 10^3 (0.0-1.0); MONOCYTES % (AUTO) 11 % (0-12); NEUTROPHILS # (AUTO) 3.7 X 10^3 (1.8-7.8); NEUTROPHILS % (AUTO) 54 % (42-75); PLATELET COUNT 211 10^3/uL (130-400); RED CELL DISTRIBUTION WIDTH 14.9 % (10.0-14.5); WHITE BLOOD COUNT 6.9 10^3/uL (4.3-11.0)
[2020-01-12 18:15] LABS: ALBUMIN 3.7 GM/DL (3.2-4.5); POTASSIUM 4.3 MMOL/L (3.6-5.0)
[2020-01-12 18:16] LABS: CALCIUM 8.1 MG/DL (8.5-10.1)
[2020-01-12 18:18] LABS: TOTAL PROTEIN 7.2 GM/DL (6.4-8.2)
[2020-01-12 18:19] LABS: BILIRUBIN,TOTAL 0.3 MG/DL (0.1-1.0)
[2020-01-12 18:21] LABS: CREATININE SERUM 6.14 MG/DL (0.60-1.30)
[2020-01-12 18:24] LABS: MAGNESIUM 2.3 MG/DL (1.6-2.4)
[2020-01-12 18:26] LABS: BILIRUBIN,URINE NEGATIVE (NEGATIVE); CLARITY,URINE CLEAR; COLOR,URINE YELLOW; GLUCOSE, URINE (UA) 1+ (NEGATIVE); KETONES,URINE NEGATIVE (NEGATIVE); LEUKOCYTE ESTERASE ,URINE NEGATIVE (NEGATIVE); NITRITE,URINE NEGATIVE (NEGATIVE); PROTEIN,URINE 3+ (NEGATIVE)
[2020-01-12 18:38] LABS: BACTERIA,URINE FEW /HPF; RBC,URINE RARE /HPF; RENAL EPITHELIAL CELLS,URINE RARE /HPF
[2020-01-12 18:40] LABS: AMPHETAMINE SCREEN, URINE NEGATIVE (NEGATIVE); BARBITURATE SCREEN URINE NEGATIVE (NEGATIVE); BENZODIAZEPINES SCREEN URINE NEGATIVE (NEGATIVE); CANNABINOID SCREEN, URINE NEGATIVE (NEGATIVE); COCAINE SCREEN URINE NEGATIVE (NEGATIVE); METHADONE STAT NEGATIVE (NEGATIVE); METHAMPHETAMINE SCREEN URINE S NEGATIVE (NEGATIVE); OPIATE SCREEN URINE NEGATIVE (NEGATIVE); OXYCODONE STAT NEGATIVE (NEGATIVE); PROPOXYPHENE STAT NEGATIVE (NEGATIVE); TRICYCLIC ANTIDEPRESSANTS SCRE NEGATIVE (NEGATIVE)
--- NOTE | 2020-01-12 18:43 | Diagnostic Imaging Report ---
INDICATION: Chemical inhalation, vomiting and shortness of breath. COMPARISON STUDY: Chest from November 02. FINDINGS: 2 views of the chest demonstrate interval placement of a dialysis catheter with its tip in the mid right atrium. Previous pulmonary infiltrates are clear. The heart size and vascularity are normal. IMPRESSION: 1. Previous infiltrates have cleared. 2. There has been interval placement of a dialysis type catheter. Dictated by: Dictated on workstation # [id number]
--- NOTE | 2020-01-12 19:22 | NUR ---
Called dispatch for transportation to [facility].
[2020-01-12 19:50] VITALS: BP 119/70
== END 2020-01-12 19:50 | disposition short-term general hospital (02) ==
LOC: EDUNIT# 17:29 → ER 17:31
DX: T59.91XA Toxic effect of unspecified gases, fumes and vapors, accidental (unintentional), initial encounter (principal); J96.01 Acute respiratory failure with hypoxia; J68.0 Bronchitis and pneumonitis due to chemicals, gases, fumes and vapors; I10 Essential (primary) hypertension; E11.40 Type 2 diabetes mellitus with diabetic neuropathy, unspecified; G40.909 Epilepsy, unspecified, not intractable, without status epilepticus; F41.9 Anxiety disorder, unspecified; F32.9 Major depressive disorder, single episode, unspecified; D64.9 Anemia, unspecified; Z79.82 Long term (current) use of aspirin; Z79.4 Long term (current) use of insulin; Z87.891 Personal history of nicotine dependence; Z77.22 Contact with and (suspected) exposure to environmental tobacco smoke (acute) (chronic); Z80.0 Family history of malignant neoplasm of digestive organs; Z82.49 Family history of ischemic heart disease and other diseases of the circulatory system
CPT/HCPCS: 36415; 71046; 80053; 80306; 81000; 82805; 82962; 83735; 84484; 85025

== ENCOUNTER 2020-01-27 14:58 | Emergency (ER) | payer MEDICAID ==
[~2020-01-27] VITALS: Ht 169 cm; Wt 63.0 kg
[~2020-01-27 14:58] MED LIST changes: +METF-865 PO; -METF500T19 PO
--- NOTE | 2020-01-27 15:16 | ED General ---
General Chief Complaint: Glucose Problems Stated Complaint: HYPOGLYCEMIA Source of Information: Patient, EMS Exam Limitations: No Limitations History of Present Illness Date Seen by Provider: January 27, 2020 Time Seen by Provider: 15:14 Initial Comments To ER with reports of altered level of consciousness. Family checked her blood sugar knowing her to be an insulin-dependent diabetic and found her to be 39. EMS arrived and gave oral glucose because she was alert and oriented. On arrival to ER fingerstick glucose is 81, she continues to be alert and oriented states she feels well and would like to sign out and go home area and she agrees that she will stay for a brief evaluation if she could be given food. She is a hemodialysis patient on Sunday and received dialysis this morning. Timing/Duration: 1/2 Hour Severity: Mild Associated Systoms: Denies Symptoms Allergies and Home Medications Allergies Coded Allergies: gluten (Verified Allergy, Unknown, 12/20/18) Home Medications Acetaminophen 500 Mg Tablet, 500-1,000 MG PO Q6H PRN for PAIN-MILD, (Reported) Acetaminophen 325 Mg Tablet, 2 TAB PO Q6H PRN for PAIN-MILD Prescribed by: KASANDRA SANCHEZ on 10/01/18942 Aspirin 81 Mg Tablet.dr, 81 MG PO BID, (Reported) Buspirone HCl 30 Mg Tablet, 30 MG PO TID, (Reported) Cefuroxime Axetil 250 Mg Tablet, 250 MG PO BID Prescribed by: LATOYA CHRISTIANSEN on 02/25/191749 Clonidine HCl 0.2 Mg Tablet, 0.2 MG PO BID, (Reported) Cyclobenzaprine HCl 10 Mg Tablet, 10 MG PO TID PRN for MUSCLE SPASMS, (Reported) Doxycycline Hyclate 100 Mg Tablet, 100 MG PO BID Prescribed by: CHAUNCEY THOMAS on 12/20/181909 Ferrous Sulfate 325 Mg Tablet, 325 MG PO BID WITH MEALS Prescribed by: KASANDRA SANCHEZ on 10/01/18 09 Furosemide 20 Mg Tablet, 20 MG PO DAILY, (Reported) Gabapentin 800 Mg Tablet, 800 MG PO QID, (Reported) Hydrocodone Bit/Acetaminophen 1 Tab Tab, 1 EACH PO Q6H PRN for PAIN-MODERATE Prescribed by: ROSS ANG on 10/04/18 1134 Hydrocodone Bit/Acetaminophen 1 Each Tablet, 1 TAB PO Q4-6HR Prescribed by: CHAUNCEY THOMAS on 12/20/181909 Hydrocodone Bit/Acetaminophen 1 Tab Tab, 1 EACH PO Q4-6HR PRN for PAIN-MODERATE Prescribed by: ROSS ANG on 01/01/192020 Insulin Glargine,Hum.rec.anlog 100 Unit/1 Ml Insuln.pen, 24 UNITS SC HS, (Reported) Insulin Lispro 100 Unit/1 Ml Insuln.pen, 6 UNITS SQ AC, (Reported) Levofloxacin 250 Mg Tablet, 250 MG PO DAILY Prescribed by: CHAUNCEY THOMAS on 12/20/181909 Nifedipine 60 Mg Tab.er.24, 60 MG PO BID, (Reported) Phenazopyridine HCl 100 Mg Tablet, 100 MG PO TID Prescribed by: LATOYA CHRISTIANSEN on 02/25/191749 Pramipexole Di-HCl 0.25 Mg Tablet, 0.25 MG PO HS, (Reported) Vit W-Ca,Fe,FA(<1 mg) 1 Each Tablet, 1 TAB PO DAILY, (Reported) Patient Home Medication List Home Medication List Reviewed: Yes Review of Systems Review of Systems Constitutional: see HPI EENTM: see HPI Respiratory: no symptoms reported Cardiovascular: no symptoms reported Genitourinary: no symptoms reported Musculoskeletal: no symptoms reported Skin: no symptoms reported Psychiatric/Neurological: No Symptoms Reported Hematologic/Lymphatic: No Symptoms Reported Immunological/Allergic: no symptoms reported Past Pcpmnyh-Prmjfv-Qmweui Hx Patient Social History Drug of Choice: + IV DRUG USE, EXTENSIVE--WILL NOT STATE WHAT DRUGS SHE HAS U SED. Type Used: Cigarettes Former Smoker, Quit: Oct 04, 2018 2nd Hand Smoke Exposure: Yes Recent Hopitalizations: No Immunizations Up To Date Tetanus Booster (TDap): Unknown PED Vaccines UTD: No Date of Influenza Vaccine: Jul 03, 2016 Seasonal Allergies Seasonal Allergies: No Past Medical History Surgeries: Yes Amputation, Cardiac, Section, Orthopedic Respiratory: Yes (TOBACCOISM) Cardiac: Yes Congenital Heart Disease, Hypertension Neurological: Yes (SEIZURES R/T DIABETES) Neuropathy, Seizure Disorder Reproductive Disorders: No Female Reproductive Disorders: Denies Sexually Transmitted Disease: No HIV/AIDS: No Genitourinary: Yes Bladder Infection, Renal Failure, UTI-Chronic Gastrointestinal: Yes (CELIAC DISEASE; HEPATITIS C--NO TREATMENT) Hepatitis Musculoskeletal: Yes Amputee, Fractures Endocrine: Yes Diabetes, Insulin dep HEENT: No Loss of Vision: Bilateral Hearing Impairment: Denies Cancer: No Psychosocial: Yes (POLYSUBSTANCE ABUSE) Anxiety, Depression Integumentary: Yes (MRSA) Blood Disorders: Yes (HEP C+, ANEMIA) Adverse Reaction/Blood Tranf: No Family Medical History FH: COPD (chronic obstructive pulmonary disease) 19 FATHER FH: congestive heart failure 19 FATHER FH: liver cancer 19 MOTHER No Pertinent Family Hx Physical Exam Vital Signs Vital Signs - First Documented 01/27/20 15:13 Temp 36.3 Pulse 88 Resp 18 B/P (MAP) 150/93 (112) Pulse Ox 95 O2 Delivery Room Air Capillary Refill : Height, Weight, BMI Height: 5'7.00" Weight: 157lbs. 9.0oz. [id number]; 22.00 BMI Method:Stated General Appearance: No Apparent Distress, WD/WN, Other (states she feels back to normal now) Eyes: Bilateral Eye Normal Inspection, Bilateral Eye PERRL, Bilateral Eye EOMI Neck: Full Range of Motion, Normal Inspection Respiratory: No Accessory Muscle Use, No Respiratory Distress Gastrointestinal: Normal Bowel Sounds, Non Tender, Soft Extremity: Normal Capillary Refill, Normal Inspection Neurologic/Psychiatric: Alert, Oriented x3 Skin: Normal Color, Warm/Dry Progress/Results/Core Measures Suspected Sepsis SIRS Temperature: Pulse: Respiratory Rate: Laboratory Tests 01/27/20 15:12: White Blood Count 4.8 Blood Pressure / Mean: Laboratory Tests 01/27/20 15:12: Creatinine 3.56H, Platelet Count 152, Total Bilirubin 0.2 Results/Orders Lab Results Laboratory Tests Test 01/27/20 15:12 01/27/20 15:17 01/27/20 16:00 01/27/20 16:13 Range/Units White Blood Count 4.8 4.3-11.0 10^3/uL Red Blood Count 3.95 L 4.35-5.85 10^6/uL Hemoglobin 10.7 L 11.5-16.0 G/DL Hematocrit 33 L 35-52 % Mean Corpuscular Volume 85 80-99 FL Mean Corpuscular Hemoglobin 27 25-34 PG Mean Corpuscular Hemoglobin Concent 32 32-36 G/DL Red Cell Distribution Width 13.9 10.0-14.5 % Platelet Count 152 130-400 10^3/uL Mean Platelet Volume 11.4 H 7.4-10.4 FL Neutrophils (%) (Auto) 39 L 42-75 % Lymphocytes (%) (Auto) 40 12-44 % Monocytes (%) (Auto) 12 0-12 % Eosinophils (%) (Auto) 7 0-10 % Basophils (%) (Auto) 2 0-10 % Neutrophils # (Auto) 1.9 1.8-7.8 X 10^3 Lymphocytes # (Auto) 1.9 1.0-4.0 X 10^3 Monocytes # (Auto) 0.6 0.0-1.0 X 10^3 Eosinophils # (Auto) 0.3 0.0-0.3 10^3/uL Basophils # (Auto) 0.1 0.0-0.1 10^3/uL Sodium Level 141 135-145 MMOL/L Potassium Level 5.1 H 3.6-5.0 MMOL/L Chloride Level 102 98-107 MMOL/L Carbon Dioxide Level 28 21-32 MMOL/L Anion Gap 11 5-14 MMOL/L Blood Urea Nitrogen 22 H 7-18 MG/DL Creatinine 3.56 H 0.60-1.30 MG/DL Estimat Glomerular Filtration Rate 14 BUN/Creatinine Ratio 6 Glucose Level 97 70-105 MG/DL Calcium Level 7.7 L 8.5-10.1 MG/DL Corrected Calcium 8.1 L 8.5-10.1 MG/DL Total Bilirubin 0.2 0.1-1.0 MG/DL Aspartate Amino Transf (AST/SGOT) 42 H 5-34 U/L Alanine Aminotransferase (ALT/SGPT) 38 0-55 U/L Alkaline Phosphatase 192 H 40-136 U/L Total Protein 7.1 6.4-8.2 GM/DL Albumin 3.5 3.2-4.5 GM/DL Serum Test, Qualitative NEGATIVE NEGATIVE Glucometer 103 224 H 70-110 MG/DL Urine Color YELLOW Urine Clarity CLEAR Urine pH 8.5 5-9 Urine Specific [place] 1.015 L 1.016-1.022 Urine Protein 3+ H NEGATIVE Urine Glucose (UA) 1+ H NEGATIVE Urine Ketones NEGATIVE NEGATIVE Urine Nitrite NEGATIVE NEGATIVE Urine Bilirubin NEGATIVE NEGATIVE Urine Urobilinogen 0.2 < = 1.0 MG/DL Urine Leukocyte Esterase TRACE H NEGATIVE Urine RBC (Auto) 1+ H NEGATIVE Urine RBC 10-25 H /HPF Urine WBC 10-25 H /HPF Urine Squamous Epithelial Cells 5-10 /HPF Urine Crystals NONE /LPF Urine Bacteria FEW H /HPF Urine Casts NONE /LPF Urine Mucus NEGATIVE /LPF Urine Trichomonas MODERATE H /HPF Urine Culture Indicated YES My Orders Orders - LATOYA CHRISTIANSEN APRN Cho 60g/M 3snack (16-2000 Caden) (01/27/20 Lunch) Accucheck Stat ONCE (01/27/20 15:02) Cbc With Automated Diff (01/27/20 15:02) Comprehensive Metabolic Panel (01/27/20 15:02) Ua Culture If Indicated (01/27/20 15:02) Hcg,Qualitative Serum (01/27/20 15:02) Accucheck Stat ONCE (01/27/20 15:40) Urine Culture (01/27/20 16:00) Vital Signs/I&O 01/27/20 01/27/20 15:13 16:36 Temp 36.3 36.3 Pulse 88 78 Resp 18 18 B/P (MAP) 150/93 (112) 145/82 (112) Pulse Ox 95 96 O2 Delivery Room Air Room Air Capillary Refill : Departure Impression Primary Impression: Hypoglycemia Additional Impressions: Type 1 diabetes mellitus ESRD (end stage renal disease) on dialysis Disposition: 01 HOME, SELF-CARE Condition: Improved Departure-Patient Inst. Decision time for Depature: 15:15 [facility]) Primary Care Physician Patient Instructions: HYPOGLYCEMIA Add. Discharge Instructions: All discharge instructions reviewed with patient and/or family. Voiced un derstanding. LATOYA CHRISTIANSEN APRN January 27, 2020 15:15
[2020-01-27 15:24] LABS: BASOPHILS # (AUTO) 0.1 10^3/uL (0.0-0.1); BASOPHILS % (AUTO) 2 % (0-10); EOSINOPHILS # (AUTO) 0.3 10^3/uL (0.0-0.3); EOSINOPHILS % (AUTO) 7 % (0-10); HEMATOCRIT 33 % (35-52); HEMOGLOBIN 10.7 G/DL (11.5-16.0); LYMPHOCYTES # (AUTO) 1.9 X 10^3 (1.0-4.0); LYMPHOCYTES % (AUTO) 40 % (12-44); MEAN CORPUSCULAR HEMOGLOBIN 27 PG (25-34); MEAN CORPUSCULAR HGB CONC 32 G/DL (32-36); MEAN CORPUSCULAR VOLUME 85 FL (80-99); MEAN PLATELET VOLUME 11.4 FL (7.4-10.4); MONOCYTES # (AUTO) 0.6 X 10^3 (0.0-1.0); MONOCYTES % (AUTO) 12 % (0-12); NEUTROPHILS # (AUTO) 1.9 X 10^3 (1.8-7.8); NEUTROPHILS % (AUTO) 39 % (42-75); PLATELET COUNT 152 10^3/uL (130-400); RED CELL DISTRIBUTION WIDTH 13.9 % (10.0-14.5); WHITE BLOOD COUNT 4.8 10^3/uL (4.3-11.0)
[2020-01-27 15:35] LABS: ALBUMIN 3.5 GM/DL (3.2-4.5); POTASSIUM 5.1 MMOL/L (3.6-5.0)
--- NOTE | 2020-01-27 15:35 | NUR ---
FOOD TRAY GIVEN.
[2020-01-27 15:36] LABS: CALCIUM 7.7 MG/DL (8.5-10.1)
[2020-01-27 15:38] LABS: TOTAL PROTEIN 7.1 GM/DL (6.4-8.2)
[2020-01-27 15:40] LABS: BILIRUBIN,TOTAL 0.2 MG/DL (0.1-1.0)
[2020-01-27 15:41] LABS: CREATININE SERUM 3.56 MG/DL (0.60-1.30)
[2020-01-27 16:17] LABS: BILIRUBIN,URINE NEGATIVE (NEGATIVE); CLARITY,URINE CLEAR; COLOR,URINE YELLOW; GLUCOSE, URINE (UA) 1+ (NEGATIVE); KETONES,URINE NEGATIVE (NEGATIVE); LEUKOCYTE ESTERASE ,URINE TRACE (NEGATIVE); NITRITE,URINE NEGATIVE (NEGATIVE); PH,URINE 8.5 (5-9); PROTEIN,URINE 3+ (NEGATIVE)
[2020-01-27 16:25] LABS: BACTERIA,URINE FEW /HPF
[2020-01-27 16:26] LABS: TRICHOMONAS,URINE MODERATE /HPF
[2020-01-27 16:36] VITALS: BP 145/82
== END 2020-01-27 16:38 | disposition home or self-care (01) ==
LOC: EDUNIT# 14:58 → ER 14:59
DX: E10.649 Type 1 diabetes mellitus with hypoglycemia without coma (principal); E10.22 Type 1 diabetes mellitus with diabetic chronic kidney disease; I12.0 Hypertensive chronic kidney disease with stage 5 chronic kidney disease or end stage renal disease; N18.6 End stage renal disease; E10.40 Type 1 diabetes mellitus with diabetic neuropathy, unspecified; F41.9 Anxiety disorder, unspecified; F32.9 Major depressive disorder, single episode, unspecified; D64.9 Anemia, unspecified; Z99.2 Dependence on renal dialysis; Z88.8 Allergy status to other drugs, medicaments and biological substances; Z79.82 Long term (current) use of aspirin; Z79.4 Long term (current) use of insulin; Z87.891 Personal history of nicotine dependence; Z77.22 Contact with and (suspected) exposure to environmental tobacco smoke (acute) (chronic); Z80.0 Family history of malignant neoplasm of digestive organs; Z82.49 Family history of ischemic heart disease and other diseases of the circulatory system
CPT/HCPCS: 36415; 80053; 81000; 82962; 84703; 85025; 87088

== ENCOUNTER → 2020-03-04 | Outpatient (CLI) | payer MEDICAID | LOC: LABNPT 07:36 | DX: Z11.59 Encounter for screening for other viral diseases (principal) ==

== ENCOUNTER 2020-03-15 22:32 | Emergency (ER) | payer MEDICAID ==
[~2020-03-15] VITALS: Ht 176 cm; Wt 63.5 kg
--- NOTE | 2020-03-15 23:27 | ED Dyspnea ---
General Stated Complaint: FEVER/PRODUCTIVE COUGH/SOB Source of Information: Patient History of Present Illness Date Seen by Provider: Mar 15, 2020 Time Seen by Provider: 22:50 Initial Comments PT ARRIVES VIA POV FROM HOME C/O SHORTNESS OF BREATH X 1 WEEK, GETTING WORSE HAS HAD A PRODUCTIVE COUGH WITH YELLOW SPUTUM X 1 WEEK HAS HAD SUBJECTIVE FEVER/SWEATS/CHILLS C/O BODY ACHES C/O HEADACHE NO CHEST PAIN NO SWELLING IN LEGS/ FEET OR PAIN IN CALVES HAS NOT SOUGHT CARE UNTIL TONIGHT PT IS INSULIN DEPENDENT DIABETIC PT ALSO HAS CHRONIC RENAL FAILURE AND HAS BEEN ON HEMODIALYSIS FOR APPROXIMATELY 6 MONTHS--GETS DIALYSIS SUNDAY, SUNDAY, SUNDAY, AND LAST SESSION WAS Sunday03/13/20. NEXT ONE IS DUE IN THE MORNING. HAS LEFT CENTRAL LINE FOR DIALYSIS PT IS ALSO SCHEDULED TO HAVE SURGERY ON Sunday03/17/20 TO HAVE A-V DIALYSIS GRAFT/FISTULA PLACED--AT PT HAD OUTPATIENT PRE-OP COVID TESTING HERE EARLIER TODAY, RESULTS NOT BACK AT THIS TIME. LMP--UNKNOWN, S/P BTL MULTITUDE OF ER VISITS NO KNOWN SICK CONTACTS OR EXPOSURE TO COVID-19 CHILD AT HOME IS NOT ILL. STATES NO ONE ELSE LIVES IN THE HOME PCP: LUISANA-TABBY, GOLF SUPERINTENDENT DIOMEDES SMITH CLOTH SECONDS SORTER: DR. Hubbard" WITH [facility] [place] Allergies and Home Medications Allergies Coded Allergies: gluten (Verified Allergy, Unknown, 12/20/18) Home Medications Acetaminophen 500 Mg Tablet, 500-1,000 MG PO Q6H PRN for PAIN-MILD, (Reported) Acetaminophen 325 Mg Tablet, 2 TAB PO Q6H PRN for PAIN-MILD Prescribed by: KASANDRA SANCHEZ on 10/01/18 0977 Aspirin 81 Mg Tablet.dr, 81 MG PO BID, (Reported) Buspirone HCl 30 Mg Tablet, 30 MG PO TID, (Reported) Cefuroxime Axetil 250 Mg Tablet, 250 MG PO BID Prescribed by: LATOYA CHRISTIANSEN on 02/25/19 175 Clonidine HCl 0.2 Mg Tablet, 0.2 MG PO BID, (Reported) Cyclobenzaprine HCl 10 Mg Tablet, 10 MG PO TID PRN for MUSCLE SPASMS, (Reported) Doxycycline Hyclate 100 Mg Tablet, 100 MG PO BID Prescribed by: CHAUNCEY THOMAS on 12/20/181909 Ferrous Sulfate 325 Mg Tablet, 325 MG PO BID WITH MEALS Prescribed by: KASANDRA SANCHEZ on 10/01/18 0943 Furosemide 20 Mg Tablet, 20 MG PO DAILY, (Reported) Gabapentin 800 Mg Tablet, 800 MG PO QID, (Reported) Hydrocodone Bit/Acetaminophen 1 Tab Tab, 1 EACH PO Q6H PRN for PAIN-MODERATE Prescribed by: ROSS ANG on 10/04/18 113 Hydrocodone Bit/Acetaminophen 1 Each Tablet, 1 TAB PO Q4-6HR Prescribed by: CHAUNCEY THOMAS on 12/20/181909 Hydrocodone Bit/Acetaminophen 1 Tab Tab, 1 EACH PO Q4-6HR PRN for PAIN-MODERATE Prescribed by: ROSS ANG on 01/01/192020 Insulin Glargine,Hum.rec.anlog 100 Unit/1 Ml Insuln.pen, 24 UNITS SC HS, (Reported) Insulin Lispro 100 Unit/1 Ml Insuln.pen, 6 UNITS SQ AC, (Reported) Levofloxacin 250 Mg Tablet, 250 MG PO DAILY Prescribed by: CHAUNCEY THOMAS on 12/20/181909 Nifedipine 60 Mg Tab.er.24, 60 MG PO BID, (Reported) Phenazopyridine HCl 100 Mg Tablet, 100 MG PO TID Prescribed by: LATOYA CHRISTIANSEN on 02/25/191749 Pramipexole Di-HCl 0.25 Mg Tablet, 0.25 MG PO HS, (Reported) Vit W-Ca,Fe,FA(<1 mg) 1 Each Tablet, 1 TAB PO DAILY, (Reported) Patient Home Medication List Home Medication List Reviewed: Yes Review of Systems Review of Systems Constitutional: see HPI, diaphoresis, fever, malaise, weakness EENTM: no symptoms reported Respiratory: see HPI, cough, phlegm, short of breath; No wheezing Cardiovascular: no symptoms reported; No chest pain, No edema, No palpitations, No syncope Gastrointestinal: no symptoms reported; No abdominal pain, No nausea, No vomiting Genitourinary: see HPI Musculoskeletal: see HPI (BODY ACHES) Skin: no symptoms reported Psychiatric/Neurological: See HPI, Headache Endocrine: No Symptoms Reported Hematologic/Lymphatic: No Symptoms Reported Past Izwacpz-Gjkkad-Mtokxo Hx Past Med/Social Hx: Reviewed and Corrections made Patient Social History Alcohol Use: Past History (HISTORY OF ABUSE, CLAIMS NO RECENT USE) Recreational Drug Use: Yes (+ IV DRUG USE--METH) Drug of Choice: + IV DRUG USE, EXTENSIVE--METH. Smoking Status: Current Everyday Smoker (1 PPD) Type Used: Cigarettes 2nd Hand Smoke Exposure: Yes Recent Foreign Travel: No Contact w/Someone Who Travel: No Recent Hopitalizations: Yes (01/2020 INHALATION INJURY) Immunizations Up To Date Tetanus Booster (TDap): Unknown PED Vaccines UTD: No Date of Influenza Vaccine: Jul 03, 2016 Seasonal Allergies Seasonal Allergies: No Past Medical History Surgeries: Yes (RIGHT 2ND/3RD TOES AMPUTATED DUE TO OSTEOMYELITIS) Amputation, Cardiac, Section, Orthopedic, Tubal Ligation Respiratory: Yes (TOBACCOISM) Pneumonia Cardiac: Yes Congenital Heart Disease, Hypertension Neurological: Yes (SEIZURES R/T DIABETES) Neuropathy, Seizure Disorder Reproductive Disorders: No Female Reproductive Disorders: Denies Sexually Transmitted Disease: No HIV/AIDS: No Genitourinary: Yes Bladder Infection, Renal Failure, Dialysis, UTI-Chronic Gastrointestinal: Yes (CELIAC DISEASE; HEPATITIS C--NO TREATMENT) Hepatitis Musculoskeletal: Yes (RIGH T2ND/3RD TOES AMPUTATED DUE TO OSTEOMYELITIS) Amputee, Fractures Endocrine: Yes (EXTENSIVE HX OF NON-COMPLIANCY IN ALL ASPECTS OF CARE) Diabetes, Insulin dep HEENT: No Loss of Vision: Bilateral Hearing Impairment: Denies Cancer: No Psychosocial: Yes (POLYSUBSTANCE ABUSE) Anxiety, Depression Integumentary: Yes (MRSA) Blood Disorders: Yes (HEP C+, ANEMIA) Adverse Reaction/Blood Tranf: No Family Medical History FH: COPD (chronic obstructive pulmonary disease) 19 FATHER FH: congestive heart failure 19 FATHER FH: liver cancer 19 MOTHER No Pertinent Family Hx Physical Exam Vital Signs Vital Signs - First Documented 03/15/20 03/16/20 22:53 01:22 Temp 37.5 Pulse 89 Resp 18 B/P (MAP) 158/94 (115) Pulse Ox 87 O2 Delivery Room Air O2 Flow Rate 2.00 Capillary Refill : Height, Weight, BMI Height: 5'7.00" Weight: 157lbs. 9.0oz. 71.111676ao; 22.00 BMI Method:Stated General Appearance: No Apparent Distress, WD/WN, Other (REEKS OF CIGARETTES, ) HEENT: PERRL/EOMI Neck: Normal Inspection Respiratory: No Accessory Muscle Use, No Respiratory Distress, Decreased Breath Sounds (IN BASES BILATERALLY) Cardiovascular: Regular Rate, Rhythm, No Edema, No JVD, No Murmur, Normal Peripheral Pulses Gastrointestinal: Normal Bowel Sounds, No Organomegaly, No Pulsatile Mass, Non Tender, Soft Extremity: Normal Capillary Refill, Normal Range of Motion, Non Tender, No Calf Tenderness, No Pedal Edema Neurologic/Psychiatric: Alert, Oriented x3, No Motor/Sensory Deficits (HX OF NEUROPATHY), Normal Mood/Affect, receiving dock 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 II-XII Norm as Tested Skin: Normal Color, Warm/Dry; No Rash; Tattoos/Piercings Focused Exam Lactate Level 03/15/20 23:08: Lactic Acid Level 0.79 Lactic Acid Level Laboratory Tests Test 03/15/20 23:08 Lactic Acid Level 0.79 MMOL/L (0.50-2.00) Progress/Results/Core Measures Results/Orders Lab Results Laboratory Tests Test 03/15/20 23:08 03/15/20 23:17 Range/Units White Blood Count 13.0 H 4.3-11.0 10^3/uL Red Blood Count 3.65 L 4.35-5.85 10^6/uL Hemoglobin 10.1 L 11.5-16.0 G/DL Hematocrit 31 L 35-52 % Mean Corpuscular Volume 85 80-99 FL Mean Corpuscular Hemoglobin 28 25-34 PG Mean Corpuscular Hemoglobin Concent 33 32-36 G/DL Red Cell Distribution Width 13.7 10.0-14.5 % Platelet Count 216 130-400 10^3/uL Mean Platelet Volume 12.6 H 7.4-10.4 FL Neutrophils (%) (Auto) 72 42-75 % Lymphocytes (%) (Auto) 15 12-44 % Monocytes (%) (Auto) 11 0-12 % Eosinophils (%) (Auto) 2 0-10 % Basophils (%) (Auto) 1 0-10 % Neutrophils # (Auto) 9.4 H 1.8-7.8 X 10^3 Lymphocytes # (Auto) 1.9 1.0-4.0 X 10^3 Monocytes # (Auto) 1.4 H 0.0-1.0 X 10^3 Eosinophils # (Auto) 0.3 0.0-0.3 10^3/uL Basophils # (Auto) 0.1 0.0-0.1 10^3/uL Erythrocyte Sedimentation Rate 96 H 0-20 MM/HR Prothrombin Time 13.1 12.2-14.7 SEC INR Comment 1.0 0.8-1.4 Activated Partial Thromboplast Time 23 L 24-35 SEC D-Dimer 0.86 H 0.00-0.49 UG/ML Sodium Level 135 135-145 MMOL/L Potassium Level 5.1 H 3.6-5.0 MMOL/L Chloride Level 95 L 98-107 MMOL/L Carbon Dioxide Level 22 21-32 MMOL/L Anion Gap 18 H 5-14 MMOL/L Blood Urea Nitrogen 41 H 7-18 MG/DL Creatinine 6.92 H 0.60-1.30 MG/DL Estimat Glomerular Filtration Rate 7 BUN/Creatinine Ratio 6 Glucose Level 202 H 70-105 MG/DL Lactic Acid Level 0.79 0.50-2.00 MMOL/L Calcium Level 8.9 8.5-10.1 MG/DL Corrected Calcium 9.0 8.5-10.1 MG/DL Magnesium Level 2.6 H 1.6-2.4 MG/DL Total Bilirubin 0.4 0.1-1.0 MG/DL Aspartate Amino Transf (AST/SGOT) 17 5-34 U/L Alanine Aminotransferase (ALT/SGPT) 13 0-55 U/L Alkaline Phosphatase 247 H 40-136 U/L Lactate Dehydrogenase 277 H 125-220 U/L C-Reactive Protein High Sensitivity 12.74 H 0.00-0.50 MG/DL Total Protein 8.2 6.4-8.2 GM/DL Albumin 3.9 3.2-4.5 GM/DL Procalcitonin 0.26 H <0.10 NG/ML Serum Alcohol < 10 <10 MG/DL Urine Color YELLOW Urine Clarity CLOUDY Urine pH 8.0 5-9 Urine Specific [place] 1.015 L 1.016-1.022 Urine Protein 3+ H NEGATIVE Urine Glucose (UA) 2+ H NEGATIVE Urine Ketones NEGATIVE NEGATIVE Urine Nitrite NEGATIVE NEGATIVE Urine Bilirubin NEGATIVE NEGATIVE Urine Urobilinogen 0.2 < = 1.0 MG/DL Urine Leukocyte Esterase 1+ H NEGATIVE Urine RBC (Auto) TRACE-I NEGATIVE Urine RBC RARE /HPF Urine WBC >100 H /HPF Urine Squamous Epithelial Cells 10-25 H /HPF Urine Crystals NONE /LPF Urine Bacteria FEW H /HPF Urine Casts NONE /LPF Urine Mucus LARGE H /LPF Urine Culture Indicated YES Urine Test NEGATIVE NEGATIVE Urine Opiates Screen NEGATIVE NEGATIVE Urine Oxycodone Screen NEGATIVE NEGATIVE Urine Methadone Screen NEGATIVE NEGATIVE Urine Propoxyphene Screen NEGATIVE NEGATIVE Urine Barbiturates Screen NEGATIVE NEGATIVE Ur Tricyclic Antidepressants Screen NEGATIVE NEGATIVE Urine Phencyclidine Screen NEGATIVE NEGATIVE Urine Amphetamines Screen NEGATIVE NEGATIVE Urine Methamphetamines Screen NEGATIVE NEGATIVE Urine Benzodiazepines Screen NEGATIVE NEGATIVE Urine Cocaine Screen NEGATIVE NEGATIVE Urine Cannabinoids Screen NEGATIVE NEGATIVE My Orders Orders - KAUSHAL LOUIS DO Cbc With Automated Diff (03/15/20 22:49) Comprehensive Metabolic Panel (03/15/20 22:49) Fibrin Degradation Products (03/15/20 22:49) Hs C Reactive Protein (03/15/20 22:49) Erythrocyte Sedimentation Rate (03/15/20 22:49) LDH (03/15/20 22:49) Blood Culture (03/15/20 22:49) Ekg Tracing (03/15/20 22:49) Chest 1 View, Ap/Pa Only (03/15/20 22:49) Hcg,Qualitative Urine (03/15/20 22:49) Ekg Tracing (03/15/20 22:49) Monitor-Rhythm Ecg Trace Only (03/15/20 22:49) Magnesium (03/15/20 22:49) Procalcitonin (Pct) (03/15/20 22:49) Protime With Inr (03/15/20 22:49) Partial Thromboplastin Time (03/15/20 22:49) Ua Culture If Indicated (03/15/20 22:49) Lactic Acid Analyzer (03/15/20 22:49) Urine Culture (03/15/20 23:17) Alcohol (03/15/20 23:46) Drug Screen Stat (Urine) (03/15/20 23:46) Ceftriaxone For Iv Use (Rocephin For I (03/16/20 00:00) Azithromycin Injection (Zithromax Inject (03/16/20 00:00) Acetaminophen Tablet (Tylenol Tablet) (03/16/20 00:11) Acetaminophen Tablet (Tylenol Tablet) (03/16/20 00:30) Medications Given in ED Current Medications Medications Dose Ordered Sig/Dipti Route Start Time Stop Time Status Last Admin Dose Admin Acetaminophen 500 mg STK-MED ONCE .ROUTE 03/16/20 00:11 03/16/20 00:14 DC 03/16/20 00:18 1,000 MG Azithromycin 500 mg/Sodium Chloride 250 ml @ 250 mls/hr ONCE ONCE IV 03/16/20 00:00 03/16/20 00:59 DC 03/16/20 00:11 250 MLS/HR Ceftriaxone Sodium 1000 mg/ Sterile Water 10 ml @ 200 mls/hr ONCE ONCE IV 03/16/20 00:00 03/16/20 00:02 DC 03/16/20 00:05 200 MLS/HR Vital Signs/I&O 03/15/20 03/16/20 03/16/20 22:53 00:18 01:22 Temp 37.5 37.5 37.5 Pulse 89 95 Resp 18 18 B/P (MAP) 158/94 (115) 121/77 Pulse Ox 87 97 O2 Delivery Room Air Room Air O2 Flow Rate 2.00 Progress Progress Note : Progress Note PT PLACED IN ISOLATION ROOM. PPE WORN AT ALL TIMES COVID-19 TESTING PERFORMED O2 SAT 87% ON ROOM AIR--UP TO MID 90'S ON 2L/NC NO DETERIORATION IN PT'S CONDITION VITALS STABLE PT HAD NO OBVIOUS DYSPNEA DURING ER STAY Initial ECG Impression Date: Mar 15, 2020 Initial ECG Impression Time: 23:07 Initial ECG Rate: 87 Initial ECG Rhythm: Normal Sinus Diagnostic Imaging Comments CXR--RML/RLL INFILTRATES, PENDING RADIOLOGIST REVIEW Reviewed: Reviewed by Id Departure Communication (Admissions) [id number]--CALLED [facility], [facility]AGING HOSPITALIST, WILL CALL BACK 0020--[facility] CALLED. PT HAS BEEN ACCEPTED BY DR. TRIMBLE, HOSPITALIST. NO ADDITIONAL RECOMMENDATIONS AT THIS TIME. Impression Primary Impression: RIGHT SIDED PNEUMONIA Additional Impressions: Hypoxia COVID P.U.I. ESRD on dialysis UTI (urinary tract infection) Disposition: XFER SHT-TRM HOSP Condition: Improved Transfer Transfer Reason: Exceeds level of care Transfer Facility: Method of Transfer: EMS Departure-Patient Inst. Referrals: [facility] (PCP/Family) Primary Care Physician KAUSHAL LOUIS DO Mar 15, 2020 23:27
[2020-03-15 23:28] LABS: BILIRUBIN,URINE NEGATIVE (NEGATIVE); CLARITY,URINE CLOUDY; COLOR,URINE YELLOW; GLUCOSE, URINE (UA) 2+ (NEGATIVE); KETONES,URINE NEGATIVE (NEGATIVE); LEUKOCYTE ESTERASE ,URINE 1+ (NEGATIVE); NITRITE,URINE NEGATIVE (NEGATIVE); PROTEIN,URINE 3+ (NEGATIVE)
[2020-03-15 23:30] LABS: BASOPHILS # (AUTO) 0.1 10^3/uL (0.0-0.1); BASOPHILS % (AUTO) 1 % (0-10); EOSINOPHILS # (AUTO) 0.3 10^3/uL (0.0-0.3); EOSINOPHILS % (AUTO) 2 % (0-10); HEMATOCRIT 31 % (35-52); HEMOGLOBIN 10.1 G/DL (11.5-16.0); LYMPHOCYTES # (AUTO) 1.9 X 10^3 (1.0-4.0); LYMPHOCYTES % (AUTO) 15 % (12-44); MEAN CORPUSCULAR HEMOGLOBIN 28 PG (25-34); MEAN CORPUSCULAR HGB CONC 33 G/DL (32-36); MEAN CORPUSCULAR VOLUME 85 FL (80-99); MEAN PLATELET VOLUME 12.6 FL (7.4-10.4); MONOCYTES # (AUTO) 1.4 X 10^3 (0.0-1.0); MONOCYTES % (AUTO) 11 % (0-12); NEUTROPHILS # (AUTO) 9.4 X 10^3 (1.8-7.8); NEUTROPHILS % (AUTO) 72 % (42-75); PLATELET COUNT 216 10^3/uL (130-400); RED CELL DISTRIBUTION WIDTH 13.7 % (10.0-14.5)
[2020-03-15 23:36] LABS: ALBUMIN 3.9 GM/DL (3.2-4.5)
[2020-03-15 23:37] LABS: POTASSIUM 5.1 MMOL/L (3.6-5.0)
[2020-03-15 23:38] LABS: CALCIUM 8.9 MG/DL (8.5-10.1)
[2020-03-15 23:39] LABS: TOTAL PROTEIN 8.2 GM/DL (6.4-8.2)
[2020-03-15 23:39] LABS: BACTERIA,URINE FEW /HPF; HCG,QUALITATIVE URINE NEGATIVE (NEGATIVE); RBC,URINE RARE /HPF; WBC,URINE >100 /HPF
[2020-03-15 23:40] LABS: FIBRIN DEGRADATION PRODUCTS 0.86 UG/ML (0.00-0.49); PROTHROMBIN TIME PATIENT 13.1 SEC (12.2-14.7)
[2020-03-15 23:41] LABS: BILIRUBIN,TOTAL 0.4 MG/DL (0.1-1.0)
[2020-03-15 23:43] LABS: CREATININE SERUM 6.92 MG/DL (0.60-1.30)
[2020-03-15 23:46] LABS: MAGNESIUM 2.6 MG/DL (1.6-2.4)
[2020-03-15 23:58] LABS: ERYTHROCYTE SEDIMENTATION RATE 96 MM/HR (0-20)
[2020-03-16] MEDS ORDERED: AZITHROMYCIN INJECTION 500 MG in NS (IVPB) 250 ML IV ONE ×2
[2020-03-16] MEDS ORDERED: cefTRIAXone FOR IV USE 1,000 MG in WATER (STERILE) FOR INJECTION 10 ML IV ONE ×2
[2020-03-16 00:04] LABS: AMPHETAMINE SCREEN, URINE NEGATIVE (NEGATIVE); BARBITURATE SCREEN URINE NEGATIVE (NEGATIVE); BENZODIAZEPINES SCREEN URINE NEGATIVE (NEGATIVE); CANNABINOID SCREEN, URINE NEGATIVE (NEGATIVE); COCAINE SCREEN URINE NEGATIVE (NEGATIVE); METHADONE STAT NEGATIVE (NEGATIVE); METHAMPHETAMINE SCREEN URINE S NEGATIVE (NEGATIVE); OPIATE SCREEN URINE NEGATIVE (NEGATIVE); OXYCODONE STAT NEGATIVE (NEGATIVE); PROPOXYPHENE STAT NEGATIVE (NEGATIVE); TRICYCLIC ANTIDEPRESSANTS SCRE NEGATIVE (NEGATIVE)
[2020-03-16] MEDS ORDERED: ACETAMINOPHEN 500 MG TAB (TYLENOL) ONE (00:11)
[2020-03-16] MEDS ORDERED: ACETAMINOPHEN 500 MG TAB (TYLENOL) PO ONE (00:30)
[2020-03-16 01:22] VITALS: BP 121/77
--- NOTE | 2020-03-16 06:36 | Diagnostic Imaging Report ---
Indication: Pneumonia Comparison: 01/12/2020 Findings: Single view of the chest demonstrates infiltrate in the right upper lobe and right base likely pneumonia. The heart is prominent without overt pulmonary edema. Trace effusion is suspected in the right costophrenic angle. There is no pneumothorax. Dialysis catheter is in good position. Impression: Right upper and lower lobe pneumonia. Dictated by: Dictated on workstation # [id number]
== END 2020-03-16 01:30 | disposition short-term general hospital (02) ==
LOC: EDUNIT# 22:32 → ER 22:33
DX: J18.9 Pneumonia, unspecified organism (principal); R09.02 Hypoxemia; N39.0 Urinary tract infection, site not specified; E11.22 Type 2 diabetes mellitus with diabetic chronic kidney disease; I12.0 Hypertensive chronic kidney disease with stage 5 chronic kidney disease or end stage renal disease; N18.6 End stage renal disease; E11.40 Type 2 diabetes mellitus with diabetic neuropathy, unspecified; F17.210 Nicotine dependence, cigarettes, uncomplicated; G40.909 Epilepsy, unspecified, not intractable, without status epilepticus; F41.9 Anxiety disorder, unspecified; F32.9 Major depressive disorder, single episode, unspecified; D64.9 Anemia, unspecified; Z79.82 Long term (current) use of aspirin; Z79.4 Long term (current) use of insulin; Z99.2 Dependence on renal dialysis; Z20.828 Contact with and (suspected) exposure to other viral communicable diseases; Z89.421 Acquired absence of other right toe(s); Z80.0 Family history of malignant neoplasm of digestive organs; Z82.49 Family history of ischemic heart disease and other diseases of the circulatory system
CPT/HCPCS: 71045; 80053; 80306; 81000; 83605; 83615; 83735; 84145; 84703; 85025; 85379; 85610; 85652; 85730; 86141; 87040; 87088; 93005; 93041; 96374; 96375; 99285; G0480; 36415; 80320

== ENCOUNTER → 2020-03-15 | Outpatient (CLI) | payer MEDICAID | LOC: LABNPT 06:48 | DX: Z11.59 Encounter for screening for other viral diseases (principal) | CPT/HCPCS: 87635 ==

== ENCOUNTER 2020-04-15 15:12 | Emergency (ER) | payer MEDICAID ==
[~2020-04-15] VITALS: Ht 170 cm; Wt 65.7 kg
[2020-04-15] MEDS ORDERED: HYDROcodone/APAP 5 MG/325 MG (LORTAB) TAB PO ONE (15:45)
--- NOTE | 2020-04-15 15:46 | ED Lower Extremity ---
General Chief Complaint: Lower Extremity Stated Complaint: L FOOT PAIN Nursing Triage Note: PT STATES SHE SLIPPED ON A HARDWOOD FLOOR WHILE HOLDING HER CHILD AND FELL HURTING HER LT ANKLE. Nursing Sepsis Screen: No Definite Risk Source: patient Exam Limitations: no limitations (LENKA FLETCHER STUDENT) History of Present Illness Date Seen by Provider: Apr 15, 2020 Time Seen by Provider: 15:30 Initial Comments She Galvin is a 34 year old female seen today due to L ankle pain. She reports slipping while holding her child and falling onto her bed, twisting her ankle in the process. She is unsure what direction she twisted her ankle, but reports hearing a pop. She was able to walk initially, but was entered the ER using a wheelchair, is not able to bear weight on her L ankle currently. She feels pain on bilateral L malleoli and the plantar surface of her foot. She has reduced mobility of the L ankle and toes. Denies any sensation loss. Severity: moderate Pain/Injury Location: left foot, left ankle, left heel Method of Injury: fell (LENKA FLETCHER STUDENT) Allergies and Home Medications Allergies Coded Allergies: gluten (Verified Allergy, Unknown, 12/20/18) Home Medications Acetaminophen 500 Mg Tablet, 500-1,000 MG PO Q6H PRN for PAIN-MILD, (Reported) Acetaminophen 325 Mg Tablet, 2 TAB PO Q6H PRN for PAIN-MILD Prescribed by: KASANDRA SANCHEZ on 10/01/18942 Aspirin 81 Mg Tablet.dr, 81 MG PO BID, (Reported) Buspirone HCl 30 Mg Tablet, 30 MG PO TID, (Reported) Cefuroxime Axetil 250 Mg Tablet, 250 MG PO BID Prescribed by: LATOYA CHRISTIANSEN on 02/25/191749 Clonidine HCl 0.2 Mg Tablet, 0.2 MG PO BID, (Reported) Cyclobenzaprine HCl 10 Mg Tablet, 10 MG PO TID PRN for MUSCLE SPASMS, (Reported) Doxycycline Hyclate 100 Mg Tablet, 100 MG PO BID Prescribed by: CHAUNCEY THOMAS on 12/20/181909 Ferrous Sulfate 325 Mg Tablet, 325 MG PO BID WITH MEALS Prescribed by: KASANDRA SANCHEZ on 10/01/18942 Furosemide 20 Mg Tablet, 20 MG PO DAILY, (Reported) Gabapentin 800 Mg Tablet, 800 MG PO QID, (Reported) Hydrocodone Bit/Acetaminophen 1 Tab Tab, 1 EACH PO Q6H PRN for PAIN-MODERATE Prescribed by: ROSS ANG on 10/04/18 1134 Hydrocodone Bit/Acetaminophen 1 Each Tablet, 1 TAB PO Q4-6HR Prescribed by: CHAUNCEY THOMAS on 12/20/181909 Hydrocodone Bit/Acetaminophen 1 Tab Tab, 1 EACH PO Q4-6HR PRN for PAIN-MODERATE Prescribed by: ROSS ANG on 01/01/192020 Hydrocodone/Acetaminophen 1 Each Tablet, 1 EACH PO Q4-6HR PRN for PAIN-MODERATE Prescribed by: LATOYA CHRISTIANSEN on 04/15/20 1626 Insulin Glargine,Hum.rec.anlog 100 Unit/1 Ml Insuln.pen, 24 UNITS SC HS, (Reported) Insulin Lispro 100 Unit/1 Ml Insuln.pen, 6 UNITS SQ AC, (Reported) Levofloxacin 250 Mg Tablet, 250 MG PO DAILY Prescribed by: CHAUNCEY THOMAS on 12/20/181909 Nifedipine 60 Mg Tab.er.24, 60 MG PO BID, (Reported) Phenazopyridine HCl 100 Mg Tablet, 100 MG PO TID Prescribed by: LATOYA CHRISTIANSEN on 02/25/191749 Pramipexole Di-HCl 0.25 Mg Tablet, 0.25 MG PO HS, (Reported) Vit W-Ca,Fe,FA(<1 mg) 1 Each Tablet, 1 TAB PO DAILY, (Reported) Patient Home Medication List Home Medication List Reviewed: Yes (LATOYA CHRISTIANSEN APRN) Review of Systems Musculoskeletal: see HPI, joint pain, joint swelling (LENKA FLETCHER MED STUDENT) Constitutional: see HPI EENTM: see HPI Respiratory: no symptoms reported Cardiovascular: no symptoms reported Genitourinary: no symptoms reported Skin: no symptoms reported Psychiatric/Neurological: No Symptoms Reported (LATOYA CHRISTIANSEN APRN) Past Tnmljnt-Befinp-Cgkpil Hx Patient Social History Alcohol Use: Denies Use Recreational Drug Use: Yes (CLEAN 3 YEARS) Drug of Choice: + IV DRUG USE, EXTENSIVE--METH. Smoking Status: Current Someday Smoker Type Used: Cigarettes Former Smoker, Quit: Oct 04, 2018 2nd Hand Smoke Exposure: Yes Recent Foreign Travel: No Contact w/Someone Who Travel: No Recent Infectious Disease Expo: No Recent Hopitalizations: Yes (03/2020) Physical Abuse: No Sexual Abuse: No Mistreated: No Fear: No (LENKA FLETCHER STUDENT) Immunizations Up To Date Tetanus Booster (TDap): Unknown PED Vaccines UTD: No Date of Influenza Vaccine: Jul 03, 2016 (LENKA FLETCHER STUDENT) Seasonal Allergies Seasonal Allergies: No (LEKNA FLETCHER) Past Medical History Surgeries: Yes (RIGHT 2ND/3RD TOES AMPUTATED DUE TO OSTEOMYELITIS) Amputation, Cardiac, Section, Orthopedic, Tubal Ligation Respiratory: Yes (TOBACCOISM) Pneumonia Cardiac: Yes Congenital Heart Disease, Hypertension Neurological: Yes (SEIZURES R/T DIABETES) Neuropathy, Seizure Disorder : No Reproductive Disorders: No Female 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 Sexually Transmitted Disease: No HIV/AIDS: No Genitourinary: Yes Bladder Infection, Renal Failure, Dialysis, UTI-Chronic Gastrointestinal: Yes (CELIAC DISEASE; HEPATITIS C--NO TREATMENT) Hepatitis Musculoskeletal: Yes (RIGH T2ND/3RD TOES AMPUTATED DUE TO OSTEOMYELITIS) Amputee, Fractures Endocrine: Yes (EXTENSIVE HX OF NON-COMPLIANCY IN ALL ASPECTS OF CARE) Diabetes, Insulin dep HEENT: No Loss of Vision: Bilateral Hearing Impairment: Denies Cancer: No Psychosocial: Yes (POLYSUBSTANCE ABUSE) Anxiety, Depression Integumentary: Yes (MRSA) Blood Disorders: Yes (HEP C+, ANEMIA) Adverse Reaction/Blood Tranf: No (LENKA FLETCHER) Family Medical History FH: COPD (chronic obstructive pulmonary disease) 19 FATHER FH: congestive heart failure 19 FATHER FH: liver cancer 19 MOTHER No Pertinent Family Hx (LENKA FLETCHER) Physical Exam Vital Signs Vital Signs - First Documented 04/15/20 15:25 Temp 37.0 Pulse 85 Resp 18 B/P (MAP) 148/95 (112) Pulse Ox 97 O2 Delivery Room Air (LATOYA CHRISTIANSEN APRN) Vital Signs Capillary Refill : Less Than 3 Seconds (LENKA FLETCHER STUDENT) Height, Weight, BMI Height: 5'7.00" Weight: 157lbs. 9.0oz. 71.793198um; 22.00 BMI Method:Stated General Appearance: WD/WN, no apparent distress Cardiovascular: normal peripheral pulses, regular rate, rhythm, no edema, no JVD, no murmur Respiratory: chest non-tender, lungs clear, normal breath sounds, no respiratory distress, no accessory muscle use Ankles: right ankle bone tenderness (tenderness to palpation of bilateral malleoli), right ankle limited range of motion, right ankle soft tissue tenderness, right ankle swelling (moderate), right ankle other (negative maisonnueve sign) Feet: right foot bone tenderness (tenderness to palpation of 5th metatarsal and navicular), right foot limited range of motion, right foot pain, right foot soft tissue tenderness Neurologic/Tendon: normal sensation, responds to pain, motor deficit (reduced ROM to L ankle and toes, may be due to swelling) Neurologic/Psychiatric: alert, normal mood/affect, oriented x 3 Skin: normal color, warm/dry (LENKA FLETCHER STUDENT) Progress/Results/Core Measures Results/Orders My Orders Orders - LATOYA CHRISTIANSEN APRN Ankle, Left, 3 Views (04/15/20 15:45) Hydrocodone/Apap 5/325 Tablet (Lortab 5 (04/15/20 15:45) Foot, Left, 3 Views (04/15/20 15:54) (LATOYA CHRISTIANSEN APRN) Medications Given in ED Current Medications Medications Dose Ordered Sig/Dipti Route Start Time Stop Time Status Last Admin Dose Admin Acetaminophen/ Hydrocodone Bitart 1 tab ONCE ONCE PO 04/15/20 15:45 04/15/20 15:46 DC 04/15/20 16:27 1 TAB (LATOYA CHRISTIANSEN APRN) Vital Signs/I&O 04/15/20 04/15/20 15:25 16:27 Temp 37.0 37.0 Pulse 85 Resp 18 B/P (MAP) 148/95 (112) Pulse Ox 97 O2 Delivery Room Air (LATOYA CHRISTIANSEN APRN) Blood Pressure Mean: 112 Progress Progress Note : Progress Note Hydrocodone 5/325 L ankle and foot xray 3 views (LENKA FLETCHER STUDENT) Departure Communication (Admissions) I have seen the patient as well, she has some bruising over the proximal great toe on the left, circumferential swelling around the ankle. We will put her in a walking boot. Have her follow-up with orthopedics. (LATOYA CHRISTIANSEN APRN) Impression Primary Impression: Fractured great toe Qualified Codes: S92.412A - Displaced fracture of proximal phalanx of left great toe, initial encounter for closed fracture Additional Impression: Fracture of distal fibula Disposition: HOME, SELF-CARE Condition: Stable Departure-Patient Inst. Decision time for Depature: 16:24 (LATOYA CHRISTIANSEN APRN) Referrals: [facility] (PCP/Family) Primary Care Physician PATRIA MCKEON MD, MICHAEL P MD Patient Instructions: Fibula Fracture (DC), Toe Injury (DC) Add. Discharge Instructions: 1. Wear the walking boot for the next 4-6 weeks until directed otherwise by orthopedics. Call orthopedic surgeon of your choosing for follow-up. Pain medication as directed. All discharge instructions reviewed with patient and/or family. Voiced understanding. Scripts Hydrocodone/Acetaminophen (Lorcet 5-325 mg Tablet) 1 Each Tablet 1 EACH PO Q4-6HR PRN for PAIN-MODERATE MDD 10 for 7 Days, #20 TAB Prov: LATOYA CHRISTIANSEN APRN 04/15/20 LENKA FLETCHER MED STUDENT Apr 15, 2020 15:46 LATOYA CHRISTIANSEN APRN Apr 15, 2020 16:27
--- NOTE | 2020-04-15 16:17 | Diagnostic Imaging Report ---
INDICATION: Ankle swelling status post injury. COMPARISON: 09/11/2019. FINDINGS: Three radiographic views of left ankle were obtained and demonstrate new acute oblique oriented fracture of the distal fibula. There is minimal displacement of the fracture fragments. Distal tibia is intact. Tibiotalar joint space is maintained. There is moderate soft tissue swelling. No unexpected radiopaque foreign bodies are seen. IMPRESSION: 1. Acute fracture of the distal left fibula. Dictated by: Dictated on workstation # [id number]
--- NOTE | 2020-04-15 16:23 | Diagnostic Imaging Report ---
INDICATION: Pain and swelling status post injury. COMPARISON: None. FINDINGS: Three radiographic views of the left foot were obtained. There is acute oblique oriented intra-articular fracture involving the proximal medial margins of the first proximal phalanx. There is no significant displacement of fracture fragments. Old fractures of the fourth and fifth metatarsals are noted. There is moderate osteoarthritic disease of the mid foot as well. No unexpected radiopaque foreign bodies are identified. IMPRESSION: 1. Acute fracture of the first proximal phalanx of the left foot. 2. Other nonemergent findings as described above. Dictated by: Dictated on workstation # [id number]
[2020-04-15] MEDS ORDERED: HYDR-3870 PO (16:26)
[2020-04-15 16:50] VITALS: BP 148/95
== END 2020-04-15 16:50 | disposition home or self-care (01) ==
LOC: EDUNIT# 15:12 → ER 15:13
DX: S92.412A Displaced fracture of proximal phalanx of left great toe, initial encounter for closed fracture (principal); S82.832A Other fracture of upper and lower end of left fibula, initial encounter for closed fracture; I10 Essential (primary) hypertension; E11.40 Type 2 diabetes mellitus with diabetic neuropathy, unspecified; G40.909 Epilepsy, unspecified, not intractable, without status epilepticus; F41.9 Anxiety disorder, unspecified; F32.9 Major depressive disorder, single episode, unspecified; D64.9 Anemia, unspecified; F17.210 Nicotine dependence, cigarettes, uncomplicated; Z88.8 Allergy status to other drugs, medicaments and biological substances; Z89.421 Acquired absence of other right toe(s); Z91.19 Patient's noncompliance with other medical treatment and regimen; Z79.82 Long term (current) use of aspirin; Z79.4 Long term (current) use of insulin; Z80.0 Family history of malignant neoplasm of digestive organs; Z82.49 Family history of ischemic heart disease and other diseases of the circulatory system; X50.1XXA Overexertion from prolonged static or awkward postures, initial encounter; W01.0XXA Fall on same level from slipping, tripping and stumbling without subsequent striking against object, initial encounter
CPT/HCPCS: 29505; 73610; 73630

== ENCOUNTER 2020-04-19 08:15 | Emergency (ER) | payer MEDICAID ==
[~2020-04-19] VITALS: Ht 170 cm; Wt 64.0 kg
[~2020-04-19 08:15] MED LIST changes: -HYDR-3812 PO
[2020-04-19] MEDS ORDERED: oxyCODONE/APAP 5/325MG (PERCOCET 5) TABLET PO ONE (08:45)
--- NOTE | 2020-04-19 08:56 | ED Lower Extremity ---
General Chief Complaint: Lower Extremity Stated Complaint: L ANKLE INJ Nursing Triage Note: PT TO ROOM 6 PER W/C PT HAD FX ON 04/15. PT STATES ROLLED FOOT IN WALKING BOOT ON THAT DAY P HOSP VISIT. PT STATES OUT OF PAIN MEDS AND LEG L LEG HURTS ALOT MORE RATES PAIN /10. PT HAS WALKING BOOT IN PLACE. PT LOWER EXT HAS SWELLING AND BRUISING NOTED. PT HAS DIALYSIS THREE TIMES A WEEK Nursing Sepsis Screen: No Definite Risk Source: patient, old records Exam Limitations: no limitations History of Present Illness Date Seen by Provider: Apr 19, 2020 Time Seen by Provider: 08:20 Initial Comments This 34-year-old woman with known left distal fibula fracture and left great toe fracture presents to the emergency room with complaints of increasing pain and swelling. Her injuries were initially assessed on April 15 and diagnosed with x-ray. She was placed in a walking boot. She has since fallen while wearing the boot and twisting her ankle again. She has not yet contacted an orthopedic provider. She had been prescribed hydrocodone which she is running out of. The left calf is now also painful and the left lower extremity below the knee is quite warm. Patient has type I diabetes and is on dialysis. Patient is also scheduled to have a vascular surgery at [facility] in the near future and had a screening COVID test this morning. Allergies and Home Medications Allergies Coded Allergies: gluten (Verified Allergy, Unknown, 12/20/18) Home Medications Acetaminophen 500 Mg Tablet, 500-1,000 MG PO Q6H PRN for PAIN-MILD, (Reported) Acetaminophen 325 Mg Tablet, 2 TAB PO Q6H PRN for PAIN-MILD Prescribed by: KASANDRA SANCHEZ on 10/01/18 0943 Aspirin 81 Mg Tablet.dr, 81 MG PO BID, (Reported) Buspirone HCl 30 Mg Tablet, 30 MG PO TID, (Reported) Clonidine HCl 0.2 Mg Tablet, 0.2 MG PO BID, (Reported) Cyclobenzaprine HCl 10 Mg Tablet, 10 MG PO TID PRN for MUSCLE SPASMS, (Reported) Ferrous Sulfate 325 Mg Tablet, 325 MG PO BID WITH MEALS Prescribed by: KASANDRA SANCHEZ on 10/01/18 0943 Furosemide 20 Mg Tablet, 20 MG PO DAILY, (Reported) Gabapentin 800 Mg Tablet, 800 MG PO QID, (Reported) Hydrocodone/Acetaminophen 1 Each Tablet, 1 EACH PO Q4-6HR PRN for PAIN-MODERATE Prescribed by: LATOYA CHRISTIANSEN on 04/15/20 1626 Hydrocodone/Acetaminophen 1 Each Tablet, 1-2 EACH PO Q6H PRN for PAIN-MODERATE (5-7) Prescribed by: CHAUNCEY THOMAS on 04/19/20 0943 Insulin Glargine,Hum.rec.anlog 100 Unit/1 Ml Insuln.pen, 24 UNITS SC HS, (Reported) Insulin Lispro 100 Unit/1 Ml Insuln.pen, 6 UNITS SQ AC, (Reported) Nifedipine 60 Mg Tab.er.24, 60 MG PO BID, (Reported) Pramipexole Di-HCl 0.25 Mg Tablet, 0.25 MG PO HS, (Reported) Vit W-Ca,Fe,FA(<1 mg) 1 Each Tablet, 1 TAB PO DAILY, (Reported) Patient Home Medication List Home Medication List Reviewed: Yes Review of Systems Constitutional: no symptoms reported EENTM: no symptoms reported Respiratory: no symptoms reported Cardiovascular: no symptoms reported Gastrointestinal: no symptoms reported Genitourinary: see HPI : No Musculoskeletal: see HPI Skin: no symptoms reported Psychiatric/Neurological: No Symptoms Reported Past [place]-Hsochw-Pfxggh Hx Past Med/Social Hx: Reviewed Nursing Past Med/Soc Hx Patient Social History Alcohol Use: Denies Use Recreational Drug Use: Yes Drug of Choice: + IV DRUG USE, EXTENSIVE--METH. Smoking Status: Current Everyday Smoker Type Used: Cigarettes Former Smoker, Quit: Oct 04, 2018 2nd Hand Smoke Exposure: Yes Recent Foreign Travel: No Contact w/Someone Who Travel: No Recent Infectious Disease Expo: No Recent Hopitalizations: Yes (03/2020) Physical Abuse: No Sexual Abuse: No Immunizations Up To Date Tetanus Booster (TDap): Unknown PED Vaccines UTD: No Date of Influenza Vaccine: Jul 03, 2016 Seasonal Allergies Seasonal Allergies: No Past Medical History Surgeries: Yes (RIGHT 2ND/3RD TOES AMPUTATED DUE TO OSTEOMYELITIS) Amputation, Cardiac, Section, Orthopedic, Tubal Ligation Respiratory: Yes (TOBACCOISM) Pneumonia Cardiac: Yes Congenital Heart Disease, Hypertension Neurological: Yes (SEIZURES R/T DIABETES) Neuropathy, Seizure Disorder Reproductive Disorders: No 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 Sexually Transmitted Disease: No HIV/AIDS: No Genitourinary: Yes Bladder Infection, Renal Failure, Dialysis, UTI-Chronic Gastrointestinal: Yes (CELIAC DISEASE; HEPATITIS C--NO TREATMENT) Hepatitis Musculoskeletal: Yes (RIGH T2ND/3RD TOES AMPUTATED DUE TO OSTEOMYELITIS, Charcot foot) Amputee, Fractures Endocrine: Yes (EXTENSIVE HX OF NON-COMPLIANCY IN ALL ASPECTS OF CARE) Diabetes, Insulin dep (Type 1) HEENT: No Loss of Vision: Bilateral Hearing Impairment: Denies Cancer: No Psychosocial: Yes (POLYSUBSTANCE ABUSE) Anxiety, Depression Integumentary: Yes (MRSA) Blood Disorders: Yes (HEP C+, ANEMIA) Adverse Reaction/Blood Tranf: No Family Medical History FH: COPD (chronic obstructive pulmonary disease) 19 FATHER FH: congestive heart failure 19 FATHER FH: liver cancer 19 MOTHER No Pertinent Family Hx Physical Exam Vital Signs Vital Signs - First Documented 04/19/20 08:15 Temp 36.8 Pulse 88 Resp 18 B/P (MAP) 169/97 (121) Pulse Ox 96 Capillary Refill : Less Than 3 Seconds Height, Weight, BMI Height: 5'7.00" Weight: 157lbs. 9.0oz. 71.596808mu; 22.00 BMI Method:Stated General Appearance: WD/WN, mild distress HEENT: normal ENT inspection Cardiovascular: regular rate, rhythm, no edema, no murmur Respiratory: lungs clear, normal breath sounds, no respiratory distress Legs: left leg bone tenderness, left leg ecchymosis, left leg limited range of motion, left leg pain, left leg swelling, left leg other (left calf tender and warm) Knees: left knee non-tender, left knee normal inspection, left knee normal range of motion, left knee no evidence of injury Ankles: left ankle bone tenderness, left ankle ecchymosis, left ankle limited range of motion, left ankle swelling Feet: left foot bone tenderness, left foot ecchymosis, left foot limited range of motion, left foot pain, left foot swelling, left foot other (sensation and capillary refill intact in the toes. Pedal pulses difficult to palpate due to edema) Neurologic/Psychiatric: director of first impressions II-XII nml as tested, no motor/sensory deficits, alert, normal mood/affect, oriented x 3 Skin: normal color, warm/dry, ecchymosis Progress/Results/Core Measures Results/Orders My Orders Orders - CHAUNCEY ALCANTARA MD Ankle, Left, 3 Views (04/19/20 08:26) Us Venous Lower Ext Lt (04/19/20 08:26) Oxycodone/Apap 5/325mg Tablet (Percocet (04/19/20 08:45) Medications Given in ED Current Medications Medications Dose Ordered Sig/Dipti Route Start Time Stop Time Status Last Admin Dose Admin Oxycodone/ Acetaminophen 1 tab ONCE ONCE PO 04/19/20 08:45 04/19/20 08:46 DC 04/19/20 08:45 1 TAB Vital Signs/I&O 04/19/20 04/19/20 08:15 09:45 Temp 36.8 Pulse 88 80 Resp 18 18 B/P (MAP) 169/97 (121) 152/88 (121) Pulse Ox 96 96 Blood Pressure Mean: 121 Progress Progress Note : Progress Note She was given Percocet to treat pain. X-ray was stable compared with prior. Ultrasound showed no evidence of DVT. See discharge instructions. Diagnostic Imaging Diagonstic Imaging: Ultrasound Plain Films/CT/US/NM/MRI: leg Comments Ultrasound discussed with the setup technician and report reviewed. See report below: NAME: HUONG ARANGO [facility] REC#: [id number] PT STATUS: REG ER : 1985 PHYSICIAN: CHAUNCEY ALCANTARA MD ADMIT DATE: 04/19/20/ER Signed Date of Exam:04/19/20 US VENOUS LOWER EXT LT PROCEDURE: US left lower extremity venous. TECHNIQUE: Multiple real-time grayscale images were obtained over the left lower extremity in various projections. Additional duplex Doppler and color Doppler images were also obtained. INDICATION: Left leg injury and pain EXAMINATION: Grayscale and color Doppler evaluation of the deep veins of the left lower extremity were performed with waveform analysis. FINDINGS: Continuous venous flow is present. No intraluminal filling defect is identified. There is normal compressibility and response to augmentation. No abnormal perivascular fluid collection is identified. IMPRESSION: No ultrasound evidence of left lower extremity deep venous thrombosis. Dictated by: Dictated on workstation # [id number] Dict: 04/19/2009 Trans: 04/19/2009 [id number] Interpreted by: JANNET MOODY MD Electronically signed by: JANNET MOODY MD 04/19/20 0909 Diagonstic Imaging: Xray Plain Films/CT/US/NM/MRI: ankle Comments Ankle x-ray viewed by me and report reviewed. See report below: NAME: HUONG ARANGO [facility] REC#: [id number] PT STATUS: REG ER : 1985 PHYSICIAN: CHAUNCEY ALCANTARA MD ADMIT DATE: 04/19/20/ER Draft Date of Exam:04/19/20 ANKLE, LEFT, 3 VIEWS EXAMINATION: Left ankle radiograph, 3 views. COMPARISON: None. HISTORY: 34-year-old female, left ankle pain. FINDINGS: There is an obliquely oriented mildly displaced fracture of the distal fibula extending upwards from the level of the tibial plafond. There is no change in fracture alignment. There is no pronounced interval periosteal reaction or bony callus bridging. The alignment of the ankle mortise is unremarkable. There is a normal variant os trigonum. There is midfoot arthritis. IMPRESSION: 1. Oblique mildly displaced distal fibular fracture extending upwards from the level of the tibial plafond with unchanged appearance since the comparison exam. 2. Unremarkable alignment of the ankle mortise. Dictated on workstation # [id number] Dict: 04/19/20908 Trans: 04/19/20911 [facility] [id number] Interpreted by: NIKKI KEANE MD Departure Impression Primary Impression: Ankle fracture, left Qualified Codes: S82.892D - Other fracture of left lower leg, subsequent encounter for closed fracture with routine healing Disposition: 01 HOME, SELF-CARE Condition: Improved Departure-Patient Inst. Decision time for Depature: 09:20 Referrals: [facility] (PCP/Family) Primary Care Physician PATRIA MCKEON MD, MICHAEL P MD Patient Instructions: Ankle Fracture (DC) Add. Discharge Instructions: Use your pain medication as prescribed. You may also wish to use a stool softener such as Colace to prevent constipation while on the pain medications. Follow-up with an orthopedic surgeon as soon as possible. A couple of local surgeons are listed below. Elevate your foot to the level of your heart as much as possible. You may ice in 20 minute intervals as well to reduce pain and swelling. Your x-ray was stable today and there was no evidence of blood clot on ultrasound. Return to care or call your doctor if you have any further problems or concerns. All discharge instructions reviewed with patient and/or family. Voiced understanding. Scripts Hydrocodone/Acetaminophen (Hydrocodone-Acetamin 5-325 mg) 1 Each Tablet 1-2 EACH PO Q6H PRN for PAIN-MODERATE (5-7), #20 TAB Prov: CHAUNCEY ALCANTARA MD 04/19/20 Copy Copies To 1: NANNETTE DIAS MD, JOSHUA T MD Apr 19, 2020 08:56
--- NOTE | 2020-04-19 09:11 | Diagnostic Imaging Report ---
PROCEDURE: US left lower extremity venous. TECHNIQUE: Multiple real-time grayscale images were obtained over the left lower extremity in various projections. Additional duplex Doppler and color Doppler images were also obtained. INDICATION: Left leg injury and pain EXAMINATION: Grayscale and color Doppler evaluation of the deep veins of the left lower extremity were performed with waveform analysis. FINDINGS: Continuous venous flow is present. No intraluminal filling defect is identified. There is normal compressibility and response to augmentation. No abnormal perivascular fluid collection is identified. IMPRESSION: No ultrasound evidence of left lower extremity deep venous thrombosis. Dictated by: Dictated on workstation # [id number]
--- NOTE | 2020-04-19 09:12 | Diagnostic Imaging Report ---
EXAMINATION: Left ankle radiograph, 3 views. COMPARISON: None. HISTORY: 34-year-old female, left ankle pain. FINDINGS: There is an obliquely oriented mildly displaced fracture of the distal fibula extending upwards from the level of the tibial plafond. There is no change in fracture alignment. There is no pronounced interval periosteal reaction or bony callus bridging. The alignment of the ankle mortise is unremarkable. There is a normal variant os trigonum. There is midfoot arthritis. IMPRESSION: 1. Oblique mildly displaced distal fibular fracture extending upwards from the level of the tibial plafond with unchanged appearance since the comparison exam. 2. Unremarkable alignment of the ankle mortise. Dictated by: Dictated on workstation # [id number]
[2020-04-19] MEDS ORDERED: HYDR-3812 PO (09:42)
[2020-04-19 09:45] VITALS: BP 152/88
== END 2020-04-19 09:49 | disposition home or self-care (01) ==
LOC: EDUNIT# 08:15 → ER 08:17
DX: S82.892D Other fracture of left lower leg, subsequent encounter for closed fracture with routine healing (principal); E10.40 Type 1 diabetes mellitus with diabetic neuropathy, unspecified; I10 Essential (primary) hypertension; F41.9 Anxiety disorder, unspecified; F32.9 Major depressive disorder, single episode, unspecified; G40.909 Epilepsy, unspecified, not intractable, without status epilepticus; F17.210 Nicotine dependence, cigarettes, uncomplicated; Z79.82 Long term (current) use of aspirin; Z79.4 Long term (current) use of insulin; Z80.0 Family history of malignant neoplasm of digestive organs; Z82.49 Family history of ischemic heart disease and other diseases of the circulatory system; Z99.2 Dependence on renal dialysis; Z89.421 Acquired absence of other right toe(s); Z88.8 Allergy status to other drugs, medicaments and biological substances; W19.XXXA Unspecified fall, initial encounter; X50.1XXA Overexertion from prolonged static or awkward postures, initial encounter
CPT/HCPCS: 73610

== ENCOUNTER → 2020-04-19 | Outpatient (CLI) | payer MEDICAID ==
[~2020-04-19] MED LIST changes: +HYDR-3812 PO; +HYDR-3870 PO
== END ==
LOC: LABNPT 06:43
PROVIDERS: ATTEND Specialist
DX: Z20.828 Contact with and (suspected) exposure to other viral communicable diseases (principal)
CPT/HCPCS: 87635

== ENCOUNTER 2020-05-16 11:41 | Emergency (ER) | payer MEDICAID ==
[~2020-05-16] VITALS: Ht 167.5 cm; Wt 63.5 kg
[2020-05-16] MEDS ORDERED: LACTATED RINGERS 1,000 ML IV ONE (11:53)
--- NOTE | 2020-05-16 12:03 | ED General ---
General Chief Complaint: Glucose Problems Stated Complaint: LOW BLOOD SUGAR Nursing Triage Note: PT BROUGHT IN BY [facility] WITH COMPLAINT OF LOW BLOOD SUGAR. FAMILY REPORTED THAT THEY WERE UNABLE TO WAKE PT UP THIS MORNING AND GAVE HER GLUCAGON. 17MINUTES AFTER, BS 79. PT HAS BEEN TAKING AMOXICILLIN FOR PNEUMONIA. STATES FEELS WEAK Nursing Sepsis Screen: No Definite Risk Source of Information: Patient Exam Limitations: No Limitations History of Present Illness Date Seen by Provider: May 16, 2020 Time Seen by Provider: 11:48 Initial Comments Here by EMS with report of altered level of consciousness. Apparently family tried to wake her up and couldn't. They believed her blood sugar was low and gave her a dose of glucagon. Her blood sugar came up to 79 after that and she became a little bit more responsive. EMS was summoned and found blood sugar 90. Patient is a known labile diabetic that is also on dialysis. She is currently on amoxicillin for possible pneumonia. She has not missed dialysis. Reports that she is cold currently but otherwise denies complaints. She is answering questions appropriately and is otherwise alert and oriented currently. Timing/Duration: 1 Hour Severity: Moderate Associated Systoms: No Chest Pain, No Cough; Fever/Chills; No Nausea/Vomiting, No Shortness of Air; Weakness Allergies and Home Medications Allergies Coded Allergies: gluten (Verified Allergy, Unknown, 12/20/18) Home Medications Acetaminophen 500 Mg Tablet, 500-1,000 MG PO Q6H PRN for PAIN-MILD, (Reported) Acetaminophen 325 Mg Tablet, 2 TAB PO Q6H PRN for PAIN-MILD Prescribed by: KASANDRA SANCHEZ on 10/01/18 09 Aspirin 81 Mg Tablet.dr, 81 MG PO BID, (Reported) Buspirone HCl 30 Mg Tablet, 30 MG PO TID, (Reported) Clonidine HCl 0.2 Mg Tablet, 0.2 MG PO BID, (Reported) Cyclobenzaprine HCl 10 Mg Tablet, 10 MG PO TID PRN for MUSCLE SPASMS, (Reported) Ferrous Sulfate 325 Mg Tablet, 325 MG PO BID WITH MEALS Prescribed by: KASANDRA SANCHEZ on 10/01/18 0943 Furosemide 20 Mg Tablet, 20 MG PO DAILY, (Reported) Gabapentin 800 Mg Tablet, 800 MG PO QID, (Reported) Hydrocodone/Acetaminophen 1 Each Tablet, 1 EACH PO Q4-6HR PRN for PAIN-MODERATE Prescribed by: LATOYA CHRISTIANSEN on 04/15/20 1626 Hydrocodone/Acetaminophen 1 Each Tablet, 1-2 EACH PO Q6H PRN for PAIN-MODERATE (5-7) Prescribed by: CHAUNCEY THOMAS on 04/19/20 0943 Insulin Glargine,Hum.rec.anlog 100 Unit/1 Ml Insuln.pen, 24 UNITS SC HS, (Reported) Insulin Lispro 100 Unit/1 Ml Insuln.pen, 6 UNITS SQ AC, (Reported) Nifedipine 60 Mg Tab.er.24, 60 MG PO BID, (Reported) Pramipexole Di-HCl 0.25 Mg Tablet, 0.25 MG PO HS, (Reported) Vit W-Ca,Fe,FA(<1 mg) 1 Each Tablet, 1 TAB PO DAILY, (Reported) Patient Home Medication List Home Medication List Reviewed: Yes Review of Systems Review of Systems Constitutional: see HPI, chills; No fever; weakness EENTM: No nose congestion, No throat pain Respiratory: No cough, No short of breath Cardiovascular: No chest pain, No edema Gastrointestinal: No abdominal pain, No nausea, No vomiting Genitourinary: no symptoms reported Musculoskeletal: no symptoms reported Skin: no symptoms reported Psychiatric/Neurological: See HPI All Other Systems Reviewed Negative Unless Noted: Yes Past Evmbixz-Fxsoef-Vrjdxb Hx Past Med/Social Hx: Reviewed Nursing Past Med/Soc Hx Patient Social History Alcohol Use: Denies Use Recreational Drug Use: Yes Drug of Choice: + IV DRUG USE, EXTENSIVE--METH. Smoking Status: Former Smoker Type Used: Cigarettes Former Smoker, Quit: Oct 04, 2018 2nd Hand Smoke Exposure: Yes Recent Foreign Travel: No Contact w/Someone Who Travel: No Recent Infectious Disease Expo: No Recent Hopitalizations: Yes (03/2020) Immunizations Up To Date Tetanus Booster (TDap): Unknown PED Vaccines UTD: No Date of Influenza Vaccine: Jul 03, 2016 Seasonal Allergies Seasonal Allergies: No Past Medical History Surgeries: Yes (RIGHT 2ND/3RD TOES AMPUTATED DUE TO OSTEOMYELITIS) Amputation, Cardiac, Section, Orthopedic, Tubal Ligation Respiratory: Yes (TOBACCOISM) Pneumonia Cardiac: Yes Congenital Heart Disease, Hypertension Neurological: Yes (SEIZURES R/T DIABETES) Neuropathy, Seizure Disorder Reproductive Disorders: No Female Reproductive Disorders: Denies [employer] History: Tubal Ligation Sexually Transmitted Disease: No HIV/AIDS: No Genitourinary: Yes Bladder Infection, Renal Failure, Dialysis, UTI-Chronic Gastrointestinal: Yes (CELIAC DISEASE; HEPATITIS C--NO TREATMENT) Hepatitis Musculoskeletal: Yes (RIGH T2ND/3RD TOES AMPUTATED DUE TO OSTEOMYELITIS, Charcot foot) Amputee, Fractures Endocrine: Yes (EXTENSIVE HX OF NON-COMPLIANCY IN ALL ASPECTS OF CARE) Diabetes, Insulin dep HEENT: No Loss of Vision: Bilateral Hearing Impairment: Denies Cancer: No Psychosocial: Yes (POLYSUBSTANCE ABUSE) Anxiety, Depression Integumentary: Yes (MRSA) Blood Disorders: Yes (HEP C+, ANEMIA) Adverse Reaction/Blood Tranf: No Family Medical History Reviewed Nursing Family Hx FH: COPD (chronic obstructive pulmonary disease) 19 FATHER FH: congestive heart failure 19 FATHER FH: liver cancer 19 MOTHER No Pertinent Family Hx Physical Exam Vital Signs Vital Signs - First Documented 05/16/20 11:42 Temp 35.0 Pulse 87 Resp 12 B/P (MAP) 124/97 (106) Pulse Ox 92 O2 Delivery Room Air Capillary Refill : Less Than 3 Seconds Height, Weight, BMI Height: 5'7.00" Weight: 157lbs. 9.0oz. 71.515742kd; 22.00 BMI Method:Stated General Appearance: No Apparent Distress, WD/WN HEENT: PERRL/EOMI, Pharynx Normal Neck: Non Tender, Supple Respiratory: Lungs Clear, Normal Breath Sounds Cardiovascular: Regular Rate, Rhythm, No Murmur Gastrointestinal: Non Tender, Soft Back: Normal Inspection, No CVA Tenderness, No Vertebral Tenderness Extremity: Normal Range of Motion, Non Tender Neurologic/Psychiatric: Alert, Oriented x3 Skin: Normal Color, Warm/Dry Focused Exam Lactate Level 05/16/20 12:17: Lactic Acid Level 0.81 Lactic Acid Level Laboratory Tests Test 05/16/20 12:17 Lactic Acid Level 0.81 MMOL/L (0.50-2.00) Progress/Results/Core Measures Suspected Sepsis Recent Fever Within 48 Hours: No Infection Criteria Present: None New/Unexplained Altered Menta: No Sepsis Screen: No Definite Risk SIRS Temperature: Pulse: 87 Respiratory Rate: 12 Laboratory Tests 05/16/20 12:17: White Blood Count 9.6 Blood Pressure 124 /97 Mean: 106 05/16/20 12:17: Lactic Acid Level 0.81 Laboratory Tests 05/16/20 12:17: Creatinine 4.54H, INR Comment 1.0, Platelet Count 232, Total Bilirubin 0.2 Results/Orders Lab Results Laboratory Tests Test 05/16/20 11:58 05/16/20 12:17 05/16/20 12:22 Range/Units Urine Color YELLOW Urine Clarity CLOUDY Urine pH 8.0 5-9 Urine Specific [place] 1.015 L 1.016-1.022 Urine Protein 3+ H NEGATIVE Urine Glucose (UA) NEGATIVE NEGATIVE Urine Ketones NEGATIVE NEGATIVE Urine Nitrite NEGATIVE NEGATIVE Urine Bilirubin NEGATIVE NEGATIVE Urine Urobilinogen 0.2 < = 1.0 MG/DL Urine Leukocyte Esterase 2+ H NEGATIVE Urine RBC (Auto) 2+ H NEGATIVE Urine RBC 5-10 H /HPF Urine WBC 50-100 H /HPF Urine Squamous Epithelial Cells 10-25 H /HPF Urine Crystals NONE /LPF Urine Bacteria FEW H /HPF Urine Casts NONE /LPF Urine Mucus NEGATIVE /LPF Urine Culture Indicated CULTURE PENDING White Blood Count 9.6 4.3-11.0 10^3/uL Red Blood Count 3.93 L 4.35-5.85 10^6/uL Hemoglobin 11.4 L 11.5-16.0 G/DL Hematocrit 36 35-52 % Mean Corpuscular Volume 92 80-99 FL Mean Corpuscular Hemoglobin 29 25-34 PG Mean Corpuscular Hemoglobin Concent 32 32-36 G/DL Red Cell Distribution Width 14.7 H 10.0-14.5 % Platelet Count 232 130-400 10^3/uL Mean Platelet Volume 11.4 H 7.4-10.4 FL Neutrophils (%) (Auto) 71 42-75 % Lymphocytes (%) (Auto) 16 12-44 % Monocytes (%) (Auto) 9 0-12 % Eosinophils (%) (Auto) 3 0-10 % Basophils (%) (Auto) 1 0-10 % Neutrophils # (Auto) 6.8 1.8-7.8 X 10^3 Lymphocytes # (Auto) 1.6 1.0-4.0 X 10^3 Monocytes # (Auto) 0.9 0.0-1.0 X 10^3 Eosinophils # (Auto) 0.3 0.0-0.3 10^3/uL Basophils # (Auto) 0.1 0.0-0.1 10^3/uL Prothrombin Time 14.0 12.2-14.7 SEC INR Comment 1.0 0.8-1.4 Activated Partial Thromboplast Time 31 24-35 SEC Sodium Level 135 135-145 MMOL/L Potassium Level 4.7 3.6-5.0 MMOL/L Chloride Level 100 98-107 MMOL/L Carbon Dioxide Level 23 21-32 MMOL/L Anion Gap 12 5-14 MMOL/L Blood Urea Nitrogen 23 H 7-18 MG/DL Creatinine 4.54 H 0.60-1.30 MG/DL Estimat Glomerular Filtration Rate 11 BUN/Creatinine Ratio 5 Glucose Level 270 H 70-105 MG/DL Lactic Acid Level 0.81 0.50-2.00 MMOL/L Calcium Level 8.0 L 8.5-10.1 MG/DL Corrected Calcium 8.2 L 8.5-10.1 MG/DL Total Bilirubin 0.2 0.1-1.0 MG/DL Aspartate Amino Transf (AST/SGOT) 23 5-34 U/L Alanine Aminotransferase (ALT/SGPT) 33 0-55 U/L Alkaline Phosphatase 266 H 40-136 U/L Total Protein 7.4 6.4-8.2 GM/DL Albumin 3.7 3.2-4.5 GM/DL Glucometer 277 H 70-110 MG/DL My Orders Orders - JEIMY GUADALUPE MD Cbc With Automated Diff (05/16/20 11:53) Comprehensive Metabolic Panel (05/16/20 11:53) Blood Culture (05/16/20 11:53) Sputum Culture (05/16/20 11:53) Urinalysis (05/16/20 11:53) Urine Culture (05/16/20 11:53) Protime With Inr (05/16/20 11:53) Partial Thromboplastin Time (05/16/20 11:53) Chest 1 View, Ap/Pa Only (05/16/20 11:53) Ed Iv/Invasive Line Start (05/16/20 11:53) Vital Signs Adult Sepsis Patie Q15M (05/16/20 11:53) O2 (05/16/20 11:53) Remove Rings In Anticipation O (05/16/20 11:53) Lactic Acid Analyzer (05/16/20 11:53) Lactated Ringers (Lr 1000 Ml Iv Solution (05/16/20 11:53) Ceftriaxone For Iv Use (Rocephin For I (05/16/20 13:39) Medications Given in ED Current Medications Medications Dose Ordered Sig/Dipti Route Start Time Stop Time Status Last Admin Dose Admin Lactated Ringer's 1,000 ml @ 0 mls/hr Q0M ONCE IV 05/16/20 11:53 05/16/20 11:55 DC 05/16/20 12:26 0 MLS/HR Vital Signs/I&O 05/16/20 11:42 Temp 35.0 Pulse 87 Resp 12 B/P (MAP) 124/97 (106) Pulse Ox 92 O2 Delivery Room Air Capillary Refill : Less Than 3 Seconds Blood Pressure Mean: 106 Progress Note : Progress Note Seen and evaluated. Patient is very hard IV stick and has shunt in her left arm. I was able to place 20-gauge Angiocath to the right antecubital space via ultrasound guidance. We did initiate sepsis protocol given her history of pneumonia. We will continue to monitor blood glucose. LR 500 mL bolus ordered. Monitor patient. 1350: Chest x-ray clear. UTI noted. Patient is currently on amoxicillin. We will give Rocephin 1 g IV. I will have her stop the amoxicillin. She did receive 1 L of fluid. We did discuss her fluid status. She is due for dialysis on Sunday and volume overload is not typically an issue with her that she will monitor her fluid intake. She does need outpatient antibiotics and we will initiate cephalexin 500 mg by mouth daily for 3 more days to start celina orrow. Discharged home with return precautions. Patient verbalize understanding instructions and agreement with plan. She states she is feeling much better. Diagnostic Imaging Diagonstic Imaging: Xray Plain Films/CT/US/NM/MRI: chest Comments [facility]. [place], [place] NAME: HUONG ARANGO [facility] REC#: [id number] PT STATUS: REG ER : 1985 PHYSICIAN: JEIMY GUADALUPE MD ADMIT DATE: 05/16/20/ER Draft Date of Exam:05/16/20 CHEST 1 VIEW, AP/PA ONLY EXAMINATION: Chest 1 view HISTORY: Sepsis COMPARISON: 03/15/2020 FINDINGS: The lungs are clear without edema or pneumonia. No pleural effusion or pneumothorax. Heart size is normal. Left internal jugular central venous catheter tip terminates in the superior vena cava. IMPRESSION: 1. Clear lungs. Dictated on workstation # [id number] Dict: 05/16/20 1234 Trans: 05/16/20 1237 [facility] [id number] Interpreted by: ALEX SIMMONS MD Electronically signed by: Departure Impression Primary Impression: UTI (urinary tract infection) Qualified Codes: N30.00 - Acute cystitis without hematuria Additional Impression: Hypoglycemia associated with diabetes Disposition: HOME, SELF-CARE Condition: Stable Departure-Patient Inst. Decision time for Depature: 13:55 Referrals: [facility] (PCP/Family) Primary Care Physician Patient Instructions: Urinary Tract Infections in Adults, Diabetes Type 1, Adult (DC) Add. Discharge Instructions: All discharge instructions reviewed with patient and/or family. Voiced understanding. Carefully monitor your blood sugars especially after the glucagon administration today. You do have a urinary tract infection but her lungs look clear on chest x-ray. You may stop the amoxicillin but take the other antibiotic as directed. Follow-up with your Dr. in a few days for recheck. Return for worse pain, fever, vomiting, weakness, breathing problems or other concerns as needed. Watch the amount of fluid that you take and as you did receive fluid in the emergency department so be careful not to take in too much fluid. Scripts Cephalexin (Cephalexin) 500 Mg Tablet 500 MG PO DAILY for 4 Days, #4 TAB 0 Refills Take after dialysis on dialysis days Prov: JEIMY GUADALUPE MD 05/16/20 JEIMY GUADALUPE MD May 16, 2020 12:03
[2020-05-16 12:04] LABS: BILIRUBIN,URINE NEGATIVE (NEGATIVE); CLARITY,URINE CLOUDY; COLOR,URINE YELLOW; GLUCOSE, URINE (UA) NEGATIVE (NEGATIVE); KETONES,URINE NEGATIVE (NEGATIVE); LEUKOCYTE ESTERASE ,URINE 2+ (NEGATIVE); NITRITE,URINE NEGATIVE (NEGATIVE); PROTEIN,URINE 3+ (NEGATIVE)
[2020-05-16 12:12] LABS: WBC,URINE 50-100 /HPF
[2020-05-16 12:13] LABS: BACTERIA,URINE FEW /HPF
[2020-05-16 12:27] LABS: BASOPHILS # (AUTO) 0.1 10^3/uL (0.0-0.1); BASOPHILS % (AUTO) 1 % (0-10); EOSINOPHILS # (AUTO) 0.3 10^3/uL (0.0-0.3); EOSINOPHILS % (AUTO) 3 % (0-10); HEMATOCRIT 36 % (35-52); HEMOGLOBIN 11.4 G/DL (11.5-16.0); LYMPHOCYTES # (AUTO) 1.6 X 10^3 (1.0-4.0); LYMPHOCYTES % (AUTO) 16 % (12-44); MEAN CORPUSCULAR HEMOGLOBIN 29 PG (25-34); MEAN CORPUSCULAR HGB CONC 32 G/DL (32-36); MEAN CORPUSCULAR VOLUME 92 FL (80-99); MEAN PLATELET VOLUME 11.4 FL (7.4-10.4); MONOCYTES # (AUTO) 0.9 X 10^3 (0.0-1.0); MONOCYTES % (AUTO) 9 % (0-12); NEUTROPHILS # (AUTO) 6.8 X 10^3 (1.8-7.8); NEUTROPHILS % (AUTO) 71 % (42-75); PLATELET COUNT 232 10^3/uL (130-400); WHITE BLOOD COUNT 9.6 10^3/uL (4.3-11.0)
--- NOTE | 2020-05-16 12:37 | Diagnostic Imaging Report ---
EXAMINATION: Chest 1 view HISTORY: Sepsis COMPARISON: 03/15/2020 FINDINGS: The lungs are clear without edema or pneumonia. No pleural effusion or pneumothorax. Heart size is normal. Left internal jugular central venous catheter tip terminates in the superior vena cava. IMPRESSION: 1. Clear lungs. Dictated by: Dictated on workstation # [id number]
[2020-05-16 12:38] LABS: ALBUMIN 3.7 GM/DL (3.2-4.5); POTASSIUM 4.7 MMOL/L (3.6-5.0)
[2020-05-16 12:40] LABS: TOTAL PROTEIN 7.4 GM/DL (6.4-8.2)
[2020-05-16 12:42] LABS: BILIRUBIN,TOTAL 0.2 MG/DL (0.1-1.0)
[2020-05-16 12:44] LABS: CREATININE SERUM 4.54 MG/DL (0.60-1.30)
[2020-05-16] MEDS ORDERED: cefTRIAXone FOR IV USE 1,000 MG in WATER (STERILE) FOR INJECTION 10 ML IV STA (13:39)
[2020-05-16] MEDS ORDERED: CEPH500T PO (14:05)
[2020-05-16 14:43] VITALS: BP 130/80
== END 2020-05-16 14:43 | disposition home or self-care (01) ==
LOC: EDUNIT# 11:41 → ER 11:42
DX: N39.0 Urinary tract infection, site not specified (principal); E11.649 Type 2 diabetes mellitus with hypoglycemia without coma; I13.0 Hypertensive heart and chronic kidney disease with heart failure and stage 1 through stage 4 chronic kidney disease, or unspecified chronic kidney disease; E11.22 Type 2 diabetes mellitus with diabetic chronic kidney disease; G40.909 Epilepsy, unspecified, not intractable, without status epilepticus; F41.9 Anxiety disorder, unspecified; N18.9 Chronic kidney disease, unspecified; Z79.4 Long term (current) use of insulin; Z99.2 Dependence on renal dialysis; Z91.018 Allergy to other foods; Z87.891 Personal history of nicotine dependence; Z82.49 Family history of ischemic heart disease and other diseases of the circulatory system; Z80.0 Family history of malignant neoplasm of digestive organs; Z79.82 Long term (current) use of aspirin
CPT/HCPCS: 36415; 71045; 80053; 81000; 82962; 83605; 85025; 85610; 85730; 87040; 87088

== ENCOUNTER 2020-07-09 05:32 | Outpatient (RCR) | payer MEDICAID ==
[~2020-07-09] VITALS: Ht 170 cm; Wt 63.6 kg
[~2020-07-09 05:32] MED LIST changes: +ASPI-999 PO; +BUSP10TA95 PO; +CARV6.252 PO; +CLN.2T PO; -CLON0.2T PO; +ESCI20TA PO; +FURO80TA3 PO; +GABA300C PO; +HYDR25CA PO; +LISI10TA2 PO; +TRAM50TA3 PO
== END 2020-07-09 11:59 | disposition home or self-care (01) ==
LOC: PREOP 05:32
PROVIDERS: ATTEND Surgery
DX: Z01.812 Encounter for preprocedural laboratory examination (principal); Z20.828 Contact with and (suspected) exposure to other viral communicable diseases
CPT/HCPCS: 87635

== ENCOUNTER 2020-07-12 10:10 | Day surgery (SDC) | payer MEDICAID ==
[2020-07-12] VITALS (8 sets, daily range): BP systolic 120–153; BP diastolic 1–92
[~2020-07-12] VITALS: Ht 170 cm; Wt 63.6 kg
[2020-07-12] MEDS ORDERED: LACTATED RINGERS 1,000 ML IV PRN (10:16)
[2020-07-12] MEDS ORDERED: ceFAZolin INJECTION 1,000 MG in WATER (STERILE) FOR INJECTION 10 ML IV ONE (10:30)
[2020-07-12] MEDS ORDERED: CATHETER FLUSH 10 ML SYR IV PRN (10:30)
[2020-07-12] MEDS ORDERED: LIDOCAINE/EPI 1%-1:100,000 (XYLOCAINE) 20ML ONE (11:44)
[2020-07-12] MEDS ORDERED: PROPOFOL INJECTION 50 ML IV ONE (11:46)
[2020-07-12] MEDS ORDERED: fentaNYL INJECTION 100 MCG/2 ML AMP ONE (11:47)
--- NOTE | 2020-07-12 11:47 | Progress Note-Pre Operative ---
Pre-Operative Progress Note H&P Reviewed The H&P was reviewed, patient examined and no changes noted. Date Seen by Provider: Jul 12, 2020 Time Seen by Provider: 11:46 Date H&P Reviewed: Jul 12, 2020 Time H&P Reviewed: 11:47 Pre-Operative Diagnosis: chronic kidney disease TIAGO PATINO DO Jul 12, 2020 11:47
[2020-07-12] MEDS ORDERED: LIDOCAINE PF 2% 5 ML (XYLOCAINE) VIAL ONE (12:28)
[2020-07-12] MEDS ORDERED: fentaNYL INJECTION 100 MCG/2 ML AMP IVP ONE (12:30)
[2020-07-12] MEDS ORDERED: ONDANSETRON 4 MG/2 ML (SDV) Z0FRAN IVP PRN (12:30)
[2020-07-12] MEDS ORDERED: NS IV 500 ML 500 ML IV STA (13:53)
--- NOTE | 2020-07-13 08:09 | Anesthesia-General Post-Op ---
MAC Patient Condition Mental Status/LOC: Same as Preop Cardiovascular: Satisfactory Nausea/Vomiting: Absent Respiratory: Satisfactory Pain: Controlled Complications: Absent Post Op Complications Complications None Follow Up Care/Instructions Patient Instructions None needed. Anesthesiology Discharge Order Discharge Order Patient is doing well, no complaints, stable vital signs, no apparent adverse anesthesia problems. No complications reported per nursing. TERRY BEJARANO CRNA Jul 13, 2020 08:09
--- NOTE | 2020-07-13 10:38 | OPERATIVE REPORT ---
DATE OF SERVICE: 07/12/2020 PREOPERATIVE DIAGNOSIS: Chronic kidney disease with need for dialysis. POSTOPERATIVE DIAGNOSIS: Chronic kidney disease with need for dialysis. PROCEDURE: Removal of left hemodialysis catheter. SURGEON: Tiago Quezada DO ANESTHESIA: MAC with local. ESTIMATED BLOOD LOSS: Minimal. COMPLICATIONS: None. INDICATIONS: The patient is a 35-year-old female on hemodialysis. She has a functioning fistula at this time. I have been asked to remove the hemodialysis catheter. She understands risks and benefits of procedure and wishes to proceed. Consent was signed in the chart. DESCRIPTION OF PROCEDURE: The patient was taken to the operating suite. She was prepped and draped in sterile fashion. Timeout was performed. Local anesthetic was infiltrated on the left chest around the hemodialysis catheter. The sutures were then cut. Hemostat was then used to dissect around the catheter until the cuff was able to be freed and the catheter was then able to be pulled. The pressure was held at the venous insertion point for 10 minutes until hemostasis was achieved. The area was then washed, and dried and sterile bandage was applied. The patient tolerated procedure well without any complications. She was taken to recovery room in stable condition. Job ID: [id number] DocumentID: [id number] Dictated Date: 07/13/2020 08:14:02 Ethical Hacker Date: 07/13/2020 10:37:34 Dictated By: TIAGO QUEZADA DO
== END 2020-07-12 13:40 | disposition home or self-care (01) ==
LOC: SDC 10:10
PROVIDERS: ATTEND Surgery
DX: N18.6 End stage renal disease (principal); Z91.018 Allergy to other foods; I10 Essential (primary) hypertension; F32.9 Major depressive disorder, single episode, unspecified; E11.40 Type 2 diabetes mellitus with diabetic neuropathy, unspecified; F17.210 Nicotine dependence, cigarettes, uncomplicated; M86.10 Other acute osteomyelitis, unspecified site; Z79.899 Other long term (current) drug therapy; Z99.2 Dependence on renal dialysis; Z82.3 Family history of stroke
CPT/HCPCS: 82962; 84703; 87081

== ENCOUNTER 2020-09-16 22:36 | Emergency (ER) | payer MEDICARE, MEDICAID ==
[~2020-09-16] VITALS: Ht 170 cm; Wt 63.5 kg
[~2020-09-16 22:36] MED LIST changes: -CLIN300C11 PO; +CLIN300C12 PO
[2020-09-16 22:58] LABS: BASOPHILS # (AUTO) 0.1 10^3/uL (0.0-0.1); BASOPHILS % (AUTO) 1 % (0-10); EOSINOPHILS # (AUTO) 0.6 10^3/uL (0.0-0.3); EOSINOPHILS % (AUTO) 9 % (0-10); HEMATOCRIT 30 % (35-52); HEMOGLOBIN 9.3 g/dL (11.5-16.0); LYMPHOCYTES # (AUTO) 2.7 10^3/uL (1.0-4.0); LYMPHOCYTES % (AUTO) 38 % (12-44); MEAN CORPUSCULAR HEMOGLOBIN 30 pg (25-34); MEAN CORPUSCULAR HGB CONC 32 g/dL (32-36); MEAN CORPUSCULAR VOLUME 96 fL (80-99); MEAN PLATELET VOLUME 11.5 fL (9.0-12.2); MONOCYTES # (AUTO) 0.8 10^3/uL (0.0-1.0); MONOCYTES % (AUTO) 11 % (0-12); NEUTROPHILS # (AUTO) 2.9 10^3/uL (1.8-7.8); NEUTROPHILS % (AUTO) 41 % (42-75); PLATELET COUNT 248 10^3/uL (130-400)
--- NOTE | 2020-09-16 22:59 | ED General ---
General Chief Complaint: Glucose Problems Stated Complaint: LOW BLOOD SUGAR Source of Information: Patient ([employer] MED STUDENT) History of Present Illness Date Seen by Provider: Sep 16, 2020 Time Seen by Provider: 22:50 Initial Comments This is a 35 y/o F who presents to the Emergency Department via EMS for a chief complaint of low blood sugars. She states she normally takes 14 units of insulin but accidentally took 28 units today. She's on Humalog, sliding scale, and Lantus, 14 units in the evening. Her first dose was around 7:30PM and her second dose was around 10:15PM. She gave herself a glucagon shot. 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 She feels shaky, nauseous, has a headache, and anxiety. She would like something to help with her anxiety. She was given 2 doses of Glucagon oral gel pills in the EMS. She denies previous occurrences of accidentally doubling her insulin. Her blood pressure in the ER is 198/109. PMHx: She is on dialysis for kidney failure. PSHx: 2x toe removal surgery, open heart surgery at , L arm fistula SocHx: smokes 10 cigarettes per day since 11 years old. no drinking, no recreational drugs (CLOVER GOODWIN MED STUDENT) Allergies and Home Medications Allergies Coded Allergies: gluten (Verified Allergy, Unknown, 07/08/20) Home Medications Aspirin 81 Mg Tab.chew, 81 MG PO DAILY, (Reported) Buspirone HCl 10 Mg Tablet, 10 MG PO TID, (Reported) Carvedilol 6.25 Mg Tablet, 6.25 MG PO BID, (Reported) Cyclobenzaprine HCl 10 Mg Tablet, 10 MG PO TID PRN for MUSCLE SPASMS, (Reported) Escitalopram Oxalate 20 Mg Tablet, 20 MG PO DAILY, (Reported) Furosemide 80 Mg Tablet, 80 MG PO BID, (Reported) Gabapentin 300 Mg Capsule, 300 MG PO TID, (Reported) Hydroxyzine Pamoate 25 Mg Capsule, 25 MG PO TID, (Reported) Insulin Glargine,Hum.rec.anlog 100 Unit/1 Ml Insuln.pen, 12 UNITS SC HS, (Reported) Insulin Lispro 100 Unit/1 Ml Insuln.pen, UNITS SQ AC, (Reported) SSI Lisinopril 10 Mg Tablet, 10 MG PO DAILY, (Reported) Nifedipine 60 Mg Tab.er.24, 60 MG PO BID, (Reported) Tramadol HCl 50 Mg Tablet, 50 MG PO TID, (Reported) Trazodone HCl 100 Mg Tablet, 100 MG PO HS, (Reported) Patient Home Medication List Home Medication List Reviewed: Yes (CHAUNCEY ALCANTARA MD) Review of Systems Review of Systems Constitutional: malaise EENTM: no symptoms reported; No blurred vision, No double vision Respiratory: no symptoms reported Cardiovascular: no symptoms reported; No palpitations Gastrointestinal: nausea Musculoskeletal: no symptoms reported Skin: no symptoms reported Psychiatric/Neurological: Anxiety, Headache, Tremors Hematologic/Lymphatic: No Symptoms Reported Immunological/Allergic: no symptoms reported (CLOVER GOODWIN STUDENT) Constitutional: No fever Genitourinary: no symptoms reported (CHAUNCEY ALCANTARA MD) Past Snkzcfn-Eovflo-Scagvz Hx Patient Social History Alcohol Use: Denies Use Drug of Choice: + IV DRUG USE, EXTENSIVE--METH. Smoking Status: Current Everyday Smoker (10 cigarettes per day since 11 years old) Type Used: Cigarettes Former Smoker, Quit: Oct 04, 2018 2nd Hand Smoke Exposure: Yes Recent Hopitalizations: Yes (03/2020) (CLOVER GOODWIN) Immunizations Up To Date Tetanus Booster (TDap): Unknown PED Vaccines UTD: No Date of Pneumonia Vaccine: Jun 07, 2020 Date of Influenza Vaccine: Jun 07, 2020 (CLOVER GOODWIN) Seasonal Allergies Seasonal Allergies: No (CLOVER GOODWIN) Past Medical History 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 Sexually Transmitted Disease: No HIV/AIDS: No Genitourinary: Yes Bladder Infection, Renal Failure, Dialysis, UTI-Chronic Gastrointestinal: Yes (CELIAC DISEASE; HEPATITIS C--NO TREATMENT) Hepatitis Musculoskeletal: Yes (RIGH T2ND/3RD TOES AMPUTATED DUE TO OSTEOMYELITIS, Charcot foot) Amputee, Fractures Endocrine: Yes (EXTENSIVE HX OF NON-COMPLIANCY IN ALL ASPECTS OF CARE) Diabetes, Insulin dep HEENT: No (GLASSES) Loss of Vision: Bilateral Hearing Impairment: Denies Cancer: No Psychosocial: Yes (POLYSUBSTANCE ABUSE) Anxiety, Depression Integumentary: Yes (MRSA) Blood Disorders: Yes (HEP C+, ANEMIA) Adverse Reaction/Blood Tranf: No (HAS HAD BLOOD WITH NO REACTION ) (CLOVER GOODWIN STUDENT) Family Medical History FH: COPD (chronic obstructive pulmonary disease) 19 FATHER FH: congestive heart failure 19 FATHER FH: liver cancer 19 MOTHER No Pertinent Family Hx (CLOVER GOODWIN STUDENT) Physical Exam Vital Signs Vital Signs - First Documented 09/16/20 09/17/20 22:40 03:22 Temp 36.8 Pulse 99 Resp 16 B/P (MAP) 190/99 (129) Pulse Ox 100 O2 Delivery Room Air (CHAUNCEY ALCANTARA MD) Vital Signs Capillary Refill : (CLOVER GOODWIN STUDENT) Height, Weight, BMI Height: 5'7.00" Weight: 157lbs. 9.0oz. [id number]; 22.00 BMI Method:Stated General Appearance: Anxious, Moderate Distress Respiratory: Chest Non Tender, Lungs Clear, Normal Breath Sounds, No Accessory Muscle Use, No Respiratory Distress Cardiovascular: Regular Rate, Rhythm Neurologic/Psychiatric: Alert, Oriented x3 Skin: Normal Color, Warm/Dry (CLOVER GOODWIN MED STUDENT) Progress/Results/Core Measures Suspected Sepsis SIRS Temperature: Pulse: Respiratory Rate: Laboratory Tests 09/16/20 22:43: White Blood Count 7.0 Blood Pressure / Mean: Laboratory Tests 09/16/20 22:43: Creatinine 3.92H, Platelet Count 248, Total Bilirubin 0.2 (CLOVER GOODWIN MED STUDENT) Results/Orders Lab Results Laboratory Tests Test 09/16/20 22:40 09/16/20 22:43 09/16/20 23:38 09/17/20 00:02 Range/Units Glucometer 98 266 H 308 H 70-110 MG/DL White Blood Count 7.0 4.3-11.0 10^3/uL Red Blood Count 3.08 L 3.80-5.11 10^6/uL Hemoglobin 9.3 L 11.5-16.0 g/dL Hematocrit 30 L 35-52 % Mean Corpuscular Volume 96 80-99 fL Mean Corpuscular Hemoglobin 30 25-34 pg Mean Corpuscular Hemoglobin Concent 32 32-36 g/dL Red Cell Distribution Width 13.9 10.0-14.5 % Platelet Count 248 130-400 10^3/uL Mean Platelet Volume 11.5 9.0-12.2 fL Immature Granulocyte % (Auto) 0 % Neutrophils (%) (Auto) 41 L 42-75 % Lymphocytes (%) (Auto) 38 12-44 % Monocytes (%) (Auto) 11 0-12 % Eosinophils (%) (Auto) 9 0-10 % Basophils (%) (Auto) 1 0-10 % Neutrophils # (Auto) 2.9 1.8-7.8 10^3/uL Lymphocytes # (Auto) 2.7 1.0-4.0 10^3/uL Monocytes # (Auto) 0.8 0.0-1.0 10^3/uL Eosinophils # (Auto) 0.6 H 0.0-0.3 10^3/uL Basophils # (Auto) 0.1 0.0-0.1 10^3/uL Immature Granulocyte # (Auto) 0.0 0.0-0.1 10^3/uL Sodium Level 139 135-145 MMOL/L Potassium Level 5.1 H 3.6-5.0 MMOL/L Chloride Level 96 L 98-107 MMOL/L Carbon Dioxide Level 29 21-32 MMOL/L Anion Gap 14 5-14 MMOL/L Blood Urea Nitrogen 22 H 7-18 MG/DL Creatinine 3.92 H 0.60-1.30 MG/DL Estimat Glomerular Filtration Rate 13 BUN/Creatinine Ratio 6 Glucose Level 120 H 70-105 MG/DL Calcium Level 8.1 L 8.5-10.1 MG/DL Corrected Calcium 8.1 L 8.5-10.1 MG/DL Total Bilirubin 0.2 0.1-1.0 MG/DL Aspartate Amino Transf (AST/SGOT) 21 5-34 U/L Alanine Aminotransferase (ALT/SGPT) 22 0-55 U/L Alkaline Phosphatase 117 40-136 U/L Total Protein 7.0 6.4-8.2 GM/DL Albumin 4.0 3.2-4.5 GM/DL Test 09/17/20 00:57 09/17/20 01:39 09/17/20 02:38 Range/Units Glucometer 435 *H 492 *H 482 *H 70-110 MG/DL (CHAUNCEY ALCANTARA MD) My Orders Orders - CHAUNCEY ALCANTARA MD Lorazepam Injection (Ativan Injection) (09/16/20 23:00) D5 1/2 Ns 1000 Ml Iv Solution (Dextrose (09/16/20 23:00) Cbc With Automated Diff (09/16/20 22:54) Comprehensive Metabolic Panel (09/16/20 22:54) Accucheck Stat ONCE (09/16/20 23:15) Accucheck Stat ONCE (09/16/20 23:15) Accucheck Stat ONCE (09/16/20 23:15) Accucheck Stat ONCE (09/16/20 23:15) General/Regular (09/16/20 Dinner) Lorazepam Tablet (Ativan Tablet) (09/17/20 01:00) Accucheck Stat ONCE (09/17/20 01:59) Accucheck Stat ONCE (09/17/20 01:59) Accucheck Stat ONCE (09/17/20 01:59) (CHAUNCEY ALCANTARA MD) Medications Given in ED Current Medications Medications Dose Ordered Sig/Dipti Route Start Time Stop Time Status Last Admin Dose Admin Lorazepam 1 mg ONCE ONCE IVP 09/16/20 23:00 09/16/20 23:01 DC 09/16/20 23:09 1 MG (CHAUNCEY ALCANTARA MD) Vital Signs/I&O 09/16/20 09/17/20 22:40 03:22 Temp 36.8 Pulse 99 86 Resp 16 20 B/P (MAP) 190/99 (129) 196/101 Pulse Ox 100 98 O2 Delivery Room Air (CHAUNCEY ALCANTARA MD) Vital Signs/I&O Capillary Refill : (CLOVER GOODWIN MED STUDENT) Point of Care Testing Finger Stick Blood Glucose: 98 Blood Glucose Action Taken: Reported to the NurseNayely (CLOVER GOODWIN MED STUDENT) Progress Note : Time: 22:50 Progress Note - She was administered 2 doses of glucagon in the ambulance. An IV line has been established with CBC and CMP drawn, results pending. A lorazepam injection was ordered. (CLOVER GOODWIN MED STUDENT) Progress Note #1: Progress Note Correction: Patient received a dose of glucagon at home, administered by self. She received 2 doses of glucose paste by EMS. Progress Note #2: Progress Note Blood sugar was monitored closely. It eventually plateaued. Patient was given 2 doses of Ativan for anxiety. She was discharged home with instructions to continue watching her blood sugar very closely. (CHAUNCEY ALCANTARA MD) Departure Impression Primary Impression: Accidental overdose Qualified Codes: T50.901A - Poisoning by unspecified drugs, medicaments and biological substances, accidental (unintentional), initial encounter Additional Impression: Hyperglycemia Disposition: 20 Condition: Improved Departure-Patient Inst. Decision time for Depature: 02:40 (CHAUNCEY ALCANTARA MD) [place] [facility] [place] Primary Care Physician Patient Instructions: Diabetes Type 1, Adult (DC) Add. Discharge Instructions: Monitor your blood sugars every 2 hours until this evening. Make a determination on dosing of your bedtime insulin based on the trends of your blood sugars throughout the day. If you have persistently high blood sugars thr oughout the day, you may administer your short acting insulin at a 50% reduced dose. Call with questions or concerns. Return to the emergency room if you have worsening symptoms. All discharge instructions reviewed with patient and/or family. Voiced und erstanding. Medical Student Attestation and Attending Note: I have personally interviewed and examined this patient along with Clover Goodwin. I have reviewed student documentation including history, physical, and assessments. I agree with the documentation except where otherwise noted. Exam: General: Alert, oriented, anxious, well developed HEENT: Normocephalic and atraumatic Heart: Regular rate and rhythm without murmur Lungs: Clear to auscultation bilaterally with normal effort Neuropsych: Alert, oriented, no focal deficits, anxious Skin: Warm and dry without rashes (CHAUNCEY ALCANTARA MD) Copy Copies To 1: KASANDRA SANCHEZ ELIZABETH X MED STUDENT Sep 16, 2020 22:59 CHAUNCEY ALCANTARA MD Sep 17, 2020 03:04
[2020-09-16] MEDS ORDERED: D5 1/2 NS 1000 ML IV SOLUTION 1,000 ML IV ONE (23:00)
[2020-09-16] MEDS ORDERED: LORazepam INJ 2 MG/ML (ATIVAN) VIAL IVP ONE (23:00)
[2020-09-16 23:09] LABS: BILIRUBIN,TOTAL 0.2 MG/DL (0.1-1.0); CREATININE SERUM 3.92 MG/DL (0.60-1.30); POTASSIUM 5.1 MMOL/L (3.6-5.0)
[2020-09-17] MEDS ORDERED: LORazepam 0.5 MG (ATIVAN) TABLET PO STA (01:00)
--- NOTE | 2020-09-17 01:53 | NUR ---
PATIENT IS ALERT AND ORIENTED AND INDEPENDENT IN ROOM. ABLE TO AMBULATE WITHOUT ASSISTANCE TO AND FROM BATHROOM. DENIES ADDITIONAL NEEDS AT THIS TIME.
[2020-09-17 02:07] LABS: CALCIUM 8.1 MG/DL (8.5-10.1)
[2020-09-17 03:22] VITALS: BP 196/101
== END 2020-09-17 03:22 | disposition home or self-care (01) ==
LOC: EDUNIT# 22:36 → ER 22:37
DX: T38.3X1A Poisoning by insulin and oral hypoglycemic [antidiabetic] drugs, accidental (unintentional), initial encounter (principal); E11.65 Type 2 diabetes mellitus with hyperglycemia; F32.9 Major depressive disorder, single episode, unspecified; F41.9 Anxiety disorder, unspecified; I10 Essential (primary) hypertension; G40.909 Epilepsy, unspecified, not intractable, without status epilepticus; F17.210 Nicotine dependence, cigarettes, uncomplicated; Z79.4 Long term (current) use of insulin; Z82.49 Family history of ischemic heart disease and other diseases of the circulatory system; Z80.0 Family history of malignant neoplasm of digestive organs; Z79.82 Long term (current) use of aspirin
CPT/HCPCS: 36415; 80053; 82962; 85025

== ENCOUNTER 2020-09-28 10:58 | Emergency (ER) | payer MEDICARE, MEDICAID ==
[~2020-09-28] VITALS: Ht 170 cm; Wt 63.5 kg
--- NOTE | 2020-09-28 11:14 | ED GI ---
General Stated Complaint: DIARRHEA History of Present Illness Date Seen by Provider: Sep 28, 2020 Time Seen by Provider: 11:09 Initial Comments 35-year-old female presents with diarrhea x4 days. Patient is a dialysis patient, she has had to have more frequent dialysis. She has got a cough, body aches generalized malaise. She denies fever or chills. Patient reports her "kidneys hurt" she does not have any nausea or vomiting. Allergies and Home Medications Allergies Coded Allergies: gluten (Verified Allergy, Unknown, 07/08/20) Home Medications Aspirin 81 Mg Tab.chew, 81 MG PO DAILY, (Reported) Buspirone HCl 10 Mg Tablet, 10 MG PO TID, (Reported) Carvedilol 6.25 Mg Tablet, 6.25 MG PO BID, (Reported) Cyclobenzaprine HCl 10 Mg Tablet, 10 MG PO TID PRN for MUSCLE SPASMS, (Reported) Escitalopram Oxalate 20 Mg Tablet, 20 MG PO DAILY, (Reported) Furosemide 80 Mg Tablet, 80 MG PO BID, (Reported) Gabapentin 300 Mg Capsule, 300 MG PO TID, (Reported) Hydroxyzine Pamoate 25 Mg Capsule, 25 MG PO TID, (Reported) Insulin Glargine,Hum.rec.anlog 100 Unit/1 Ml Insuln.pen, 12 UNITS SC HS, (Reported) Insulin Lispro 100 Unit/1 Ml Insuln.pen, UNITS SQ AC, (Reported) SSI Lisinopril 10 Mg Tablet, 10 MG PO DAILY, (Reported) Nifedipine 60 Mg Tab.er.24, 60 MG PO BID, (Reported) Tramadol HCl 50 Mg Tablet, 50 MG PO TID, (Reported) Trazodone HCl 100 Mg Tablet, 100 MG PO HS, (Reported) Patient Home Medication List Home Medication List Reviewed: Yes Review of Systems Review of Systems Constitutional: No chills, No fever; malaise Respiratory: Cough; Denies Shortness of Air Cardiovascular: Denies Chest Pain, Denies Irregular Heart Rate Gastrointestinal: Abdominal Pain, Diarrhea Genitourinary: Flank Pain Musculoskeletal: back pain Skin: no symptoms reported Psychiatric/Neurological: No Symptoms Reported Endocrine: No Symptoms Reported Hematologic/Lymphatic: No Symptoms Reported Past Anutltc-Ubnvfq-Rbtmbj Hx Past Med/Social Hx: Reviewed Nursing Past Med/Soc Hx Patient Social History Drug of Choice: + IV DRUG USE, EXTENSIVE--METH. Type Used: Cigarettes Former Smoker, Quit: Oct 04, 2018 2nd Hand Smoke Exposure: Yes Recent Hopitalizations: Yes (03/2020) Immunizations Up To Date Tetanus Booster (TDap): Less than 5yrs PED Vaccines UTD: No Date of Pneumonia Vaccine: Jun 07, 2020 Date of Influenza Vaccine: Jun 07, 2020 Seasonal Allergies Seasonal Allergies: No Past Medical History 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 Sexually Transmitted Disease: No HIV/AIDS: No Genitourinary: Yes Bladder Infection, Renal Failure, Dialysis, UTI-Chronic Gastrointestinal: Yes (CELIAC DISEASE; HEPATITIS C--NO TREATMENT) Hepatitis Musculoskeletal: Yes (RIGH T2ND/3RD TOES AMPUTATED DUE TO OSTEOMYELITIS, Charcot foot) Amputee, Fractures Endocrine: Yes (EXTENSIVE HX OF NON-COMPLIANCY IN ALL ASPECTS OF CARE) Diabetes, Insulin dep HEENT: No (GLASSES) Loss of Vision: Bilateral Hearing Impairment: Denies Cancer: No Psychosocial: Yes (POLYSUBSTANCE ABUSE) Anxiety, Depression Integumentary: Yes (MRSA) Blood Disorders: Yes (HEP C+, ANEMIA) Adverse Reaction/Blood Tranf: No (HAS HAD BLOOD WITH NO REACTION ) Family Medical History FH: COPD (chronic obstructive pulmonary disease) 19 FATHER FH: congestive heart failure 19 FATHER FH: liver cancer 19 MOTHER No Pertinent Family Hx Physical Exam Vital Signs Vital Signs - First Documented 09/28/20 11:08 Temp 36.9 Pulse 86 Resp 20 B/P (MAP) 124/77 (93) Pulse Ox 96 O2 Delivery Room Air Capillary Refill : Height/Weight/BMI Height: 5'7.00" Weight: 157lbs. 9.0oz. [id number]; 21.00 BMI Method:Stated General Appearance: thin, other (Chronically ill) HEENT: PERRL/EOMI Neck: full range of motion, supple Respiratory: lungs clear, normal breath sounds Cardiovascular: normal peripheral pulses, regular rate, rhythm Gastrointestinal: soft, tenderness (Mild diffuse) Extremities: non-tender, normal inspection Back: CVA tenderness (L) Neurologic/Psychiatric: alert, normal mood/affect, oriented x 3 Skin: normal color, warm/dry Progress/Results/Core Measures Results/Orders Lab Results Laboratory Tests Test 09/28/20 11:25 Range/Units White Blood Count 9.7 4.3-11.0 10^3/uL Red Blood Count 3.55 L 3.80-5.11 10^6/uL Hemoglobin 10.9 L 11.5-16.0 g/dL Hematocrit 33 L 35-52 % Mean Corpuscular Volume 94 80-99 fL Mean Corpuscular Hemoglobin 31 25-34 pg Mean Corpuscular Hemoglobin Concent 33 32-36 g/dL Red Cell Distribution Width 14.6 H 10.0-14.5 % Platelet Count 158 130-400 10^3/uL Mean Platelet Volume 12.2 9.0-12.2 fL Immature Granulocyte % (Auto) 0 % Neutrophils (%) (Auto) 73 42-75 % Lymphocytes (%) (Auto) 13 12-44 % Monocytes (%) (Auto) 9 0-12 % Eosinophils (%) (Auto) 4 0-10 % Basophils (%) (Auto) 1 0-10 % Neutrophils # (Auto) 7.1 1.8-7.8 10^3/uL Lymphocytes # (Auto) 1.2 1.0-4.0 10^3/uL Monocytes # (Auto) 0.9 0.0-1.0 10^3/uL Eosinophils # (Auto) 0.4 H 0.0-0.3 10^3/uL Basophils # (Auto) 0.1 0.0-0.1 10^3/uL Immature Granulocyte # (Auto) 0.0 0.0-0.1 10^3/uL Sodium Level 135 135-145 MMOL/L Potassium Level 4.2 3.6-5.0 MMOL/L Chloride Level 92 L 98-107 MMOL/L Carbon Dioxide Level 30 21-32 MMOL/L Anion Gap 13 5-14 MMOL/L Blood Urea Nitrogen 22 H 7-18 MG/DL Creatinine 4.21 H 0.60-1.30 MG/DL Estimat Glomerular Filtration Rate 12 BUN/Creatinine Ratio 5 Glucose Level 325 H 70-105 MG/DL Calcium Level 8.4 L 8.5-10.1 MG/DL Corrected Calcium 8.2 L 8.5-10.1 MG/DL Total Bilirubin 0.7 0.1-1.0 MG/DL Aspartate Amino Transf (AST/SGOT) 19 5-34 U/L Alanine Aminotransferase (ALT/SGPT) 22 0-55 U/L Alkaline Phosphatase 159 H 40-136 U/L C-Reactive Protein High Sensitivity 2.72 H 0.00-0.50 MG/DL Total Protein 8.0 6.4-8.2 GM/DL Albumin 4.3 3.2-4.5 GM/DL Coronavirus 2019 (CYNTHIA) Negative Negative Micro Results Microbiology 09/28/20 Influenza Types A,B Antigen (KRISTINA) - Final, Complete My Orders Orders - EDE ROBERTSONR Mack DO Cbc With Automated Diff (09/28/20 11:15) Comprehensive Metabolic Panel (09/28/20 11:15) Hs C Reactive Protein (09/28/20 11:15) Ua Culture If Indicated (09/28/20 11:15) Influenza A And B Antigens (09/28/20 11:15) Covid 19 Inhouse Test (09/28/20 11:15) Lactated Ringers (Lr 1000 Ml Iv Solution (09/28/20 11:15) Vital Signs/I&O 09/28/20 11:08 Temp 36.9 Pulse 86 Resp 20 B/P (MAP) 124/77 (93) Pulse Ox 96 O2 Delivery Room Air Progress Progress Note : Time: 12:20 Progress Note Patient is a dialysis patient and labs are consistent with dialysis. Patient's evaluation is negative for both influenza and Covid. Due to her chronic medical conditions I will treat her with Lomotil, Cipro and Flagyl. She should follow- up with her primary care provider if symptoms not improved in 3 to 4 days. Departure Impression Primary Impression: Colitis Additional Impression: ESRD on dialysis Disposition: 01 HOME, SELF-CARE Condition: Stable Departure-Patient Inst. Referrals: [facility] (PCP/Family) Primary Care Physician Patient Instructions: Colitis Scripts Metronidazole (Metronidazole) 500 Mg Tablet 500 MG PO BID, #14 TAB 0 Refills Prov: EDE ROBERTSONR L DO 09/28/20 Ciprofloxacin HCl (Ciprofloxacin HCl) 500 Mg Tablet 500 MG PO BID, #14 TAB Prov: SHARON ROBERTSONVOR L DO 09/28/20 Loperamide HCl (Anti-Diarrheal) 2 Mg Capsule 2 MG PO PRN PRN for DIARRHEA MDD 14 mg, #20 CAP Take 2 tablets after the first diarrheal stool then 1 tablet after each additional loose stool. May take up to 6 tablets daily Prov: CURT ROBERTSON DO 09/28/20 CURT ROBERTSON DO Sep 28, 2020 11:14
[2020-09-28] MEDS ORDERED: LACTATED RINGERS 1,000 ML IV STA (11:15)
[2020-09-28 11:29] LABS: BASOPHILS # (AUTO) 0.1 10^3/uL (0.0-0.1); BASOPHILS % (AUTO) 1 % (0-10); EOSINOPHILS # (AUTO) 0.4 10^3/uL (0.0-0.3); EOSINOPHILS % (AUTO) 4 % (0-10); HEMATOCRIT 33 % (35-52); HEMOGLOBIN 10.9 g/dL (11.5-16.0); LYMPHOCYTES # (AUTO) 1.2 10^3/uL (1.0-4.0); LYMPHOCYTES % (AUTO) 13 % (12-44); MEAN CORPUSCULAR HEMOGLOBIN 31 pg (25-34); MEAN CORPUSCULAR HGB CONC 33 g/dL (32-36); MEAN CORPUSCULAR VOLUME 94 fL (80-99); MEAN PLATELET VOLUME 12.2 fL (9.0-12.2); MONOCYTES # (AUTO) 0.9 10^3/uL (0.0-1.0); MONOCYTES % (AUTO) 9 % (0-12); NEUTROPHILS # (AUTO) 7.1 10^3/uL (1.8-7.8); NEUTROPHILS % (AUTO) 73 % (42-75); PLATELET COUNT 158 10^3/uL (130-400); WHITE BLOOD COUNT 9.7 10^3/uL (4.3-11.0)
[2020-09-28 11:38] LABS: ALBUMIN 4.3 GM/DL (3.2-4.5); POTASSIUM 4.2 MMOL/L (3.6-5.0)
[2020-09-28 11:39] LABS: CALCIUM 8.4 MG/DL (8.5-10.1)
[2020-09-28 11:42] LABS: BILIRUBIN,TOTAL 0.7 MG/DL (0.1-1.0)
[2020-09-28 11:44] LABS: CREATININE SERUM 4.21 MG/DL (0.60-1.30)
[2020-09-28] MEDS ORDERED: METR-145 PO (12:26)
[2020-09-28] MEDS ORDERED: CIPR500T4 PO (12:26)
[2020-09-28] MEDS ORDERED: LOPE2CAP14 PO (12:26)
[2020-09-28 12:30] VITALS: BP 122/74
== END 2020-09-28 12:30 | disposition home or self-care (01) ==
LOC: EDUNIT# 10:58 → ER 11:00
DX: K52.9 Noninfective gastroenteritis and colitis, unspecified (principal); E11.22 Type 2 diabetes mellitus with diabetic chronic kidney disease; I12.0 Hypertensive chronic kidney disease with stage 5 chronic kidney disease or end stage renal disease; N18.6 End stage renal disease; F41.9 Anxiety disorder, unspecified; F32.9 Major depressive disorder, single episode, unspecified; G40.909 Epilepsy, unspecified, not intractable, without status epilepticus; Z87.891 Personal history of nicotine dependence; Z82.49 Family history of ischemic heart disease and other diseases of the circulatory system; Z80.0 Family history of malignant neoplasm of digestive organs; Z20.822 Contact with and (suspected) exposure to COVID-19; Z79.4 Long term (current) use of insulin; Z79.82 Long term (current) use of aspirin
CPT/HCPCS: 80053; 85025; 86141; 87804; U0002; 36415; 87635

== ENCOUNTER 2020-12-11 07:44 | Emergency (ER) | payer MEDICARE, MEDICAID ==
[~2020-12-11] VITALS: Ht 170.2 cm; Wt 61.2 kg
[~2020-12-11 07:44] MED LIST changes: +CIPR500T5 PO; -LISI-556 PO; +LISI-729 PO; -LISI10TA2 PO; +LISI10TA25 PO; +LOPE2CAP14 PO; +METR-145 PO
[2020-12-11 08:07] LABS: BASOPHILS # (AUTO) 0.1 10^3/uL (0.0-0.1); BASOPHILS % (AUTO) 2 % (0-10); EOSINOPHILS # (AUTO) 0.5 10^3/uL (0.0-0.3); EOSINOPHILS % (AUTO) 9 % (0-10); HEMATOCRIT 36 % (35-52); HEMOGLOBIN 11.2 g/dL (11.5-16.0); LYMPHOCYTES # (AUTO) 2.3 10^3/uL (1.0-4.0); LYMPHOCYTES % (AUTO) 41 % (12-44); MEAN CORPUSCULAR HEMOGLOBIN 28 pg (25-34); MEAN CORPUSCULAR HGB CONC 31 g/dL (32-36); MEAN CORPUSCULAR VOLUME 91 fL (80-99); MEAN PLATELET VOLUME 11.9 fL (9.0-12.2); MONOCYTES # (AUTO) 0.6 10^3/uL (0.0-1.0); MONOCYTES % (AUTO) 11 % (0-12); NEUTROPHILS # (AUTO) 2.1 10^3/uL (1.8-7.8); NEUTROPHILS % (AUTO) 38 % (42-75); PLATELET COUNT 173 10^3/uL (130-400); WHITE BLOOD COUNT 5.6 10^3/uL (4.3-11.0)
[2020-12-11 08:18] LABS: ALBUMIN 3.4 GM/DL (3.2-4.5); POTASSIUM 5.1 MMOL/L (3.6-5.0)
--- NOTE | 2020-12-11 08:18 | ED General ---
General Chief Complaint: Glucose Problems Stated Complaint: HYPOGLYCEMIA Nursing Triage Note: PT BROUGHT IN BY [facility] FROM HOME WITH COMPLAINT OF LOW BLOODSUGAR. PT WAS FOUND UNRESPONSIVE AT HOME. FSBS WAS 21. PT WAS GIVEN 250ML D10. ON ARRIVAL, SUGAR READS "HI" ON ARRIVAL TO ER. PT IS ALERT AND ORIENTED. Nursing Sepsis Screen: No Definite Risk Source of Information: Patient Exam Limitations: No Limitations History of Present Illness Date Seen by Provider: Dec 11, 2020 Time Seen by Provider: 07:53 Initial Comments Here with report of being found unresponsive as diabetes and is a known brittle diabetic that is well-known to me. Patient had blood sugar of 21 per EMS. They did give D10 and her blood sugar went to the 200s. She has mentating better now and answering questions. Noted to be hypoxic on arrival with O2 sat in the upper 80s on room air. This is not normal for her. She does state that she has recently had cough and shortness of breath and feels like she may have pneumonia. She has not had the Covid vaccine. She denies contact with Covid 19. Reports taking her meds as directed. Denies vomiting or diarrhea. Complains of being cold and aching body. Timing/Duration: 12 Hours, Getting Worse Severity: Moderate, Severe Associated Systoms: Cough, Fever/Chills; No Nausea/Vomiting; Shortness of Air, Weakness Allergies and Home Medications Allergies Coded Allergies: gluten (Verified Allergy, Unknown, 07/08/20) Home Medications Aspirin 81 Mg Tab.chew, 81 MG PO DAILY, (Reported) Buspirone HCl 10 Mg Tablet, 10 MG PO TID, (Reported) Carvedilol 6.25 Mg Tablet, 6.25 MG PO BID, (Reported) Ciprofloxacin HCl 500 Mg Tablet, 500 MG PO BID Prescribed by: CURT ROBERTSON on 09/28/20 1226 Cyclobenzaprine HCl 10 Mg Tablet, 10 MG PO TID PRN for MUSCLE SPASMS, (Reported) Escitalopram Oxalate 20 Mg Tablet, 20 MG PO DAILY, (Reported) Furosemide 80 Mg Tablet, 80 MG PO BID, (Reported) Gabapentin 300 Mg Capsule, 300 MG PO TID, (Reported) Hydroxyzine Pamoate 25 Mg Capsule, 25 MG PO TID, (Reported) Insulin Glargine,Hum.rec.anlog 100 Unit/1 Ml Insuln.pen, 12 UNITS SC HS, (Reported) Insulin Lispro 100 Unit/1 Ml Insuln.pen, UNITS SQ AC, (Reported) SSI Lisinopril 10 Mg Tablet, 10 MG PO DAILY, (Reported) Loperamide HCl 2 Mg Capsule, 2 MG PO PRN PRN for DIARRHEA Take 2 tablets after the first diarrheal stool then 1 tablet after each additional loose stool. May take up to 6 tablets daily Prescribed by: CURT ROBERTSON on 09/28/20 1226 Metronidazole 500 Mg Tablet, 500 MG PO BID Prescribed by: CURT ROBERTSON on 09/28/20 1226 Nifedipine 60 Mg Tab.er.24, 60 MG PO BID, (Reported) Tramadol HCl 50 Mg Tablet, 50 MG PO TID, (Reported) Trazodone HCl 100 Mg Tablet, 100 MG PO HS, (Reported) Patient Home Medication List Home Medication List Reviewed: Yes Review of Systems Review of Systems Constitutional: see HPI, chills; No fever; weakness EENTM: No nose congestion, No throat pain Respiratory: cough, short of breath Cardiovascular: No chest pain, No edema Gastrointestinal: No abdominal pain, No nausea, No vomiting Genitourinary: No dysuria, No frequency : No Musculoskeletal: muscle pain, muscle weakness Skin: No change in color, No lesions All Other Systems Reviewed Negative Unless Noted: Yes Past Zrbapto-Quhnym-Siykvm Hx Patient Social History Alcohol Use: Denies Use Drug of Choice: Hx meth Smoking Status: Former Smoker Type Used: Cigarettes Former Smoker, Quit: Oct 04, 2018 2nd Hand Smoke Exposure: Yes Recent Infectious Disease Expo: No Recent Hopitalizations: Yes (03/2020) Immunizations Up To Date Tetanus Booster (TDap): Less than 5yrs PED Vaccines UTD: No Date of Pneumonia Vaccine: Jun 07, 2020 Date of Influenza Vaccine: Jun 07, 2020 Seasonal Allergies Seasonal Allergies: No Past Medical History 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 Sexually Transmitted Disease: No HIV/AIDS: No Genitourinary: Yes Bladder Infection, Renal Failure, Dialysis, UTI-Chronic Gastrointestinal: Yes (CELIAC DISEASE; HEPATITIS C--NO TREATMENT) Hepatitis Musculoskeletal: Yes (RIGH T2ND/3RD TOES AMPUTATED DUE TO OSTEOMYELITIS, Charcot foot) Amputee, Fractures Endocrine: Yes Diabetes, Insulin dep HEENT: No (GLASSES) Loss of Vision: Bilateral Hearing Impairment: Denies Cancer: No Psychosocial: Yes Anxiety, Depression Integumentary: Yes (MRSA) Blood Disorders: Yes (HEP C+, ANEMIA) Adverse Reaction/Blood Tranf: No (HAS HAD BLOOD WITH NO REACTION ) Family Medical History FH: COPD (chronic obstructive pulmonary disease) 19 FATHER FH: congestive heart failure 19 FATHER FH: liver cancer 19 MOTHER No Pertinent Family Hx Physical Exam-Suspected Sepsis Physical Exam Vital Signs Vital Signs - First Documented 12/11/20 12/11/20 07:45 07:50 Temp 35.0 Pulse 68 Resp 17 B/P (MAP) 147/90 (109) O2 Delivery Room Air O2 Flow Rate 2.00 Capillary Refill : Less Than 3 Seconds Blood Pressure Mean: 109 Height, Weight, BMI Height: 5'7.00" Weight: 157lbs. 9.0oz. 71.157590fi; 21.00 BMI Method:Stated General Appearance: WD/WN HEENT: PERRL/EOMI, Pharynx Normal Neck: Non Tender, Supple Respiratory: Lungs Clear, Normal Breath Sounds Cardiovascular: Regular Rate, Rhythm, No Murmur Gastrointestinal: Non Tender, Soft Extremity: Normal Range of Motion, Non Tender Neurologic/Psychiatric: Alert, Oriented x3, Other (Follows commands. Answers questions appropriately but does appear drowsy.) Skin: normal color, warm/dry Focused Exam Lactate Level 12/11/20 07:54: Lactic Acid Level 0.58 Lactic Acid Level Progress/Results/Core Measures Suspected Sepsis Recent Fever Within 48 Hours: No Infection Criteria Present: None New/Unexplained Altered Menta: No Sepsis Screen: No Definite Risk SIRS Temperature: Pulse: 68 Respiratory Rate: 17 Laboratory Tests 12/11/20 07:54: White Blood Count 5.6 Blood Pressure 147 /90 Mean: 109 12/11/20 07:54: Lactic Acid Level 0.58 Laboratory Tests 12/11/20 07:54: Creatinine 6.57H, INR Comment 1.1, Platelet Count 173, Total Bilirubin 0.4 Results/Orders Lab Results Laboratory Tests Test 12/11/20 07:54 12/11/20 11:10 12/11/20 12:52 Range/Units White Blood Count 5.6 4.3-11.0 10^3/uL Red Blood Count 4.00 3.80-5.11 10^6/uL Hemoglobin 11.2 L 11.5-16.0 g/dL Hematocrit 36 35-52 % Mean Corpuscular Volume 91 80-99 fL Mean Corpuscular Hemoglobin 28 25-34 pg Mean Corpuscular Hemoglobin Concent 31 L 32-36 g/dL Red Cell Distribution Width 13.5 10.0-14.5 % Platelet Count 173 130-400 10^3/uL Mean Platelet Volume 11.9 9.0-12.2 fL Immature Granulocyte % (Auto) 0 % Neutrophils (%) (Auto) 38 L 42-75 % Lymphocytes (%) (Auto) 41 12-44 % Monocytes (%) (Auto) 11 0-12 % Eosinophils (%) (Auto) 9 0-10 % Basophils (%) (Auto) 2 0-10 % Neutrophils # (Auto) 2.1 1.8-7.8 10^3/uL Lymphocytes # (Auto) 2.3 1.0-4.0 10^3/uL Monocytes # (Auto) 0.6 0.0-1.0 10^3/uL Eosinophils # (Auto) 0.5 H 0.0-0.3 10^3/uL Basophils # (Auto) 0.1 0.0-0.1 10^3/uL Immature Granulocyte # (Auto) 0.0 0.0-0.1 10^3/uL Prothrombin Time 14.6 12.2-14.7 SEC INR Comment 1.1 0.8-1.4 Activated Partial Thromboplast Time 28 24-35 SEC D-Dimer 0.70 H 0.00-0.49 UG/ML Sodium Level 137 135-145 MMOL/L Potassium Level 5.1 H 3.6-5.0 MMOL/L Chloride Level 94 L 98-107 MMOL/L Carbon Dioxide Level 24 21-32 MMOL/L Anion Gap 19 H 5-14 MMOL/L Blood Urea Nitrogen 36 H 7-18 MG/DL Creatinine 6.57 H 0.60-1.30 MG/DL Estimat Glomerular Filtration Rate 7 BUN/Creatinine Ratio 5 Glucose Level 129 H 70-105 MG/DL Glucometer > 600 *H 139 H 70-110 MG/DL Lactic Acid Level 0.58 0.50-2.00 MMOL/L Calcium Level 7.3 L 8.5-10.1 MG/DL Corrected Calcium 7.8 L 8.5-10.1 MG/DL Total Bilirubin 0.4 0.1-1.0 MG/DL Aspartate Amino Transf (AST/SGOT) 15 5-34 U/L Alanine Aminotransferase (ALT/SGPT) 18 0-55 U/L Alkaline Phosphatase 119 40-136 U/L C-Reactive Protein High Sensitivity 1.22 H 0.00-0.50 MG/DL B-Type Natriuretic Peptide 644.6 H <100.0 PG/ML Total Protein 6.6 6.4-8.2 GM/DL Albumin 3.4 3.2-4.5 GM/DL Procalcitonin 0.22 H <0.10 NG/ML Coronavirus 2019 (CYNTHIA) Negative Negative Urine Color YELLOW Urine Clarity CLEAR Urine pH 8.0 5-9 Urine Specific [place] 1.020 1.016-1.022 Urine Protein 3+ H NEGATIVE Urine Glucose (UA) 1+ H NEGATIVE Urine Ketones NEGATIVE NEGATIVE Urine Nitrite NEGATIVE NEGATIVE Urine Bilirubin NEGATIVE NEGATIVE Urine Urobilinogen 0.2 < = 1.0 MG/DL Urine Leukocyte Esterase NEGATIVE NEGATIVE Urine RBC (Auto) NEGATIVE NEGATIVE Urine RBC NONE /HPF Urine WBC 5-10 H /HPF Urine Squamous Epithelial Cells 10-25 H /HPF Urine Renal Epithelial Cells 2-5 /HPF Urine Crystals NONE /LPF Urine Bacteria NEGATIVE /HPF Urine Casts NONE /LPF Urine Mucus NEGATIVE /LPF Urine Culture Indicated CULTURE PENDING Micro Results Microbiology 12/11/20 Influenza Types A,B Antigen (KRISTINA) - Final, Complete My Orders Orders - JEIMY GUADALUPE MD Cbc With Automated Diff (12/11/20 07:56) Comprehensive Metabolic Panel (12/11/20 07:56) Blood Culture (12/11/20 07:56) Sputum Culture (12/11/20 07:56) Urinalysis (12/11/20 07:56) Urine Culture (12/11/20 07:56) Protime With Inr (12/11/20 07:56) Partial Thromboplastin Time (12/11/20 07:56) Chest 1 View, Ap/Pa Only (12/11/20 07:56) Ed Iv/Invasive Line Start (12/11/20 07:56) Vital Signs Adult Sepsis Patie Q15M (12/11/20 07:56) O2 (12/11/20 07:56) Remove Rings In Anticipation O (12/11/20 07:56) Lactic Acid Analyzer (12/11/20 07:56) Influenza A And B Antigens (12/11/20 07:56) Fibrin Degradation Products (12/11/20 07:56) Procalcitonin (Pct) (12/11/20 07:56) Hs C Reactive Protein (12/11/20 07:56) Covid 19 Inhouse Test (12/11/20 07:56) BNP (12/11/20 09:52) General/Regular (12/11/20 Lunch) Vital Signs/I&O 12/11/20 12/11/20 07:45 07:50 Temp 35.0 Pulse 68 Resp 17 B/P (MAP) 147/90 (109) O2 Delivery Room Air Nasal Cannula O2 Flow Rate 2.00 Capillary Refill : Less Than 3 Seconds Blood Pressure Mean: 109 Progress Note : Progress Note Seen and evaluated. Sepsis protocol initiated. Monitor patient. 1325: We have been monitoring the patient throughout the stay. She is actually doing much better currently. Blood sugars in the 130s. Initially she did require oxygen to maintain her oxygen saturations when she was quite drowsy. That has improved significantly. We did discuss with her the need for dialysis as it does appear that she has some additional fluid on her lungs and she was requiring oxygen. We did trial her off oxygen she is maintaining O2 sats in mid 90s. She would really like to go home. Dialysis can get her in on Sunday and she would like to try to do that. She will be able to stay with a friend who can monitor her as well and I have spoken with the patient and her friend. We have discussed my schedule and return precautions and patient is comfortable going home. She states overall she feels much better currently. She is currently arranging for dialysis for Sunday morning. We will make sure that she eats without difficulty and if does, then we will send home with return precautions. Monitor patient. 1358: Tolerated meals well. Discharged home with return precautions. Patient verbalized understanding instructions and agreement with plan. Diagnostic Imaging Diagonstic Imaging: Xray Plain Films/CT/US/NM/MRI: chest Comments [facility], [place] NAME: HUONG [facility]AN[facility] REC#: [id number] PT STATUS: REG ER : 1985 PHYSICIAN: JEIMY GUADALUPE MD ADMIT DATE: 12/11/20/ER Draft Date of Exam:12/11/20 CHEST 1 VIEW, AP/PA ONLY EXAM: CHEST 1 VIEW, AP/PA ONLY INDICATION: Cough. Congestion. Hypoglycemia. COMPARISON: Chest radiograph 05/16/2021. FINDINGS: Normal heart size and central pulmonary vascularity. Low lung volumes. Bronchial wall thickening consistent with small airway inflammation. Low lung volumes with patchy airspace opacities in the right lower lobe and left upper lobe. No pleural effusion or pneumothorax. No acute osseous findings. IMPRESSION: 1. Low lung volumes with mild patchy airspace opacities in the right lower lobe, left upper lobe representing early pneumonitis versus atelectasis. 2. Bronchial wall thickening consistent with small airway inflammation. Dictated on workstation # [id number] Dict: 12/11/20817 Trans: 12/11/20 0822 [facility] [id number] Interpreted by: OSKAR GALAN MD Electronically signed by: Departure Impression Primary Impression: Hypoglycemia associated with diabetes Additional Impression: End stage renal disease on dialysis due to type 1 diabetes mellitus Disposition: 01 HOME, SELF-CARE Condition: Stable Departure-Patient Inst. Decision time for Depature: 13:27 Referrals: [facility] [place] ([place]/Family) Primary Care Physician Patient Instructions: Diabetes Type 1, Adult (DC), End Stage Kidney Disease (DC) Add. Discharge Instructions: All discharge instructions reviewed with patient and/or family. Voiced understanding. Carefully monitor and control your blood sugars. Minimize fluid intake until you receive dialysis on Sunday. Keep that appointment as scheduled. If you have any increased breathing problems, weakness or problems with your blood sugars, please return to the emergency department immediately. Return for chest pain, vomiting, weakness or other concerns as needed. Continue home medications as previously prescribed. JEIMY GUADALUPE MD Dec 11, 2020 08:18
[2020-12-11 08:19] LABS: CALCIUM 7.3 MG/DL (8.5-10.1)
[2020-12-11 08:20] LABS: TOTAL PROTEIN 6.6 GM/DL (6.4-8.2)
[2020-12-11 08:22] LABS: BILIRUBIN,TOTAL 0.4 MG/DL (0.1-1.0)
--- NOTE | 2020-12-11 08:23 | Diagnostic Imaging Report ---
EXAM: CHEST 1 VIEW, AP/PA ONLY INDICATION: Cough. Congestion. Hypoglycemia. COMPARISON: Chest radiograph 05/16/2021. FINDINGS: Normal heart size and central pulmonary vascularity. Low lung volumes. Bronchial wall thickening consistent with small airway inflammation. Low lung volumes with patchy airspace opacities in the right lower lobe and left upper lobe. No pleural effusion or pneumothorax. No acute osseous findings. IMPRESSION: 1. Low lung volumes with mild patchy airspace opacities in the right lower lobe, left upper lobe representing early pneumonitis versus atelectasis. 2. Bronchial wall thickening consistent with small airway inflammation. Dictated by: Dictated on workstation # [id number]
[2020-12-11 08:24] LABS: CREATININE SERUM 6.57 MG/DL (0.60-1.30)
[2020-12-11 08:30] LABS: FIBRIN DEGRADATION PRODUCTS 0.7 UG/ML (0.00-0.49); INR 1.1 (0.8-1.4); PROTHROMBIN TIME PATIENT 14.6 SEC (12.2-14.7)
[2020-12-11 11:18] LABS: BILIRUBIN,URINE NEGATIVE (NEGATIVE); CLARITY,URINE CLEAR; COLOR,URINE YELLOW; GLUCOSE, URINE (UA) 1+ (NEGATIVE); KETONES,URINE NEGATIVE (NEGATIVE); LEUKOCYTE ESTERASE ,URINE NEGATIVE (NEGATIVE); NITRITE,URINE NEGATIVE (NEGATIVE); PROTEIN,URINE 3+ (NEGATIVE)
[2020-12-11 11:31] LABS: BACTERIA,URINE NEGATIVE /HPF
[2020-12-11 14:03] VITALS: BP 137/97
== END 2020-12-11 14:03 | disposition home or self-care (01) ==
LOC: EDUNIT# 07:44 → ER 07:47
DX: E10.649 Type 1 diabetes mellitus with hypoglycemia without coma (principal); E10.22 Type 1 diabetes mellitus with diabetic chronic kidney disease; I12.9 Hypertensive chronic kidney disease with stage 1 through stage 4 chronic kidney disease, or unspecified chronic kidney disease; N18.6 End stage renal disease; E10.40 Type 1 diabetes mellitus with diabetic neuropathy, unspecified; F41.9 Anxiety disorder, unspecified; F32.9 Major depressive disorder, single episode, unspecified; G40.909 Epilepsy, unspecified, not intractable, without status epilepticus; Z99.2 Dependence on renal dialysis; Z20.822 Contact with and (suspected) exposure to COVID-19; Z87.891 Personal history of nicotine dependence; Z77.22 Contact with and (suspected) exposure to environmental tobacco smoke (acute) (chronic); Z89.421 Acquired absence of other right toe(s); Z87.81 Personal history of (healed) traumatic fracture; Z79.82 Long term (current) use of aspirin
CPT/HCPCS: 71045; 80053; 81000; 82962; 83605; 83880; 84145; 85025; 85379; 85610; 85730; 86141; 87040; 87088; 87804; 99284; U0002; 36415; 87635

== ENCOUNTER 2021-02-23 07:48 | Emergency (ER) | payer MEDICARE, MEDICAID ==
[~2021-02-23] VITALS: Ht 170 cm; Wt 60.0 kg
[~2021-02-23 07:48] MED LIST changes: -OMEP40CA27 PO; +OMEP40CA6 PO; -VANC1VIA IV; +VANC1VIA35 IV
[2021-02-23 08:55] LABS: BASOPHILS # (AUTO) 0.1 10^3/uL (0.0-0.1); BASOPHILS % (AUTO) 1 % (0-10); EOSINOPHILS # (AUTO) 0.2 10^3/uL (0.0-0.3); EOSINOPHILS % (AUTO) 3 % (0-10); HEMATOCRIT 35 % (35-52); HEMOGLOBIN 11.4 g/dL (11.5-16.0); LYMPHOCYTES # (AUTO) 3.1 10^3/uL (1.0-4.0); LYMPHOCYTES % (AUTO) 38 % (12-44); MEAN CORPUSCULAR HEMOGLOBIN 30 pg (25-34); MEAN CORPUSCULAR HGB CONC 33 g/dL (32-36); MEAN CORPUSCULAR VOLUME 92 fL (80-99); MEAN PLATELET VOLUME 11.9 fL (9.0-12.2); MONOCYTES # (AUTO) 0.9 10^3/uL (0.0-1.0); MONOCYTES % (AUTO) 10 % (0-12); NEUTROPHILS # (AUTO) 3.8 10^3/uL (1.8-7.8); NEUTROPHILS % (AUTO) 47 % (42-75); PLATELET COUNT 219 10^3/uL (130-400); WHITE BLOOD COUNT 8.2 10^3/uL (4.3-11.0)
[2021-02-23] MEDS ORDERED: ACETAMINOPHEN 500 MG TAB (TYLENOL) PO ONE (09:00)
[2021-02-23 09:05] LABS: ALBUMIN 4.2 GM/DL (3.2-4.5); POTASSIUM 5.2 MMOL/L (3.6-5.0)
[2021-02-23 09:06] LABS: CALCIUM 9.3 MG/DL (8.5-10.1)
[2021-02-23 09:07] LABS: TOTAL PROTEIN 7.8 GM/DL (6.4-8.2)
[2021-02-23 09:09] LABS: BILIRUBIN,TOTAL 0.6 MG/DL (0.1-1.0)
[2021-02-23 09:11] LABS: CREATININE SERUM 6.24 MG/DL (0.60-1.30)
--- NOTE | 2021-02-23 09:40 | ED Cough/URI ---
General Chief Complaint: Cough/Cold/Flu Symptoms Stated Complaint: BODY ACHES, COUGHING UP MUCUS,FEVER Nursing Triage Note: AMB TO ROOM REPORTS IS DIALYSIS PATIENT. HAD DIALYSIS YESTERDAY THEY TOOK 10LBS OF FLUID OFF FEELS LIKE CRAP TODAY WITH BACK PAIN AND COUGH REPORTS THAT SHE USUALLY HAS PNEUMONIA WHEN SHE FEELS LIKE THIS. Sepsis Screen: No Definite Risk Source: patient Exam Limitations: no limitations History of Present Illness Date Seen by Provider: Feb 23, 2021 Time Seen by Provider: 08:00 Initial Comments Patient presents ER by private conveyance from home with chief complaint that since yesterday she is having some cough productive of sputum and malaise. No fever but she is had some subjective chills and subjective fever. She says they took 10 pounds off at dialysis yesterday, (Sunday, , Sunday dialysis secondary to type 1 diabetes.) She continues to cough and feel poor and says in the past this is been from pneumonia. Her blood sugars have been under decent control. She follows with [facility] her primary care. She is not having any chest pain nausea dysuria or diarrhea. She has not been on steroids recently. She denies any recent sick contacts. She denies a COVID-19 vaccine. Allergies and Home Medications Allergies Coded Allergies: gluten (Verified Allergy, Unknown, 07/08/20) Home Medications Aspirin 81 Mg Tab.chew, 81 MG PO DAILY, (Reported) Buspirone HCl 10 Mg Tablet, 10 MG PO TID, (Reported) Carvedilol 6.25 Mg Tablet, 6.25 MG PO BID, (Reported) Ciprofloxacin HCl 500 Mg Tablet, 500 MG PO BID Prescribed by: CURT ROBERTSON on 09/28/20 1226 Cyclobenzaprine HCl 10 Mg Tablet, 10 MG PO TID PRN for MUSCLE SPASMS, (Reported) Escitalopram Oxalate 20 Mg Tablet, 20 MG PO DAILY, (Reported) Furosemide 80 Mg Tablet, 80 MG PO BID, (Reported) Gabapentin 300 Mg Capsule, 300 MG PO TID, (Reported) Hydroxyzine Pamoate 25 Mg Capsule, 25 MG PO TID, (Reported) Insulin Glargine,Hum.rec.anlog 100 Unit/1 Ml Insuln.pen, 12 UNITS SC HS, (Reported) Insulin Lispro 100 Unit/1 Ml Insuln.pen, UNITS SQ AC, (Reported) SSI Lisinopril 10 Mg Tablet, 10 MG PO DAILY, (Reported) Loperamide HCl 2 Mg Capsule, 2 MG PO PRN PRN for DIARRHEA Take 2 tablets after the first diarrheal stool then 1 tablet after each additional loose stool. May take up to 6 tablets daily Prescribed by: CURT ROBERTSON on 09/28/20 1226 Metronidazole 500 Mg Tablet, 500 MG PO BID Prescribed by: CURT ROBERTSON on 09/28/20 1226 Nifedipine 60 Mg Tab.er.24, 60 MG PO BID, (Reported) Tramadol HCl 50 Mg Tablet, 50 MG PO TID, (Reported) Trazodone HCl 100 Mg Tablet, 100 MG PO HS, (Reported) Patient Home Medication List Home Medication List Reviewed: Yes Review of Systems Review of Systems Constitutional: chills; No diaphoresis; fever (Subjective), malaise, weakness EENTM: No ear discharge, No ear pain Respiratory: cough, phlegm, short of breath; No wheezing Cardiovascular: No chest pain, No edema Gastrointestinal: No abdominal pain, No constipation, No diarrhea, No nausea, No vomiting Genitourinary: No discharge, No dysuria Musculoskeletal: No back pain, No joint pain All Other Systems Reviewed Negative Unless Noted: Yes Past Regzldg-Yffzfp-Cwtana Hx Patient Social History Alcohol Use: Denies Use Drug of Choice: Hx meth Type Used: Cigarettes, Electronic/Vapor Former Smoker, Quit: Oct 04, 2018 2nd Hand Smoke Exposure: Yes Recent Infectious Disease Expo: No Recent Hopitalizations: Yes (03/2020) Immunizations Up To Date Tetanus Booster (TDap): Less than 5yrs PED Vaccines UTD: No Date of Pneumonia Vaccine: Jun 07, 2020 Date of Influenza Vaccine: Jun 07, 2020 Seasonal Allergies Seasonal Allergies: No Past Medical History 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 Sexually Transmitted Disease: No HIV/AIDS: No Genitourinary: Yes Bladder Infection, Renal Failure, Dialysis, UTI-Chronic Gastrointestinal: Yes (CELIAC DISEASE; HEPATITIS C--NO TREATMENT) Hepatitis Musculoskeletal: Yes (RIGH T2ND/3RD TOES AMPUTATED DUE TO OSTEOMYELITIS, Charcot foot) Amputee, Fractures Endocrine: Yes Diabetes, Insulin dep HEENT: No (GLASSES) Loss of Vision: Bilateral Hearing Impairment: Denies Cancer: No Psychosocial: Yes Anxiety, Depression Integumentary: Yes (MRSA) Blood Disorders: Yes (HEP C+, ANEMIA) Adverse Reaction/Blood Tranf: No (HAS HAD BLOOD WITH NO REACTION ) Family Medical History FH: COPD (chronic obstructive pulmonary disease) 19 FATHER FH: congestive heart failure 19 FATHER FH: liver cancer 19 MOTHER No Pertinent Family Hx Physical Exam Vital Signs - First Documented 02/23/21 07:59 Temp 36.9 Pulse 70 Resp 18 B/P (MAP) 162/95 (117) Pulse Ox 97 O2 Delivery Room Air Capillary Refill : Less Than 3 Seconds Height: 5'7.00" Weight: 157lbs. 9.0oz. 71.807673ph; 20.00 BMI Method:Stated General Appearance: mild distress, thin Eyes: Bilateral Eye Normal Inspection, Bilateral Eye PERRL, Bilateral Eye EOMI HEENT: PERRL/EOMI, pharynx normal Neck: full range of motion, normal inspection Respiratory: lungs clear, normal breath sounds, no respiratory distress, no accessory muscle use, other (Productive cough) Cardiovascular: normal peripheral pulses, regular rate, rhythm Gastrointestinal: normal bowel sounds, non tender Neurologic/Psychiatric: alert, normal mood/affect, oriented x 3 Skin: normal color, warm/dry Progress/Results/Core Measures Suspected Sepsis Recent Fever Within 48 Hours: No Infection Criteria Present: None New/Unexplained Altered Menta: No Sepsis Screen: No Definite Risk SIRS Temperature: Pulse: 70 Respiratory Rate: 18 Laboratory Tests 02/23/21 08:47: White Blood Count 8.2 Blood Pressure 162 /95 Mean: 117 Laboratory Tests 02/23/21 08:47: Creatinine 6.24H, Platelet Count 219, Total Bilirubin 0.6 Results/Orders Lab Results Laboratory Tests Test 02/23/21 08:01 02/23/21 08:47 Range/Units Influenza Type A (RT-PCR) Not Detected Not Detecte Influenza Type B (RT-PCR) Not Detected Not Detecte SARS-CoV-2 RNA (RT-PCR) Not Detected Not Detecte White Blood Count 8.2 4.3-11.0 10^3/uL Red Blood Count 3.77 L 3.80-5.11 10^6/uL Hemoglobin 11.4 L 11.5-16.0 g/dL Hematocrit 35 35-52 % Mean Corpuscular Volume 92 80-99 fL Mean Corpuscular Hemoglobin 30 25-34 pg Mean Corpuscular Hemoglobin Concent 33 32-36 g/dL Red Cell Distribution Width 14.0 10.0-14.5 % Platelet Count 219 130-400 10^3/uL Mean Platelet Volume 11.9 9.0-12.2 fL Immature Granulocyte % (Auto) 0 % Neutrophils (%) (Auto) 47 42-75 % Lymphocytes (%) (Auto) 38 12-44 % Monocytes (%) (Auto) 10 0-12 % Eosinophils (%) (Auto) 3 0-10 % Basophils (%) (Auto) 1 0-10 % Neutrophils # (Auto) 3.8 1.8-7.8 10^3/uL Lymphocytes # (Auto) 3.1 1.0-4.0 10^3/uL Monocytes # (Auto) 0.9 0.0-1.0 10^3/uL Eosinophils # (Auto) 0.2 0.0-0.3 10^3/uL Basophils # (Auto) 0.1 0.0-0.1 10^3/uL Immature Granulocyte # (Auto) 0.0 0.0-0.1 10^3/uL Sodium Level 138 135-145 MMOL/L Potassium Level 5.2 H 3.6-5.0 MMOL/L Chloride Level 94 L 98-107 MMOL/L Carbon Dioxide Level 25 21-32 MMOL/L Anion Gap 19 H 5-14 MMOL/L Blood Urea Nitrogen 51 H 7-18 MG/DL Creatinine 6.24 H 0.60-1.30 MG/DL Estimat Glomerular Filtration Rate 8 BUN/Creatinine Ratio 8 Glucose Level 122 H 70-105 MG/DL Calcium Level 9.3 8.5-10.1 MG/DL Corrected Calcium 9.1 8.5-10.1 MG/DL Total Bilirubin 0.6 0.1-1.0 MG/DL Aspartate Amino Transf (AST/SGOT) 15 5-34 U/L Alanine Aminotransferase (ALT/SGPT) 29 0-55 U/L Alkaline Phosphatase 139 H 40-136 U/L C-Reactive Protein High Sensitivity 0.73 H 0.00-0.50 MG/DL Total Protein 7.8 6.4-8.2 GM/DL Albumin 4.2 3.2-4.5 GM/DL Procalcitonin 0.30 H <0.10 NG/ML My Orders Orders - OLAMIDE LOZADA Covid 19 Inhouse Test (02/23/21 08:18) Influenza A And B By Pcr (02/23/21 08:18) Cbc With Automated Diff (02/23/21 08:18) Comprehensive Metabolic Panel (02/23/21 08:18) Hs C Reactive Protein (02/23/21 08:18) Procalcitonin (Pct) (02/23/21 08:18) Chest 1 View, Ap/Pa Only (02/23/21 08:18) Sputum Culture (02/23/21 08:50) Acetaminophen Tablet (Tylenol Tablet) (02/23/21 09:00) General/Regular (02/23/21 Breakfast) Medications Given in ED Current Medications Medications Dose Ordered Sig/Dipti Route Start Time Stop Time Status Last Admin Dose Admin Acetaminophen 1,000 mg ONCE ONCE PO 02/23/21 09:00 02/23/21 09:01 DC 02/23/21 09:14 1,000 MG Vital Signs/I&O 02/23/21 07:59 Temp 36.9 Pulse 70 Resp 18 B/P (MAP) 162/95 (117) Pulse Ox 97 O2 Delivery Room Air Capillary Refill : Less Than 3 Seconds Blood Pressure Mean: 117 Progress Note : Time: 09:48 Progress Note Aseptic vital signs. Chest x-ray and labs. Patient sugar started to drop so a meal tray was ordered and two cups of orange juice and granola are provided for her. Diagnostic Imaging Diagonstic Imaging: Xray Plain Films/CT/US/NM/MRI: chest Comments NAME: HUONG ARANGO [facility] REC#: [id number] PT STATUS: REG ER : 1985 PHYSICIAN: OLAMIDE LOZADA MD ADMIT DATE: 02/23/21/ER Signed Date of Exam:02/23/21 CHEST 1 VIEW, AP/PA ONLY EXAMINATION: Chest 1 view HISTORY: Cough. Shortness of breath. COMPARISON: 12/11/2020. FINDINGS: There is cardiomegaly. Linear opacities are seen in the right midlung. No focal consolidation. No pleural effusion or pneumothorax. No acute osseous abnormalities. IMPRESSION: 1. Linear opacities in the right midlung favored to represent atelectasis. 2. Cardiomegaly. No overt pulmonary edema. Dictated by: Dictated on workstation # [id number] Dict: 02/23/21 0944 Trans: 02/23/21 1016 [facility] [id number] Interpreted by: DUKE WALKER DO Electronically signed by: DUKE WALKER DO 02/23/21 1016 Reviewed: Reviewed by Me Departure Impression Primary Impression: Pneumonia Qualified Codes: J18.9 - Pneumonia, unspecified organism Disposition: 01 HOME, SELF-CARE Condition: Stable Departure-Patient Inst. Decision time for Depature: 11:28 [facility]: [facility] ([place]) Primary Care Physician Patient Instructions: Pneumonia, Adult (DC) Add. Discharge Instructions: Cefdinir once a day after dialysis. Take this on dialysis day only. Azithromycin 1 tablet daily for the next 4 days. You will not need to start the antibiotics until tomorrow morning after dialysis. Return to the ER if you are having worsening shortness of air or other worrisome symptoms. Follow-up with your primary care doctor in the next week to manage your symptoms. All discharge instructions reviewed with patient and/or family. Voiced understanding. Scripts Azithromycin (Azithromycin) 250 Mg Tablet 250 MG PO DAILY, #4 TAB 0 Refills Prov: OLAMIDE LOZADA 02/23/21 Cefdinir (Cefdinir) 300 Mg Capsule 300 MG PO after dialysis for 10 Days, #5 CAP 0 Refills Prov: OLAMIDE LOZADA 02/23/21 OLAMIDE LOZADA Feb 23, 2021 09:40
--- NOTE | 2021-02-23 09:47 | Diagnostic Imaging Report ---
EXAMINATION: Chest 1 view HISTORY: Cough. Shortness of breath. COMPARISON: 12/11/2020. FINDINGS: There is cardiomegaly. Linear opacities are seen in the right midlung. No focal consolidation. No pleural effusion or pneumothorax. No acute osseous abnormalities. IMPRESSION: 1. Linear opacities in the right midlung favored to represent atelectasis. 2. Cardiomegaly. No overt pulmonary edema. Dictated by: Dictated on workstation # [id number]
[2021-02-23] MEDS ORDERED: CEFD300C3 PO (11:32)
[2021-02-23] MEDS ORDERED: AZIT250T12 PO (11:32)
[2021-02-23] MEDS ORDERED: AZITHROMYCIN 250 MG TAB (ZITHROMAX) PO ONE (11:45)
[2021-02-23] MEDS ORDERED: cefTRIAXone 1,000 MG in WATER (STERILE) FOR INJECTION 10 ML IV ONE (11:45)
[2021-02-23 11:51] VITALS: BP 166/90
== END 2021-02-23 11:50 | disposition home or self-care (01) ==
LOC: EDUNIT# 07:48 → ER 07:51
DX: J18.9 Pneumonia, unspecified organism (principal); I10 Essential (primary) hypertension; G40.909 Epilepsy, unspecified, not intractable, without status epilepticus; F32.9 Major depressive disorder, single episode, unspecified; F41.9 Anxiety disorder, unspecified; E11.9 Type 2 diabetes mellitus without complications; Z87.891 Personal history of nicotine dependence; Z79.82 Long term (current) use of aspirin; Z20.822 Contact with and (suspected) exposure to COVID-19; Z79.899 Other long term (current) drug therapy; Z79.4 Long term (current) use of insulin
CPT/HCPCS: 36415; 71045; 80053; 84145; 85025; 86141; 87070; 87205; 87636

== ENCOUNTER 2021-05-17 16:53 | Emergency (ER) | payer MEDICARE, MEDICAID ==
[~2021-05-17] VITALS: Ht 170 cm; Wt 61.0 kg
[~2021-05-17 16:53] MED LIST changes: +AZIT250T12 PO; -SULF1TAB35 PO; +SULF1TAB38 PO
--- NOTE | 2021-05-17 17:04 | ED General ---
General Stated Complaint: ABSCESSED TOOTH, L FOOT INJURY Source of Information: Patient Exam Limitations: No Limitations History of Present Illness Date Seen by Provider: May 17, 2021 Time Seen by Provider: 17:01 Initial Comments To ER with reports of right upper dental pain which she believes represents a dental abscess. At this time there is no swelling. No fevers. She also has left middle toe pain after accidentally kicking the wall. This occurred about 24 hours ago. Timing/Duration: 12-24 Hours Severity: Moderate Associated Systoms: Denies Symptoms Allergies and Home Medications Allergies Coded Allergies: gluten (Verified Allergy, Unknown, 07/08/20) Patient Home Medication List Home Medication List Reviewed: Yes Aspirin (Aspirin) 81 Mg Tab.chew, 81 MG PO DAILY, (Reported) Entered as Reported by: AMPARO FELDER on 07/08/20 110 Azithromycin (Azithromycin) 250 Mg Tablet, 250 MG PO DAILY Prescribed by: OLAMIDE LOZADA on 02/23/21 1132 Buspirone HCl (Buspirone HCl) 10 Mg Tablet, 10 MG PO TID, (Reported) Entered as Reported by: AMPARO FELDER on 07/08/20 110 Carvedilol (Carvedilol) 6.25 Mg Tablet, 6.25 MG PO BID, (Reported) Entered as Reported by: AMPARO FELDER on 07/08/20 1106 Cefdinir (Cefdinir) 300 Mg Capsule, 300 MG PO after dialysis Prescribed by: OLAMIDE LOZADA on 02/23/21 1132 Ciprofloxacin HCl (Ciprofloxacin HCl) 500 Mg Tablet, 500 MG PO BID Prescribed by: CURT ROBERTSON on 09/28/20 1226 Cyclobenzaprine HCl (Cyclobenzaprine HCl) 10 Mg Tablet, 10 MG PO TID PRN for MUSCLE SPASMS, (Reported) Entered as Reported by: KENZIE REYES on 09/30/18 0929 Escitalopram Oxalate (Lexapro) 20 Mg Tablet, 20 MG PO DAILY, (Reported) Entered as Reported by: AMPARO FELDER on 07/08/20 1106 Furosemide (Furosemide) 80 Mg Tablet, 80 MG PO BID, (Reported) Entered as Reported by: AMPARO FELDER on 07/08/20 1106 Gabapentin (Neurontin) 300 Mg Capsule, 300 MG PO TID, (Reported) Entered as Reported by: AMPARO FELDER on 07/08/20 110 Hydroxyzine Pamoate (Vistaril) 25 Mg Capsule, 25 MG PO TID, (Reported) Entered as Reported by: AMPARO FELDER on 07/08/20 110 Insulin Glargine,Hum.rec.anlog (Lantus Solostar) 100 Unit/1 Ml Insuln.pen, 12 UNITS SC HS, (Reported) Entered as Reported by: KENZIE REYES on 09/30/18 0929 Insulin Lispro (Humalog Kwikpen) 100 Unit/1 Ml Insuln.pen, UNITS SQ AC, (Reported) Entered as Reported by: ASHWIN FARR on 12/15/16 0859 Lisinopril (Lisinopril) 10 Mg Tablet, 10 MG PO DAILY, (Reported) Entered as Reported by: AMPARO FELDER on 07/08/20 110 Loperamide HCl (Anti-Diarrheal) 2 Mg Capsule, 2 MG PO PRN PRN for DIARRHEA Prescribed by: CURT ROBERTSON on 09/28/20 1226 Metronidazole (Metronidazole) 500 Mg Tablet, 500 MG PO BID Prescribed by: CURT ROBERTSON on 09/28/20 1226 Nifedipine (Procardia Xl) 60 Mg Tab.er.24, 60 MG PO BID, (Reported) Entered as Reported by: JESSICA CONDON on 09/29/18 2358 Tramadol HCl (Tramadol HCl) 50 Mg Tablet, 50 MG PO TID, (Reported) Entered as Reported by: AMPARO FELDER on 07/08/20 110 Trazodone HCl (Trazodone HCl) 100 Mg Tablet, 100 MG PO HS, (Reported) Entered as Reported by: AMPARO FELDER on 07/08/20 110 Review of Systems Review of Systems Constitutional: see HPI EENTM: see HPI Respiratory: no symptoms reported Cardiovascular: no symptoms reported Genitourinary: see HPI Musculoskeletal: no symptoms reported Skin: no symptoms reported Psychiatric/Neurological: No Symptoms Reported Hematologic/Lymphatic: No Symptoms Reported Immunological/Allergic: no symptoms reported Past Pogngcc-Xelmyi-Hloxsq Hx Immunizations Up To Date Tetanus Booster (TDap): Less than 5yrs PED Vaccines UTD: No Seasonal Allergies Seasonal Allergies: No Past Medical History 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 Sexually Transmitted Disease: No HIV/AIDS: No Genitourinary: Yes Bladder Infection, Renal Failure, Dialysis, UTI-Chronic Gastrointestinal: Yes (CELIAC DISEASE; HEPATITIS C--NO TREATMENT) Hepatitis Musculoskeletal: Yes (RIGH T2ND/3RD TOES AMPUTATED DUE TO OSTEOMYELITIS, Charcot foot) Amputee, Fractures Endocrine: Yes Diabetes, Insulin dep HEENT: No (GLASSES) Loss of Vision: Bilateral Hearing Impairment: Denies Cancer: No Psychosocial: Yes Anxiety, Depression Integumentary: Yes (MRSA) Blood Disorders: Yes (HEP C+, ANEMIA) Adverse Reaction/Blood Tranf: No (HAS HAD BLOOD WITH NO REACTION ) Family Medical History FH: COPD (chronic obstructive pulmonary disease) 19 FATHER FH: congestive heart failure 19 FATHER FH: liver cancer 19 MOTHER No Pertinent Family Hx Physical Exam Vital Signs Vital Signs - First Documented 05/17/21 17:03 Temp 36.8 Pulse 77 Resp 18 B/P (MAP) 112/71 (85) Pulse Ox 95 O2 Delivery Room Air Capillary Refill : Height, Weight, BMI Height: 5'7.00" Weight: 157lbs. 9.0oz. 71.563267ty; 20.00 BMI Method:Stated General Appearance: No Apparent Distress, WD/WN, Thin Eyes: Bilateral Eye Normal Inspection, Bilateral Eye PERRL Neck: Full Range of Motion, Normal Inspection Respiratory: No Accessory Muscle Use, No Respiratory Distress Extremity: Normal Capillary Refill, Normal Inspection, Other (The left middle toe is circumferentially ecchymotic and slightly swollen. This ecchymosis does not extend proximally beyond the third MTP joint. No erythema or cellulitis type changes. In regards to the dental pain there is a fractured carious tooth though there is no fluctuant abscess or visible swelling) Neurologic/Psychiatric: Alert, Oriented x3 Skin: Normal Color, Warm/Dry Progress/Results/Core Measures Suspected Sepsis SIRS Temperature: Pulse: Respiratory Rate: Blood Pressure / Mean: Results/Orders My Orders Orders - LATOYA CHRISTIANSEN APRN Foot, Left, 3 Views (05/17/21 17:01) Vital Signs/I&O 05/17/21 17:03 Temp 36.8 Pulse 77 Resp 18 B/P (MAP) 112/71 (85) Pulse Ox 95 O2 Delivery Room Air Capillary Refill : Departure Impression Primary Impression: Pain, dental Disposition: HOME, SELF-CARE Condition: Stable Departure-Patient Inst. Decision time for Depature: 17:04 Referrals: [facility] (PCP/Family) Primary Care Physician Patient Instructions: Dental Pain ED Scripts Tramadol HCl (Ultram) 50 Mg Tablet 50 MG PO TID PRN for PAIN-MODERATE (5-7), #10 TAB Prov: LATOYA CHRISTIANSEN APRN 05/17/21 Amoxicillin (Amoxicillin) 500 Mg Tablet 500 MG PO TID, #21 TAB Prov: LATOYA CHRISTIANSEN APRN 05/17/21 LATOYA CHRISTIANSEN APRN May 17, 2021 17:04
[2021-05-17] MEDS ORDERED: AMOX500T2 PO (17:41)
[2021-05-17] MEDS ORDERED: TRAM-42 PO (17:41)
--- NOTE | 2021-05-17 17:46 | Diagnostic Imaging Report ---
CLINICAL HISTORY: Stubbed 3rd left toe. Foot pain. COMPARISON: 04/15/2020. TECHNIQUE: 3 views of the left foot. FINDINGS: There is no acute fracture or dislocation of the left foot. Healed fractures are seen in the left 1st proximal phalanx and 4th and 5th metatarsals. Advanced degenerative changes are again seen in the left midfoot involving the left 1st through 3rd MTP joints and medial intertarsal joints. Findings are similar to the prior exam. The soft tissues of the left foot are unremarkable. IMPRESSION: 1. No acute fracture or dislocation in the left foot. 2. Advanced degenerative changes in the left mid foot. Dictated by: Dictated on workstation # [id number]
[2021-05-17 17:54] VITALS: BP 112/71
== END 2021-05-17 17:55 | disposition home or self-care (01) ==
LOC: EDUNIT# 16:53 → ER 16:55
DX: S90.122A Contusion of left lesser toe(s) without damage to nail, initial encounter (principal); K08.89 Other specified disorders of teeth and supporting structures; I10 Essential (primary) hypertension; E11.40 Type 2 diabetes mellitus with diabetic neuropathy, unspecified; G40.909 Epilepsy, unspecified, not intractable, without status epilepticus; F41.9 Anxiety disorder, unspecified; F32.9 Major depressive disorder, single episode, unspecified; Z89.421 Acquired absence of other right toe(s); Z79.4 Long term (current) use of insulin; Z79.899 Other long term (current) drug therapy; W22.01XA Walked into wall, initial encounter
CPT/HCPCS: 73630

== ENCOUNTER 2021-06-20 08:37 | Emergency (ER) | payer MEDICARE, MEDICAID ==
[~2021-06-20] VITALS: Ht 170 cm; Wt 63.5 kg
[~2021-06-20 08:37] MED LIST changes: +AMOX500T2 PO; +TRAM-42 PO
--- NOTE | 2021-06-20 08:51 | ED EENT ---
History of Present Illness General Chief Complaint: Dental Problems/Pain Stated Complaint: ABCESS TOOTH Source: patient Exam Limitations: no limitations History of Present Illness Date Seen by Provider: Jun 20, 2021 Time Seen by Provider: 08:40 Initial Comments 36yoF with PMH of HTN and DM here for dental pain. Known cavity in tooth. 3 days ago went to [facility] and given clindamycin but pain worse so presented here. Swelling started yesterday in her face and has been progressing. Pain is severe, constant, throbbing, and worse when she touches her face. Denies fever, cough, sob, cp, abd pain, n/v/d, difficulty eating or swallowing, or voice changes. Allergies and Home Medications Allergies Coded Allergies: gluten (Verified Allergy, Unknown, 07/08/20) Patient Home Medication List Home Medication List Reviewed: Yes Amoxicillin (Amoxicillin) 500 Mg Tablet, 500 MG PO TID Prescribed by: LATOYA CHRISTIANSEN on 05/17/21 1741 Aspirin (Aspirin) 81 Mg Tab.chew, 81 MG PO DAILY, (Reported) Entered as Reported by: AMPARO FELDER on 07/08/20 1106 Azithromycin (Azithromycin) 250 Mg Tablet, 250 MG PO DAILY Prescribed by: OLAMIDE LOZADA on 02/23/21 1132 Buspirone HCl (Buspirone HCl) 10 Mg Tablet, 10 MG PO TID, (Reported) Entered as Reported by: AMPARO FELDER on 07/08/20 1106 Carvedilol (Carvedilol) 6.25 Mg Tablet, 6.25 MG PO BID, (Reported) Entered as Reported by: AMPARO FELDER on 07/08/20 1106 Cefdinir (Cefdinir) 300 Mg Capsule, 300 MG PO after dialysis Prescribed by: OLAMIDE LOZADA on 02/23/21 1132 Ciprofloxacin HCl (Ciprofloxacin HCl) 500 Mg Tablet, 500 MG PO BID Prescribed by: CURT ROBERTSON on 09/28/20 1226 Cyclobenzaprine HCl (Cyclobenzaprine HCl) 10 Mg Tablet, 10 MG PO TID PRN for MUSCLE SPASMS, (Reported) Entered as Reported by: KENZIE REYES on 09/30/18 0929 Escitalopram Oxalate (Lexapro) 20 Mg Tablet, 20 MG PO DAILY, (Reported) Entered as Reported by: AMPARO FELDER on 07/08/20 110 Furosemide (Furosemide) 80 Mg Tablet, 80 MG PO BID, (Reported) Entered as Reported by: AMPARO FELDER on 07/08/20 110 Gabapentin (Neurontin) 300 Mg Capsule, 300 MG PO TID, (Reported) Entered as Reported by: AMPARO FELDER on 07/08/20 110 Hydroxyzine Pamoate (Vistaril) 25 Mg Capsule, 25 MG PO TID, (Reported) Entered as Reported by: AMPARO FELDER on 07/08/20 110 Insulin Glargine,Hum.rec.anlog (Lantus Solostar) 100 Unit/1 Ml Insuln.pen, 12 UNITS SC HS, (Reported) Entered as Reported by: KENZIE REYES on 09/30/18 0929 Insulin Lispro (Humalog Kwikpen) 100 Unit/1 Ml Insuln.pen, UNITS SQ AC, (Reported) Entered as Reported by: ASHWIN FARR on 12/15/16 0859 Lisinopril (Lisinopril) 10 Mg Tablet, 10 MG PO DAILY, (Reported) Entered as Reported by: AMPARO FELDER on 07/08/20 110 Loperamide HCl (Anti-Diarrheal) 2 Mg Capsule, 2 MG PO PRN PRN for DIARRHEA Prescribed by: CURT ROBERTSON on 09/28/20 1226 Metronidazole (Metronidazole) 500 Mg Tablet, 500 MG PO BID Prescribed by: CURT ROBERTSON on 09/28/20 1226 Nifedipine (Procardia Xl) 60 Mg Tab.er.24, 60 MG PO BID, (Reported) Entered as Reported by: JESSICA CONDON on 09/29/18 5318 Tramadol HCl (Tramadol HCl) 50 Mg Tablet, 50 MG PO TID, (Reported) Entered as Reported by: AMPARO FELDER on 07/08/20 110 Tramadol HCl (Ultram) 50 Mg Tablet, 50 MG PO TID PRN for PAIN-MODERATE (5-7) Prescribed by: LATOYA CHRISTIANSEN on 05/17/21 1742 Trazodone HCl (Trazodone HCl) 100 Mg Tablet, 100 MG PO HS, (Reported) Entered as Reported by: AMPARO FELDER on 07/08/20 1106 Review of Systems Review of Systems Constitutional: No chills, No fever Eyes: Denies Blurred Vision Ears: Denies Pain Mouth: pain, swelling Throat: denies pain, denies swelling, denies neck stiffness, denies hoarse, denies painful swallowing, denies difficulty with fluids Respiratory: No cough, No short of breath Cardiovascular: No chest pain Gastrointestinal: No abdominal pain, No diarrhea, No nausea, No vomiting Musculoskeletal: no symptoms reported Skin: no symptoms reported Neurological: No Symptoms Reported Hematologic/Lymphatic: No Symptoms Reported Immunological/Allergic: no symptoms reported All Other Systems Reviewed Negative Unless Noted: Yes Past Bbqgyyo-Wbxcgv-Wvtaeg Hx Patient Social History Tobacco Use?: Yes Immunizations Up To Date Tetanus Booster (TDap): Less than 5yrs PED Vaccines UTD: No Seasonal Allergies Seasonal Allergies: No Past Medical History 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 Sexually Transmitted Disease: No HIV/AIDS: No Genitourinary: Yes Bladder Infection, Renal Failure, Dialysis, UTI-Chronic Gastrointestinal: Yes (CELIAC DISEASE; HEPATITIS C--NO TREATMENT) Hepatitis Musculoskeletal: Yes (RIGH T2ND/3RD TOES AMPUTATED DUE TO OSTEOMYELITIS, Charcot foot) Amputee, Fractures Endocrine: Yes Diabetes, Insulin dep HEENT: No (GLASSES) Loss of Vision: Bilateral Hearing Impairment: Denies Cancer: No Psychosocial: Yes Anxiety, Depression Integumentary: Yes (MRSA) Blood Disorders: Yes (HEP C+, ANEMIA) Adverse Reaction/Blood Tranf: No (HAS HAD BLOOD WITH NO REACTION ) Family Medical History FH: COPD (chronic obstructive pulmonary disease) 19 FATHER FH: congestive heart failure 19 FATHER FH: liver cancer 19 MOTHER No Pertinent Family Hx Physical Exam Vital Signs Vital Signs - First Documented 06/20/21 08:49 Temp 36.6 Pulse 86 Resp 18 B/P (MAP) 129/65 (86) Pulse Ox 93 Height, Weight, BMI Height: 5'7.00" Weight: 157lbs. 9.0oz. [id number]; 21.00 BMI Method:Stated General Appearance: WD/WN, no apparent distress Eyes: bilateral eye normal inspection, bilateral eye PERRL Ears: bilateral ear auricle normal, bilateral ear canal normal Nose: normal inspection; No sinus tenderness Mouth/Throat: pharynx normal, dental tenderness; No excessive drooling, No mandibular swelling, No pharynx swelling, No pharynx tenderness, No tongue swollen, No tonsillar swelling, No trismus, No uvula swelling, No voice changes; other (upper mouth and cheek swollen) Neck: non-tender, full range of motion, supple, normal inspection Cardiovascular: regular rate, rhythm, no edema, no murmur Respiratory: chest non-tender, lungs clear, normal breath sounds, no respiratory distress, no accessory muscle use Gastrointestinal: normal bowel sounds, non tender, soft; No distended, No guarding, No rebound Neurologic/Psychiatric: no motor/sensory deficits, alert Skin: normal color, warm/dry Procedures/Interventions Dental Procedures: Dental I&D (Infraorbital nerve block completed with total anesthesia to the affected area. Afterwards an incision was performed just above the first premolar with scant amount of purulent drainage afterwards a scant amount of bleeding. This was controlled with suctioning and pressure with gauze. Patient tolerated the procedure well) Progress/Results/Core Measures Results/Orders My Orders Orders - CLARIBEL CARY MD Ketorolac Injection (Toradol Injection) (06/20/21 09:15) Lidocaine 1% Inj 20 Ml (Xylocaine 1% Inj (06/20/21 09:15) Oxycodone Immediate Rel Tablet (Oxyir Ta (06/20/21 09:15) Medications Given in ED Current Medications Medications Dose Ordered Sig/Dipti Route Start Time Stop Time Status Last Admin Dose Admin Ketorolac Tromethamine 15 mg ONCE ONCE IM 06/20/21 09:15 06/20/21 09:16 DC 06/20/21 09:17 15 MG Oxycodone HCl 5 mg ONCE ONCE PO 06/20/21 09:15 06/20/21 09:16 DC 06/20/21 09:16 5 MG Vital Signs/I&O 06/20/21 08:49 Temp 36.6 Pulse 86 Resp 18 B/P (MAP) 129/65 (86) Pulse Ox 93 Progress Progress Note : Progress Note 36-year-old female with above history coming in clinically due to a dental abscess. ABCs were intact and vitals were stable on presentation. Physical exam consistent with dental abscess. She has no signs or symptoms of Mary's angina, peritonsillar abscess, retropharyngeal abscess, or any other significant deep infection. Infraorbital nerve block performed in incision done with a dental abscess was palpated with a scant amount of purulent drainage. The wound was left open. She will continue the antibiotics that she is prescribed and was given 1 dose of steroids here. She said she has an appointment in several weeks to have the too th removed. She was then discharged home in stable condition with strict return precautions Departure Impression Primary Impression: Dental abscess Disposition: HOME, SELF-CARE Condition: Stable Departure-Patient Inst. Decision time for Depature: 09:56 Referrals: [facility] (PCP) Primary Care Physician DARIEN HAN APRN (Family) Primary Care Physician Patient Instructions: Tooth Abscess ED Add. Discharge Instructions: Continue to take antibiotics as prescribed. Take ibuprofen 600 mg every 6 hours for pain. If you have continued pain you can take the oxycodone I prescribed you. If you develop any fever, difficulty opening your mouth or you cannot open it, or any other concerns then please come back to the ER. Otherwise it is crucial that you get this tooth removed at the dentist, otherwise it will continue to get worse. All discharge instructions reviewed with patient and/or family. Voiced understanding. Scripts Oxycodone HCl (Oxycodone HCl) 5 Mg Tablet 5 MG PO Q6H for Pain for 3 Days, #12 TAB Prov: CLARIBEL CARY MD 06/20/21 CLARIBEL CARY MD Jun 20, 2021 08:51
[2021-06-20] MEDS ORDERED: LIDOCAINE 1% INJ 20 ML 20 ML VIAL INJ ONE (09:15)
[2021-06-20] MEDS ORDERED: KETOROLAC 30 MG/ML VIAL IM ONE (09:15)
[2021-06-20] MEDS ORDERED: OXYC5TAB PO (09:57)
[2021-06-20] MEDS ORDERED: dexAMETHasone 6 MG TAB (DECADRON) PO STA (09:58)
[2021-06-20 10:33] VITALS: BP 157/87
== END 2021-06-20 10:33 | disposition home or self-care (01) ==
LOC: EDUNIT# 08:37 → ER 08:38
DX: K04.7 Periapical abscess without sinus (principal); I10 Essential (primary) hypertension; F41.9 Anxiety disorder, unspecified; F32.9 Major depressive disorder, single episode, unspecified; E11.9 Type 2 diabetes mellitus without complications; G40.909 Epilepsy, unspecified, not intractable, without status epilepticus; Z86.16 Personal history of COVID-19; Z79.82 Long term (current) use of aspirin; Z79.899 Other long term (current) drug therapy; Z79.4 Long term (current) use of insulin
CPT/HCPCS: 41800; 64400

== ENCOUNTER 2021-06-25 21:28 | Emergency (ER) | payer MEDICARE, MEDICAID ==
[~2021-06-25] VITALS: Ht 67 cm; Wt 62.1 kg
[~2021-06-25 21:28] MED LIST changes: +CLIN-144 PO; -CLIN300C12 PO; +OXYC5TAB PO
[2021-06-25 21:45] VITALS: BP 103/61
[2021-06-25] MEDS ORDERED: NS (IVPB) 250 ML IV ONE (21:45)
--- NOTE | 2021-06-25 21:52 | ED General ---
General Stated Complaint: DIABETIC/FATIGUE/BODY ACHES/N/V/HIGH SUGARS Source of Information: Patient Exam Limitations: No Limitations History of Present Illness Date Seen by Provider: Jun 25, 2021 Time Seen by Provider: 21:37 Initial Comments Patient is a 36-year-old female who presents to the emergency department today with a chief complaint of generalized fatigue, malaise, body aches, nausea and vomiting and "high" blood sugars. Patient states that she was seen in the emergency department several days ago and given a shot of steroids for a dental abscess. She states she subsequently has seen a dentist and has been on clindamycin since then. She denies fevers, chills, sore throat, runny nose, congestion. No productive cough. She is not short of breath. Denies abdominal pain. Has been nauseous and had episodes of vomiting today. States that she was able to eat a little dinner this evening. Denies diarrhea, abnormal vaginal discharge, dysuria urgency or frequency. Rarely makes urine. No rashes joint pain or swelling. Patient is not Covid vaccinated. She is a dialysis patient and dialyzes Tuesdays, and Saturdays. She states she completed a normal dialysis run today. 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 All other review of systems reviewed and negative except as stated. Timing/Duration: 2-3 Days Severity: Severe Associated Systoms: Headaches, Malaise, Nausea/Vomiting, Weakness Allergies and Home Medications Allergies Coded Allergies: gluten (Verified Allergy, Unknown, 07/08/20) Patient Home Medication List Home Medication List Reviewed: Yes Amoxicillin (Amoxicillin) 500 Mg Tablet, 500 MG PO TID Prescribed by: LATOYA CHRISTIANSEN on 05/17/21 1741 Aspirin (Aspirin) 81 Mg Tab.chew, 81 MG PO DAILY, (Reported) Entered as Reported by: AMPARO FELDER on 07/08/20 1106 Azithromycin (Azithromycin) 250 Mg Tablet, 250 MG PO DAILY Prescribed by: OLAMIDE LOZADA on 02/23/21 1132 Buspirone HCl (Buspirone HCl) 10 Mg Tablet, 10 MG PO TID, (Reported) Entered as Reported by: AMPARO FELDER on 07/08/20 1106 Carvedilol (Carvedilol) 6.25 Mg Tablet, 6.25 MG PO BID, (Reported) Entered as Reported by: AMPARO FELDER on 07/08/20 110 Cefdinir (Cefdinir) 300 Mg Capsule, 300 MG PO after dialysis Prescribed by: OLAMIDE LOZADA on 02/23/21 1132 Ciprofloxacin HCl (Ciprofloxacin HCl) 500 Mg Tablet, 500 MG PO BID Prescribed by: CURT ROBERTSON on 09/28/20 1226 Cyclobenzaprine HCl (Cyclobenzaprine HCl) 10 Mg Tablet, 10 MG PO TID PRN for MUSCLE SPASMS, (Reported) Entered as Reported by: KENZIE REYES on 09/30/18 0929 Escitalopram Oxalate (Lexapro) 20 Mg Tablet, 20 MG PO DAILY, (Reported) Entered as Reported by: AMPARO FELDER on 07/08/20 110 Furosemide (Furosemide) 80 Mg Tablet, 80 MG PO BID, (Reported) Entered as Reported by: AMPARO FELDER on 07/08/20 110 Gabapentin (Neurontin) 300 Mg Capsule, 300 MG PO TID, (Reported) Entered as Reported by: AMPARO FELDER on 07/08/20 110 Hydroxyzine Pamoate (Vistaril) 25 Mg Capsule, 25 MG PO TID, (Reported) Entered as Reported by: AMPARO FELDER on 07/08/20 110 Insulin Glargine,Hum.rec.anlog (Lantus Solostar) 100 Unit/1 Ml Insuln.pen, 12 UNITS SC HS, (Reported) Entered as Reported by: KENZIE REYES on 09/30/18928 Insulin Lispro (Humalog Kwikpen) 100 Unit/1 Ml Insuln.pen, UNITS SQ AC, (Reported) Entered as Reported by: ASHWIN FARR on 12/15/16 0859 Lisinopril (Lisinopril) 10 Mg Tablet, 10 MG PO DAILY, (Reported) Entered as Reported by: AMPARO FELDER on 07/08/20 110 Loperamide HCl (Anti-Diarrheal) 2 Mg Capsule, 2 MG PO PRN PRN for DIARRHEA Prescribed by: CURT ROBERTSON on 09/28/20 1226 Metronidazole (Metronidazole) 500 Mg Tablet, 500 MG PO BID Prescribed by: CURT ROBERTSON on 09/28/20 1226 Nifedipine (Procardia Xl) 60 Mg Tab.er.24, 60 MG PO BID, (Reported) Entered as Reported by: JESSICA CONDON on 09/29/18 2358 Oxycodone HCl (Oxycodone HCl) 5 Mg Tablet, 5 MG PO Q6H Prescribed by: CLARIBEL CARY on 06/20/21 0958 Tramadol HCl (Tramadol HCl) 50 Mg Tablet, 50 MG PO TID, (Reported) Entered as Reported by: AMPARO FELDER on 07/08/20 1106 Tramadol HCl (Ultram) 50 Mg Tablet, 50 MG PO TID PRN for PAIN-MODERATE (5-7) Prescribed by: LATOYA CHRISTIANSEN on 05/17/21 1742 Trazodone HCl (Trazodone HCl) 100 Mg Tablet, 100 MG PO HS, (Reported) Entered as Reported by: AMPARO FELDER on 07/08/20 1106 Review of Systems Review of Systems Constitutional: see HPI EENTM: mouth pain (right upper jaw pain/dental pain) Respiratory: no symptoms reported Cardiovascular: no symptoms reported Gastrointestinal: nausea, vomiting Genitourinary: no symptoms reported : No Musculoskeletal: muscle cramps Skin: no symptoms reported All Other Systems Reviewed Negative Unless Noted: Yes Past Jkuhjwf-Kikvsf-Exzzom Hx Immunizations Up To Date Tetanus Booster (TDap): Less than 5yrs PED Vaccines UTD: No First/Initial COVID19 Vaccinat: no Second COVID19 Vaccination Williams: no Seasonal Allergies Seasonal Allergies: No Past Medical History Surgery/Hospitalization HX: sx: dialysis fistula l arm, 3 c-sec, open heart sx, r toe ampuations x 2 pmh: dialysis, dm-insulin, heart disease. 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 Sexually Transmitted Disease: No HIV/AIDS: No Genitourinary: Yes Bladder Infection, Renal Failure, Dialysis, UTI-Chronic Gastrointestinal: Yes (CELIAC DISEASE; HEPATITIS C--NO TREATMENT) Hepatitis Musculoskeletal: Yes (RIGH T2ND/3RD TOES AMPUTATED DUE TO OSTEOMYELITIS, [place] t foot) Amputee, Fractures Endocrine: Yes Diabetes, Insulin dep HEENT: No (GLASSES) Loss of Vision: Bilateral Hearing Impairment: Denies Cancer: No Psychosocial: Yes Anxiety, Depression Integumentary: Yes (MRSA) Blood Disorders: Yes (HEP C+, ANEMIA) Adverse Reaction/Blood Tranf: No (HAS HAD BLOOD WITH NO REACTION ) Family Medical History FH: COPD (chronic obstructive pulmonary disease) 19 FATHER FH: congestive heart failure 19 FATHER FH: liver cancer 19 MOTHER No Pertinent Family Hx Physical Exam Vital Signs Vital Signs - First Documented Capillary Refill : Height, Weight, BMI Height: 5'7.00" Weight: 157lbs. 9.0oz. 71.794317sw; 21.00 BMI Method:Stated General Appearance: Anxious, Chronically ill Eyes: Bilateral Eye Normal Inspection, Bilateral Eye PERRL, Bilateral Eye EOMI HEENT: PERRL/EOMI, Normal ENT Inspection, Other (patient has evidence of incision in the mucosa above the right lateral incisor, no surrounding inflammation, no active drainage noted. She has no overlying facial swelling. States she does have some tenderness in her face over the upper maxillae on the right) Neck: Normal Inspection, Supple Respiratory: Lungs Clear, Normal Breath Sounds, No Accessory Muscle Use, No Respiratory Distress Cardiovascular: Regular Rate, Rhythm, Normal Peripheral Pulses Gastrointestinal: Non Tender, Soft Extremity: Normal Inspection, Normal Range of Motion, Non Tender, No Calf Tenderness, No Pedal Edema, Other (patient has vascular access (fistula) left upper arm - good thrill, no erythema, non tender) Neurologic/Psychiatric: Alert, Oriented x3, No Motor/Sensory Deficits, Normal Mood/Affect Skin: Normal Color, Warm/Dry Procedures/Interventions Dental Procedures: Dental I&D Progress/Results/Core Measures Suspected Sepsis SIRS Temperature: Pulse: Respiratory Rate: Laboratory Tests 06/25/21 21:55: White Blood Count 8.4 Blood Pressure / Mean: Laboratory Tests 06/25/21 21:55: Creatinine 9.88H, Platelet Count 273, Total Bilirubin 0.5 Results/Orders Lab Results Laboratory Tests Test 06/25/21 21:53 06/25/21 21:55 06/25/21 22:08 06/25/21 22:22 Range/Units Glucometer 404 *H 70-110 MG/DL White Blood Count 8.4 4.3-11.0 10^3/uL Red Blood Count 3.01 L 3.80-5.11 10^6/uL Hemoglobin 9.3 L 11.5-16.0 g/dL Hematocrit 28 L 35-52 % Mean Corpuscular Volume 93 80-99 fL Mean Corpuscular Hemoglobin 31 25-34 pg Mean Corpuscular Hemoglobin Concent 33 32-36 g/dL Red Cell Distribution Width 12.9 10.0-14.5 % Platelet Count 273 130-400 10^3/uL Mean Platelet Volume 11.6 9.0-12.2 fL Immature Granulocyte % (Auto) 1 % Neutrophils (%) (Auto) 45 42-75 % Lymphocytes (%) (Auto) 41 12-44 % Monocytes (%) (Auto) 9 0-12 % Eosinophils (%) (Auto) 3 0-10 % Basophils (%) (Auto) 1 0-10 % Neutrophils # (Auto) 3.8 1.8-7.8 10^3/uL Lymphocytes # (Auto) 3.4 1.0-4.0 10^3/uL Monocytes # (Auto) 0.8 0.0-1.0 10^3/uL Eosinophils # (Auto) 0.3 0.0-0.3 10^3/uL Basophils # (Auto) 0.1 0.0-0.1 10^3/uL Immature Granulocyte # (Auto) 0.1 0.0-0.1 10^3/uL Sodium Level 124 *L 135-145 MMOL/L Potassium Level 6.6 *H 3.6-5.0 MMOL/L Chloride Level 86 L 98-107 MMOL/L Carbon Dioxide Level 18 L 21-32 MMOL/L Anion Gap 20 H 5-14 MMOL/L Blood Urea Nitrogen 92 H 7-18 MG/DL Creatinine 9.88 H 0.60-1.30 MG/DL Estimat Glomerular Filtration Rate 4 BUN/Creatinine Ratio 9 Glucose Level 450 *H 70-105 MG/DL Calcium Level 10.2 H 8.5-10.1 MG/DL Corrected Calcium 10.1 8.5-10.1 MG/DL Total Bilirubin 0.5 0.1-1.0 MG/DL Aspartate Amino Transf (AST/SGOT) 13 5-34 U/L Alanine Aminotransferase (ALT/SGPT) 21 0-55 U/L Alkaline Phosphatase 74 40-136 U/L Total Protein 7.9 6.4-8.2 GM/DL Albumin 4.1 3.2-4.5 GM/DL Lipase 27 8-78 U/L Beta-Hydroxybutyrate (Chem panel) 0.11 0.00-0.27 MMOL/L Influenza Type A (RT-PCR) Not Detected Not Detecte Influenza Type B (RT-PCR) Not Detected Not Detecte SARS-CoV-2 RNA (RT-PCR) Not Detected Not Detecte Serum Test, Qualitative NEGATIVE NEGATIVE Test 06/25/21 22:36 Range/Units Blood Gas Puncture Site RR Blood Gas Patient Temperature 37 Arterial Blood pH 7.41 7.37-7.43 Arterial Blood Partial Pressure CO2 41 35-45 MMHG Arterial Blood Partial Pressure O2 76 L 79-93 MMHG Arterial Blood HCO3 25 23-27 MMOL/L Arterial Blood Total CO2 26.4 21.0-31.0 MMOL/L Arterial Blood Oxygen Saturation 95 94-100 % Arterial Blood Base Excess 0.9 -2.5-2.5 MMOL/L Sebastian Test YES-POS Blood Gas Ventilator Setting NO Blood Gas Inspired Oxygen ROOM AIR My Orders Orders - MATILDE MAYES MD Ed Iv/Invasive Line Start (06/25/21 21:43) Cbc With Automated Diff (06/25/21 21:43) Comprehensive Metabolic Panel (06/25/21 21:43) Lipase (06/25/21 21:43) Covid 19 Inhouse Test (06/25/21 21:43) Ua Culture If Indicated (06/25/21 21:43) Hcg,Qualitative Serum (06/25/21 21:43) Beta Hydroxybutyrate (06/25/21 21:43) Arterial Blood Gas (06/25/21 21:43) Ns (Ivpb) (Sodium Chloride 0.9%) (06/25/21 21:45) Ondansetron Injection (Zofran Injectio (06/25/21 22:00) Oxycodone/Apap 7.5/325mg Tab (Percocet (06/25/21 22:00) Influenza A And B By Pcr (06/25/21 22:08) Arterial Blood Gas (06/25/21 22:38) Ekg Tracing (06/25/21 22:48) Insulin (Regular) Human (Novolin R (Per (06/25/21 23:00) D50w (Emergency) Syringe (Dextrose 50% 5 (06/25/21 23:00) Calcium Gluconate 10% Inj (Calcium Glu (06/25/21 23:00) Medications Given in ED Current Medications Medications Dose Ordered Sig/Dipti Route Start Time Stop Time Status Last Admin Dose Admin Ondansetron HCl 4 mg ONCE ONCE IVP 06/25/21 22:00 06/25/21 22:01 DC 06/25/21 22:06 4 MG Oxycodone/ Acetaminophen 1 each ONCE ONCE PO 06/25/21 22:00 06/25/21 22:01 DC 06/25/21 22:42 1 EACH Sodium Chloride 250 ml @ 999 mls/hr Q16M ONCE IV 06/25/21 21:45 06/25/21 22:01 DC 06/25/21 22:06 999 MLS/HR Vital Signs/I&O 06/25/21 06/25/21 21:45 21:45 Temp 36.8 Pulse 76 Resp 18 B/P (MAP) 103/61 (75) Pulse Ox 95 O2 Delivery Room Air Room Air Capillary Refill : Progress Note : Time: 23:07 Progress Note Case discussed with Dr. Cope at [facility], recommends a dose of Kayexalate and standard hyperkalemia protocol. Accepts patient to an ICU bed at [facility] Patient very anxious about manipulation of her blood sugars with insulin and D50. WIll keep a close close eye on her blood sugars. ECG Initial ECG Impression Date: Jun 25, 2021 Initial ECG Impression Time: 22:52 Initial ECG Rate: 64 Initial ECG Rhythm: Normal Sinus Initial ECG Intervals MS 155 QRS 106 QTc 453 Comment Peaked T Waves Departure Impression Primary Impression: Hyperkalemia Additional Impressions: Hyperglycemia Diabetes type 1, uncontrolled Qualified Codes: E10.65 - Type 1 diabetes mellitus with hyperglycemia Disposition: XF SHT-TRM HOSP Condition: Critical Transfer Transfer Reason: Exceeds level of care Time Spoke to Accepting Phy: 23:06 Transfer Facility: [facility] Departure-Patient Inst. Referrals: [facility] (PCP) Primary Care Physician DARIEN HAN APRN (Family) Primary Care Physician MATILDE MAYES MD Jun 25, 2021 21:52
[2021-06-25] MEDS ORDERED: oxyCODONE/APAP 7.5-325 MG (PERCOCET 7.5) TABLET PO ONE (22:00)
[2021-06-25] MEDS ORDERED: ONDANSETRON 4 MG/2 ML (SDV) Z0FRAN IVP ONE (22:00)
[2021-06-25 22:06] LABS: BASOPHILS # (AUTO) 0.1 10^3/uL (0.0-0.1); BASOPHILS % (AUTO) 1 % (0-10); EOSINOPHILS # (AUTO) 0.3 10^3/uL (0.0-0.3); EOSINOPHILS % (AUTO) 3 % (0-10); HEMATOCRIT 28 % (35-52); HEMOGLOBIN 9.3 g/dL (11.5-16.0); LYMPHOCYTES # (AUTO) 3.4 10^3/uL (1.0-4.0); LYMPHOCYTES % (AUTO) 41 % (12-44); MEAN CORPUSCULAR HEMOGLOBIN 31 pg (25-34); MEAN CORPUSCULAR HGB CONC 33 g/dL (32-36); MEAN CORPUSCULAR VOLUME 93 fL (80-99); MEAN PLATELET VOLUME 11.6 fL (9.0-12.2); MONOCYTES # (AUTO) 0.8 10^3/uL (0.0-1.0); MONOCYTES % (AUTO) 9 % (0-12); NEUTROPHILS # (AUTO) 3.8 10^3/uL (1.8-7.8); NEUTROPHILS % (AUTO) 45 % (42-75); PLATELET COUNT 273 10^3/uL (130-400); WHITE BLOOD COUNT 8.4 10^3/uL (4.3-11.0)
[2021-06-25 22:20] LABS: ALBUMIN 4.1 GM/DL (3.2-4.5)
[2021-06-25 22:22] LABS: CALCIUM 10.2 MG/DL (8.5-10.1)
[2021-06-25 22:23] LABS: TOTAL PROTEIN 7.9 GM/DL (6.4-8.2)
[2021-06-25 22:25] LABS: BILIRUBIN,TOTAL 0.5 MG/DL (0.1-1.0)
[2021-06-25 22:26] LABS: CREATININE SERUM 9.88 MG/DL (0.60-1.30)
[2021-06-25 22:34] LABS: POTASSIUM 6.6 MMOL/L (3.6-5.0)
[2021-06-25 22:39] LABS: ABG BASE EXCESS 0.9 MMOL/L (-2.5-2.5); ABG OXYGEN SATURATION 95 % (94-100); ABG PCO2 41 MMHG (35-45); ABG PH 7.41 (7.37-7.43); ABG PO2 76 MMHG (79-93); ABG TCO2 26.4 MMOL/L (21.0-31.0)
[2021-06-25 22:40] LABS: ALLENS TEST YES-POS; INSPIRED O2 ROOM AIR; PATIENT TEMP 37; VENTILATOR NO
[2021-06-25] MEDS ORDERED: inSUlin (REGULAR) HUMAN 1 UNIT/0.01 ML (CHARGE PER UNIT) IV ONE (23:00)
[2021-06-25] MEDS ORDERED: CALCIUM GLUC. 10% 4.65 MEQ/10 ML VIAL IV ONE (23:00)
[2021-06-25] MEDS ORDERED: DEXTROSE 50% 50 ML (IMS) SYR IV ONE (23:00)
[2021-06-25] MEDS ORDERED: SOD POLYSTERENE 15 GM/60 ML (KAYEXALATE) UNIT DOSE PO ONE (23:15)
[2021-06-25] MEDS ORDERED: LORazepam 0.5 MG (ATIVAN) TABLET PO STA (23:52)
== END 2021-06-26 00:33 | disposition short-term general hospital (02) ==
LOC: EDUNIT# 21:28 → ER 21:31
DX: E87.5 Hyperkalemia (principal); E10.65 Type 1 diabetes mellitus with hyperglycemia; I10 Essential (primary) hypertension; G40.909 Epilepsy, unspecified, not intractable, without status epilepticus; F41.9 Anxiety disorder, unspecified; F32.9 Major depressive disorder, single episode, unspecified; Z99.2 Dependence on renal dialysis; Z86.14 Personal history of Methicillin resistant Staphylococcus aureus infection; Z20.822 Contact with and (suspected) exposure to COVID-19; Z79.82 Long term (current) use of aspirin; Z79.899 Other long term (current) drug therapy
CPT/HCPCS: 36415; 36600; 80053; 82010; 82805; 82947; 83690; 84703; 85025; 87636; 93005; 96374; 96375; 99291

== ENCOUNTER 2021-09-15 18:04 | Emergency (ER) | payer MEDICARE, MEDICAID ==
[~2021-09-15] VITALS: Ht 170 cm; Wt 66.3 kg
[~2021-09-15 18:04] MED LIST changes: +CYCL10TA25 PO; -CYCL10TA9 PO; -LEVO250T46 PO; -LISI-729 PO; +LISI5TAB20 PO; +LVF250T PO; -VANC1VIA35 IV; +VANC1VIA39 IV
--- NOTE | 2021-09-15 18:22 | ED Lower Extremity ---
General Chief Complaint: Lower Extremity Stated Complaint: L FOOT INJURY Source: patient Exam Limitations: no limitations (LATOYA CHRISTIANSEN APRN) History of Present Illness Date Seen by Provider: Sep 15, 2021 Time Seen by Provider: 18:20 Initial Comments The ER with reports of left foot pain after she stepped down some stairs wrong last night. She has bruising to the area. Onset: yesterday Severity: moderate Pain/Injury Location: left foot Method of Injury: fell Modifying Factors: Worse With Movement (LATOYA CHRISTIANSEN APRN) Allergies and Home Medications Allergies Coded Allergies: gluten (Verified Allergy, Unknown, 07/08/20) Patient Home Medication List Home Medication List Reviewed: Yes (LATOYA CHRISTIANSEN APRN) Amoxicillin (Amoxicillin) 500 Mg Tablet, 500 MG PO TID Prescribed by: LATOYA CHRISTIANSEN on 05/17/21 174 Aspirin (Aspirin) 81 Mg Tab.chew, 81 MG PO DAILY, (Reported) Entered as Reported by: AMPARO FELDER on 07/08/20 1106 Azithromycin (Azithromycin) 250 Mg Tablet, 250 MG PO DAILY Prescribed by: OLAMIDE LOZADA on 02/23/21 1132 Buspirone HCl (Buspirone HCl) 10 Mg Tablet, 10 MG PO TID, (Reported) Entered as Reported by: AMPARO FELDER on 07/08/20 1106 Carvedilol (Carvedilol) 6.25 Mg Tablet, 6.25 MG PO BID, (Reported) Entered as Reported by: AMPARO FELDER on 07/08/20 1106 Cefdinir (Cefdinir) 300 Mg Capsule, 300 MG PO after dialysis Prescribed by: OLAMIDE LOZADA on 02/23/21 1132 Ciprofloxacin HCl (Ciprofloxacin HCl) 500 Mg Tablet, 500 MG PO BID Prescribed by: CURT ROBERTSON on 09/28/20 1226 Cyclobenzaprine HCl (Cyclobenzaprine HCl) 10 Mg Tablet, 10 MG PO TID PRN for MUSCLE SPASMS, (Reported) Entered as Reported by: KENZIE REYES on 09/30/18 0929 Escitalopram Oxalate (Lexapro) 20 Mg Tablet, 20 MG PO DAILY, (Reported) Entered as Reported by: AMPARO FELDER on 07/08/20 1106 Furosemide (Furosemide) 80 Mg Tablet, 80 MG PO BID, (Reported) Entered as Reported by: AMPARO FELDER on 07/08/20 110 Gabapentin (Neurontin) 300 Mg Capsule, 300 MG PO TID, (Reported) Entered as Reported by: AMPARO FELDER on 07/08/20 110 Hydrocodone/Acetaminophen (Hydrocodone-Acetamin 5-325 mg) 1 Each Tablet, 1 TAB PO Q4H PRN for PAIN-MODERATE (5-7) Prescribed by: LATOYA CHRISTIANSEN on 09/15/21 194 Hydroxyzine Pamoate (Vistaril) 25 Mg Capsule, 25 MG PO TID, (Reported) Entered as Reported by: AMPARO FELDER on 07/08/20 110 Insulin Glargine,Hum.rec.anlog (Lantus Solostar) 100 Unit/1 Ml Insuln.pen, 12 UNITS SC HS, (Reported) Entered as Reported by: KENZIE REYES on 09/30/18 0929 Insulin Lispro (Humalog Kwikpen) 100 Unit/1 Ml Insuln.pen, UNITS SQ AC, (Reported) Entered as Reported by: ASHWIN FARR on 12/15/16 0859 Lisinopril (Lisinopril) 10 Mg Tablet, 10 MG PO DAILY, (Reported) Entered as Reported by: AMPARO FELDER on 07/08/20 110 Loperamide HCl (Anti-Diarrheal) 2 Mg Capsule, 2 MG PO PRN PRN for DIARRHEA Prescribed by: CURT ROBERTSON on 09/28/20 1226 Metronidazole (Metronidazole) 500 Mg Tablet, 500 MG PO BID Prescribed by: CURT ROBERTSON on 09/28/20 1226 Nifedipine (Procardia Xl) 60 Mg Tab.er.24, 60 MG PO BID, (Reported) Entered as Reported by: JESSICA CONDON on 09/29/18 2358 Oxycodone HCl (Oxycodone HCl) 5 Mg Tablet, 5 MG PO Q6H Prescribed by: CLARIBEL CARY on 06/20/21 0958 Tramadol HCl (Tramadol HCl) 50 Mg Tablet, 50 MG PO TID, (Reported) Entered as Reported by: AMPARO FELDER on 07/08/20 110 Tramadol HCl (Ultram) 50 Mg Tablet, 50 MG PO TID PRN for PAIN-MODERATE (5-7) Prescribed by: LATOYA CHRISTIANSEN on 05/17/21 2022 Trazodone HCl (Trazodone HCl) 100 Mg Tablet, 100 MG PO HS, (Reported) Entered as Reported by: AMPARO FELDER on 07/08/20 1106 Review of Systems Constitutional: see HPI EENTM: see HPI Respiratory: no symptoms reported Cardiovascular: no symptoms reported Genitourinary: no symptoms reported Musculoskeletal: see HPI Skin: no symptoms reported Psychiatric/Neurological: No Symptoms Reported (LATOYA CHRISTIANSEN APRN) Past Kbfncln-Veykaf-Tlyeod Hx Immunizations Up To Date Tetanus Booster (TDap): Less than 5yrs PED Vaccines UTD: No First/Initial COVID19 Vaccinat: no Second COVID19 Vaccination Williams: no (LATOYA CHRISTIANSEN APRN) Seasonal Allergies Seasonal Allergies: No (LATOYA CHRISTIANSEN APRN) Past Medical History Surgery/Hospitalization HX: sx: dialysis fistula l arm, 3 c-sec, open heart sx, r toe ampuations x 2 pmh: dialysis, dm-insulin, heart disease. 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 [employer] History: Tubal Ligation Sexually Transmitted Disease: No HIV/AIDS: No Genitourinary: Yes Bladder Infection, Renal Failure, Dialysis, UTI-Chronic Gastrointestinal: Yes (CELIAC DISEASE; HEPATITIS C--NO TREATMENT) Hepatitis Musculoskeletal: Yes (RIGH T2ND/3RD TOES AMPUTATED DUE TO OSTEOMYELITIS, Charcot foot) Amputee, Fractures Endocrine: Yes Diabetes, Insulin dep HEENT: No (GLASSES) Loss of Vision: Bilateral Hearing Impairment: Denies Cancer: No Psychosocial: Yes Anxiety, Depression Integumentary: Yes (MRSA) Blood Disorders: Yes (HEP C+, ANEMIA) Adverse Reaction/Blood Tranf: No (HAS HAD BLOOD WITH NO REACTION ) (LATOYA CHRISTIANSEN APRN) Family Medical History FH: COPD (chronic obstructive pulmonary disease) 19 FATHER FH: congestive heart failure 19 FATHER FH: liver cancer 19 MOTHER No Pertinent Family Hx (LATOYA CHRISTIANSEN APRN) Physical Exam Vital Signs Vital Signs - First Documented 09/15/21 09/15/21 18:17 20:00 Temp 36.8 Pulse 89 Resp 18 B/P (MAP) 159/86 (110) Pulse Ox 97 O2 Delivery Room Air (MISSY,KAUSHAL K DO) Vital Signs Capillary Refill : (LATOYA CHRISTIANSEN APRN) Height, Weight, BMI Height: 5'7.00" Weight: 157lbs. 9.0oz. 71.193407dh; 138.00 BMI Method:Stated General Appearance: WD/WN, no apparent distress Neck: non-tender, full range of motion Respiratory: no respiratory distress, no accessory muscle use Hips: bilateral hip non-tender, bilateral hip normal inspection, bilateral hip normal range of motion Legs: bilateral leg non-tender, bilateral leg normal inspection, bilateral leg normal range of motion Knees: bilateral knee non-tender, bilateral knee normal inspection, bilateral knee normal range of motion Ankles: left ankle pain, left ankle soft tissue tenderness Feet: bilateral foot non-tender, bilateral foot normal inspection, bilateral foot normal range of motion Neurologic/Psychiatric: alert, normal mood/affect, oriented x 3 Skin: normal color, warm/dry (LATOYA CHRISTIANSEN APRN) Procedures/Interventions Dental Procedures: Dental I&D (LATOYA CHRISTIANSEN APRN) Progress/Results/Core Measures Results/Orders Vital Signs/I&O 09/15/21 09/15/21 18:17 20:00 Temp 36.8 36.8 Pulse 89 78 Resp 18 16 B/P (MAP) 159/86 (110) 139/87 Pulse Ox 97 98 O2 Delivery Room Air (MISSY,KAUSHAL K DO) Departure Communication (Admissions) NAME: HUONG ARANGO [facility] REC#: [id number] PT STATUS: REG ER : 1985 PHYSICIAN: LATOYA CHRISTIANSEN APRN ADMIT DATE: 09/15/21/ER Signed Date of Exam:09/15/21 FOOT, LEFT, 3 VIEWS INDICATION: Left foot pain. COMPARISON: 05/17/2021. EXAMINATION: Three views of the left foot. FINDINGS: Neuropathic joint which appears stable. Chronic fracture deformities that have healed are seen involving the 4th and 5th metatarsals. There is an acute appearing fracture involving the middle phalanx of the 3rd digit. No intra-articular involvement is seen. There is no radiopaque foreign body. IMPRESSION: Acute nondisplaced fracture involving the middle phalanx 3rd digit. Dictated by: Dictated on workstation # [id number] Dict: 09/15/211852 Trans: 09/15/211855 [facility] [id number] Interpreted by: WYATT STERLING Electronically signed by: WYATT STERLING 09/15/211855 (LATOYA CHRISTIANSEN APRN) Impression Primary Impression: Fracture of toe Additional Impression: Sprain or strain of foot Disposition: 01 HOME, SELF-CARE Condition: Stable Departure-Patient Inst. Decision time for Depature: 19:37 (LATOYA CHRISTIANSEN APRN) Referrals: [facility] [place] (PCP) Primary Care Physician DARIEN HAN APRN (Family) Primary Care Physician Patient Instructions: Foot Fracture ED Add. Discharge Instructions: 1. Wear the walking shoe as directed. Take the pain medication as directed. Follow-up with your doctor next week. All discharge instructions reviewed with patient and/or family. Voiced understanding. Scripts Hydrocodone/Acetaminophen (Hydrocodone-Acetamin 5-325 mg) 1 Each Tablet 1 TAB PO Q4H PRN for PAIN-MODERATE (5-7), #10 TAB Prov: LATOYA CHRISTIANSEN APRN 09/15/21 ATTENDING PHYSICIAN NOTE: I WAS PHYSICALLY PRESENT ER PHYSICIAN WHEN THIS PATIENT WAS IN ER, I WAS NOT INVOLVED IN ANY DECISION MAKING OR ANY CARE OF THIS PATIENT (KAUSHAL LOUIS DO) LATOYA CHRISTIANSEN APRN Sep 15, 2021 18:21 KAUSHAL LOUIS DO Sep 17, 2021 02:32
--- NOTE | 2021-09-15 18:56 | Diagnostic Imaging Report ---
INDICATION: Left foot pain. COMPARISON: 05/17/2021. EXAMINATION: Three views of the left foot. FINDINGS: Neuropathic joint which appears stable. Chronic fracture deformities that have healed are seen involving the 4th and 5th metatarsals. There is an acute appearing fracture involving the middle phalanx of the 3rd digit. No intra-articular involvement is seen. There is no radiopaque foreign body. IMPRESSION: Acute nondisplaced fracture involving the middle phalanx 3rd digit. Dictated by: Dictated on workstation # [id number]
[2021-09-15] MEDS ORDERED: ACHD5005 PO (19:40)
[2021-09-15 20:00] VITALS: BP 139/87
== END 2021-09-15 20:00 | disposition home or self-care (01) ==
LOC: EDUNIT# 18:04 → ER 18:07
DX: S92.525A Nondisplaced fracture of middle phalanx of left lesser toe(s), initial encounter for closed fracture (principal); I10 Essential (primary) hypertension; E11.9 Type 2 diabetes mellitus without complications; F32.9 Major depressive disorder, single episode, unspecified; F41.9 Anxiety disorder, unspecified; G40.909 Epilepsy, unspecified, not intractable, without status epilepticus; Z86.16 Personal history of COVID-19; Z79.4 Long term (current) use of insulin; Z79.899 Other long term (current) drug therapy; Z79.82 Long term (current) use of aspirin; W10.8XXA Fall (on) (from) other stairs and steps, initial encounter
CPT/HCPCS: 73630

== ENCOUNTER 2021-10-10 19:35 | Emergency (ER) | payer MEDICARE, MEDICAID ==
[2021-10-10] MEDS ORDERED: NS IV 500 ML 500 ML IV ONE (20:00)
[2021-10-10] MEDS ORDERED: PANTOPRAZOLE 40 MG (PROTONIX) VIAL IV ONE (20:00)
[2021-10-10] MEDS ORDERED: ONDANSETRON 4 MG/2 ML (SDV) Z0FRAN IVP ONE (20:00)
[2021-10-10] MEDS ORDERED: ASPIRIN 81 MG CHEW (CHILDREN'S ASA) PO ONE (20:00)
--- NOTE | 2021-10-10 20:06 | ED Chest Pain ---
General Stated Complaint: N/V Source: patient Exam Limitations: no limitations History of Present Illness Date Seen by Provider: Oct 10, 2021 Time Seen by Provider: 19:46 Initial Comments Patient to the ER by EMS from home with chief complaint of 3 days of nausea vomiting. She was told her potassium was a little high at her last dialysis on Sunday. She has not missed any dialyses. She she is eating a little and mostly drinking fluids. She has had a small bowel movement today. She is not having any abdominal pain but she is having some substernal low midline chest pain. No shortness of air or cough. She is having body aches. She has had high potassium in the past has made her feel weak and she feels weak and having falls in the last day. She skinned her left knee today. She is not had any nausea medicine. She has not been checked out for this. She has not had a Covid or influenza swab. Her blood sugar was 135 when she took a nap this evening when she woke up it was 265. She takes Lantus and 2 to 3 units of NovoLog with meals on a sliding scale. Allergies and Home Medications Allergies Coded Allergies: gluten (Verified Allergy, Unknown, 07/08/20) Patient Home Medication List Home Medication List Reviewed: Yes Amoxicillin (Amoxicillin) 500 Mg Tablet, 500 MG PO TID Prescribed by: LATOYA CHRISTIANSEN on 05/17/21 1741 Aspirin (Aspirin) 81 Mg Tab.chew, 81 MG PO DAILY, (Reported) Entered as Reported by: AMPARO FELDER on 07/08/20 1106 Azithromycin (Azithromycin) 250 Mg Tablet, 250 MG PO DAILY Prescribed by: OLAMIDE LOZADA on 02/23/21 1132 Buspirone HCl (Buspirone HCl) 10 Mg Tablet, 10 MG PO TID, (Reported) Entered as Reported by: AMPARO FELDER on 07/08/20 1106 Carvedilol (Carvedilol) 6.25 Mg Tablet, 6.25 MG PO BID, (Reported) Entered as Reported by: AMPARO FELDER on 07/08/20 1106 Cefdinir (Cefdinir) 300 Mg Capsule, 300 MG PO after dialysis Prescribed by: OLAMIDE LOZADA on 02/23/21 1132 Ciprofloxacin HCl (Ciprofloxacin HCl) 500 Mg Tablet, 500 MG PO BID Prescribed by: CURT ROBERTSON on 09/28/20 1226 Cyclobenzaprine HCl (Cyclobenzaprine HCl) 10 Mg Tablet, 10 MG PO TID PRN for MUSCLE SPASMS, (Reported) Entered as Reported by: KENZIE REYES on 09/30/18 0929 Escitalopram Oxalate (Lexapro) 20 Mg Tablet, 20 MG PO DAILY, (Reported) Entered as Reported by: AMPARO FELDER on 07/08/20 110 Furosemide (Furosemide) 80 Mg Tablet, 80 MG PO BID, (Reported) Entered as Reported by: AMPARO FELDER on 07/08/20 110 Gabapentin (Neurontin) 300 Mg Capsule, 300 MG PO TID, (Reported) Entered as Reported by: AMPARO FELDER on 07/08/20 110 Hydrocodone/Acetaminophen (Hydrocodone-Acetamin 5-325 mg) 1 Each Tablet, 1 TAB PO Q4H PRN for PAIN-MODERATE (5-7) Prescribed by: LATOYA CHRISTIANSEN on 09/15/211939 Hydroxyzine Pamoate (Vistaril) 25 Mg Capsule, 25 MG PO TID, (Reported) Entered as Reported by: AMPARO FELDER on 07/08/20 110 Insulin Glargine,Hum.rec.anlog (Lantus Solostar) 100 Unit/1 Ml Insuln.pen, 12 UNITS SC HS, (Reported) Entered as Reported by: KENZIE REYES on 09/30/18 09 Insulin Lispro (Humalog Kwikpen) 100 Unit/1 Ml Insuln.pen, UNITS SQ AC, (Reported) Entered as Reported by: ASHWIN FARR on 12/15/16 0859 Lisinopril (Lisinopril) 10 Mg Tablet, 10 MG PO DAILY, (Reported) Entered as Reported by: AMPARO FELDER on 07/08/20 110 Loperamide HCl (Anti-Diarrheal) 2 Mg Capsule, 2 MG PO PRN PRN for DIARRHEA Prescribed by: CURT ROBERTSON on 09/28/20 1226 Metronidazole (Metronidazole) 500 Mg Tablet, 500 MG PO BID Prescribed by: CURT ROBERTSON on 09/28/20 122 Nifedipine (Procardia Xl) 60 Mg Tab.er.24, 60 MG PO BID, (Reported) Entered as Reported by: JESSICA CONDON on 09/29/18 6722 Oxycodone HCl (Oxycodone HCl) 5 Mg Tablet, 5 MG PO Q6H Prescribed by: CLARIBEL CARY on 06/20/21 0958 Tramadol HCl (Tramadol HCl) 50 Mg Tablet, 50 MG PO TID, (Reported) Entered as Reported by: AMPARO FELDER on 07/08/20 1106 Tramadol HCl (Ultram) 50 Mg Tablet, 50 MG PO TID PRN for PAIN-MODERATE (5-7) Prescribed by: LATOYA CHRISTIANSEN on 05/17/21 1742 Trazodone HCl (Trazodone HCl) 100 Mg Tablet, 100 MG PO HS, (Reported) Entered as Reported by: AMPARO FELDER on 07/08/20 1106 Review of Systems Review of Systems Constitutional: No chills, No diaphoresis; malaise, weakness EENTM: No Blurred Vision, No Double Vision Respiratory: Denies Cough, Denies Shortness of Air Cardiovascular: See HPI, Chest Pain; Denies Edema Gastrointestinal: Denies Abdomen Distended, Denies Abdominal Pain, Denies Constipated, Denies Diarrhea; Nausea, Poor Appetite, Poor Fluid Intake, Vomiting Genitourinary: Denies Burning, Denies Discharge Musculoskeletal: No back pain, No joint pain Skin: No pruritus, No rash Psychiatric/Neurological: Denies Headache, Denies Numbness, Denies Paresthesia All Other Systems Reviewed Negative Unless Noted: Yes Past Xtbszqa-Tvkudc-Vjqjaw Hx Patient Social History Tobacco Use?: Yes Tobacco type used: Cigarettes Use of E-Cig and/or Vaping dev: No Substance use?: No Alcohol Use?: No Immunizations Up To Date Tetanus Booster (TDap): Less than 5yrs PED Vaccines UTD: No First/Initial COVID19 Vaccinat: no Second COVID19 Vaccination Williams: no Seasonal Allergies Seasonal Allergies: No Past Medical History Surgery/Hospitalization HX: sx: dialysis fistula l arm, 3 c-sec, open heart sx, r toe ampuations x 2 pmh: dialysis, dm-insulin, heart disease. 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 Sexually Transmitted Disease: No HIV/AIDS: No Genitourinary: Yes Bladder Infection, Renal Failure, Dialysis, UTI-Chronic Gastrointestinal: Yes (CELIAC DISEASE; HEPATITIS C--NO TREATMENT) Hepatitis Musculoskeletal: Yes (RIGH T2ND/3RD TOES AMPUTATED DUE TO OSTEOMYELITIS, Charcot foot) Amputee, Fractures Endocrine: Yes Diabetes, Insulin dep HEENT: No (GLASSES) Loss of Vision: Bilateral Hearing Impairment: Denies Cancer: No Psychosocial: Yes Anxiety, Depression Integumentary: Yes (MRSA) Blood Disorders: Yes (HEP C+, ANEMIA) Adverse Reaction/Blood Tranf: No (HAS HAD BLOOD WITH NO REACTION ) Family Medical History FH: COPD (chronic obstructive pulmonary disease) 19 FATHER FH: congestive heart failure 19 FATHER FH: liver cancer 19 MOTHER No Pertinent Family Hx Physical Exam Vital Signs Vital Signs - First Documented 10/10/21 19:35 Temp 36.2 Pulse 80 Resp 22 B/P (MAP) 137/87 (104) Pulse Ox 99 O2 Delivery Room Air Capillary Refill : Height, Weight, BMI Height: 5'7.00" Weight: 157lbs. 9.0oz. 71.952144tq; 22.00 BMI Method:Stated General Appearance: No Apparent Distress, WD/WN HEENT: PERRL/EOMI, TMs Normal, Normal ENT Inspection; No Pharynx Normal, No Moist Mucous Membranes Neck: Full Range of Motion, Normal Inspection Respiratory: Chest Non Tender, Lungs Clear, Normal Breath Sounds, No Accessory Muscle Use, No Respiratory Distress Cardiovascular: Regular Rate, Rhythm, No Edema, Normal Peripheral Pulses Gastrointestinal: Normal Bowel Sounds, Non Tender, Soft Extremity: Normal Capillary Refill, Normal Inspection, No Pedal Edema Neurologic/Psychiatric: Alert, Oriented x3, No Motor/Sensory Deficits, Other (Anxious affect) Skin: Normal Color, Warm/Dry Procedures/Interventions Dental Procedures: Dental I&D Progress/Results/Core Measures Results/Orders Lab Results Laboratory Tests Test 10/10/21 20:00 10/10/21 20:14 10/10/21 22:39 10/10/21 23:59 Range/Units Influenza Type A Antigen NEGATIVE NEGATIVE Influenza Type B Antigen NEGATIVE NEGATIVE SARS-CoV-2 RNA (RT-PCR) Not Detected Negative White Blood Count 9.7 4.3-11.0 10^3/uL Red Blood Count 3.60 L 3.80-5.11 10^6/uL Hemoglobin 11.1 L 11.5-16.0 g/dL Hematocrit 34 L 35-52 % Mean Corpuscular Volume 93 80-99 fL Mean Corpuscular Hemoglobin 31 25-34 pg Mean Corpuscular Hemoglobin Concent 33 32-36 g/dL Red Cell Distribution Width 14.0 10.0-14.5 % Platelet Count 268 130-400 10^3/uL Mean Platelet Volume 11.6 9.0-12.2 fL Immature Granulocyte % (Auto) 1 % Neutrophils (%) (Auto) 63 42-75 % Lymphocytes (%) (Auto) 21 12-44 % Monocytes (%) (Auto) 12 0-12 % Eosinophils (%) (Auto) 3 0-10 % Basophils (%) (Auto) 1 0-10 % Neutrophils # (Auto) 6.1 1.8-7.8 10^3/uL Lymphocytes # (Auto) 2.0 1.0-4.0 10^3/uL Monocytes # (Auto) 1.1 H 0.0-1.0 10^3/uL Eosinophils # (Auto) 0.3 0.0-0.3 10^3/uL Basophils # (Auto) 0.1 0.0-0.1 10^3/uL Immature Granulocyte # (Auto) 0.1 0.0-0.1 10^3/uL Sodium Level 127 L 135-145 MMOL/L Potassium Level 8.4 *H 7.7 *H 3.6-5.0 MMOL/L Chloride Level 85 L 98-107 MMOL/L Carbon Dioxide Level 15 L 21-32 MMOL/L Anion Gap 27 H 5-14 MMOL/L Blood Urea Nitrogen 103 *H 7-18 MG/DL Creatinine 13.66 H 0.60-1.30 MG/DL Estimat Glomerular Filtration Rate 3 BUN/Creatinine Ratio 8 Glucose Level 325 H 70-105 MG/DL Glucometer 308 H 467 *H 70-110 MG/DL Calcium Level 9.3 8.5-10.1 MG/DL Corrected Calcium 9.1 8.5-10.1 MG/DL Magnesium Level 3.2 H 1.6-2.4 MG/DL Total Bilirubin 0.5 0.1-1.0 MG/DL Aspartate Amino Transf (AST/SGOT) 13 5-34 U/L Alanine Aminotransferase (ALT/SGPT) 18 0-55 U/L Alkaline Phosphatase 107 40-136 U/L Troponin I < 0.028 < 0.028 <0.028 NG/ML C-Reactive Protein High Sensitivity 0.54 H 0.00-0.50 MG/DL Total Protein 8.3 H 6.4-8.2 GM/DL Albumin 4.2 3.2-4.5 GM/DL Test 10/11/21 00:35 10/11/21 02:18 Range/Units Glucometer 393 H 268 H 70-110 MG/DL My Orders Orders - OLAMIDE LOZADA Ondansetron Injection (Zofran Injectio (10/10/21 20:00) Ed Iv/Invasive Line Start (10/10/21 19:50) Ns Iv 500 Ml (Sodium Chloride 0.9%) (10/10/21 20:00) Cbc With Automated Diff (10/10/21 19:50) Comprehensive Metabolic Panel (10/10/21 19:50) Magnesium (10/10/21 19:50) Hs C Reactive Protein (10/10/21 19:50) Troponin I Garrett (10/10/21 19:50) Ekg Tracing (10/10/21 19:50) Continuous Ekg Monitoring (10/10/21 19:50) Accucheck Stat ONCE (10/10/21 19:50) Chest 1 View, Ap/Pa Only (10/10/21 19:50) Pantoprazole Injection (Protonix Injecti (10/10/21 20:00) Aspirin Chewable Tablet (Baby Aspirin Ch (10/10/21 20:00) Coronavirus Sars-Cov-2 So 2018 (10/10/21 19:54) Influenza A & B Antigens (10/10/21 19:54) Covid 19 Inhouse Test (10/10/21 20:00) Lorazepam Tablet (Ativan Tablet) (10/10/21 20:30) Insulin (Regular) Human (Novolin R (Per (10/10/21 21:00) Fentanyl Inj (Sublimaze Injection) (10/10/21 21:30) Calcium Gluconate 10% Inj (Calcium Glu (10/10/21 21:30) D5 Ns 1000 Ml Iv Solution (Dextrose 5%/0 (10/10/21 21:30) Insulin (Regular) Human (Novolin R (Per (10/10/21 21:30) D50w (Emergency) Syringe (Dextrose 50% 5 (10/10/21 21:30) Accucheck Stat ONCE (10/10/21 22:14) Continuous Ekg Monitoring (10/10/21 22:14) Ekg Tracing (10/10/21 22:14) Troponin I Garrett (10/10/21 23:59) Insulin (Regular) Human (Novolin R (Per (10/10/21 22:45) Potassium (10/10/21 23:59) Insulin (Regular) Human (Novolin R (Per (10/10/21 23:00) Lorazepam Tablet (Ativan Tablet) (10/10/21 22:59) Accucheck Stat ONCE (10/11/21 00:34) Accucheck Stat ONCE (10/11/21 00:34) Morphine Injection (Morphine Injection (10/11/21 00:50) Accucheck Stat ONCE (10/11/21 02:00) Accucheck Stat ONCE (10/11/21 05:30) Medications Given in ED Current Medications Medications Dose Ordered Sig/Dipti Route Start Time Stop Time Status Last Admin Dose Admin Aspirin 324 mg ONCE ONCE PO 10/10/21 20:00 10/10/21 20:01 DC 10/10/21 21:57 324 MG Calcium Gluconate 4.65 meq ONCE ONCE IV 10/10/21 21:30 10/10/21 21:33 DC 10/10/21 21:58 4.65 MEQ Dextrose 50 ml ONCE ONCE IV 10/10/21 21:30 10/10/21 21:33 DC 10/10/21 21:57 50 ML Dextrose/Sodium Chloride 1,000 ml @ 100 mls/hr Q10H ONCE IV 10/10/21 21:30 10/11/21 07:29 10/10/21 22:02 100 MLS/HR Fentanyl Citrate 25 mcg ONCE ONCE IVP 2/7/22 21:30 10/10/21 21:31 DC 10/10/21 21:58 25 MCG Insulin Human Regular 5 unit ONCE ONCE SC 10/10/21 23:00 10/10/21 23:01 DC 10/10/21 23:04 5 UNIT Insulin Human Regular 10 unit ONCE ONCE SC 10/10/21 21:30 10/10/21 21:33 DC 10/10/21 22:02 10 UNIT Lorazepam 0.5 mg ONCE ONCE PO 10/10/21 20:30 10/10/21 20:31 DC 10/10/21 23:01 0.5 MG Ondansetron HCl 4 mg ONCE ONCE IVP 10/10/21 20:00 10/10/21 20:01 DC 10/10/21 20:18 4 MG Pantoprazole 40 mg ONCE ONCE IV 10/10/21 20:00 10/10/21 20:01 DC 10/10/21 20:18 40 MG Sodium Chloride 500 ml @ 0 mls/hr Q0M ONCE IV 10/10/21 20:00 10/10/21 20:01 DC 10/10/21 20:17 999 MLS/HR Vital Signs/I&O 10/10/21 19:35 Temp 36.2 Pulse 80 Resp 22 B/P (MAP) 137/87 (104) Pulse Ox 99 O2 Delivery Room Air 10/11/21 00:00 Intake Total 500 ml Balance 500 ml Progress Progress Note #1: Time: 20:04 Progress Note Patient denies a history of coronary disease but she has all the risk factors of diabetes, hypertension, smoking. We will check some labs as her weakness could be from a elevated potassium. Her T waves on the EKG are quite tented and high amplitude. We will start with 500 bag of fluids for her mild dehydration on clinical exam. We will give her an aspirin and get a chest x-ray labs including a troponin looking for evidence of coronary disease. Zofran for her nausea. Swab her for Covid and flu. Aseptic vital signs, nonsurgical abdomen. Progress Note #2: Time: 21:34 Progress Note Potassium came back over 8. She is on dialysis scheduled tomorrow. She is taking oral potassium chelator. She is complaining of body aches we will give her some fentanyl. We will give her a D50 amp and 10 of regular insulin subcu. We will also put her on a D5 at 100 mL an hour, normal saline. We will give her IV calcium gluconate and see if her EKG improves after these interventions. Progress Note #3: Time: 22:55 Progress Note Repeat blood glucose over 400. Patient took her insulin glargine as scheduled. Patient refused to take any more regular insulin at this time. We will repeat a troponin and potassium at midnight. Repeat Accu-Chek and a half an hour. Progress Note #4: Time: 03:26 Progress Note Patient required a little morphine after couple hours the fentanyl had worn off so we gave her 2 mg. She is still getting her D5 saline and her rhythm and symptoms are significantly improved. We will repeat an Accu-Chek at 5. Plan is to get her a cab ride to her dialysis center this morning at 6 so she can get her potassium levels normalized. Patient is okay with this plan and is feeling significantly better. She did get 1/2 mg tablet of Ativan which helped significantly with her anxiety and she has been up to the bathroom and urinated as well as resting comfortably. Initial ECG Impression Date: Oct 10, 2021 Initial ECG Impression Time: 19:53 Initial ECG Rate: 83 Initial ECG Rhythm: Normal Sinus Initial ECG Intervals: QT (554) Initial ECG Impression: Normal, Nonspecific Changes Initial ECG Comparisson: Changed Comment Prominent T waves greater amplitude than the QRS. No clinically relevant ST changes. EKG : EKG Time: 22:38 Rate: 86 Rhythm: Normal Sinus Intervals: Normal ECG Comparisson: Unchanged ECG Impression: Normal Comment Sinus rhythm with borderline prolonged CO interval, QTC now 479 ms. The T waves are much lower amplitude and are now at or less than the amplitude of the QRS. Diagnostic Imaging Diagonstic Imaging: Xray Plain Films/CT/US/NM/MRI: chest Comments [facility], [facility]. [place], [place] NAME: HUONG ARANGO [facility] REC#: [id number] PT STATUS: REG ER : 1985 PHYSICIAN: OLAMIDE LOZADA MD ADMIT DATE: 10/10/21/ER Draft Date of Exam:10/10/21 CHEST 1 VIEW, AP/PA ONLY INDICATION: Chest pain EXAMINATION: Chest 10/10/2021 COMPARISON: 02/23/2021 FINDINGS: The cardiomediastinal silhouette is unremarkable. The pulmonary vasculature is within normal limits. The lungs and pleural spaces are clear. IMPRESSION: No evidence of an acute cardiopulmonary process. Dictated on workstation # [id number] Dict: 10/10/212038 Trans: 10/10/212041 GREGORIO [id number] Interpreted by: SONALI MOORE MD Electronically signed by: Reviewed: Reviewed by Me Departure Impression Primary Impression: Hyperkalemia Additional Impressions: Cardiac dysrhythmia, unspecified Gastroenteritis Hyperglycemia due to diabetes mellitus Disposition: HOME, SELF-CARE Condition: Improved Departure-Patient Inst. Decision time for Depature: 05:45 Referrals: [facility]/ (PCP) Primary Care Physician DARIEN HAN APRN (Family) Primary Care Physician Patient Instructions: Hyperkalemia OLAMIDE LOZADA Oct 10, 2021 20:06
[2021-10-10 20:21] LABS: BASOPHILS # (AUTO) 0.1 10^3/uL (0.0-0.1); BASOPHILS % (AUTO) 1 % (0-10); EOSINOPHILS # (AUTO) 0.3 10^3/uL (0.0-0.3); EOSINOPHILS % (AUTO) 3 % (0-10); HEMATOCRIT 34 % (35-52); HEMOGLOBIN 11.1 g/dL (11.5-16.0); LYMPHOCYTES % (AUTO) 21 % (12-44); MEAN CORPUSCULAR HEMOGLOBIN 31 pg (25-34); MEAN CORPUSCULAR HGB CONC 33 g/dL (32-36); MEAN CORPUSCULAR VOLUME 93 fL (80-99); MEAN PLATELET VOLUME 11.6 fL (9.0-12.2); MONOCYTES # (AUTO) 1.1 10^3/uL (0.0-1.0); MONOCYTES % (AUTO) 12 % (0-12); NEUTROPHILS # (AUTO) 6.1 10^3/uL (1.8-7.8); NEUTROPHILS % (AUTO) 63 % (42-75); PLATELET COUNT 268 10^3/uL (130-400); WHITE BLOOD COUNT 9.7 10^3/uL (4.3-11.0)
[2021-10-10] MEDS ORDERED: LORazepam 0.5 MG (ATIVAN) TABLET PO ONE (20:30)
--- NOTE | 2021-10-10 20:42 | Diagnostic Imaging Report ---
INDICATION: Chest pain EXAMINATION: Chest 10/10/2021 COMPARISON: 02/23/2021 FINDINGS: The cardiomediastinal silhouette is unremarkable. The pulmonary vasculature is within normal limits. The lungs and pleural spaces are clear. IMPRESSION: No evidence of an acute cardiopulmonary process. Dictated by: Dictated on workstation # [id number]
[2021-10-10 20:43] LABS: ALANINE AMINOTRANSFERASE 18 U/L (0-55); ALBUMIN 4.2 GM/DL (3.2-4.5); ALKALINE PHOSPHATASE 107 U/L (40-136); BILIRUBIN,TOTAL 0.5 MG/DL (0.1-1.0); BUN/CREATININE RATIO 8; CALCIUM 9.3 MG/DL (8.5-10.1); CARBON DIOXIDE 15 MMOL/L (21-32); CHLORIDE 85 MMOL/L (98-107); CREATININE SERUM 13.66 MG/DL (0.60-1.30); GFR ESTIMATED 3; GLUCOSE 325 MG/DL (70-105); MAGNESIUM 3.2 MG/DL (1.6-2.4); SODIUM 127 MMOL/L (135-145); TOTAL PROTEIN 8.3 GM/DL (6.4-8.2)
[2021-10-10] MEDS ORDERED: inSUlin (REGULAR) HUMAN 1 UNIT/0.01 ML (CHARGE PER UNIT) SC ONE ×4 (21:00→23:00)
[2021-10-10 21:28] LABS: POTASSIUM 8.4 MMOL/L (3.6-5.0)
[2021-10-10] MEDS ORDERED: D5 NS 1000 ML IV SOLUTION 1,000 ML IV ONE (21:30)
[2021-10-10] MEDS ORDERED: DEXTROSE 50% 50 ML (IMS) SYR IV ONE (21:30)
[2021-10-10] MEDS ORDERED: fentaNYL INJ 100 MCG/2 ML AMP IVP ONE (21:30)
[2021-10-10] MEDS ORDERED: CALCIUM GLUC. 10% 4.65 MEQ/10 ML VIAL IV ONE (21:30)
[2021-10-10] MEDS ORDERED: LORazepam 0.5 MG (ATIVAN) TABLET ONE (22:59)
[2021-10-11 00:29] LABS: POTASSIUM 7.7 MMOL/L (3.6-5.0)
[2021-10-11] MEDS ORDERED: morphine INJ 10 MG/ML 1ML (SYR OR VIAL) IVP STA (00:50)
[2021-10-11] MEDS ORDERED: HYDROcodone/APAP 5 MG/325 MG (LORTAB) TAB PO ONE (05:30)
[2021-10-11 05:48] VITALS: BP 132/75
== END 2021-10-11 05:48 | disposition home or self-care (01) ==
LOC: EDUNIT# 19:35 → ER 19:36
DX: E87.5 Hyperkalemia (principal); I49.9 Cardiac arrhythmia, unspecified; K52.9 Noninfective gastroenteritis and colitis, unspecified; E11.65 Type 2 diabetes mellitus with hyperglycemia; G40.909 Epilepsy, unspecified, not intractable, without status epilepticus; I10 Essential (primary) hypertension; F41.9 Anxiety disorder, unspecified; F32.9 Major depressive disorder, single episode, unspecified; Z72.0 Tobacco use; Z20.822 Contact with and (suspected) exposure to COVID-19; Z79.4 Long term (current) use of insulin; Z79.82 Long term (current) use of aspirin; Z79.899 Other long term (current) drug therapy
CPT/HCPCS: 36415; 71045; 80053; 82947; 83735; 84132; 84484; 85025; 86141; 87635; 87636; 87804; 93005

== ENCOUNTER 2021-10-14 20:04 | Emergency (ER) | payer MEDICARE, MEDICAID ==
[~2021-10-14] VITALS: Ht 170 cm; Wt 61.0 kg
[2021-10-14 20:18] VITALS: BP 144/102
[2021-10-14] MEDS ORDERED: NAPR-1071 PO (20:38)
[2021-10-14] MEDS ORDERED: CLIN-144 PO (20:38)
--- NOTE | 2021-10-14 20:40 | ED EENT ---
History of Present Illness General Chief Complaint: Dental Problems/Pain Stated Complaint: ABCESS TOOTH Nursing Triage Note: PT AMB TO ED BY POV WITH C/O DENTAL PAIN. PT REPORTS PAIN IN L UPPER CANINE TOOTH BEGINNING THIS MORENING, REPORTS THERE WAS A BLISTER ABOVE THE TOOTH THAT DRAINED. DENIES FEVER, N/V/D. Source: patient Exam Limitations: no limitations (LATOYA CHRISTIANSEN APRN) History of Present Illness Date Seen by Provider: Oct 14, 2021 Time Seen by Provider: 20:34 Initial Comments To ER by private vehicle with left upper dental pain for a few days. She states there was a blister above the left upper canine but it started to drain. She is complaining of pain. She is already got a prescription for tramadol. No fevers or chills. Timing/Duration: abrupt Severity: moderate Prearrival Treatment: no prearrival treatment Associated Symptoms: denies symptoms, tooth pain (LATOYA CHRISTIANSEN APRN) Allergies and Home Medications Allergies Coded Allergies: gluten (Verified Allergy, Unknown, 07/08/20) Patient Home Medication List Home Medication List Reviewed: Yes (LATOYA CHRISTIANSEN APRN) Amoxicillin (Amoxicillin) 500 Mg Tablet, 500 MG PO TID Prescribed by: LATOYA CHRISTIANSEN on 05/17/21 1741 Aspirin (Aspirin) 81 Mg Tab.chew, 81 MG PO DAILY, (Reported) Entered as Reported by: AMPARO FELDER on 07/08/20 1106 Azithromycin (Azithromycin) 250 Mg Tablet, 250 MG PO DAILY Prescribed by: OLAMIDE LOZADA on 02/23/21 1132 Buspirone HCl (Buspirone HCl) 10 Mg Tablet, 10 MG PO TID, (Reported) Entered as Reported by: AMPARO FELDER on 07/08/20 1106 Carvedilol (Carvedilol) 6.25 Mg Tablet, 6.25 MG PO BID, (Reported) Entered as Reported by: AMPARO FELDER on 07/08/20 1106 Cefdinir (Cefdinir) 300 Mg Capsule, 300 MG PO after dialysis Prescribed by: OLAMIDE LOZADA on 02/23/21 1132 Ciprofloxacin HCl (Ciprofloxacin HCl) 500 Mg Tablet, 500 MG PO BID Prescribed by: CURT ROBERTSON on 09/28/20 1226 Clindamycin HCl (Clindamycin HCl) 300 Mg Capsule, 300 MG PO TID Prescribed by: LATOYA CHRISTIANSEN on 10/14/212037 Cyclobenzaprine HCl (Cyclobenzaprine HCl) 10 Mg Tablet, 10 MG PO TID PRN for MUSCLE SPASMS, (Reported) Entered as Reported by: KENZIE REYES on 09/30/18928 Escitalopram Oxalate (Lexapro) 20 Mg Tablet, 20 MG PO DAILY, (Reported) Entered as Reported by: AMPARO FELDER on 07/08/201105 Furosemide (Furosemide) 80 Mg Tablet, 80 MG PO BID, (Reported) Entered as Reported by: AMPARO FELDER on 07/08/201105 Gabapentin (Neurontin) 300 Mg Capsule, 300 MG PO TID, (Reported) Entered as Reported by: AMPARO FELDER on 07/08/201105 Hydrocodone/Acetaminophen (Hydrocodone-Acetamin 5-325 mg) 1 Each Tablet, 1 TAB PO Q4H PRN for PAIN-MODERATE (5-7) Prescribed by: LATOYA CHRISTIANSEN on 09/15/211939 Hydroxyzine Pamoate (Vistaril) 25 Mg Capsule, 25 MG PO TID, (Reported) Entered as Reported by: AMPARO FELDER on 07/08/201105 Insulin Glargine,Hum.rec.anlog (Lantus Solostar) 100 Unit/1 Ml Insuln.pen, 12 UNITS SC HS, (Reported) Entered as Reported by: KENZIE REYES on 09/30/18928 Insulin Lispro (Humalog Kwikpen) 100 Unit/1 Ml Insuln.pen, UNITS SQ AC, (Reported) Entered as Reported by: ASHWIN FARR on 12/15/16 0859 Lisinopril (Lisinopril) 10 Mg Tablet, 10 MG PO DAILY, (Reported) Entered as Reported by: AMPARO FELDER on 07/08/201105 Loperamide HCl (Anti-Diarrheal) 2 Mg Capsule, 2 MG PO PRN PRN for DIARRHEA Prescribed by: CURT ROBERTSON on 09/28/20 1226 Metronidazole (Metronidazole) 500 Mg Tablet, 500 MG PO BID Prescribed by: CURT ROBERTSON on 09/28/20 1226 Naproxen (Naprosyn) 500 Mg Tablet, 500 MG PO BID PRN for PAIN-SEVERE (8-10) Prescribed by: LATOYA CHRISTIANSEN on 10/14/21 203 Nifedipine (Procardia Xl) 60 Mg Tab.er.24, 60 MG PO BID, (Reported) Entered as Reported by: JESSICA CONDON on 09/29/18 2358 Oxycodone HCl (Oxycodone HCl) 5 Mg Tablet, 5 MG PO Q6H Prescribed by: CLARIBEL CARY on 06/20/21 0958 Tramadol HCl (Tramadol HCl) 50 Mg Tablet, 50 MG PO TID, (Reported) Entered as Reported by: AMPARO FELDER on 07/08/20 1106 Tramadol HCl (Ultram) 50 Mg Tablet, 50 MG PO TID PRN for PAIN-MODERATE (5-7) Prescribed by: LATOYA CHRISTIANSEN on 05/17/21 1742 Trazodone HCl (Trazodone HCl) 100 Mg Tablet, 100 MG PO HS, (Reported) Entered as Reported by: AMPARO FELDER on 07/08/20 1106 Review of Systems Review of Systems Constitutional: see HPI Eyes: No Symptoms Reported Ears: No Symptoms Reported Nose: no symptoms reported Mouth: see HPI, pain, swelling (Swelling above the left upper canine. No significant swelling of the maxilla.) Throat: no symptoms reported Respiratory: no symptoms reported Cardiovascular: no symptoms reported Musculoskeletal: no symptoms reported Skin: no symptoms reported Neurological: No Symptoms Reported (LATOYA CHRISTIANSEN APRN) Past [place]-Whrxcl-Kovggh Hx Patient Social History Tobacco Use?: Yes Tobacco type used: Cigarettes Smoking Status: Current Everyday Smoker Use of E-Cig and/or Vaping dev: No Substance use?: No Alcohol Use?: No Pt feels they are or have been: No (LATOYA CHRISTIANSEN APRN) Immunizations Up To Date Tetanus Booster (TDap): Less than 5yrs PED Vaccines UTD: No Influenza Vaccine Up-to-Date: Yes; Up-to-Date First/Initial COVID19 Vaccinat: n/a Second COVID19 Vaccination Williams: no (LATOYA CHRISTIANSEN APRN) Seasonal Allergies Seasonal Allergies: No (LATOYA CHRISTIANSEN APRN) Past Medical History Surgery/Hospitalization HX: sx: dialysis fistula l arm, 3 c-sec, open heart sx, r toe ampuations x 2 pmh: dialysis, dm-insulin, heart disease. 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: Tubal Ligation Sexually Transmitted Disease: No HIV/AIDS: No Genitourinary: Yes Bladder Infection, Renal Failure, Dialysis, UTI-Chronic Gastrointestinal: Yes (CELIAC DISEASE; HEPATITIS C--NO TREATMENT) Hepatitis Musculoskeletal: Yes (RIGH T2ND/3RD TOES AMPUTATED DUE TO OSTEOMYELITIS, Charcot foot) Amputee, Fractures Endocrine: Yes Diabetes, Insulin dep HEENT: No (GLASSES) Loss of Vision: Bilateral Hearing Impairment: Denies Cancer: No Psychosocial: Yes Anxiety, Depression Integumentary: Yes (MRSA) Blood Disorders: Yes (HEP C+, ANEMIA) Adverse Reaction/Blood Tranf: No (HAS HAD BLOOD WITH NO REACTION ) (LATOYA CHRISTIANSEN APRN) Family Medical History FH: COPD (chronic obstructive pulmonary disease) 19 FATHER FH: congestive heart failure 19 FATHER FH: liver cancer 19 MOTHER No Pertinent Family Hx (LATOYA CHRISTIANSEN APRN) Physical Exam Vital Signs Vital Signs - First Documented 10/14/21 20:18 Temp 35.9 Pulse 84 Resp 18 B/P (MAP) 144/102 (116) Pulse Ox 97 O2 Delivery Room Air (CHAUNCEY ALCANTARA MD) Height, Weight, BMI Height: 5'7.00" Weight: 157lbs. 9.0oz. [id number]; 21.00 BMI Method:Stated General Appearance: WD/WN, no apparent distress Eyes: bilateral eye normal inspection, bilateral eye PERRL, bilateral eye EOMI Ears: bilateral ear auricle normal, bilateral ear canal normal, bilateral ear TM normal Mouth/Throat: normal mouth inspection, pharynx normal Neck: non-tender, full range of motion Respiratory: no respiratory distress, no accessory muscle use Gastrointestinal: normal bowel sounds, non tender Neurologic/Psychiatric: alert, normal mood/affect, oriented x 3 Skin: normal color, warm/dry (LATOYA CHRISTIANSEN APRN) Procedures/Interventions Dental Procedures: Dental I&D (LTAOYA CHRISTIANSEN APRN) Progress/Results/Core Measures Results/Orders Medications Given in ED Current Medications Medications Dose Ordered Sig/Dipti Route Start Time Stop Time Status Last Admin Dose Admin Clindamycin HCl 300 mg ONCE ONCE PO 10/14/21 20:45 10/14/21 20:46 DC 10/14/21 20:44 300 MG (CHAUNCEY ALCANTARA MD) Vital Signs/I&O 10/14/21 20:18 Temp 35.9 Pulse 84 Resp 18 B/P (MAP) 144/102 (116) Pulse Ox 97 O2 Delivery Room Air (CHAUNCEY ALCANTARA MD) Blood Pressure Mean: 116 Departure Communication (Admissions) I did offer her an injection of short or long-acting local anesthetic. She declined. Advised her to continue her tramadol. I will add an anti- inflammatory and an antibiotic. (LATOYA CHRISTIANSEN APRN) Impression Primary Impression: Dental abscess Disposition: HOME, SELF-CARE Condition: Stable Departure-Patient Inst. Decision time for Depature: 20:36 (LATOYA CHRISTIANSEN APRN) Referrals: [facility] [place]) Primary Care Physician DARIEN HAN APRN (Family) Primary Care Physician Patient Instructions: Tooth Abscess ED Add. Discharge Instructions: 1. Continue the tramadol. Add the anti-inflammatory as directed and the antibiotic. Follow-up with your dentist soon as possible on Sunday. All discharge instructions reviewed with patient and/or family. Voiced understanding. Scripts Naproxen (Naprosyn) 500 Mg Tablet 500 MG PO BID PRN for PAIN-SEVERE (8-10), #10 TAB 0 Refills Prov: LATOYA CHRISTIANSEN APRN 10/14/21 Clindamycin HCl (Clindamycin HCl) 300 Mg Capsule 300 MG PO TID, #21 CAP Prov: LATOYA CHRISTIANSEN APRN 10/14/21 ATTENDING PHYSICIAN NOTE: I was physically present as attending physician in the emergency department during the care of this patient, but I was not directly involved in the decision making or delivery of care for this patient. (CHAUNCEY ALCANTARA MD) LATOYA CHRISTIANSEN APRN Oct 14, 2021 20:39 CHAUNCEY ALCANTARA MD Oct 14, 2021 21:04
[2021-10-14] MEDS ORDERED: CLINDAMYCIN 150 MG (CLEOCIN) CAP PO ONE (20:45)
== END 2021-10-14 21:22 | disposition home or self-care (01) ==
LOC: EDUNIT# 20:04 → ER 20:07
DX: K04.7 Periapical abscess without sinus (principal); I10 Essential (primary) hypertension; E11.40 Type 2 diabetes mellitus with diabetic neuropathy, unspecified; G40.909 Epilepsy, unspecified, not intractable, without status epilepticus; F41.9 Anxiety disorder, unspecified; F32.A Depression, unspecified; F17.210 Nicotine dependence, cigarettes, uncomplicated; Z79.4 Long term (current) use of insulin; Z79.899 Other long term (current) drug therapy
CPT/HCPCS: 99283

== ENCOUNTER 2021-11-05 15:43 | Emergency (ER) | payer MEDICARE, MEDICAID ==
[~2021-11-05] VITALS: Ht 170.2 cm; Wt 67.0 kg
[2021-11-05] MEDS ORDERED: LIDOCAINE DRIP 500 ML IV ONE (15:46)
[2021-11-05] MEDS ORDERED: DEXTROSE 50% 50 ML (IMS) SYR INJ ONE (15:46)
[2021-11-05] MEDS ORDERED: CALCIUM CHLORIDE 10% 1000 MG/10 ML VIAL IV ONE (15:46)
[2021-11-05] MEDS ORDERED: RT-ALBUTEROL SULF 2.5 MG/3 ML PRE-MIX VIAL INH STA (15:54)
[2021-11-05] MEDS ORDERED: CALC GLUC 1 GM/100 ML IVPB 100 ML IV ONE (16:00)
[2021-11-05 16:04] LABS: BASOPHILS # (AUTO) 0.1 10^3/uL (0.0-0.1); BASOPHILS % (AUTO) 1 % (0-10); EOSINOPHILS # (AUTO) 0.2 10^3/uL (0.0-0.3); EOSINOPHILS % (AUTO) 2 % (0-10); HEMATOCRIT 31 % (35-52); HEMOGLOBIN 10.1 g/dL (11.5-16.0); LYMPHOCYTES # (AUTO) 3.3 X 10^3 (1.0-4.0); LYMPHOCYTES % (AUTO) 32 % (12-44); MEAN CORPUSCULAR HEMOGLOBIN 32 pg (25-34); MEAN CORPUSCULAR HGB CONC 32 g/dL (32-36); MEAN CORPUSCULAR VOLUME 98 fL (80-99); MONOCYTES # (AUTO) 1.2 X 10^3 (0.0-1.0); MONOCYTES % (AUTO) 12 % (0-12); NEUTROPHILS # (AUTO) 5.3 X 10^3 (1.8-7.8); NEUTROPHILS % (AUTO) 52 % (42-75); PLATELET COUNT 269 10^3/uL (130-400); WHITE BLOOD COUNT 10.1 10^3/uL (4.3-11.0)
[2021-11-05] MEDS ORDERED: ONDANSETRON 4 MG/2 ML (SDV) Z0FRAN ONE (16:07)
[2021-11-05] MEDS ORDERED: LIDOCAINE 1% INJ 50 ML (XYLOCAINE) VIAL ONE (16:08)
[2021-11-05 16:11] LABS: ALBUMIN 4.4 GM/DL (3.2-4.5)
[2021-11-05 16:13] LABS: CALCIUM 10.1 MG/DL (8.5-10.1)
[2021-11-05 16:14] LABS: PROTHROMBIN TIME PATIENT 13.8 SEC (12.2-14.7); TOTAL PROTEIN 8.3 GM/DL (6.4-8.2)
[2021-11-05] MEDS ORDERED: NS IV 500 ML 500 ML ONE (16:15)
[2021-11-05 16:16] LABS: BILIRUBIN,TOTAL 0.4 MG/DL (0.1-1.0)
[2021-11-05] MEDS ORDERED: PROMETHAZINE INJ 25 MG/ML (PHENERGAN) AMP ONE (16:16)
[2021-11-05 16:18] LABS: CREATININE SERUM 9.58 MG/DL (0.60-1.30)
[2021-11-05] MEDS ORDERED: inSUlin ASPART (NovoLOG) 1 UNIT/0.01 ML (CHARGE PER UNIT) ONE (16:18)
[2021-11-05] MEDS ORDERED: inSUlin (REGULAR) HUMAN 1 UNIT/0.01 ML (CHARGE PER UNIT) ONE (16:20)
[2021-11-05 16:22] LABS: POTASSIUM 8.5 MMOL/L (3.6-5.0)
[2021-11-05] MEDS: DEXTROSE 50% 50 ML (IMS) SYR ONE ×2 (16:25→18:28)
[2021-11-05] MEDS ORDERED: LIDOCAINE DRIP 500 ML IV SCH (16:30)
[2021-11-05 16:42] LABS: BILIRUBIN,URINE NEGATIVE (NEGATIVE); CLARITY,URINE SL CLOUDY; COLOR,URINE YELLOW; GLUCOSE, URINE (UA) 1+ (NEGATIVE); KETONES,URINE TRACE (NEGATIVE); LEUKOCYTE ESTERASE ,URINE 1+ (NEGATIVE); NITRITE,URINE NEGATIVE (NEGATIVE); PH,URINE 8.5 (5-9); PROTEIN,URINE 3+ (NEGATIVE)
[2021-11-05 16:53] LABS: AMPHETAMINE SCREEN, URINE NEGATIVE (NEGATIVE); BARBITURATE SCREEN URINE NEGATIVE (NEGATIVE); BENZODIAZEPINES SCREEN URINE NEGATIVE (NEGATIVE); CANNABINOID SCREEN, URINE NEGATIVE (NEGATIVE); COCAINE SCREEN URINE NEGATIVE (NEGATIVE); METHADONE STAT NEGATIVE (NEGATIVE); METHAMPHETAMINE SCREEN URINE S NEGATIVE (NEGATIVE); OPIATE SCREEN URINE POSITIVE (NEGATIVE); OXYCODONE STAT NEGATIVE (NEGATIVE); PROPOXYPHENE STAT NEGATIVE (NEGATIVE); TRICYCLIC ANTIDEPRESSANTS SCRE NEGATIVE (NEGATIVE)
[2021-11-05 16:54] LABS: BACTERIA,URINE FEW /HPF; WBC,URINE 25-50 /HPF
[2021-11-05] MEDS ORDERED: FUROSEMIDE 40 MG/4 ML INJ (LASIX) IVP ONE (17:00)
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
[2021-11-05] MEDS ORDERED: CALCIUM CHLORIDE 1 GM/10 ML (IMS) SYR INJ ONE (17:15)
--- NOTE | 2021-11-05 17:48 | Diagnostic Imaging Report ---
INDICATION: Chest pain. EXAMINATION: Portable AP view of the chest was obtained. COMPARISON: Study of 10/10/2021. FINDINGS: Heart size is at the upper limits of normal. There is mild air trapping in the upper lobes. Minimal linear atelectasis is seen in left perihilar region. Defibrillator pads overlie the chest. Right jugular catheter reaches the mid superior vena cava. No pleural fluid is seen. IMPRESSION: Mild left perihilar atelectasis. Otherwise, no definite acute abnormality is seen. Dictated by: Dictated on workstation # [id number]
--- NOTE | 2021-11-05 17:55 | Progress Note-Post Operative ---
Post-Operative Progess Note Surgeon (s)/Mental Health Program Specialist (s) Surgeon FUENTES FARR DO Mental Health Program Specialist: none Pre-Operative Diagnosis Cardiac Arrest, Venous insufficiency, Hyperkalemia, ESRD Post-Operative Diagnosis same Procedure & Operative Findings Date of Procedure 11/05/21 Procedure Performed/Findings The patient was in their bed in the ICU, was prepped and draped in the sterile fashion. A surgical pause was performed. Ultrasound was used to locate the internal jugular vein. Once located anesthetic was infiltrated above it. Using an 18 gauge finder needle and watching with the US; the right internal jugular vein was accessed. Dark nonpulsatile blood was withdrawn. The wire was inserted. Fluoroscopy assured proper placement. The needle was removed. A [#11] blade scalpel was used to make a stab incision along the guidewire. Dilator sheath was then advanced over the wire using Seldinger technique and the dilator was removed. The [place] catheter was inserted over the guide wire using the Seldinger technique. The [place] wire was removed. The catheter was then accessed in all three ports without difficulty. Good flash of blood was seen and it was then flushed with saline. The catheter was sutured in place with 3-0 silk on a norbert needle. The areas were then washed and dried. Sterile dressing was placed over incision. The patient tolerated the procedure well without complication. Anesthesia Type local lidocaine Estimated Blood Loss Estimated blood loss (mL): scant Specimens/Packing Specimens Removed none FUENTES FARR DO Nov 05, 2021 17:54
[2021-11-05] MEDS ORDERED: LORazepam INJ 2 MG/ML (ATIVAN) VIAL IVP ONE (18:00)
[2021-11-05 18:07] VITALS: BP 177/85
[2021-11-05] MEDS ORDERED: inSUlin (REGULAR) HUMAN 1 UNIT/0.01 ML (CHARGE PER UNIT) IV ONE (18:15)
[2021-11-05] MEDS ORDERED: LIDOCAINE 1% INJ 50 ML (XYLOCAINE) VIAL IJ ONE (18:15)
[2021-11-05] MEDS ORDERED: DEXTROSE 50% 50 ML (IMS) SYR IV ONE (18:15)
== END 2021-11-05 18:07 | disposition short-term general hospital (02) ==
LOC: EDUNIT# 15:43 → ER 15:45
DX: I46.9 Cardiac arrest, cause unspecified (principal); I49.9 Cardiac arrhythmia, unspecified; E87.5 Hyperkalemia; N18.6 End stage renal disease; Z72.0 Tobacco use
CPT/HCPCS: 36680; 51702; 71045; 80053; 80306; 81000; 82947; 83735; 83874; 84132; 84484; 84703; 85025; 85610; 85730; 87077; 87088; 93005; 93041; 99285; G0480; 36415; 80320